=== PATIENT | male | born 1945 | race Caucasian/White ===

== ENCOUNTER 2018-09-11 22:40 | Observation (INO) | payer OTHER ==
--- NOTE | 2018-09-11 22:55 | ER ---
Nurse's Notes [facility] Name: Neftaly Varghese Age: 72 yrs Sex: Male : 1945 Arrival Date: 09/11/2018 Time: 22:45 Bed 4 Private MD: Diagnosis: Other chest pain;Bradycardia, unspecified;Cardiomegaly;Unspecified kidney failure Presentation: 09/11 22:48 Presenting complaint: Patient states: he was watching TV and had a sudden onset of aa1 substernal CP which lasted approx 15 mins. Reports pain did not radiate. Denies N/V, SOB or diaphoresis. Reports pain at this time has completely resolved. 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 Transition of care: patient was not received from another setting of care. Onset of symptoms was September 11, 2018. Risk Assessment: Do you want to hurt yourself or someone else? Patient reports no desire to harm self or others. Initial Sepsis Screen: Does the patient meet any 2 criteria? No. Patient's initial sepsis screen is negative. Does the patient have a suspected source of infection? No. Patient's initial sepsis screen is negative. Care prior to arrival: IV initiated. 18 GA, in the right antecubital area, Glucose check: 138 Oxygen administered. via nasal cannula. 22:48 Method Of Arrival: EMS: [facility] aa1 22:48 Acuity: DEVONTE 2 aa1 Triage Assessment: 22:57 General: Appears in no apparent distress. comfortable, Behavior is calm, cooperative, aa1 appropriate for age. Pain: Denies pain. Historical: - Allergies: 22:57 Codeine; aa1 - Home Meds: 22:57 cholecalciferol (vitamin D3) oral oral daily [Active]; Fish Oil 720-1,200 mg Oral cap aa1 twice a day for Arteriosclerotic Vascular Disease Prevention [Active]; aspirin 81 mg Oral TbEC 1 tab once daily for Prevention of Transient Ischemic Attacks [Active]; folic acid 1 mg Oral tab 1 tab once daily for Folate Deficiency [Active]; clopidogrel 75 mg Oral tab 1 tab once daily for Thrombosis Prevention after Percutaneous Coronary Intervention [Active]; lisinopril 5 mg Oral tab 1 tab once daily for Hypertension [Active]; amlodipine 10 mg tab 1 tab once daily for Hypertension [Active]; Zetia 10 mg Oral tab 1 tab once daily for Hyperlipidemia [Active]; Crestor 20 mg Oral tab 1 tab once daily for Mixed Hyperlipidemia [Active]; metoprolol succinate 50 mg oral Tb24 1 tab once daily [Active]; trazodone 50 mg Oral tab 1 tab nightly [Active]; Nitrostat 0.4 mg SL subl 1 tab every 5 minutes [Active]; melatonin 5 mg Oral cap nightly [Active]; 23:48 tamsulosin 0.4 mg Oral cp24 1 cap once daily for Urolithiasis [Active]; temazepam 30 mg mg2 Oral cap 1 cap once daily for insomnia [Active]; Vitamin D Oral 5000 unit daily [Active]; - PMHx: 22:57 Hyperlipidemia; Hypertension; TIA; Myocardial infarction; aa1 - PSHx: 22:57 Heart stents; ankle sx; aa1 - Immunization history:: Flu vaccine is not up to date. - Social history:: Smoking status: Patient uses tobacco products, smokes one pack cigarettes per day. - Family history:: not pertinent. - Ebola Screening: : No symptoms or risks identified at this time. Screenin:46 Abuse screen: Denies threats or abuse. Denies injuries from another. Nutritional mg2 screening: No deficits noted. Tuberculosis screening: No symptoms or risk factors identified. Fall Risk IV access (20 points). Gait- Weak (10 pts.). Assessment: 23:45 General: Appears in no apparent distress. comfortable, Behavior is calm, cooperative. mg2 Pain: Denies pain. Neuro: Level of Consciousness is awake, alert, obeys commands, Oriented to person, place, time, situation. Cardiovascular: Capillary refill < 3 seconds Patient's skin is warm and dry. Respiratory: Airway is patent Respiratory effort is even, unlabored, Respiratory pattern is regular, symmetrical. GI: No signs and/or symptoms were reported involving the gastrointestinal system. : No signs and/or symptoms were reported regarding the genitourinary system. EENT: No signs and/or symptoms were reported regarding the EENT system. Derm: No signs and/or symptoms reported regarding the dermatologic system. Derm: Musculoskeletal: Circulation, motion, and sensation intact. Capillary refill < 3 seconds. Vital Signs: 22:42 BP 146 / 91; Pulse 63; Resp 16; Temp 98.1; Pulse Ox 98% on R/A; Weight 86.18 kg; Height aa1 5 ft. 9 in. (175.26 cm); Pain 0/10; 22:54 Weight 86.18 kg; mg2 09/12 00:05 BP 152 / 80; Pulse 56; Resp 18; Temp 98.1(O); Pulse Ox 98% on R/A; Pain 0/10; mg2 09/11 22:42 Body Mass Index 28.06 (86.18 kg, 175.26 cm) aa1 ED Course: 09/11 22:42 Arm band placed on left wrist. Patient placed in an exam room, on a stretcher. aa1 22:42 Patient has correct armband on for positive identification. Placed in gown. Bed in low aa1 position. Call light in reach. Side rails up X2. residential monitor on. Pulse ox on. NIBP on. 22:45 Patient arrived in ED. maria e 22:46 Hi Forman MD is Attending Physician. maria e 22:50 Triage completed. aa1 22:50 EKG done, by ED staff, reviewed by Hi Forman MD. aa1 22:53 Dash Cazares RN is Primary Nurse. mg2 22:53 J Luis Casanova MD is Hospitalizing Provider. maria e 23:00 XRAY Chest (1 view) In Process Unspecified. EDMS 23:47 No provider procedures requiring assistance completed. Maintain EMS IV. Dressing mg2 intact. Good blood return noted. Site clean \T\ dry. Gauge \T\ site: 20 \T\ RAC. 09/12 00:04 Patient admitted, IV remains in place. mg2 Administered Medications: 09/11 23:13 Drug: Lovenox 1 mg/kg Route: Sub-Q; Site: right lower abdomen; mg2 23:49 Follow up: Response: No adverse reaction; Marked relief of symptoms mg2 23:14 Drug: NS 0.9% 1000 ml Route: IV; Rate: 125 ml/hr; Site: right antecubital; mg2 23:50 Follow up: Response: No adverse reaction; IV Status: Infusion continued upon admission; mg2 IV Intake: 125ml 23:14 Drug: Pepcid 20 mg Route: IVP; Site: right antecubital; mg2 23:49 Follow up: Response: No adverse reaction; Marked relief of symptoms mg2 Intake: 23:50 IV: 125ml; Total: 125ml. mg2 Outcome: 22:53 Decision to Hospitalize by Provider. maria e 09/12 00:04 Admitted to Tele accompanied by tech, via wheelchair, room 428, with chart, Report mg2 called to YEIMI Crow Condition: stable Instructed on the need for admit, Demonstrated understanding of instructions. 00:24 Patient left the ED. mg2 Signatures: Dispatcher [employer] EDMS Basia Hobbs RN RN aa1 Hi Forman MD MD cha Gardose, Michele, RN RN mg2
--- NOTE | 2018-09-11 22:55 | EDPHYS ---
Physician Documentation [facility] Name: Neftaly Varghese Age: 72 yrs Sex: Male : 1945 Arrival Date: 09/11/2018 Time: 22:45 Bed 4 Private MD: ED Physician Hi Forman HPI: 09/11 22:49 This 72 yrs old Male presents to ER via Unassigned with complaints of chest maria e pain. 22:49 The patient or guardian reports chest pain that is located primarily in the substernal maria e area. Onset: just prior to arrival. The pain does not radiate. Associated signs and symptoms: The patient has no apparent associated signs or symptoms. The chest pain is described as causing indigestion, a pressure. Duration: The patient or guardian reports a single episode, that is now resolved. Modifying factors: The symptoms are alleviated by nothing. the symptoms are aggravated by nothing. Severity of pain: At its worst the pain was moderate in the emergency department the pain has resolved and did so just prior to arrival. The patient has experienced similar episodes in the past, several times. Historical: - Allergies: 22:57 Codeine; aa1 - Home Meds: 22:57 cholecalciferol (vitamin D3) oral oral daily [Active]; Fish Oil 720-1,200 mg Oral cap aa1 twice a day for Arteriosclerotic Vascular Disease Prevention [Active]; aspirin 81 mg Oral TbEC 1 tab once daily for Prevention of Transient Ischemic Attacks [Active]; folic acid 1 mg Oral tab 1 tab once daily for Folate Deficiency [Active]; clopidogrel 75 mg Oral tab 1 tab once daily for Thrombosis Prevention after Percutaneous Coronary Intervention [Active]; lisinopril 5 mg Oral tab 1 tab once daily for Hypertension [Active]; amlodipine 10 mg tab 1 tab once daily for Hypertension [Active]; Zetia 10 mg Oral tab 1 tab once daily for Hyperlipidemia [Active]; Crestor 20 mg Oral tab 1 tab once daily for Mixed Hyperlipidemia [Active]; metoprolol succinate 50 mg oral Tb24 1 tab once daily [Active]; trazodone 50 mg Oral tab 1 tab nightly [Active]; Nitrostat 0.4 mg SL subl 1 tab every 5 minutes [Active]; melatonin 5 mg Oral cap nightly [Active]; 23:48 tamsulosin 0.4 mg Oral cp24 1 cap once daily for Urolithiasis [Active]; temazepam 30 mg mg2 Oral cap 1 cap once daily for insomnia [Active]; Vitamin D Oral 5000 unit daily [Active]; - PMHx: 22:57 Hyperlipidemia; Hypertension; TIA; Myocardial infarction; aa1 - PSHx: 22:57 Heart stents; ankle sx; aa1 - Immunization history:: Flu vaccine is not up to date. - Social history:: Smoking status: Patient uses tobacco products, smokes one pack cigarettes per day. - Family history:: not pertinent. - Ebola Screening: : No symptoms or risks identified at this time. ROS: 22:49 Constitutional: Negative for fever, chills, and weight loss, Eyes: Negative for injury, maria e pain, redness, and discharge, ENT: Negative for injury, pain, and discharge, Neck: Negative for injury, pain, and swelling, Respiratory: Negative for shortness of breath, cough, wheezing, and pleuritic chest pain, Abdomen/GI: Negative for abdominal pain, nausea, vomiting, diarrhea, and constipation, Back: Negative for injury and pain, : Negative for injury, bleeding, discharge, and swelling, MS/Extremity: Negative for injury and deformity, Skin: Negative for injury, rash, and discoloration, Neuro: Negative for headache, weakness, numbness, tingling, and seizure, Psych: Negative for depression, anxiety, suicide ideation, homicidal ideation, and hallucinations, Allergy/Immunology: Negative for hives, rash, and allergies, Endocrine: Negative for neck swelling, polydipsia, polyuria, polyphagia, and marked weight changes, Hematologic/Lymphatic: Negative for swollen nodes, abnormal bleeding, and unusual bruising. 22:49 Cardiovascular: Positive for chest pain. Exam: 22:49 Constitutional: This is a well developed, well nourished patient who is awake, alert, maria e and in no acute distress. Head/Face: Normocephalic, atraumatic. Eyes: Pupils equal round and reactive to light, extra-ocular motions intact. Lids and lashes normal. Conjunctiva and sclera are non-icteric and not injected. Cornea within normal limits. Periorbital areas with no swelling, redness, or edema. ENT: Nares patent. No nasal discharge, no septal abnormalities noted. Tympanic membranes are normal and external auditory canals are clear. Oropharynx with no redness, swelling, or masses, exudates, or evidence of obstruction, uvula midline. Mucous membranes moist. Neck: Trachea midline, no thyromegaly or masses palpated, and no cervical lymphadenopathy. Supple, full range of motion without nuchal rigidity, or vertebral point tenderness. No Meningismus. Chest/axilla: Normal chest wall appearance and motion. Nontender with no deformity. No lesions are appreciated. Respiratory: Lungs have equal breath sounds bilaterally, clear to auscultation and percussion. No rales, rhonchi or wheezes noted. No increased work of breathing, no retractions or nasal flaring. Abdomen/GI: Soft, non-tender, with normal bowel sounds. No distension or tympany. No guarding or rebound. No evidence of tenderness throughout. Back: No spinal tenderness. No costovertebral tenderness. Full range of motion. Male : Normal genitalia with no discharge or lesions. Skin: Warm, dry with normal turgor. Normal color with no rashes, no lesions, and no evidence of cellulitis. MS/ Extremity: Pulses equal, no cyanosis. Neurovascular intact. Full, normal range of motion. Neuro: Awake and alert, GCS 15, oriented to person, place, time, and situation. Cranial nerves II-XII grossly intact. Motor strength 5/5 in all extremities. Sensory grossly intact. Cerebellar exam normal. Normal gait. Psych: Awake, alert, with orientation to person, place and time. Behavior, mood, and affect are within normal limits. 22:49 Cardiovascular: Rate: normal, Rhythm: regular, Pulses: no pulse deficits are appreciated, Heart sounds: normal, Edema: is not appreciated, JVD: is not appreciated. Vital Signs: 22:42 BP 146 / 91; Pulse 63; Resp 16; Temp 98.1; Pulse Ox 98% on R/A; Weight 86.18 kg; Height aa1 5 ft. 9 in. (175.26 cm); Pain 0/10; 22:54 Weight 86.18 kg; mg2 09/12 00:05 BP 152 / 80; Pulse 56; Resp 18; Temp 98.1(O); Pulse Ox 98% on R/A; Pain 0/10; mg2 09/11 22:42 Body Mass Index 28.06 (86.18 kg, 175.26 cm) aa1 MDM: 09/11 22:46 Patient medically screened. [facility] 22:49 Data reviewed: vital signs, nurses notes, lab test result(s), EKG, radiologic studies, maria e plain films. 09/11 22:48 Order name: Basic Metabolic Panel; Complete Time: 00:10 [facility] 09/11 22:48 Order name: CBC with Diff; Complete Time: 00:10 [facility] 09/11 22:48 Order name: LFT's; Complete Time: 00:10 [facility] 09/11 22:48 Order name: Magnesium; Complete Time: 00:10 [facility] 09/11 22:48 Order name: NT PRO-BNP; Complete Time: 00:10 [facility] 09/11 22:48 Order name: PT-INR; Complete Time: 00:10 [facility] 09/11 22:48 Order name: Troponin (emerg Dept Use Only); Complete Time: 00:10 [facility] 09/11 22:48 Order name: Lipase; Complete Time: 00:10 [facility] 09/11 23:18 Order name: Basic Metabolic Panel [facility] 09/11 23:18 Order name: CBC with Automated Diff [facility] 09/11 23:18 Order name: Lipid Profile [facility] 09/11 23:18 Order name: Lipid Profile [facility] 09/11 23:18 Order name: Troponin I [facility] 09/11 23:18 Order name: Troponin I [facility] 09/11 22:48 Order name: XRAY Chest (1 view); Complete Time: 23:35 [facility] 09/11 22:48 Order name: EKG; Complete Time: 22:49 [facility] 09/11 22:48 Order name: Cardiac monitoring; Complete Time: 23:14 [facility] 09/11 22:48 Order name: EKG - Nurse/Tech; Complete Time: 23:14 [facility] 09/11 22:48 Order name: IV Saline Lock; Complete Time: 23:14 [facility] 09/11 23:18 Order name: Heart Healthy [facility] 09/11 23:18 Order name: Echo with Doppler [facility] 09/11 23:18 Order name: EKG Electrocardiogram [facility] 09/11 23:18 Order name: EKG Electrocardiogram [facility] 09/11 23:18 Order name: Troponin I [facility] 09/11 23:18 Order name: Troponin I [facility] 09/11 23:18 Order name: Troponin I [facility] 09/11 23:18 Order name: Troponin I [facility] 09/11 22:48 Order name: Labs collected and sent; Complete Time: 23:15 [facility] 09/11 22:48 Order name: O2 Per Protocol; Complete Time: 23:15 [facility] 09/11 22:48 Order name: O2 Sat Monitoring; Complete Time: 23:15 [facility] Administered Medications: 23:13 Drug: Lovenox 1 mg/kg Route: Sub-Q; Site: right lower abdomen; mg2 23:49 Follow up: Response: No adverse reaction; Marked relief of symptoms mg2 23:14 Drug: NS 0.9% 1000 ml Route: IV; Rate: 125 ml/hr; Site: right antecubital; mg2 23:50 Follow up: Response: No adverse reaction; IV Status: Infusion continued upon admission; mg2 IV Intake: 125ml 23:14 Drug: Pepcid 20 mg Route: IVP; Site: right antecubital; mg2 23:49 Follow up: Response: No adverse reaction; Marked relief of symptoms mg2 Disposition: 09/11/18 22:53 Hospitalization ordered by J Luis Casanova for Observation. Preliminary diagnosis are Other chest pain, Bradycardia, unspecified, Cardiomegaly, Unspecified kidney failure. - Bed requested for Telemetry/MedSurg (observation). - Status is Observation. mg2 - Condition is Stable. - Problem is new. - Symptoms have improved. UTI on Admission? No Signatures: Dispatcher [employer] EDMS Miroslava Valentin RN RN Basia Lorenzo RN RN aa1 Hi Forman MD MD cha Gardose, Michele, RN RN mg2 Corrections: (The following items were deleted from the chart) 23:32 22:53 Hospitalization Ordered by J Luis Casanova MD for Observation. Preliminary cooper diagnosis is Other chest pain; Bradycardia, unspecified. Bed requested for Telemetry/MedSurg (observation). Status is Observation. Condition is Stable. Problem is new. Symptoms have improved. UTI on Admission? No. maria e 23:35 23:32 09/11/2018 22:53 Hospitalization Ordered by J Luis Casanova MD for Observation. maria e Preliminary diagnosis is Other chest pain; Bradycardia, unspecified. Bed requested for Telemetry/MedSurg (observation). Status is Observation. Condition is Stable. Problem is new. Symptoms have improved. UTI on Admission? No. cooper 09/12 00:10 09/11 23:35 09/11/2018 22:53 Hospitalization Ordered by J Luis Casanova MD for maria e Observation. Preliminary diagnosis is Other chest pain; Bradycardia, unspecified; Cardiomegaly. Bed requested for Telemetry/MedSurg (observation). Status is Observation. Condition is Stable. Problem is new. Symptoms have improved. UTI on Admission? No. maria e 09/12 00:24 00:10 09/11/2018 22:53 Hospitalization Ordered by J Luis Casanova MD for Observation. mg2 Preliminary diagnosis is Other chest pain; Bradycardia, unspecified; Cardiomegaly; Unspecified kidney failure. Bed requested for Telemetry/MedSurg (observation). Status is Observation. Condition is Stable. Problem is new. Symptoms have improved. UTI on Admission? No. maria e
[2018-09-11] MEDS ORDERED: NA CHLORIDE 0.9% 1,000 ML ONE (23:09)
[2018-09-11] MEDS ORDERED: FAMOTIDINE 20 MG/2 ML VIAL IV ONE (23:09)
[2018-09-11] MEDS ORDERED: ENOXAPARIN 80 MG/0.8 ML SQ ONE (23:09)
--- NOTE | 2018-09-11 23:11 | RAD REPORT ---
EXAM DESCRIPTION: RAD - Chest Single View - 09/11/2018 11:00 pm CLINICAL HISTORY: CHEST PAIN Chest pain. COMPARISON: Abdomen 1 View (KUB) dated 07/28/2017; Abdomen 1 View (KUB) dated 11/03/2016; Abdomen 1 Vi ew (KUB) dated 08/06/2016; Abdomen 1 View (KUB) dated 06/30/2016; Ct Low Dose Chest Screening dated 03/23/2017; Chest Single View dated 10/03/2015 FINDINGS: Portable technique limits examination quality. The lungs are emphysematous but grossly clear. The heart is mildly enlarged in size. No displaced fra ctures. IMPRESSION: Mild cardiomegaly. Mild COPD.
[2018-09-11] MEDS ORDERED: MORPHINE 4 MG/ML SYR IV PRN (23:13)
[2018-09-11] MEDS ORDERED: ACETAMINOPHEN 500 MG TAB PO PRN (23:13)
[2018-09-11] MEDS ORDERED: ALPRAZOLAM 0.25 MG TABLET PO PRN (23:13)
[2018-09-11 23:37] LABS: Absolute Lymphocytes (CBC) 1.2 K/uL (0.7-4.9); Absolute Monocytes 0.6 K/uL (0.1-1.3); Absolute Neutrophil 4.7 K/uL (1.8-8.0); Basophils % 0.5 % (0-1.3); Eosinophils % 3.1 % (0-4.4); Hematocrit 41.6 % (39.6-49.0); MPV 7.8 fL (7.6-11.3); Monocytes % 8.3 % (3.3-12.3); RBC Red Blood Cell Count 4.54 M/uL (4.33-5.43)
[2018-09-11 23:38] LABS: Protime INR 0.96
[2018-09-11 23:58] LABS: ALT/SGPT 20 U/L (12-78); AST/SGOT 15 U/L (15-37); Albumin 3.4 g/dL (3.4-5.0); Alkaline Phosphatase 99 U/L (45-117); BUN Blood Urea Nitrogen 27 mg/dL (7-18); Bicarbonate 23 mmol/L (21-32); Bilirubin Direct < 0.1 mg/dL (0-0.2); Bilirubin Total 0.3 mg/dL (0.2-1.0); Glucose Level 105 mg/dL (74-106); Lipase 239 U/L (73-393); Magnesium 2.2 mg/dL (1.8-2.4); NT PRO-BNP 480 pg/mL (<125); Potassium 4.2 mmol/L (3.5-5.1); Protein, Total 6.7 g/dL (6.4-8.2); Sodium Level 141 mmol/L (136-145); Troponin (Emerg Dept Use Only) 0.03 ng/mL (0.0-0.045)
[2018-09-12 01:19] VITALS: BMI 27.4
[2018-09-12] MEDS ORDERED: NA CHLORIDE 0.9% 1,000 ML IV SCH (02:00)
[2018-09-12 04:58] LABS: Absolute Lymphocytes (CBC) 1.5 K/uL (0.7-4.9); Absolute Monocytes 0.5 K/uL (0.1-1.3); Absolute Neutrophil 4.3 K/uL (1.8-8.0); Basophils % 0.6 % (0-1.3); Eosinophils % 3.2 % (0-4.4); Hematocrit 40.7 % (39.6-49.0); Lymphocytes % 22.4 % (15.3-44.8); MPV 7.9 fL (7.6-11.3); Monocytes % 6.9 % (3.3-12.3); RBC Red Blood Cell Count 4.47 M/uL (4.33-5.43)
[2018-09-12 05:09] LABS: Potassium 4.5 mmol/L (3.5-5.1)
--- NOTE | 2018-09-12 07:05 | EKG ---
Test Date: 2018-09-11 Test Time: 22:48:38 Supervisor Tower: MG MEASUREMENT RESULTS: Intervals: Rate: 56 MT: QRSD: 104 QT: 442 QTc: 426 [place]: P: MT: QRS: 37 T: 98 INTERPRETIVE STATEMENTS: Sinus bradycardia Non specific ST and T wave abnormality Abnormal ECG Compared to ECG 12/04/2015 08:38:51 ST (T wave) deviation now present Electronically Signed On 09-12-18 07:05:09 CDT by Tyrel Mann
[2018-09-12] MEDS ORDERED: NITROGLYCERIN 0.4 MG/TAB SL PRN (08:00)
[2018-09-12] MEDS ORDERED: IRON PO SCH (09:00)
[2018-09-12] MEDS ORDERED: ENOXAPARIN 40 MG/0.4 ML SQ SCH (09:00)
[2018-09-12] MEDS ORDERED: [UNRECOGNIZED DRUG - OTHER] PO SCH (09:00)
[2018-09-12] MEDS ORDERED: FOLIC ACID 1 MG TABLET PO SCH (09:00)
[2018-09-12] MEDS ORDERED: ASPIRIN EC 81 MG TAB PO SCH ×2 (09:00)
[2018-09-12] MEDS ORDERED: LISINOPRIL 5 MG TAB PO SCH (09:00)
[2018-09-12] MEDS ORDERED: MV MN PO SCH (09:00)
[2018-09-12] MEDS ORDERED: METOPROLOL TAR 50 MG TAB PO SCH (09:00)
[2018-09-12] MEDS ORDERED: METOPROLOL XL 50 MG TAB PO SCH (09:00)
[2018-09-12] MEDS ORDERED: FISH OIL PO SCH (09:00)
[2018-09-12] MEDS ORDERED: EPA PO SCH (09:00)
[2018-09-12] MEDS ORDERED: HERBAL CMPLX PO SCH (09:00)
[2018-09-12] MEDS ORDERED: DHA PO SCH (09:00)
[2018-09-12] MEDS ORDERED: CLOPIDOGREL 75 MG TABLET PO SCH (09:00)
[2018-09-12] MEDS ORDERED: EZETIMIBE 10 MG TAB PO SCH (09:00)
[2018-09-12] MEDS ORDERED: VITAMIN D 5,000 UNIT CAP PO SCH (09:00)
[2018-09-12] MEDS ORDERED: REGADENOSON 0.4 MG/5 ML SYR IV ONE (09:38)
[2018-09-12 10:25] VITALS: O2SAT 97
--- NOTE | 2018-09-12 11:33 | ECHO ---
HEIGHT: 5 ft 9 in WEIGHT: 186 lb 0 oz DATE OF STUDY: 09/12/[address]: J Luis Casanova MD 2-DIMENSIONAL: YES M.MODE: YES DOPPLER: YES COLOR FLOW: YES TDS: NO PORTABLE: NO DEFINITY: NO BUBBLE STUDY: NO DIAGNOSIS: CHEST PAIN, RULE OUT ACS CARDIAC HISTORY: CATHERIZATION: NO SURGERY: NO PROSTHETIC VALVE: NO PACEMAKER: NO MEASUREMENTS (cm) DIASTOLIC (NORMALS) SYSTOLIC (NORMALS) IVSd 1.0 (0.6-1.2) LA Diam 3.5 (1.9-4.0) LVEF 64% LVIDd 5.3 (3.5-5.7) LVIDs 3.5 (2.0-3.5) %FS 35% LVPWd 1.2 (0.6-1.2) Ao Diam 2.7 (2.0-3.7) 2 DIMENSIONAL ASSESSMENT: RIGHT ATRIUM: NORMAL LEFT ATRIUM: NORMAL RIGHT VENTRICLE: NORMAL LEFT VENTRICLE: NORMAL TRICUSPID VALVE: NORMAL MITRAL VALVE: NORMAL PULMONIC VALVE: NORMAL AORTIC VALVE: NORMAL PERICARDIAL EFFUSION: NONE AORTIC ROOT: NORMAL LEFT VENTRICULAR WALL MOTION: NORMAL DOPPLER/COLOR FLOW: NORMAL COMMENTS: NORMAL 2D ECHOCARDIOGRAM WITH DOPPLER. TECHNOLOGIST: Dakota HOBSON
--- NOTE | 2018-09-12 11:42 | TREADPHA ---
DX: CHEST PAIN Date of Study: 09/12/2018 Ht: 5 9 Wt: 186 lb 0 oz Consulting Physician: JAMIE MEDICATIONS: TYLENOL, XANAX, NORVASC, ASPIRIN, PLAVIX, LOVENOX, LISINOPRIL, TOPROL XL, LOPRESSOR, NITROSTAT HISTORY: 72 YEAR OLD MALE HERE FOR CHEST PAIN. HISTORY OF HYPERLIPIDEMIA, TIA, HYPERTENSION AND MYOCARDIAL INFARCTION. PHYSICIAL EXAMINATION: RESTING B.P.: 155/73 RESTING H.R.: 45 RESTING EKG: SINUS BRADYCARDIA. NON SPECIFIC T ABNORMALITY, CANNOT RULE OUT SEPTAL INFARCTION. PROTOCOL: LEXISCAN EXERCISE TIME: 3:30 B.P. AT [place] STRESS: 139/60 IMPRESSION: LEXISCAN STRESS TEST PERFORMED. CARDIOLITE INJECTED PER PROTOCOL. NO PREMATURE VENTRICUALR COMPLEXES AND PREMATURE ATRIAL COMPLEXES NOTED. DENIES ANY CHEST PAIN. SEE NUCLEAR MEDICINE REPORT. NON DIAGNOSTIC EKG WITH STRESS.
--- NOTE | 2018-09-12 11:46 | RAD REPORT ---
EXAM DESCRIPTION: NM - Rest Stress Cardiac Imaging - 09/12/2018 11:38 am CLINICAL HISTORY: Chest pain COMPARISON: None. TECHNIQUE: The patient was administered approximately 10 mCi of Tc 99m Sestamibi prior to resting SP ECT imaging of the heart. The patient was then administered approximately 30 mCi of Tc 99m Sestamibi following exercise or pharmacologic stress. Multiplanar SPECT images were reviewed. FINDINGS: The end diastolic volume is 132 ml, the end systolic volume is 73 ml, and the ejection fra ction is 45 %. A large fixed defect involves the entirety of the inferior wall from base to apex. This extends to in clude portions of the septum and lateral wall. Stress-induced ischemia is not identifiable. IMPRESSION: No stress-induced ischemia. Old infarction changes with large fixed defect involving the entire inferior wall from base to apex. Portions of the septum and lateral wall also included. End-diastolic volume is enlarged at 1:00 32 milliliters. Ejection fraction is below normal at 45%.
[2018-09-12 12:24] VITALS: BP 161/70; TEMP 97.5
[2018-09-12] MEDS ORDERED: AMLODIPINE 10 MG TAB PO SCH (13:00)
--- NOTE | 2018-09-12 14:08 | P.DS ---
Admission Date: 09/11/18 Discharge Date: 09/12/18 Primary Care Provider: Dr. Davis; Cardiology-Dr. Garber Disposition: ROUTINE DISCHARGE Discharge Condition: GOOD Reason for Admission: Chest pain Consultations: Cardiology-Dr. Garber Procedures: ECHO: Ejection fraction 64% LEFT VENTRICULAR WALL MOTION: NORMAL DOPPLER/COLOR FLOW: NORMAL COMMENTS: NORMAL 2D ECHOCARDIOGRAM WITH DOPPLER. Cardiac stress test: COMPARISON: None. TECHNIQUE: The patient was administered approximately 10 mCi of Tc 99m Sestamibi prior to resting SPECT imaging of the heart. The patient was then administered approximately 30 mCi of Tc 99m Sestamibi following exercise or pharmacologic stress. Multiplanar SPECT images were reviewed. FINDINGS: The end diastolic volume is 132 ml, the end systolic volume is 73 ml , and the ejection fraction is 45 %. A large fixed defect involves the entirety of the inferior wall from base to apex. This extends to include portions of the septum and lateral wall. Stress- induced ischemia is not identifiable. IMPRESSION: No stress-induced ischemia. Old infarction changes with large fixed defect involving the entire inferior wall from base to apex. Portions of the septum and lateral wall also included. End-diastolic volume is enlarged at 1:00 32 milliliters. Ejection fraction is below normal at 45%. Medical Problem List: Chest pain with history of CAD Hypertension Bradycardia secondary to medication Peripheral vascular disease Hyperlipidemia BPH Depression Brief History of Present Illness: 72-year-old male presented to emergency room with chest pain. Patient with underlying history of CAD, hypertension, hyperlipidemia. Patient admitted for further evaluation. Hospital Course: Patient presented with chest pain. Patient with underlying history of CAD and peripheral vascular disease. Patient had slight elevation of cardiac enzymes. Echocardiogram shows normal ejection fraction. Cardiac stress test showed no stress-induced ischemia. Case discussed with his knife finisher-Dr. Garber. No further cardiac intervention recommended. Patient had mild bradycardia. Cardiology recommends to decrease Toprol XL 25 mg at discharge. Patient will also be provided nitroglycerin to be use as needed for chest pain. Recommend to follow up with cardiology later this week to follow up this hospitalization and continue his care. At discharge he is without any significant chest pain. Patient will continue with aspirin 81 mg daily and Plavix 75 mg daily. Patient with underlying hypertension. Medications have been adjusted. Metoprolol has been decreased due to bradycardia. At discharge he will continue with lisinopril 5 mg daily, Norvasc 10 mg 1 pill twice daily, and Toprol XL 25 mg daily. Patient will follow up with cardiology later this week. Further adjustment can be done by cardiology. Patient with BPH. At discharge, hhe will continue with Flomax 0.4 mg daily. Patient with depression. Patient will continue with trazodone 50 mg at bedtime. Patient with hyperlipidemia. At discharge he will continue with Zetia 10 mg daily, fish oil 1 pill twice daily, and Crestor 20mg daily. Vital Signs/Physical Exam: Temp Pulse Resp BP Pulse Ox 97.5 F 48 L 18 161/70 H 96 09/12/18 12:00 09/12/18 13:38 09/12/18 12:00 09/12/18 13:38 09/12/18 12:00 General: Alert, In no apparent distress, Oriented x3, Cooperative HEENT: Atraumatic Neck: Supple Respiratory: Clear to auscultation bilaterally, Normal air movement Cardiovascular: Normal pulses, Regular rate/rhythm Gastrointestinal: Normal bowel sounds, Soft and benign, Non-distended, No tenderness, No masses, No rebound, No guarding Musculoskeletal: No erythema, No tenderness, No warmth Integumentary: No tenderness/swelling, No erythema, No warmth, No cyanosis Neurological: Normal speech, Normal strength at 5/5 x4 extr, Normal tone, Normal affect Laboratory Data at Discharge: WBC 6.5 K/uL (4.3-10.9) 09/12/18 04:32 Hgb 13.8 g/dL (13.6-17.9) 09/12/18 04:32 Hct 40.7 % (39.6-49.0) 09/12/18 04:32 Plt Count 226 K/uL (152-406) 09/12/18 04:32 PT 11.4 SECONDS (9.5-12.5) 09/11/18 23:00 INR 0.96 09/11/18 23:00 Sodium 141 mmol/L (136-145) 09/12/18 04:32 Potassium 4.5 mmol/L (3.5-5.1) 09/12/18 04:32 BUN 25 mg/dL (7-18) H 09/12/18 04:32 Creatinine 2.23 mg/dL (0.55-1.3) H 09/12/18 04:32 Glucose 105 mg/dL (74-106) 09/12/18 04:32 Magnesium 2.2 mg/dL (1.8-2.4) 09/11/18 23:00 Total Bilirubin 0.3 mg/dL (0.2-1.0) 09/11/18 23:00 AST 15 U/L (15-37) 09/11/18 23:00 ALT 20 U/L (12-78) 09/11/18 23:00 Alkaline Phosphatase 99 U/L (45-117) 09/11/18 23:00 Troponin I 0.13 ng/mL (0.0-0.045) H 09/12/18 04:32 Triglycerides Cancelled 09/12/18 06:00 Cholesterol Cancelled 09/12/18 06:00 HDL Cholesterol Cancelled 09/12/18 06:00 Cholesterol/HDL Ratio Cancelled 09/12/18 06:00 Lipase 239 U/L (73-393) 09/11/18 23:00 Home Medications: Clopidogrel Bisulfate [Plavix*] 75 mg PO DAILY 06/25/13 Tamsulosin [Flomax*] 0.4 mg PO BEDTIME 06/25/13 Lisinopril [Prinivil*] 5 mg PO DAILY 12/04/15 Melatonin 5 mg PO BEDTIME 06/24/16 Amlodipine [Norvasc*] 10 mg PO BID tab 09/12/18 Aspirin [Ecotrin 81 MG] 81 mg PO DAILY 09/12/18 Cholecalciferol (Vitamin D3) [Vitamin D 5,000 IU Cap*] 1 cap PO DAILY 09/12/18 Ezetimibe [Zetia*] 10 mg PO DAILY 09/12/18 Fish Oil/Dha/Epa [Fish Oil 1,200 mg Fish Oil] 1 cap PO BID 09/12/18 Folic Acid 1 mg PO DAILY 09/12/18 Metoprolol Succinate [Toprol Xl] 25 mg PO DAILY #30 tab 09/12/18 Mv-Mn/Iron/FA/Herbal Cmplx#190 [Vitamin D3 Complete Caplet] 1 tab PO DAILY 09/12 Nitroglycerin [Nitrostat*] 0.4 mg SL SEECOM PRN #30 tab 09/12/18 Rosuvastatin Calcium [Crestor] 20 mg PO DAILY 04/29/19 Trazodone [Desyrel*] 50 mg PO BEDTIME 09/12/18 New Medications: Metoprolol Succinate [Toprol Xl] 25 mg PO DAILY #30 tab Nitroglycerin [Nitrostat*] 0.4 mg SL SEECOM PRN #30 tab PRN Reason: Shortness Of Breath Patient Discharge Instructions: 1. Recommend to follow up with his PCP in 1 week to follow up this hospitalization. 2. Patient presented with chest pain. Patient with underlying history of CAD and peripheral vascular disease. Patient had slight elevation of cardiac enzymes. Echocardiogram shows normal ejection fraction. Cardiac stress test showed no stress-induced ischemia. Case discussed with his knife finisher-Dr. Garber. No further cardiac intervention recommended. Patient had mild bradycardia. Cardiology recommends to decrease Toprol XL 25 mg at discharge. Patient will also be provided nitroglycerin to be use as needed for chest pain. Recommend to follow up with cardiology later this week to follow up this hospitalization and continue his care. Patient will continue with aspirin 81 mg daily and Plavix 75 mg daily. 3. Patient with underlying hypertension. Medications have been adjusted. Metoprolol has been decreased due to bradycardia. At discharge he will continue with lisinopril 5 mg daily, Norvasc 10 mg 1 pill twice daily, and Toprol XL 25 mg daily. Patient will follow up with cardiology later this week. Further adjustment can be done by cardiology. 4. Patient with BPH. At discharge, hhe will continue with Flomax 0.4 mg daily. 5. Patient with depression. Patient will continue with trazodone 50 mg at bedtime. 6. Patient with hyperlipidemia. At discharge he will continue with Zetia 10 mg daily, fish oil 1 pill twice daily, and Crestor 20mg daily. Diet: AHA Activity: Ad wandy Time spent managing pt's care (in minutes): 55
--- NOTE | 2018-09-12 16:27 | CON ---
History Of Present Illness: Mr. Varghese is 72, came to the hospital with chest pain. Chest pain res olved. His EKG is not indicative of acute AR, but troponins are elevated. He is being evaluated for possible worsening of underlying ischemic heart disease. He had a myocardial infarction somewhere a round 10 years ago. He is not certain about it. He was treated with a stent. In 2016, we attempted to do a cardiac cath, and we were unable to accomplish it because of his aorta being occluded. A br achial artery cath was done from the left arm. It showed that his LAD stent from 2008 or earlier was widely patent. There is mild disease in the circumflex at right. Normal ejection fraction. He has been getting medical therapy since then. Medications: His home medications have been amlodipine, Flomax, Plavix, lisinopril, nitroglycerin, m elatonin, trazodone, Crestor, metoprolol, Zetia, folic acid, aspirin, fish oil. Allergies: HE IS ALLERGIC TO CODEINE AND FENTANYL. Physical Examination: General: He is 5 feet 9 inches, 186 pounds. HEENT: Unremarkable. Lungs: Clear. Carotids, no bruit. Heart: Exam within normal limits. Distal pulses diminished. Imaging: His electrocardiogram shows sinus bradycardia and nonspecific ST and T-wave abnormality. Impression: The patient smokes cigarettes. I am concerned that the patient may have underlying isch emic heart disease. We will see the results of the stress test and decide if we should attempt [facility] cardiac catheterization. If we do so, his creatinine is quite elevated and the discussion will hernández ve to include the approach, we will not be able to do a femoral approach and also that his kidney fun ction is so bad, we should get a nephrology consult to see if that can be improved before we subject him to a cardiac cath and a large dye load that is very likely to worsen h is renal function. VISHNU/DAWIT Voice ID: [id number] Report ID: [id number]
[2018-09-12] MEDS ORDERED: ROSUVASTATIN 10 MG TAB PO SCH (21:00)
[2018-09-12] MEDS ORDERED: MELATONIN 5 MG TABLET PO SCH (21:00)
[2018-09-12] MEDS ORDERED: TRAZODONE 50 MG TABLET PO SCH (21:00)
[2018-09-12] MEDS ORDERED: TAMSULOSIN 0.4 MG SR CAP PO SCH (21:00)
== END 2018-09-12 15:50 | disposition home or self-care (01) ==
LOC: ER 22:40 → ERHOLD 23:13 → 4TH 09-12 00:04
PROVIDERS: ADMIT Hospitalist; ATTEND Family Medicine
DX: R07.9 Chest pain, unspecified (principal); R00.1 Bradycardia, unspecified; T44.7X5A Adverse effect of beta-adrenoreceptor antagonists, initial encounter; Y92.009 Unspecified place in unspecified non-institutional (private) residence as the place of occurrence of the external cause; N40.0 Benign prostatic hyperplasia without lower urinary tract symptoms; I10 Essential (primary) hypertension; I25.10 Atherosclerotic heart disease of native coronary artery without angina pectoris; F32.9 Major depressive disorder, single episode, unspecified; E78.5 Hyperlipidemia, unspecified; I73.9 Peripheral vascular disease, unspecified; F17.210 Nicotine dependence, cigarettes, uncomplicated
CPT/HCPCS: 96361; 93005; 93017; 93306; 85025 ×2; 80048 ×2; 36415 ×2; 83735; 85610; 80061; 80076; 84484 ×3; 83690; 83880; 71045; 78452; 96372; 96374; 99285; J1650 ×2; J2785; J7030; A9500; G0378 ×2

== ENCOUNTER 2019-05-10 09:50 | Emergency (ER) | payer OTHER ==
[2019-05-10] MEDS ORDERED: MORPHINE 4 MG/ML SYR ONE (10:13)
[2019-05-10] MEDS ORDERED: DIAZEPAM 10 MG/2 ML INJ SYRINGE ONE (10:13)
[2019-05-10] MEDS ORDERED: ONDANSETRON 4 MG/2 ML VIAL ONE (10:14)
[2019-05-10] MEDS ORDERED: NA CHLORIDE 0.9% 1,000 ML ONE (10:14)
[2019-05-10] MEDS ORDERED: METOPROLOL TARTRATE 5 MG/5 ML INJ IV ONE (10:15)
--- NOTE | 2019-05-10 10:43 | RAD REPORT ---
EXAM DESCRIPTION: RAD - Chest Single View - 05/10/2019 10:38 am CLINICAL HISTORY: CHEST PAIN Chest pain. COMPARISON: Chest Single View dated 09/11/2018; Abdomen 1 View (KUB) dated 07/28/2017; Abdomen 1 View (KUB) dated 11/03/2016; Abdomen 1 View (KUB) dated 08/06/2016 FINDINGS: Portable technique limits examination quality. Mild pulmonary edema is seen. The heart is moderately enlarged in size. No displaced fractures. IMPRESSION: Mild CHF versus volume overload pattern.
[2019-05-10 10:45] LABS: Absolute Lymphocytes (CBC) 1.1 K/uL (0.7-4.9); Basophils % 0.4 % (0-1.3); Hematocrit 41.4 % (39.6-49.0); Lymphocytes % 15.3 % (15.3-44.8); MPV 8.5 fL (7.6-11.3); RBC Red Blood Cell Count 4.57 M/uL (4.33-5.43)
[2019-05-10 10:49] LABS: Protime INR 1.12
--- NOTE | 2019-05-10 10:57 | ER ---
Nurse's Notes [facility] Name: Neftaly Varghese Age: 73 yrs Sex: Male : 1945 Arrival Date: 05/10/2019 Time: 09:51 Bed 4 Private MD: Alexander Davis Diagnosis: Tachyarrythmia;Atrial fibrillation and flutter;Sinus Bradycardia;wide complex ventricular tachycardia;Non-ST elevation (NSTEMI) myocardial infarction Presentation: 05/10 10:00 Acuity: DEVONTE 1 iw 10:00 Presenting complaint: Patient states: chest pain that felt like heart burn since iw Wednesday, yesterday felt SOb, worse today, +cough, no fever, feels faint, dizziness when standing. Transition of care: patient was not received from another setting of care. Onset of symptoms was May 09, 2019. 10:00 Method Of Arrival: Wheelchair iw 11:12 Risk Assessment: Do you want to hurt yourself or someone else? Patient reports no iw desire to harm self or others. Initial Sepsis Screen: Does the patient meet any 2 criteria? RR > 20 per min. HR > 90 bpm. Does the patient have a suspected source of infection? No. Patient's initial sepsis screen is negative. Care prior to arrival: None. Historical: - Allergies: 10:22 Codeine; iw - PMHx: 10:22 Hyperlipidemia; Myocardial infarction; Hypertension; TIA; iw - PSHx: 10:22 Heart stents; ankle sx; carotid stents; Kidney stents; iw - Immunization history:: Adult Immunizations unknown. - Ebola Screening: : Patient negative for fever greater than or equal to 101.5 degrees Fahrenheit, and additional compatible Ebola Virus Disease symptoms Patient denies exposure to infectious person Patient denies travel to an Ebola-affected area in the 21 days before illness onset No symptoms or risks identified at this time. - Social history:: Smoking status: unknown. Screenin:00 Abuse screen: Denies threats or abuse. Denies injuries from another. Nutritional jl7 screening: No deficits noted. Tuberculosis screening: No symptoms or risk factors identified. Fall Risk IV access (20 points). Total Lr Fall Scale indicates No Risk (0-24 pts). Assessment: 10:10 General: Appears distressed, uncomfortable, Behavior is cooperative, anxious. Pain: jl7 Complains of pain in chest Pain currently is 8 out of 10 on a pain scale. Pain began 2-3 days ago. Is continuous. Neuro: Level of Consciousness is awake, alert, obeys commands, Oriented to person, place, time, situation. Cardiovascular: Rhythm is ventricular tachycardia. Respiratory: Airway is patent Respiratory effort is even, labored, Respiratory pattern is symmetrical, tachypnea Breath sounds are clear bilaterally. Derm: Skin is pink, warm \T\ dry. 11:00 Reassessment: Patient appears in no apparent distress at this time. Patient and/or jl7 family updated on plan of care and expected duration. Pain level reassessed. Patient is alert, oriented x 3, equal unlabored respirations, skin warm/dry/pink. Patient states feeling better. Patient states symptoms have improved. 12:00 Reassessment: Patient appears in no apparent distress at this time. No changes from jl7 previously documented assessment. Patient and/or family updated on plan of care and expected duration. Pain level reassessed. Patient is alert, oriented x 3, equal unlabored respirations, skin warm/dry/pink. Patient denies pain at this time. 13:00 Reassessment: Patient appears in no apparent distress at this time. Patient and/or jl7 family updated on plan of care and expected duration. Pain level reassessed. Patient is alert, oriented x 3, equal unlabored respirations, skin warm/dry/pink. 14:00 Reassessment: Patient appears in no apparent distress at this time. Patient and/or jl7 family updated on plan of care and expected duration. Pain level reassessed. Patient is alert, oriented x 3, equal unlabored respirations, skin warm/dry/pink. 15:00 Reassessment: Patient appears in no apparent distress at this time. Patient and/or jl7 family updated on plan of care and expected duration. Pain level reassessed. Patient is alert, oriented x 3, equal unlabored respirations, skin warm/dry/pink. 17:00 Reassessment: Patient appears in no apparent distress at this time. No changes from jl7 previously documented assessment. Patient and/or family updated on plan of care and expected duration. Pain level reassessed. Patient is alert, oriented x 3, equal unlabored respirations, skin warm/dry/pink. 19:00 Reassessment: EMS at bedside to transport pt. jl7 Vital Signs: 10:05 BP 92 / 64; Pulse 179; Resp 22 S; Temp 97.7; Pulse Ox 96% ; iw 10:15 BP 117 / 70; Pulse 61; Resp 19; Pulse Ox 90% on R/A; jl7 10:40 BP 123 / 70; Pulse 48; Resp 19 S; Pulse Ox 97% on 4 lpm NC; jl7 11:30 BP 110 / 75; Pulse 46; Resp 17; Pulse Ox 93% on 3 lpm NC; jl7 12:34 BP 118 / 75; Pulse 44; Resp 16 S; Pulse Ox 98% on 3 lpm NC; Weight 81.65 kg (R); jl7 13:00 BP 120 / 68; Pulse 50; Resp 18 S; Pulse Ox 95% on 3 lpm NC; Pain 0/10; jl7 13:30 BP 120 / 67; Pulse 49; Resp 17 S; Pulse Ox 93% on 2 lpm NC; jl7 14:00 BP 119 / 79; Pulse 51; Resp 16 S; Pulse Ox 92% on 3 lpm NC; jl7 15:00 BP 119 / 81; Pulse 50; Resp 16 S; Pulse Ox 97% on 2 lpm NC; Pain 0/10; jl7 16:00 BP 121 / 75; Pulse 51; Resp 17 S; Pulse Ox 96% on 2 lpm NC; jl7 17:00 BP 120 / 74; Pulse 49; Resp 17 S; Pulse Ox 97% on 2 lpm NC; jl7 18:00 BP 117 / 75; Pulse 50; Resp 17 S; Pulse Ox 96% on 2 lpm NC; jl7 19:00 BP 116 / 80; Pulse 47; Resp 19 S; Pulse Ox 97% on 2 lpm NC; jl7 ED Course: 09:51 Patient arrived in ED. mr 09:51 Alexander Davis MD is Private Physician. mr 10:00 Patient has correct armband on for positive identification. Placed in gown. Bed in low jl7 position. Call light in reach. Side rails up X 1. sausage linker on. Pulse ox on. NIBP on. Warm blanket given. 10:00 Initial lab(s) drawn, by me, sent to lab. Inserted saline lock: 20 gauge in left jl7 antecubital area, using aseptic technique. Blood collected. Inserted saline lock: 20 gauge in right antecubital area, using aseptic technique. 10:09 Navin Cui NP is PHCP. pm1 10:10 Umair Rosenbaum MD is Attending Physician. pm1 10:15 Arm band placed on right wrist. jl7 10:16 Triage completed. iw 10:24 Antonio Soni, YEIMI is Primary Nurse. jl7 10:38 XRAY Chest (1 view) In Process Unspecified. EDMS 10:54 Los Jasmine MD is Hospitalizing Provider. kdr 11:37 Cristiano Barksdale is Hospitalizing Provider. kdr 14:00 transfer transportation to receiving facility. jl7 15:24 Assisted with urinal. jl7 19:15 No provider procedures requiring assistance completed. Patient transferred, IV remains jl7 in place. intact, No redness/swelling at site. Administered Medications: 10:12 Drug: morphine 4 mg Route: IVP; Site: left antecubital; jl7 10:57 Follow up: Response: No adverse reaction jl7 10:12 Drug: Zofran 4 mg Route: IVP; Site: left antecubital; jl7 10:57 Follow up: Response: No adverse reaction jl7 10:12 Drug: NS 0.9% 1000 ml Route: IV; Rate: 1 bolus; Site: left antecubital; jl7 10:58 Follow up: Response: No adverse reaction; IV Status: Completed infusion; IV Intake: jl7 1000ml 10:13 Drug: Lopressor 2.5 mg Route: IVP; Site: left antecubital; jl7 10:15 Follow up: Response: No adverse reaction; Marked relief of symptoms; Cardiac rhythm jl7 changed 10:14 Drug: Valium 2.5 mg Route: IVP; Site: left antecubital; jl7 10:57 Follow up: Response: No adverse reaction jl7 12:43 Drug: Lovenox 1 mg/kg Route: Sub-Q; Site: right lower abdomen; jl7 12:55 Follow up: Response: No adverse reaction jl7 12:55 Not Given (Hemodynamic Parameters): Metoprolol 2.5 mg IVP once jl7 12:55 Not Given (Hemodynamic Parameters): Metoprolol 25 mg PO once jl7 Intake: 10:58 IV: 1000ml; Total: 1000ml. jl7 Outcome: 10:56 Decision to Hospitalize by Provider. kdr 15:10 ER care complete, transfer ordered by . kdr 19:15 [place] by [place] [facility] [facility] [place]. jl7 X-rays sent w/ patient. 19:15 Condition: stable 19:15 Condition: stable 19:15 Discharge instructions given to patient, family, Instructed on the need for transfer, Demonstrated understanding of instructions. 19:20 Patient left the ED. jl7 Signatures: Dispatcher [employer] EDMS Umair Rosenbaum MD MD [facility] Serrano, Cathi mr Елена Cunningham, RN RN iw Navin Cui, [employer] OFFICER pm1 Antonio Soni RN RN jl7 Corrections: (The following items were deleted from the chart) 11:13 10:00 Presenting complaint: Patient states: chest pain that felt like heart burn since iw Wednesday, yesterday felt SOb, worse today, +cough, no fever, feels ritu, dizziness when standing iw
--- NOTE | 2019-05-10 10:58 | EDPHYS ---
Physician Documentation [facility] Name: Neftaly Varghese Age: 73 yrs Sex: Male : 1945 Arrival Date: 05/10/2019 Time: 09:51 Bed 4 Private MD: Alexander Davis ED Physician Umair Rosenbaum HPI: 05/10 10:46 This 73 yrs old Male presents to ER via Wheelchair with complaints of kdr Breathing Difficulty, Cough. 10:47 Since Wednesday, the patient has felt like he had heartburn/dyspepsia which has been kdr intermittent but persistent. Yesterday, he began to feel SOB and worse today. Generally feels poorly.. Onset: The symptoms/episode began/occurred last Wednesday. Severity of symptoms: At their worst the symptoms were moderate just prior to arrival, in the emergency department the symptoms are unchanged. The patient has not experienced similar symptoms in the past. The patient has not recently seen a physician. Historical: - Allergies: 10:22 Codeine; iw - PMHx: 10:22 Hyperlipidemia; Myocardial infarction; Hypertension; TIA; iw - PSHx: 10:22 Heart stents; ankle sx; carotid stents; Kidney stents; iw - Immunization history:: Adult Immunizations unknown. - Ebola Screening: : Patient negative for fever greater than or equal to 101.5 degrees Fahrenheit, and additional compatible Ebola Virus Disease symptoms Patient denies exposure to infectious person Patient denies travel to an Ebola-affected area in the 21 days before illness onset No symptoms or risks identified at this time. - Social history:: Smoking status: unknown. ROS: 10:47 Constitutional: Negative for fever, chills, and weight loss, Eyes: Negative for injury, kdr pain, redness, and discharge, ENT: Negative for injury, pain, and discharge, Neck: Negative for injury, pain, and swelling, Back: Negative for injury and pain, : Negative for injury, bleeding, discharge, and swelling, MS/Extremity: Negative for injury and deformity, Skin: Negative for injury, rash, and discoloration, Neuro: Negative for headache, weakness, numbness, tingling, and seizure activity. Psych: Negative for depression, anxiety, suicide ideation, homicidal ideation, and hallucinations, Allergy/Immunology: Negative for hives, rash, and allergies, Endocrine: Negative for neck swelling, polydipsia, polyuria, polyphagia, and marked weight changes, Hematologic/Lymphatic: Negative for swollen nodes, abnormal bleeding, and unusual bruising. 10:47 Cardiovascular: Positive for chest pain, Negative for edema, orthopnea, palpitations, paroxysmal nocturnal dyspnea. 10:47 Respiratory: Positive for shortness of breath, at rest. 10:47 Abdomen/GI: Positive for nausea, Dyspepsia. Exam: 10:47 Constitutional: This is a well developed, well nourished patient who is awake, alert, kdr and in no acute distress. Head/Face: Normocephalic, atraumatic. Eyes: Pupils equal round and reactive to light, extra-ocular motions intact. Lids and lashes normal. Conjunctiva and sclera are non-icteric and not injected. Cornea within normal limits. Periorbital areas with no swelling, redness, or edema. Neck: Trachea midline, no thyromegaly or masses palpated, and no cervical lymphadenopathy. Supple, full range of motion without nuchal rigidity, or vertebral point tenderness. No Meningismus. Chest/axilla: Normal chest wall appearance and motion. Nontender with no deformity. No lesions are appreciated. Respiratory: Lungs have equal breath sounds bilaterally, clear to auscultation and percussion. No rales, rhonchi or wheezes noted. No increased work of breathing, no retractions or nasal flaring. Back: No spinal tenderness. No costovertebral tenderness. Full range of motion. Skin: Warm, dry with normal turgor. Normal color with no rashes, no lesions, and no evidence of cellulitis. MS/ Extremity: Pulses equal, no cyanosis. Neurovascular intact. Full, normal range of motion. Neuro: Awake and alert, GCS 15, oriented to person, place, time, and situation. Cranial nerves II-XII grossly intact. Motor strength 5/5 in all extremities. Sensory grossly intact. Cerebellar exam normal. Normal gait. Psych: Awake, alert, with orientation to person, place and time. Behavior, mood, and affect are within normal limits. 10:47 Cardiovascular: Rate: tachycardic, Rhythm: irregularly irregular, The patient is alternating between A-fib SVR and RVR, Pulses: no pulse deficits are appreciated, Heart sounds: normal, Edema: is not appreciated. 10:47 Respiratory: the patient does not display signs of respiratory distress, Respirations: normal, Breath sounds: are clear throughout. Vital Signs: 10:05 BP 92 / 64; Pulse 179; Resp 22 S; Temp 97.7; Pulse Ox 96% ; iw 10:15 BP 117 / 70; Pulse 61; Resp 19; Pulse Ox 90% on R/A; jl7 10:40 BP 123 / 70; Pulse 48; Resp 19 S; Pulse Ox 97% on 4 lpm NC; jl7 11:30 BP 110 / 75; Pulse 46; Resp 17; Pulse Ox 93% on 3 lpm NC; jl7 12:34 BP 118 / 75; Pulse 44; Resp 16 S; Pulse Ox 98% on 3 lpm NC; Weight 81.65 kg (R); jl7 13:00 BP 120 / 68; Pulse 50; Resp 18 S; Pulse Ox 95% on 3 lpm NC; Pain 0/10; jl7 13:30 BP 120 / 67; Pulse 49; Resp 17 S; Pulse Ox 93% on 2 lpm NC; jl7 14:00 BP 119 / 79; Pulse 51; Resp 16 S; Pulse Ox 92% on 3 lpm NC; jl7 15:00 BP 119 / 81; Pulse 50; Resp 16 S; Pulse Ox 97% on 2 lpm NC; Pain 0/10; jl7 16:00 BP 121 / 75; Pulse 51; Resp 17 S; Pulse Ox 96% on 2 lpm NC; jl7 17:00 BP 120 / 74; Pulse 49; Resp 17 S; Pulse Ox 97% on 2 lpm NC; jl7 18:00 BP 117 / 75; Pulse 50; Resp 17 S; Pulse Ox 96% on 2 lpm NC; jl7 19:00 BP 116 / 80; Pulse 47; Resp 19 S; Pulse Ox 97% on 2 lpm NC; jl7 MDM: 10:27 Data reviewed: vital signs, nurses notes. ED course: THE PATIENT WAS SEEN BY ME UPON kdr ARRIVAL AND PLACED IN ED BED 4. 10:56 Patient medically screened. kdr 05/10 10:22 Order name: Basic Metabolic Panel; Complete Time: 11:56 iw 05/10 10:22 Order name: CBC with Diff; Complete Time: 11:56 iw 05/10 10:22 Order name: LFT's; Complete Time: 11:56 iw 05/10 10:22 Order name: Magnesium; Complete Time: 11:56 05/10 10:22 Order name: NT PRO-BNP; Complete Time: 11:56 05/10 10:22 Order name: PT-INR; Complete Time: 11:56 05/10 10:22 Order name: Troponin (emerg Dept Use Only); Complete Time: 11:56 05/10 10:22 Order name: XRAY Chest (1 view); Complete Time: 10:46 05/10 10:22 Order name: EKG; Complete Time: 10:24 05/10 10:22 Order name: Cardiac monitoring; Complete Time: 10:24 05/10 10:22 Order name: EKG - Nurse/Tech; Complete Time: 10:24 05/10 10:22 Order name: IV Saline Lock; Complete Time: 10:24 05/10 10:22 Order name: Labs collected and sent; Complete Time: 10:24 05/10 10:22 Order name: O2 Per Protocol; Complete Time: 10:24 05/10 10:22 Order name: O2 Sat Monitoring; Complete Time: 10:24 Administered Medications: 10:12 Drug: morphine 4 mg Route: IVP; Site: left antecubital; jl7 10:57 Follow up: Response: No adverse reaction jl7 10:12 Drug: Zofran 4 mg Route: IVP; Site: left antecubital; jl7 10:57 Follow up: Response: No adverse reaction jl7 10:12 Drug: NS 0.9% 1000 ml Route: IV; Rate: 1 bolus; Site: left antecubital; jl7 10:58 Follow up: Response: No adverse reaction; IV Status: Completed infusion; IV Intake: jl7 1000ml 10:13 Drug: Lopressor 2.5 mg Route: IVP; Site: left antecubital; jl7 10:15 Follow up: Response: No adverse reaction; Marked relief of symptoms; Cardiac rhythm jl7 changed 10:14 Drug: Valium 2.5 mg Route: IVP; Site: left antecubital; jl7 10:57 Follow up: Response: No adverse reaction jl7 12:43 Drug: Lovenox 1 mg/kg Route: Sub-Q; Site: right lower abdomen; jl7 12:55 Follow up: Response: No adverse reaction jl7 12:55 Not Given (Hemodynamic Parameters): Metoprolol 2.5 mg IVP once jl7 12:55 Not Given (Hemodynamic Parameters): Metoprolol 25 mg PO once jl7 Disposition: 05/10/19 15:10 Transfer ordered to [facility]. Diagnosis are Tachyarrythmia, Atrial fibrillation and flutter, Sinus Bradycardia, wide complex ventricular tachycardia, Non-ST elevation (NSTEMI) myocardial infarction. - Reason for transfer: Higher level of care. - Accepting physician is Dietrich. - Condition is Serious. - Problem is new. - Symptoms have improved. Signatures: Dispatcher [employer] EDMS Umair Rosenbaum MD MD kdr Елена Cunningham RN RN iw Antonio Soni RN RN jl7 Corrections: (The following items were deleted from the chart) 11:37 10:56 Hospitalization Ordered by Los Jasmine MD for Inpatient Admission. Preliminary kdr diagnosis is Atrial fibrillation and flutter - With SVR/RVR. Bed requested for Telemetry/MedSurg (observation). Status is Inpatient Admission. Condition is Stable. Problem is new. Symptoms have improved. UTI on Admission? No. kdr 15:07 11:37 05/10/2019 10:56 Hospitalization Ordered by Cristiano Barksdale for Inpatient kdr Admission. Preliminary diagnosis is Atrial fibrillation and flutter - With SVR/RVR. Bed requested for Telemetry/MedSurg (observation). Status is Inpatient Admission. Condition is Stable. Problem is new. Symptoms have improved. UTI on Admission? No. kdr 19:20 15:10 05/10/2019 15:10 Transfer ordered to [facility]. Diagnosis is jl7 Tachyarrythmia; Atrial fibrillation and flutter; Sinus Bradycardia; wide complex ventricular tachycardia; Non-ST elevation (NSTEMI) myocardial infarction. Reason for transfer: Higher level of care. Accepting physician is Dietrich. Condition is Serious. Problem is new. Symptoms have improved. kdr
[2019-05-10 11:21] LABS: Albumin 3.7 g/dL (3.4-5.0); Bilirubin Direct 0.2 mg/dL (0-0.2); Bilirubin Total 0.8 mg/dL (0.2-1.0); Magnesium 2.3 mg/dL (1.8-2.4); Potassium 4.5 mmol/L (3.5-5.1); Protein, Total 7.7 g/dL (6.4-8.2)
[2019-05-10 11:23] LABS: Troponin (Emerg Dept Use Only) 0.75 ng/mL (0.0-0.045)
[2019-05-10] MEDS ORDERED: ENOXAPARIN 80 MG/0.8 ML SQ ONE (12:41)
[2019-05-10 20:08] VITALS: TEMP 97.7
[2019-05-10 20:18] VITALS: BP 119/79; O2SAT 92
--- NOTE | 2019-05-11 08:10 | EKG ---
Test Date: 2019-05-10 Test Time: 10:05:03 Argon Tester: IONA MEASUREMENT RESULTS: Intervals: Rate: 139 MN: QRSD: 108 QT: 358 QTc: 544 [place]: P: MN: QRS: 81 T: -88 INTERPRETIVE STATEMENTS: VT ST & T wave abnormality, consider inferior ischemia Abnormal ECG Compared to ECG 09/11/2018 22:48:38 ST (T wave) deviation now present Possible ischemia now present Sinus bradycardia no longer present Electronically Signed On 05-11-19 08:10:03 ADVERTISING COORDINATOR by John Garber
--- NOTE | 2019-05-11 11:59 | EKG ---
Test Date: 2019-05-10 Test Time: 10:19:01 Grout Machine Operator: IONA MEASUREMENT RESULTS: Intervals: Rate: 56 ME: QRSD: 116 QT: 480 QTc: 463 [place]: P: ME: QRS: 73 T: -47 INTERPRETIVE STATEMENTS: sinus elbert Incomplete left bundle branch block Nonspecific ST and T wave abnormality Prolonged QT Abnormal ECG Compared to ECG 05/10/2019 10:05:03 Prolonged QT interval now present Possible ischemia no longer present ST (T wave) deviation still present Electronically Signed On 05-11-19 11:57:53 DELICATESSEN DEPARTMENT MANAGER by John Garber
--- NOTE | 2019-05-11 15:07 | CON ---
Date of Consultation: 05/10/2019 Patient was seen in the emergency room. Patient was admitted and seen on 05/10/2019. History Of Present Illness: Mr. Varghese is a 73-year-old white male. He is very well known to me fr om previous office visits and admission. He has a very complicated past cardiac history, medical his tory in general. He came in with mid-epigastric chest pain, abnormal troponin and ventricular tachyc ardia that has resolved spontaneously after IV beta blockers. Patient continues to have some mild mi d-epigastric discomfort. Symptoms have been going on and off for about 2, 3 days. He denied any syn cope. Has had some nausea and diaphoresis, but no vomiting. Complained of shortness of breath with exertion. Past Medical History: Coronary artery disease status post stent, renal artery stenosis status post s tent, carotid stenosis status post stent, TIA, hypertension, dyslipidemia, and tobacco use. Allergies: HE IS ALLERGIC TO CODEINE AND FENTANYL. Review of Systems: Negative. Social History: Positive for tobacco. Family History: Positive for heart disease. Home Medications: Norvasc, Crestor, aspirin, Plavix, Zetia, Toprol, lisinopril, and Flomax. Physical Examination: General: He appeared to be in mild distress from chest pain. Vital Signs: He was diaphoretic, anxious, but vital signs were stable. Afebrile. He was in sinus r hythm when I saw him. HEENT: Negative. Neck: Supple without any lymphadenopathy, JVD, or thyromegaly. He had a right carotid bruit. Chest: Clear. Cardiac: Revealed a regular rhythm and rate. No murmurs, gallops, or rubs. Abdomen: Benign. Extremities: Revealed no clubbing, cyanosis, or edema. Diagnostic Data: Creatinine is 2.38. Troponin is 0.75. BNP was 12,484. He had a normal echo and Lexiscan in August of 2018. Chest x-ray showed mild failure. EKG showed ventricular tachycardia. Impression And Plan: Patient with history of coronary artery disease status post stent. Diffuse vas cular disease in the carotid, renal, aorta, iliacs and coronaries. He has positive troponin. He has ventricular tachycardia. He is still have chest pain. I think Mr. Varghese is rather too complex fo r him to stay here and have any intervention, especially on . I prefer much that he goes to [place] for further therapy and evaluation, catheterizations. He needs to be treated with Mucomyst because of his renal dysfunction, but he needs to have the catheterization done soon. The last time, he had a catheterization, we had a difficult access from the right groin. He should have probably a left groin access or radial approach. He has diffuse atherosclerosis in the aorta with a small aneu rysm. He has a right renal stent. He has a left renal artery stenosis that is very difficult to angélica nt. His blood pressure has been controlled and has been left alone. He has a history of carotid angélica nt, transient ischemic attack, hypertension, and dyslipidemia. Continues to smoke. The case was discussed with his family and Dr. Rosenbaum. We will transfer the patient to [place] as s oon as possible. GIO/DAWIT Voice ID: [id number] Report ID: [id number]
== END 2019-05-10 19:20 | disposition short-term general hospital (02) ==
LOC: ER 09:50
DX: I21.4 Non-ST elevation (NSTEMI) myocardial infarction (principal); I48.91 Unspecified atrial fibrillation; I48.92 Unspecified atrial flutter; R00.1 Bradycardia, unspecified; I47.2 Ventricular tachycardia; Z88.6 Allergy status to analgesic agent; Z95.5 Presence of coronary angioplasty implant and graft
CPT/HCPCS: 96361; 93005 ×2; 85025; 80048; 36415; 83735; 85610; 80076; 84484; 83880; 71045; 96375; 96372; 96374; 99291; 99292; J3360; J1650; J7030; J2405

== ENCOUNTER 2019-05-20 19:22 | Inpatient (IN) | payer OTHER ==
--- OUTSIDE RECORDS SUMMARY | 2019-05-20 19:25 | XMS REPORT ---
:1945 Author Organization [facility] Address [address] [place] [address] Dr. Dominguez [address] [place] [id number] Care Team Providers Name Role Phone ANNMARIE PETER Unavailable Unavailable Problems This patient has no known problems. Allergies, Adverse Reactions, Alerts This patient has no known allergies or adverse reactions. Medications This patient has no known medications. Results Test Description Test Time Test Comments Text Results Atomic Results Result Comments CBC (HEMOGRAM ONLY) 2019-05-14 04:11:00 Test Item Value Reference Range Comments WHITE BLOOD CELL COUNT (BEAKER) (test eaop=802) 5.4 K/ L 3.5-10.5 RED BLOOD CELL COUNT (BEAKER) (test wsis=759) 4.72 M/ L 4.63-6.08 HEMOGLOBIN (BEAKER) (test yowq=669) 13.9 GM/DL 13.7-17.5 HEMATOCRIT (BEAKER) (test zbmv=379) 41.7 % 40.1-51.0 MEAN CORPUSCULAR VOLUME (BEAKER) (test tfoc=251) 88.3 fL 79.0-92.2 MEAN CORPUSCULAR HEMOGLOBIN (BEAKER) (test bnsw=547) 29.4 pg 25.7-32.2 MEAN CORPUSCULAR HEMOGLOBIN CONC (BEAKER) (test mrbq=386) 33.3 GM/DL 32.3- 36.5 RED CELL DISTRIBUTION WIDTH (BEAKER) (test jkjm=138) 13.7 % 11.6-14.4 PLATELET COUNT (BEAKER) (test yrzf=768) 252 K/CU MM 150-450 MEAN PLATELET VOLUME (BEAKER) (test uthb=547) 9.9 fL 9.4-12.4 NUCLEATED RED BLOOD CELLS (BEAKER) (test tehi=135) 0 /100 WBC 0-0 [id number] 06:10:00 Test Item Value Reference Range Comments MAGNESIUM (BEAKER) (test mzxy=688) 2.0 mg/dL 1.6-2.6 BASIC METABOLIC [id number] 06:10:00 Test Item Value Reference Range Comments SODIUM (BEAKER) (test 134 meq/L 136-145 ompi=916) POTASSIUM (BEAKER) (test 4.4 meq/L 3.5-5.1 znmm=387) CHLORIDE (BEAKER) (test 107 meq/L 98-107 fioz=043) CO2 (BEAKER) (test 19 meq/L 22-29 iqeu=788) BLOOD UREA NITROGEN 27 mg/dL 7-21 (BEAKER) (test ikgc=942) CREATININE (BEAKER) (test 1.94 mg/dL 0.57-1.25 uzrm=345) GLUCOSE RANDOM (BEAKER) 94 mg/dL 70-105 (test twiq=347) CALCIUM (BEAKER) (test 9.2 mg/dL 8.4-10.2 esri=218) EGFR (BEAKER) (test 34 mL/min/1.73 sq m ESTIMATED GFR IS NOT xjqq=9382) ACCURATE CREATININE CLEARANCE IN PREDICTING GLOMERULAR FILTRATION RATE. ESTIMATED GFR IS NOT APPLICABLE FOR DIALYSIS PATIENTS. CBC (HEMOGRAM ONLY)2019-05-13 05:22:00 Test Item Value Reference Range Comments WHITE BLOOD CELL COUNT (BEAKER) (test kods=348) 5.2 K/ L 3.5-10.5 RED BLOOD CELL COUNT (BEAKER) (test ickd=282) 4.72 M/ L 4.63-6.08 HEMOGLOBIN (BEAKER) (test twmz=390) 13.7 GM/DL 13.7-17.5 HEMATOCRIT (BEAKER) (test iuec=527) 41.7 % 40.1-51.0 MEAN CORPUSCULAR VOLUME (BEAKER) (test mdek=383) 88.3 fL 79.0-92.2 MEAN CORPUSCULAR HEMOGLOBIN (BEAKER) (test 29.0 pg 25.7-32.2 uhxu=799) MEAN CORPUSCULAR HEMOGLOBIN CONC (BEAKER) (test 32.9 GM/DL 32.3-36.5 wsrg=603) RED CELL DISTRIBUTION WIDTH (BEAKER) (test 13.7 % 11.6-14.4 bpbh=984) PLATELET COUNT (BEAKER) (test zrea=848) 239 K/CU MM 150-450 MEAN PLATELET VOLUME (BEAKER) (test fxbt=179) 9.7 fL 9.4-12.4 NUCLEATED RED BLOOD CELLS (BEAKER) (test 0 /100 WBC 0-0 hnka=894) [id number] 12:42:00 Test Item Value Reference Range Comments PARTIAL THROMBOPLASTIN TIME (BEAKER) (test 82.0 seconds 22.5-36.0 hdbv=431) [id number] 05:57:00 Test Item Value Reference Range Comments MAGNESIUM (BEAKER) (test oman=738) 2.2 mg/dL 1.6-2.6 BASIC METABOLIC [id number] 05:57:00 Test Item Value Reference Range Comments SODIUM (BEAKER) (test 136 meq/L 136-145 fsct=708) POTASSIUM (BEAKER) (test 4.4 meq/L 3.5-5.1 lapi=579) CHLORIDE (BEAKER) (test 106 meq/L 98-107 pise=809) CO2 (BEAKER) (test 20 meq/L 22-29 vclb=490) BLOOD UREA NITROGEN 30 mg/dL 7-21 (BEAKER) (test lumr=723) CREATININE (BEAKER) (test 2.13 mg/dL 0.57-1.25 iphb=686) GLUCOSE RANDOM (BEAKER) 100 mg/dL 70-105 (test oigq=043) CALCIUM (BEAKER) (test 8.9 mg/dL 8.4-10.2 yupk=782) EGFR (BEAKER) (test 31 mL/min/1.73 sq m ESTIMATED GFR IS NOT fcwr=8351) ACCURATE CREATININE CLEARANCE IN PREDICTING GLOMERULAR FILTRATION RATE. ESTIMATED GFR IS NOT APPLICABLE FOR DIALYSIS PATIENTS. [id number] 05:48:00 Test Item Value Reference Range Comments PARTIAL THROMBOPLASTIN TIME (BEAKER) (test 97.6 seconds 22.5-36.0 dkjt=365) CBC (HEMOGRAM ONLY)2019-05-12 05:37:00 Test Item Value Reference Range Comments WHITE BLOOD CELL COUNT (BEAKER) (test vooo=736) 5.6 K/ L 3.5-10.5 RED BLOOD CELL COUNT (BEAKER) (test eyon=217) 4.46 M/ L 4.63-6.08 HEMOGLOBIN (BEAKER) (test zord=203) 13.0 GM/DL 13.7-17.5 HEMATOCRIT (BEAKER) (test zqud=249) 40.0 % 40.1-51.0 MEAN CORPUSCULAR VOLUME (BEAKER) (test tdnc=586) 89.7 fL 79.0-92.2 MEAN CORPUSCULAR HEMOGLOBIN (BEAKER) (test 29.1 pg 25.7-32.2 ovzo=022) MEAN CORPUSCULAR HEMOGLOBIN CONC (BEAKER) (test 32.5 GM/DL 32.3-36.5 dtek=599) RED CELL DISTRIBUTION WIDTH (BEAKER) (test 13.9 % 11.6-14.4 yxkz=051) PLATELET COUNT (BEAKER) (test erpi=700) 246 K/CU MM 150-450 MEAN PLATELET VOLUME (BEAKER) (test yxid=477) 9.9 fL 9.4-12.4 NUCLEATED RED BLOOD CELLS (BEAKER) (test 0 /100 WBC 0-0 ornl=848) [id number] 21:34:00 Test Item Value Reference Range Comments PARTIAL THROMBOPLASTIN TIME (BEAKER) (test 54.7 seconds 22.5-36.0 kpbb=829) [id number] 12:22:00 Test Item Value Reference Range Comments PARTIAL THROMBOPLASTIN TIME (BEAKER) (test 62.7 seconds 22.5-36.0 rvrp=652) TROPONIN [id number] 09:48:00 Test Item Value Reference Range Comments TROPONIN I (BEAKER) (test ehth=732) 0.79 ng/mL 0.00-0.03 Troponin I (TnI) levels must be interpreted in the context of the presenting symptoms and the clinical findings. Elevated TnI levels indicate myocardial damage, but are not specific for ischemic heart disease. Elevated TnI levels are seen in patients with other cardiac conditions (including myocarditis and congestive heart failure), and slight TnI elevations occur in patients with other conditions, including sepsis, renal failure, acidosis, acute neurological disease, and persistent tachyarrhythmia.TROPONIN [id number] 05:58:00 Test Item Value Reference Range Comments TROPONIN I (BEAKER) (test ytho=173) 0.88 ng/mL 0.00-0.03 Troponin I (TnI) levels must be interpreted in the context of the presenting symptoms and the clinical findings. Elevated TnI levels indicate myocardial damage, but are not specific for ischemic heart disease. Elevated TnI levels are seen in patients with other cardiac conditions (including myocarditis and congestive heart failure), and slight TnI elevations occur in patients with other conditions, including sepsis, renal failure, acidosis, acute neurological disease, and persistent tachyarrhythmia.BASIC METABOLIC [id number] 05:57:00 Test Item Value Reference Range Comments SODIUM (BEAKER) (test 138 meq/L 136-145 vfml=975) POTASSIUM (BEAKER) (test 4.6 meq/L 3.5-5.1 Specimen slightly hjgc=707) hemolyzed CHLORIDE (BEAKER) (test 106 meq/L 98-107 ffgp=275) CO2 (BEAKER) (test 21 meq/L 22-29 vxit=733) BLOOD UREA NITROGEN 34 mg/dL 7-21 (BEAKER) (test hwvb=621) CREATININE (BEAKER) (test 2.55 mg/dL 0.57-1.25 Specimen slightly nyvu=660) hemolyzed GLUCOSE RANDOM (BEAKER) 99 mg/dL 70-105 (test wygy=037) CALCIUM (BEAKER) (test 8.7 mg/dL 8.4-10.2 rurb=067) EGFR (BEAKER) (test 25 mL/min/1.73 sq m ESTIMATED GFR IS NOT uzks=9610) ACCURATE CREATININE CLEARANCE IN PREDICTING GLOMERULAR FILTRATION RATE. ESTIMATED GFR IS NOT APPLICABLE FOR DIALYSIS PATIENTS. [id number] 05:51:00 Test Item Value Reference Range Comments MAGNESIUM (BEAKER) (test 2.7 mg/dL 1.6-2.6 Specimen slightly hemolyzed wfet=738) [id number] 05:43:00 Test Item Value Reference Range Comments PARTIAL THROMBOPLASTIN TIME (BEAKER) (test 95.4 seconds 22.5-36.0 ujwk=286) CBC (HEMOGRAM ONLY)2019-05-11 05:28:00 Test Item Value Reference Range Comments WHITE BLOOD CELL COUNT (BEAKER) (test zrfd=280) 5.1 K/ L 3.5-10.5 RED BLOOD CELL COUNT (BEAKER) (test kbkw=685) 4.14 M/ L 4.63-6.08 HEMOGLOBIN (BEAKER) (test fpqg=821) 12.2 GM/DL 13.7-17.5 HEMATOCRIT (BEAKER) (test jstz=841) 37.7 % 40.1-51.0 MEAN CORPUSCULAR VOLUME (BEAKER) (test rfpc=979) 91.1 fL 79.0-92.2 MEAN CORPUSCULAR HEMOGLOBIN (BEAKER) (test 29.5 pg 25.7-32.2 igkh=266) MEAN CORPUSCULAR HEMOGLOBIN CONC (BEAKER) (test 32.4 GM/DL 32.3-36.5 ysum=447) RED CELL DISTRIBUTION WIDTH (BEAKER) (test 14.2 % 11.6-14.4 owfw=039) PLATELET COUNT (BEAKER) (test gymd=223) 227 K/CU MM 150-450 MEAN PLATELET VOLUME (BEAKER) (test kdty=342) 10.0 fL 9.4-12.4 NUCLEATED RED BLOOD CELLS (BEAKER) (test 0 /100 WBC 0-0 phdi=209) TROPONIN [id number] 21:33:00 Test Item Value Reference Range Comments TROPONIN I (BEAKER) (test hcop=125) 0.81 ng/mL 0.00-0.03 Troponin I (TnI) levels must be interpreted in the context of the presenting symptoms and the clinical findings. Elevated TnI levels indicate myocardial damage, but are not specific for ischemic heart disease. Elevated TnI levels are seen in patients with other cardiac conditions (including myocarditis and congestive heart failure), and slight TnI elevations occur in patients with other conditions, including sepsis, renal failure, acidosis, acute neurological disease, and persistent tachyarrhythmia.B-TYPE NATRIURETIC FACTOR (BNP) 21:27:00 Test Item Value Reference Range Comments B-TYPE NATRIURETIC PEPTIDE (BEAKER) (test 1922 pg/mL 0-100 vmas=665) [id number] 21:21:00 Test Item Value Reference Range Comments MAGNESIUM (BEAKER) (test wggr=368) 2.0 mg/dL 1.6-2.6 CREATINE KINASE (CK)2019-05-10 21:21:00 Test Item Value Reference Range Comments CREATINE KINASE TOTAL (BEAKER) (test hdbe=266) 58 U/L 29-200 BASIC METABOLIC [id number] 21:21:00 Test Item Value Reference Range Comments SODIUM (BEAKER) (test 136 meq/L 136-145 laxb=456) POTASSIUM (BEAKER) (test 4.5 meq/L 3.5-5.1 laln=331) CHLORIDE (BEAKER) (test 109 meq/L 98-107 wgiw=443) CO2 (BEAKER) (test 18 meq/L 22-29 rtnn=383) BLOOD UREA NITROGEN 30 mg/dL 7-21 (BEAKER) (test tgcg=825) CREATININE (BEAKER) (test 2.28 mg/dL 0.57-1.25 hbai=714) GLUCOSE RANDOM (BEAKER) 115 mg/dL 70-105 (test hycr=441) CALCIUM (BEAKER) (test 8.9 mg/dL 8.4-10.2 mkoq=839) EGFR (BEAKER) (test 28 mL/min/1.73 sq m ESTIMATED GFR IS NOT xwwb=8082) ACCURATE CREATININE CLEARANCE IN PREDICTING GLOMERULAR FILTRATION RATE. ESTIMATED GFR IS NOT APPLICABLE FOR DIALYSIS PATIENTS. [id number] 21:03:00 Test Item Value Reference Range Comments PROTIME (BEAKER) (test udqe=311) 14.6 seconds 11.9-14.2 INR (BEAKER) (test erzk=407) 1.2 <=5.9 PARTIAL THROMBOPLASTIN TIME (BEAKER) (test 40.5 seconds 22.5-36.0 ckej=005) Effective 10/12/2018: PT Reference Range ChangeNew: 11.9-14.2 Previous: 11.7- 14.7RECOMMENDED COUMADIN/WARFARIN INR THERAPY RANGESSTANDARD DOSE: 2.0-3.0 Includes: PROPHYLAXIS for venous thrombosis, systemic embolization; TREATMENT for venous thrombosis and/or pulmonary embolus.HIGH RISK: Target INR is2.5-3.5 for patients wiht mechanical heart valves.CBC W/PLT COUNT & AUTO [id number] 20:54:00 Test Item Value Reference Range Comments WHITE BLOOD CELL COUNT (BEAKER) (test ywwu=447) 5.2 K/ L 3.5-10.5 RED BLOOD CELL COUNT (BEAKER) (test dhdt=041) 4.21 M/ L 4.63-6.08 HEMOGLOBIN (BEAKER) (test tnsy=522) 12.4 GM/DL 13.7-17.5 HEMATOCRIT (BEAKER) (test drph=830) 38.9 % 40.1-51.0 MEAN CORPUSCULAR VOLUME (BEAKER) (test jehe=105) 92.4 fL 79.0-92.2 MEAN CORPUSCULAR HEMOGLOBIN (BEAKER) (test 29.5 pg 25.7-32.2 qkxc=454) MEAN CORPUSCULAR HEMOGLOBIN CONC (BEAKER) (test 31.9 GM/DL 32.3-36.5 quiw=236) RED CELL DISTRIBUTION WIDTH (BEAKER) (test 14.3 % 11.6-14.4 bnrx=071) PLATELET COUNT (BEAKER) (test ykoi=592) 238 K/CU MM 150-450 MEAN PLATELET VOLUME (BEAKER) (test bwfc=183) 10.0 fL 9.4-12.4 NUCLEATED RED BLOOD CELLS (BEAKER) (test 0 /100 WBC 0-0 iwre=847) NEUTROPHILS RELATIVE PERCENT (BEAKER) (test 61 % xkkc=864) LYMPHOCYTES RELATIVE PERCENT (BEAKER) (test 27 % gfda=205) MONOCYTES RELATIVE PERCENT (BEAKER) (test 8 % afqx=823) EOSINOPHILS RELATIVE PERCENT (BEAKER) (test 3 % mqmz=537) BASOPHILS RELATIVE PERCENT (BEAKER) (test 1 % uxjy=846) NEUTROPHILS ABSOLUTE COUNT (BEAKER) (test 3.17 K/ L 1.78-5.38 flew=331) LYMPHOCYTES ABSOLUTE COUNT (BEAKER) (test 1.38 K/ L 1.32-3.57 ypay=883) MONOCYTES ABSOLUTE COUNT (BEAKER) (test 0.40 K/ L 0.30-0.82 qxox=486) EOSINOPHILS ABSOLUTE COUNT (BEAKER) (test 0.16 K/ L 0.04-0.54 yzps=322) BASOPHILS ABSOLUTE COUNT (BEAKER) (test 0.03 K/ L 0.01-0.08 hwdo=507) IMMATURE GRANULOCYTES-RELATIVE PERCENT (BEAKER) 0 % 0-1 (test fscp=2300)
[2019-05-20 19:52] LABS: Absolute Lymphocytes (CBC) 1.7 K/uL (0.7-4.9); Basophils % 0.6 % (0-1.3); Hematocrit 43.2 % (39.6-49.0); Lymphocytes % 19.8 % (15.3-44.8); MPV 8.3 fL (7.6-11.3); RBC Red Blood Cell Count 4.81 M/uL (4.33-5.43)
[2019-05-20 19:57] LABS: Protime INR 1.47
[2019-05-20] MEDS ORDERED: ASPIRIN 81 MG CHEWABLE TABLET ONE (20:07)
[2019-05-20 20:15] LABS: Albumin 3.9 g/dL (3.4-5.0); Bilirubin Direct 0.2 mg/dL (0-0.2); Bilirubin Total 0.4 mg/dL (0.2-1.0); Magnesium 2.1 mg/dL (1.8-2.4); Potassium 4.6 mmol/L (3.5-5.1); Protein, Total 8.3 g/dL (6.4-8.2); Troponin (Emerg Dept Use Only) 0.03 ng/mL (0.0-0.045)
--- NOTE | 2019-05-20 20:42 | RAD REPORT ---
EXAM DESCRIPTION: RAD - Chest Single View - 05/20/2019 8:27 pm CLINICAL HISTORY: Chest pain COMPARISON: May 10, 2019 ; August 2018 TECHNIQUE: AP portable chest image was obtained 2021 . FINDINGS: Extensive interstitial lung disease is evident. This prominent interstitial pattern is not substantially different from most recent comparison. Cardiomegaly is present. Vascular engorgement i s seen. No measurable pleural effusion and no pneumothorax. No acute bony abnormality seen. No acute aortic findings suspected. IMPRESSION: CHF/volume overload pattern similar to the May 10 study.
--- NOTE | 2019-05-20 21:33 | EDPHYS ---
Physician Documentation [facility] Name: Neftaly Varghese Age: 73 yrs Sex: Male : 1945 Arrival Date: 05/20/2019 Time: 19:35 Bed 5 Private MD: ED Physician Jcarlos Sorenson HPI: 05/20 19:40 This 73 yrs old Male presents to ER via Unassigned with complaints of chest cp pain. 19:40 The patient or guardian reports chest pain that is located primarily in the substernal cp area. Onset: 1 hour(s) ago, resolved prior to arrival. The pain does not radiate. The chest pain is described as sharp. 19:40 Duration: The patient or guardian reports a single episode, that is now resolved. cp 19:40 Associated signs and symptoms: Pertinent negatives: abdominal pain, diaphoresis, lower cp extremity pain, lower extremity swelling, shortness of breath, syncope. The patient has experienced similar episodes in the past, a few times, Patient reports being diagnosed with a-fib last month and transferred to [facility]. Historical: - Allergies: 20:54 Codeine; dm5 - Home Meds: 23:24 clopidogrel 75 mg Oral tab 1 tab once daily for Thrombosis Prevention after dm5 Percutaneous Coronary Intervention [Active]; lisinopril 5 mg Oral tab 1 tab once daily for Hypertension [Active]; Fish Oil 720-1,200 mg Oral cap twice a day for Arteriosclerotic Vascular Disease Prevention [Active]; metoprolol succinate 25 mg oral Tb24 1 tab twice a day [Active]; Nitrostat 0.4 mg SL subl 1 tab as needed [Active]; trazodone 50 mg Oral tab 1 tab nightly [Active]; folic acid 400 mcg oral tab 1 tab once daily [Active]; Eliquis 5 mg oral tab 1 tab 2 times per day [Active]; ezetimibe oral oral 1 tab once daily [Active]; esomeprazole magnesium 40 mg oral cpDR 1 cap once daily [Active]; D3 2000 i.u. daily [Active]; Vitamin B-12 Oral [Active]; rosuvastatin 20 mg oral tab 1 tab once daily [Active]; famotidine 40 mg Oral tab 1 tab once daily [Active]; - PMHx: 20:54 Hyperlipidemia; Hypertension; Myocardial infarction; TIA; Atrial Fib; dm5 - Immunization history:: Adult Immunizations up to date. - Social history:: Smoking status: Patient uses tobacco products, smokes one pack cigarettes per day. - Ebola Screening: : Patient negative for fever greater than or equal to 101.5 degrees Fahrenheit, and additional compatible Ebola Virus Disease symptoms Patient denies exposure to infectious person Patient denies travel to an Ebola-affected area in the 21 days before illness onset No symptoms or risks identified at this time. ROS: 19:45 Constitutional: Negative for body aches, chills, fever, poor PO intake. cp 19:45 Eyes: Negative for injury, pain, redness, and discharge. cp 19:45 ENT: Negative for drainage from ear(s), ear pain, sore throat, difficulty swallowing, difficulty handling secretions. 19:45 Cardiovascular: Positive for chest pain, Negative for edema. 19:45 Respiratory: Negative for cough, shortness of breath, wheezing. 19:45 Abdomen/GI: Negative for abdominal pain, nausea, vomiting, and diarrhea, black/tarry stool, rectal bleeding. 19:45 Back: Negative for pain at rest, pain with movement, radiated pain. 19:45 Neuro: Negative for altered mental status, headache, syncope, weakness. 19:45 All other systems are negative. Exam: 19:50 Constitutional: The patient appears in no acute distress, alert, awake, comfortable, cp non-diaphoretic, non-toxic, well developed, well nourished. 19:50 Head/Face: Normocephalic, atraumatic. cp 19:50 Eyes: Periorbital structures: appear normal, Conjunctiva: normal, no exudate, no injection, Sclera: no appreciated abnormality, Lids and lashes: appear normal, bilaterally. 19:50 ENT: External ear(s): are unremarkable, Nose: is normal, Mouth: Lips: moist, Oral mucosa: pink and intact, moist, Posterior pharynx: is normal, airway is patent, no erythema, no exudate. 19:50 Neck: ROM/movement: is normal, is supple, without pain, no range of motions limitations, no nuchal rigidity. 19:50 Chest/axilla: Inspection: normal, Palpation: is normal, no crepitus, no tenderness. 19:50 Cardiovascular: Rate: normal, Rhythm: regular, Pulses: Pulses are 2+ in right radial artery and left radial artery. Edema: is not appreciated, JVD: is not appreciated. 19:50 Respiratory: the patient does not display signs of respiratory distress, Respirations: normal, no use of accessory muscles, no retractions, no splinting, no tachypnea, labored breathing, is not present, Breath sounds: are clear throughout, no decreased breath sounds, no stridor, no wheezing. 19:50 Abdomen/GI: Inspection: abdomen appears normal, Bowel sounds: active, all quadrants, Palpation: abdomen is soft and non-tender, in all quadrants. 19:50 Back: pain, is absent, ROM is normal. 19:50 Skin: no rash present. 19:50 Neuro: Orientation: to person, place \T\ time. Mentation: is normal, Cerebellar function: is grossly normal, Motor: moves all fours, strength is normal, Sensation: is normal. 19:55 ECG was reviewed by the Attending Physician. cp Vital Signs: 19:35 BP 136 / 82; Pulse 163; Resp 26; Temp 97.7(TE); Pulse Ox 93% on R/A; Weight 79.38 kg; dm5 Height 5 ft. 9 in. (175.26 cm); Pain 5/10; 19:45 Pulse 75; Resp 19 S; Pulse Ox 99% on R/A; dm5 20:46 BP 156 / 71; Pulse 81; Resp 21; Pulse Ox 98% on R/A; Pain 0/10; dm5 21:25 BP 144 / 86; Pulse 76; Resp 22; Pulse Ox 97% on R/A; Pain 0/10; dm5 22:30 BP 146 / 80; Pulse 85; Resp 16; Pulse Ox 96% on R/A; Pain 0/10; aa1 23:30 BP 149 / 79; Pulse 87; Resp 16; Pulse Ox 97% on R/A; Pain 0/10; aa1 05/21 00:40 BP 134 / 73; Pulse 52; Resp 18; Pulse Ox 98% on R/A; Pain 0/10; aa1 01:40 BP 124 / 68; Pulse 47; Resp 16; Temp 98.0; Pulse Ox 99% on R/A; Pain 0/10; aa1 02:32 BP 129 / 82; Pulse 46; Resp 16; Pulse Ox 98% on R/A; Pain 0/10; aa1 03:26 BP 101 / 66; Pulse 47; Resp 16; Temp 97.9; Pulse Ox 98% on R/A; Pain 0/10; aa1 05/20 19:35 Body Mass Index 25.84 (79.38 kg, 175.26 cm) dm5 MDM: 05/20 19:43 Patient medically screened. cp 20:00 Differential diagnosis: abnormal EKG, acute myocardial infarction, gastroesophageal cp reflux disease (GERD), pulmonary embolus, stable angina, thoracic aortic disection, unstable angina. 21:29 Data reviewed: vital signs, nurses notes, lab test result(s), EKG, radiologic studies, cp plain films, I have discussed the patient's presentation/case with the attending Emergency Department Physician; and as a result, I will admit patient. Test interpretation: by ED physician or midlevel provider: ECG, plain radiologic studies. Response to treatment: patient denies any current chest pain. 21:30 The patient was given aspirin in the Emergency Department. cp 21:30 Counseling: I had a detailed discussion with the patient and/or guardian regarding: the cp historical points, exam findings, and any diagnostic results supporting the discharge/admit diagnosis, lab results, radiology results, the need for further work-up and treatment in the hospital. 05/20 19:37 Order name: Basic Metabolic Panel; Complete Time: 20:50 [facility] 05/20 20:50 Interpretation: Normal except: GLUC 107; BUN 23; CRE 2.29; GFR 28. cp 05/20 19:37 Order name: CBC with Diff; Complete Time: 20:50 5 05/20 19:37 Order name: LFT's; Complete Time: 20:50 5 05/20 19:37 Order name: Magnesium; Complete Time: 20:50 5 05/20 19:37 Order name: NT PRO-BNP; Complete Time: 20:50 5 05/20 19:37 Order name: PT-INR; Complete Time: 20:50 5 05/20 19:37 Order name: Troponin (emerg Dept Use Only); Complete Time: 20:50 5 05/20 19:40 Order name: Lipase; Complete Time: 20:50 cp 05/20 22:08 Order name: Basic Metabolic Panel EDND 05/20 22:08 Order name: Basic Metabolic Panel EDMS 05/20 22:08 Order name: CBC with Automated Diff EDMS 05/20 22:08 Order name: CBC with Automated Diff EDMS 05/20 22:08 Order name: Lipid Profile EDMS 05/20 22:08 Order name: Lipid Profile EDMS 05/20 19:37 Order name: XRAY Chest (1 view); Complete Time: 20:50 dm5 05/20 19:37 Order name: EKG; Complete Time: 19:38 dm5 05/20 19:37 Order name: Cardiac monitoring; Complete Time: 20:10 dm5 05/20 19:37 Order name: EKG - Nurse/Tech; Complete Time: 20:10 dm5 05/20 19:37 Order name: IV Saline Lock; Complete Time: 20:10 dm5 05/20 22:08 Order name: Heart Healthy EDMS 05/20 22:08 Order name: Echo with Doppler EDMS 05/20 22:08 Order name: EKG Electrocardiogram EDMS 05/20 22:08 Order name: EKG Electrocardiogram EDMS 05/20 22:08 Order name: Troponin I EDMS 05/20 22:08 Order name: Troponin I EDMS 05/20 22:08 Order name: Troponin I EDMS 05/20 19:37 Order name: Labs collected and sent; Complete Time: 20:10 dm5 05/20 19:37 Order name: O2 Per Protocol; Complete Time: 20:10 dm5 05/20 19:37 Order name: O2 Sat Monitoring; Complete Time: 20:10 dm5 EC:55 Rate is 92 beats/min. Rhythm is irregular. QRS interval is prolonged at 106 msec. QT cp interval is prolonged at 398 msec. T waves are Inverted in leads III, aVF. Interpreted by me. Reviewed by me. Administered Medications: 20:07 Drug: Aspirin Chewable Tablet 324 mg Route: PO; dm5 20:45 Follow up: Response: No adverse reaction dm5 05/21 00:05 Drug: amiodarone 150 mg Volume: 100 ml; Route: IVPB; Infused Over: 10 mins; Site: right aa1 antecubital; 00:15 Follow up: IV Status: Completed infusion aa1 00:05 Drug: Magnesium Sulfate 2 grams Route: IVPB; Infused Over: 30 mins; Site: right aa1 antecubital; 00:35 Follow up: IV Status: Completed infusion aa1 00:10 Drug: amiodarone 900 mg, D5W 500 ml Route: IVPB; Rate: 1 mg/min; Site: left antecubital;aa1 01:05 Follow up: IV Status: Infusion continued upon admission aa1 Disposition: 00:16 Critical Care:. cp Disposition: 05/20/19 21:30 Hospitalization ordered by J Luis Casanova for Observation. Preliminary diagnosis are Chest pain, unspecified, Ventricular tachycardia. - Bed requested for Intensive Care Unit. - Status is Observation. aa1 - Condition is Stable. - Problem is new. - Symptoms are resolved. UTI on Admission? No Critical care time excluding procedures: 00:16 Critical care time: Bedside Care: 10 minutes, Consultation: 15 minutes, Family cp Intervention: 5 minutes. Total time: 30 minutes Signatures: Dispatcher [employer] EDMS Ness Lugo RN RN dm5 Basia Hobbs RN RN aa1 Hi Miranda PA PA cp Aguilar, Jose RN RN ja1 Emerald Araujo cm6 Corrections: (The following items were deleted from the chart) 00:17 05/20 21:30 Hospitalization Ordered by J Luis Casanova MD for Observation. Preliminary cp diagnosis is Chest pain, unspecified. Bed requested for Telemetry/MedSurg (observation). Status is Observation. Condition is Stable. Problem is new. Symptoms are resolved. UTI on Admission? No. cp 05/21 02:16 00:17 05/20/2019 21:30 Hospitalization Ordered by J Luis Casanova MD for Observation. ja1 Preliminary diagnosis is Chest pain, unspecified; Ventricular tachycardia. Bed requested for Intensive Care Unit. Status is Observation. Condition is Stable. Problem is new. Symptoms are resolved. UTI on Admission? No. cp 03:16 02:16 05/20/2019 21:30 Hospitalization Ordered by J Luis Casanova MD for Observation. cm6 Preliminary diagnosis is Chest pain, unspecified; Ventricular tachycardia. Bed requested for Intensive Care Unit. Status is Observation. Condition is Stable. Problem is new. Symptoms are resolved. UTI on Admission? No. ja1 03:28 03:16 05/20/2019 21:30 Hospitalization Ordered by J Luis Casanova MD for Observation. aa1 Preliminary diagnosis is Chest pain, unspecified; Ventricular tachycardia. Bed requested for Intensive Care Unit. Status is Observation. Condition is Stable. Problem is new. Symptoms are resolved. UTI on Admission? No. cm6 05/22 99:05/21 19:45 Constitutional: Negative for body aches, chills, fever, poor PO intake, cp cp 05/22 99:05/21 19:45 Eyes: Negative for injury, pain, redness, and discharge, cp cp 05/22 99:05/21 19:45 ENT: Negative for drainage from ear(s), ear pain, sore throat, difficulty cp swallowing, difficulty handling secretions, cp 05/22 99:05/21 19:45 Cardiovascular: Positive for chest pain, Negative for edema, cp cp 05/22 99:05/21 19:45 Respiratory: Negative for cough, shortness of breath, wheezing, cp cp 05/22 99:05/21 19:45 Abdomen/GI: Negative for abdominal pain, nausea, vomiting, and diarrhea, cp black/tarry stool, rectal bleeding, cp 05/22 99:05/21 19:45 Back: Negative for radiated pain, cp cp 05/22 99:05/21 19:45 Neuro: Negative for altered mental status, dizziness, syncope, weakness, cp cp 05/22 99:05/21 19:45 All other systems are negative, cp cp
[2019-05-20] MEDS ORDERED: MORPHINE 4 MG/ML SYR IV PRN (21:56)
[2019-05-20] MEDS ORDERED: ACETAMINOPHEN 500 MG TAB PO PRN (21:56)
[2019-05-20] MEDS ORDERED: ALPRAZOLAM 0.25 MG TABLET PO PRN (21:56)
[2019-05-21] MEDS ORDERED: Magnesium Sulfate 2gm IVPB 2 G/50 ML BAG IV ONE (00:05)
[2019-05-21] MEDS ORDERED: AMIODARONE HCL 150 MG/3 ML INJ IV ONE (00:05)
[2019-05-21] MEDS ORDERED: AMIODARONE IN DEXTROSE,ISO-OSM 360 MG/200 ML BAG IV ONE ×2 (00:11→05:26)
[2019-05-21] MEDS ORDERED: AMIODARONE HCL 450 MG in D5W 241 ML IV SCH (03:24)
--- NOTE | 2019-05-21 03:31 | ER ---
Nurse's Notes 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 states that pt is scheduled to have an ablation next week. Transition of care: patient was not received from another setting of care. Onset of symptoms was May 20, 2019. Risk Assessment: Do you want to hurt yourself or someone else? Patient reports no desire to harm self or others. Initial Sepsis Screen: Does the patient meet any 2 criteria? RR > 20 per min. HR > 90 bpm. Yes Does the patient have a suspected source of infection? No. Patient's initial sepsis screen is negative. Care prior to arrival: None. 19:35 Method Of Arrival: Ambulatory 5 Triage Assessment: 19:30 General: Appears uncomfortable, well groomed, Behavior is cooperative, anxious. Pain: dm5 Complains of pain in chest Pain currently is 5 out of 10 on a pain scale. Neuro: No deficits noted. Cardiovascular: Reports chest pain, Denies lightheadedness, nausea, vomiting. Respiratory: Airway is patent Respiratory effort is even, unlabored, Respiratory pattern is regular. GI: No deficits noted. : No deficits noted. Derm: Skin is pink, warm \T\ dry. Historical: - Allergies: 20:54 Codeine; dm5 - Home Meds: 23:24 clopidogrel 75 mg Oral tab 1 tab once daily for Thrombosis Prevention after dm5 Percutaneous Coronary Intervention [Active]; lisinopril 5 mg Oral tab 1 tab once daily for Hypertension [Active]; Fish Oil 720-1,200 mg Oral cap twice a day for Arteriosclerotic Vascular Disease Prevention [Active]; metoprolol succinate 25 mg oral Tb24 1 tab twice a day [Active]; Nitrostat 0.4 mg SL subl 1 tab as needed [Active]; trazodone 50 mg Oral tab 1 tab nightly [Active]; folic acid 400 mcg oral tab 1 tab once daily [Active]; Eliquis 5 mg oral tab 1 tab 2 times per day [Active]; ezetimibe oral oral 1 tab once daily [Active]; esomeprazole magnesium 40 mg oral cpDR 1 cap once daily [Active]; D3 2000 i.u. daily [Active]; Vitamin B-12 Oral [Active]; rosuvastatin 20 mg oral tab 1 tab once daily [Active]; famotidine 40 mg Oral tab 1 tab once daily [Active]; - PMHx: 20:54 Hyperlipidemia; Hypertension; Myocardial infarction; TIA; Atrial Fib; dm5 - Immunization history:: Adult Immunizations up to date. - Social history:: Smoking status: Patient uses tobacco products, smokes one pack cigarettes per day. - Ebola Screening: : Patient negative for fever greater than or equal to 101.5 degrees Fahrenheit, and additional compatible Ebola Virus Disease symptoms Patient denies exposure to infectious person Patient denies travel to an Ebola-affected area in the 21 days before illness onset No symptoms or risks identified at this time. Screenin:00 Abuse screen: Denies threats or abuse. Denies injuries from another. Nutritional aa1 screening: No deficits noted. Tuberculosis screening: No symptoms or risk factors identified. Fall Risk IV access (20 points). Assessment: 20:56 Reassessment: Patient appears in no apparent distress at this time. Patient and/or dm5 family updated on plan of care and expected duration. Pain level reassessed. Patient is alert, oriented x 3, equal unlabored respirations, skin warm/dry/pink. Patient states feeling better. Pain: Denies pain. 21:32 Reassessment: Patient appears in no apparent distress at this time. Patient and/or dm5 family updated on plan of care and expected duration. Pain level reassessed. Patient is alert, oriented x 3, equal unlabored respirations, skin warm/dry/pink. Patient states feeling better. 22:30 Reassessment: Patient appears in no apparent distress at this time. Patient and/or aa1 family updated on plan of care and expected duration. Pain level reassessed. Patient is alert, oriented x 3, equal unlabored respirations, skin warm/dry/pink. Awaiting bed assignment. 05/21 00:00 Reassessment: Patient appears in no apparent distress at this time. Patient is alert, aa1 oriented x 3, equal unlabored respirations, skin warm/dry/pink. Pt beginning to have runs of vtach on monitor. Denies any pain, SOB, or other symptoms ERP notified and at bedside Patient denies pain at this time. 01:00 Reassessment: Patient appears in no apparent distress at this time. Patient and/or aa1 family updated on plan of care and expected duration. Pain level reassessed. Patient is alert, oriented x 3, equal unlabored respirations, skin warm/dry/pink. Awaiting bed assignment Patient denies pain at this time. 02:00 Reassessment: Patient appears in no apparent distress at this time. Patient and/or aa1 family updated on plan of care and expected duration. Pain level reassessed. Patient is alert, oriented x 3, equal unlabored respirations, skin warm/dry/pink. Awaiting bed assignment. 02:32 Reassessment: Patient appears in no apparent distress at this time. Patient and/or aa1 family updated on plan of care and expected duration. Pain level reassessed. Patient is alert, oriented x 3, equal unlabored respirations, skin warm/dry/pink. Attempted to call report to ICU; pt has not been assigned yet so nurse will call back shortly. 03:26 Reassessment: Patient appears in no apparent distress at this time. Patient is alert, aa1 oriented x 3, equal unlabored respirations, skin warm/dry/pink. Report given to YEIMI Garcia Patient denies pain at this time. Vital Signs: 05/20 19:35 BP 136 / 82; Pulse 163; Resp 26; Temp 97.7(TE); Pulse Ox 93% on R/A; Weight 79.38 kg; dm5 Height 5 ft. 9 in. (175.26 cm); Pain 5/10; 19:45 Pulse 75; Resp 19 S; Pulse Ox 99% on R/A; dm5 20:46 BP 156 / 71; Pulse 81; Resp 21; Pulse Ox 98% on R/A; Pain 0/10; dm5 21:25 BP 144 / 86; Pulse 76; Resp 22; Pulse Ox 97% on R/A; Pain 0/10; dm5 22:30 BP 146 / 80; Pulse 85; Resp 16; Pulse Ox 96% on R/A; Pain 0/10; aa1 23:30 BP 149 / 79; Pulse 87; Resp 16; Pulse Ox 97% on R/A; Pain 0/10; aa1 05/21 00:40 BP 134 / 73; Pulse 52; Resp 18; Pulse Ox 98% on R/A; Pain 0/10; aa1 01:40 BP 124 / 68; Pulse 47; Resp 16; Temp 98.0; Pulse Ox 99% on R/A; Pain 0/10; aa1 02:32 BP 129 / 82; Pulse 46; Resp 16; Pulse Ox 98% on R/A; Pain 0/10; aa1 03:26 BP 101 / 66; Pulse 47; Resp 16; Temp 97.9; Pulse Ox 98% on R/A; Pain 0/10; aa1 05/20 19:35 Body Mass Index 25.84 (79.38 kg, 175.26 cm) dm5 ED Course: 05/20 19:30 Arm band placed on right wrist. Patient placed in an exam room. EKG completed in dm5 triage. Results shown to MD. 19:35 Patient arrived in ED. dm5 19:35 Patient has correct armband on for positive identification. Placed in gown. Bed in low aa1 position. Call light in reach. cardiac monitor on. Pulse ox on. NIBP on. Warm blanket given. 19:35 Inserted saline lock: 20 gauge in right antecubital area, using aseptic technique. dm5 Blood collected. 19:39 Hi Miranda PA is PHCP. cp 19:39 Jcarlos Sorenson MD is Attending Physician. cp 19:59 Triage completed. dm5 20:00 Patient maintains SpO2 saturation greater than 95% on room air. aa1 20:27 XRAY Chest (1 view) In Process Unspecified. EDMS 20:45 Ness Lugo, RN is Primary Nurse. dm5 21:30 J Luis Casanova MD is Hospitalizing Provider. cp 23:59 Inserted saline lock: 18 gauge in left antecubital area, using aseptic technique. aa1 ,using aseptic technique. by Dilcia Long RN. 05/21 00:31 Basia Hobbs, YEIMI is Primary Nurse. aa1 02:36 No provider procedures requiring assistance completed. Patient admitted, IV remains in aa1 place. Administered Medications: 05/20 20:07 Drug: Aspirin Chewable Tablet 324 mg Route: PO; dm5 20:45 Follow up: Response: No adverse reaction dm5 05/21 00:05 Drug: amiodarone 150 mg Volume: 100 ml; Route: IVPB; Infused Over: 10 mins; Site: right aa1 antecubital; 00:15 Follow up: IV Status: Completed infusion aa1 00:05 Drug: Magnesium Sulfate 2 grams Route: IVPB; Infused Over: 30 mins; Site: right aa1 antecubital; 00:35 Follow up: IV Status: Completed infusion aa1 00:10 Drug: amiodarone 900 mg, D5W 500 ml Route: IVPB; Rate: 1 mg/min; Site: left antecubital;aa1 01:05 Follow up: IV Status: Infusion continued upon admission aa1 Outcome: 05/20 21:30 Decision to Hospitalize by Provider. cp 05/21 03:27 Admitted to ICU accompanied by nurse, via stretcher, room 1, on monitor, with chart, aa1 Report called to YEIMI Garcia Condition: stable Discharge instructions given to patient, Instructed on the need for admit, Demonstrated understanding of instructions. 03:28 Patient left the ED. aa1 Signatures: Dispatcher [employer] EDMS Ness Lugo RN RN dm5 Basia Hobbs RN RN aa1 Hi Miranda PA PA cp Corrections: (The following items were deleted from the chart) 05/20 20:49 19:35 BP 136 / 82; Pulse 163bpm; Resp 26bpm; Pulse Ox 93% RA; Temp 97.7F Temporal; Pain dm5 5/10; dm5 20:49 20:46 BP 156 / 71; Pulse 81bpm; Resp 21bpm; Pulse Ox 98% RA; dm5 dm5 20:56 20:54 General: Appears uncomfortable, well groomed, Behavior is cooperative, anxious, dm5 dm5 20:56 20:54 Pain: Complains of pain in chest Pain currently is 5 out of 10 on a pain scale. dm5 dm5 20:56 20:54 Cardiovascular: Reports chest pain, Denies lightheadedness, nausea, vomiting, dm5 dm5 20:56 20:54 Respiratory: Airway is patent Respiratory effort is even, unlabored, Respiratory dm5 pattern is regular, dm5 20:56 20:54 GI: No deficits noted. dm5 dm5 20:56 20:54 : No deficits noted. dm5 dm5 20:56 20:54 Derm: Skin is pink, warm \T\ dry. dm5 dm5 20:56 20:54 Neuro: No deficits noted. dm5 dm5
[2019-05-21 05:31] LABS: Absolute Lymphocytes (CBC) 1.5 K/uL (0.7-4.9); Basophils % 0.7 % (0-1.3); Hematocrit 39.2 % (39.6-49.0); Lymphocytes % 26.4 % (15.3-44.8); MPV 8.3 fL (7.6-11.3); RBC Red Blood Cell Count 4.44 M/uL (4.33-5.43)
[2019-05-21 05:57] LABS: Troponin I 0.73 ng/mL (0.0-0.045)
[2019-05-21] MEDS ORDERED: METOPROLOL TAR 50 MG TAB PO SCH (06:00)
[2019-05-21 06:03] LABS: Potassium 4.4 mmol/L (3.5-5.1)
[2019-05-21] MEDS ORDERED: ENOXAPARIN 80 MG/0.8 ML SQ ONE (07:00)
[2019-05-21] MEDS: ASPIRIN 325 MG TAB PO SCH (09:00)
[2019-05-21] MEDS ORDERED: ASPIRIN EC 81 MG TAB PO SCH (09:00)
[2019-05-21] MEDS ORDERED: ENOXAPARIN 80 MG/0.8 ML SQ SCH ×2 (09:00→21:00)
[2019-05-21] MEDS ORDERED: ENOXAPARIN 40 MG/0.4 ML SQ SCH (09:00)
[2019-05-21] MEDS ORDERED: NITROGLYCERIN 0.4 MG/TAB SL PRN (12:01)
--- NOTE | 2019-05-21 12:46 | EKG ---
Test Date: 2019-05-21 Test Time: 05:34:21 Manager Epic: RT Canela MEASUREMENT RESULTS: Intervals: Rate: 42 WA: 200 QRSD: 110 QT: 508 QTc: 424 [place]: P: 60 WA: 200 QRS: 78 T: 127 INTERPRETIVE STATEMENTS: Marked sinus bradycardia ST & T wave abnormality, consider anterolateral ischemia Abnormal ECG Compared to ECG 05/10/2019 10:19:01 Possible ischemia now present Left bundle-branch block no longer present Prolonged QT interval no longer present ST (T wave) deviation still present Electronically Signed On 05-21-19 12:46:01 CENTRAL COMMUNICATIONS SPECIALIST by John Garber
--- NOTE | 2019-05-21 12:48 | EKG ---
Test Date: 2019-05-21 Test Time: 00:08:39 Recreational Aide: SWG MEASUREMENT RESULTS: Intervals: Rate: 58 [place]: QRSD: 106 QT: 384 QTc: 376 [place]: P: DE: QRS: 72 T: 201 INTERPRETIVE STATEMENTS: afib rate controlled Incomplete left bundle branch block ST & T wave abnormality, consider anterolateral ischemia Abnormal ECG Compared to ECG 05/10/2019 10:19:01 Ventricular premature complex(es) now present Possible ischemia now present Prolonged QT interval no longer present ST (T wave) deviation still present Electronically Signed On 05-21-19 12:47:26 PERSONAL LINES ADVISOR by John Garber
--- NOTE | 2019-05-21 17:52 | PN ---
Subjective: Currently patient lying in bed. He looks comfortable. He has no chest pain. No abdomi nal pain. His at the bedside. Review of Systems: Otherwise negative. Physical Examination: Vital Signs: Blood pressure is 140/70, respiratory rate 15, pulse 45 to 47, temperature 97.2. He sa turating 98% on room air. General: He is alert and oriented x3, does not look in any distress. HEENT: Atraumatic, normocephalic. PERRLA. Oral mucosa is moist. Neck: Supple. No JVD. No carotid bruits. Chest: Clear to auscultation. Good air entry. Heart: Regular rate and rhythm. S1, S2 normal. No gallop or murmur. Abdomen: Soft, nontender. No masses. No hepatosplenomegaly. Positive bowel sounds. Extremities: No clubbing, cyanosis, or edema. No calf tenderness. Neurologic: Grossly intact. Cranial nerve exam 2 through 12 intact. Normal sensation. Normal refl exes. Normal muscle strength. Laboratory Data: Today, showed CBC within normal except for hemoglobin 13.1, INR of 7.1. Chemistry within normal except for BUN of 21, creatinine of 2.1, creatine kinase of 31. Troponin first set was negative. Second set was 0.73. BNP of 8878. Assessment And Plan: This is a 73-year-old gentleman with extensive history of coronary artery disea se, transient ischemic attack, atrial fibrillation, hypertension, hyperlipidemia, presented with ches t pain. 1.Chest pain, rule out myocardial infarction. Troponin has been trending down to 0.73. Continue pa chuck on aspirin, Plavix, full dose of Lovenox. We will hold metoprolol given his bradycardia this m orning. Cardiology consult is pending. Next set of troponin will be around 2 p.m. 2.Ventricular tachycardia ? ischemia-induced. Patient is currently on amiodarone drip. He is elbert cardic. I will hold his metoprolol. Waiting for Dr. Garber to evaluate the patient and see if he c an consider him to be switched to oral amiodarone and resume his metoprolol and then we can transfer patient to the floor. I will check the patient's TSH and thyroid profile. His potassium is normal a s well as magnesium yesterday. 3.Chronic renal insufficiency. We will observe for now. a.He is followed by Nephrology, Dr. Morales. b.Creatinine baseline around 2. 4.Elevated BNP secondary to his elevated creatinine as well as history of congestive heart failure. Patient had echocardiogram last August and that showed normal with normal EF, so we will not repeat t hat unless Dr. Garber would like another echocardiogram. 5.Hyperlipidemia. Resume patient's Zetia and statin. 6.Insomnia, on trazodone. 7.No need for deep vein thrombosis prophylaxis. Patient already on full dose of Lovenox. MT/MODL Voice ID: [id number] Report ID: [id number]
[2019-05-21] MEDS: ROSUVASTATIN 10 MG TAB PO SCH (20:41)
[2019-05-21] MEDS: TRAZODONE 50 MG TABLET PO SCH (20:41)
[2019-05-21] MEDS: FAMOTIDINE 20 MG/2 ML VIAL IV SCH (20:42)
[2019-05-21] MEDS ORDERED: HOME MED 1 EA UNK (Rosuvastatin Calcium [Rosuvastatin Calcium] 20 MG) PO SCH (21:00)
[2019-05-21] MEDS ORDERED: HOME MED 1 EA UNK (Famotidine [Famotidine] 40 MG) PO SCH (21:00)
[2019-05-21] MEDS ORDERED: APIXABAN 5 MG TABLET PO SCH (21:00)
[2019-05-21 22:05] LABS: T4,Total 5.8 ug/dL (4.5-12.1); Thyroid Stimulating Hormone 1.56 uIU/mL (0.360-3.740)
--- NOTE | 2019-05-21 22:32 | CON ---
Date of Consultation: 05/21/2019 Reason For Consultation: Chest pain, ventricular tachycardia, and non-ST elevation myocardial infarc tion. History Of Present Illness: Mr. Varghese is a 73-year-old white male, he is known to me from previous office visits and admission. He has a very complex past medical history. It is of interest that he was in the hospital here a few days ago around [place] and had an episode of chest pain, positive troponin, ventricular tachycardia on the EKG. He was sent to [place] and as far as I know, only an e chocardiogram was done and planned to do an ablation for an atrial fibrillation. He was placed on El iquis and metoprolol. He is actually scheduled for ablation this Wednesday. Atrial fibrillation was ne dennis documented while he was here. He did not have a stress test or catheterization when he went to [facility]. He comes back to the emergency room on 05/20/2019 with chest pain [facility] had an episode of ventricular tachycardia while he was having the chest pain. He was placed on IV amiodarone and Lovenox along with aspirin and Plavix and lisinopril and his metoprolol was held. He continued Crestor. Eliquis was held. He continued Zetia. He was placed in the ICU fo r further monitoring. Has not had any further episodes of ventricular tachycardia. The initial EKG when he came in did show some atrial fibrillation with a rate control of 80. He is now in sinus rhyt hm. His chest pain is mid epigastric, radiating to the upper chest with some diaphoresis and shortne ss of breath, nausea, no vomiting. His troponin was positive at 0.73. His BNP was 8878. His creati nine was 2.10. 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 He also has hypertensi on, dyslipidemia. Social History: Positive for tobacco. Family History: Negative. Review of Systems: Negative. Allergies: CODEINE AND FENTANYL. Medications: At home include lisinopril, Eliquis, metoprolol, Plavix, Crestor, and Zetia. Physical Examination: General: When I saw Mr. Varghese today, he was in normal rhythm. He was in no acute distress. Vital Signs: Stable. He was afebrile. HEENT: Negative. Neck: Supple with right carotid bruit. No JVD or thyromegaly. Chest: Clear. Cardiac: Exam revealed a regular rhythm and rate. No murmurs, gallops, or rubs. Abdomen: Benign. Extremities: Revealed no clubbing, cyanosis, or edema. Neurological: He was nonfocal. Skin: Dry and intact. Pulses very weak in both femoral arteries. Diagnostic Data: As stated earlier. Impression And Plan: I think Mr. Varghese is having ventricular tachycardia secondary to ischemic cor onary artery disease and possibly congestive heart failure and cardiomyopathy. We will obtain a 2D e chocardiogram. He needs to have a heart catheterization. The arm approach, either wrist or left gre at toe. He understand the risks and the benefits of the procedure and he agrees to proceed. He has a creatinine of 2.10 and I will give him Mucomyst before and after the procedure. This has already b een ordered. I am not so sure he needs an ablation for his atrial fibrillation. He has only been on metoprolol and Eliquis for about 2 weeks. I will contact his shrimper in [place], Dr. Osuna, his phone #[phone] to see what their plans really were and why an ablation was derrick eduled before any other attempt from a medical therapy standpoint. According to Mr. Varghese and his family, nobody mentioned anything with ventricular tachycardia in [place]. They were mostly worried about the atrial fibrillation. Nevertheless, we will see what the echo shows and the cath shows prio r to making any further decisions. His other problems right now including his dyslipidemia and hypertension is carotid artery disease and his renal artery stenosis and his PAD seem to be stable at this point. GIO/DAWIT Voice ID: [id number] Report ID: [id number]
--- NOTE | 2019-05-22 01:32 | P.HP ---
Certification for Inpatient Patient admitted to: Inpatient With expected LOS: >2 Midnights Patient will require the following post-hospital care: None Practitioner: I am a practitioner with admitting privileges, knowledge of patient current condition, hospital course, and medical plan of care. Services: Services provided to patient in accordance with Admission requirements found in Title 42 Section 412.3 of the Code of Federal Regulations Patient History Date of Service: 05/20/19 Reason for admission: Chest pain rule out acute coronary syndrome/ventricular arrhythmia History of Present Illness: Patient is a 73-year-old gentleman came into the hospital with chest discomfort. Patient has an extensive cardiac history and was recently at [facility] for workup for his cardiac disease. He was found to be in atrial fibrillation and he was scheduled for an ablation. Patient was discharged for outpatient follow-up. He returned with persistent chest pain. He apparently had atrial fibrillation on arrival, but he is on a beta-arely and anticoagulation at home. When the chest pain started he came into the emergency room. After being in the emergency room for 2-3 hr he had an arrhythmia which went away on its own. A short while later he had a persistent ventricular tachyarrhythmia. He was started on amiodarone. He converted to sinus bradycardia. He will be admitted to the hospital for further workup. Allergies codeine Adverse Reaction (Mild, Verified 06/30/16 10:09) Nausea/Vomiting fentanyl Adverse Reaction (Verified 06/30/16 10:09) Nausea/Vomiting Home Medications: Apixaban [Eliquis] 5 mg PO BID 05/21/19 Cholecalciferol (Vitamin D3) [Vitamin D3] 2,000 unit PO DAILY 05/21/19 Clopidogrel Bisulfate [Plavix*] 75 mg PO DAILY 05/21/19 Cyanocobalamin (Vitamin B-12) [Vitamin B12] 2,500 mcg PO DAILY 05/21/19 Docosahexanoic AC/Epa [Fish Oil 1,000 MG*] 2,000 mg PO DAILY 05/21/19 Esomeprazole Magnesium 40 mg PO DAILY 05/21/19 Ezetimibe 10 mg PO DAILY 05/21/19 Famotidine 40 mg PO BEDTIME 05/21/19 Folic Acid 0.4 mg PO DAILY 05/21/19 Metoprolol Succinate 25 mg PO BID 05/21/19 Nitroglycerin [Nitrostat*] 0.4 mg SL PRN PRN 05/21/19 Rosuvastatin Calcium 20 mg PO BEDTIME 05/21/19 Trazodone [Desyrel*] 50 mg PO BEDTIME 05/21/19 lisinopriL [Lisinopril] 5 mg PO DAILY 05/21/19 - Past Medical/Surgical History Has patient received pneumonia vaccine in the past: Yes Diabetic: No -: HTN -: BPH -: CAD, NM, Stent to the heart, Cardiology-Dr. 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, [employer] - Family History Mother Medical History: Hypertension, Kidney disease Father Medical History: Heart disease, Hypertension, Kidney disease Notes: hx: HD Sister Medical History: Diabetes - Social History Smoking Status: Current every day smoker Alcohol use: Yes CD- Drugs: No Caffeine use: Yes Place of Residence: Home Review of Systems 10-point ROS is otherwise unremarkable Physical Examination - Vital Signs Temperature: 97.2 F Blood Pressure: 152/82 Pulse: 55 Respirations: 21 Pulse Ox (%): 100 - Physical Exam General: Alert, In no apparent distress, Oriented x3 HEENT: Atraumatic, PERRLA, Mucous membr. moist/pink, EOMI, Sclerae nonicteric Neck: Supple, 2+ carotid pulse no bruit, No LAD, Without JVD or thyroid abnormality Respiratory: Clear to auscultation bilaterally, Normal air movement Cardiovascular: No murmurs, Other (Sinus bradycardia) Gastrointestinal: Normal bowel sounds, Soft and benign, Non-distended, No tenderness Musculoskeletal: No clubbing, No swelling, No tenderness Integumentary: No rashes Neurological: Normal gait, Normal speech, Normal strength at 5/5 x4 extr, Normal tone, Sensation intact, Cranial nerves 3-12 intact, Normal affect Lymphatics: No axilla or inguinal lymphadenopathy - Studies Laboratory Data (last 24 hrs) 05/21/19 14:00: Troponin I 0.57 H* 05/21/19 05:07: Troponin I 0.73 H*, Triglycerides 80, Cholesterol 99, HDL Cholesterol 49, Cholesterol/HDL Ratio 2.02 05/21/19 05:07: Sodium 139, Potassium 4.4, BUN 21 H, Creatinine 2.10 H, Glucose 106 05/21/19 05:07: WBC 5.8 D, Hgb 13.1 L, Hct 39.2 L, Plt Count 264 Assessment & Plan - Problems (Diagnosis) (1) Ventricular tachyarrhythmia Current Visit: Yes Status: Acute (2) Atrial fibrillation Current Visit: Yes Status: Acute (3) NSTEMI (non-ST elevated myocardial infarction) Current Visit: Yes Status: Acute (4) Benign prostatic hypertrophy without outflow obstruction Current Visit: No Status: Acute (5) Carotid artery occlusion Current Visit: No Status: Acute (6) Coronary arteriosclerosis Current Visit: No Status: Acute (7) Hypertensive disorder, systemic arterial Current Visit: No Status: Acute (8) Renal artery stenosis Current Visit: No Status: Acute (9) Tobacco dependence syndrome Current Visit: No Status: Acute - Plan 1. Serial troponins and EKG 2. Cardiology consultation 3. Echocardiogram and cardiac catheterization per Cardiology 4. Anti-platelet therapy, anti coagulation, beta-arely, statin, and O2 as needed 5. IV morphine for pain 6. Nitro p.r.n. 7. Antiarrhythmic with amiodarone 8. GI and DVT prophylaxis Discharge Plan: Home Plan to discharge in: Greater than 2 days - Advance Directives Does patient have a Living Will: No Does patient have a Durable POA for Healthcare: No - Code Status/Comfort Care Code Status Assessed: Yes Code Status: Full Code Critical Care: Yes Time Spent Managing PTS Care (In Minutes): 45
[2019-05-22] MEDS ORDERED: NACHLORIDE 0.45% 1,000 ML IV ONE (02:55)
[2019-05-22] MEDS: NACHLORIDE 0.45% 1,000 ML with NA BICARB 8.4% 50 MEQ IV SCH ×2 (02:58)
[2019-05-22 05:14] VITALS: BMI 26.2
[2019-05-22] MEDS: lisinopriL 5 MG TAB PO SCH (05:38)
[2019-05-22] MEDS: ASPIRIN 325 MG TAB PO SCH (05:38)
[2019-05-22] MEDS ORDERED: ACETYLCYST 20% 800 MG/4 ML VIAL PO ONE (06:00)
[2019-05-22] MEDS ORDERED: ACETYLCYST 6,000 MG/30 ML VIAL PO ONE ×2 (06:00→12:00)
[2019-05-22] MEDS ORDERED: HEPARIN 5000 UNIT/ML 1 ML VIAL ONE (07:05)
[2019-05-22] MEDS ORDERED: NICARDIPINE HCL 25 MG/10 ML IV ONE (07:05)
[2019-05-22] MEDS ORDERED: NITROGLYCERIN 100 MCG/ML SYR (for cath lab use only) IV ONE (07:05)
[2019-05-22] MEDS ORDERED: HEPA 1000U/500MLS 2,000 UNIT/1,000 ML BAG IV ONE (07:05)
[2019-05-22] MEDS ORDERED: NITROGLYCERIN/D5W 25 MG/250 ML BTL IV ONE (07:05)
[2019-05-22] MEDS ORDERED: ATROPINE SULF 1 MG/10 ML SYR IV ONE (07:05)
[2019-05-22] MEDS ORDERED: LIDOCAINE 1% MPF 30 ML VIAL ONE (07:05)
[2019-05-22] MEDS ORDERED: NA CHLORIDE 0.9% 0 ML ONE (07:05)
[2019-05-22] MEDS ORDERED: FENTANYL CITR 100 MCG/2 ML ONE (07:06)
[2019-05-22] MEDS ORDERED: MIDAZOLAM HCL 2 MG/2 ML INJ ONE ×2 (07:06→08:22)
[2019-05-22] MEDS: PANTOPRAZOLE 40MG TABLET PO SCH (07:13)
[2019-05-22] MEDS ORDERED: HOME MED 1 EA UNK (Cyanocobalamin (Vitamin B-12) [Vitamin B12] 2,500 MCG) PO SCH (09:00)
[2019-05-22] MEDS ORDERED: HOME MED 1 EA UNK (Esomeprazole Magnesium [Esomeprazole Magnesium] 40 MG) PO SCH (09:00)
[2019-05-22] MEDS: VITAMIN D 1000 UNIT TAB PO SCH (09:00)
[2019-05-22] MEDS ORDERED: CLOPIDOGREL 75 MG TABLET PO SCH (09:00)
[2019-05-22] MEDS: FOLIC ACID 1 MG TABLET PO SCH (09:00)
[2019-05-22] MEDS: CYANOCOBALAMIN 1,000 MCG TAB PO SCH (09:00)
[2019-05-22] MEDS: EZETIMIBE 10 MG TAB PO SCH (09:00)
[2019-05-22] MEDS ORDERED: ENOXAPARIN 80 MG/0.8 ML SQ SCH (09:00)
[2019-05-22] MEDS: DOCOSAHEXANOIC AC/EPA 1000 MG PO SCH (09:00)
[2019-05-22] MEDS ORDERED: HOME MED 1 EA UNK (Cholecalciferol (Vitamin D3) [Vitamin D3] 2,000 UNIT) PO SCH (09:00)
--- NOTE | 2019-05-22 12:52 | ECHO ---
HEIGHT: 5 ft 9 in WEIGHT: 178 lb 0 oz DATE OF STUDY: 05/22/[address]: J Luis Casanova MD 2-DIMENSIONAL: YES M.MODE: YES DOPPLER: YES COLOR FLOW: YES TDS: NO PORTABLE: NO DEFINITY: NO BUBBLE STUDY: NO DIAGNOSIS: CHEST PAIN CARDIAC HISTORY: CATHERIZATION: YES SURGERY: NO PROSTHETIC VALVE: NO PACEMAKER: NO MEASUREMENTS (cm) DIASTOLIC (NORMALS) SYSTOLIC (NORMALS) IVSd 0.9 (0.6-1.2) LA Diam 3.7 (1.9-4.0) LVEF 38% LVIDd 6.7 (3.5-5.7) LVIDs 5.4 (2.0-3.5) %FS 19% LVPWd 1.0 (0.6-1.2) Ao Diam 3.2 (2.0-3.7) 2 DIMENSIONAL ASSESSMENT: RIGHT ATRIUM: NORMAL LEFT ATRIUM: DILATED RIGHT VENTRICLE: NORMAL LEFT VENTRICLE: DILATED TRICUSPID VALVE: NORMAL MITRAL VALVE: NORMAL PULMONIC VALVE: NORMAL AORTIC VALVE: NORMAL PERICARDIAL EFFUSION: NONE AORTIC ROOT: NORMAL LEFT VENTRICULAR WALL MOTION: AKINESIS OF POSTEROBASAL WALL, HYPOKINESIS ELSEWHERE. DOPPLER/COLOR FLOW: MILD MITRAL REGURGITATION. COMMENTS: DEPRESSED LEFT VENTRICULAR EJECTION FRACTION WITH WALL MOTION ABNORMALITY. MILD MITRAL REGURGITATION. TECHNOLOGIST: Leonel GOODWIN
--- NOTE | 2019-05-22 19:24 | OP ---
Surgeon: Tyrel Mann MD Procedure: Left heart catheterization with coronary angiography. No LV gram was done to minimize contrast load. He has severe renal insufficiency. Procedure Findings: The patient's right coronary has an ostial subtotal stenosis. He gives a string sign and the distal RCA fills as much by collaterals as it does from antegrade flow. It looks like a very challenging lesion to try an angioplasty, because it looks like getting good guide support might be extremely challenging to overly risky to the patient. His LAD has a stent in its proximal part. The diagonal branch is off from the stented portion and has a 70% ostial stenosis. The LAD, circumflex, and very large ramus are free of any significant disease. Left ventricular end-diastolic pressure was 15. Aortic pressure was 150/55. No LV gram was done. Procedure In Detail: The patient was brought to the cardiac label stamper in a fasting state, sedated with Versed and fentanyl, prepared and draped in usual sterile fashion. He had given us informed consent. Right radial approach was used. We anesthetized the skin over the right radial artery with 2 mL of 1% lidocaine. We entered the artery using a 21-gauge needle, cannulated the artery with a 0.021 inch diameter guidewire. Then, using the modified Seldinger technique, placed a 6-Romanian Iizuu radial sheath in place. The introducer and guidewire were removed and sheath was flushed. A radial cocktail was given consisting of nicardipine, heparin, and nitroglycerin. We used a TIG catheter, which was guided into the ascending aorta using a short radius J-tip Glidewire and fluoroscopy. The TIG catheter was suitable for angiogram in left and right coronary and measuring pressures in the left ventricle. At the end of the procedure when the decision was made not to attempt a stent and descending the bypass surgery, the TIG catheter was removed over a guidewire. The sheath was removed and the arteriotomy closed using a TR band. Complications From The Procedure: None. Estimated Blood Loss: 5 mL. Contrast: 106 mL of contrast were used. Acute Care Registered Nurse: Jade Smith. VISHNU/DAWIT Voice ID: [id number] Report ID: [id number] SHAWN
[2019-05-22 20:07] VITALS: O2SAT 99
[2019-05-22] MEDS: TRAZODONE 50 MG TABLET PO SCH (21:26)
[2019-05-22] MEDS: ROSUVASTATIN 10 MG TAB PO SCH (21:26)
[2019-05-22] MEDS: FAMOTIDINE 20 MG/2 ML VIAL IV SCH (21:27)
[2019-05-23] MEDS: CYANOCOBALAMIN 1,000 MCG TAB PO SCH (09:47)
[2019-05-23] MEDS: EZETIMIBE 10 MG TAB PO SCH (09:47)
[2019-05-23] MEDS: lisinopriL 5 MG TAB PO SCH (09:47)
[2019-05-23] MEDS: ASPIRIN 325 MG TAB PO SCH (09:47)
[2019-05-23] MEDS: DOCOSAHEXANOIC AC/EPA 1000 MG PO SCH (09:47)
[2019-05-23] MEDS: VITAMIN D 1000 UNIT TAB PO SCH (09:47)
[2019-05-23] MEDS: PANTOPRAZOLE 40MG TABLET PO SCH (09:47)
[2019-05-23] MEDS: FOLIC ACID 1 MG TABLET PO SCH (09:48)
[2019-05-23] MEDS: NACHLORIDE 0.45% 1,000 ML with NA BICARB 8.4% 50 MEQ IV SCH ×2 (09:50)
[2019-05-23 12:53] VITALS: BP 142/67
[2019-05-23 12:58] VITALS: TEMP 98.2
--- NOTE | 2019-05-23 14:16 | PN ---
Date of Progress Note: 05/23/2019 Mr. Varghese is 73, had come in with [id number] myocardial infarction, ventricular tachycardia, intermittent atrial fibrillation. Catheterization yesterday showed severe diagonal disease as well a s severe right coronary artery disease, ostial with multiple lesions in the RCA and different stents. He is very right dominant. The plan was to send him for surgery for RCA bypass and diagonal bypass and hopefully his atrial fibrillation and ventricular tachycardia will improve. Overnight, he has n o complaint. His wrist entry site from the catheterization is intact. He is in sinus rhythm with PA Cs. Awaiting transfer to [place]. He had been on [place] that has been held. I definitely do not r ecommend any electrophysiology intervention on him until after the catheterization done. GIO/DAWIT Voice ID: [id number] Report ID: [id number]
--- NOTE | 2019-05-23 16:44 | EKG ---
Test Date: 2018-05-20 Test Time: 19:57:35 Web Machine Tender: CELE MEASUREMENT RESULTS: Intervals: Rate: 74 NM: QRSD: 104 QT: 398 QTc: 441 [place]: P: NM: QRS: 74 T: -70 INTERPRETIVE STATEMENTS: Accelerated Junctional rhythm with frequent premature ventricular complexes ST & T wave abnormality, consider inferolateral ischemia Abnormal ECG Cardioserver Error - Incorrect date on EKG This EKG was performed on 05-20-2019 Compared to ECG 05/20/2018 19:52:37 Left bundle-branch block no longer present Prolonged QT interval no longer present ST (T wave) deviation still present Possible ischemia still present Electronically Signed On 05-23-19 16:41:19 CAR USHER by John Garber
--- NOTE | 2019-05-23 16:44 | EKG ---
Test Date: 2018-05-20 Test Time: 19:40:38 Log Data Technician: CELE MEASUREMENT RESULTS: Intervals: Rate: 73 MO: 188 QRSD: 100 QT: 404 QTc: 445 [place]: P: 50 MO: 188 QRS: 76 T: -81 INTERPRETIVE STATEMENTS: Sinus rhythm with frequent premature ventricular complexes Cannot rule out Inferior infarct, age undetermined ST & T wave abnormality, consider lateral ischemia Abnormal ECG Cardioserver Error - Incorrect date on EKG This EKG was performed on 05-20-2019 Compared to ECG 05/20/2018 19:34:42 Accelerated junctional rhythm no longer present Myocardial infarct finding still present ST (T wave) deviation still present Possible ischemia still present Electronically Signed On 05-23-19 16:41:44 SUPERVISOR PLATE FORMING by John Garber
--- NOTE | 2019-05-23 16:44 | EKG ---
Test Date: 2018-05-20 Test Time: 19:52:37 Fig Washer: CELE MEASUREMENT RESULTS: Intervals: Rate: 92 TN: QRSD: 106 QT: 398 QTc: 492 [place]: P: TN: QRS: 71 T: -76 INTERPRETIVE STATEMENTS: Accelerated Junctional rhythm with frequent premature ventricular complexes Incomplete left bundle branch block ST & T wave abnormality, consider inferolateral ischemia Prolonged QT Abnormal ECG Electronically Signed On 05-23-19 16:41:42 TALENT ASSISTANT by John Garber
--- NOTE | 2019-05-23 16:44 | EKG ---
Test Date: 2018-05-20 Test Time: 19:34:42 Cake Puller: CELE MEASUREMENT RESULTS: Intervals: Rate: 85 NV: QRSD: 106 QT: 410 QTc: 487 [place]: P: NV: QRS: 78 T: -78 INTERPRETIVE STATEMENTS: Accelerated Junctional rhythm with frequent premature ventricular complexes Cannot rule out Inferior infarct, age undetermined ST & T wave abnormality, consider lateral ischemia Abnormal ECG Cardioserver Error - Incorrect date on EKG This EKG was performed on 05-20-2019 Compared to ECG 12/04/2015 08:38:51 Accelerated junctional rhythm now present Ventricular premature complex(es) now present Myocardial infarct finding now present ST (T wave) deviation now present Possible ischemia now present Sinus bradycardia no longer present Electronically Signed On 05-23-19 16:41:44 TELEPHONE PLANT POWER OPERATOR by John Garber
--- NOTE | 2019-05-24 04:28 | DS ---
Date of Discharge: 05/23/2019 Consultants: Dr. Mann and Dr. Garber with Cardiology. Procedures: On 05/22/2019, cardiac catheterization with multivessel disease, recommending CT surgery. Code Status: Full Admitting Diagnoses: 1. Ventricular tachyarrhythmia. 2. Atrial fibrillation. 3. Qeb-QU-opktktvps myocardial infarction. 4. Benign prostatic hyperplasia without outflow obstruction. 5. Carotid artery atherosclerosis. 6. Essential hypertension. 7. Nicotine dependence with cigarette smoking. 8. Peripheral arterial disease. 9. Mixed hyperlipidemia. 10. Renal artery stenosis, status post stent. 11. Carotid artery disease, status post stent. Discharge Diagnoses: 1. Gqf-[id number]-wyxgsdzqj myocardial infarction, status post heart catheterization, going for coronary artery bypass graft at [facility]. 2. Ventricular tachyarrhythmia, likely ischemia induced, on amiodarone. 3. Chronic renal insufficiency. 4. Elevated BNP, history of congestive heart failure, diastolic dysfunction. 5. Mixed hyperlipidemia. 6. Peripheral arterial disease. 7. Insomnia. 8. Carotid artery disease, status post stent. 9. Renal artery stenosis, status post stent. 10. Nicotine dependence with cigarette smoking, counseled. 11. Atrial fibrillation, on Eliquis. Hospital Course: Patient is a 73-year-old male, came into the hospital for chest pain. Patient has extensive cardiac history, usually goes to [facility]. Patient was found to be in atrial fibrillation and was scheduled for an ablation; however, came in with chest pain. Patient was admitted to the hospital. He had persistent ventricular tachyarrhythmia. He was started on amiodarone. Patient converted to sinus elbert. His cardiac enzymes were elevated. He was considered to have NSTEMI. He was taken for heart catheterization by Dr. Mann. He was found to have multivessel disease and will likely require coronary artery bypass graft, for which he needs to be transferred to [facility]. His kidney function also elevated currently around his baseline of 2. Follows with Dr. Morales, who is his system dispatcher. He did receive Mucomyst before and after the heart catheterization. At this point, the benefits outweigh the risks for heart catheterization. Patient understood the risks and benefits. Patient was then transferred to [facility]. His pain got significantly better. His condition is stable. Diet: Heart healthy. Activity: As tolerated. Physical Examination: General: Awake, alert, oriented x3. Elderly male. CV: S1, S2. Respiratory: Moving air well bilaterally. No wheezing. Gastrointestinal: Abdomen is soft, nontender, nondistended. Positive bowel sounds. Extremities: No clubbing, cyanosis, edema. Neurologic: Nonfocal. Total time spent discharging the patient was 35 minutes. /DAWIT Voice ID: [id number] Report ID: [id number] MTDD
== END 2019-05-23 12:00 | disposition short-term general hospital (02) | DRG 281 ==
LOC: ER 19:22 → ERHOLD 22:07 → 3RD-ICU 05-21 02:16 → OBSVTOIN 05-21 14:26
PROVIDERS: ADMIT Hospitalist; ATTEND Hospitalist
PROC: 4A023N7 Measurement of Cardiac Sampling and Pressure, Left Heart, Percutaneous Approach (ICD-10-PCS; principal; 2019-05-22)
PROC: B205YZZ Plain Radiography of Left Heart using Other Contrast (ICD-10-PCS; 2019-05-22)
PROC: B201YZZ Plain Radiography of Multiple Coronary Arteries using Other Contrast (ICD-10-PCS; 2019-05-22)
DX: I21.4 Non-ST elevation (NSTEMI) myocardial infarction (principal); I47.2 Ventricular tachycardia; I13.0 Hypertensive heart and chronic kidney disease with heart failure and stage 1 through stage 4 chronic kidney disease, or unspecified chronic kidney disease; I50.32 Chronic diastolic (congestive) heart failure; I25.10 Atherosclerotic heart disease of native coronary artery without angina pectoris; I10 Essential (primary) hypertension; N40.0 Benign prostatic hyperplasia without lower urinary tract symptoms; I65.29 Occlusion and stenosis of unspecified carotid artery; I70.1 Atherosclerosis of renal artery; I48.91 Unspecified atrial fibrillation; N18.9 Chronic kidney disease, unspecified; E78.2 Mixed hyperlipidemia; I73.9 Peripheral vascular disease, unspecified; Z95.5 Presence of coronary angioplasty implant and graft; Z86.73 Personal history of transient ischemic attack (TIA), and cerebral infarction without residual deficits; F17.210 Nicotine dependence, cigarettes, uncomplicated
CPT/HCPCS: 36415; 71045; 80048; 80061; 80076; 83690; 83735; 83880; 84436; 84439; 84443; 84484; 85025; 85610; 93005; 93306; 93458; 96365; 96368; 99285; C1893; G0378; J0282; J0583; J1644; J1650; J2250; J3010; J3475; J7060

== ENCOUNTER 2019-06-29 05:24 | Inpatient (IN) | payer OTHER ==
--- OUTSIDE RECORDS SUMMARY | 2019-06-29 05:38 | XMS REPORT ---
:1945 [facility] Address [address] [place] [address] [address]. [address] [place] [address] Care Team Providers Name Role Phone LILLIANA OREILLY Unavailable Unavailable ANNMARIE PETER Unavailable Unavailable Problems This patient has no known problems. Allergies, Adverse Reactions, Alerts This patient has no known allergies or adverse reactions. Medications This patient has no known medications. Results Test Description Test Time Test Comments Text Results Atomic Results Result Comments RAD, CHEST, 1 2019-06-24 10:50:00 Reason for exam:->s/p FINAL REPORT PATIENT ID: VIEW, NON DEPT ACBShould this be [id number] TECHNIQUE: performed at the Frontal view of the chest. bedside?->Yes INDICATION: s/p ACB COMPARISON:Prior day. IMPRESSION:Lines and hardware: Stable.Heart and mediastinum: Stable.Lungs and pleura: No focal airspace consolidation. Right basilar atelectasis with small pleural effusion. Pulmonary vascular congestion with interstitial edema. No pneumothorax.Soft tissues and bones: No acute abnormality. Signed: Bolivar Miranda MDReport Verified Date/Time: 06/24/2019 10:50:49 Reading Location: [address] Consult Reading Room C METABOLIC PANEL 2019-06-24 06:59:00 Test Item Value Reference Range Comments SODIUM (BEAKER) (test 135 meq/L 136-145 pnri=167) POTASSIUM (BEAKER) (test 4.5 meq/L 3.5-5.1 ugiw=064) CHLORIDE (BEAKER) (test 108 meq/L 98-107 ilhf=877) CO2 (BEAKER) (test tmaq=984) 20 meq/L 22-29 BLOOD UREA NITROGEN (BEAKER) 45 mg/dL 7-21 (test wdlx=285) CREATININE (BEAKER) (test 3.16 mg/dL 0.57-1.25 fcsw=596) GLUCOSE RANDOM (BEAKER) 89 mg/dL 70-105 (test jkbh=205) CALCIUM (BEAKER) (test 8.2 mg/dL 8.4-10.2 vgox=692) EGFR (BEAKER) (test 20 mL/min/1.73 sq m ESTIMATED GFR IS NOT ylkc=6703) ACCURATE CREATININE CLEARANCE IN PREDICTING GLOMERULAR FILTRATION RATE. ESTIMATED GFR IS NOT APPLICABLE FOR DIALYSIS PATIENTS. Fishing Rod Mechanic ID - MARISABEL [facility] W/PLT COUNT & AUTO [id number] 05:48:00 Test Item Value Reference Range Comments WHITE BLOOD CELL COUNT (BEAKER) (test zinv=663) 4.6 K/ L 3.5-10.5 RED BLOOD CELL COUNT (BEAKER) (test ktkz=234) 2.67 M/ L 4.63-6.08 HEMOGLOBIN (BEAKER) (test ralj=113) 8.0 GM/DL 13.7-17.5 HEMATOCRIT (BEAKER) (test xkgf=193) 25.7 % 40.1-51.0 MEAN CORPUSCULAR VOLUME (BEAKER) (test vhdn=714) 96.3 fL 79.0-92.2 MEAN CORPUSCULAR HEMOGLOBIN (BEAKER) (test 30.0 pg 25.7-32.2 kzmc=412) MEAN CORPUSCULAR HEMOGLOBIN CONC (BEAKER) (test 31.1 GM/DL 32.3-36.5 kohs=683) RED CELL DISTRIBUTION WIDTH (BEAKER) (test 18.4 % 11.6-14.4 yrmx=768) PLATELET COUNT (BEAKER) (test ccyl=424) 353 K/CU MM 150-450 MEAN PLATELET VOLUME (BEAKER) (test itjg=174) 9.3 fL 9.4-12.4 NUCLEATED RED BLOOD CELLS (BEAKER) (test 0 /100 WBC 0-0 wvuj=578) NEUTROPHILS RELATIVE PERCENT (BEAKER) (test 62 % mpjb=963) LYMPHOCYTES RELATIVE PERCENT (BEAKER) (test 19 % yfii=920) MONOCYTES RELATIVE PERCENT (BEAKER) (test 10 % eqxp=328) EOSINOPHILS RELATIVE PERCENT (BEAKER) (test 8 % hsgk=936) BASOPHILS RELATIVE PERCENT (BEAKER) (test 1 % exvb=986) NEUTROPHILS ABSOLUTE COUNT (BEAKER) (test 2.83 K/ L 1.78-5.38 cqdw=036) LYMPHOCYTES ABSOLUTE COUNT (BEAKER) (test 0.88 K/ L 1.32-3.57 zdss=678) MONOCYTES ABSOLUTE COUNT (BEAKER) (test 0.47 K/ L 0.30-0.82 gude=021) EOSINOPHILS ABSOLUTE COUNT (BEAKER) (test 0.35 K/ L 0.04-0.54 pntn=270) BASOPHILS ABSOLUTE COUNT (BEAKER) (test 0.04 K/ L 0.01-0.08 tmso=124) IMMATURE GRANULOCYTES-RELATIVE PERCENT (BEAKER) 0 % 0-1 (test irpu=4338) [id number] 15:09:00 Test Item Value Reference Range Comments ACTIVATED CLOTTING TIME 340 sec Reference Range: 74-137 (BEAKER) (test xvyj=746) seconds, Baseline/TESTED AT [place] [id number] 14:51:00 Test Item Value Reference Range Comments ACTIVATED CLOTTING TIME 296 sec Reference Range: 74-137 (BEAKER) (test vzvd=937) seconds, Baseline/TESTED AT [address] [address] [id number] 14:51:00 Test Item Value Reference Range Comments ACTIVATED CLOTTING TIME 208 sec Reference Range: 74-137 (BEAKER) (test acre=172) seconds, Baseline/TESTED AT [address] [address] RAD, CHEST, 1 VIEW, NON [id number] 08:02:00Reason for exam:->s/p ACBShould this be performed at the bedside?->YesFINAL REPORT RAD, CHEST, 1 VIEW, NON DEPT INDICATION: s/p ACB COMPARISON: Prior day' s exam FINDINGS: Portable frontal view of the chest. IMPRESSION: Support Lines: Sternotomy wires and pacer device are unchanged Lungs and pleura: Interstitial edema is unchanged. Trace bilateral effusions. No pneumothorax.Heart and mediastinum: Stable contours. Stable surgical changes.Additional findings: None. Signed: Marcella Burdickeport Verified Date/Time: 06/23/2019 08:02:27 ReadingLocation: [facility] Reading Room Electronically signed by: MARCELLA BURDICK MD on 2019 08:02 AMBASIC METABOLIC [id number] 07:14:00 Test Item Value Reference Range Comments SODIUM (BEAKER) (test 136 meq/L 136-145 rwgq=348) POTASSIUM (BEAKER) (test 4.5 meq/L 3.5-5.1 Specimen slightly vvco=225) hemolyzed CHLORIDE (BEAKER) (test 109 meq/L 98-107 ozte=908) CO2 (BEAKER) (test 19 meq/L 22-29 rhal=698) BLOOD UREA NITROGEN 50 mg/dL 7-21 (BEAKER) (test zinb=962) CREATININE (BEAKER) (test 3.37 mg/dL 0.57-1.25 Specimen slightly kpcs=884) hemolyzed GLUCOSE RANDOM (BEAKER) 83 mg/dL 70-105 (test rnot=137) CALCIUM (BEAKER) (test 8.1 mg/dL 8.4-10.2 ychz=807) EGFR (BEAKER) (test 18 mL/min/1.73 sq m ESTIMATED GFR IS NOT fbee=9073) ACCURATE CREATININE CLEARANCE IN PREDICTING GLOMERULAR FILTRATION RATE. ESTIMATED GFR IS NOT APPLICABLE FOR DIALYSIS PATIENTS. Fishing Rod Mechanic ID - MARISABEL [id number] 07:06:00 Test Item Value Reference Range Comments MAGNESIUM (BEAKER) (test 1.8 mg/dL 1.6-2.6 Specimen slightly hemolyzed fznk=944) Fishing Rod Mechanic ID - MARISABEL [id number] 07:06:00 Test Item Value Reference Range Comments PHOSPHORUS (BEAKER) (test 4.2 mg/dL 2.3-4.7 Specimen slightly hemolyzed isia=643) Fishing Rod Mechanic ID - MARISABEL [facility] W/PLT COUNT & AUTO [id number] 05:29:00 Test Item Value Reference Range Comments WHITE BLOOD CELL COUNT (BEAKER) (test myru=786) 4.2 K/ L 3.5-10.5 RED BLOOD CELL COUNT (BEAKER) (test yiis=066) 2.64 M/ L 4.63-6.08 HEMOGLOBIN (BEAKER) (test waqc=416) 8.1 GM/DL 13.7-17.5 HEMATOCRIT (BEAKER) (test pvnk=601) 25.3 % 40.1-51.0 MEAN CORPUSCULAR VOLUME (BEAKER) (test dbyu=138) 95.8 fL 79.0-92.2 MEAN CORPUSCULAR HEMOGLOBIN (BEAKER) (test 30.7 pg 25.7-32.2 uuwe=270) MEAN CORPUSCULAR HEMOGLOBIN CONC (BEAKER) (test 32.0 GM/DL 32.3-36.5 wusr=264) RED CELL DISTRIBUTION WIDTH (BEAKER) (test 18.2 % 11.6-14.4 bbqw=394) PLATELET COUNT (BEAKER) (test abix=031) 388 K/CU MM 150-450 MEAN PLATELET VOLUME (BEAKER) (test sswh=862) 9.5 fL 9.4-12.4 NUCLEATED RED BLOOD CELLS (BEAKER) (test 0 /100 WBC 0-0 mavr=187) NEUTROPHILS RELATIVE PERCENT (BEAKER) (test 56 % zlkz=517) LYMPHOCYTES RELATIVE PERCENT (BEAKER) (test 24 % ksdi=957) MONOCYTES RELATIVE PERCENT (BEAKER) (test 11 % xmng=606) EOSINOPHILS RELATIVE PERCENT (BEAKER) (test 8 % glkk=999) BASOPHILS RELATIVE PERCENT (BEAKER) (test 1 % ixdz=534) NEUTROPHILS ABSOLUTE COUNT (BEAKER) (test 2.34 K/ L 1.78-5.38 prld=616) LYMPHOCYTES ABSOLUTE COUNT (BEAKER) (test 1.00 K/ L 1.32-3.57 zxje=937) MONOCYTES ABSOLUTE COUNT (BEAKER) (test 0.45 K/ L 0.30-0.82 uwvs=812) EOSINOPHILS ABSOLUTE COUNT (BEAKER) (test 0.35 K/ L 0.04-0.54 ghet=993) BASOPHILS ABSOLUTE COUNT (BEAKER) (test 0.03 K/ L 0.01-0.08 soew=567) IMMATURE GRANULOCYTES-RELATIVE PERCENT (BEAKER) 1 % 0-1 (test gnml=1233) RAD, CHEST, 1 VIEW, NON [id number] 07:58:00Reason for exam:->s/p ACBShould this be performed at the bedside?->YesFINAL REPORT RAD, CHEST, 1 VIEW, NON DEPT INDICATION: s/p ACB COMPARISON: Prior day' s exam FINDINGS: Portable frontal view of the chest. IMPRESSION: Support Lines: Sternotomy wires. Pacer device. Lungs and pleura: Unchanged interstitial edema and bilateral effusions. No pneumothorax.Heart and mediastinum: Stable contours. Stable surgical changes.Additional findings: None. Signed: Marcella Burdick Verified Date/Time: 06/22/2019 07:58:10 Reading Location: [facility] Radiology Reading Room BASIC METABOLIC [id number] 07:27:00 Test Item Value Reference Range Comments SODIUM (BEAKER) (test 135 meq/L 136-145 pgvy=653) POTASSIUM (BEAKER) (test 4.6 meq/L 3.5-5.1 xkdt=051) CHLORIDE (BEAKER) (test 108 meq/L 98-107 gfcp=423) CO2 (BEAKER) (test 20 meq/L 22-29 uerp=658) BLOOD UREA NITROGEN 52 mg/dL 7-21 (BEAKER) (test jodh=961) CREATININE (BEAKER) (test 3.37 mg/dL 0.57-1.25 hpzz=712) GLUCOSE RANDOM (BEAKER) 91 mg/dL 70-105 (test fkcm=604) CALCIUM (BEAKER) (test 8.3 mg/dL 8.4-10.2 ffyu=505) EGFR (BEAKER) (test 18 mL/min/1.73 sq m ESTIMATED GFR IS NOT emyl=2029) ACCURATE CREATININE CLEARANCE IN PREDICTING GLOMERULAR FILTRATION RATE. ESTIMATED GFR IS NOT APPLICABLE FOR DIALYSIS PATIENTS. Fishing Rod Mechanic ID - [id number] 07:08:00 Test Item Value Reference Range Comments PHOSPHORUS (BEAKER) (test mavm=396) 4.0 mg/dL 2.3-4.7 Fishing Rod Mechanic ID - [id number] 07:08:00 Test Item Value Reference Range Comments MAGNESIUM (BEAKER) (test ynqp=365) 2.0 mg/dL 1.6-2.6 Fishing Rod Mechanic ID - LMRAD, CHEST, 1 VIEW, NON [id number] 07:22:00Reason for exam:- >s/p ACBShould this be performed at the bedside?->YesFINAL REPORT RAD, CHEST, 1 VIEW, NON DEPT INDICATION: s/p ACB COMPARISON: Prior day's exam FINDINGS: Portable frontal view of the chest. IMPRESSION: Support Lines: A right PICC again noted to terminate in the subclavian region. Lungs and pleura: Unchanged interstitial and pleural opacities. No pneumothorax.Heart and mediastinum: Stable contours. Stable surgical changes. Stable pacer apparatus.Additional findings: None. Signed: JR Mike, Jaqueline RUIZeport Verified Date/Time: 06/21/2019 07:22:09 Reading Location: [address] Neuro Reading Room BASIC METABOLIC [id number] 06:23:00 Test Item Value Reference Range Comments SODIUM (BEAKER) (test 132 meq/L 136-145 frnh=935) POTASSIUM (BEAKER) (test 4.6 meq/L 3.5-5.1 iwod=132) CHLORIDE (BEAKER) (test 105 meq/L 98-107 iapf=504) CO2 (BEAKER) (test 19 meq/L 22-29 wrbh=094) BLOOD UREA NITROGEN 56 mg/dL 7-21 (BEAKER) (test xcnf=579) CREATININE (BEAKER) (test 3.25 mg/dL 0.57-1.25 lqci=453) GLUCOSE RANDOM (BEAKER) 99 mg/dL 70-105 (test tory=520) CALCIUM (BEAKER) (test 8.3 mg/dL 8.4-10.2 tdrb=035) EGFR (BEAKER) (test 19 mL/min/1.73 sq m ESTIMATED GFR IS NOT ghdd=9729) ACCURATE CREATININE CLEARANCE IN PREDICTING GLOMERULAR FILTRATION RATE. ESTIMATED GFR IS NOT APPLICABLE FOR DIALYSIS PATIENTS. Fishing Rod Mechanic ID - [id number] 06:18:00 Test Item Value Reference Range Comments PHOSPHORUS (BEAKER) (test bzqh=402) 4.0 mg/dL 2.3-4.7 Fishing Rod Mechanic ID - [id number] 06:18:00 Test Item Value Reference Range Comments MAGNESIUM (BEAKER) (test etyj=852) 2.0 mg/dL 1.6-2.6 Fishing Rod Mechanic ID - ASCBC W/PLT COUNT & AUTO [id number] 05:59:00 Test Item Value Reference Range Comments WHITE BLOOD CELL COUNT (BEAKER) (test xdun=337) 4.7 K/ L 3.5-10.5 RED BLOOD CELL COUNT (BEAKER) (test staa=257) 2.70 M/ L 4.63-6.08 HEMOGLOBIN (BEAKER) (test hkby=791) 8.1 GM/DL 13.7-17.5 HEMATOCRIT (BEAKER) (test hjzs=765) 25.2 % 40.1-51.0 MEAN CORPUSCULAR VOLUME (BEAKER) (test vqtb=313) 93.3 fL 79.0-92.2 MEAN CORPUSCULAR HEMOGLOBIN (BEAKER) (test 30.0 pg 25.7-32.2 rvdd=108) MEAN CORPUSCULAR HEMOGLOBIN CONC (BEAKER) (test 32.1 GM/DL 32.3-36.5 vlaw=964) RED CELL DISTRIBUTION WIDTH (BEAKER) (test 17.7 % 11.6-14.4 zijz=223) PLATELET COUNT (BEAKER) (test tdzq=949) 380 K/CU MM 150-450 MEAN PLATELET VOLUME (BEAKER) (test ghey=909) 9.7 fL 9.4-12.4 NUCLEATED RED BLOOD CELLS (BEAKER) (test 0 /100 WBC 0-0 thsh=116) NEUTROPHILS RELATIVE PERCENT (BEAKER) (test 68 % rtgi=295) LYMPHOCYTES RELATIVE PERCENT (BEAKER) (test 16 % dsnz=823) MONOCYTES RELATIVE PERCENT (BEAKER) (test 10 % cbgy=964) EOSINOPHILS RELATIVE PERCENT (BEAKER) (test 6 % yvkm=728) BASOPHILS RELATIVE PERCENT (BEAKER) (test 1 % wblq=327) NEUTROPHILS ABSOLUTE COUNT (BEAKER) (test 3.14 K/ L 1.78-5.38 mimb=479) LYMPHOCYTES ABSOLUTE COUNT (BEAKER) (test 0.75 K/ L 1.32-3.57 wctz=895) MONOCYTES ABSOLUTE COUNT (BEAKER) (test 0.45 K/ L 0.30-0.82 fmgz=680) EOSINOPHILS ABSOLUTE COUNT (BEAKER) (test 0.26 K/ L 0.04-0.54 zqrq=696) BASOPHILS ABSOLUTE COUNT (BEAKER) (test 0.03 K/ L 0.01-0.08 vedy=410) IMMATURE GRANULOCYTES-RELATIVE PERCENT (BEAKER) 0 % 0-1 (test uuqe=1349) RAD, CHEST, 1 VIEW, NON [id number] 07:56:00Reason for exam:->s/p ACBShould this be performed at the bedside?->YesFINAL REPORT RAD, CHEST, 1 VIEW, NON DEPT INDICATION: s/p ACB COMPARISON: Prior day' s exam FINDINGS: Portable frontal view of the chest. IMPRESSION: Support Lines: PICC tip overlies the brachiocephalic. Sternotomy wires and pacer device. Lungs and pleura: Interstitial edema and small bilateral effusions are not significantly changed No pneumothorax.Heart and mediastinum: Stable contours. Stable surgical changes.Additional findings: None. Signed: Marcella Burdick MDReport Verified Date/Time: 06/20/2019 07:56:57 Reading Location: [facility] Radiology Reading Room CBC W/PLT COUNT & AUTO [id number] 06:26:00 Test Item Value Reference Range Comments WHITE BLOOD CELL COUNT (BEAKER) (test lovg=676) 4.3 K/ L 3.5-10.5 RED BLOOD CELL COUNT (BEAKER) (test bldz=976) 2.48 M/ L 4.63-6.08 HEMOGLOBIN (BEAKER) (test gall=987) 7.4 GM/DL 13.7-17.5 HEMATOCRIT (BEAKER) (test shzf=049) 23.6 % 40.1-51.0 MEAN CORPUSCULAR VOLUME (BEAKER) (test lfzc=275) 95.2 fL 79.0-92.2 MEAN CORPUSCULAR HEMOGLOBIN (BEAKER) (test 29.8 pg 25.7-32.2 nwnl=961) MEAN CORPUSCULAR HEMOGLOBIN CONC (BEAKER) (test 31.4 GM/DL 32.3-36.5 evqd=697) RED CELL DISTRIBUTION WIDTH (BEAKER) (test 17.7 % 11.6-14.4 fuvn=871) PLATELET COUNT (BEAKER) (test ynnz=862) 327 K/CU MM 150-450 MEAN PLATELET VOLUME (BEAKER) (test btzw=094) 9.6 fL 9.4-12.4 NUCLEATED RED BLOOD CELLS (BEAKER) (test 0 /100 WBC 0-0 dyjz=130) NEUTROPHILS RELATIVE PERCENT (BEAKER) (test 62 % jouj=361) LYMPHOCYTES RELATIVE PERCENT (BEAKER) (test 19 % cclt=420) MONOCYTES RELATIVE PERCENT (BEAKER) (test 12 % pjss=485) EOSINOPHILS RELATIVE PERCENT (BEAKER) (test 6 % pzwf=577) BASOPHILS RELATIVE PERCENT (BEAKER) (test 1 % hunp=320) NEUTROPHILS ABSOLUTE COUNT (BEAKER) (test 2.65 K/ L 1.78-5.38 lnee=836) LYMPHOCYTES ABSOLUTE COUNT (BEAKER) (test 0.79 K/ L 1.32-3.57 etmf=489) MONOCYTES ABSOLUTE COUNT (BEAKER) (test 0.51 K/ L 0.30-0.82 tzlk=056) EOSINOPHILS ABSOLUTE COUNT (BEAKER) (test 0.27 K/ L 0.04-0.54 zsfx=780) BASOPHILS ABSOLUTE COUNT (BEAKER) (test 0.03 K/ L 0.01-0.08 ixoa=696) IMMATURE GRANULOCYTES-RELATIVE PERCENT (BEAKER) 1 % 0-1 (test jqep=0207) BASIC METABOLIC [id number] 05:59:00 Test Item Value Reference Range Comments SODIUM (BEAKER) (test 133 meq/L 136-145 kcli=971) POTASSIUM (BEAKER) (test 4.6 meq/L 3.5-5.1 ecin=453) CHLORIDE (BEAKER) (test 105 meq/L 98-107 ykoq=957) CO2 (BEAKER) (test 21 meq/L 22-29 vyzw=541) BLOOD UREA NITROGEN 55 mg/dL 7-21 (BEAKER) (test fjyg=834) CREATININE (BEAKER) (test 3.34 mg/dL 0.57-1.25 xiez=597) GLUCOSE RANDOM (BEAKER) 91 mg/dL 70-105 (test yatv=540) CALCIUM (BEAKER) (test 8.1 mg/dL 8.4-10.2 yqta=340) EGFR (BEAKER) (test 18 mL/min/1.73 sq m ESTIMATED GFR IS NOT urgg=6618) ACCURATE CREATININE CLEARANCE IN PREDICTING GLOMERULAR FILTRATION RATE. ESTIMATED GFR IS NOT APPLICABLE FOR DIALYSIS PATIENTS. Fishing Rod Mechanic ID - MARISABEL [id number] 05:56:00 Test Item Value Reference Range Comments PHOSPHORUS (BEAKER) (test obyt=447) 4.0 mg/dL 2.3-4.7 Fishing Rod Mechanic ID - MARISABEL [id number] 05:56:00 Test Item Value Reference Range Comments MAGNESIUM (BEAKER) (test xhtt=429) 2.0 mg/dL 1.6-2.6 Fishing Rod Mechanic ID - MARISABEL MRAD, CHEST, 1 VIEW, NON [id number] 08:24:00Reason for exam:->s/p ACBShould this be performed at the bedside?->YesFINAL REPORT RAD, CHEST, 1 VIEW, NON DEPT INDICATION: s/p ACB COMPARISON: Prior day's exam FINDINGS: Portable frontal view of the chest. IMPRESSION: Support Lines: PICC tip overlies the right subclavian, unchanged from prior exam. Pacer device is unchanged.Lungs and pleura: Bilateral airspace disease and interstitial edema, not significantly changed No pneumothorax.Heart andmediastinum: Stable contours. Stable surgical changes.Additional findings: None. Signed: Marcella Burdickeport Verified Date/Time: 06/19/2019 08:24:44 Reading Location: [facility] Radiology Reading Room BASIC METABOLIC [id number] 07:44:00 Test Item Value Reference Range Comments SODIUM (BEAKER) (test 131 meq/L 136-145 qyif=161) POTASSIUM (BEAKER) (test 4.5 meq/L 3.5-5.1 qrlw=611) CHLORIDE (BEAKER) (test 103 meq/L 98-107 jyea=302) CO2 (BEAKER) (test 21 meq/L 22-29 hmqy=091) BLOOD UREA NITROGEN 56 mg/dL 7-21 (BEAKER) (test cugc=112) CREATININE (BEAKER) (test 3.37 mg/dL 0.57-1.25 slmr=106) GLUCOSE RANDOM (BEAKER) 91 mg/dL 70-105 (test pxvo=908) CALCIUM (BEAKER) (test 8.1 mg/dL 8.4-10.2 ieie=062) EGFR (BEAKER) (test 18 mL/min/1.73 sq m ESTIMATED GFR IS NOT hhos=9547) ACCURATE CREATININE CLEARANCE IN PREDICTING GLOMERULAR FILTRATION RATE. ESTIMATED GFR IS NOT APPLICABLE FOR DIALYSIS PATIENTS. Fishing Rod Mechanic ID - MELLY [id number] 07:43:00 Test Item Value Reference Range Comments PHOSPHORUS (BEAKER) (test yoym=224) 4.3 mg/dL 2.3-4.7 Fishing Rod Mechanic ID - MELLY [id number] 07:43:00 Test Item Value Reference Range Comments MAGNESIUM (BEAKER) (test bmhp=598) 2.1 mg/dL 1.6-2.6 Fishing Rod Mechanic ID - MELLY FCBC W/PLT COUNT & AUTO [id number] 06:41: 00 Test Item Value Reference Range Comments WHITE BLOOD CELL COUNT (BEAKER) (test xxsg=175) 4.3 K/ L 3.5-10.5 RED BLOOD CELL COUNT (BEAKER) (test ubvp=976) 2.58 M/ L 4.63-6.08 HEMOGLOBIN (BEAKER) (test ymgx=009) 7.6 GM/DL 13.7-17.5 HEMATOCRIT (BEAKER) (test tttn=806) 24.0 % 40.1-51.0 MEAN CORPUSCULAR VOLUME (BEAKER) (test rugd=413) 93.0 fL 79.0-92.2 MEAN CORPUSCULAR HEMOGLOBIN (BEAKER) (test 29.5 pg 25.7-32.2 fqnb=668) MEAN CORPUSCULAR HEMOGLOBIN CONC (BEAKER) (test 31.7 GM/DL 32.3-36.5 wfwj=123) RED CELL DISTRIBUTION WIDTH (BEAKER) (test 17.7 % 11.6-14.4 zgjm=391) PLATELET COUNT (BEAKER) (test kqnf=701) 328 K/CU MM 150-450 MEAN PLATELET VOLUME (BEAKER) (test ywzd=755) 9.8 fL 9.4-12.4 NUCLEATED RED BLOOD CELLS (BEAKER) (test 0 /100 WBC 0-0 yvtn=815) NEUTROPHILS RELATIVE PERCENT (BEAKER) (test 60 % gxfj=864) LYMPHOCYTES RELATIVE PERCENT (BEAKER) (test 19 % houq=076) MONOCYTES RELATIVE PERCENT (BEAKER) (test 12 % efqm=264) EOSINOPHILS RELATIVE PERCENT (BEAKER) (test 7 % zmbv=452) BASOPHILS RELATIVE PERCENT (BEAKER) (test 1 % ijgd=511) NEUTROPHILS ABSOLUTE COUNT (BEAKER) (test 2.57 K/ L 1.78-5.38 drdr=897) LYMPHOCYTES ABSOLUTE COUNT (BEAKER) (test 0.83 K/ L 1.32-3.57 qboe=907) MONOCYTES ABSOLUTE COUNT (BEAKER) (test 0.53 K/ L 0.30-0.82 bxqo=830) EOSINOPHILS ABSOLUTE COUNT (BEAKER) (test 0.29 K/ L 0.04-0.54 bazr=123) BASOPHILS ABSOLUTE COUNT (BEAKER) (test 0.03 K/ L 0.01-0.08 vlpz=645) IMMATURE GRANULOCYTES-RELATIVE PERCENT (BEAKER) 1 % 0-1 (test igga=6593) OXYGEN SATURATION, [id number] 06:39:00 Test Item Value Reference Range Comments O2 SATURATION (MEASURED) (BEAKER) (test vdgb=8197) 68.6 % CALCIUM, [id number] 06:39:00 Test Item Value Reference Range Comments CALCIUM IONIZED (BEAKER) (test hyos=646) 1.13 mmol/L 1.12-1.27 PH, BLOOD (BEAKER) (test wsns=1785) 7.40 RAD, CHEST, 1 VIEW, NON [id number] 09:49:00Reason for exam:->s/p ACBShould this be performed at the bedside?->YesFINAL REPORT TECHNIQUE: Single view of the chest. COMPARISON: 06/17/2019 FINDINGS: Bilateral patchy interstitial and airspace opacities are stable. There are bilateral trace pleural effusions. No gross pneumothorax.No gross new lung parenchymal changes. Support lines and tubes are stable. IMPRESSION: 1. No significant interval change. Signed: Sarath Randhawa Verified Date/Time: 06/18/2019 09:49:04 Reading Location: [address] Reading Room BASIC METABOLIC [id number] 04:36:00 Test Item Value Reference Range Comments SODIUM (BEAKER) (test 129 meq/L 136-145 xczz=853) POTASSIUM (BEAKER) (test 4.5 meq/L 3.5-5.1 jyow=857) CHLORIDE (BEAKER) (test 101 meq/L 98-107 ddje=266) CO2 (BEAKER) (test 19 meq/L 22-29 wgxx=325) BLOOD UREA NITROGEN 51 mg/dL 7-21 (BEAKER) (test jtsk=259) CREATININE (BEAKER) (test 3.15 mg/dL 0.57-1.25 qzop=033) GLUCOSE RANDOM (BEAKER) 97 mg/dL 70-105 (test srkl=204) CALCIUM (BEAKER) (test 8.2 mg/dL 8.4-10.2 uuwf=461) EGFR (BEAKER) (test 20 mL/min/1.73 sq m ESTIMATED GFR IS NOT katc=2292) ACCURATE CREATININE CLEARANCE IN PREDICTING GLOMERULAR FILTRATION RATE. ESTIMATED GFR IS NOT APPLICABLE FOR DIALYSIS PATIENTS. Fishing Rod Mechanic ID Sharmila GRIJALVA [id number] 04:27:00 Test Item Value Reference Range Comments PHOSPHORUS (BEAKER) (test tulo=491) 4.6 mg/dL 2.3-4.7 Fishing Rod Mechanic ID - RUDI [id number] 04:27:00 Test Item Value Reference Range Comments MAGNESIUM (BEAKER) (test kjig=025) 2.2 mg/dL 1.6-2.6 Fishing Rod Mechanic ID - RUDI LOXYGEN SATURATION, [id number] 04:05:00 Test Item Value Reference Range Comments O2 SATURATION (MEASURED) (BEAKER) (test zaus=9984) 68.1 % CBC W/PLT COUNT & AUTO [id number] 04:01:00 Test Item Value Reference Range Comments WHITE BLOOD CELL COUNT (BEAKER) (test rump=203) 3.7 K/ L 3.5-10.5 RED BLOOD CELL COUNT (BEAKER) (test vjvb=382) 2.72 M/ L 4.63-6.08 HEMOGLOBIN (BEAKER) (test rpwh=295) 8.0 GM/DL 13.7-17.5 HEMATOCRIT (BEAKER) (test mjux=505) 24.9 % 40.1-51.0 MEAN CORPUSCULAR VOLUME (BEAKER) (test eyqs=765) 91.5 fL 79.0-92.2 MEAN CORPUSCULAR HEMOGLOBIN (BEAKER) (test 29.4 pg 25.7-32.2 zwyg=955) MEAN CORPUSCULAR HEMOGLOBIN CONC (BEAKER) (test 32.1 GM/DL 32.3-36.5 peoa=982) RED CELL DISTRIBUTION WIDTH (BEAKER) (test 17.3 % 11.6-14.4 poct=929) PLATELET COUNT (BEAKER) (test mphq=212) 327 K/CU MM 150-450 MEAN PLATELET VOLUME (BEAKER) (test ggtg=666) 9.4 fL 9.4-12.4 NUCLEATED RED BLOOD CELLS (BEAKER) (test 0 /100 WBC 0-0 mvix=263) NEUTROPHILS RELATIVE PERCENT (BEAKER) (test 58 % nmip=919) LYMPHOCYTES RELATIVE PERCENT (BEAKER) (test 20 % kege=678) MONOCYTES RELATIVE PERCENT (BEAKER) (test 14 % oyui=869) EOSINOPHILS RELATIVE PERCENT (BEAKER) (test 8 % fxbb=898) BASOPHILS RELATIVE PERCENT (BEAKER) (test 1 % fxmq=760) NEUTROPHILS ABSOLUTE COUNT (BEAKER) (test 2.18 K/ L 1.78-5.38 mzio=462) LYMPHOCYTES ABSOLUTE COUNT (BEAKER) (test 0.73 K/ L 1.32-3.57 xles=049) MONOCYTES ABSOLUTE COUNT (BEAKER) (test 0.52 K/ L 0.30-0.82 ppxb=952) EOSINOPHILS ABSOLUTE COUNT (BEAKER) (test 0.28 K/ L 0.04-0.54 lbfm=224) BASOPHILS ABSOLUTE COUNT (BEAKER) (test 0.02 K/ L 0.01-0.08 kyvr=613) IMMATURE GRANULOCYTES-RELATIVE PERCENT (BEAKER) 0 % 0-1 (test rfsg=0908) [id number] 00:13:00 Test Item Value Reference Range Comments POTASSIUM (BEAKER) (test hvei=586) 4.7 meq/L 3.5-5.1 Fishing Rod Mechanic ID - [id number] 00:13:00 Test Item Value Reference Range Comments MAGNESIUM (BEAKER) (test qfok=373) 2.2 mg/dL 1.6-2.6 Fishing Rod Mechanic ID - DBPOCT-GLUCOSE [id number] 21:59:00 Test Item Value Reference Range Comments POC-GLUCOSE METER (BEAKER) 104 mg/dL 70-110 : TESTED AT [facility] [address] [facility] (test ohzb=2264) [facility], [id number]: Fishing Rod Mechanic/Colorer DD=[id number] for MOHINI THURMAN POCT-GLUCOSE [id number] 18:19:00 Test Item Value Reference Range Comments POC-GLUCOSE METER (BEAKER) 125 mg/dL 70-110 : TESTED AT [facility] [address] [facility] (test rrsg=4539) [facility], [address]: Fishing Rod Mechanic/Colorer MW=[id number] for LINDA HOLLIDAY BASIC METABOLIC [id number] 14:09:00 Test Item Value Reference Range Comments SODIUM (BEAKER) (test 127 meq/L 136-145 ymtp=653) POTASSIUM (BEAKER) (test 4.6 meq/L 3.5-5.1 Specimen slightly wqrx=738) hemolyzed CHLORIDE (BEAKER) (test 99 meq/L 98-107 ylph=784) CO2 (BEAKER) (test 18 meq/L 22-29 ikrs=161) BLOOD UREA NITROGEN 56 mg/dL 7-21 (BEAKER) (test fcse=373) CREATININE (BEAKER) (test 3.18 mg/dL 0.57-1.25 Specimen slightly qlit=946) hemolyzed GLUCOSE RANDOM (BEAKER) 136 mg/dL 70-105 (test gmxd=246) CALCIUM (BEAKER) (test 8.0 mg/dL 8.4-10.2 tgws=037) EGFR (BEAKER) (test 19 mL/min/1.73 sq m ESTIMATED GFR IS NOT nmqt=8640) ACCURATE CREATININE CLEARANCE IN PREDICTING GLOMERULAR FILTRATION RATE. ESTIMATED GFR IS NOT APPLICABLE FOR DIALYSIS PATIENTS. Fishing Rod Mechanic ID - RUDI [id number] 14:07:00 Test Item Value Reference Range Comments MAGNESIUM (BEAKER) (test 2.3 mg/dL 1.6-2.6 Specimen slightly hemolyzed wtlv=879) Fishing Rod Mechanic ID - RUDI LOXYGEN SATURATION, [id number] 13:47:00 Test Item Value Reference Range Comments O2 SATURATION (MEASURED) (BEAKER) (test qoqi=9070) 55.7 % POCT-GLUCOSE [id number] 12:04:00 Test Item Value Reference Range Comments POC-GLUCOSE METER (BEAKER) 99 mg/dL 70-110 : TESTED AT [facility] [address] (test eqts=0169) [facility], [address]: Fishing Rod Mechanic/Colorer QI=[id number] for [facility] RAD, CHEST, 1 VIEW, NON [id number] 07:28:00Reason for exam:->s/p ACBShould this be performed at the bedside?->YesFINAL REPORT RAD, CHEST, 1 VIEW, NON DEPT INDICATION: s/p ACB COMPARISON: Prior day' s exam FINDINGS: Portable frontal view of the chest. IMPRESSION: Support Lines: PICC tip overlies the brachiocephalic. Pacer device is unchanged. Lungs and pleura: Bilateral airspace disease is not significantly changed compatible with multifocal edema No pneumothorax.Heart and mediastinum: Stable contours. Stable surgical changes.Additional findings: None. Signed: Marcella Burdick Verified Date/Time: 06/17/2019 07:28:33 Reading Location: [address] Neuro Reading Room OXYGEN SATURATION, [id number] 06:45:00 Test Item Value Reference Range Comments O2 SATURATION (MEASURED) (BEAKER) (test vuiq=9106) 62.2 % [id number] 04:54:00 Test Item Value Reference Range Comments CORTISOL, TOTAL (BEAKER) (test icve=1789) 14.7 ug/dL 3.7-19.4 Fishing Rod Mechanic ID - PIAYA LBASIC METABOLIC [id number] 04:52:00 Test Item Value Reference Range Comments SODIUM (BEAKER) (test 131 meq/L 136-145 htwx=174) POTASSIUM (BEAKER) (test 4.3 meq/L 3.5-5.1 lral=523) CHLORIDE (BEAKER) (test 105 meq/L 98-107 tppx=833) CO2 (BEAKER) (test 18 meq/L 22-29 jxrl=134) BLOOD UREA NITROGEN 53 mg/dL 7-21 (BEAKER) (test xumk=359) CREATININE (BEAKER) (test 2.80 mg/dL 0.57-1.25 zgao=582) GLUCOSE RANDOM (BEAKER) 114 mg/dL 70-105 (test lkxf=714) CALCIUM (BEAKER) (test 7.7 mg/dL 8.4-10.2 mdid=668) EGFR (BEAKER) (test 22 mL/min/1.73 sq m ESTIMATED GFR IS NOT jhzz=0656) ACCURATE CREATININE CLEARANCE IN PREDICTING GLOMERULAR FILTRATION RATE. ESTIMATED GFR IS NOT APPLICABLE FOR DIALYSIS PATIENTS. Fishing Rod Mechanic ID - RUDI [id number] 04:49:00 Test Item Value Reference Range Comments PHOSPHORUS (BEAKER) (test maot=097) 4.5 mg/dL 2.3-4.7 Fishing Rod Mechanic ID - RUDI [id number] 04:49:00 Test Item Value Reference Range Comments MAGNESIUM (BEAKER) (test bwxg=215) 2.0 mg/dL 1.6-2.6 Fishing Rod Mechanic ID - RUDI LLACTATE DEHYDROGENASE (LDH)2019-06-17 04:49:00 Test Item Value Reference Range Comments LACTATE DEHYDROGENASE (BEAKER) (test ojqr=639) 572 U/L 125-220 Fishing Rod Mechanic ID - RUDI LOXYGEN SATURATION, [id number] 04:37:00 Test Item Value Reference Range Comments O2 SATURATION (MEASURED) (BEAKER) (test cred=5046) 45.2 % CBC W/PLT COUNT & AUTO [id number] 04:26:00 Test Item Value Reference Range Comments WHITE BLOOD CELL COUNT (BEAKER) (test xdwh=963) 3.8 K/ L 3.5-10.5 RED BLOOD CELL COUNT (BEAKER) (test vaea=441) 2.80 M/ L 4.63-6.08 HEMOGLOBIN (BEAKER) (test nozw=926) 8.1 GM/DL 13.7-17.5 HEMATOCRIT (BEAKER) (test ofgk=816) 25.8 % 40.1-51.0 MEAN CORPUSCULAR VOLUME (BEAKER) (test wwvl=636) 92.1 fL 79.0-92.2 MEAN CORPUSCULAR HEMOGLOBIN (BEAKER) (test 28.9 pg 25.7-32.2 fame=400) MEAN CORPUSCULAR HEMOGLOBIN CONC (BEAKER) (test 31.4 GM/DL 32.3-36.5 cdlk=585) RED CELL DISTRIBUTION WIDTH (BEAKER) (test 17.1 % 11.6-14.4 ozjb=236) PLATELET COUNT (BEAKER) (test unlt=330) 310 K/CU MM 150-450 MEAN PLATELET VOLUME (BEAKER) (test tizu=076) 9.3 fL 9.4-12.4 NUCLEATED RED BLOOD CELLS (BEAKER) (test 0 /100 WBC 0-0 avhs=216) NEUTROPHILS RELATIVE PERCENT (BEAKER) (test 61 % sill=412) LYMPHOCYTES RELATIVE PERCENT (BEAKER) (test 15 % mzir=901) MONOCYTES RELATIVE PERCENT (BEAKER) (test 14 % htix=073) EOSINOPHILS RELATIVE PERCENT (BEAKER) (test 9 % ptnd=767) BASOPHILS RELATIVE PERCENT (BEAKER) (test 1 % kkgq=745) NEUTROPHILS ABSOLUTE COUNT (BEAKER) (test 2.28 K/ L 1.78-5.38 mwlv=821) LYMPHOCYTES ABSOLUTE COUNT (BEAKER) (test 0.55 K/ L 1.32-3.57 xdcc=446) MONOCYTES ABSOLUTE COUNT (BEAKER) (test 0.52 K/ L 0.30-0.82 cirz=459) EOSINOPHILS ABSOLUTE COUNT (BEAKER) (test 0.35 K/ L 0.04-0.54 ipin=966) BASOPHILS ABSOLUTE COUNT (BEAKER) (test 0.03 K/ L 0.01-0.08 mwhr=325) IMMATURE GRANULOCYTES-RELATIVE PERCENT (BEAKER) 1 % 0-1 (test ktsv=7264) POCT-GLUCOSE [id number] 22:24:00 Test Item Value Reference Range Comments POC-GLUCOSE METER (BEAKER) 109 mg/dL 70-110 : TESTED AT [facility] [address] [facility] (test rhqj=7183) [facility], [address]: Fishing Rod Mechanic/Colorer [id number] for MOHINI THURMAN [id number] 21:06:00 Test Item Value Reference Range Comments MAGNESIUM (BEAKER) (test lhgw=310) 2.1 mg/dL 1.6-2.6 Fishing Rod Mechanic [facility] [id number] 18:01:00 Test Item Value Reference Range Comments SODIUM (BEAKER) (test 129 meq/L 136-145 ondl=346) POTASSIUM (BEAKER) (test 5.0 meq/L 3.5-5.1 yjjb=698) CHLORIDE (BEAKER) (test 101 meq/L 98-107 cder=570) CO2 (BEAKER) (test 17 meq/L 22-29 pogu=864) BLOOD UREA NITROGEN 60 mg/dL 7-21 (BEAKER) (test kajp=066) CREATININE (BEAKER) (test 3.19 mg/dL 0.57-1.25 qdat=232) GLUCOSE RANDOM (BEAKER) 116 mg/dL 70-105 (test qwti=339) CALCIUM (BEAKER) (test 8.2 mg/dL 8.4-10.2 vhvu=087) EGFR (BEAKER) (test 19 mL/min/1.73 sq m ESTIMATED GFR IS NOT hnca=0080) ACCURATE CREATININE CLEARANCE IN PREDICTING GLOMERULAR FILTRATION RATE. ESTIMATED GFR IS NOT APPLICABLE FOR DIALYSIS PATIENTS. Fishing Rod Mechanic ID - DBPOCT-GLUCOSE [id number] 17:48:00 Test Item Value Reference Range Comments POC-GLUCOSE METER (BEAKER) 121 mg/dL 70-110 : Notified RN/MD: TESTED AT (test aivu=8770) [address], [address]: Fishing Rod Mechanic/Colorer [id number] for THERESA, JUANIS [id number] 14:24:00 Test Item Value Reference Range Comments POTASSIUM (BEAKER) (test niig=340) 4.8 meq/L 3.5-5.1 Fishing Rod Mechanic ID - RUDI [id number] 14:24:00 Test Item Value Reference Range Comments MAGNESIUM (BEAKER) (test kpjp=568) 2.3 mg/dL 1.6-2.6 Fishing Rod Mechanic ID - PIAYA LPOCT-GLUCOSE [id number] 13:22:00 Test Item Value Reference Range Comments POC-GLUCOSE METER (BEAKER) 103 mg/dL 70-110 : Notified RN/MD: TESTED AT (test kzbn=4325) [address], [address]: Fishing Rod Mechanic/Colorer [id number] for PHINISEE, JUANIS OXYGEN SATURATION, [id number] 13:16:00 Test Item Value Reference Range Comments O2 SATURATION (MEASURED) (BEAKER) (test yoxc=2484) 64.5 % POCT-GLUCOSE [id number] 08:19:00 Test Item Value Reference Range Comments POC-GLUCOSE METER (BEAKER) 107 mg/dL 70-110 : Notified RN/MD: TESTED AT (test hkdx=0638) [facility] [address] [facility], [address]: Fishing Rod Mechanic/Colorer RG=[id number] for JUANIS CARDENAS RAD, CHEST, 1 VIEW, NON [id number] 07:03:00Reason for exam:->s/p ACBShould this be performed at the bedside?->YesFINAL REPORT RAD, CHEST, 1 VIEW, NON DEPT INDICATION: s/p ACB COMPARISON: Prior day' s exam FINDINGS: Portable frontal view of the chest. IMPRESSION: Support Lines: Right IJ Baldwin-Allison catheter has been removed. PICC again noted to terminate in the subclavian region. Lungs and pleura: No significant change in the interstitial markings or small effusions. No pneumothorax.Heart and mediastinum: Stable contours. Stable surgical changes.Additional findings: None. Signed: JR Mckeon Robert MDReport Verified Date/Time: 06/16/2019 07:03:33 Reading Location: [facility] Radiology Reading Room OXYGEN SATURATION, [id number] 06:36:00 Test Item Value Reference Range Comments O2 SATURATION (MEASURED) (BEAKER) (test xgqr=9289) 59.7 % BASIC METABOLIC [id number] 05:38:00 Test Item Value Reference Range Comments SODIUM (BEAKER) (test 129 meq/L 136-145 nrzj=983) POTASSIUM (BEAKER) (test 4.9 meq/L 3.5-5.1 qchg=178) CHLORIDE (BEAKER) (test 102 meq/L 98-107 ghgw=061) CO2 (BEAKER) (test 20 meq/L 22-29 wycv=880) BLOOD UREA NITROGEN 61 mg/dL 7-21 (BEAKER) (test rdzd=476) CREATININE (BEAKER) (test 3.07 mg/dL 0.57-1.25 zzkf=640) GLUCOSE RANDOM (BEAKER) 105 mg/dL 70-105 (test ottu=448) CALCIUM (BEAKER) (test 8.3 mg/dL 8.4-10.2 khvq=509) EGFR (BEAKER) (test 20 mL/min/1.73 sq m ESTIMATED GFR IS NOT xkem=6602) ACCURATE CREATININE CLEARANCE IN PREDICTING GLOMERULAR FILTRATION RATE. ESTIMATED GFR IS NOT APPLICABLE FOR DIALYSIS PATIENTS. Fishing Rod Mechanic ID - FREDERICK [id number] 05:34:00 Test Item Value Reference Range Comments PHOSPHORUS (BEAKER) (test zxqa=932) 5.1 mg/dL 2.3-4.7 Fishing Rod Mechanic ID - FREDERICK [id number] 05:34:00 Test Item Value Reference Range Comments MAGNESIUM (BEAKER) (test cemt=211) 2.3 mg/dL 1.6-2.6 Fishing Rod Mechanic ID - FREDERICK WHEPATIC FUNCTION [id number] 05:34:00 Test Item Value Reference Range Comments TOTAL PROTEIN (BEAKER) (test itcp=046) 5.9 gm/dL 6.0-8.3 ALBUMIN (BEAKER) (test rfpu=1304) 2.7 g/dL 3.5-5.0 BILIRUBIN TOTAL (BEAKER) (test moyn=294) 0.7 mg/dL 0.2-1.2 BILIRUBIN DIRECT (BEAKER) (test snra=514) 0.5 mg/dL 0.1-0.5 ALKALINE PHOSPHATASE (BEAKER) (test ttan=492) 225 U/L 40-150 AST (SGOT) (BEAKER) (test wwlg=778) 46 U/L 5-34 ALT (SGPT) (BEAKER) (test kmto=115) 32 U/L 6-55 Fishing Rod Mechanic ID - FREDERICK WLACTATE DEHYDROGENASE (LDH)2019-06-16 05:34:00 Test Item Value Reference Range Comments LACTATE DEHYDROGENASE (BEAKER) (test svle=107) 678 U/L 125-220 Fishing Rod Mechanic ID - FREDERICK WCBC W/PLT COUNT & AUTO [id number] 04:56:00 Test Item Value Reference Range Comments WHITE BLOOD CELL COUNT (BEAKER) (test pkjg=625) 4.7 K/ L 3.5-10.5 RED BLOOD CELL COUNT (BEAKER) (test rdvr=335) 2.78 M/ L 4.63-6.08 HEMOGLOBIN (BEAKER) (test ysdh=345) 8.2 GM/DL 13.7-17.5 HEMATOCRIT (BEAKER) (test tzad=732) 24.8 % 40.1-51.0 MEAN CORPUSCULAR VOLUME (BEAKER) (test jmvx=721) 89.2 fL 79.0-92.2 MEAN CORPUSCULAR HEMOGLOBIN (BEAKER) (test 29.5 pg 25.7-32.2 suqg=445) MEAN CORPUSCULAR HEMOGLOBIN CONC (BEAKER) (test 33.1 GM/DL 32.3-36.5 tvrc=931) RED CELL DISTRIBUTION WIDTH (BEAKER) (test 16.9 % 11.6-14.4 tynt=039) PLATELET COUNT (BEAKER) (test tong=339) 289 K/CU MM 150-450 MEAN PLATELET VOLUME (BEAKER) (test vmiv=450) 9.7 fL 9.4-12.4 NUCLEATED RED BLOOD CELLS (BEAKER) (test 0 /100 WBC 0-0 xzix=617) NEUTROPHILS RELATIVE PERCENT (BEAKER) (test 60 % khry=253) LYMPHOCYTES RELATIVE PERCENT (BEAKER) (test 14 % qkqo=473) MONOCYTES RELATIVE PERCENT (BEAKER) (test 14 % lqif=726) EOSINOPHILS RELATIVE PERCENT (BEAKER) (test 11 % redi=849) BASOPHILS RELATIVE PERCENT (BEAKER) (test 1 % cdcf=445) NEUTROPHILS ABSOLUTE COUNT (BEAKER) (test 2.81 K/ L 1.78-5.38 qfzr=011) LYMPHOCYTES ABSOLUTE COUNT (BEAKER) (test 0.64 K/ L 1.32-3.57 fgce=262) MONOCYTES ABSOLUTE COUNT (BEAKER) (test 0.64 K/ L 0.30-0.82 kfij=989) EOSINOPHILS ABSOLUTE COUNT (BEAKER) (test 0.53 K/ L 0.04-0.54 ktnq=660) BASOPHILS ABSOLUTE COUNT (BEAKER) (test 0.03 K/ L 0.01-0.08 ovay=343) IMMATURE GRANULOCYTES-RELATIVE PERCENT (BEAKER) 1 % 0-1 (test rgcc=0025) POCT-GLUCOSE [id number] 22:51:00 Test Item Value Reference Range Comments POC-GLUCOSE METER (BEAKER) 104 mg/dL 70-110 : TESTED AT [facility] [address] [facility] (test ldiz=9685) [facility], [address]: Fishing Rod Mechanic/Colorer MJ=[id number] for PRINCESS ERICH YUN [id number] 22:17:00 Test Item Value Reference Range Comments MAGNESIUM (BEAKER) (test kbps=251) 2.3 mg/dL 1.6-2.6 Fishing Rod Mechanic ID - DBBASIC METABOLIC [id number] 18:29:00 Test Item Value Reference Range Comments SODIUM (BEAKER) (test 129 meq/L 136-145 iarr=364) POTASSIUM (BEAKER) (test 4.7 meq/L 3.5-5.1 kmww=498) CHLORIDE (BEAKER) (test 101 meq/L 98-107 klzc=237) CO2 (BEAKER) (test 20 meq/L 22-29 qyzh=032) BLOOD UREA NITROGEN 58 mg/dL 7-21 (BEAKER) (test iztq=212) CREATININE (BEAKER) (test 3.21 mg/dL 0.57-1.25 vqid=964) GLUCOSE RANDOM (BEAKER) 139 mg/dL 70-105 (test fquu=547) CALCIUM (BEAKER) (test 8.2 mg/dL 8.4-10.2 krez=552) EGFR (BEAKER) (test 19 mL/min/1.73 sq m ESTIMATED GFR IS NOT cmoh=1185) ACCURATE CREATININE CLEARANCE IN PREDICTING GLOMERULAR FILTRATION RATE. ESTIMATED GFR IS NOT APPLICABLE FOR DIALYSIS PATIENTS. Fishing Rod Mechanic ID - BSPOCT-GLUCOSE [id number] 18:05:00 Test Item Value Reference Range Comments POC-GLUCOSE METER (BEAKER) 137 mg/dL 70-110 : TESTED AT [facility] [address] [facility] (test tjuo=3823) [facility], [address]: Fishing Rod Mechanic/Colorer [id number] for LINDA NUÑEZ OXYGEN SATURATION, [id number] 16:00:00 Test Item Value Reference Range Comments O2 SATURATION (MEASURED) (BEAKER) (test jugc=6593) 67.3 % BASIC METABOLIC [id number] 14:25:00 Test Item Value Reference Range Comments SODIUM (BEAKER) (test 129 meq/L 136-145 ecig=535) POTASSIUM (BEAKER) (test 5.1 meq/L 3.5-5.1 dtng=604) CHLORIDE (BEAKER) (test 100 meq/L 98-107 ohfo=976) CO2 (BEAKER) (test 18 meq/L 22-29 qsuo=847) BLOOD UREA NITROGEN 61 mg/dL 7-21 (BEAKER) (test pbxo=608) CREATININE (BEAKER) (test 3.11 mg/dL 0.57-1.25 xgdz=095) GLUCOSE RANDOM (BEAKER) 104 mg/dL 70-105 (test pgds=226) CALCIUM (BEAKER) (test 8.3 mg/dL 8.4-10.2 nfbu=475) EGFR (BEAKER) (test 20 mL/min/1.73 sq m ESTIMATED GFR IS NOT vjrv=3699) ACCURATE CREATININE CLEARANCE IN PREDICTING GLOMERULAR FILTRATION RATE. ESTIMATED GFR IS NOT APPLICABLE FOR DIALYSIS PATIENTS. Fishing Rod Mechanic ID - MARISABEL [id number] 14:22:00 Test Item Value Reference Range Comments MAGNESIUM (BEAKER) (test efmr=743) 2.4 mg/dL 1.6-2.6 Fishing Rod Mechanic ID - MARISABEL MPOCT-GLUCOSE [id number] 11:45:00 Test Item Value Reference Range Comments POC-GLUCOSE METER (BEAKER) 113 mg/dL 70-110 : Notified RN/MD: TESTED AT (test uxyv=2307) [address], [address]: Fishing Rod Mechanic/Colorer [id number] for Hilliard, Angelika POCT-GLUCOSE [id number] 08:23:00 Test Item Value Reference Range Comments POC-GLUCOSE METER (BEAKER) 139 mg/dL 70-110 : Notified RN/MD: TESTED AT (test enik=7988) [place] [id number] [facility], [address]: Fishing Rod Mechanic/Colorer JK=[id number] for Hilliard, Angelika RAD, CHEST, 1 VIEW, NON [id number] 07:47:00Reason for exam:->s/p ACBShould this be performed at the bedside?->YesFINAL REPORT RAD, CHEST, 1 VIEW, NON DEPT INDICATION: s/p ACB COMPARISON: Prior day' s exam FINDINGS: Portable frontal view of the chest. IMPRESSION: Support Lines: Right PICC again noted to terminate in the subclavian region. Remaining support hardware is stable. Lungs and pleura: Interstitial coarsening again noted without significant interval change. No pneumothorax.Heart and mediastinum : Stable contours. Stable surgical changes.Additional findings: None. Signed: JR Mckeon Robert MDReport Verified Date/Time: 06/15/2019 07:47:34 Reading Location: [facility] Radiology Reading Room CBC W/PLT COUNT & AUTO [id number] 07:12:00 Test Item Value Reference Range Comments WHITE BLOOD CELL COUNT (BEAKER) (test halp=101) 4.9 K/ L 3.5-10.5 RED BLOOD CELL COUNT (BEAKER) (test quvv=820) 2.88 M/ L 4.63-6.08 HEMOGLOBIN (BEAKER) (test nodg=991) 8.4 GM/DL 13.7-17.5 HEMATOCRIT (BEAKER) (test oure=924) 25.9 % 40.1-51.0 MEAN CORPUSCULAR VOLUME (BEAKER) (test czln=181) 89.9 fL 79.0-92.2 MEAN CORPUSCULAR HEMOGLOBIN (BEAKER) (test 29.2 pg 25.7-32.2 ctty=941) MEAN CORPUSCULAR HEMOGLOBIN CONC (BEAKER) (test 32.4 GM/DL 32.3-36.5 jwmi=546) RED CELL DISTRIBUTION WIDTH (BEAKER) (test 17.0 % 11.6-14.4 tmck=879) PLATELET COUNT (BEAKER) (test uvvl=082) 269 K/CU MM 150-450 MEAN PLATELET VOLUME (BEAKER) (test tmaj=321) 9.6 fL 9.4-12.4 NUCLEATED RED BLOOD CELLS (BEAKER) (test 0 /100 WBC 0-0 wshb=394) NEUTROPHILS RELATIVE PERCENT (BEAKER) (test 63 % lceu=278) LYMPHOCYTES RELATIVE PERCENT (BEAKER) (test 14 % ykoi=337) MONOCYTES RELATIVE PERCENT (BEAKER) (test 12 % mvzn=075) EOSINOPHILS RELATIVE PERCENT (BEAKER) (test 10 % eydj=164) BASOPHILS RELATIVE PERCENT (BEAKER) (test 0 % zfzg=033) NEUTROPHILS ABSOLUTE COUNT (BEAKER) (test 3.10 K/ L 1.78-5.38 plgh=909) LYMPHOCYTES ABSOLUTE COUNT (BEAKER) (test 0.69 K/ L 1.32-3.57 edje=790) MONOCYTES ABSOLUTE COUNT (BEAKER) (test 0.60 K/ L 0.30-0.82 onvq=430) EOSINOPHILS ABSOLUTE COUNT (BEAKER) (test 0.49 K/ L 0.04-0.54 axxg=766) BASOPHILS ABSOLUTE COUNT (BEAKER) (test 0.02 K/ L 0.01-0.08 lank=090) IMMATURE GRANULOCYTES-RELATIVE PERCENT (BEAKER) 1 % 0-1 (test xyli=6513) OXYGEN SATURATION, [id number] 05:03:00 Test Item Value Reference Range Comments O2 SATURATION (MEASURED) (BEAKER) (test twrj=7790) 55.6 % LACTATE DEHYDROGENASE (LDH)2019-06-15 05:00:00 Test Item Value Reference Range Comments LACTATE DEHYDROGENASE (BEAKER) 821 U/L 125-220 Specimen slightly hemolyzed (test xikw=232) Fishing Rod Mechanic ID - MARISABEL MBASIC METABOLIC [id number] 05:00:00 Test Item Value Reference Range Comments SODIUM (BEAKER) (test 130 meq/L 136-145 zeps=578) POTASSIUM (BEAKER) (test 5.2 meq/L 3.5-5.1 Specimen slightly jgqm=696) hemolyzed CHLORIDE (BEAKER) (test 101 meq/L 98-107 zxfl=916) CO2 (BEAKER) (test 22 meq/L 22-29 aqjr=173) BLOOD UREA NITROGEN 62 mg/dL 7-21 (BEAKER) (test mndp=843) CREATININE (BEAKER) (test 3.22 mg/dL 0.57-1.25 Specimen slightly rhkf=137) hemolyzed GLUCOSE RANDOM (BEAKER) 109 mg/dL 70-105 (test acsj=102) CALCIUM (BEAKER) (test 8.2 mg/dL 8.4-10.2 hbiz=185) EGFR (BEAKER) (test 19 mL/min/1.73 sq m ESTIMATED GFR IS NOT ulfv=2917) ACCURATE CREATININE CLEARANCE IN PREDICTING GLOMERULAR FILTRATION RATE. ESTIMATED GFR IS NOT APPLICABLE FOR DIALYSIS PATIENTS. Fishing Rod Mechanic ID - MARISABEL [id number] 04:41:00 Test Item Value Reference Range Comments MAGNESIUM (BEAKER) (test 1.9 mg/dL 1.6-2.6 Specimen slightly hemolyzed jqrb=997) Fishing Rod Mechanic ID - MARISABEL [id number] 04:41:00 Test Item Value Reference Range Comments PHOSPHORUS (BEAKER) (test 4.9 mg/dL 2.3-4.7 Specimen slightly hemolyzed cmij=105) Fishing Rod Mechanic ID - MARISABEL MPOCT-GLUCOSE [id number] 22:14:00 Test Item Value Reference Range Comments POC-GLUCOSE METER (BEAKER) 130 mg/dL 70-110 : TESTED AT [facility] [address] [facility] (test pzvq=2901) [facility], [address]: Fishing Rod Mechanic/Colorer [id number] for MOHINI THURMAN BASIC METABOLIC [id number] 19:11:00 Test Item Value Reference Range Comments SODIUM (BEAKER) (test 130 meq/L 136-145 jjsm=649) POTASSIUM (BEAKER) (test 5.1 meq/L 3.5-5.1 hucf=490) CHLORIDE (BEAKER) (test 101 meq/L 98-107 dhgk=632) CO2 (BEAKER) (test 21 meq/L 22-29 okso=963) BLOOD UREA NITROGEN 62 mg/dL 7-21 (BEAKER) (test uhbl=037) CREATININE (BEAKER) (test 3.15 mg/dL 0.57-1.25 fqrf=448) GLUCOSE RANDOM (BEAKER) 127 mg/dL 70-105 (test fsho=086) CALCIUM (BEAKER) (test 8.2 mg/dL 8.4-10.2 lgvr=007) EGFR (BEAKER) (test 20 mL/min/1.73 sq m ESTIMATED GFR IS NOT ojhn=0936) ACCURATE CREATININE CLEARANCE IN PREDICTING GLOMERULAR FILTRATION RATE. ESTIMATED GFR IS NOT APPLICABLE FOR DIALYSIS PATIENTS. Fishing Rod Mechanic ID - [id number] 19:10:00 Test Item Value Reference Range Comments MAGNESIUM (BEAKER) (test jrmy=184) 2.0 mg/dL 1.6-2.6 Fishing Rod Mechanic ID - BSPOTASSIUM-STAT [id number] 18:39:00 Test Item Value Reference Range Comments POTASSIUM (BEAKER) (test lqgc=162) 4.9 meq/L 3.6-5.5 POCT-GLUCOSE [id number] 16:49:00 Test Item Value Reference Range Comments POC-GLUCOSE METER (BEAKER) 122 mg/dL 70-110 : Notified RN/MD: TESTED AT (test vdmq=2607) [address], [address]: Fishing Rod Mechanic/Colorer [id number] for Hilliard, Angelika OXYGEN SATURATION, [id number] 16:42:00 Test Item Value Reference Range Comments O2 SATURATION (MEASURED) (BEAKER) (test sgvt=1016) 52.6 % POCT-GLUCOSE [id number] 13:23:00 Test Item Value Reference Range Comments POC-GLUCOSE METER (BEAKER) 125 mg/dL 70-110 : Notified RN/MD: TESTED AT (test soth=4418) [address], [address]: Fishing Rod Mechanic/Colorer [id number] for Hilliard, Angelika [id number] 10:57:00 Test Item Value Reference Range Comments MAGNESIUM (BEAKER) (test 2.0 mg/dL 1.6-2.6 Specimen slightly hemolyzed araj=152) Fishing Rod Mechanic ID - MELLY [id number] 10:57:00 Test Item Value Reference Range Comments POTASSIUM (BEAKER) (test 5.6 meq/L 3.5-5.1 Specimen slightly hemolyzed zbwq=418) Fishing Rod Mechanic ID - MELLY FOXYGEN SATURATION, [id number] 10:36:00 Test Item Value Reference Range Comments O2 SATURATION (MEASURED) (BEAKER) (test bspk=4971) 43.0 % POCT-GLUCOSE [id number] 08:35:00 Test Item Value Reference Range Comments POC-GLUCOSE METER (BEAKER) 107 mg/dL 70-110 : Notified RN/MD: TESTED AT (test snxz=2782) [address], [address]: Fishing Rod Mechanic/Colorer [id number] for Hilliard, Angelika RAD, CHEST, 1 VIEW, NON [id number] 07:03:00Reason for exam:->s/p ACBShould this be performed at the bedside?->YesFINAL REPORT RAD, CHEST, 1 VIEW, NON DEPT INDICATION: s/p ACB COMPARISON: Prior day' s exam FINDINGS: Portable frontal view of the chest. IMPRESSION: Support Lines: Stable. Lungs and pleura: Increasing interstitial coarsening suggesting worsening edema. No pneumothorax.Heart and mediastinum: Stable contours. Stable surgical changes.Additional findings: None. Signed: JR Mike, Jaqueline RUIZephao Verified Date/Time: 06/14/2019 07:03:26 Reading Location: [facility] Radiology Reading Room BASIC METABOLIC [id number] 04:10:00 Test Item Value Reference Range Comments SODIUM (BEAKER) (test 131 meq/L 136-145 jios=100) POTASSIUM (BEAKER) (test 5.3 meq/L 3.5-5.1 Specimen slightly uhug=947) hemolyzed CHLORIDE (BEAKER) (test 102 meq/L 98-107 ifnh=783) CO2 (BEAKER) (test 21 meq/L 22-29 wrnm=263) BLOOD UREA NITROGEN 61 mg/dL 7-21 (BEAKER) (test xnnq=140) CREATININE (BEAKER) (test 3.01 mg/dL 0.57-1.25 Specimen slightly jxaz=553) hemolyzed GLUCOSE RANDOM (BEAKER) 109 mg/dL 70-105 (test zpne=841) CALCIUM (BEAKER) (test 8.3 mg/dL 8.4-10.2 gqpk=674) EGFR (BEAKER) (test 21 mL/min/1.73 sq m ESTIMATED GFR IS NOT fjql=1239) ACCURATE CREATININE CLEARANCE IN PREDICTING GLOMERULAR FILTRATION RATE. ESTIMATED GFR IS NOT APPLICABLE FOR DIALYSIS PATIENTS. Fishing Rod Mechanic ID - MARISABEL MLACTATE DEHYDROGENASE (LDH)2019-06-14 04:10:00 Test Item Value Reference Range Comments LACTATE DEHYDROGENASE (BEAKER) 1289 U/L 125-220 Specimen slightly hemolyzed (test ruxy=358) Fishing Rod Mechanic ID - MARISABEL [id number] 03:51:00 Test Item Value Reference Range Comments MAGNESIUM (BEAKER) (test 2.0 mg/dL 1.6-2.6 Specimen slightly hemolyzed kpke=114) Fishing Rod Mechanic ID - MARISABEL [id number] 03:51:00 Test Item Value Reference Range Comments PHOSPHORUS (BEAKER) (test 4.6 mg/dL 2.3-4.7 Specimen slightly hemolyzed lltu=930) Fishing Rod Mechanic ID - MARISABEL [id number] 03:39:00 Test Item Value Reference Range Comments PARTIAL THROMBOPLASTIN TIME (BEAKER) (test 78.9 seconds 22.5-36.0 sruu=814) OXYGEN SATURATION, [id number] 03:23:00 Test Item Value Reference Range Comments O2 SATURATION (MEASURED) (BEAKER) (test mjgy=3740) 63.3 % PH, [id number] 03:23:00 Test Item Value Reference Range Comments PH VENOUS (BEAKER) (test nihd=864) 7.46 7.32-7.42 CBC W/PLT COUNT & AUTO [id number] 03:21:00 Test Item Value Reference Range Comments WHITE BLOOD CELL COUNT (BEAKER) (test sgqk=696) 5.5 K/ L 3.5-10.5 RED BLOOD CELL COUNT (BEAKER) (test xdlh=107) 2.83 M/ L 4.63-6.08 HEMOGLOBIN (BEAKER) (test gipa=003) 8.4 GM/DL 13.7-17.5 HEMATOCRIT (BEAKER) (test pphg=901) 25.4 % 40.1-51.0 MEAN CORPUSCULAR VOLUME (BEAKER) (test twvc=568) 89.8 fL 79.0-92.2 MEAN CORPUSCULAR HEMOGLOBIN (BEAKER) (test 29.7 pg 25.7-32.2 lxhc=653) MEAN CORPUSCULAR HEMOGLOBIN CONC (BEAKER) (test 33.1 GM/DL 32.3-36.5 iaru=841) RED CELL DISTRIBUTION WIDTH (BEAKER) (test 16.8 % 11.6-14.4 hpnv=987) PLATELET COUNT (BEAKER) (test phii=414) 248 K/CU MM 150-450 MEAN PLATELET VOLUME (BEAKER) (test bnwi=521) 10.1 fL 9.4-12.4 NUCLEATED RED BLOOD CELLS (BEAKER) (test 0 /100 WBC 0-0 ynbh=114) NEUTROPHILS RELATIVE PERCENT (BEAKER) (test 68 % kdwu=646) LYMPHOCYTES RELATIVE PERCENT (BEAKER) (test 13 % yrxn=704) MONOCYTES RELATIVE PERCENT (BEAKER) (test 12 % glrz=547) EOSINOPHILS RELATIVE PERCENT (BEAKER) (test 7 % rtrc=052) BASOPHILS RELATIVE PERCENT (BEAKER) (test 0 % myzm=745) NEUTROPHILS ABSOLUTE COUNT (BEAKER) (test 3.72 K/ L 1.78-5.38 iemi=311) LYMPHOCYTES ABSOLUTE COUNT (BEAKER) (test 0.70 K/ L 1.32-3.57 kttp=484) MONOCYTES ABSOLUTE COUNT (BEAKER) (test 0.65 K/ L 0.30-0.82 lsex=270) EOSINOPHILS ABSOLUTE COUNT (BEAKER) (test 0.39 K/ L 0.04-0.54 bjmt=736) BASOPHILS ABSOLUTE COUNT (BEAKER) (test 0.02 K/ L 0.01-0.08 xcbe=607) IMMATURE GRANULOCYTES-RELATIVE PERCENT (BEAKER) 1 % 0-1 (test jfds=0141) POCT-GLUCOSE [id number] 22:46:00 Test Item Value Reference Range Comments POC-GLUCOSE METER (BEAKER) 121 mg/dL 70-110 : TESTED AT [facility] [address] [facility] (test qtdv=6510) [facility], [address]: Fishing Rod Mechanic/Colorer JR=[id number] for MOHINI THURMAN [id number] 22:06:00 Test Item Value Reference Range Comments POTASSIUM (BEAKER) (test iokp=206) 5.1 meq/L 3.5-5.1 Fishing Rod Mechanic ID - [id number] 22:06:00 Test Item Value Reference Range Comments MAGNESIUM (BEAKER) (test xxaz=894) 2.0 mg/dL 1.6-2.6 Fishing Rod Mechanic ID - TANESHANBLOOD [id number] 20:00:00 Test Item Value Reference Range Comments CULTURE (BEAKER) (test xhwu=8221) No growth in 5 days BLOOD [id number] 20:00:00 Test Item Value Reference Range Comments CULTURE (BEAKER) (test sqgj=5712) No growth in 5 days OXYGEN SATURATION, [id number] 17:31:00 Test Item Value Reference Range Comments O2 SATURATION (MEASURED) (BEAKER) (test qjyx=1299) 60.1 % RAD, CHEST, 1 VIEW, NON [id number] 17:23:00Reason for exam:->MAC with PAC placementShould this be performed at the bedside?->YesFINAL REPORT Comparison: 06/13/2019 at 5:02 AM TECHNIQUE: Single view of the chest FINDINGS: Tip of right internal jugular pulmonary arterial catheter projects in the main pulmonary outflow tract. No pneumothorax. No other significant change from recent previous chest x-ray. Signed: Sarath Randhawa MDReport Verified Date/Time: 06/13/2019 17:23:22 Reading Location: [facility] Radiology Reading Room Electronically signed by: SARATH RANDHAWA M.D. on 05:23 PMPOCT-GLUCOSE [id number] 16:31:00 Test Item Value Reference Range Comments POC-GLUCOSE METER (BEAKER) 122 mg/dL 70-110 : Notified RN/MD: TESTED AT (test avjx=0342) [address], [address]: Fishing Rod Mechanic/Colorer UZ=[id number] for JUANIS CARDENAS [id number] 13:06:00 Test Item Value Reference Range Comments POTASSIUM (BEAKER) (test updv=616) 5.0 meq/L 3.5-5.1 Fishing Rod Mechanic ID - TODD [id number] 13:06:00 Test Item Value Reference Range Comments MAGNESIUM (BEAKER) (test hjwr=716) 2.1 mg/dL 1.6-2.6 Fishing Rod Mechanic ID - TODD MPOCT-GLUCOSE [id number] 12:40:00 Test Item Value Reference Range Comments POC-GLUCOSE METER (BEAKER) 100 mg/dL 70-110 : Notified RN/MD: TESTED AT (test wvxz=4292) [address], [address]: Fishing Rod Mechanic/Colorer [id number] for MARI CARDENASTY POCT-GLUCOSE [id number] 08:03:00 Test Item Value Reference Range Comments POC-GLUCOSE METER (BEAKER) 144 mg/dL 70-110 : TESTED AT [address] (test xvun=7601) [facility], [address]: Fishing Rod Mechanic/Colorer BD=[id number] for JUANIS CARDENAS RAD, CHEST, 1 VIEW, NON [id number] 07:32:00Reason for exam:->s/p ACBShould this be performed at the bedside?->YesFINAL REPORT RAD, CHEST, 1 VIEW, NON DEPT INDICATION: s/p ACB COMPARISON: Prior day' s exam FINDINGS: Portable frontal view of the chest. IMPRESSION: Support Lines: Stable. Lungs and pleura: Unchanged interstitial congestion and trace effusions. No pneumothorax.Heart and mediastinum: Stable contours. Stable surgical changes.Additional findings: None. Signed: JR Mckeon Robert MDReport Verified Date/Time: 06/13/2019 07:32:29 Reading Location: [facility] Radiology Reading Room [id number] 05:21:00 Test Item Value Reference Range Comments PARTIAL THROMBOPLASTIN TIME (BEAKER) (test 67.7 seconds 22.5-36.0 vwrc=184) BASIC METABOLIC [id number] 05:16:00 Test Item Value Reference Range Comments SODIUM (BEAKER) (test 130 meq/L 136-145 vjbi=451) POTASSIUM (BEAKER) (test 5.1 meq/L 3.5-5.1 ygaw=322) CHLORIDE (BEAKER) (test 102 meq/L 98-107 cfpp=975) CO2 (BEAKER) (test 20 meq/L 22-29 yzli=558) BLOOD UREA NITROGEN 63 mg/dL 7-21 (BEAKER) (test xvfp=750) CREATININE (BEAKER) (test 2.78 mg/dL 0.57-1.25 mnmj=754) GLUCOSE RANDOM (BEAKER) 102 mg/dL 70-105 (test uwtc=916) CALCIUM (BEAKER) (test 8.3 mg/dL 8.4-10.2 gztr=674) EGFR (BEAKER) (test 23 mL/min/1.73 sq m ESTIMATED GFR IS NOT iaur=2738) ACCURATE CREATININE CLEARANCE IN PREDICTING GLOMERULAR FILTRATION RATE. ESTIMATED GFR IS NOT APPLICABLE FOR DIALYSIS PATIENTS. Fishing Rod Mechanic ID - MARISABEL [id number] 05:15:00 Test Item Value Reference Range Comments PHOSPHORUS (BEAKER) (test vlmo=188) 3.9 mg/dL 2.3-4.7 Fishing Rod Mechanic ID - MARISABEL [id number] 05:15:00 Test Item Value Reference Range Comments MAGNESIUM (BEAKER) (test chqx=191) 2.1 mg/dL 1.6-2.6 Fishing Rod Mechanic ID - MARISABEL MLACTATE DEHYDROGENASE (LDH)2019-06-13 05:15:00 Test Item Value Reference Range Comments LACTATE DEHYDROGENASE (BEAKER) (test rzhq=071) 892 U/L 125-220 Fishing Rod Mechanic ID - MARISABEL MPH, [id number] 05:06:00 Test Item Value Reference Range Comments PH VENOUS (BEAKER) (test lnhn=379) 7.51 7.32-7.42 OXYGEN SATURATION, [id number] 05:05:00 Test Item Value Reference Range Comments O2 SATURATION (MEASURED) (BEAKER) (test uaay=3360) 72.7 % CBC (HEMOGRAM ONLY)2019-06-13 04:57:00 Test Item Value Reference Range Comments WHITE BLOOD CELL COUNT (BEAKER) (test cxvx=844) 6.0 K/ L 3.5-10.5 RED BLOOD CELL COUNT (BEAKER) (test xcsd=961) 2.63 M/ L 4.63-6.08 HEMOGLOBIN (BEAKER) (test cecs=511) 7.6 GM/DL 13.7-17.5 HEMATOCRIT (BEAKER) (test ojve=557) 23.6 % 40.1-51.0 MEAN CORPUSCULAR VOLUME (BEAKER) (test qztn=538) 89.7 fL 79.0-92.2 MEAN CORPUSCULAR HEMOGLOBIN (BEAKER) (test 28.9 pg 25.7-32.2 nitm=724) MEAN CORPUSCULAR HEMOGLOBIN CONC (BEAKER) (test 32.2 GM/DL 32.3-36.5 bneu=784) RED CELL DISTRIBUTION WIDTH (BEAKER) (test 17.2 % 11.6-14.4 ymrn=203) PLATELET COUNT (BEAKER) (test yrmd=410) 231 K/CU MM 150-450 MEAN PLATELET VOLUME (BEAKER) (test dejd=568) 10.0 fL 9.4-12.4 NUCLEATED RED BLOOD CELLS (BEAKER) (test 0 /100 WBC 0-0 gnis=288) POCT-GLUCOSE [id number] 22:12:00 Test Item Value Reference Range Comments POC-GLUCOSE METER (BEAKER) 122 mg/dL 70-110 : TESTED AT [address] (test nvir=2126) [facility], [address]: Fishing Rod Mechanic/Colorer [id number] for MOHINI THURMAN [id number] 21:20:00 Test Item Value Reference Range Comments POTASSIUM (BEAKER) (test zqen=656) 5.1 meq/L 3.5-5.1 Fishing Rod Mechanic ID - MEERA [id number] 21:20:00 Test Item Value Reference Range Comments MAGNESIUM (BEAKER) (test ckzc=479) 1.9 mg/dL 1.6-2.6 Fishing Rod Mechanic ID - MEERA EOXYGEN SATURATION, [id number] 20:50:00 Test Item Value Reference Range Comments O2 SATURATION (MEASURED) (BEAKER) (test liou=6697) 63.6 % POCT-GLUCOSE [id number] 16:20:00 Test Item Value Reference Range Comments POC-GLUCOSE METER (BEAKER) 118 mg/dL 70-110 : Notified RN/MD: TESTED AT (test wmes=1897) [address], [address]: Fishing Rod Mechanic/Colorer [id number] for Angelika Hilliard [id number] 13:31:00 Test Item Value Reference Range Comments POTASSIUM (BEAKER) (test imtp=076) 5.2 meq/L 3.5-5.1 Fishing Rod Mechanic ID - MELLY [id number] 13:31:00 Test Item Value Reference Range Comments MAGNESIUM (BEAKER) (test zvkk=127) 2.0 mg/dL 1.6-2.6 Fishing Rod Mechanic ID - MELLY FPH, [id number] 12:59:00 Test Item Value Reference Range Comments PH VENOUS (BEAKER) (test mgwr=788) 7.42 7.32-7.42 OXYGEN SATURATION, [id number] 12:58:00 Test Item Value Reference Range Comments O2 SATURATION (MEASURED) (BEAKER) (test oehr=2172) 66.3 % POCT-GLUCOSE [id number] 12:46:00 Test Item Value Reference Range Comments POC-GLUCOSE METER (BEAKER) 145 mg/dL 70-110 : Notified RN/MD: TESTED AT (test yoaf=2263) [facility] [address] [facility], [address]: Fishing Rod Mechanic/Colorer [id number] for HilliardChandanaAngelika POCT-GLUCOSE [id number] 08:16:00 Test Item Value Reference Range Comments POC-GLUCOSE METER (BEAKER) 101 mg/dL 70-110 : Notified RN/MD: TESTED AT (test aomn=3752) [place] [id number] [facility], [address]: Fishing Rod Mechanic/Colorer KT=[id number] for Hilliard, Angelika RAD, CHEST, 1 VIEW, NON [id number] 07:44:00Reason for exam:->s/p ACBShould this be performed at the bedside?->YesFINAL REPORT RAD, CHEST, 1 VIEW, NON DEPT INDICATION: s/p ACB COMPARISON: Prior day' s exam FINDINGS: Portable frontal view of the chest. IMPRESSION: Limited by exclusion of theleft costophrenic sulcus.Support Lines: Right IJ sheath has been removed. Remaining support hardwareis stable. Lungs and pleura: Mild interstitial congestion. Trace effusions. No pneumothorax.Heart and mediastinum : Stable contours. Stable surgical changes.Additional findings: None. Signed: JR Mckeon Robert MDReport Verified Date/Time: 06/12/2019 07:44:25 Reading Location: [facility] Radiology Reading Room OXYGEN SATURATION, [id number] 05:16:00 Test Item Value Reference Range Comments O2 SATURATION (MEASURED) (BEAKER) (test dlls=3144) 70.8 % [id number] 04:55:00 Test Item Value Reference Range Comments PARTIAL THROMBOPLASTIN TIME (BEAKER) (test 86.6 seconds 22.5-36.0 omfw=475) BASIC METABOLIC [id number] 04:54:00 Test Item Value Reference Range Comments SODIUM (BEAKER) (test 129 meq/L 136-145 lhet=752) POTASSIUM (BEAKER) (test 5.2 meq/L 3.5-5.1 rzrf=052) CHLORIDE (BEAKER) (test 100 meq/L 98-107 pgqz=425) CO2 (BEAKER) (test 22 meq/L 22-29 mjgh=352) BLOOD UREA NITROGEN 68 mg/dL 7-21 (BEAKER) (test vmwz=226) CREATININE (BEAKER) (test 2.79 mg/dL 0.57-1.25 axtx=607) GLUCOSE RANDOM (BEAKER) 109 mg/dL 70-105 (test rrez=736) CALCIUM (BEAKER) (test 8.1 mg/dL 8.4-10.2 fasq=766) EGFR (BEAKER) (test 23 mL/min/1.73 sq m ESTIMATED GFR IS NOT ibpy=3249) ACCURATE CREATININE CLEARANCE IN PREDICTING GLOMERULAR FILTRATION RATE. ESTIMATED GFR IS NOT APPLICABLE FOR DIALYSIS PATIENTS. Fishing Rod Mechanic ID - FREDERICK [id number] 04:47:00 Test Item Value Reference Range Comments PHOSPHORUS (BEAKER) (test auni=795) 4.2 mg/dL 2.3-4.7 Fishing Rod Mechanic ID - FREDERICK [id number] 04:47:00 Test Item Value Reference Range Comments MAGNESIUM (BEAKER) (test zwgd=990) 2.1 mg/dL 1.6-2.6 Fishing Rod Mechanic ID - FREDERICK WLACTATE DEHYDROGENASE (LDH)2019-06-12 04:47:00 Test Item Value Reference Range Comments LACTATE DEHYDROGENASE (BEAKER) (test onpl=364) 943 U/L 125-220 Fishing Rod Mechanic ID - FREDERICK WCBC (HEMOGRAM ONLY)2019-06-12 04:28:00 Test Item Value Reference Range Comments WHITE BLOOD CELL COUNT (BEAKER) (test oqji=033) 5.7 K/ L 3.5-10.5 RED BLOOD CELL COUNT (BEAKER) (test xcrx=642) 2.60 M/ L 4.63-6.08 HEMOGLOBIN (BEAKER) (test rlbp=352) 7.6 GM/DL 13.7-17.5 HEMATOCRIT (BEAKER) (test fbuo=713) 23.0 % 40.1-51.0 MEAN CORPUSCULAR VOLUME (BEAKER) (test pzlc=368) 88.5 fL 79.0-92.2 MEAN CORPUSCULAR HEMOGLOBIN (BEAKER) (test 29.2 pg 25.7-32.2 xigc=364) MEAN CORPUSCULAR HEMOGLOBIN CONC (BEAKER) (test 33.0 GM/DL 32.3-36.5 upxj=226) RED CELL DISTRIBUTION WIDTH (BEAKER) (test 17.0 % 11.6-14.4 cafz=058) PLATELET COUNT (BEAKER) (test vuzg=016) 215 K/CU MM 150-450 MEAN PLATELET VOLUME (BEAKER) (test fywu=143) 10.2 fL 9.4-12.4 NUCLEATED RED BLOOD CELLS (BEAKER) (test 0 /100 WBC 0-0 ddak=468) [id number] 22:34:00 Test Item Value Reference Range Comments POTASSIUM (BEAKER) (test puhq=935) 5.0 meq/L 3.5-5.1 Fishing Rod Mechanic ID - MARIBEL [id number] 22:34:00 Test Item Value Reference Range Comments MAGNESIUM (BEAKER) (test tojo=303) 2.1 mg/dL 1.6-2.6 Fishing Rod Mechanic ID - MARIBEL WPOCT-GLUCOSE [id number] 18:38:00 Test Item Value Reference Range Comments POC-GLUCOSE METER (BEAKER) 150 mg/dL 70-110 : TESTED AT [facility] [address] [facility] (test ijcs=5153) [facility], [address]: Fishing Rod Mechanic/Colorer PE=[id number] for LINDA HOLLIDAY OXYGEN SATURATION, [id number] 17:20:00 Test Item Value Reference Range Comments O2 SATURATION (MEASURED) (BEAKER) (test engl=8968) 60.7 % BASIC METABOLIC [id number] 16:49:00 Test Item Value Reference Range Comments SODIUM (BEAKER) (test 127 meq/L 136-145 oblz=576) POTASSIUM (BEAKER) (test 4.9 meq/L 3.5-5.1 pkaf=923) CHLORIDE (BEAKER) (test 100 meq/L 98-107 walk=753) CO2 (BEAKER) (test 21 meq/L 22-29 xsyc=718) BLOOD UREA NITROGEN 68 mg/dL 7-21 (BEAKER) (test vuml=990) CREATININE (BEAKER) (test 2.70 mg/dL 0.57-1.25 fomj=712) GLUCOSE RANDOM (BEAKER) 134 mg/dL 70-105 (test fdxj=146) CALCIUM (BEAKER) (test 7.7 mg/dL 8.4-10.2 xqxw=523) EGFR (BEAKER) (test 23 mL/min/1.73 sq m ESTIMATED GFR IS NOT qhqq=7323) ACCURATE CREATININE CLEARANCE IN PREDICTING GLOMERULAR FILTRATION RATE. ESTIMATED GFR IS NOT APPLICABLE FOR DIALYSIS PATIENTS. Fishing Rod Mechanic ID - MARIBEL WLACTATE DEHYDROGENASE (LDH)2019-06-11 12:22:00 Test Item Value Reference Range Comments LACTATE DEHYDROGENASE (BEAKER) 1099 U/L 125-220 Specimen slightly hemolyzed (test mrle=762) Fishing Rod Mechanic ID - TOOGBASIC METABOLIC [id number] 12:22:00 Test Item Value Reference Range Comments SODIUM (BEAKER) (test 126 meq/L 136-145 mlql=996) POTASSIUM (BEAKER) (test 5.4 meq/L 3.5-5.1 Specimen slightly hnkq=924) hemolyzed CHLORIDE (BEAKER) (test 99 meq/L 98-107 tklj=559) CO2 (BEAKER) (test 18 meq/L 22-29 klyt=883) BLOOD UREA NITROGEN 70 mg/dL 7-21 (BEAKER) (test trvv=461) CREATININE (BEAKER) (test 2.82 mg/dL 0.57-1.25 Specimen slightly vjhk=981) hemolyzed GLUCOSE RANDOM (BEAKER) 107 mg/dL 70-105 (test mzjy=720) CALCIUM (BEAKER) (test 8.2 mg/dL 8.4-10.2 xjpc=047) EGFR (BEAKER) (test 22 mL/min/1.73 sq m ESTIMATED GFR IS NOT zjcv=4220) ACCURATE CREATININE CLEARANCE IN PREDICTING GLOMERULAR FILTRATION RATE. ESTIMATED GFR IS NOT APPLICABLE FOR DIALYSIS PATIENTS. Fishing Rod Mechanic ID - TOOGPOCT-GLUCOSE [id number] 12:01:00 Test Item Value Reference Range Comments POC-GLUCOSE METER (BEAKER) 97 mg/dL 70-110 : TESTED AT [facility] [address] (test hpmo=1969) [facility], [address]: Fishing Rod Mechanic/Colorer UK=[id number] for LINDA HOLLIDAY CBC (HEMOGRAM ONLY)2019-06-11 11:40:00 Test Item Value Reference Range Comments WHITE BLOOD CELL COUNT (BEAKER) (test vdjy=150) 7.6 K/ L 3.5-10.5 RED BLOOD CELL COUNT (BEAKER) (test xxxq=008) 2.70 M/ L 4.63-6.08 HEMOGLOBIN (BEAKER) (test bhkq=797) 7.9 GM/DL 13.7-17.5 HEMATOCRIT (BEAKER) (test jfyq=754) 23.7 % 40.1-51.0 MEAN CORPUSCULAR VOLUME (BEAKER) (test nsxt=113) 87.8 fL 79.0-92.2 MEAN CORPUSCULAR HEMOGLOBIN (BEAKER) (test 29.3 pg 25.7-32.2 rupu=101) MEAN CORPUSCULAR HEMOGLOBIN CONC (BEAKER) (test 33.3 GM/DL 32.3-36.5 bqap=881) RED CELL DISTRIBUTION WIDTH (BEAKER) (test 16.9 % 11.6-14.4 irol=325) PLATELET COUNT (BEAKER) (test lfjw=472) 210 K/CU MM 150-450 MEAN PLATELET VOLUME (BEAKER) (test dkqf=070) 10.0 fL 9.4-12.4 NUCLEATED RED BLOOD CELLS (BEAKER) (test 0 /100 WBC 0-0 fatl=932) POCT-GLUCOSE [id number] 07:41:00 Test Item Value Reference Range Comments POC-GLUCOSE METER (BEAKER) 118 mg/dL 70-110 : TESTED AT [address] (test uepq=1303) [facility], [address]: Fishing Rod Mechanic/Colorer GB=[id number] for LINDA HOLLIDAY RAD, CHEST, 1 VIEW, NON [id number] 06:30:00Reason for exam:->s/p ACBShould this be performed at the bedside?->YesFINAL REPORT RAD, CHEST, 1 VIEW, NON DEPT INDICATION: s/p ACB COMPARISON: Prior day' s exam FINDINGS: Portable frontal view of the chest. IMPRESSION: Support Lines: Stable. Lungs and pleura: Interval decreased layering right pleural effusion with residual bibasilar patchy airspace opacities and scattered interstitial opacities. No pneumothorax.Heart and mediastinum: Stable contours. Stable surgical changes.Additional findings: None. Signed: Lilliana Tejeda MDReport Verified Date/Time: 06/11/2019 06:30:25 OXYGEN SATURATION, [id number] 06:19:00 Test Item Value Reference Range Comments O2 SATURATION (MEASURED) (BEAKER) (test fyar=7397) 63.9 % [id number] 05:08:00 Test Item Value Reference Range Comments PHOSPHORUS (BEAKER) (test qvyl=545) 4.4 mg/dL 2.3-4.7 Fishing Rod Mechanic ID - FREDERICK WLACTATE DEHYDROGENASE (LDH)2019-06-11 05:08:00 Test Item Value Reference Range Comments LACTATE DEHYDROGENASE (BEAKER) (test cylo=911) 908 U/L 125-220 Fishing Rod Mechanic ID - FREDERICK [id number] 05:07:00 Test Item Value Reference Range Comments PARTIAL THROMBOPLASTIN TIME (BEAKER) (test 80.3 seconds 22.5-36.0 jjuf=965) POCT-GLUCOSE [id number] 00:38:00 Test Item Value Reference Range Comments POC-GLUCOSE METER (BEAKER) 127 mg/dL 70-110 : TESTED AT [facility] [address] [place] [address] (test weld=3136) [facility], [address]: Fishing Rod Mechanic/Colorer [id number] for OMSAR MEADOWS BASIC METABOLIC [id number] 19:03:00 Test Item Value Reference Range Comments SODIUM (BEAKER) (test 128 meq/L 136-145 rrdh=686) POTASSIUM (BEAKER) (test 4.9 meq/L 3.5-5.1 lhjf=337) CHLORIDE (BEAKER) (test 98 meq/L 98-107 crbs=320) CO2 (BEAKER) (test 21 meq/L 22-29 dgsc=528) BLOOD UREA NITROGEN 73 mg/dL 7-21 (BEAKER) (test sijm=984) CREATININE (BEAKER) (test 2.92 mg/dL 0.57-1.25 nngf=715) GLUCOSE RANDOM (BEAKER) 119 mg/dL 70-105 (test cogg=086) CALCIUM (BEAKER) (test 8.5 mg/dL 8.4-10.2 frvo=656) EGFR (BEAKER) (test 21 mL/min/1.73 sq m ESTIMATED GFR IS NOT ajwf=9429) ACCURATE CREATININE CLEARANCE IN PREDICTING GLOMERULAR FILTRATION RATE. ESTIMATED GFR IS NOT APPLICABLE FOR DIALYSIS PATIENTS. Fishing Rod Mechanic ID - MARISABEL [id number] 18:42:00 Test Item Value Reference Range Comments MAGNESIUM (BEAKER) (test mrwv=491) 2.4 mg/dL 1.6-2.6 Fishing Rod Mechanic ID - MARISABEL MLACTATE DEHYDROGENASE (LDH)2019-06-10 18:42:00 Test Item Value Reference Range Comments LACTATE DEHYDROGENASE (BEAKER) (test znxt=135) 1075 U/L 125-220 Fishing Rod Mechanic ID - MARISABEL MOXYGEN SATURATION, [id number] 18:05:00 Test Item Value Reference Range Comments O2 SATURATION (MEASURED) (BEAKER) (test wznr=1062) 57.4 % CBC (HEMOGRAM ONLY)2019-06-10 16:33:00 Test Item Value Reference Range Comments WHITE BLOOD CELL COUNT (BEAKER) (test hjau=890) 9.9 K/ L 3.5-10.5 RED BLOOD CELL COUNT (BEAKER) (test bvxv=778) 2.71 M/ L 4.63-6.08 HEMOGLOBIN (BEAKER) (test jnlp=649) 7.9 GM/DL 13.7-17.5 HEMATOCRIT (BEAKER) (test ithl=271) 23.7 % 40.1-51.0 MEAN CORPUSCULAR VOLUME (BEAKER) (test ylti=207) 87.5 fL 79.0-92.2 MEAN CORPUSCULAR HEMOGLOBIN (BEAKER) (test 29.2 pg 25.7-32.2 qhrf=770) MEAN CORPUSCULAR HEMOGLOBIN CONC (BEAKER) (test 33.3 GM/DL 32.3-36.5 amvh=631) RED CELL DISTRIBUTION WIDTH (BEAKER) (test 16.8 % 11.6-14.4 vyba=233) PLATELET COUNT (BEAKER) (test nwdy=924) 197 K/CU MM 150-450 MEAN PLATELET VOLUME (BEAKER) (test ryqf=137) 9.9 fL 9.4-12.4 NUCLEATED RED BLOOD CELLS (BEAKER) (test 0 /100 WBC 0-0 karj=067) POCT-GLUCOSE [id number] 10:47:00 Test Item Value Reference Range Comments POC-GLUCOSE METER (BEAKER) 113 mg/dL 70-110 : TESTED AT [facility] [address] (test scox=3012) [facility], [address]: Fishing Rod Mechanic/Colorer KN=[id number] for GENARO VÁZQUEZ, CHEST, 1 VIEW, NON [id number] 08:41:00Reason for exam:->s/p ACBShould this be performed at the bedside?->YesFINAL REPORT Portable chest. CLINICAL HISTORY: s/p ACB. COMPARISON STUDY: Chest x- ray from yesterday. FINDINGS: The cardiac silhouette is enlarged. Sternotomy wires are seen. An atrial appendage occlusion device is again seen. The pulmonary parenchyma demonstrates pulmonary venous congestion and increased interstitial markings with atelectasis or consolidation in the right lungbase and a small right pleural effusion. The support lines and tubes are unchanged. No pneumothorax is seen. Degenerative changes are noted. IMPRESSION: Mild worsening of opacity in the right lung base. No other significant change. Signed : Ellen Roper MDReport Verified Date/Time: 06/10/2019 08:41:34 Reading Location: [address] Ortho Consult Reading Room RAD, ABDOMEN/KUB, 1 VIEW [id number] 07:43:00Reason for exam:->abdominal pain.FINAL REPORT Abdomen. HISTORY: Abdominal pain. COMPARISON STUDY: June 09, 2019. FINDINGS: Two supine views of the abdomen demonstrates gas-filled nondistended loops of large and small bowel. No gas is seen in the rectum. Degenerative changes are seen. This film is insensitivefor the detection of free air. IMPRESSION: Gas-filled nondistended loops of bowel, similar to previous. Signed : Ellen Roper MDReport Verified Date/Time: 06/10/2019 07:43:03 Reading Location: [address] Ortho Consult Reading Room BASIC METABOLIC [id number] 06: 11:00 Test Item Value Reference Range Comments SODIUM (BEAKER) (test 126 meq/L 136-145 yynd=775) POTASSIUM (BEAKER) (test 4.8 meq/L 3.5-5.1 tdsr=340) CHLORIDE (BEAKER) (test 96 meq/L 98-107 dyfz=965) CO2 (BEAKER) (test 20 meq/L 22-29 xcmn=175) BLOOD UREA NITROGEN 75 mg/dL 7-21 (BEAKER) (test gblk=453) CREATININE (BEAKER) (test 3.07 mg/dL 0.57-1.25 fywy=715) GLUCOSE RANDOM (BEAKER) 110 mg/dL 70-105 (test edek=472) CALCIUM (BEAKER) (test 8.2 mg/dL 8.4-10.2 easv=662) EGFR (BEAKER) (test 20 mL/min/1.73 sq m ESTIMATED GFR IS NOT zrfr=8646) ACCURATE CREATININE CLEARANCE IN PREDICTING GLOMERULAR FILTRATION RATE. ESTIMATED GFR IS NOT APPLICABLE FOR DIALYSIS PATIENTS. Fishing Rod Mechanic ID - MARISABEL [id number] 06:06:00 Test Item Value Reference Range Comments MAGNESIUM (BEAKER) (test ouvl=100) 2.3 mg/dL 1.6-2.6 Fishing Rod Mechanic ID - MARISABEL [id number] 05:51:00 Test Item Value Reference Range Comments PARTIAL THROMBOPLASTIN TIME (BEAKER) (test 84.1 seconds 22.5-36.0 nqsn=946) CBC (HEMOGRAM ONLY)2019-06-10 05:45:00 Test Item Value Reference Range Comments WHITE BLOOD CELL COUNT (BEAKER) (test vzpm=121) 13.0 K/ L 3.5-10.5 RED BLOOD CELL COUNT (BEAKER) (test ibei=964) 2.73 M/ L 4.63-6.08 HEMOGLOBIN (BEAKER) (test qicx=237) 8.0 GM/DL 13.7-17.5 HEMATOCRIT (BEAKER) (test yeoe=267) 24.1 % 40.1-51.0 MEAN CORPUSCULAR VOLUME (BEAKER) (test swes=734) 88.3 fL 79.0-92.2 MEAN CORPUSCULAR HEMOGLOBIN (BEAKER) (test 29.3 pg 25.7-32.2 qlwt=233) MEAN CORPUSCULAR HEMOGLOBIN CONC (BEAKER) (test 33.2 GM/DL 32.3-36.5 ucev=105) RED CELL DISTRIBUTION WIDTH (BEAKER) (test 16.6 % 11.6-14.4 netj=246) PLATELET COUNT (BEAKER) (test mfib=841) 203 K/CU MM 150-450 MEAN PLATELET VOLUME (BEAKER) (test xrlk=922) 9.9 fL 9.4-12.4 NUCLEATED RED BLOOD CELLS (BEAKER) (test 0 /100 WBC 0-0 tvgg=364) OXYGEN SATURATION, [id number] 05:08:00 Test Item Value Reference Range Comments O2 SATURATION (MEASURED) (BEAKER) (test nlbz=9168) 74.4 % [id number] 02:41:00 Test Item Value Reference Range Comments MAGNESIUM (BEAKER) (test 2.3 mg/dL 1.6-2.6 Specimen slightly hemolyzed nsur=973) Fishing Rod Mechanic AMY ESTES [id number] 02:41:00 Test Item Value Reference Range Comments POTASSIUM (BEAKER) (test 4.9 meq/L 3.5-5.1 Specimen slightly hemolyzed lniu=893) Fishing Rod Mechanic AMY ESTES EBASIC METABOLIC [id number] 22:27:00 Test Item Value Reference Range Comments SODIUM (BEAKER) (test 127 meq/L 136-145 mvmc=864) POTASSIUM (BEAKER) (test 4.6 meq/L 3.5-5.1 qekt=841) CHLORIDE (BEAKER) (test 96 meq/L 98-107 fahc=810) CO2 (BEAKER) (test 22 meq/L 22-29 ybih=099) BLOOD UREA NITROGEN 73 mg/dL 7-21 (BEAKER) (test dqnl=143) CREATININE (BEAKER) (test 3.12 mg/dL 0.57-1.25 bycw=668) GLUCOSE RANDOM (BEAKER) 122 mg/dL 70-105 (test obgw=708) CALCIUM (BEAKER) (test 7.8 mg/dL 8.4-10.2 rkei=971) EGFR (BEAKER) (test 20 mL/min/1.73 sq m ESTIMATED GFR IS NOT ppvh=0326) ACCURATE CREATININE CLEARANCE IN PREDICTING GLOMERULAR FILTRATION RATE. ESTIMATED GFR IS NOT APPLICABLE FOR DIALYSIS PATIENTS. Fishing Rod Mechanic ID - [id number] 22:24:00 Test Item Value Reference Range Comments MAGNESIUM (BEAKER) (test ceso=212) 2.4 mg/dL 1.6-2.6 Fishing Rod Mechanic ID - BSPOCT-GLUCOSE [id number] 22:16:00 Test Item Value Reference Range Comments POC-GLUCOSE METER (BEAKER) 109 mg/dL 70-110 : TESTED AT [facility] [address] (test sjeg=3248) [facility], [id number]: Fishing Rod Mechanic/Colorer [id number] for MOHINI THURMAN CBC (HEMOGRAM ONLY)2019-06-09 21:57:00 Test Item Value Reference Range Comments WHITE BLOOD CELL COUNT (BEAKER) (test abpm=027) 14.6 K/ L 3.5-10.5 RED BLOOD CELL COUNT (BEAKER) (test aphj=996) 2.71 M/ L 4.63-6.08 HEMOGLOBIN (BEAKER) (test vldn=034) 7.8 GM/DL 13.7-17.5 HEMATOCRIT (BEAKER) (test wdkn=439) 23.9 % 40.1-51.0 MEAN CORPUSCULAR VOLUME (BEAKER) (test bhte=321) 88.2 fL 79.0-92.2 MEAN CORPUSCULAR HEMOGLOBIN (BEAKER) (test 28.8 pg 25.7-32.2 tisg=685) MEAN CORPUSCULAR HEMOGLOBIN CONC (BEAKER) (test 32.6 GM/DL 32.3-36.5 qdzk=715) RED CELL DISTRIBUTION WIDTH (BEAKER) (test 16.6 % 11.6-14.4 rior=451) PLATELET COUNT (BEAKER) (test unbs=531) 205 K/CU MM 150-450 MEAN PLATELET VOLUME (BEAKER) (test kwdb=813) 10.2 fL 9.4-12.4 NUCLEATED RED BLOOD CELLS (BEAKER) (test 0 /100 WBC 0-0 mmrr=182) BASIC METABOLIC [id number] 15:57:00 Test Item Value Reference Range Comments SODIUM (BEAKER) (test 129 meq/L 136-145 yryq=394) POTASSIUM (BEAKER) (test 4.8 meq/L 3.5-5.1 ffso=143) CHLORIDE (BEAKER) (test 98 meq/L 98-107 roiu=090) CO2 (BEAKER) (test 24 meq/L 22-29 pcfa=284) BLOOD UREA NITROGEN 82 mg/dL 7-21 (BEAKER) (test noys=117) CREATININE (BEAKER) (test 3.21 mg/dL 0.57-1.25 zjle=149) GLUCOSE RANDOM (BEAKER) 145 mg/dL 70-105 (test fiai=300) CALCIUM (BEAKER) (test 8.7 mg/dL 8.4-10.2 dyvv=591) EGFR (BEAKER) (test 19 mL/min/1.73 sq m ESTIMATED GFR IS NOT zecg=3037) ACCURATE CREATININE CLEARANCE IN PREDICTING GLOMERULAR FILTRATION RATE. ESTIMATED GFR IS NOT APPLICABLE FOR DIALYSIS PATIENTS. Fishing Rod Mechanic ID - MEERA [id number] 15:52:00 Test Item Value Reference Range Comments MAGNESIUM (BEAKER) (test vwwd=965) 2.6 mg/dL 1.6-2.6 Fishing Rod Mechanic ID - MEERA ELACTATE DEHYDROGENASE (LDH)2019-06-09 15:52:00 Test Item Value Reference Range Comments LACTATE DEHYDROGENASE (BEAKER) (test hhxk=271) 1283 U/L 125-220 Fishing Rod Mechanic ID - MEERA ECBC (HEMOGRAM ONLY)2019-06-09 15:36:00 Test Item Value Reference Range Comments WHITE BLOOD CELL COUNT (BEAKER) (test hkqc=313) 15.5 K/ L 3.5-10.5 RED BLOOD CELL COUNT (BEAKER) (test gtzf=681) 2.83 M/ L 4.63-6.08 HEMOGLOBIN (BEAKER) (test irga=860) 8.3 GM/DL 13.7-17.5 HEMATOCRIT (BEAKER) (test afsn=151) 24.7 % 40.1-51.0 MEAN CORPUSCULAR VOLUME (BEAKER) (test olzz=804) 87.3 fL 79.0-92.2 MEAN CORPUSCULAR HEMOGLOBIN (BEAKER) (test 29.3 pg 25.7-32.2 wngc=467) MEAN CORPUSCULAR HEMOGLOBIN CONC (BEAKER) (test 33.6 GM/DL 32.3-36.5 vgen=448) RED CELL DISTRIBUTION WIDTH (BEAKER) (test 16.6 % 11.6-14.4 dlhq=515) PLATELET COUNT (BEAKER) (test qqtc=716) 211 K/CU MM 150-450 MEAN PLATELET VOLUME (BEAKER) (test ybqv=718) 10.6 fL 9.4-12.4 NUCLEATED RED BLOOD CELLS (BEAKER) (test 0 /100 WBC 0-0 zlub=421) POCT-GLUCOSE [id number] 12:43:00 Test Item Value Reference Range Comments POC-GLUCOSE METER (BEAKER) 123 mg/dL 70-110 : Notified RN/MD: TESTED AT (test ilcw=1398) [facility] [address] [facility], [address]: Fishing Rod Mechanic/Colorer [id number] for JUANIS CARDENAS RAD, ABDOMEN/KUB, 1 VIEW [id number] 09:37:00Reason for exam:->stool impactionFINAL REPORT RAD, ABDOMEN/KUB, 1 VIEW AP CLINICAL INDICATION: stool impaction COMPARISON: None TECHNIQUE: Single, frontal radiograph of the abdomen. FINDINGS: The bowel gas pattern is nonspecific, but nonobstructive. The regional skeleton is intact. IMPRESSION : Nonspecific, nonobstructive bowel gas pattern. Colon is air and stool filled. Stool is present within the rectum. Signed: Marcella Burdick Verified Date/Time: 06/09/2019 09:37:05 Reading Location: [facility] Radiology Reading Room RAD, CHEST, 1 VIEW, NON [id number] 08:29:00Reason for exam:->s/p ACBShould this be performed at the bedside?->YesFINAL REPORT RAD, CHEST, 1 VIEW, NON DEPT INDICATION: s/p ACB COMPARISON: Prior day's exam FINDINGS: Portable frontal view of the chest. IMPRESSION: Support Lines: Stable. Lungs and pleura: Unchanged airspace and pleural opacities. No pneumothorax.Heart and mediastinum: Stable contours. Stable surgical changes.Additional findings: None. Signed: Marcella Burdick Verified Date/Time: 06/09/2019 08:29:29 Reading Location: [facility] Reading Room POCT-GLUCOSE [id number] 08:23:00 Test Item Value Reference Range Comments POC-GLUCOSE METER (BEAKER) 133 mg/dL 70-110 : Notified RN/MD: TESTED AT (test pmmn=6865) [facility] [address] [facility], [address]: Fishing Rod Mechanic/Colorer [id number] for JUANIS CARDENAS OXYGEN SATURATION, [id number] 06:33:00 Test Item Value Reference Range Comments O2 SATURATION (MEASURED) (BEAKER) (test wobf=8526) 58.0 % CBC W/PLT COUNT & AUTO [id number] 04:45:00 Test Item Value Reference Range Comments WHITE BLOOD CELL COUNT (BEAKER) (test ydcv=257) 19.7 K/ L 3.5-10.5 RED BLOOD CELL COUNT (BEAKER) (test dnom=369) 2.82 M/ L 4.63-6.08 HEMOGLOBIN (BEAKER) (test dqyl=038) 8.3 GM/DL 13.7-17.5 HEMATOCRIT (BEAKER) (test gnxn=451) 24.4 % 40.1-51.0 MEAN CORPUSCULAR VOLUME (BEAKER) (test kkjd=577) 86.5 fL 79.0-92.2 MEAN CORPUSCULAR HEMOGLOBIN (BEAKER) (test 29.4 pg 25.7-32.2 xuwr=954) MEAN CORPUSCULAR HEMOGLOBIN CONC (BEAKER) (test 34.0 GM/DL 32.3-36.5 btpd=106) RED CELL DISTRIBUTION WIDTH (BEAKER) (test 16.2 % 11.6-14.4 uzch=113) PLATELET COUNT (BEAKER) (test wpyo=400) 197 K/CU MM 150-450 MEAN PLATELET VOLUME (BEAKER) (test vvbq=821) 10.2 fL 9.4-12.4 NUCLEATED RED BLOOD CELLS (BEAKER) (test 0 /100 WBC 0-0 liuy=722) NEUTROPHILS RELATIVE PERCENT (BEAKER) (test 88 % cbsr=700) LYMPHOCYTES RELATIVE PERCENT (BEAKER) (test 4 % rudv=230) MONOCYTES RELATIVE PERCENT (BEAKER) (test 6 % rzur=226) EOSINOPHILS RELATIVE PERCENT (BEAKER) (test 1 % bgyn=205) BASOPHILS RELATIVE PERCENT (BEAKER) (test 0 % luyl=343) NEUTROPHILS ABSOLUTE COUNT (BEAKER) (test 17.31 K/ L 1.78-5.38 qhof=365) LYMPHOCYTES ABSOLUTE COUNT (BEAKER) (test 0.75 K/ L 1.32-3.57 ohio=761) MONOCYTES ABSOLUTE COUNT (BEAKER) (test 1.21 K/ L 0.30-0.82 gewf=989) EOSINOPHILS ABSOLUTE COUNT (BEAKER) (test 0.20 K/ L 0.04-0.54 abbt=058) BASOPHILS ABSOLUTE COUNT (BEAKER) (test 0.04 K/ L 0.01-0.08 swuu=259) IMMATURE GRANULOCYTES-RELATIVE PERCENT (BEAKER) 1 % 0-1 (test bgfd=6211) [id number] 04:23:00 Test Item Value Reference Range Comments PROTIME (BEAKER) (test ojdw=184) 20.5 seconds 11.9-14.2 INR (BEAKER) (test gmpz=742) 1.8 <=5.9 PARTIAL THROMBOPLASTIN TIME (BEAKER) (test 89.0 seconds 22.5-36.0 wqxu=461) Effective 10/12/2018: PT Reference Range ChangeNew: 11.9-14.2 Previous: 11.7- 14.7RECOMMENDED COUMADIN/WARFARIN INR THERAPY RANGESSTANDARD DOSE: 2.0-3.0 Includes: PROPHYLAXIS for venous thrombosis, systemic embolization; TREATMENT for venous thrombosis and/or pulmonary embolus.HIGH RISK: Target INR is2.5-3.5 for patients wiht mechanical heart valves.BASIC METABOLIC [id number] 04:11: 00 Test Item Value Reference Range Comments SODIUM (BEAKER) (test 126 meq/L 136-145 pcal=977) POTASSIUM (BEAKER) (test 4.7 meq/L 3.5-5.1 mfmw=465) CHLORIDE (BEAKER) (test 95 meq/L 98-107 zsrv=883) CO2 (BEAKER) (test 23 meq/L 22-29 eyiu=522) BLOOD UREA NITROGEN 70 mg/dL 7-21 (BEAKER) (test ceon=601) CREATININE (BEAKER) (test 3.00 mg/dL 0.57-1.25 dewi=746) GLUCOSE RANDOM (BEAKER) 121 mg/dL 70-105 (test itkg=785) CALCIUM (BEAKER) (test 8.1 mg/dL 8.4-10.2 icev=125) EGFR (BEAKER) (test 21 mL/min/1.73 sq m ESTIMATED GFR IS NOT xaqa=3813) ACCURATE CREATININE CLEARANCE IN PREDICTING GLOMERULAR FILTRATION RATE. ESTIMATED GFR IS NOT APPLICABLE FOR DIALYSIS PATIENTS. Fishing Rod Mechanic ID - MARISABEL [id number] 04:09:00 Test Item Value Reference Range Comments PHOSPHORUS (BEAKER) (test odyw=064) 3.7 mg/dL 2.3-4.7 Fishing Rod Mechanic ID - MARISABEL [id number] 04:09:00 Test Item Value Reference Range Comments MAGNESIUM (BEAKER) (test wwya=125) 2.1 mg/dL 1.6-2.6 Fishing Rod Mechanic ID - MARISABEL MLACTATE DEHYDROGENASE (LDH)2019-06-09 04:09:00 Test Item Value Reference Range Comments LACTATE DEHYDROGENASE (BEAKER) (test ntuh=192) 1092 U/L 125-220 Fishing Rod Mechanic ID - MARISABEL [id number] 01:08:00 Test Item Value Reference Range Comments POTASSIUM (BEAKER) (test gseu=031) 4.7 meq/L 3.5-5.1 Fishing Rod Mechanic ID - MARY [id number] 00:36:00 Test Item Value Reference Range Comments MAGNESIUM (BEAKER) (test nyzp=780) 2.1 mg/dL 1.6-2.6 Fishing Rod Mechanic ID - MARY BBASIC METABOLIC [id number] 19:01:00 Test Item Value Reference Range Comments SODIUM (BEAKER) (test 124 meq/L 136-145 lgcy=131) POTASSIUM (BEAKER) (test 4.5 meq/L 3.5-5.1 lovr=450) CHLORIDE (BEAKER) (test 94 meq/L 98-107 gimg=451) CO2 (BEAKER) (test 24 meq/L 22-29 wwwt=078) BLOOD UREA NITROGEN 69 mg/dL 7-21 (BEAKER) (test avdd=244) CREATININE (BEAKER) (test 2.93 mg/dL 0.57-1.25 rjfr=240) GLUCOSE RANDOM (BEAKER) 126 mg/dL 70-105 (test xrdi=592) CALCIUM (BEAKER) (test 7.9 mg/dL 8.4-10.2 lmrm=936) EGFR (BEAKER) (test 21 mL/min/1.73 sq m ESTIMATED GFR IS NOT dtjf=9849) ACCURATE CREATININE CLEARANCE IN PREDICTING GLOMERULAR FILTRATION RATE. ESTIMATED GFR IS NOT APPLICABLE FOR DIALYSIS PATIENTS. Fishing Rod Mechanic ID - [id number] 18:49:00 Test Item Value Reference Range Comments MAGNESIUM (BEAKER) (test clhn=901) 2.1 mg/dL 1.6-2.6 Fishing Rod Mechanic ID - AAHAMIDLACTATE DEHYDROGENASE (LDH)2019-06-08 18:49:00 Test Item Value Reference Range Comments LACTATE DEHYDROGENASE (BEAKER) (test wjmh=358) 1097 U/L 125-220 Fishing Rod Mechanic ID - AAHAMIDCBC (HEMOGRAM ONLY)2019-06-08 18:23:00 Test Item Value Reference Range Comments WHITE BLOOD CELL COUNT (BEAKER) (test wsta=652) 20.2 K/ L 3.5-10.5 RED BLOOD CELL COUNT (BEAKER) (test auhc=938) 2.76 M/ L 4.63-6.08 HEMOGLOBIN (BEAKER) (test kady=141) 8.2 GM/DL 13.7-17.5 HEMATOCRIT (BEAKER) (test xqeo=318) 23.9 % 40.1-51.0 MEAN CORPUSCULAR VOLUME (BEAKER) (test ckbs=534) 86.6 fL 79.0-92.2 MEAN CORPUSCULAR HEMOGLOBIN (BEAKER) (test 29.7 pg 25.7-32.2 xstn=050) MEAN CORPUSCULAR HEMOGLOBIN CONC (BEAKER) (test 34.3 GM/DL 32.3-36.5 nzlt=986) RED CELL DISTRIBUTION WIDTH (BEAKER) (test 16.5 % 11.6-14.4 nbal=822) PLATELET COUNT (BEAKER) (test pwmu=161) 192 K/CU MM 150-450 MEAN PLATELET VOLUME (BEAKER) (test uqfr=235) 10.2 fL 9.4-12.4 NUCLEATED RED BLOOD CELLS (BEAKER) (test 0 /100 WBC 0-0 vcjf=686) CT, CHEST, WITHOUT [id number] 16:45:00FINAL REPORT CT scan of the chest, abdomen and pelvis. MEDICAL HISTORY: Acuteabdominal pain. Rule out bowel obstruction. COMPARISON STUDY: Chest x-ray dated June 08, 2019 andabdominal x-ray dated June 07, 2019. TECHNIQUE: Contiguous helical slices were acquired through the chest, abdomen and pelvis without the administration of contrast. This exam was performed according to our department dose optimization program which includes automated exposure control, adjustment of the mA and/or kV according to the patient's size and/or use of iterative reconstruction technique. FINDINGS: The mediastinum demonstrates cardiomegaly. There is a 1.2 cm pericardial effusion. A pacer device, and patella device, right-sided central line and right jugular line are seen. No suspicious visceral masses or adenopathy are noted. Diffuse anasarca is seen. There is subcutaneous stranding in the right upper chest region related to Impella insertion. Bilateral small pleural effusions are identified. The tracheobronchial tree demonstrates extensive mucus plugging in the right lower lobe bronchus. No other endobronchial lesions are seen. The pulmonary parenchyma demonstrates bibasilar atelectasis or consolidation. A 4 mm calcified granuloma is seen in the lingula on image 30. Increased interstitial and groundglass opacities are identified with some interlobular septal thickening. Some scarring is seen in the left lung apex. The abdomen and pelvis are limited by lack of contrast. The liver,spleen, pancreas and adrenal glands are unremarkable. Atrophic changes are seen in the left kidney. Atherosclerosis is identified. The gallbladder and biliary tree are within normal limits. No dilated loops of bowel are seen to suggest obstruction. There is no free fluid or free air. Presacral edema is seen. Moderate colonic stool is identified. A Melara catheter is present the bladder. An infrarenal abdominal aortic aneurysm is seen measuring 4.1 x 4.0 cm in maximal transverse diameter. Atherosclerosis is seen. No suspicious adenopathy is noted. Bone windows demonstrate poststernotomy changes and degenerative changes. IMPRESSION:1. Bilateral small pleural effusions with adjacent atelectasis or consolidation as well as cardiomegaly and pulmonary groundglass and interstitial markings. These are most likely related to CHF. In the right clinical setting, a superimposed infection would be difficult to exclude. Clinical correlation and short term imaging follow-up could be made to exclude other etiologies.2. Mild to moderate pericardial effusion.3. Multiple support lines and tubes in place.4. Diffuse anasarca.5. Atrophic left kidney.6. An abdominal aortic aneurysm measures 4.1 cm in diameter. A follow-up examination is recommended every 12 months, and a vascular surgery consultation is recommended.7. Other findings as described above. No evidence of bowel obstruction. Signed: Ellen Roper MDReport Verified Date/Time: 06/08/2019 16:45:20 Reading Location: [facility] Diagnostic Imaging Reading Room- [place] [address] CT, ABDOMEN, WITHOUT [id number] 16:45:00With PO contrastFINAL REPORT CT scan of the chest , abdomen and pelvis. MEDICAL HISTORY: Acuteabdominal pain. Rule out bowel obstruction. COMPARISON STUDY: Chest x-ray dated June 08, 2019 andabdominal x -ray dated June 07, 2019. TECHNIQUE: Contiguous helical slices were acquired through the chest, abdomen and pelvis without the administration of contrast. This exam was performed according to our department dose optimization program which includes automated exposure control, adjustment of the mA and/or kV according to the patient's size and/or use of iterative reconstruction technique. FINDINGS: The mediastinum demonstrates cardiomegaly. There is a 1.2 cm pericardial effusion. A pacer device, and patella device, right-sided central line and right jugular line are seen. No suspicious visceral masses or adenopathy are noted. Diffuse anasarca is seen. There is subcutaneous stranding in the right upper chest region related to Impella insertion. Bilateral small pleural effusions are identified. The tracheobronchial tree demonstrates extensive mucus plugging in the right lower lobe bronchus. No other endobronchial lesions are seen. The pulmonary parenchyma demonstrates bibasilar atelectasis or consolidation. A 4 mm calcified granuloma is seen in the lingula on image 30. Increased interstitial and groundglass opacities are identified with some interlobular septal thickening. Some scarring is seen in the left lung apex. The abdomen and pelvis are limited by lack of contrast. The liver, spleen, pancreas and adrenal glands are unremarkable. Atrophic changes are seen in the left kidney. Atherosclerosis is identified. The gallbladder and biliary tree are within normal limits. No dilated loops of bowel are seen to suggest obstruction. There is no free fluid or free air. Presacral edema is seen. Moderate colonic stool is identified. A Melara catheter is present the bladder. An infrarenal abdominal aortic aneurysm is seen measuring 4.1 x 4.0 cm in maximal transverse diameter. Atherosclerosis is seen. No suspicious adenopathy is noted. Bone windows demonstrate poststernotomy changes and degenerative changes. IMPRESSION:1. Bilateral small pleural effusions with adjacent atelectasis or consolidation as well as cardiomegaly and pulmonary groundglass and interstitial markings. These are most likely related to CHF. In the right clinical setting, a superimposed infection would be difficult to exclude. Clinical correlation and short term imaging follow-up could be made to exclude other etiologies.2. Mild to moderate pericardial effusion.3. Multiple support lines and tubes in place.4. Diffuse anasarca.5. Atrophic left kidney.6. An abdominal aortic aneurysm measures 4.1 cm in diameter. A follow-up examination is recommended every 12 months, and a vascular surgery consultation is recommended.7. Other findings as described above. No evidence of bowel obstruction. Signed: Ellen Ropereport Verified Date/Time: 06/08/2019 16 :45:20 Reading Location: [facility] Diagnostic Imaging Reading Room- [place] [address] CT, PELVIS, WO [id number] 16:45:00FINAL REPORT CT scan of the chest, abdomen and pelvis. MEDICAL HISTORY: Acuteabdominal pain. Rule out bowel obstruction. COMPARISON STUDY: Chest x-ray dated June 08, 2019 andabdominal x-ray dated June 07, 2019. TECHNIQUE: Contiguous helical slices were acquired through the chest, abdomen and pelvis without the administration of contrast. This exam was performed according to our department dose optimization program which includes automated exposure control, adjustment of the mA and/or kV according to the patient's size and/or use of iterative reconstruction technique. FINDINGS: The mediastinum demonstrates cardiomegaly. There is a 1.2 cm pericardial effusion. A pacer device, and patella device, right-sided central line and right jugular line are seen. No suspicious visceral masses or adenopathy are noted. Diffuse anasarca is seen. There is subcutaneous stranding in the right upper chest region related to Impella insertion. Bilateral small pleural effusions are identified. The tracheobronchial tree demonstrates extensive mucus plugging in the right lower lobe bronchus. No other endobronchial lesions are seen. The pulmonary parenchyma demonstrates bibasilar atelectasis or consolidation. A 4 mm calcified granuloma is seen in the lingula on image 30. Increased interstitial and groundglass opacities are identified with some interlobular septal thickening. Some scarring is seen in the left lung apex. The abdomen and pelvis are limited by lack of contrast. The liver,spleen, pancreas and adrenal glands are unremarkable. Atrophic changes are seen in the left kidney. Atherosclerosis is identified. The gallbladder and biliary tree are within normal limits. No dilated loops of bowel are seen to suggest obstruction. There is no free fluid or free air. Presacral edema is seen. Moderate colonic stool is identified. A Melara catheter is present the bladder. An infrarenal abdominal aortic aneurysm is seen measuring 4.1 x 4.0 cm in maximal transverse diameter. Atherosclerosis is seen. No suspicious adenopathy is noted. Bone windows demonstrate poststernotomy changes and degenerative changes. IMPRESSION:1. Bilateral small pleural effusions with adjacent atelectasis or consolidation as well as cardiomegaly and pulmonary groundglass and interstitial markings. These are most likely related to CHF. In the right clinical setting, a superimposed infection would be difficult to exclude. Clinical correlation and short term imaging follow-up could be made to exclude other etiologies.2. Mild to moderate pericardial effusion.3. Multiple support lines and tubes in place.4. Diffuse anasarca.5. Atrophic left kidney.6. An abdominal aortic aneurysm measures 4.1 cm in diameter. A follow-up examination is recommended every 12 months, and a vascular surgery consultation is recommended.7. Other findings as described above. No evidence of bowel obstruction. Signed: Ellen Roper MDReport Verified Date/Time: 06/08/2019 16:45:20 Reading Location: [facility] Diagnostic Imaging Reading Room- [place] [address] BASI METABOLIC [id number] 12:00:00 Test Item Value Reference Range Comments SODIUM (BEAKER) (test 124 meq/L 136-145 wvgu=741) POTASSIUM (BEAKER) (test 4.7 meq/L 3.5-5.1 eirj=325) CHLORIDE (BEAKER) (test 94 meq/L 98-107 hlvl=069) CO2 (BEAKER) (test 22 meq/L 22-29 jbvh=534) BLOOD UREA NITROGEN 71 mg/dL 7-21 (BEAKER) (test qvro=078) CREATININE (BEAKER) (test 2.79 mg/dL 0.57-1.25 ifrf=108) GLUCOSE RANDOM (BEAKER) 123 mg/dL 70-105 (test gixt=058) CALCIUM (BEAKER) (test 7.9 mg/dL 8.4-10.2 tnpe=173) EGFR (BEAKER) (test 23 mL/min/1.73 sq m ESTIMATED GFR IS NOT elts=6613) ACCURATE CREATININE CLEARANCE IN PREDICTING GLOMERULAR FILTRATION RATE. ESTIMATED GFR IS NOT APPLICABLE FOR DIALYSIS PATIENTS. Fishing Rod Mechanic ID - [id number] 11:53:00 Test Item Value Reference Range Comments MAGNESIUM (BEAKER) (test lsvp=517) 2.2 mg/dL 1.6-2.6 Fishing Rod Mechanic ID - BSBLOOD GAS, [id number] 11:49:00 Test Item Value Reference Range Comments PH ARTERIAL (BEAKER) (test ozsh=292) 7.52 7.35-7.45 PCO2 ARTERIAL (BEAKER) (test thyv=199) 30 mmHg 35-45 PO2 ARTERIAL (BEAKER) (test ahht=037) 100 mmHg 80-90 O2 SATURATION ARTERIAL (BEAKER) (test pnrc=347) 98.1 % 96.0-97.0 HCO3 ARTERIAL (BEAKER) (test iyvb=941) 24 mmol/L 21-29 BASE EXCESS ARTERIAL (BEAKER) (test tnmt=271) 1.8 mmol/L -2.0-3.0 PATIENT TEMPERATURE (BEAKER) (test pold=1855) 37.5 C FIO2 (BEAKER) (test aops=7506) 36.0 % OXYGEN SATURATION, [id number] 11:47:00 Test Item Value Reference Range Comments O2 SATURATION (MEASURED) (BEAKER) (test wedk=3223) 62.0 % CBC (HEMOGRAM ONLY)2019-06-08 11:34:00 Test Item Value Reference Range Comments WHITE BLOOD CELL COUNT (BEAKER) (test aqyi=470) 21.6 K/ L 3.5-10.5 RED BLOOD CELL COUNT (BEAKER) (test lohd=718) 2.88 M/ L 4.63-6.08 HEMOGLOBIN (BEAKER) (test rcfp=115) 8.6 GM/DL 13.7-17.5 HEMATOCRIT (BEAKER) (test gsuk=451) 24.8 % 40.1-51.0 MEAN CORPUSCULAR VOLUME (BEAKER) (test lqma=713) 86.1 fL 79.0-92.2 MEAN CORPUSCULAR HEMOGLOBIN (BEAKER) (test 29.9 pg 25.7-32.2 lbkj=995) MEAN CORPUSCULAR HEMOGLOBIN CONC (BEAKER) (test 34.7 GM/DL 32.3-36.5 cmpf=244) RED CELL DISTRIBUTION WIDTH (BEAKER) (test 16.4 % 11.6-14.4 hzcn=606) PLATELET COUNT (BEAKER) (test blai=237) 210 K/CU MM 150-450 MEAN PLATELET VOLUME (BEAKER) (test cvks=629) 10.1 fL 9.4-12.4 NUCLEATED RED BLOOD CELLS (BEAKER) (test 0 /100 WBC 0-0 ekbf=587) RAD, CHEST, 1 VIEW, NON [id number] 08:14:00Reason for exam:->s/p ACBShould this be performed at the bedside?->YesFINAL REPORT TECHNIQUE: Frontal and lateral chest radiographs dated 06/08/2019. CLINICAL HISTORY: S/P ACB COMPARISON STUDY: Chest radiograph dated 06/07/2019 IMPRESSION:Right-sided Baldwin-Allison catheter has been replaced by a vascular line that terminates in the region of the superior vena cava. Remaining life support tubes and lines are stable. Stable airspace disease in the lung bases. No pleural effusion or pneumothorax. Cardiomediastinal silhouette is stable in size. No pulmonary edema. Midline sternotomy wires are intact and well aligned. Signed: Janes Dsouzaeport Verified Date/Time: 06/08/2019 08:14:47 Reading Location: [facility] Reading Room [id number] 06:12:00 Test Item Value Reference Range Comments PHOSPHORUS (BEAKER) (test ogku=026) 2.3 mg/dL 2.3-4.7 Fishing Rod Mechanic ID - FREDERICK [id number] 06:12:00 Test Item Value Reference Range Comments MAGNESIUM (BEAKER) (test vfdy=405) 2.2 mg/dL 1.6-2.6 Fishing Rod Mechanic ID - FREDERICK WLACTATE DEHYDROGENASE (LDH)2019-06-08 06:12:00 Test Item Value Reference Range Comments LACTATE DEHYDROGENASE (BEAKER) (test retq=449) 1147 U/L 125-220 Fishing Rod Mechanic ID - FREDERICK WBASIC METABOLIC [id number] 05:02:00 Test Item Value Reference Range Comments SODIUM (BEAKER) (test 125 meq/L 136-145 khuc=315) POTASSIUM (BEAKER) (test 4.5 meq/L 3.5-5.1 qszh=442) CHLORIDE (BEAKER) (test 94 meq/L 98-107 vnnd=768) CO2 (BEAKER) (test 20 meq/L 22-29 uwvv=447) BLOOD UREA NITROGEN 72 mg/dL 7-21 (BEAKER) (test lrck=260) CREATININE (BEAKER) (test 2.72 mg/dL 0.57-1.25 gpuh=239) GLUCOSE RANDOM (BEAKER) 157 mg/dL 70-105 (test fpze=531) CALCIUM (BEAKER) (test 8.0 mg/dL 8.4-10.2 ckhj=968) EGFR (BEAKER) (test 23 mL/min/1.73 sq m ESTIMATED GFR IS NOT ztva=5338) ACCURATE CREATININE CLEARANCE IN PREDICTING GLOMERULAR FILTRATION RATE. ESTIMATED GFR IS NOT APPLICABLE FOR DIALYSIS PATIENTS. 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5 % 40.1-51.0 MEAN CORPUSCULAR VOLUME (BEAKER) (test ubae=075) 86.7 fL 79.0-92.2 MEAN CORPUSCULAR HEMOGLOBIN (BEAKER) (test 29.3 pg 25.7-32.2 swkb=500) MEAN CORPUSCULAR HEMOGLOBIN CONC (BEAKER) (test 33.7 GM/DL 32.3-36.5 exgc=707) RED CELL DISTRIBUTION WIDTH (BEAKER) (test 16.1 % 11.6-14.4 kwqg=678) PLATELET COUNT (BEAKER) (test ezjj=136) 214 K/CU MM 150-450 MEAN PLATELET VOLUME (BEAKER) (test ckyc=935) 10.1 fL 9.4-12.4 NUCLEATED RED BLOOD CELLS (BEAKER) (test 0 /100 WBC 0-0 eytm=465) [id number] 02:13:00 Test Item Value Reference Range Comments POTASSIUM (BEAKER) (test tbqe=218) 4.3 meq/L 3.5-5.1 Fishing Rod Mechanic ID - FREDERICK [id number] 00:11:00 Test Item Value Reference Range Comments MAGNESIUM (BEAKER) (test wgtf=117) 2.0 mg/dL 1.6-2.6 Fishing Rod Mechanic ID - BSOXYGEN SATURATION, [id number] 20:12:00 Test Item Value Reference Range Comments O2 SATURATION (MEASURED) (BEAKER) (test wnye=6471) 69.5 % BASIC METABOLIC [id number] 17:41:00 Test Item Value Reference Range Comments SODIUM (BEAKER) (test 127 meq/L 136-145 kgoe=750) POTASSIUM (BEAKER) (test 4.3 meq/L 3.5-5.1 hmoe=025) CHLORIDE (BEAKER) (test 95 meq/L 98-107 fmuj=825) CO2 (BEAKER) (test 23 meq/L 22-29 ugfj=539) BLOOD UREA NITROGEN 68 mg/dL 7-21 (BEAKER) (test nxmo=715) CREATININE (BEAKER) (test 2.68 mg/dL 0.57-1.25 rpal=920) GLUCOSE RANDOM (BEAKER) 113 mg/dL 70-105 (test meex=090) CALCIUM (BEAKER) (test 8.2 mg/dL 8.4-10.2 dnsc=593) EGFR (BEAKER) (test 24 mL/min/1.73 sq m ESTIMATED GFR IS NOT yvtz=9299) ACCURATE CREATININE CLEARANCE IN PREDICTING GLOMERULAR FILTRATION RATE. ESTIMATED GFR IS NOT APPLICABLE FOR DIALYSIS PATIENTS. Fishing Rod Mechanic ID - [id number] 17:36:00 Test Item Value Reference Range Comments MAGNESIUM (BEAKER) (test jvwm=990) 2.0 mg/dL 1.6-2.6 Fishing Rod Mechanic ID - BSLACTATE DEHYDROGENASE (LDH)2019-06-07 17:36:00 Test Item Value Reference Range Comments LACTATE DEHYDROGENASE (BEAKER) (test wphh=655) 1259 U/L 125-220 Fishing Rod Mechanic ID - BSCBC (HEMOGRAM ONLY)2019-06-07 17:01:00 Test Item Value Reference Range Comments WHITE BLOOD CELL COUNT (BEAKER) (test bhim=982) 12.0 K/ L 3.5-10.5 RED BLOOD CELL COUNT (BEAKER) (test uelq=042) 3.17 M/ L 4.63-6.08 HEMOGLOBIN (BEAKER) (test jybt=145) 9.1 GM/DL 13.7-17.5 HEMATOCRIT (BEAKER) (test qblt=951) 27.5 % 40.1-51.0 MEAN CORPUSCULAR VOLUME (BEAKER) (test mrdb=184) 86.8 fL 79.0-92.2 MEAN CORPUSCULAR HEMOGLOBIN (BEAKER) (test 28.7 pg 25.7-32.2 cdmn=173) MEAN CORPUSCULAR HEMOGLOBIN CONC (BEAKER) (test 33.1 GM/DL 32.3-36.5 htyz=277) RED CELL DISTRIBUTION WIDTH (BEAKER) (test 15.9 % 11.6-14.4 swtb=469) PLATELET COUNT (BEAKER) (test gncl=041) 219 K/CU MM 150-450 MEAN PLATELET VOLUME (BEAKER) (test tgig=522) 9.8 fL 9.4-12.4 NUCLEATED RED BLOOD CELLS (BEAKER) (test 0 /100 WBC 0-0 ijlo=609) RAD, ABDOMEN/KUB, 1 VIEW [id number] 16:52:00Reason for exam:->Evaluate for SBOFINAL REPORT EXAM: AP abdominal radiographs, 2 images HISTORY PROVIDED: Evaluate for small bowel obstruction COMPARISON: None available IMPRESSION:There are some mildly prominentloops of air-filled small bowel, none of which appear dilated; perhaps secondary to ileus. There is a moderate amount of stool seen within the colon. While no definite free air is seen, this examination is insensitive for the detection of free air. No acute osseous abnormality. Degenerative changes ofthe spine are noted. The visualized mid and lower lung fregoso demonstrate interstitial and airspace opacities. Signed: Linda Benton MDReport Verified Date/Time: 06/07/2019 16:52:41 Reading Location: [facility] Reading Room BLOOD GAS, [id number] 16:48:00 Test Item Value Reference Range Comments PH ARTERIAL (BEAKER) (test iyrq=037) 7.51 7.35-7.45 PCO2 ARTERIAL (BEAKER) (test dypk=398) 29 mmHg 35-45 PO2 ARTERIAL (BEAKER) (test ibfa=237) 85 mmHg 80-90 O2 SATURATION ARTERIAL (BEAKER) (test njoa=187) 97.4 % 96.0-97.0 HCO3 ARTERIAL (BEAKER) (test rywm=216) 23 mmol/L 21-29 BASE EXCESS ARTERIAL (BEAKER) (test kekg=285) 0.3 mmol/L -2.0-3.0 PATIENT TEMPERATURE (BEAKER) (test ldlw=7982) 36.5 C FIO2 (BEAKER) (test ovuw=0224) 21.0 % OXYGEN SATURATION, [id number] 16:47:00 Test Item Value Reference Range Comments O2 SATURATION (MEASURED) (BEAKER) (test kpxc=1228) 34.9 % OXYGEN SATURATION, [id number] 13:12:00 Test Item Value Reference Range Comments O2 SATURATION (MEASURED) (BEAKER) (test jmiy=5518) 45.0 % [id number] 06:24:00 Test Item Value Reference Range Comments THYROID STIMULATING HORMONE (BEAKER) (test 2.27 uIU/mL 0.35-4.94 gvwl=867) Fishing Rod Mechanic ID - MARISABEL MLACTATE DEHYDROGENASE (LDH)2019-06-07 06:04:00 Test Item Value Reference Range Comments LACTATE DEHYDROGENASE (BEAKER) 1360 U/L 125-220 Specimen slightly hemolyzed (test emmb=557) Fishing Rod Mechanic ID - MARISABEL MBASIC METABOLIC [id number] 06:04:00 Test Item Value Reference Range Comments SODIUM (BEAKER) (test 129 meq/L 136-145 hhdo=253) POTASSIUM (BEAKER) (test 4.5 meq/L 3.5-5.1 Specimen slightly pcsb=611) hemolyzed CHLORIDE (BEAKER) (test 96 meq/L 98-107 zmfi=600) CO2 (BEAKER) (test 24 meq/L 22-29 jdkd=386) BLOOD UREA NITROGEN 74 mg/dL 7-21 (BEAKER) (test liyr=587) CREATININE (BEAKER) (test 2.68 mg/dL 0.57-1.25 Specimen slightly ceyz=795) hemolyzed GLUCOSE RANDOM (BEAKER) 114 mg/dL 70-105 (test ojdn=021) CALCIUM (BEAKER) (test 8.1 mg/dL 8.4-10.2 jutp=230) EGFR (BEAKER) (test 24 mL/min/1.73 sq m ESTIMATED GFR IS NOT qqrf=1151) ACCURATE CREATININE CLEARANCE IN PREDICTING GLOMERULAR FILTRATION RATE. ESTIMATED GFR IS NOT APPLICABLE FOR DIALYSIS PATIENTS. Fishing Rod Mechanic ID - MARISABEL [id number] 06:02:00 Test Item Value Reference Range Comments MAGNESIUM (BEAKER) (test 2.3 mg/dL 1.6-2.6 Specimen slightly hemolyzed sxum=486) Fishing Rod Mechanic ID - MARISABEL [id number] 06:02:00 Test Item Value Reference Range Comments PHOSPHORUS (BEAKER) (test 3.1 mg/dL 2.3-4.7 Specimen slightly hemolyzed xzxp=974) Fishing Rod Mechanic ID - MARISABEL MCBC W/PLT COUNT & AUTO [id number] 05:49:00 Test Item Value Reference Range Comments WHITE BLOOD CELL COUNT (BEAKER) (test inwe=264) 9.0 K/ L 3.5-10.5 RED BLOOD CELL COUNT (BEAKER) (test lprk=293) 2.91 M/ L 4.63-6.08 HEMOGLOBIN (BEAKER) (test ikxo=456) 8.4 GM/DL 13.7-17.5 HEMATOCRIT (BEAKER) (test niei=421) 25.0 % 40.1-51.0 MEAN CORPUSCULAR VOLUME (BEAKER) (test bglt=943) 85.9 fL 79.0-92.2 MEAN CORPUSCULAR HEMOGLOBIN (BEAKER) (test 28.9 pg 25.7-32.2 frdb=986) MEAN CORPUSCULAR HEMOGLOBIN CONC (BEAKER) (test 33.6 GM/DL 32.3-36.5 rtqi=598) RED CELL DISTRIBUTION WIDTH (BEAKER) (test 15.8 % 11.6-14.4 imwh=111) PLATELET COUNT (BEAKER) (test welf=789) 188 K/CU MM 150-450 MEAN PLATELET VOLUME (BEAKER) (test aext=956) 10.4 fL 9.4-12.4 NUCLEATED RED BLOOD CELLS (BEAKER) (test 0 /100 WBC 0-0 cirg=456) NEUTROPHILS RELATIVE PERCENT (BEAKER) (test 78 % kwkm=380) LYMPHOCYTES RELATIVE PERCENT (BEAKER) (test 7 % vddb=991) MONOCYTES RELATIVE PERCENT (BEAKER) (test 10 % wqoi=458) EOSINOPHILS RELATIVE PERCENT (BEAKER) (test 3 % ikto=686) BASOPHILS RELATIVE PERCENT (BEAKER) (test 0 % qenh=928) NEUTROPHILS ABSOLUTE COUNT (BEAKER) (test 7.00 K/ L 1.78-5.38 fbwb=386) LYMPHOCYTES ABSOLUTE COUNT (BEAKER) (test 0.63 K/ L 1.32-3.57 lmkk=592) MONOCYTES ABSOLUTE COUNT (BEAKER) (test 0.93 K/ L 0.30-0.82 avky=724) EOSINOPHILS ABSOLUTE COUNT (BEAKER) (test 0.30 K/ L 0.04-0.54 ycdi=874) BASOPHILS ABSOLUTE COUNT (BEAKER) (test 0.02 K/ L 0.01-0.08 puzp=133) IMMATURE GRANULOCYTES-RELATIVE PERCENT (BEAKER) 1 % 0-1 (test xmls=8036) [id number] 05:46:00 Test Item Value Reference Range Comments PROTIME (BEAKER) (test glhg=128) 18.6 seconds 11.9-14.2 INR (BEAKER) (test qcqs=047) 1.6 <=5.9 PARTIAL THROMBOPLASTIN TIME (BEAKER) (test 86.0 seconds 22.5-36.0 hota=906) Effective 10/12/2018: PT Reference Range ChangeNew: 11.9-14.2 Previous: 11.7- 14.7RECOMMENDED COUMADIN/WARFARIN INR THERAPY RANGESSTANDARD DOSE: 2.0-3.0 Includes: PROPHYLAXIS for venous thrombosis, systemic embolization; TREATMENT for venous thrombosis and/or pulmonary embolus.HIGH RISK: Target INR is2.5-3.5 for patients wiht mechanical heart valves.PH, [id number] 05:42:00 Test Item Value Reference Range Comments PH VENOUS (BEAKER) (test mmse=977) 7.48 7.32-7.42 BLOOD GAS, [id number] 05:39:00 Test Item Value Reference Range Comments PH ARTERIAL (BEAKER) (test ixlr=920) 7.53 7.35-7.45 PCO2 ARTERIAL (BEAKER) (test gucn=622) 31 mmHg 35-45 PO2 ARTERIAL (BEAKER) (test szzc=103) 113 mmHg 80-90 O2 SATURATION ARTERIAL (BEAKER) (test kmeg=933) 98.6 % 96.0-97.0 HCO3 ARTERIAL (BEAKER) (test rfnn=009) 25 mmol/L 21-29 BASE EXCESS ARTERIAL (BEAKER) (test bies=745) 2.9 mmol/L -2.0-3.0 PATIENT TEMPERATURE (BEAKER) (test gacj=7219) 37.0 C FIO2 (BEAKER) (test pxzn=9316) 36.0 % OXYGEN SATURATION, [id number] 05:09:00 Test Item Value Reference Range Comments O2 SATURATION (MEASURED) (BEAKER) (test qlqe=3180) 61.0 % RAD, CHEST, 1 VIEW, NON [id number] 04:54:00Reason for exam:->s/p ACBShould this be performed at the bedside?->YesFINAL REPORT RAD, CHEST, 1 VIEW, NON DEPT INDICATION: s/p ACB COMPARISON: Prior day' s exam FINDINGS: Portable frontal view of the chest. IMPRESSION: Support Lines: Stable. Lungs and pleura: Improved aeration of the bilateral lung bases with persistent discoid atelectasis in the bilateral perihilar and infrahilar region. Small bilateral pleural effusions. No pneumothorax.Heart and mediastinum : Stable contours. Stable surgical changes.Additional findings: None. Signed: Divya Bareport Verified Date/Time: 06/07/2019 04:54:22 LACTATE DEHYDROGENASE (LDH)2019-06-06 22:13:00 Test Item Value Reference Range Comments LACTATE DEHYDROGENASE (BEAKER) (test rxmt=343) 1170 U/L 125-220 Fishing Rod Mechanic ID - BSBASI METABOLIC [id number] 22:05:00 Test Item Value Reference Range Comments SODIUM (BEAKER) (test 128 meq/L 136-145 dnyq=157) POTASSIUM (BEAKER) (test 3.8 meq/L 3.5-5.1 zwmx=369) CHLORIDE (BEAKER) (test 94 meq/L 98-107 gxvy=729) CO2 (BEAKER) (test 23 meq/L 22-29 atgt=547) BLOOD UREA NITROGEN 78 mg/dL 7-21 (BEAKER) (test eccg=463) CREATININE (BEAKER) (test 2.90 mg/dL 0.57-1.25 kwej=876) GLUCOSE RANDOM (BEAKER) 135 mg/dL 70-105 (test zjii=938) CALCIUM (BEAKER) (test 8.0 mg/dL 8.4-10.2 onmg=028) EGFR (BEAKER) (test 22 mL/min/1.73 sq m ESTIMATED GFR IS NOT tdgg=6122) ACCURATE CREATININE CLEARANCE IN PREDICTING GLOMERULAR FILTRATION RATE. ESTIMATED GFR IS NOT APPLICABLE FOR DIALYSIS PATIENTS. Fishing Rod Mechanic ID - [id number] 21:58:00 Test Item Value Reference Range Comments MAGNESIUM (BEAKER) (test kngr=928) 2.4 mg/dL 1.6-2.6 Fishing Rod Mechanic ID - [id number] 21:26:00 Test Item Value Reference Range Comments PARTIAL THROMBOPLASTIN TIME (BEAKER) (test 87.9 seconds 22.5-36.0 vpak=644) CBC (HEMOGRAM ONLY)2019-06-06 21:15:00 Test Item Value Reference Range Comments WHITE BLOOD CELL COUNT (BEAKER) (test fslr=484) 9.1 K/ L 3.5-10.5 RED BLOOD CELL COUNT (BEAKER) (test dwrd=296) 2.92 M/ L 4.63-6.08 HEMOGLOBIN (BEAKER) (test eehy=878) 8.4 GM/DL 13.7-17.5 HEMATOCRIT (BEAKER) (test ytbr=276) 25.6 % 40.1-51.0 MEAN CORPUSCULAR VOLUME (BEAKER) (test adns=367) 87.7 fL 79.0-92.2 MEAN CORPUSCULAR HEMOGLOBIN (BEAKER) (test 28.8 pg 25.7-32.2 sekq=264) MEAN CORPUSCULAR HEMOGLOBIN CONC (BEAKER) (test 32.8 GM/DL 32.3-36.5 hcin=448) RED CELL DISTRIBUTION WIDTH (BEAKER) (test 15.5 % 11.6-14.4 twwm=472) PLATELET COUNT (BEAKER) (test vizk=374) 195 K/CU MM 150-450 MEAN PLATELET VOLUME (BEAKER) (test uztw=511) 10.2 fL 9.4-12.4 NUCLEATED RED BLOOD CELLS (BEAKER) (test 0 /100 WBC 0-0 xaja=679) [id number] 16:45:00 Test Item Value Reference Range Comments MAGNESIUM (BEAKER) (test uizj=912) 1.9 mg/dL 1.6-2.6 Fishing Rod Mechanic ID - [id number] 16:29:00 Test Item Value Reference Range Comments PARTIAL THROMBOPLASTIN TIME (BEAKER) (test 75.1 seconds 22.5-36.0 ityn=423) HEPARIN [id number] 14:48:00 Test Item Value Reference Range Comments HEPARIN ANTIBODY (BEAKER) (test ukde=083) Negative Negative HEPARIN ANTIBODY OD (BEAKER) (test rhfk=0279) 0.171 <0.400 4T TOTAL SCORE (BEAKER) (test zwts=0564) 5 Probability of HIT based on scoring system: 6-8=High probability; 4-5= intermediate probability; 0-3=low probabilityOXYGEN SATURATION, [id number] 12:29:00 Test Item Value Reference Range Comments O2 SATURATION (MEASURED) (JINA) (test guux=5125) 55.1 % RAD, CHEST, 1 VIEW, NON [id number] 08:23:00Reason for exam:->s/p ACBShould this be performed at the bedside?->YesFINAL REPORT TECHNIQUE: Frontal chest radiograph dated 06/06/2019. CLINICAL HISTORY : S/P ACB COMPARISON STUDY: Chest radiograph dated 06/05/2019 IMPRESSION:Life support tubes, lines and devices are stable. No change in interstitial and airspace disease bilaterally. Stable right pleural effusion. No pneumothorax. Cardiomediastinal silhouette is stable in size. Midline sternotomy wires are intact and well aligned. Signed: Janes Dsouza Verified Date/Time : 06/06/2019 08:23:36 Reading Location: [facility] Reading Room LACTATE DEHYDROGENASE (LDH)2019-06-06 07:34:00 Test Item Value Reference Range Comments LACTATE DEHYDROGENASE (BEAKER) (test ocjw=894) 1201 U/L 125-220 Fishing Rod Mechanic ID - [id number] 05:07:00 Test Item Value Reference Range Comments PHOSPHORUS (BEAKER) (test crfw=871) 3.8 mg/dL 2.3-4.7 Fishing Rod Mechanic ID - [id number] 05:07:00 Test Item Value Reference Range Comments MAGNESIUM (BEAKER) (test kcrz=669) 1.9 mg/dL 1.6-2.6 Fishing Rod Mechanic ID - LABASIC METABOLIC [id number] 05:07:00 Test Item Value Reference Range Comments SODIUM (BEAKER) (test 129 meq/L 136-145 eifk=055) POTASSIUM (BEAKER) (test 3.6 meq/L 3.5-5.1 wccy=687) CHLORIDE (BEAKER) (test 93 meq/L 98-107 lvdd=826) CO2 (BEAKER) (test 27 meq/L 22-29 tvsy=571) BLOOD UREA NITROGEN 72 mg/dL 7-21 (BEAKER) (test yslb=836) CREATININE (BEAKER) (test 2.93 mg/dL 0.57-1.25 yuuz=321) GLUCOSE RANDOM (BEAKER) 118 mg/dL 70-105 (test fehq=189) CALCIUM (BEAKER) (test 8.3 mg/dL 8.4-10.2 srqx=583) EGFR (BEAKER) (test 21 mL/min/1.73 sq m ESTIMATED GFR IS NOT rwsl=8708) ACCURATE CREATININE CLEARANCE IN PREDICTING GLOMERULAR FILTRATION RATE. ESTIMATED GFR IS NOT APPLICABLE FOR DIALYSIS PATIENTS. Fishing Rod Mechanic ID - LAOXYGEN SATURATION, [id number] 04:48:00 Test Item Value Reference Range Comments O2 SATURATION (MEASURED) (BEAKER) (test qqku=4455) 65.2 % CALCIUM, [id number] 04:45:00 Test Item Value Reference Range Comments CALCIUM IONIZED (BEAKER) (test gctj=986) 1.07 mmol/L 1.12-1.27 PH, BLOOD (BEAKER) (test fmew=6744) 7.47 CBC (HEMOGRAM ONLY)2019-06-06 04:45:00 Test Item Value Reference Range Comments WHITE BLOOD CELL COUNT (BEAKER) (test ejnm=090) 9.6 K/ L 3.5-10.5 RED BLOOD CELL COUNT (BEAKER) (test slvl=781) 2.98 M/ L 4.63-6.08 HEMOGLOBIN (BEAKER) (test gxpg=717) 8.6 GM/DL 13.7-17.5 HEMATOCRIT (BEAKER) (test ykxh=451) 25.5 % 40.1-51.0 MEAN CORPUSCULAR VOLUME (BEAKER) (test vnmm=569) 85.6 fL 79.0-92.2 MEAN CORPUSCULAR HEMOGLOBIN (BEAKER) (test 28.9 pg 25.7-32.2 zwog=302) MEAN CORPUSCULAR HEMOGLOBIN CONC (BEAKER) (test 33.7 GM/DL 32.3-36.5 fvoh=205) RED CELL DISTRIBUTION WIDTH (BEAKER) (test 15.4 % 11.6-14.4 lfiy=483) PLATELET COUNT (BEAKER) (test wzty=923) 191 K/CU MM 150-450 MEAN PLATELET VOLUME (BEAKER) (test vevc=106) 10.2 fL 9.4-12.4 NUCLEATED RED BLOOD CELLS (BEAKER) (test 0 /100 WBC 0-0 lefu=328) BLOOD GAS, [id number] 04:44:00 Test Item Value Reference Range Comments PH ARTERIAL (BEAKER) (test yqsw=830) 7.48 7.35-7.45 PCO2 ARTERIAL (BEAKER) (test oney=381) 38 mmHg 35-45 PO2 ARTERIAL (BEAKER) (test tijx=811) 79 mmHg 80-90 O2 SATURATION ARTERIAL (BEAKER) (test ikdf=196) 96.5 % 96.0-97.0 HCO3 ARTERIAL (BEAKER) (test ubuv=024) 28 mmol/L 21-29 BASE EXCESS ARTERIAL (BEAKER) (test kvgj=168) 3.8 mmol/L -2.0-3.0 PATIENT TEMPERATURE (BEAKER) (test sqje=1581) 36.7 C FIO2 (BEAKER) (test hpii=0231) 36.0 % [id number] 02:44:00 Test Item Value Reference Range Comments PARTIAL THROMBOPLASTIN TIME (BEAKER) (test 81.9 seconds 22.5-36.0 zrdl=691) BASIC METABOLIC [id number] 23:02:00 Test Item Value Reference Range Comments SODIUM (BEAKER) (test 127 meq/L 136-145 ihct=147) POTASSIUM (BEAKER) (test 3.6 meq/L 3.5-5.1 labq=912) CHLORIDE (BEAKER) (test 93 meq/L 98-107 zixz=491) CO2 (BEAKER) (test 24 meq/L 22-29 vyev=503) BLOOD UREA NITROGEN 82 mg/dL 7-21 (BEAKER) (test mmel=390) CREATININE (BEAKER) (test 3.01 mg/dL 0.57-1.25 bzbu=080) GLUCOSE RANDOM (BEAKER) 129 mg/dL 70-105 (test rwdz=239) CALCIUM (BEAKER) (test 8.3 mg/dL 8.4-10.2 hixr=423) EGFR (BEAKER) (test 21 mL/min/1.73 sq m ESTIMATED GFR IS NOT aqzc=3789) ACCURATE CREATININE CLEARANCE IN PREDICTING GLOMERULAR FILTRATION RATE. ESTIMATED GFR IS NOT APPLICABLE FOR DIALYSIS PATIENTS. Fishing Rod Mechanic ID - [id number] 22:50:00 Test Item Value Reference Range Comments MAGNESIUM (BEAKER) (test koag=907) 2.0 mg/dL 1.6-2.6 Fishing Rod Mechanic ID - BSOXYGEN SATURATION, [id number] 22:39:00 Test Item Value Reference Range Comments O2 SATURATION (MEASURED) (BEAKER) (test ffsy=9925) 57.2 % CBC (HEMOGRAM ONLY)2019-06-05 22:31:00 Test Item Value Reference Range Comments WHITE BLOOD CELL COUNT (BEAKER) (test ngri=086) 9.8 K/ L 3.5-10.5 RED BLOOD CELL COUNT (BEAKER) (test qzmu=016) 3.04 M/ L 4.63-6.08 HEMOGLOBIN (BEAKER) (test tcsb=420) 8.9 GM/DL 13.7-17.5 HEMATOCRIT (BEAKER) (test txdg=151) 26.0 % 40.1-51.0 MEAN CORPUSCULAR VOLUME (BEAKER) (test vosc=044) 85.5 fL 79.0-92.2 MEAN CORPUSCULAR HEMOGLOBIN (BEAKER) (test 29.3 pg 25.7-32.2 tkme=975) MEAN CORPUSCULAR HEMOGLOBIN CONC (BEAKER) (test 34.2 GM/DL 32.3-36.5 fvlm=584) RED CELL DISTRIBUTION WIDTH (BEAKER) (test 15.2 % 11.6-14.4 fcij=314) PLATELET COUNT (BEAKER) (test njct=569) 183 K/CU MM 150-450 MEAN PLATELET VOLUME (BEAKER) (test jlug=388) 10.2 fL 9.4-12.4 NUCLEATED RED BLOOD CELLS (BEAKER) (test 0 /100 WBC 0-0 wojd=786) OXYGEN SATURATION, [id number] 15:52:00 Test Item Value Reference Range Comments O2 SATURATION (MEASURED) (BEAKER) (test dphf=4180) 49.7 % [id number] 15:43:00 Test Item Value Reference Range Comments MAGNESIUM (BEAKER) (test pqip=903) 2.0 mg/dL 1.6-2.6 Fishing Rod Mechanic ID - [id number] 15:42:00 Test Item Value Reference Range Comments PARTIAL THROMBOPLASTIN TIME (BEAKER) (test 84.7 seconds 22.5-36.0 bnqh=983) Draw baseline aPTT prior to infusionCBC (HEMOGRAM ONLY)2019-06-05 15:24:00 Test Item Value Reference Range Comments WHITE BLOOD CELL COUNT (BEAKER) (test tdmk=752) 10.9 K/ L 3.5-10.5 RED BLOOD CELL COUNT (BEAKER) (test qhwf=184) 2.96 M/ L 4.63-6.08 HEMOGLOBIN (BEAKER) (test poyu=919) 8.7 GM/DL 13.7-17.5 HEMATOCRIT (BEAKER) (test wfcd=161) 25.4 % 40.1-51.0 MEAN CORPUSCULAR VOLUME (BEAKER) (test kzgj=952) 85.8 fL 79.0-92.2 MEAN CORPUSCULAR HEMOGLOBIN (BEAKER) (test 29.4 pg 25.7-32.2 vgwe=607) MEAN CORPUSCULAR HEMOGLOBIN CONC (BEAKER) (test 34.3 GM/DL 32.3-36.5 zhab=046) RED CELL DISTRIBUTION WIDTH (BEAKER) (test 15.1 % 11.6-14.4 qrjv=038) PLATELET COUNT (BEAKER) (test xbym=626) 201 K/CU MM 150-450 MEAN PLATELET VOLUME (BEAKER) (test eprf=336) 10.2 fL 9.4-12.4 NUCLEATED RED BLOOD CELLS (BEAKER) (test 0 /100 WBC 0-0 zxry=144) CREATININE, RANDOM [id number] 13:58:00 Test Item Value Reference Range Comments CREATININE URINE (BEAKER) (test bmvx=441) 22.9 mg/dL Reference Range: No NormalsOperator ID - NTPOSMOLALITY, [id number] 13:46:00 Test Item Value Reference Range Comments OSMOLALITY URINE (BEAKER) (test peob=388) 298 mOsm/kg 40-1,400 OXYGEN SATURATION, [id number] 12:16:00 Test Item Value Reference Range Comments O2 SATURATION (MEASURED) (BEAKER) (test ldgv=2653) 46.8 % LACTATE DEHYDROGENASE (LDH)2019-06-05 11:49:00 Test Item Value Reference Range Comments LACTATE DEHYDROGENASE (BEAKER) (test tghu=610) 1289 U/L 125-220 Fishing Rod Mechanic ID - NTPPLASMA FREE [id number] 10:20:00 Test Item Value Reference Range Comments HEMOGLOBIN PLASMA (BEAKER) (test ttfr=1133) 120.0 mg/dl 0.0-30.0 CHLORIDE, RANDOM [id number] 09:51:00 Test Item Value Reference Range Comments CHLORIDE URINE (BEAKER) (test exfa=219) 94 meq/L Reference Range: No NormalsOperator ID - NTPPOTASSIUM, RANDOM [id number] 09 :51:00 Test Item Value Reference Range Comments POTASSIUM URINE (BEAKER) (test uwte=700) 19.7 meq/L Reference Range: No NormalsOperator ID - NTPSODIUM, RANDOM [id number] 09:51 :00 Test Item Value Reference Range Comments SODIUM URINE (BEAKER) (test slpo=749) 83 meq/L Reference Range: No NormalsOperator ID - NTPUREA NITROGEN, RANDOM [id number] 09:51:00 Test Item Value Reference Range Comments UREA NITROGEN URINE (BEAKER) (test brxi=791) 209 mg/dL Reference Range: No NormalsOperator ID - NTPURIC ACID, RANDOM [id number] 09 :51:00 Test Item Value Reference Range Comments URIC ACID, URINE (BEAKER) (test hozd=8761) 12.5 mg/dL Reference Range: No NormalsOperator ID - NTPOperator ID - NTPHEPARIN ASSAY - LOW MOLECULAR [id number] 09:34:00 Test Item Value Reference Range Comments LOVENOX-ANTI 10A (BEAKER) (test klyq=8519) 0.15 u/ml 0.60-2.00 Anti-Factor 10-A Level (Heparin Assay for Low Molecular Weight Heparin) Monitoring Guidelines: Blood samples should be obtained 4 hours post subcutaneous injection (time of Peak level) Therapeutic Peak Levels: 0.6-1.0 units/mL twice daily enoxaparin 1.0-2.0 units/mL once daily enoxaparinRef: CHEST 2012;141:[id number] (TEG)2019-06-05 09:30:00 Test Item Value Reference Range Comments TEG ACTIVATED CLOTTING TIME (BEAKER) (test 13.1 minutes 4.0-7.0 aogd=7181) TEG FIBRINOGEN ACTIVITY (BEAKER) (test 46.9 degrees 61.0-73.0 sltr=0846) TEG PLT. AGGREGATION (BEAKER) (test hznd=8814) 78.6 MM 55.0-65.0 TEG FIBRINOLYSIS (BEAKER) (test diuq=9567) 0.0 % 0.0-5.0 TGH ACTIVATED CLOTTING TIME (BEAKER) (test 5.8 minutes 4.0-7.0 kiuo=9920) TGH FIBRINOGEN ACTIVITY (BEAKER) (test 77.0 degrees 61.0-73.0 zilw=2565) TGH PLT. AGGREGATION (BEAKER) (test zogy=2512) 76.0 MM 55.0-65.0 TGH FIBRINOLYSIS (BEAKER) (test egev=5142) 1.4 % 0.0-5.0 BLOOD GAS, [id number] 09:02:00 Test Item Value Reference Range Comments PH ARTERIAL (BEAKER) (test tudk=558) 7.51 7.35-7.45 PCO2 ARTERIAL (BEAKER) (test llkb=920) 34 mmHg 35-45 PO2 ARTERIAL (BEAKER) (test utkz=017) 119 mmHg 80-90 O2 SATURATION ARTERIAL (BEAKER) (test eupr=718) 98.7 % 96.0-97.0 HCO3 ARTERIAL (BEAKER) (test jkqq=015) 26 mmol/L 21-29 BASE EXCESS ARTERIAL (BEAKER) (test zjlc=458) 2.8 mmol/L -2.0-3.0 PATIENT TEMPERATURE (BEAKER) (test svpr=3761) 36.6 C FIO2 (BEAKER) (test cibj=9161) 44.0 % BASIC METABOLIC [id number] 08:42:00 Test Item Value Reference Range Comments SODIUM (BEAKER) (test 128 meq/L 136-145 raqa=707) POTASSIUM (BEAKER) (test 3.5 meq/L 3.5-5.1 omoo=264) CHLORIDE (BEAKER) (test 92 meq/L 98-107 lllh=278) CO2 (BEAKER) (test 26 meq/L 22-29 ybfy=137) BLOOD UREA NITROGEN 72 mg/dL 7-21 (BEAKER) (test tynl=839) CREATININE (BEAKER) (test 2.97 mg/dL 0.57-1.25 nyqg=125) GLUCOSE RANDOM (BEAKER) 126 mg/dL 70-105 (test qeqb=572) CALCIUM (BEAKER) (test 9.0 mg/dL 8.4-10.2 pfii=077) EGFR (BEAKER) (test 21 mL/min/1.73 sq m ESTIMATED GFR IS NOT mazu=4696) ACCURATE CREATININE CLEARANCE IN PREDICTING GLOMERULAR FILTRATION RATE. ESTIMATED GFR IS NOT APPLICABLE FOR DIALYSIS PATIENTS. Fishing Rod Mechanic ID - [id number] 08:33:00 Test Item Value Reference Range Comments MAGNESIUM (BEAKER) (test mrwh=992) 2.1 mg/dL 1.6-2.6 Fishing Rod Mechanic ID - [id number] 08:26:00 Test Item Value Reference Range Comments PROTIME (BEAKER) (test jyuy=555) 15.1 seconds 11.9-14.2 INR (BEAKER) (test dqhn=227) 1.2 <=5.9 PARTIAL THROMBOPLASTIN TIME (BEAKER) (test 71.2 seconds 22.5-36.0 orve=512) Effective 10/12/2018: PT Reference Range ChangeNew: 11.9-14.2 Previous: 11.7- 14.7RECOMMENDED COUMADIN/WARFARIN INR THERAPY RANGESSTANDARD DOSE: 2.0-3.0 Includes: PROPHYLAXIS for venous thrombosis, systemic embolization; TREATMENT for venous thrombosis and/or pulmonary embolus.HIGH RISK: Target INR is2.5-3.5 for patients wiht mechanical heart valves.CBC W/PLT COUNT & AUTO [id number] 08:21:00 Test Item Value Reference Range Comments WHITE BLOOD CELL COUNT (BEAKER) (test lvql=513) 10.0 K/ L 3.5-10.5 RED BLOOD CELL COUNT (BEAKER) (test vdko=423) 2.80 M/ L 4.63-6.08 HEMOGLOBIN (BEAKER) (test uxgu=513) 8.2 GM/DL 13.7-17.5 HEMATOCRIT (BEAKER) (test crab=844) 23.9 % 40.1-51.0 MEAN CORPUSCULAR VOLUME (BEAKER) (test wahy=949) 85.4 fL 79.0-92.2 MEAN CORPUSCULAR HEMOGLOBIN (BEAKER) (test 29.3 pg 25.7-32.2 bqsh=761) MEAN CORPUSCULAR HEMOGLOBIN CONC (BEAKER) (test 34.3 GM/DL 32.3-36.5 rypw=562) RED CELL DISTRIBUTION WIDTH (BEAKER) (test 15.6 % 11.6-14.4 mcxr=999) PLATELET COUNT (BEAKER) (test exkn=727) 201 K/CU MM 150-450 MEAN PLATELET VOLUME (BEAKER) (test gvdk=437) 10.1 fL 9.4-12.4 NUCLEATED RED BLOOD CELLS (BEAKER) (test 0 /100 WBC 0-0 ajod=446) NEUTROPHILS RELATIVE PERCENT (BEAKER) (test 81 % zpzf=094) LYMPHOCYTES RELATIVE PERCENT (BEAKER) (test 5 % qxab=183) MONOCYTES RELATIVE PERCENT (BEAKER) (test 10 % sunm=158) EOSINOPHILS RELATIVE PERCENT (BEAKER) (test 3 % iuyp=942) BASOPHILS RELATIVE PERCENT (BEAKER) (test 0 % bxyj=945) NEUTROPHILS ABSOLUTE COUNT (BEAKER) (test 8.08 K/ L 1.78-5.38 zrlb=057) LYMPHOCYTES ABSOLUTE COUNT (BEAKER) (test 0.54 K/ L 1.32-3.57 wheh=058) MONOCYTES ABSOLUTE COUNT (BEAKER) (test 0.97 K/ L 0.30-0.82 kggw=288) EOSINOPHILS ABSOLUTE COUNT (BEAKER) (test 0.28 K/ L 0.04-0.54 acxv=082) BASOPHILS ABSOLUTE COUNT (BEAKER) (test 0.02 K/ L 0.01-0.08 iaty=679) IMMATURE GRANULOCYTES-RELATIVE PERCENT (BEAKER) 1 % 0-1 (test ruva=3682) BASIC METABOLIC [id number] 07:24:00 Test Item Value Reference Range Comments SODIUM (BEAKER) (test 129 meq/L 136-145 pxdj=671) POTASSIUM (BEAKER) (test 3.7 meq/L 3.5-5.1 syai=853) CHLORIDE (BEAKER) (test 94 meq/L 98-107 tshg=694) CO2 (BEAKER) (test 25 meq/L 22-29 jrow=990) BLOOD UREA NITROGEN 74 mg/dL 7-21 (BEAKER) (test lkqo=477) CREATININE (BEAKER) (test 2.96 mg/dL 0.57-1.25 vkcp=594) GLUCOSE RANDOM (BEAKER) 121 mg/dL 70-105 (test hknf=985) CALCIUM (BEAKER) (test 8.6 mg/dL 8.4-10.2 rpkq=043) EGFR (BEAKER) (test 21 mL/min/1.73 sq m ESTIMATED GFR IS NOT rvyp=8870) ACCURATE CREATININE CLEARANCE IN PREDICTING GLOMERULAR FILTRATION RATE. ESTIMATED GFR IS NOT APPLICABLE FOR DIALYSIS PATIENTS. Fishing Rod Mechanic ID - NTPVANCOMYCIN LEVEL, [id number] 03:59:00 Test Item Value Reference Range Comments VANCOMYCIN RANDOM (BEAKER) (test ynhc=693) 17.8 ug/mL Reference Range: No NormalsOperator ID - RUDI [id number] 03:52:00 Test Item Value Reference Range Comments PHOSPHORUS (BEAKER) (test dmaz=181) 4.4 mg/dL 2.3-4.7 Fishing Rod Mechanic ID - RUDI LLACTATE DEHYDROGENASE (LDH)2019-06-05 03:52:00 Test Item Value Reference Range Comments LACTATE DEHYDROGENASE (BEAKER) (test yxfw=683) 968 U/L 125-220 Fishing Rod Mechanic ID - PIAYA LLACTIC ACID, [id number] 03:48:00 Test Item Value Reference Range Comments LACTATE BLOOD ARTERIAL (2) 0.8 mmol/L 0.5-2.2 Specimen slightly hemolyzed (BEAKER) (test clwa=9494) Fishing Rod Mechanic ID - RUDI [id number] 03:44:00 Test Item Value Reference Range Comments PARTIAL THROMBOPLASTIN TIME (BEAKER) (test 78.3 seconds 22.5-36.0 qnxt=844) OXYGEN SATURATION, [id number] 03:42:00 Test Item Value Reference Range Comments O2 SATURATION (MEASURED) (BEAKER) (test qjto=0359) 57.9 % RAD, CHEST, 1 VIEW, NON [id number] 03:35:00Reason for exam:->s/p ACBShould this be performed at the bedside?->YesFINAL REPORT RAD, CHEST, 1 VIEW, NON DEPT INDICATION: s/p ACB COMPARISON: Prior day' s exam FINDINGS: Portable frontal view of the chest. IMPRESSION: Support Lines: Right IJ Baldwin-Allison loops within the mid SVC level with tip terminating over the main pulmonary trunk. Consider repositioning accordingly. Right PICC terminates near the cavoatrial junction. Left chest ICD device. Intra-arterial balloon pump device is stable in appearance.Lungs and pleura: Interstitial and basilaropacities suggesting pulmonary edema and layering small pleural effusions and atelectasis stable in appearance. Pneumonitis should be excluded clinically. No pneumothorax.Heart and mediastinum: Stable enlarged cardiac silhouette. Additional findings: Bilateral neck stent catheters. Signed: Luis Fernando Grey MDReport Verified Date/Time: 06/05/2019 03:35:51 CBC (HEMOGRAM ONLY) 2019-06-05 03:30:00 Test Item Value Reference Range Comments WHITE BLOOD CELL COUNT (BEAKER) (test akfu=513) 9.5 K/ L 3.5-10.5 RED BLOOD CELL COUNT (BEAKER) (test pcxf=870) 2.63 M/ L 4.63-6.08 HEMOGLOBIN (BEAKER) (test juaa=929) 7.7 GM/DL 13.7-17.5 HEMATOCRIT (BEAKER) (test mixs=963) 22.5 % 40.1-51.0 MEAN CORPUSCULAR VOLUME (BEAKER) (test vqbz=922) 85.6 fL 79.0-92.2 MEAN CORPUSCULAR HEMOGLOBIN (BEAKER) (test 29.3 pg 25.7-32.2 plma=431) MEAN CORPUSCULAR HEMOGLOBIN CONC (BEAKER) (test 34.2 GM/DL 32.3-36.5 lozl=285) RED CELL DISTRIBUTION WIDTH (BEAKER) (test 15.6 % 11.6-14.4 ujdg=451) PLATELET COUNT (BEAKER) (test bbqw=534) 197 K/CU MM 150-450 MEAN PLATELET VOLUME (BEAKER) (test zzzf=300) 10.3 fL 9.4-12.4 NUCLEATED RED BLOOD CELLS (BEAKER) (test 0 /100 WBC 0-0 bzde=720) BASIC METABOLIC [id number] 01:17:00 Test Item Value Reference Range Comments SODIUM (BEAKER) (test 127 meq/L 136-145 aasn=585) POTASSIUM (BEAKER) (test 3.8 meq/L 3.5-5.1 Specimen slightly rwbz=366) hemolyzed CHLORIDE (BEAKER) (test 93 meq/L 98-107 ktdc=791) CO2 (BEAKER) (test 23 meq/L 22-29 ztza=508) BLOOD UREA NITROGEN 75 mg/dL 7-21 (BEAKER) (test wwud=752) CREATININE (BEAKER) (test 2.92 mg/dL 0.57-1.25 Specimen slightly zgij=426) hemolyzed GLUCOSE RANDOM (BEAKER) 121 mg/dL 70-105 (test ctsd=177) CALCIUM (BEAKER) (test 8.4 mg/dL 8.4-10.2 ulef=755) EGFR (BEAKER) (test 21 mL/min/1.73 sq m ESTIMATED GFR IS NOT ojvs=4145) ACCURATE CREATININE CLEARANCE IN PREDICTING GLOMERULAR FILTRATION RATE. ESTIMATED GFR IS NOT APPLICABLE FOR DIALYSIS PATIENTS. Fishing Rod Mechanic ID - PIAYA [id number] 01:01:00 Test Item Value Reference Range Comments MAGNESIUM (BEAKER) (test 2.1 mg/dL 1.6-2.6 Specimen slightly hemolyzed uzbe=125) Fishing Rod Mechanic ID - PIAYA LBASIC METABOLIC [id number] 16:20:00 Test Item Value Reference Range Comments SODIUM (BEAKER) (test 130 meq/L 136-145 oeej=606) POTASSIUM (BEAKER) (test 3.4 meq/L 3.5-5.1 mirh=312) CHLORIDE (BEAKER) (test 95 meq/L 98-107 ibhf=807) CO2 (BEAKER) (test 25 meq/L 22-29 ougy=606) BLOOD UREA NITROGEN 73 mg/dL 7-21 (BEAKER) (test fbmx=718) CREATININE (BEAKER) (test 3.02 mg/dL 0.57-1.25 hngm=821) GLUCOSE RANDOM (BEAKER) 137 mg/dL 70-105 (test ozea=047) CALCIUM (BEAKER) (test 8.3 mg/dL 8.4-10.2 iubu=288) EGFR (BEAKER) (test 21 mL/min/1.73 sq m ESTIMATED GFR IS NOT zihg=5569) ACCURATE CREATININE CLEARANCE IN PREDICTING GLOMERULAR FILTRATION RATE. ESTIMATED GFR IS NOT APPLICABLE FOR DIALYSIS PATIENTS. Fishing Rod Mechanic ID - [facility] [id number] 16:14:00 Test Item Value Reference Range Comments MAGNESIUM (BEAKER) (test erzu=198) 2.1 mg/dL 1.6-2.6 Fishing Rod Mechanic ID - [facility] [id number] 16:05:00 Test Item Value Reference Range Comments PARTIAL THROMBOPLASTIN TIME (BEAKER) (test 75.2 seconds 22.5-36.0 ivkf=117) OXYGEN SATURATION, [id number] 14:17:00 Test Item Value Reference Range Comments O2 SATURATION (MEASURED) (BEAKER) (test qxnv=8530) 59.0 % LACTATE DEHYDROGENASE (LDH)2019-06-04 13:18:00 Test Item Value Reference Range Comments LACTATE DEHYDROGENASE (BEAKER) (test xarf=966) 767 U/L 125-220 Fishing Rod Mechanic ID - [facility] [id number] 11:17:00 Test Item Value Reference Range Comments PARTIAL THROMBOPLASTIN TIME (BEAKER) (test 75.1 seconds 22.5-36.0 gafy=269) VANCOMYCIN LEVEL, [id number] 10:21:00 Test Item Value Reference Range Comments VANCOMYCIN RANDOM (BEAKER) (test rlhd=353) 24.3 ug/mL Reference Range: No NormalsOperator ID - [facility] CBASIC METABOLIC [id number] 06 :10:00 Test Item Value Reference Range Comments SODIUM (BEAKER) (test 131 meq/L 136-145 bbcf=260) POTASSIUM (BEAKER) (test 3.7 meq/L 3.5-5.1 rlza=421) CHLORIDE (BEAKER) (test 96 meq/L 98-107 jiyu=690) CO2 (BEAKER) (test 22 meq/L 22-29 kust=588) BLOOD UREA NITROGEN 76 mg/dL 7-21 (BEAKER) (test atry=338) CREATININE (BEAKER) (test 3.28 mg/dL 0.57-1.25 dwwe=218) GLUCOSE RANDOM (BEAKER) 133 mg/dL 70-105 (test akbb=437) CALCIUM (BEAKER) (test 8.7 mg/dL 8.4-10.2 gedq=650) EGFR (BEAKER) (test 19 mL/min/1.73 sq m ESTIMATED GFR IS NOT gkgz=4647) ACCURATE CREATININE CLEARANCE IN PREDICTING GLOMERULAR FILTRATION RATE. ESTIMATED GFR IS NOT APPLICABLE FOR DIALYSIS PATIENTS. Fishing Rod Mechanic ID - RUDI [id number] 06:07:00 Test Item Value Reference Range Comments PHOSPHORUS (BEAKER) (test vckl=941) 5.7 mg/dL 2.3-4.7 Fishing Rod Mechanic ID - RUDI [id number] 06:07:00 Test Item Value Reference Range Comments MAGNESIUM (BEAKER) (test nxps=225) 2.2 mg/dL 1.6-2.6 Fishing Rod Mechanic ID - RUDI LLACTATE DEHYDROGENASE (LDH)2019-06-04 06:07:00 Test Item Value Reference Range Comments LACTATE DEHYDROGENASE (BEAKER) (test fmgr=971) 732 U/L 125-220 Fishing Rod Mechanic ID - RUDI LOXYGEN SATURATION, [id number] 05:12:00 Test Item Value Reference Range Comments O2 SATURATION (MEASURED) (BEAKER) (test bjlm=4633) 61.9 % LACTIC ACID, [id number] 05:09:00 Test Item Value Reference Range Comments LACTATE BLOOD ARTERIAL (2) (BEAKER) (test 1.0 mmol/L 0.5-2.2 ddtk=8444) Fishing Rod Mechanic ID - RUDI LBLOOD GAS, [id number] 05:06:00 Test Item Value Reference Range Comments PH ARTERIAL (BEAKER) (test fcpv=683) 7.50 7.35-7.45 PCO2 ARTERIAL (BEAKER) (test kphf=818) 32 mmHg 35-45 PO2 ARTERIAL (BEAKER) (test fxcc=003) 81 mmHg 80-90 O2 SATURATION ARTERIAL (BEAKER) (test czls=266) 97.0 % 96.0-97.0 HCO3 ARTERIAL (BEAKER) (test dzyz=480) 24 mmol/L 21-29 BASE EXCESS ARTERIAL (BEAKER) (test czwj=163) 0.9 mmol/L -2.0-3.0 PATIENT TEMPERATURE (BEAKER) (test zdoi=1238) 36.8 C FIO2 (BEAKER) (test hznn=6598) 60.0 % [id number] 05:05:00 Test Item Value Reference Range Comments PARTIAL THROMBOPLASTIN TIME (BEAKER) (test 63.1 seconds 22.5-36.0 qahg=619) CBC (HEMOGRAM ONLY)2019-06-04 05:02:00 Test Item Value Reference Range Comments WHITE BLOOD CELL COUNT (BEAKER) (test nbwk=085) 9.3 K/ L 3.5-10.5 RED BLOOD CELL COUNT (BEAKER) (test twbz=322) 2.87 M/ L 4.63-6.08 HEMOGLOBIN (BEAKER) (test ycsf=957) 8.5 GM/DL 13.7-17.5 HEMATOCRIT (BEAKER) (test ieam=409) 24.5 % 40.1-51.0 MEAN CORPUSCULAR VOLUME (BEAKER) (test ckco=826) 85.4 fL 79.0-92.2 MEAN CORPUSCULAR HEMOGLOBIN (BEAKER) (test 29.6 pg 25.7-32.2 hoiu=209) MEAN CORPUSCULAR HEMOGLOBIN CONC (BEAKER) (test 34.7 GM/DL 32.3-36.5 ggza=931) RED CELL DISTRIBUTION WIDTH (BEAKER) (test 15.4 % 11.6-14.4 ifxi=327) PLATELET COUNT (BEAKER) (test vcko=857) 217 K/CU MM 150-450 MEAN PLATELET VOLUME (BEAKER) (test xchu=549) 10.2 fL 9.4-12.4 NUCLEATED RED BLOOD CELLS (BEAKER) (test 0 /100 WBC 0-0 rinw=323) RAD, CHEST, 1 VIEW, NON [id number] 04:21:00Reason for exam:->s/p ACBShould this be performed at the bedside?->YesFINAL REPORT RAD, CHEST, 1 VIEW, NON DEPT INDICATION: s/p ACB COMPARISON: Prior day' s exam FINDINGS: Portable frontal view of the chest. IMPRESSION: Support Lines: Extubation.Removal of enteric tube. Right PICC, intraventricular assist device, and right IJ Baldwin-Allison catheterstable. Lungs and pleura: Increased pulmonary edema. Bilateral pleural effusions and basilar atelectasis are stable in appearance. No pneumothorax.Heart and mediastinum: Stable cardiomegaly. Additionalfindings: None. Signed: Luis Fernando Grey MDReport Verified Date/Time: 06/04/2019 04:21:15 Electronically signed by: LUIS FERNANDO GREY MD on 04:21 AMBASIC METABOLIC [id number] 00:28:00 Test Item Value Reference Range Comments SODIUM (BEAKER) (test 130 meq/L 136-145 elbg=345) POTASSIUM (BEAKER) (test 3.8 meq/L 3.5-5.1 jvdx=924) CHLORIDE (BEAKER) (test 95 meq/L 98-107 qtbl=673) CO2 (BEAKER) (test 23 meq/L 22-29 yvln=476) BLOOD UREA NITROGEN 78 mg/dL 7-21 (BEAKER) (test yyjv=036) CREATININE (BEAKER) (test 3.42 mg/dL 0.57-1.25 sany=619) GLUCOSE RANDOM (BEAKER) 144 mg/dL 70-105 (test picq=352) CALCIUM (BEAKER) (test 8.3 mg/dL 8.4-10.2 dzqt=675) EGFR (BEAKER) (test 18 mL/min/1.73 sq m ESTIMATED GFR IS NOT dfzw=1266) ACCURATE CREATININE CLEARANCE IN PREDICTING GLOMERULAR FILTRATION RATE. ESTIMATED GFR IS NOT APPLICABLE FOR DIALYSIS PATIENTS. Fishing Rod Mechanic ID - [id number] 00:22:00 Test Item Value Reference Range Comments PARTIAL THROMBOPLASTIN TIME (BEAKER) (test 108.8 seconds 22.5-36.0 awbb=745) [id number] 00:08:00 Test Item Value Reference Range Comments MAGNESIUM (BEAKER) (test mbwp=833) 2.2 mg/dL 1.6-2.6 Fishing Rod Mechanic ID - BSOXYGEN SATURATION, [id number] 18:47:00 Test Item Value Reference Range Comments O2 SATURATION (MEASURED) (BEAKER) (test hvcp=7554) 60.0 % BLOOD GAS, [id number] 18:28:00 Test Item Value Reference Range Comments PH ARTERIAL (BEAKER) (test ehwb=197) 7.49 7.35-7.45 PCO2 ARTERIAL (BEAKER) (test ybjy=086) 31 mmHg 35-45 PO2 ARTERIAL (BEAKER) (test kzes=491) 95 mmHg 80-90 O2 SATURATION ARTERIAL (BEAKER) (test zdtk=912) 97.7 % 96.0-97.0 HCO3 ARTERIAL (BEAKER) (test wfbz=428) 23 mmol/L 21-29 BASE EXCESS ARTERIAL (BEAKER) (test xdou=634) 0.2 mmol/L -2.0-3.0 PATIENT TEMPERATURE (BEAKER) (test lvcu=4060) 37.4 C FIO2 (BEAKER) (test xqxu=6326) 80.0 % BASIC METABOLIC [id number] 17:29:00 Test Item Value Reference Range Comments SODIUM (BEAKER) (test 130 meq/L 136-145 wfdi=821) POTASSIUM (BEAKER) (test 3.9 meq/L 3.5-5.1 rzxe=453) CHLORIDE (BEAKER) (test 97 meq/L 98-107 ysyo=689) CO2 (BEAKER) (test 23 meq/L 22-29 xqup=161) BLOOD UREA NITROGEN 73 mg/dL 7-21 (BEAKER) (test lzln=329) CREATININE (BEAKER) (test 3.56 mg/dL 0.57-1.25 xxyx=865) GLUCOSE RANDOM (BEAKER) 143 mg/dL 70-105 (test uvut=982) CALCIUM (BEAKER) (test 8.5 mg/dL 8.4-10.2 rdek=359) EGFR (BEAKER) (test 17 mL/min/1.73 sq m ESTIMATED GFR IS NOT pgwh=7461) ACCURATE CREATININE CLEARANCE IN PREDICTING GLOMERULAR FILTRATION RATE. ESTIMATED GFR IS NOT APPLICABLE FOR DIALYSIS PATIENTS. Fishing Rod Mechanic ID - [id number] 17:27:00 Test Item Value Reference Range Comments MAGNESIUM (BEAKER) (test zhij=605) 2.3 mg/dL 1.6-2.6 Fishing Rod Mechanic ID - [id number] 17:12:00 Test Item Value Reference Range Comments PARTIAL THROMBOPLASTIN TIME (BEAKER) (test 93.2 seconds 22.5-36.0 wozs=558) BLOOD GAS, [id number] 12:33:00 Test Item Value Reference Range Comments PH ARTERIAL (BEAKER) (test oeyu=938) 7.49 7.35-7.45 PCO2 ARTERIAL (BEAKER) (test bbps=828) 32 mmHg 35-45 PO2 ARTERIAL (BEAKER) (test gtpf=726) 89 mmHg 80-90 O2 SATURATION ARTERIAL (BEAKER) (test navb=737) 97.2 % 96.0-97.0 HCO3 ARTERIAL (BEAKER) (test zduc=032) 24 mmol/L 21-29 BASE EXCESS ARTERIAL (BEAKER) (test jnez=241) 0.8 mmol/L -2.0-3.0 PATIENT TEMPERATURE (BEAKER) (test fnyn=7808) 37.8 C FIO2 (BEAKER) (test ugpn=3952) 80.0 % OXYGEN SATURATION, [id number] 11:47:00 Test Item Value Reference Range Comments O2 SATURATION (MEASURED) (BEAKER) (test yzsp=3952) 47.0 % BLOOD GAS, [id number] 11:34:00 Test Item Value Reference Range Comments PH ARTERIAL (BEAKER) (test xjrv=684) 7.51 7.35-7.45 PCO2 ARTERIAL (BEAKER) (test rfcn=906) 32 mmHg 35-45 PO2 ARTERIAL (BEAKER) (test opno=872) 64 mmHg 80-90 O2 SATURATION ARTERIAL (BEAKER) (test pynp=795) 93.7 % 96.0-97.0 HCO3 ARTERIAL (BEAKER) (test qhwk=806) 24 mmol/L 21-29 BASE EXCESS ARTERIAL (BEAKER) (test rzyx=305) 1.8 mmol/L -2.0-3.0 PATIENT TEMPERATURE (BEAKER) (test dgas=0444) 37.9 C FIO2 (BEAKER) (test fdkl=9302) 44.0 % [id number] 09:56:00 Test Item Value Reference Range Comments PARTIAL THROMBOPLASTIN TIME (BEAKER) (test 39.8 seconds 22.5-36.0 lbdj=849) 6 hours after starting heparin infusion and as indicated per sliding scaleBASIC METABOLIC [id number] 08:39:00 Test Item Value Reference Range Comments SODIUM (BEAKER) (test 129 meq/L 136-145 wxrd=568) POTASSIUM (BEAKER) (test 4.4 meq/L 3.5-5.1 pouz=900) CHLORIDE (BEAKER) (test 94 meq/L 98-107 ddkn=605) CO2 (BEAKER) (test 23 meq/L 22-29 zuhj=712) BLOOD UREA NITROGEN 75 mg/dL 7-21 (BEAKER) (test upkq=730) CREATININE (BEAKER) (test 3.65 mg/dL 0.57-1.25 aags=578) GLUCOSE RANDOM (BEAKER) 134 mg/dL 70-105 (test ggly=709) CALCIUM (BEAKER) (test 8.4 mg/dL 8.4-10.2 vmgc=732) EGFR (BEAKER) (test 17 mL/min/1.73 sq m ESTIMATED GFR IS NOT pbgq=6047) ACCURATE CREATININE CLEARANCE IN PREDICTING GLOMERULAR FILTRATION RATE. ESTIMATED GFR IS NOT APPLICABLE FOR DIALYSIS PATIENTS. Fishing Rod Mechanic ID - [facility] [id number] 08:37:00 Test Item Value Reference Range Comments MAGNESIUM (BEAKER) (test srek=127) 2.3 mg/dL 1.6-2.6 Fishing Rod Mechanic ID - [facility] ELVIN, CHEST, 1 VIEW, NON [id number] 07:39:00Reason for exam:->s/p ACBShould this be performed at the bedside?->YesFINAL REPORT INDICATION: s/p ACB TECHNIQUE: Chest radiograph, single view, portable technique. FINDINGS / IMPRESSION: Patient is status post median sternotomy and cardiac surgery. Endotracheal tube is high in position, terminating 7 cm above the scarlet. Other support lines and tubes, including intraventricular cyst device, are unchanged and appear satisfactory. Stable enlargement of the heart shadow since June 02. Bilateral small pleural effusions unchanged. No pneumothorax. Signed: Rama Carlin MDReport Verified Date/Time: 06/03/2019 07:39:25 Reading Location: [facility] [id number] [facility] Consult Reading Room BASIC METABOLIC [id number] 06:11:00 Test Item Value Reference Range Comments SODIUM (BEAKER) (test 128 meq/L 136-145 pwwv=861) POTASSIUM (BEAKER) (test 4.4 meq/L 3.5-5.1 bejz=229) CHLORIDE (BEAKER) (test 96 meq/L 98-107 prni=914) CO2 (BEAKER) (test 21 meq/L 22-29 crfw=328) BLOOD UREA NITROGEN 70 mg/dL 7-21 (BEAKER) (test dugt=760) CREATININE (BEAKER) (test 3.48 mg/dL 0.57-1.25 ofsp=465) GLUCOSE RANDOM (BEAKER) 140 mg/dL 70-105 (test phbp=575) CALCIUM (BEAKER) (test 8.8 mg/dL 8.4-10.2 swfz=064) EGFR (BEAKER) (test 17 mL/min/1.73 sq m ESTIMATED GFR IS NOT bdyi=2582) ACCURATE CREATININE CLEARANCE IN PREDICTING GLOMERULAR FILTRATION RATE. ESTIMATED GFR IS NOT APPLICABLE FOR DIALYSIS PATIENTS. Fishing Rod Mechanic ID - MARISABEL [id number] 05:02:00 Test Item Value Reference Range Comments PHOSPHORUS (BEAKER) (test zzxo=232) 6.0 mg/dL 2.3-4.7 Fishing Rod Mechanic ID - MARISABEL [id number] 05:02:00 Test Item Value Reference Range Comments MAGNESIUM (BEAKER) (test dlfb=822) 2.5 mg/dL 1.6-2.6 Fishing Rod Mechanic ID - MARISABEL MLACTATE DEHYDROGENASE (LDH)2019-06-03 05:02:00 Test Item Value Reference Range Comments LACTATE DEHYDROGENASE (BEAKER) (test junt=425) 496 U/L 125-220 Fishing Rod Mechanic ID - MARISABEL MBLOOD GAS, [id number] 04:18:00 Test Item Value Reference Range Comments PH ARTERIAL (BEAKER) (test prnc=733) 7.48 7.35-7.45 PCO2 ARTERIAL (BEAKER) (test crlv=380) 32 mmHg 35-45 PO2 ARTERIAL (BEAKER) (test aduw=181) 83 mmHg 80-90 O2 SATURATION ARTERIAL (BEAKER) (test jtku=877) 96.6 % 96.0-97.0 HCO3 ARTERIAL (BEAKER) (test eqvf=473) 23 mmol/L 21-29 BASE EXCESS ARTERIAL (BEAKER) (test bapy=369) 0.5 mmol/L -2.0-3.0 PATIENT TEMPERATURE (BEAKER) (test gubc=6185) 37.9 C FIO2 (BEAKER) (test vpmc=8093) 40.0 % OXYGEN SATURATION, [id number] 04:17:00 Test Item Value Reference Range Comments O2 SATURATION (MEASURED) (BEAKER) (test iaup=9838) 50.3 % CALCIUM, [id number] 04:16:00 Test Item Value Reference Range Comments CALCIUM IONIZED (BEAKER) (test sgvz=237) 1.13 mmol/L 1.12-1.27 PH, BLOOD (BEAKER) (test untv=5286) 7.50 LACTIC ACID, [id number] 04:16:00 Test Item Value Reference Range Comments LACTATE BLOOD ARTERIAL (2) (BEAKER) (test 1.0 mmol/L 0.5-2.2 qxwq=5936) Fishing Rod Mechanic ID - MARISABEL [id number] 04:14:00 Test Item Value Reference Range Comments PARTIAL THROMBOPLASTIN TIME (BEAKER) (test 37.8 seconds 22.5-36.0 zzfa=648) CBC (HEMOGRAM ONLY)2019-06-03 04:06:00 Test Item Value Reference Range Comments WHITE BLOOD CELL COUNT (BEAKER) (test xayb=966) 9.2 K/ L 3.5-10.5 RED BLOOD CELL COUNT (BEAKER) (test jkao=790) 3.14 M/ L 4.63-6.08 HEMOGLOBIN (BEAKER) (test vhrz=461) 9.2 GM/DL 13.7-17.5 HEMATOCRIT (BEAKER) (test evco=196) 26.9 % 40.1-51.0 MEAN CORPUSCULAR VOLUME (BEAKER) (test sypg=911) 85.7 fL 79.0-92.2 MEAN CORPUSCULAR HEMOGLOBIN (BEAKER) (test 29.3 pg 25.7-32.2 clgi=392) MEAN CORPUSCULAR HEMOGLOBIN CONC (BEAKER) (test 34.2 GM/DL 32.3-36.5 fsat=530) RED CELL DISTRIBUTION WIDTH (BEAKER) (test 15.3 % 11.6-14.4 vnbd=691) PLATELET COUNT (BEAKER) (test prct=194) 239 K/CU MM 150-450 MEAN PLATELET VOLUME (BEAKER) (test pgao=073) 10.2 fL 9.4-12.4 NUCLEATED RED BLOOD CELLS (BEAKER) (test 0 /100 WBC 0-0 hrki=254) LACTIC ACID, [id number] 02:53:00 Test Item Value Reference Range Comments LACTATE BLOOD ARTERIAL (2) (BEAKER) (test 1.0 mmol/L 0.5-2.2 baes=3869) Fishing Rod Mechanic ID - GALAPBASIC METABOLIC [id number] 00:37:00 Test Item Value Reference Range Comments SODIUM (BEAKER) (test 128 meq/L 136-145 rene=854) POTASSIUM (BEAKER) (test 4.5 meq/L 3.5-5.1 hbgk=197) CHLORIDE (BEAKER) (test 96 meq/L 98-107 sjvr=519) CO2 (BEAKER) (test 21 meq/L 22-29 fkug=200) BLOOD UREA NITROGEN 70 mg/dL 7-21 (BEAKER) (test iqzc=658) CREATININE (BEAKER) (test 3.64 mg/dL 0.57-1.25 qvom=070) GLUCOSE RANDOM (BEAKER) 138 mg/dL 70-105 (test nafq=889) CALCIUM (BEAKER) (test 9.1 mg/dL 8.4-10.2 kpoq=442) EGFR (BEAKER) (test 17 mL/min/1.73 sq m ESTIMATED GFR IS NOT vonj=0777) ACCURATE CREATININE CLEARANCE IN PREDICTING GLOMERULAR FILTRATION RATE. ESTIMATED GFR IS NOT APPLICABLE FOR DIALYSIS PATIENTS. Fishing Rod Mechanic ID - [id number] 00:30:00 Test Item Value Reference Range Comments MAGNESIUM (BEAKER) (test esig=979) 1.9 mg/dL 1.6-2.6 Fishing Rod Mechanic ID - GALAPBLOOD GAS, [id number] 00:25:00 Test Item Value Reference Range Comments PH ARTERIAL (BEAKER) (test mqey=302) 7.47 7.35-7.45 PCO2 ARTERIAL (BEAKER) (test vdkc=799) 33 mmHg 35-45 PO2 ARTERIAL (BEAKER) (test tzfr=030) 89 mmHg 80-90 O2 SATURATION ARTERIAL (BEAKER) (test cbpm=493) 97.0 % 96.0-97.0 HCO3 ARTERIAL (BEAKER) (test droo=577) 23 mmol/L 21-29 BASE EXCESS ARTERIAL (BEAKER) (test rnyo=909) 0.3 mmol/L -2.0-3.0 PATIENT TEMPERATURE (BEAKER) (test ratw=3051) 37.9 C FIO2 (BEAKER) (test adql=1255) 60.0 % OXYGEN SATURATION, [id number] 00:24:00 Test Item Value Reference Range Comments O2 SATURATION (MEASURED) (BEAKER) (test nfgz=2920) 48.0 % CBC W/PLT COUNT & AUTO [id number] 23:07:00 Test Item Value Reference Range Comments WHITE BLOOD CELL COUNT (BEAKER) (test dggr=689) 9.1 K/ L 3.5-10.5 RED BLOOD CELL COUNT (BEAKER) (test frcn=771) 3.06 M/ L 4.63-6.08 HEMOGLOBIN (BEAKER) (test enoc=631) 8.9 GM/DL 13.7-17.5 HEMATOCRIT (BEAKER) (test kzqn=442) 26.3 % 40.1-51.0 MEAN CORPUSCULAR VOLUME (BEAKER) (test rmua=433) 85.9 fL 79.0-92.2 MEAN CORPUSCULAR HEMOGLOBIN (BEAKER) (test 29.1 pg 25.7-32.2 affc=611) MEAN CORPUSCULAR HEMOGLOBIN CONC (BEAKER) (test 33.8 GM/DL 32.3-36.5 mcst=275) RED CELL DISTRIBUTION WIDTH (BEAKER) (test 15.2 % 11.6-14.4 okca=993) PLATELET COUNT (BEAKER) (test sanz=184) 236 K/CU MM 150-450 MEAN PLATELET VOLUME (BEAKER) (test ueqj=268) 10.1 fL 9.4-12.4 NUCLEATED RED BLOOD CELLS (BEAKER) (test 0 /100 WBC 0-0 umhq=449) NEUTROPHILS RELATIVE PERCENT (BEAKER) (test 81 % pcpm=427) LYMPHOCYTES RELATIVE PERCENT (BEAKER) (test 5 % maan=232) MONOCYTES RELATIVE PERCENT (BEAKER) (test 11 % qqbs=762) EOSINOPHILS RELATIVE PERCENT (BEAKER) (test 2 % vnjm=290) BASOPHILS RELATIVE PERCENT (BEAKER) (test 0 % kxdb=306) NEUTROPHILS ABSOLUTE COUNT (BEAKER) (test 7.40 K/ L 1.78-5.38 kswj=052) LYMPHOCYTES ABSOLUTE COUNT (BEAKER) (test 0.43 K/ L 1.32-3.57 vqih=407) MONOCYTES ABSOLUTE COUNT (BEAKER) (test 1.04 K/ L 0.30-0.82 takr=726) EOSINOPHILS ABSOLUTE COUNT (BEAKER) (test 0.20 K/ L 0.04-0.54 iasc=009) BASOPHILS ABSOLUTE COUNT (BEAKER) (test 0.02 K/ L 0.01-0.08 pbqi=671) IMMATURE GRANULOCYTES-RELATIVE PERCENT (BEAKER) 0 % 0-1 (test kndn=9915) BLOOD GAS, [id number] 21:37:00 Test Item Value Reference Range Comments PH ARTERIAL (BEAKER) (test yqwe=343) 7.47 7.35-7.45 PCO2 ARTERIAL (BEAKER) (test ncay=136) 32 mmHg 35-45 PO2 ARTERIAL (BEAKER) (test cbcj=095) 96 mmHg 80-90 O2 SATURATION ARTERIAL (BEAKER) (test vlmq=370) 97.5 % 96.0-97.0 HCO3 ARTERIAL (BEAKER) (test ckrs=224) 23 mmol/L 21-29 BASE EXCESS ARTERIAL (BEAKER) (test kida=447) -0.3 mmol/L -2.0-3.0 PATIENT TEMPERATURE (BEAKER) (test dqgc=5434) 37.8 C FIO2 (BEAKER) (test nenq=0301) 60.0 % GLUCOSE-STAT [id number] 21:37:00 Test Item Value Reference Range Comments GLUCOSE RANDOM (BEAKER) (test jsja=938) 141 mg/dL 70-110 SODIUM NA-STAT [id number] 21:37:00 Test Item Value Reference Range Comments SODIUM (BEAKER) (test nuuy=184) 126 meq/L 135-148 HGB/HCT (H&H) - STAT [id number] 21:37:00 Test Item Value Reference Range Comments HEMOGLOBIN (BEAKER) (test lfaw=931) 9.6 g/dL 13.0-16.8 HEMATOCRIT (BEAKER) (test kgcn=287) 28.0 % 40.0-50.0 POTASSIUM-STAT [id number] 21:33:00 Test Item Value Reference Range Comments POTASSIUM (BEAKER) (test qthx=665) 4.2 meq/L 3.6-5.5 OXYGEN SATURATION, [id number] 21:32:00 Test Item Value Reference Range Comments O2 SATURATION (MEASURED) (BEAKER) (test fltb=5514) 47.8 % THROMBOELASTOGRAPH (TEG)2019-06-02 18:42:00 Test Item Value Reference Range Comments TEG ACTIVATED CLOTTING TIME (BEAKER) (test 4.1 minutes 4.0-7.0 yjco=9580) TEG FIBRINOGEN ACTIVITY (BEAKER) (test 78.4 degrees 61.0-73.0 nepw=4673) TEG PLT. AGGREGATION (BEAKER) (test eejm=0787) 78.2 MM 55.0-65.0 TEG FIBRINOLYSIS (BEAKER) (test tdiz=9082) 0.0 % 0.0-5.0 TGH ACTIVATED CLOTTING TIME (BEAKER) (test 3.8 minutes 4.0-7.0 fvpn=8110) TGH FIBRINOGEN ACTIVITY (BEAKER) (test 78.0 degrees 61.0-73.0 zniy=5258) TGH PLT. AGGREGATION (BEAKER) (test ftex=1578) 76.2 MM 55.0-65.0 TGH FIBRINOLYSIS (BEAKER) (test xjqx=2138) 0.2 % 0.0-5.0 [id number] 17:46:00 Test Item Value Reference Range Comments PARTIAL THROMBOPLASTIN TIME (BEAKER) (test 41.9 seconds 22.5-36.0 xtgv=341) BASIC METABOLIC [id number] 17:46:00 Test Item Value Reference Range Comments SODIUM (BEAKER) (test 130 meq/L 136-145 kbzx=778) POTASSIUM (BEAKER) (test 4.4 meq/L 3.5-5.1 hiqg=197) CHLORIDE (BEAKER) (test 95 meq/L 98-107 tsfu=029) CO2 (BEAKER) (test 25 meq/L 22-29 vdjx=389) BLOOD UREA NITROGEN 68 mg/dL 7-21 (BEAKER) (test rtex=134) CREATININE (BEAKER) (test 3.70 mg/dL 0.57-1.25 jpii=131) GLUCOSE RANDOM (BEAKER) 158 mg/dL 70-105 (test boob=921) CALCIUM (BEAKER) (test 9.6 mg/dL 8.4-10.2 rqbd=741) EGFR (BEAKER) (test 16 mL/min/1.73 sq m ESTIMATED GFR IS NOT trel=7369) ACCURATE CREATININE CLEARANCE IN PREDICTING GLOMERULAR FILTRATION RATE. ESTIMATED GFR IS NOT APPLICABLE FOR DIALYSIS PATIENTS. Fishing Rod Mechanic ID - MEERA [id number] 17:25:00 Test Item Value Reference Range Comments MAGNESIUM (BEAKER) (test dzsz=023) 1.8 mg/dL 1.6-2.6 Fishing Rod Mechanic ID - MEERA [id number] 16:37:00 Test Item Value Reference Range Comments ACTIVATED CLOTTING TIME 213 sec Reference Range: 74-137 (BEAKER) (test bnkr=659) seconds, Baseline/TESTED AT [address] [address] [id number] 16:37:00 Test Item Value Reference Range Comments ACTIVATED CLOTTING TIME 158 sec Reference Range: 74-137 (BEAKER) (test nynb=165) seconds, Baseline/TESTED AT [address] [address] THROMBOELASTOGRAPH (TEG)2019-06-02 14:24:00 Test Item Value Reference Range Comments TEG ACTIVATED CLOTTING TIME (BEAKER) 61.4 minutes 4.0-7.0 NO CLOT DETECTED (test xatm=2122) TEG FIBRINOGEN ACTIVITY (BEAKER) (test NO CLOT DETECTED jows=6248) TEG PLT. AGGREGATION (BEAKER) (test NO CLOT DETECTED nuat=9598) TEG FIBRINOLYSIS (BEAKER) (test NO CLOT DETECTED zfvd=1588) TGH ACTIVATED CLOTTING TIME (BEAKER) 8.4 minutes 4.0-7.0 (test ppgy=7182) TGH FIBRINOGEN ACTIVITY (BEAKER) (test 75.2 degrees 61.0-73.0 tdqj=2664) TGH PLT. AGGREGATION (BEAKER) (test 72.4 MM 55.0-65.0 grme=1896) TGH FIBRINOLYSIS (BEAKER) (test 0.8 % 0.0-5.0 okhr=2131) TROPONIN [id number] 12:53:00 Test Item Value Reference Range Comments TROPONIN I (BEAKER) (test ndrm=705) 1.18 ng/mL 0.00-0.03 Troponin I (TnI) levels must [...] failure, acidosis, acute neurological disease, and persistent tachyarrhythmia.Fishing Rod Mechanic ID - MELLY MUNROE, CHEST, 1 VIEW, NON [id number] 12:45:00Reason for exam:->s/p intubationShould this be performed at the bedside?->YesFINAL REPORT CLINICAL HISTORY: s/p intubation TECHNIQUE: 1 view of the chest. COMPARISON: IMPRESSION: There is a new ETT terminating approximately 9 cm above the scarlet. There is a new nasogastric tube below the diaphragm. There is a new Baldwin -Allison catheter with the tip in the pulmonary outflow tract There is a new Impella device in the left lower heart. The right PICC line is unchanged. Bilateral airspace opacities and right greater than left pleural effusions are again seen. The cardiomediastinal silhouette is magnified by technique with sternotomy wires and a pacemaker. Signed: Blanquita Posada MDReport Verified Date/ Time: 06/02/2019 12:45:16 Reading Location: [facility] Radiology Reading Room BASI METABOLIC [id number] 12:41:00 Test Item Value Reference Range Comments SODIUM (BEAKER) (test 127 meq/L 136-145 yccu=452) POTASSIUM (BEAKER) (test 4.1 meq/L 3.5-5.1 desn=126) CHLORIDE (BEAKER) (test 94 meq/L 98-107 qayz=629) CO2 (BEAKER) (test 25 meq/L 22-29 lybi=830) BLOOD UREA NITROGEN 69 mg/dL 7-21 (BEAKER) (test zfef=680) CREATININE (BEAKER) (test 3.75 mg/dL 0.57-1.25 eity=534) GLUCOSE RANDOM (BEAKER) 153 mg/dL 70-105 (test ajmm=697) CALCIUM (BEAKER) (test 9.4 mg/dL 8.4-10.2 pbjt=884) EGFR (BEAKER) (test 16 mL/min/1.73 sq m ESTIMATED GFR IS NOT pqme=2055) ACCURATE CREATININE CLEARANCE IN PREDICTING GLOMERULAR FILTRATION RATE. ESTIMATED GFR IS NOT APPLICABLE FOR DIALYSIS PATIENTS. Fishing Rod Mechanic ID Sharmila PICKARD FPT/[id number] 12:41:00 Test Item Value Reference Range Comments PROTIME (BEAKER) (test ttzg=076) 18.7 seconds 11.9-14.2 INR (BEAKER) (test vqhu=325) 1.6 <=5.9 PARTIAL THROMBOPLASTIN TIME (BEAKER) (test > seconds 22.5-36.0 yoxz=536) Effective 10/12/2018: PT Reference Range ChangeNew: 11.9-14.2 Previous: 11.7- 14.7RECOMMENDED COUMADIN/WARFARIN INR THERAPY RANGESSTANDARD DOSE: 2.0-3.0 Includes: PROPHYLAXIS for venous thrombosis, systemic embolization; TREATMENT for venous thrombosis and/or pulmonary embolus.HIGH RISK: Target INR is2.5-3.5 for patients wiht mechanical heart valves.[id number] 12:38:00 Test Item Value Reference Range Comments PHOSPHORUS (BEAKER) (test kbsk=201) 6.1 mg/dL 2.3-4.7 Fishing Rod Mechanic ID MELLY [id number] 12:38:00 Test Item Value Reference Range Comments MAGNESIUM (BEAKER) (test dkxk=196) 2.0 mg/dL 1.6-2.6 Fishing Rod Mechanic ID MELLY FHEPATIC FUNCTION [id number] 12:38:00 Test Item Value Reference Range Comments TOTAL PROTEIN (BEAKER) (test rzzg=343) 5.7 gm/dL 6.0-8.3 ALBUMIN (BEAKER) (test llty=3082) 2.8 g/dL 3.5-5.0 BILIRUBIN TOTAL (BEAKER) (test tzvb=996) 1.3 mg/dL 0.2-1.2 BILIRUBIN DIRECT (BEAKER) (test hqmq=574) 0.9 mg/dL 0.1-0.5 ALKALINE PHOSPHATASE (BEAKER) (test hzvq=022) 117 U/L 40-150 AST (SGOT) (BEAKER) (test ccps=963) 31 U/L 5-34 ALT (SGPT) (BEAKER) (test mugr=814) 58 U/L 6-55 Fishing Rod Mechanic ID - MELLY PATELBC (HEMOGRAM ONLY)2019-06-02 12:22:00 Test Item Value Reference Range Comments WHITE BLOOD CELL COUNT (BEAKER) (test vggn=146) 9.1 K/ L 3.5-10.5 RED BLOOD CELL COUNT (BEAKER) (test ngtt=311) 3.03 M/ L 4.63-6.08 HEMOGLOBIN (BEAKER) (test rbji=114) 9.0 GM/DL 13.7-17.5 HEMATOCRIT (BEAKER) (test ahrl=517) 26.6 % 40.1-51.0 MEAN CORPUSCULAR VOLUME (BEAKER) (test vbig=541) 87.8 fL 79.0-92.2 MEAN CORPUSCULAR HEMOGLOBIN (BEAKER) (test 29.7 pg 25.7-32.2 jfra=025) MEAN CORPUSCULAR HEMOGLOBIN CONC (BEAKER) (test 33.8 GM/DL 32.3-36.5 qstf=287) RED CELL DISTRIBUTION WIDTH (BEAKER) (test 15.5 % 11.6-14.4 wlhb=904) PLATELET COUNT (BEAKER) (test staw=332) 233 K/CU MM 150-450 MEAN PLATELET VOLUME (BEAKER) (test mhoc=805) 10.6 fL 9.4-12.4 NUCLEATED RED BLOOD CELLS (BEAKER) (test 0 /100 WBC 0-0 eefe=871) LACTIC ACID, [id number] 12:21:00 Test Item Value Reference Range Comments LACTATE BLOOD ARTERIAL (2) (BEAKER) (test 1.0 mmol/L 0.5-2.2 ghqr=6816) Fishing Rod Mechanic ID - [id number] 12:19:00 Test Item Value Reference Range Comments FIBRINOGEN LEVEL (BEAKER) (test vptg=945) 485 mg/dl 225-434 OXYGEN SATURATION, [id number] 12:11:00 Test Item Value Reference Range Comments O2 SATURATION (MEASURED) (BEAKER) (test coue=1916) 65.3 % CALCIUM, [id number] 12:09:00 Test Item Value Reference Range Comments CALCIUM IONIZED (BEAKER) (test ibvy=799) 1.26 mmol/L 1.12-1.27 PH, BLOOD (BEAKER) (test sqpk=5860) 7.42 BLOOD GAS, [id number] 12:07:00 Test Item Value Reference Range Comments PH ARTERIAL (BEAKER) (test ohfd=671) 7.42 7.35-7.45 PCO2 ARTERIAL (BEAKER) (test bslu=689) 38 mmHg 35-45 PO2 ARTERIAL (BEAKER) (test cgyl=932) 132 mmHg 80-90 O2 SATURATION ARTERIAL (BEAKER) (test rmsv=996) 98.7 % 96.0-97.0 HCO3 ARTERIAL (BEAKER) (test zcvo=263) 24 mmol/L 21-29 BASE EXCESS ARTERIAL (BEAKER) (test hgfw=477) -0.5 mmol/L -2.0-3.0 PATIENT TEMPERATURE (BEAKER) (test btms=9435) 37.2 C FIO2 (BEAKER) (test gghc=7528) 100.0 % SODIUM NA-STAT [id number] 12:07:00 Test Item Value Reference Range Comments SODIUM (BEAKER) (test pcsv=305) 125 meq/L 135-148 GLUCOSE-STAT [id number] 12:07:00 Test Item Value Reference Range Comments GLUCOSE RANDOM (BEAKER) (test gden=431) 151 mg/dL 70-110 HGB/HCT (H&H) - STAT [id number] 12:07:00 Test Item Value Reference Range Comments HEMOGLOBIN (BEAKER) (test elrm=849) 9.9 g/dL 13.0-16.8 HEMATOCRIT (BEAKER) (test pnau=278) 29.0 % 40.0-50.0 POTASSIUM-STAT [id number] 12:04:00 Test Item Value Reference Range Comments POTASSIUM (BEAKER) (test agew=210) 4.0 meq/L 3.6-5.5 OXYGEN SATURATION, [id number] 10:01:00 Test Item Value Reference Range Comments O2 SATURATION (MEASURED) (BEAKER) (test xxjb=9839) 61.4 % HGB/HCT (H&H) - STAT [id number] 09:57:00 Test Item Value Reference Range Comments HEMOGLOBIN (BEAKER) (test gfjq=434) 8.6 g/dL 13.0-16.8 HEMATOCRIT (BEAKER) (test hsfm=079) 25.0 % 40.0-50.0 CALCIUM, [id number] 09:56:00 Test Item Value Reference Range Comments CALCIUM IONIZED (BEAKER) (test bixt=318) 1.08 mmol/L 1.12-1.27 PH, BLOOD (BEAKER) (test rdve=5781) 7.37 BLOOD GAS, [id number] 09:56:00 Test Item Value Reference Range Comments PH ARTERIAL (BEAKER) (test vffg=667) 7.39 7.35-7.45 PCO2 ARTERIAL (BEAKER) (test wrwv=384) 42 mmHg 35-45 PO2 ARTERIAL (BEAKER) (test vchq=552) 83 mmHg 80-90 O2 SATURATION ARTERIAL (BEAKER) (test ikbv=096) 96.6 % 96.0-97.0 HCO3 ARTERIAL (BEAKER) (test xrdm=668) 25 mmol/L 21-29 BASE EXCESS ARTERIAL (BEAKER) (test eowz=405) -0.3 mmol/L -2.0-3.0 PATIENT TEMPERATURE (BEAKER) (test jiah=6720) 35.7 C FIO2 (BEAKER) (test hkob=9208) 100.0 % POTASSIUM-STAT [id number] 09:56:00 Test Item Value Reference Range Comments POTASSIUM (BEAKER) (test jzuk=380) 3.9 meq/L 3.6-5.5 SODIUM NA-STAT [id number] 09:56:00 Test Item Value Reference Range Comments SODIUM (BEAKER) (test cxxk=392) 125 meq/L 135-148 GLUCOSE-STAT [id number] 09:56:00 Test Item Value Reference Range Comments GLUCOSE RANDOM (BEAKER) (test lqsm=045) 142 mg/dL 70-110 RAD, CHEST, 1 VIEW, NON [id number] 08:43:00Reason for exam:->s/p ACBShould this be performed at the bedside?->YesFINAL REPORT TECHNIQUE: Single view of the chest. COMPARISON: 06/01/2019 FINDINGS: Bilateral patchy interstitial and airspace opacities are stable. There are bilateral small right greater than left pleural effusions. No gross pneumothorax.No gross new lung parenchymal changes. Support lines and tubes are stable. IMPRESSION: 1. No significant interval change. Signed: Sarath Randhawa Verified Date/Time: 06/02/2019 08:43:27 Reading Location: [facility] Radiology Reading Room Electronically signed by: SARATH RANDHAWA M.D. on 2019 08:43 [id number] 05:54:00 Test Item Value Reference Range Comments PROTIME (BEAKER) (test wmxq=782) 16.4 seconds 11.9-14.2 INR (BEAKER) (test wtdf=333) 1.4 <=5.9 PARTIAL THROMBOPLASTIN TIME (BEAKER) (test 37.6 seconds 22.5-36.0 jbsy=277) Effective 10/12/2018: PT Reference Range ChangeNew: 11.9-14.2 Previous: 11.7- 14.7RECOMMENDED COUMADIN/WARFARIN INR THERAPY RANGESSTANDARD DOSE: 2.0-3.0 Includes: PROPHYLAXIS for venous thrombosis, systemic embolization; TREATMENT for venous thrombosis and/or pulmonary embolus.HIGH RISK: Target INR is2.5-3.5 for patients wiht mechanical heart valves.PROTHROMBIN TIME/[id number] 05:53: 00 Test Item Value Reference Range Comments PROTIME (BEAKER) (test krgc=144) 16.4 seconds 11.9-14.2 INR (BEAKER) (test cxcm=709) 1.4 <=5.9 Effective 10/12/2018: PT Reference Range ChangeNew: 11.9-14.2 Previous: 11.7- 14.7RECOMMENDED COUMADIN/WARFARIN INR THERAPY RANGESSTANDARD DOSE: 2.0-3.0 Includes: PROPHYLAXIS for venous thrombosis, systemic embolization; TREATMENT for venous thrombosis and/or pulmonary embolus.HIGH RISK: Target INR is2.5-3.5 for patients wiht mechanical heart valves.BASIC METABOLIC [id number] 05:37: 00 Test Item Value Reference Range Comments SODIUM (BEAKER) (test 127 meq/L 136-145 ptwr=255) POTASSIUM (BEAKER) (test 3.9 meq/L 3.5-5.1 adsb=044) CHLORIDE (BEAKER) (test 93 meq/L 98-107 fzuy=353) CO2 (BEAKER) (test 24 meq/L 22-29 mltv=022) BLOOD UREA NITROGEN 64 mg/dL 7-21 (BEAKER) (test jlfl=308) CREATININE (BEAKER) (test 3.65 mg/dL 0.57-1.25 wxds=039) GLUCOSE RANDOM (BEAKER) 126 mg/dL 70-105 (test uane=169) CALCIUM (BEAKER) (test 7.9 mg/dL 8.4-10.2 cxud=993) EGFR (BEAKER) (test 17 mL/min/1.73 sq m ESTIMATED GFR IS NOT ttyh=8545) ACCURATE CREATININE CLEARANCE IN PREDICTING GLOMERULAR FILTRATION RATE. ESTIMATED GFR IS NOT APPLICABLE FOR DIALYSIS PATIENTS. Fishing Rod Mechanic ID - [id number] 05:26:00 Test Item Value Reference Range Comments PHOSPHORUS (BEAKER) (test yvek=731) 4.6 mg/dL 2.3-4.7 Fishing Rod Mechanic ID - [id number] 05:26:00 Test Item Value Reference Range Comments MAGNESIUM (BEAKER) (test snum=596) 1.9 mg/dL 1.6-2.6 Fishing Rod Mechanic ID - DBOXYGEN SATURATION, [id number] 05:25:00 Test Item Value Reference Range Comments O2 SATURATION (MEASURED) (BEAKER) (test inve=3056) 54.6 % LACTIC ACID, [id number] 05:19:00 Test Item Value Reference Range Comments LACTATE BLOOD ARTERIAL (2) (BEAKER) (test 0.8 mmol/L 0.5-2.2 qzra=9876) Fishing Rod Mechanic ID - FREDERICK WBLOOD GAS, [id number] 05:11:00 Test Item Value Reference Range Comments PH ARTERIAL (BEAKER) (test obnu=522) 7.51 7.35-7.45 PCO2 ARTERIAL (BEAKER) (test vohj=809) 32 mmHg 35-45 PO2 ARTERIAL (BEAKER) (test pgmh=327) 98 mmHg 80-90 O2 SATURATION ARTERIAL (BEAKER) (test qgia=112) 98.0 % 96.0-97.0 HCO3 ARTERIAL (BEAKER) (test adqo=167) 25 mmol/L 21-29 BASE EXCESS ARTERIAL (BEAKER) (test egff=929) 1.7 mmol/L -2.0-3.0 PATIENT TEMPERATURE (BEAKER) (test nclh=7965) 37.0 C FIO2 (BEAKER) (test vibe=9983) 100.0 % CBC (HEMOGRAM ONLY)2019-06-02 05:07:00 Test Item Value Reference Range Comments WHITE BLOOD CELL COUNT (BEAKER) (test kxkb=664) 7.0 K/ L 3.5-10.5 RED BLOOD CELL COUNT (BEAKER) (test pipx=743) 2.71 M/ L 4.63-6.08 HEMOGLOBIN (BEAKER) (test bkgh=164) 7.8 GM/DL 13.7-17.5 HEMATOCRIT (BEAKER) (test idco=604) 23.5 % 40.1-51.0 MEAN CORPUSCULAR VOLUME (BEAKER) (test vcif=227) 86.7 fL 79.0-92.2 MEAN CORPUSCULAR HEMOGLOBIN (BEAKER) (test 28.8 pg 25.7-32.2 jgvx=955) MEAN CORPUSCULAR HEMOGLOBIN CONC (BEAKER) (test 33.2 GM/DL 32.3-36.5 lkrw=131) RED CELL DISTRIBUTION WIDTH (BEAKER) (test 15.6 % 11.6-14.4 tkty=630) PLATELET COUNT (BEAKER) (test dkfb=371) 235 K/CU MM 150-450 MEAN PLATELET VOLUME (BEAKER) (test agvy=466) 10.5 fL 9.4-12.4 NUCLEATED RED BLOOD CELLS (BEAKER) (test 0 /100 WBC 0-0 jkhy=444) HEMOGLOBIN AND [id number] 01:01:00 Test Item Value Reference Range Comments HEMOGLOBIN (BEAKER) (test zkbx=726) 7.6 GM/DL 13.7-17.5 HEMATOCRIT (BEAKER) (test dpwe=812) 22.7 % 40.1-51.0 Fishing Rod Mechanic ID - 6000BASIC METABOLIC [id number] 00:55:00 Test Item Value Reference Range Comments SODIUM (BEAKER) (test 125 meq/L 136-145 ddmx=861) POTASSIUM (BEAKER) (test 4.1 meq/L 3.5-5.1 rpym=704) CHLORIDE (BEAKER) (test 93 meq/L 98-107 wzbd=233) CO2 (BEAKER) (test 23 meq/L 22-29 banc=647) BLOOD UREA NITROGEN 63 mg/dL 7-21 (BEAKER) (test ialk=492) CREATININE (BEAKER) (test 3.56 mg/dL 0.57-1.25 auvg=257) GLUCOSE RANDOM (BEAKER) 137 mg/dL 70-105 (test cqlz=576) CALCIUM (BEAKER) (test 7.7 mg/dL 8.4-10.2 mfis=127) EGFR (BEAKER) (test 17 mL/min/1.73 sq m ESTIMATED GFR IS NOT qpxh=4996) ACCURATE CREATININE CLEARANCE IN PREDICTING GLOMERULAR FILTRATION RATE. ESTIMATED GFR IS NOT APPLICABLE FOR DIALYSIS PATIENTS. Fishing Rod Mechanic ID - DBOXYGEN SATURATION, [id number] 00:54:00 Test Item Value Reference Range Comments O2 SATURATION (MEASURED) (BEAKER) (test sfsm=3918) 45.4 % BLOOD GAS, [id number] 00:54:00 Test Item Value Reference Range Comments PH ARTERIAL (BEAKER) (test hkvr=991) 7.49 7.35-7.45 PCO2 ARTERIAL (BEAKER) (test qdfa=451) 30 mmHg 35-45 PO2 ARTERIAL (BEAKER) (test whsa=576) 77 mmHg 80-90 O2 SATURATION ARTERIAL (BEAKER) (test buko=094) 96.5 % 96.0-97.0 HCO3 ARTERIAL (BEAKER) (test mobu=979) 23 mmol/L 21-29 BASE EXCESS ARTERIAL (BEAKER) (test fmmg=627) -0.2 mmol/L -2.0-3.0 PATIENT TEMPERATURE (BEAKER) (test krxo=8602) 37.0 C FIO2 (BEAKER) (test sjnh=1038) 100.0 % [id number] 00:52:00 Test Item Value Reference Range Comments MAGNESIUM (BEAKER) (test jkgq=375) 1.9 mg/dL 1.6-2.6 Fishing Rod Mechanic ID - DBBASIC METABOLIC [id number] 17:53:00 Test Item Value Reference Range Comments SODIUM (BEAKER) (test 125 meq/L 136-145 tgti=131) POTASSIUM (BEAKER) (test 4.5 meq/L 3.5-5.1 czon=897) CHLORIDE (BEAKER) (test 94 meq/L 98-107 pxcq=829) CO2 (BEAKER) (test 23 meq/L 22-29 ixbb=803) BLOOD UREA NITROGEN 63 mg/dL 7-21 (BEAKER) (test dizx=433) CREATININE (BEAKER) (test 3.53 mg/dL 0.57-1.25 qoed=570) GLUCOSE RANDOM (BEAKER) 119 mg/dL 70-105 (test hbcw=120) CALCIUM (BEAKER) (test 8.0 mg/dL 8.4-10.2 niop=252) EGFR (BEAKER) (test 17 mL/min/1.73 sq m ESTIMATED GFR IS NOT npgh=1911) ACCURATE CREATININE CLEARANCE IN PREDICTING GLOMERULAR FILTRATION RATE. ESTIMATED GFR IS NOT APPLICABLE FOR DIALYSIS PATIENTS. Fishing Rod Mechanic ID - BSOXYGEN SATURATION, [id number] 17:31:00 Test Item Value Reference Range Comments O2 SATURATION (MEASURED) (BEAKER) (test wtql=9786) 45.2 % [id number] 14:57:00 Test Item Value Reference Range Comments POTASSIUM (BEAKER) (test 4.6 meq/L 3.5-5.1 Specimen slightly hemolyzed ygdm=080) Fishing Rod Mechanic ID - BSPRN - repeat potassium levels every 1 hour until glucose level is less than 450 mg/[id number] 14:53:00 Test Item Value Reference Range Comments MAGNESIUM (BEAKER) (test 2.0 mg/dL 1.6-2.6 Specimen slightly hemolyzed wgqk=641) Fishing Rod Mechanic ID - BSPRN - repeat potassium levels every 1 hour until glucose level is less than 450 mg/dLLACTIC ACID, [id number] 06:47:00 Test Item Value Reference Range Comments LACTATE BLOOD ARTERIAL (2) (BEAKER) (test 0.8 mmol/L 0.5-2.2 rzev=5683) Fishing Rod Mechanic ID - FREDERICK WBASIC METABOLIC [id number] 06:02:00 Test Item Value Reference Range Comments SODIUM (BEAKER) (test 123 meq/L 136-145 vefw=297) POTASSIUM (BEAKER) (test 4.1 meq/L 3.5-5.1 thdx=689) CHLORIDE (BEAKER) (test 93 meq/L 98-107 qrpy=244) CO2 (BEAKER) (test 21 meq/L 22-29 telt=241) BLOOD UREA NITROGEN 61 mg/dL 7-21 (BEAKER) (test ltpd=050) CREATININE (BEAKER) (test 3.46 mg/dL 0.57-1.25 fdue=475) GLUCOSE RANDOM (BEAKER) 145 mg/dL 70-105 (test wswl=447) CALCIUM (BEAKER) (test 7.4 mg/dL 8.4-10.2 tsch=003) EGFR (BEAKER) (test 18 mL/min/1.73 sq m ESTIMATED GFR IS NOT trlf=2589) ACCURATE CREATININE CLEARANCE IN PREDICTING GLOMERULAR FILTRATION RATE. ESTIMATED GFR IS NOT APPLICABLE FOR DIALYSIS PATIENTS. Fishing Rod Mechanic ID - RASHEEDATOO [id number] 05:56:00 Test Item Value Reference Range Comments PHOSPHORUS (BEAKER) (test lqsq=749) 3.4 mg/dL 2.3-4.7 Fishing Rod Mechanic ID - RASHEEDATOO [id number] 05:56:00 Test Item Value Reference Range Comments MAGNESIUM (BEAKER) (test ruhu=017) 2.1 mg/dL 1.6-2.6 Fishing Rod Mechanic ID - RASHEEDATOO LRAD, CHEST, 1 VIEW, NON [id number] 05:25:00Reason for exam:->s/p ACBShould this be performed at the bedside?->YesFINAL REPORT RAD, CHEST, 1 VIEW, NON DEPT INDICATION: s/p ACB COMPARISON: Nine hours prior. FINDINGS: Portable frontal view of the chest. IMPRESSION: Support Lines: No significant change. Lungs and pleura: Airspace and pleural opacities compatible with moderate right pleural effusion and interstitial edema, are not significantly changed. Trace left pleural effusion suspected. No pneumothorax.Heart and mediastinum: Cardiomegaly is stable. Additional findings: None. Signed: Luis Fernando Grey MDReport Verified Date/Time: 06/01/2019 05:25:01 CBC (HEMOGRAM ONLY)2019-06-01 05:04:00 Test Item Value Reference Range Comments WHITE BLOOD CELL COUNT (BEAKER) (test ykkg=411) 8.4 K/ L 3.5-10.5 RED BLOOD CELL COUNT (BEAKER) (test ypru=720) 2.66 M/ L 4.63-6.08 HEMOGLOBIN (BEAKER) (test cbuv=810) 7.9 GM/DL 13.7-17.5 HEMATOCRIT (BEAKER) (test wdcc=609) 23.1 % 40.1-51.0 MEAN CORPUSCULAR VOLUME (BEAKER) (test lrcf=311) 86.8 fL 79.0-92.2 MEAN CORPUSCULAR HEMOGLOBIN (BEAKER) (test 29.7 pg 25.7-32.2 avwf=550) MEAN CORPUSCULAR HEMOGLOBIN CONC (BEAKER) (test 34.2 GM/DL 32.3-36.5 jcgy=517) RED CELL DISTRIBUTION WIDTH (BEAKER) (test 15.6 % 11.6-14.4 bygw=463) PLATELET COUNT (BEAKER) (test bhvl=937) 178 K/CU MM 150-450 MEAN PLATELET VOLUME (BEAKER) (test oaks=637) 11.0 fL 9.4-12.4 NUCLEATED RED BLOOD CELLS (BEAKER) (test 0 /100 WBC 0-0 xcry=153) OXYGEN SATURATION, [id number] 04:54:00 Test Item Value Reference Range Comments O2 SATURATION (MEASURED) (BEAKER) (test laeg=4213) 60.2 % BLOOD GAS, [id number] 04:29:00 Test Item Value Reference Range Comments PH ARTERIAL (BEAKER) (test jewe=607) 7.51 7.35-7.45 PCO2 ARTERIAL (BEAKER) (test oigt=966) 29 mmHg 35-45 PO2 ARTERIAL (BEAKER) (test xpon=742) 109 mmHg 80-90 O2 SATURATION ARTERIAL (BEAKER) (test lhvc=823) 98.4 % 96.0-97.0 HCO3 ARTERIAL (BEAKER) (test vksi=335) 23 mmol/L 21-29 BASE EXCESS ARTERIAL (BEAKER) (test mrak=539) 0.3 mmol/L -2.0-3.0 PATIENT TEMPERATURE (BEAKER) (test lsng=1214) 37.0 C FIO2 (BEAKER) (test tavp=7141) 100.0 % BASIC METABOLIC [id number] 20:37:00 Test Item Value Reference Range Comments SODIUM (BEAKER) (test 124 meq/L 136-145 nqwe=952) POTASSIUM (BEAKER) (test 4.5 meq/L 3.5-5.1 Specimen slightly taoj=563) hemolyzed CHLORIDE (BEAKER) (test 93 meq/L 98-107 sajk=640) CO2 (BEAKER) (test 22 meq/L 22-29 llea=048) BLOOD UREA NITROGEN 61 mg/dL 7-21 (BEAKER) (test wfoj=833) CREATININE (BEAKER) (test 3.43 mg/dL 0.57-1.25 Specimen slightly imwd=357) hemolyzed GLUCOSE RANDOM (BEAKER) 118 mg/dL 70-105 (test qcys=890) CALCIUM (BEAKER) (test 7.4 mg/dL 8.4-10.2 mmrq=706) EGFR (BEAKER) (test 18 mL/min/1.73 sq m ESTIMATED GFR IS NOT yhxn=1895) ACCURATE CREATININE CLEARANCE IN PREDICTING GLOMERULAR FILTRATION RATE. ESTIMATED GFR IS NOT APPLICABLE FOR DIALYSIS PATIENTS. Fishing Rod Mechanic ID - MARY BLACTIC ACID, [id number] 20:33:00 Test Item Value Reference Range Comments LACTATE BLOOD ARTERIAL (2) (BEAKER) (test 0.8 mmol/L 0.5-2.2 yznk=3726) Fishing Rod Mechanic ID - MARY BOXYGEN SATURATION, [id number] 19:55:00 Test Item Value Reference Range Comments O2 SATURATION (MEASURED) (BEAKER) (test mrxd=6173) 53.4 % BLOOD GAS, [id number] 19:54:00 Test Item Value Reference Range Comments PH ARTERIAL (BEAKER) (test pcjn=243) 7.54 7.35-7.45 PCO2 ARTERIAL (BEAKER) (test yxbi=035) 28 mmHg 35-45 PO2 ARTERIAL (BEAKER) (test vkah=896) 84 mmHg 80-90 O2 SATURATION ARTERIAL (BEAKER) (test yeus=571) 97.4 % 96.0-97.0 HCO3 ARTERIAL (BEAKER) (test iaes=950) 24 mmol/L 21-29 BASE EXCESS ARTERIAL (BEAKER) (test aemo=465) 1.5 mmol/L -2.0-3.0 PATIENT TEMPERATURE (BEAKER) (test tpbq=1444) 37.0 C FIO2 (BEAKER) (test vbgi=4823) 100.0 % RAD, CHEST, 1 VIEW, NON [id number] 19:10:00Reason for exam:->piccShould this be performed at the bedside?->YesFINAL REPORT Chest, one view. HISTORY: picc COMPARISON: Radiograph from 05/31/2019 IMPRESSION : Interval insertion of a right PICC with the tip over the lower SVC. A left chest pacer has leads over the right atrium and ventricle. Unchanged small right pleural effusion and trace left pleural effusion. The interstitial pulmonary edema is unchanged. There is generally unchanged scattered atelectasis with some new atelectasis in the left midlung. The cardiac silhouette is unchanged and enlarged. No pneumothorax. No acute bony abnormality. Signed: Colette Veloz MDRdarellort Verified Date/Time: 05/31/2019 19:10: 18 Reading Location: [address] Consult Reading Room RAD, CHEST, 1 VIEW, NON [id number] 08:55:00Reason for exam:->s/p ACBShould this be performed at the bedside?->YesFINAL REPORT CLINICAL HISTORY: s/p ACB TECHNIQUE: 1 view of the chest. COMPARISON: 05/30/2019 IMPRESSION: There is a new left chest wall dual-lead pacemaker without pneumothorax. The right jugular sheath is unchanged. Bilateral airspace opacities and right greater than left pleural effusions are grossly unchanged. Cardiomegaly is again seen poststernotomy. Signed: Blanquita Posada MDReport Verified Date/Time: 05/31/2019 08:55:28 [facility] [id number] 06:13:00 Test Item Value Reference Range Comments PHOSPHORUS (BEAKER) (test rwde=459) 3.2 mg/dL 2.3-4.7 Fishing Rod Mechanic ID - [id number] 06:13:00 Test Item Value Reference Range Comments MAGNESIUM (BEAKER) (test wobr=413) 2.1 mg/dL 1.6-2.6 Fishing Rod Mechanic ID - LABASIC METABOLIC [id number] 06:13:00 Test Item Value Reference Range Comments SODIUM (BEAKER) (test 127 meq/L 136-145 boqs=041) POTASSIUM (BEAKER) (test 4.2 meq/L 3.5-5.1 crry=493) CHLORIDE (BEAKER) (test 95 meq/L 98-107 tmrx=233) CO2 (BEAKER) (test 25 meq/L 22-29 ehmm=704) BLOOD UREA NITROGEN 55 mg/dL 7-21 (BEAKER) (test vvgs=744) CREATININE (BEAKER) (test 3.37 mg/dL 0.57-1.25 npfr=426) GLUCOSE RANDOM (BEAKER) 135 mg/dL 70-105 (test trih=596) CALCIUM (BEAKER) (test 7.6 mg/dL 8.4-10.2 edxh=303) EGFR (BEAKER) (test 18 mL/min/1.73 sq m ESTIMATED GFR IS NOT arqm=0260) ACCURATE CREATININE CLEARANCE IN PREDICTING GLOMERULAR FILTRATION RATE. ESTIMATED GFR IS NOT APPLICABLE FOR DIALYSIS PATIENTS. Fishing Rod Mechanic ID - LACBC (HEMOGRAM ONLY)2019-05-31 05:23:00 Test Item Value Reference Range Comments WHITE BLOOD CELL COUNT (BEAKER) (test nbze=340) 8.0 K/ L 3.5-10.5 RED BLOOD CELL COUNT (BEAKER) (test gtpr=902) 2.95 M/ L 4.63-6.08 HEMOGLOBIN (BEAKER) (test qlol=767) 8.5 GM/DL 13.7-17.5 HEMATOCRIT (BEAKER) (test ibyu=628) 26.4 % 40.1-51.0 MEAN CORPUSCULAR VOLUME (BEAKER) (test dhfx=776) 89.5 fL 79.0-92.2 MEAN CORPUSCULAR HEMOGLOBIN (BEAKER) (test 28.8 pg 25.7-32.2 zllt=427) MEAN CORPUSCULAR HEMOGLOBIN CONC (BEAKER) (test 32.2 GM/DL 32.3-36.5 zlzo=015) RED CELL DISTRIBUTION WIDTH (BEAKER) (test 15.8 % 11.6-14.4 gopk=137) PLATELET COUNT (BEAKER) (test vivu=489) 165 K/CU MM 150-450 MEAN PLATELET VOLUME (BEAKER) (test rzqy=316) 10.7 fL 9.4-12.4 NUCLEATED RED BLOOD CELLS (BEAKER) (test 0 /100 WBC 0-0 luiu=718) RAD, CHEST, 1 VIEW, NON [id number] 08:02:00Reason for exam:->s/p ACBShould this be performed at the bedside?->YesFINAL REPORT CLINICAL HISTORY: s/p ACB TECHNIQUE: 1 view of the chest. COMPARISON: IMPRESSION: The Baldwin-Allison catheter has been removed. The right jugular sheath remains. There are diffusely increased bilateral airspace opacities and pleural effusions. Cardiomegaly is again seen unchanged post sternotomy. Signed : Blanquita Posada MDReport Verified Date/Time: 05/30/2019 08:02:43 Reading Location: [facility] Radiology Reading Room B-TYPE NATRIURETIC FACTOR (BNP)05-30 06:24:00 Test Item Value Reference Range Comments B-TYPE NATRIURETIC PEPTIDE (BEAKER) (test 2342 pg/mL 0-100 bxid=272) Fishing Rod Mechanic ID - LABASIC METABOLIC [id number] 05:48:00 Test Item Value Reference Range Comments SODIUM (BEAKER) (test 130 meq/L 136-145 mfmo=023) POTASSIUM (BEAKER) (test 3.8 meq/L 3.5-5.1 zswj=756) CHLORIDE (BEAKER) (test 97 meq/L 98-107 rkrp=943) CO2 (BEAKER) (test 25 meq/L 22-29 aukb=129) BLOOD UREA NITROGEN 51 mg/dL 7-21 (BEAKER) (test xhjs=814) CREATININE (BEAKER) (test 2.95 mg/dL 0.57-1.25 qlzo=919) GLUCOSE RANDOM (BEAKER) 91 mg/dL 70-105 (test icdm=869) CALCIUM (BEAKER) (test 7.6 mg/dL 8.4-10.2 fbbl=369) EGFR (BEAKER) (test 21 mL/min/1.73 sq m ESTIMATED GFR IS NOT qibh=2953) ACCURATE CREATININE CLEARANCE IN PREDICTING GLOMERULAR FILTRATION RATE. ESTIMATED GFR IS NOT APPLICABLE FOR DIALYSIS PATIENTS. Fishing Rod Mechanic ID - MARISABEL MURIC [id number] 05:43:00 Test Item Value Reference Range Comments URIC ACID (BEAKER) (test ykxq=602) 10.7 mg/dL 2.6-7.2 Fishing Rod Mechanic ID - MARISABEL [id number] 05:43:00 Test Item Value Reference Range Comments MAGNESIUM (BEAKER) (test kdup=614) 2.1 mg/dL 1.6-2.6 Fishing Rod Mechanic ID - MARISABEL [id number] 05:43:00 Test Item Value Reference Range Comments PHOSPHORUS (BEAKER) (test eavb=683) 2.8 mg/dL 2.3-4.7 Fishing Rod Mechanic ID - MARISABEL MCBC W/PLT COUNT & AUTO [id number] 05:30:00 Test Item Value Reference Range Comments WHITE BLOOD CELL COUNT (BEAKER) (test jmch=614) 6.8 K/ L 3.5-10.5 RED BLOOD CELL COUNT (BEAKER) (test znoe=343) 3.16 M/ L 4.63-6.08 HEMOGLOBIN (BEAKER) (test kwpf=561) 9.1 GM/DL 13.7-17.5 HEMATOCRIT (BEAKER) (test twlg=353) 27.8 % 40.1-51.0 MEAN CORPUSCULAR VOLUME (BEAKER) (test vnnj=599) 88.0 fL 79.0-92.2 MEAN CORPUSCULAR HEMOGLOBIN (BEAKER) (test 28.8 pg 25.7-32.2 xyct=509) MEAN CORPUSCULAR HEMOGLOBIN CONC (BEAKER) (test 32.7 GM/DL 32.3-36.5 nxdt=200) RED CELL DISTRIBUTION WIDTH (BEAKER) (test 15.5 % 11.6-14.4 untz=888) PLATELET COUNT (BEAKER) (test mjle=188) 146 K/CU MM 150-450 MEAN PLATELET VOLUME (BEAKER) (test vrfb=917) 10.5 fL 9.4-12.4 NUCLEATED RED BLOOD CELLS (BEAKER) (test 0 /100 WBC 0-0 yyhi=671) NEUTROPHILS RELATIVE PERCENT (BEAKER) (test 73 % posl=053) LYMPHOCYTES RELATIVE PERCENT (BEAKER) (test 11 % iikx=514) MONOCYTES RELATIVE PERCENT (BEAKER) (test 13 % zqti=606) EOSINOPHILS RELATIVE PERCENT (BEAKER) (test 2 % snhk=866) BASOPHILS RELATIVE PERCENT (BEAKER) (test 0 % gwzy=417) NEUTROPHILS ABSOLUTE COUNT (BEAKER) (test 4.95 K/ L 1.78-5.38 groa=056) LYMPHOCYTES ABSOLUTE COUNT (BEAKER) (test 0.76 K/ L 1.32-3.57 bnkx=996) MONOCYTES ABSOLUTE COUNT (BEAKER) (test 0.86 K/ L 0.30-0.82 lcwm=940) EOSINOPHILS ABSOLUTE COUNT (BEAKER) (test 0.13 K/ L 0.04-0.54 iixj=367) BASOPHILS ABSOLUTE COUNT (BEAKER) (test 0.02 K/ L 0.01-0.08 nsax=693) IMMATURE GRANULOCYTES-RELATIVE PERCENT (BEAKER) 0 % 0-1 (test xrdo=2662) CBC (HEMOGRAM ONLY)2019-05-30 05:30:00 Test Item Value Reference Range Comments WHITE BLOOD CELL COUNT (BEAKER) (test ddjg=277) 6.8 K/ L 3.5-10.5 RED BLOOD CELL COUNT (BEAKER) (test wuom=415) 3.16 M/ L 4.63-6.08 HEMOGLOBIN (BEAKER) (test tuez=089) 9.1 GM/DL 13.7-17.5 HEMATOCRIT (BEAKER) (test fttw=583) 27.8 % 40.1-51.0 MEAN CORPUSCULAR VOLUME (BEAKER) (test mucf=426) 88.0 fL 79.0-92.2 MEAN CORPUSCULAR HEMOGLOBIN (BEAKER) (test 28.8 pg 25.7-32.2 pcac=691) MEAN CORPUSCULAR HEMOGLOBIN CONC (BEAKER) (test 32.7 GM/DL 32.3-36.5 rtee=205) RED CELL DISTRIBUTION WIDTH (BEAKER) (test 15.5 % 11.6-14.4 hhfp=123) PLATELET COUNT (BEAKER) (test gkrg=777) 146 K/CU MM 150-450 MEAN PLATELET VOLUME (BEAKER) (test autx=495) 10.5 fL 9.4-12.4 NUCLEATED RED BLOOD CELLS (BEAKER) (test 0 /100 WBC 0-0 ovfd=364) CBC W/PLT COUNT & AUTO [id number] 21:42:00 Test Item Value Reference Range Comments WHITE BLOOD CELL COUNT (BEAKER) (test jhxk=498) 6.3 K/ L 3.5-10.5 RED BLOOD CELL COUNT (BEAKER) (test gvjw=231) 2.84 M/ L 4.63-6.08 HEMOGLOBIN (BEAKER) (test svzk=278) 8.1 GM/DL 13.7-17.5 HEMATOCRIT (BEAKER) (test frkv=887) 24.8 % 40.1-51.0 MEAN CORPUSCULAR VOLUME (BEAKER) (test vmca=015) 87.3 fL 79.0-92.2 MEAN CORPUSCULAR HEMOGLOBIN (BEAKER) (test 28.5 pg 25.7-32.2 cbjk=714) MEAN CORPUSCULAR HEMOGLOBIN CONC (BEAKER) (test 32.7 GM/DL 32.3-36.5 cklq=416) RED CELL DISTRIBUTION WIDTH (BEAKER) (test 15.5 % 11.6-14.4 ayhc=248) PLATELET COUNT (BEAKER) (test pirh=828) 129 K/CU MM 150-450 MEAN PLATELET VOLUME (BEAKER) (test seyi=868) 10.4 fL 9.4-12.4 NUCLEATED RED BLOOD CELLS (BEAKER) (test 0 /100 WBC 0-0 ioqr=250) NEUTROPHILS RELATIVE PERCENT (BEAKER) (test 76 % nvoo=296) LYMPHOCYTES RELATIVE PERCENT (BEAKER) (test 9 % ybvx=526) MONOCYTES RELATIVE PERCENT (BEAKER) (test 13 % wwkh=754) EOSINOPHILS RELATIVE PERCENT (BEAKER) (test 2 % oyut=197) BASOPHILS RELATIVE PERCENT (BEAKER) (test 0 % fsni=277) NEUTROPHILS ABSOLUTE COUNT (BEAKER) (test 4.80 K/ L 1.78-5.38 ghhx=898) LYMPHOCYTES ABSOLUTE COUNT (BEAKER) (test 0.55 K/ L 1.32-3.57 wtra=688) MONOCYTES ABSOLUTE COUNT (BEAKER) (test 0.79 K/ L 0.30-0.82 tejj=867) EOSINOPHILS ABSOLUTE COUNT (BEAKER) (test 0.10 K/ L 0.04-0.54 rauj=381) BASOPHILS ABSOLUTE COUNT (BEAKER) (test 0.01 K/ L 0.01-0.08 xdim=801) IMMATURE GRANULOCYTES-RELATIVE PERCENT (BEAKER) 1 % 0-1 (test mybi=2807) [id number] 13:50:00 Test Item Value Reference Range Comments POTASSIUM (BEAKER) (test jnft=188) 3.7 meq/L 3.5-5.1 Fishing Rod Mechanic ID - MARISABEL MCBC W/PLT COUNT & AUTO [id number] 12:30:00 Test Item Value Reference Range Comments WHITE BLOOD CELL COUNT (BEAKER) (test ront=819) 7.8 K/ L 3.5-10.5 RED BLOOD CELL COUNT (BEAKER) (test fvpj=094) 3.32 M/ L 4.63-6.08 HEMOGLOBIN (BEAKER) (test vizy=307) 9.6 GM/DL 13.7-17.5 HEMATOCRIT (BEAKER) (test zhey=404) 28.6 % 40.1-51.0 MEAN CORPUSCULAR VOLUME (BEAKER) (test wsai=125) 86.1 fL 79.0-92.2 MEAN CORPUSCULAR HEMOGLOBIN (BEAKER) (test 28.9 pg 25.7-32.2 unsy=558) MEAN CORPUSCULAR HEMOGLOBIN CONC (BEAKER) (test 33.6 GM/DL 32.3-36.5 ouwn=370) RED CELL DISTRIBUTION WIDTH (BEAKER) (test 15.7 % 11.6-14.4 ewdm=607) PLATELET COUNT (BEAKER) (test zqjq=234) 148 K/CU MM 150-450 MEAN PLATELET VOLUME (BEAKER) (test qkzx=753) 10.6 fL 9.4-12.4 NUCLEATED RED BLOOD CELLS (BEAKER) (test 0 /100 WBC 0-0 vwkf=707) NEUTROPHILS RELATIVE PERCENT (BEAKER) (test 83 % nvlj=566) LYMPHOCYTES RELATIVE PERCENT (BEAKER) (test 7 % hijv=399) MONOCYTES RELATIVE PERCENT (BEAKER) (test 9 % csuy=460) EOSINOPHILS RELATIVE PERCENT (BEAKER) (test 0 % qwfq=113) BASOPHILS RELATIVE PERCENT (BEAKER) (test 0 % wdop=952) NEUTROPHILS ABSOLUTE COUNT (BEAKER) (test 6.44 K/ L 1.78-5.38 uicp=256) LYMPHOCYTES ABSOLUTE COUNT (BEAKER) (test 0.57 K/ L 1.32-3.57 cieg=895) MONOCYTES ABSOLUTE COUNT (BEAKER) (test 0.70 K/ L 0.30-0.82 ctgy=022) EOSINOPHILS ABSOLUTE COUNT (BEAKER) (test 0.03 K/ L 0.04-0.54 kxta=916) BASOPHILS ABSOLUTE COUNT (BEAKER) (test 0.00 K/ L 0.01-0.08 trms=717) IMMATURE GRANULOCYTES-RELATIVE PERCENT (BEAKER) 1 % 0-1 (test xxuk=7022) POCT-GLUCOSE [id number] 12:12:00 Test Item Value Reference Range Comments POC-GLUCOSE METER (BEAKER) 128 mg/dL 70-110 : TESTED AT [facility] [address] [place] [address] (test fhph=6645) [facility], [id number]: Fishing Rod Mechanic/Colorer AR=[id number] for MERLYSharmilaAVIS RIVKA BASIC METABOLIC [id number] 07:40:00 Test Item Value Reference Range Comments SODIUM (BEAKER) (test 132 meq/L 136-145 jnbw=119) POTASSIUM (BEAKER) (test 3.8 meq/L 3.5-5.1 mwfo=942) CHLORIDE (BEAKER) (test 96 meq/L 98-107 xreq=974) CO2 (BEAKER) (test 24 meq/L 22-29 idjd=617) BLOOD UREA NITROGEN 55 mg/dL 7-21 (BEAKER) (test skfr=392) CREATININE (BEAKER) (test 3.38 mg/dL 0.57-1.25 lfpa=958) GLUCOSE RANDOM (BEAKER) 106 mg/dL 70-105 (test xsbs=855) CALCIUM (BEAKER) (test 7.9 mg/dL 8.4-10.2 rjye=260) EGFR (BEAKER) (test 18 mL/min/1.73 sq m ESTIMATED GFR IS NOT eytw=0073) ACCURATE CREATININE CLEARANCE IN PREDICTING GLOMERULAR FILTRATION RATE. ESTIMATED GFR IS NOT APPLICABLE FOR DIALYSIS PATIENTS. Fishing Rod Mechanic ID - [id number] 07:22:00 Test Item Value Reference Range Comments PHOSPHORUS (BEAKER) (test tpcu=036) 4.4 mg/dL 2.3-4.7 Fishing Rod Mechanic ID - [id number] 07:22:00 Test Item Value Reference Range Comments MAGNESIUM (BEAKER) (test ynwt=519) 2.2 mg/dL 1.6-2.6 Fishing Rod Mechanic ID - SUE, CHEST, 1 VIEW, NON [id number] 05:01:00Reason for exam :->s/p ACBShould this be performed at the bedside?->YesFINAL REPORT Chest one view. Clinical history: s/p ACB Comparison: Chest radiograph 05/28/2019, 5:59 PM. Technique: A single frontal view of the chest was obtained. Findings:There is a right IJ Baldwin-Allison catheter with tip in the right pulmonary artery. There is a left atrial appendage occlusion device. The patient status post median sternotomy.There is stable enlargement of the cardiac silhouette. The aorta is atherosclerotic. There is diffuse interstitial prominence, nonspecific but may represent pulmonary interstitial edema. There is discoid atelectasis/linear scarring in the left lung base. There is airspace consolidation the left lower lobe which may represent atelectasis and/or pneumonia. There are small bilateral pleural effusions. There is no pneumothorax. Signed: Theodore Mccormick Verified Date/Time: 05:01:58 Electronically signed by: THEODORE MCCORMICK MD on 05:01 AMOXYGEN SATURATION, [id number] 04:35:00 Test Item Value Reference Range Comments O2 SATURATION (MEASURED) (BEAKER) (test oxyj=6333) 55.0 % SODIUM NA-STAT [id number] 04:23:00 Test Item Value Reference Range Comments SODIUM (BEAKER) (test inkb=861) 128 meq/L 135-148 HGB/HCT (H&H) - STAT [id number] 04:23:00 Test Item Value Reference Range Comments HEMOGLOBIN (BEAKER) (test ejcx=187) 10.4 g/dL 13.0-16.8 HEMATOCRIT (BEAKER) (test isam=575) 31.0 % 40.0-50.0 CALCIUM, [id number] 04:23:00 Test Item Value Reference Range Comments CALCIUM IONIZED (BEAKER) (test fpjo=859) 1.05 mmol/L 1.12-1.27 PH, BLOOD (BEAKER) (test nsxo=1182) 7.50 BLOOD GAS, [id number] 04:22:00 Test Item Value Reference Range Comments PH ARTERIAL (BEAKER) (test blbg=798) 7.50 7.35-7.45 PCO2 ARTERIAL (BEAKER) (test dgcv=614) 34 mmHg 35-45 PO2 ARTERIAL (BEAKER) (test qhgk=443) 78 mmHg 80-90 O2 SATURATION ARTERIAL (BEAKER) (test kjqv=969) 96.3 % 96.0-97.0 HCO3 ARTERIAL (BEAKER) (test xjcf=693) 26 mmol/L 21-29 BASE EXCESS ARTERIAL (BEAKER) (test fsbp=660) 2.6 mmol/L -2.0-3.0 PATIENT TEMPERATURE (BEAKER) (test jvut=8310) 37.4 C FIO2 (BEAKER) (test iulo=6214) 100.0 % GLUCOSE-STAT [id number] 03:56:00 Test Item Value Reference Range Comments GLUCOSE RANDOM (BEAKER) (test goac=903) 109 mg/dL 70-110 POTASSIUM-STAT [id number] 03:56:00 Test Item Value Reference Range Comments POTASSIUM (BEAKER) (test pzvg=504) 3.8 meq/L 3.6-5.5 CBC (HEMOGRAM ONLY)2019-05-29 03:46:00 Test Item Value Reference Range Comments WHITE BLOOD CELL COUNT (BEAKER) (test vkfv=661) 8.7 K/ L 3.5-10.5 RED BLOOD CELL COUNT (BEAKER) (test acns=476) 3.32 M/ L 4.63-6.08 HEMOGLOBIN (BEAKER) (test zxpy=608) 9.8 GM/DL 13.7-17.5 HEMATOCRIT (BEAKER) (test njrf=659) 28.1 % 40.1-51.0 MEAN CORPUSCULAR VOLUME (BEAKER) (test fjxe=069) 84.6 fL 79.0-92.2 MEAN CORPUSCULAR HEMOGLOBIN (BEAKER) (test 29.5 pg 25.7-32.2 lbvt=098) MEAN CORPUSCULAR HEMOGLOBIN CONC (BEAKER) (test 34.9 GM/DL 32.3-36.5 wmcf=210) RED CELL DISTRIBUTION WIDTH (BEAKER) (test 15.7 % 11.6-14.4 voan=484) PLATELET COUNT (BEAKER) (test qqpp=897) 141 K/CU MM 150-450 MEAN PLATELET VOLUME (BEAKER) (test qmqa=342) 10.5 fL 9.4-12.4 NUCLEATED RED BLOOD CELLS (BEAKER) (test 0 /100 WBC 0-0 vysv=625) BASIC METABOLIC [id number] 22:22:00 Test Item Value Reference Range Comments SODIUM (BEAKER) (test 126 meq/L 136-145 wumf=143) POTASSIUM (BEAKER) (test 3.3 meq/L 3.5-5.1 kdky=099) CHLORIDE (BEAKER) (test 94 meq/L 98-107 wwdj=522) CO2 (BEAKER) (test 22 meq/L 22-29 pqyf=192) BLOOD UREA NITROGEN 55 mg/dL 7-21 (BEAKER) (test pmce=182) CREATININE (BEAKER) (test 3.52 mg/dL 0.57-1.25 rgaw=705) GLUCOSE RANDOM (BEAKER) 129 mg/dL 70-105 (test vebe=130) CALCIUM (BEAKER) (test 7.8 mg/dL 8.4-10.2 yrfe=769) EGFR (BEAKER) (test 17 mL/min/1.73 sq m ESTIMATED GFR IS NOT ctwp=2267) ACCURATE CREATININE CLEARANCE IN PREDICTING GLOMERULAR FILTRATION RATE. ESTIMATED GFR IS NOT APPLICABLE FOR DIALYSIS PATIENTS. Fishing Rod Mechanic ID - KENNRAD, CHEST, 1 VIEW, NON [id number] 18:28:00Reason for exam :->pulm edemaFINAL REPORT RAD, CHEST, 1 VIEW, NON DEPT INDICATION: pulm edema COMPARISON: Prior day's exam FINDINGS: Portable frontal view of the chest. IMPRESSION: Support Lines: Baldwin-Allison tip overlies the pulmonary outflow tract. Sternotomy wires. Lungs and pleura: Unchanged airspace and pleural opacities. No pneumothorax.Heart and mediastinum: Stable contours. Stable surgical changes.Additional findings: None. Signed: Marcella Burdick MDReport Verified Date/Time: 05/28/2019 18:28:02 Reading Location: [address] Neuro Reading Room LACTIC ACID, [id number] 17:17:00 Test Item Value Reference Range Comments LACTATE BLOOD ARTERIAL (2) 1.1 mmol/L 0.5-2.2 Specimen slightly hemolyzed (BEAKER) (test hklk=7856) Fishing Rod Mechanic ID - MELLY FPOCT-GLUCOSE [id number] 16:43:00 Test Item Value Reference Range Comments POC-GLUCOSE METER (BEAKER) 118 mg/dL 70-110 : TESTED AT [address] (test tcna=6241) [facility], [id number]: Fishing Rod Mechanic/Colorer PU=[id number] for MAGDI HURTADO CBC W/PLT COUNT & AUTO [id number] 16:37:00 Test Item Value Reference Range Comments WHITE BLOOD CELL COUNT (BEAKER) (test xcau=202) 10.6 K/ L 3.5-10.5 RED BLOOD CELL COUNT (BEAKER) (test ovlb=194) 3.14 M/ L 4.63-6.08 HEMOGLOBIN (BEAKER) (test kqdt=973) 9.3 GM/DL 13.7-17.5 HEMATOCRIT (BEAKER) (test aewj=924) 27.0 % 40.1-51.0 MEAN CORPUSCULAR VOLUME (BEAKER) (test hkxa=284) 86.0 fL 79.0-92.2 MEAN CORPUSCULAR HEMOGLOBIN (BEAKER) (test 29.6 pg 25.7-32.2 doyn=233) MEAN CORPUSCULAR HEMOGLOBIN CONC (BEAKER) (test 34.4 GM/DL 32.3-36.5 ywfd=022) RED CELL DISTRIBUTION WIDTH (BEAKER) (test 15.7 % 11.6-14.4 fyyx=735) PLATELET COUNT (BEAKER) (test cxau=663) 165 K/CU MM 150-450 MEAN PLATELET VOLUME (BEAKER) (test evgt=128) 10.8 fL 9.4-12.4 NUCLEATED RED BLOOD CELLS (BEAKER) (test 0 /100 WBC 0-0 xevd=844) NEUTROPHILS RELATIVE PERCENT (BEAKER) (test 81 % oasw=625) LYMPHOCYTES RELATIVE PERCENT (BEAKER) (test 9 % ojmy=585) MONOCYTES RELATIVE PERCENT (BEAKER) (test 10 % cvih=028) EOSINOPHILS RELATIVE PERCENT (BEAKER) (test 0 % uppq=198) BASOPHILS RELATIVE PERCENT (BEAKER) (test 0 % hymq=544) NEUTROPHILS ABSOLUTE COUNT (BEAKER) (test 8.54 K/ L 1.78-5.38 ucff=038) LYMPHOCYTES ABSOLUTE COUNT (BEAKER) (test 0.90 K/ L 1.32-3.57 xmip=722) MONOCYTES ABSOLUTE COUNT (BEAKER) (test 1.04 K/ L 0.30-0.82 zeux=967) EOSINOPHILS ABSOLUTE COUNT (BEAKER) (test 0.01 K/ L 0.04-0.54 dexe=879) BASOPHILS ABSOLUTE COUNT (BEAKER) (test 0.01 K/ L 0.01-0.08 gvmt=030) IMMATURE GRANULOCYTES-RELATIVE PERCENT (BEAKER) 1 % 0-1 (test oymm=9893) BLOOD GAS, [id number] 16:36:00 Test Item Value Reference Range Comments PH ARTERIAL (BEAKER) (test aipk=952) 7.47 7.35-7.45 PCO2 ARTERIAL (BEAKER) (test fgyc=837) 32 mmHg 35-45 PO2 ARTERIAL (BEAKER) (test jlia=778) 60 mmHg 80-90 O2 SATURATION ARTERIAL (BEAKER) (test skda=125) 92.1 % 96.0-97.0 HCO3 ARTERIAL (BEAKER) (test bctt=947) 22 mmol/L 21-29 BASE EXCESS ARTERIAL (BEAKER) (test lhau=708) -0.7 mmol/L -2.0-3.0 PATIENT TEMPERATURE (BEAKER) (test aiuo=5481) 37.6 C FIO2 (BEAKER) (test fkkn=2318) 100.0 % OXYGEN SATURATION, [id number] 16:33:00 Test Item Value Reference Range Comments O2 SATURATION (MEASURED) (BEAKER) (test tfnu=6466) 46.3 % LACTIC ACID, [id number] 13:39:00 Test Item Value Reference Range Comments LACTATE BLOOD ARTERIAL (2) (BEAKER) (test 0.9 mmol/L 0.5-2.2 kwiw=3085) Fishing Rod Mechanic ID - MELLY FPOCT-GLUCOSE [id number] 13:09:00 Test Item Value Reference Range Comments POC-GLUCOSE METER (BEAKER) 112 mg/dL 70-110 : TESTED AT [facility] [address] [facility] (test pyft=2969) [facility], [id number]: Fishing Rod Mechanic/Colorer [id number] for MAGDI HURTADO CALCIUM, [id number] 12:35:00 Test Item Value Reference Range Comments CALCIUM IONIZED (BEAKER) (test wyhk=344) 1.05 mmol/L 1.12-1.27 PH, BLOOD (BEAKER) (test hhpe=1508) 7.48 OXYGEN SATURATION, [id number] 12:34:00 Test Item Value Reference Range Comments O2 SATURATION (MEASURED) (BEAKER) (test slxl=0117) 59.9 % BLOOD GAS, [id number] 12:34:00 Test Item Value Reference Range Comments PH ARTERIAL (BEAKER) (test unqn=501) 7.47 7.35-7.45 PCO2 ARTERIAL (BEAKER) (test leik=691) 30 mmHg 35-45 PO2 ARTERIAL (BEAKER) (test mjge=247) 72 mmHg 80-90 O2 SATURATION ARTERIAL (BEAKER) (test psqz=055) 95.5 % 96.0-97.0 HCO3 ARTERIAL (BEAKER) (test hmli=675) 21 mmol/L 21-29 BASE EXCESS ARTERIAL (BEAKER) (test xlpi=907) -1.6 mmol/L -2.0-3.0 PATIENT TEMPERATURE (BEAKER) (test yhhp=7468) 37.3 C FIO2 (BEAKER) (test zsct=6461) 100.0 % CBC W/PLT COUNT & AUTO [id number] 09:27:00 Test Item Value Reference Range Comments WHITE BLOOD CELL COUNT (BEAKER) (test uuhr=999) 9.7 K/ L 3.5-10.5 RED BLOOD CELL COUNT (BEAKER) (test bkbl=007) 2.69 M/ L 4.63-6.08 HEMOGLOBIN (BEAKER) (test izzh=194) 8.1 GM/DL 13.7-17.5 HEMATOCRIT (BEAKER) (test bvtl=884) 23.8 % 40.1-51.0 MEAN CORPUSCULAR VOLUME (BEAKER) (test jyfk=922) 88.5 fL 79.0-92.2 MEAN CORPUSCULAR HEMOGLOBIN (BEAKER) (test 30.1 pg 25.7-32.2 wjur=604) MEAN CORPUSCULAR HEMOGLOBIN CONC (BEAKER) (test 34.0 GM/DL 32.3-36.5 isbp=968) RED CELL DISTRIBUTION WIDTH (BEAKER) (test 15.2 % 11.6-14.4 ihva=104) PLATELET COUNT (BEAKER) (test bzlg=560) 129 K/CU MM 150-450 MEAN PLATELET VOLUME (BEAKER) (test goyh=414) 10.9 fL 9.4-12.4 NUCLEATED RED BLOOD CELLS (BEAKER) (test 0 /100 WBC 0-0 toqa=560) NEUTROPHILS RELATIVE PERCENT (BEAKER) (test 81 % iutx=200) LYMPHOCYTES RELATIVE PERCENT (BEAKER) (test 9 % zhef=218) MONOCYTES RELATIVE PERCENT (BEAKER) (test 8 % nelr=108) EOSINOPHILS RELATIVE PERCENT (BEAKER) (test 0 % wfhi=721) BASOPHILS RELATIVE PERCENT (BEAKER) (test 0 % vciu=522) NEUTROPHILS ABSOLUTE COUNT (BEAKER) (test 7.88 K/ L 1.78-5.38 bpta=476) LYMPHOCYTES ABSOLUTE COUNT (BEAKER) (test 0.88 K/ L 1.32-3.57 zoxs=194) MONOCYTES ABSOLUTE COUNT (BEAKER) (test 0.81 K/ L 0.30-0.82 iqrv=904) EOSINOPHILS ABSOLUTE COUNT (BEAKER) (test 0.03 K/ L 0.04-0.54 jmty=188) BASOPHILS ABSOLUTE COUNT (BEAKER) (test 0.01 K/ L 0.01-0.08 aops=362) IMMATURE GRANULOCYTES-RELATIVE PERCENT (BEAKER) 1 % 0-1 (test klmw=9604) POCT-GLUCOSE [id number] 08:09:00 Test Item Value Reference Range Comments POC-GLUCOSE METER (BEAKER) 109 mg/dL 70-110 : TESTED AT [facility] [address] [facility] (test ecfv=6537) [facility], [address]: Fishing Rod Mechanic/Colorer [id number] for GENESIS, MAGDI RAD, CHEST, 1 VIEW, NON [id number] 07:02:00Reason for exam:->s/p ACBShould this be performed at the bedside?->YesFINAL REPORT Chest, one view. HISTORY: s/p ACB COMPARISON: Radiograph from yesterday IMPRESSION: The chest tubes have been removed. PA catheter is unchanged in position. Prior left atrial appendage clipping. The small right pleural effusion and left basilar atelectasis are unchanged. Unchanged interstitial pulmonary edema. The cardiac silhouette is unchanged. No acute bony abnormality. Signed: Colette Veloz MDReport Verified Date/Time: 05/28/2019 07 :02:44 Reading Location: [address] Body Reading Room CBC (HEMOGRAM ONLY) 05:39:00 Test Item Value Reference Range Comments WHITE BLOOD CELL COUNT (BEAKER) (test dndr=270) 9.8 K/ L 3.5-10.5 RED BLOOD CELL COUNT (BEAKER) (test mxhi=582) 2.71 M/ L 4.63-6.08 HEMOGLOBIN (BEAKER) (test rcpc=740) 8.1 GM/DL 13.7-17.5 HEMATOCRIT (BEAKER) (test mrrq=644) 23.6 % 40.1-51.0 MEAN CORPUSCULAR VOLUME (BEAKER) (test xdpn=235) 87.1 fL 79.0-92.2 MEAN CORPUSCULAR HEMOGLOBIN (BEAKER) (test 29.9 pg 25.7-32.2 hfvx=138) MEAN CORPUSCULAR HEMOGLOBIN CONC (BEAKER) (test 34.3 GM/DL 32.3-36.5 oycb=653) RED CELL DISTRIBUTION WIDTH (BEAKER) (test 15.1 % 11.6-14.4 shpv=583) PLATELET COUNT (BEAKER) (test zuuj=901) 143 K/CU MM 150-450 MEAN PLATELET VOLUME (BEAKER) (test cjfp=188) 11.0 fL 9.4-12.4 NUCLEATED RED BLOOD CELLS (BEAKER) (test 0 /100 WBC 0-0 ltyo=606) CALCIUM, [id number] 04:59:00 Test Item Value Reference Range Comments CALCIUM IONIZED (BEAKER) (test bjwb=555) 1.03 mmol/L 1.12-1.27 PH, BLOOD (BEAKER) (test lanv=3620) 7.50 TROPONIN [id number] 04:15:00 Test Item Value Reference Range Comments TROPONIN I (BEAKER) (test iapj=075) 2.22 ng/mL 0.00-0.03 Troponin I (TnI) levels must [...] failure, acidosis, acute neurological disease, and persistent tachyarrhythmia.Fishing Rod Mechanic ID - MARISABEL MBASIC METABOLIC [id number] 04:13:00 Test Item Value Reference Range Comments SODIUM (BEAKER) (test 130 meq/L 136-145 rbpm=441) POTASSIUM (BEAKER) (test 4.0 meq/L 3.5-5.1 dqqo=822) CHLORIDE (BEAKER) (test 98 meq/L 98-107 xcjz=692) CO2 (BEAKER) (test 21 meq/L 22-29 myhy=496) BLOOD UREA NITROGEN 52 mg/dL 7-21 (BEAKER) (test xcpz=303) CREATININE (BEAKER) (test 3.23 mg/dL 0.57-1.25 yjxd=894) GLUCOSE RANDOM (BEAKER) 112 mg/dL 70-105 (test ocqu=208) CALCIUM (BEAKER) (test 7.7 mg/dL 8.4-10.2 fkxj=371) EGFR (BEAKER) (test 19 mL/min/1.73 sq m ESTIMATED GFR IS NOT nnes=6463) ACCURATE CREATININE CLEARANCE IN PREDICTING GLOMERULAR FILTRATION RATE. ESTIMATED GFR IS NOT APPLICABLE FOR DIALYSIS PATIENTS. Fishing Rod Mechanic ID - MARISABEL [id number] 04:03:00 Test Item Value Reference Range Comments PHOSPHORUS (BEAKER) (test kmvl=310) 4.8 mg/dL 2.3-4.7 Fishing Rod Mechanic ID - MARISABEL [id number] 04:03:00 Test Item Value Reference Range Comments MAGNESIUM (BEAKER) (test rsdf=402) 2.2 mg/dL 1.6-2.6 Fishing Rod Mechanic ID - MARISABEL GASTONNIN [id number] 19:48:00 Test Item Value Reference Range Comments TROPONIN I (BEAKER) (test kkwo=532) 2.64 ng/mL 0.00-0.03 Troponin I (TnI) levels must [...] failure, acidosis, acute neurological disease, and persistent tachyarrhythmia.Fishing Rod Mechanic ID - TANESHANBASIC METABOLIC [id number] 19:41:00 Test Item Value Reference Range Comments SODIUM (BEAKER) (test 130 meq/L 136-145 hswz=406) POTASSIUM (BEAKER) (test 4.3 meq/L 3.5-5.1 gvwj=135) CHLORIDE (BEAKER) (test 100 meq/L 98-107 ajky=092) CO2 (BEAKER) (test 21 meq/L 22-29 rthu=081) BLOOD UREA NITROGEN 49 mg/dL 7-21 (BEAKER) (test vnye=683) CREATININE (BEAKER) (test 3.12 mg/dL 0.57-1.25 hsbt=156) GLUCOSE RANDOM (BEAKER) 115 mg/dL 70-105 (test duoa=972) CALCIUM (BEAKER) (test 8.0 mg/dL 8.4-10.2 aibw=882) EGFR (BEAKER) (test 20 mL/min/1.73 sq m ESTIMATED GFR IS NOT xwxn=4174) ACCURATE CREATININE CLEARANCE IN PREDICTING GLOMERULAR FILTRATION RATE. ESTIMATED GFR IS NOT APPLICABLE FOR DIALYSIS PATIENTS. Fishing Rod Mechanic ID - KENNLACTIC ACID, [id number] 19:34:00 Test Item Value Reference Range Comments LACTATE BLOOD ARTERIAL (2) (BEAKER) (test 1.0 mmol/L 0.5-2.2 iwoj=7304) Fishing Rod Mechanic ID - TANESHANCBC W/PLT COUNT & AUTO [id number] 19:23:00 Test Item Value Reference Range Comments WHITE BLOOD CELL COUNT (BEAKER) (test mdxq=094) 10.8 K/ L 3.5-10.5 RED BLOOD CELL COUNT (BEAKER) (test gsgv=104) 2.67 M/ L 4.63-6.08 HEMOGLOBIN (BEAKER) (test nfxd=178) 8.0 GM/DL 13.7-17.5 HEMATOCRIT (BEAKER) (test vdgz=556) 23.9 % 40.1-51.0 MEAN CORPUSCULAR VOLUME (BEAKER) (test ymzn=170) 89.5 fL 79.0-92.2 MEAN CORPUSCULAR HEMOGLOBIN (BEAKER) (test 30.0 pg 25.7-32.2 ltbm=574) MEAN CORPUSCULAR HEMOGLOBIN CONC (BEAKER) (test 33.5 GM/DL 32.3-36.5 uavf=138) RED CELL DISTRIBUTION WIDTH (BEAKER) (test 15.4 % 11.6-14.4 zfal=872) PLATELET COUNT (BEAKER) (test zebe=443) 133 K/CU MM 150-450 MEAN PLATELET VOLUME (BEAKER) (test idnu=590) 10.8 fL 9.4-12.4 NUCLEATED RED BLOOD CELLS (BEAKER) (test 0 /100 WBC 0-0 utbv=010) NEUTROPHILS RELATIVE PERCENT (BEAKER) (test 81 % wcww=787) LYMPHOCYTES RELATIVE PERCENT (BEAKER) (test 9 % unio=296) MONOCYTES RELATIVE PERCENT (BEAKER) (test 9 % ujmt=737) EOSINOPHILS RELATIVE PERCENT (BEAKER) (test 0 % ayan=155) BASOPHILS RELATIVE PERCENT (BEAKER) (test 0 % cdgp=026) NEUTROPHILS ABSOLUTE COUNT (BEAKER) (test 8.73 K/ L 1.78-5.38 xqcb=483) LYMPHOCYTES ABSOLUTE COUNT (BEAKER) (test 0.96 K/ L 1.32-3.57 wzok=224) MONOCYTES ABSOLUTE COUNT (BEAKER) (test 1.00 K/ L 0.30-0.82 nhww=472) EOSINOPHILS ABSOLUTE COUNT (BEAKER) (test 0.00 K/ L 0.04-0.54 mwql=511) BASOPHILS ABSOLUTE COUNT (BEAKER) (test 0.01 K/ L 0.01-0.08 ssbr=177) IMMATURE GRANULOCYTES-RELATIVE PERCENT (BEAKER) 1 % 0-1 (test glev=6899) BLOOD GAS, [id number] 19:20:00 Test Item Value Reference Range Comments PH ARTERIAL (BEAKER) (test hpyy=702) 7.45 7.35-7.45 PCO2 ARTERIAL (BEAKER) (test cizh=011) 31 mmHg 35-45 PO2 ARTERIAL (BEAKER) (test kpgv=664) 90 mmHg 80-90 O2 SATURATION ARTERIAL (BEAKER) (test cvwf=839) 97.4 % 96.0-97.0 HCO3 ARTERIAL (BEAKER) (test ppaa=903) 21 mmol/L 21-29 BASE EXCESS ARTERIAL (BEAKER) (test kkgi=899) -2.5 mmol/L -2.0-3.0 PATIENT TEMPERATURE (BEAKER) (test sdwj=7693) 36.7 C FIO2 (BEAKER) (test qwmx=3392) 36.0 % OXYGEN SATURATION, [id number] 19:16:00 Test Item Value Reference Range Comments O2 SATURATION (MEASURED) (BEAKER) (test vikg=2388) 35.8 % OXYGEN SATURATION, [id number] 16:48:00 Test Item Value Reference Range Comments O2 SATURATION (MEASURED) (BEAKER) (test swbn=5501) 35.0 % OXYGEN SATURATION, [id number] 13:44:00 Test Item Value Reference Range Comments O2 SATURATION (MEASURED) (BEAKER) (test xclp=8446) 28.7 % HEMOGLOBIN AND [id number] 13:36:00 Test Item Value Reference Range Comments HEMOGLOBIN (BEAKER) (test conk=124) 8.3 GM/DL 13.7-17.5 HEMATOCRIT (BEAKER) (test zqeo=438) 24.9 % 40.1-51.0 Fishing Rod Mechanic ID - 6000OXYGEN SATURATION, [id number] 10:37:00 Test Item Value Reference Range Comments O2 SATURATION (MEASURED) (BEAKER) (test uawa=7063) 39.1 % OXYGEN SATURATION, [id number] 09:45:00 Test Item Value Reference Range Comments O2 SATURATION (MEASURED) (BEAKER) (test tlea=0769) 28.0 % RAD, CHEST, 1 VIEW, NON [id number] 08:03:00Reason for exam:->s/p ACBShould this be performed at the bedside?->YesFINAL REPORT RAD, CHEST, 1 VIEW, NON DEPT INDICATION: s/p ACB COMPARISON: Prior day' s exam FINDINGS: Portable frontal view of the chest. IMPRESSION: Support Lines: Baldwin-Allison tip overlies the pulmonary outflow tract. Mediastinal drains. Lungs and pleura: Small right effusion and interstitial edema are unchanged. Trace left effusion. No pneumothorax.Heart and mediastinum: Stable contours. Stable surgical changes.Additional findings: None. Signed: Marcella Burdick Verified Date/Time: 05/27/2019 08:03:19 Reading Location: [facility] C013V Neuro Reading Room POCT-GLUCOSE [id number] 06:38:00 Test Item Value Reference Range Comments POC-GLUCOSE METER (BEAKER) 134 mg/dL 70-110 : TESTED AT [facility] [address] [place] [address] (test mzyh=5450) [facility], [address]: Fishing Rod Mechanic/Colorer RH=[id number] for SOURAV CARPIO CALCIUM, [id number] 04:05:00 Test Item Value Reference Range Comments CALCIUM IONIZED (BEAKER) (test ecjz=981) 1.11 mmol/L 1.12-1.27 PH, BLOOD (BEAKER) (test uwel=3322) 7.41 OXYGEN SATURATION, [id number] 04:04:00 Test Item Value Reference Range Comments O2 SATURATION (MEASURED) (BEAKER) (test icbe=2744) 40.6 % BLOOD GAS, [id number] 04:04:00 Test Item Value Reference Range Comments PH ARTERIAL (BEAKER) (test lztv=387) 7.41 7.35-7.45 PCO2 ARTERIAL (BEAKER) (test dzur=194) 34 mmHg 35-45 PO2 ARTERIAL (BEAKER) (test khlq=028) 82 mmHg 80-90 O2 SATURATION ARTERIAL (BEAKER) (test ffqm=264) 96.5 % 96.0-97.0 HCO3 ARTERIAL (BEAKER) (test ovvt=535) 21 mmol/L 21-29 BASE EXCESS ARTERIAL (BEAKER) (test icuo=921) -3.1 mmol/L -2.0-3.0 PATIENT TEMPERATURE (BEAKER) (test bkxj=4788) 36.7 C FIO2 (BEAKER) (test zszt=0826) 36.0 % BASIC METABOLIC [id number] 04:02:00 Test Item Value Reference Range Comments SODIUM (BEAKER) (test 134 meq/L 136-145 feup=144) POTASSIUM (BEAKER) (test 4.5 meq/L 3.5-5.1 jjhq=402) CHLORIDE (BEAKER) (test 103 meq/L 98-107 iiqq=766) CO2 (BEAKER) (test 21 meq/L 22-29 wpsf=902) BLOOD UREA NITROGEN 36 mg/dL 7-21 (BEAKER) (test vcsp=378) CREATININE (BEAKER) (test 2.89 mg/dL 0.57-1.25 bbza=730) GLUCOSE RANDOM (BEAKER) 132 mg/dL 70-105 (test mrgf=203) CALCIUM (BEAKER) (test 8.0 mg/dL 8.4-10.2 xses=218) EGFR (BEAKER) (test 22 mL/min/1.73 sq m ESTIMATED GFR IS NOT klfj=5508) ACCURATE CREATININE CLEARANCE IN PREDICTING GLOMERULAR FILTRATION RATE. ESTIMATED GFR IS NOT APPLICABLE FOR DIALYSIS PATIENTS. Fishing Rod Mechanic ID - MARISABEL [id number] 03:52:00 Test Item Value Reference Range Comments PHOSPHORUS (BEAKER) (test vllb=825) 4.6 mg/dL 2.3-4.7 Fishing Rod Mechanic ID - MARISABEL [id number] 03:52:00 Test Item Value Reference Range Comments MAGNESIUM (BEAKER) (test yyli=391) 2.4 mg/dL 1.6-2.6 Fishing Rod Mechanic ID - MARISABEL [id number] 03:49:00 Test Item Value Reference Range Comments PROTIME (BEAKER) (test jwkh=057) 16.6 seconds 11.9-14.2 INR (BEAKER) (test cnsx=181) 1.4 <=5.9 PARTIAL THROMBOPLASTIN TIME (BEAKER) (test 52.6 seconds 22.5-36.0 gmnv=043) Effective 10/12/2018: PT Reference Range ChangeNew: 11.9-14.2 Previous: 11.7- 14.7RECOMMENDED COUMADIN/WARFARIN INR THERAPY RANGESSTANDARD DOSE: 2.0-3.0 Includes: PROPHYLAXIS for venous thrombosis, systemic embolization; TREATMENT for venous thrombosis and/or pulmonary embolus.HIGH RISK: Target INR is2.5-3.5 for patients wiht mechanical heart valves.CBC W/PLT COUNT & AUTO [id number] 03:47:00 Test Item Value Reference Range Comments WHITE BLOOD CELL COUNT (BEAKER) (test jqop=986) 8.7 K/ L 3.5-10.5 RED BLOOD CELL COUNT (BEAKER) (test eltv=963) 2.66 M/ L 4.63-6.08 HEMOGLOBIN (BEAKER) (test xygp=103) 8.0 GM/DL 13.7-17.5 HEMATOCRIT (BEAKER) (test ozzp=622) 23.6 % 40.1-51.0 MEAN CORPUSCULAR VOLUME (BEAKER) (test fcao=673) 88.7 fL 79.0-92.2 MEAN CORPUSCULAR HEMOGLOBIN (BEAKER) (test 30.1 pg 25.7-32.2 syfi=008) MEAN CORPUSCULAR HEMOGLOBIN CONC (BEAKER) (test 33.9 GM/DL 32.3-36.5 gomb=534) RED CELL DISTRIBUTION WIDTH (BEAKER) (test 15.5 % 11.6-14.4 ognq=051) PLATELET COUNT (BEAKER) (test ihxz=491) 114 K/CU MM 150-450 MEAN PLATELET VOLUME (BEAKER) (test ehfl=026) 10.6 fL 9.4-12.4 NUCLEATED RED BLOOD CELLS (BEAKER) (test 0 /100 WBC 0-0 sdhf=202) NEUTROPHILS RELATIVE PERCENT (BEAKER) (test 79 % pwsq=165) LYMPHOCYTES RELATIVE PERCENT (BEAKER) (test 9 % ntzg=097) MONOCYTES RELATIVE PERCENT (BEAKER) (test 11 % cyod=088) EOSINOPHILS RELATIVE PERCENT (BEAKER) (test 0 % crne=381) BASOPHILS RELATIVE PERCENT (BEAKER) (test 0 % sxqr=841) NEUTROPHILS ABSOLUTE COUNT (BEAKER) (test 6.91 K/ L 1.78-5.38 pqar=806) LYMPHOCYTES ABSOLUTE COUNT (BEAKER) (test 0.81 K/ L 1.32-3.57 xned=839) MONOCYTES ABSOLUTE COUNT (BEAKER) (test 0.93 K/ L 0.30-0.82 rhwt=725) EOSINOPHILS ABSOLUTE COUNT (BEAKER) (test 0.00 K/ L 0.04-0.54 qvgu=902) BASOPHILS ABSOLUTE COUNT (BEAKER) (test 0.01 K/ L 0.01-0.08 exqt=898) IMMATURE GRANULOCYTES-RELATIVE PERCENT (BEAKER) 1 % 0-1 (test pfef=9468) POCT-GLUCOSE [id number] 01:56:00 Test Item Value Reference Range Comments POC-GLUCOSE METER (BEAKER) 125 mg/dL 70-110 : TESTED AT [facility] [address] [facility] (test xlmp=7439) [facility], [address]: Fishing Rod Mechanic/Colorer UP=[id number] for SOURAV CARPIO BASIC METABOLIC [id number] 21:41:00 Test Item Value Reference Range Comments SODIUM (BEAKER) (test 135 meq/L 136-145 btww=542) POTASSIUM (BEAKER) (test 4.7 meq/L 3.5-5.1 rxfp=336) CHLORIDE (BEAKER) (test 105 meq/L 98-107 sqjs=469) CO2 (BEAKER) (test 21 meq/L 22-29 swzk=234) BLOOD UREA NITROGEN 33 mg/dL 7-21 (BEAKER) (test fknk=738) CREATININE (BEAKER) (test 2.88 mg/dL 0.57-1.25 xbgs=994) GLUCOSE RANDOM (BEAKER) 120 mg/dL 70-105 (test ihvs=033) CALCIUM (BEAKER) (test 7.9 mg/dL 8.4-10.2 vhro=272) EGFR (BEAKER) (test 22 mL/min/1.73 sq m ESTIMATED GFR IS NOT vlfq=1908) ACCURATE CREATININE CLEARANCE IN PREDICTING GLOMERULAR FILTRATION RATE. ESTIMATED GFR IS NOT APPLICABLE FOR DIALYSIS PATIENTS. Fishing Rod Mechanic ID - [id number] 21:38:00 Test Item Value Reference Range Comments MAGNESIUM (BEAKER) (test dsag=350) 2.3 mg/dL 1.6-2.6 Fishing Rod Mechanic ID - DBLACTIC ACID, [id number] 21:36:00 Test Item Value Reference Range Comments LACTATE BLOOD ARTERIAL (2) 1.5 mmol/L 0.5-2.2 Specimen moderately hemolyzed (BEAKER) (test jehc=4392) Fishing Rod Mechanic ID - DBHEMOGLOBIN AND [id number] 21:25:00 Test Item Value Reference Range Comments HEMOGLOBIN (BEAKER) (test wyun=347) 8.2 GM/DL 13.7-17.5 HEMATOCRIT (BEAKER) (test uxgh=753) 24.6 % 40.1-51.0 Fishing Rod Mechanic ID - 6000CALCIUM, [id number] 20:58:00 Test Item Value Reference Range Comments CALCIUM IONIZED (BEAKER) (test zjtj=600) 1.08 mmol/L 1.12-1.27 PH, BLOOD (BEAKER) (test tylf=6072) 7.42 POCT-GLUCOSE [id number] 16:35:00 Test Item Value Reference Range Comments POC-GLUCOSE METER (BEAKER) 93 mg/dL 70-110 : Notified RN/MD: TESTED AT (test expm=4080) [facility] [address] [facility], [address]: Fishing Rod Mechanic/Colorer TY=[id number] for MONE TERRAZAS CBC W/PLT COUNT & AUTO [id number] 14:27:00 Test Item Value Reference Range Comments WHITE BLOOD CELL COUNT (BEAKER) (test ftzz=649) 9.0 K/ L 3.5-10.5 RED BLOOD CELL COUNT (BEAKER) (test pdjf=612) 2.93 M/ L 4.63-6.08 HEMOGLOBIN (BEAKER) (test eemy=620) 8.7 GM/DL 13.7-17.5 HEMATOCRIT (BEAKER) (test sves=488) 25.8 % 40.1-51.0 MEAN CORPUSCULAR VOLUME (BEAKER) (test danw=996) 88.1 fL 79.0-92.2 MEAN CORPUSCULAR HEMOGLOBIN (BEAKER) (test 29.7 pg 25.7-32.2 kxnb=862) MEAN CORPUSCULAR HEMOGLOBIN CONC (BEAKER) (test 33.7 GM/DL 32.3-36.5 djsm=826) RED CELL DISTRIBUTION WIDTH (BEAKER) (test 14.8 % 11.6-14.4 jbcf=199) PLATELET COUNT (BEAKER) (test omiv=338) 153 K/CU MM 150-450 MEAN PLATELET VOLUME (BEAKER) (test iudy=792) 10.7 fL 9.4-12.4 NUCLEATED RED BLOOD CELLS (BEAKER) (test 0 /100 WBC 0-0 unfd=845) NEUTROPHILS RELATIVE PERCENT (BEAKER) (test 81 % dkbk=471) LYMPHOCYTES RELATIVE PERCENT (BEAKER) (test 8 % xdeh=908) MONOCYTES RELATIVE PERCENT (BEAKER) (test 11 % mtrv=112) EOSINOPHILS RELATIVE PERCENT (BEAKER) (test 0 % kyyo=803) BASOPHILS RELATIVE PERCENT (BEAKER) (test 0 % zfhb=810) NEUTROPHILS ABSOLUTE COUNT (BEAKER) (test 7.24 K/ L 1.78-5.38 lgue=775) LYMPHOCYTES ABSOLUTE COUNT (BEAKER) (test 0.75 K/ L 1.32-3.57 dqmc=990) MONOCYTES ABSOLUTE COUNT (BEAKER) (test 0.94 K/ L 0.30-0.82 lhts=007) EOSINOPHILS ABSOLUTE COUNT (BEAKER) (test 0.00 K/ L 0.04-0.54 ikdp=248) BASOPHILS ABSOLUTE COUNT (BEAKER) (test 0.01 K/ L 0.01-0.08 vbja=809) IMMATURE GRANULOCYTES-RELATIVE PERCENT (BEAKER) 0 % 0-1 (test yzzi=6448) POCT-GLUCOSE [id number] 14:18:00 Test Item Value Reference Range Comments POC-GLUCOSE METER (BEAKER) 96 mg/dL 70-110 : Notified RN/MD: TESTED AT (test wavv=2972) [address], [address]: Fishing Rod Mechanic/Colorer HS=[id number] for MONE TERRAZAS POCT-GLUCOSE [id number] 12:04:00 Test Item Value Reference Range Comments POC-GLUCOSE METER (BEAKER) 132 mg/dL 70-110 : Notified RN/MD: TESTED AT (test blco=5377) [address], [address]: Fishing Rod Mechanic/Colorer AY=[id number] for SENTHIL TERRAZASI PLATELET AGGREGATION: FUNCTION [id number] 10:31:00 Test Item Value Reference Range Comments [id number] (BEAKER) Lourdes Nielson MD (test jjfr=4234) (electronic signature) PLATELET COUNT AGG (BEAKER) 189 K/CU MM 150-450 (test wtfg=1361) PLATELET RICH PLASMA(BEAKER) 242 k/cu mm 200-300 (test qzzc=7230) PLATELET FUNCTION SCREEN Normal aggregation results INTERPRETATION (BEAKER) (test with ADP. No evidence of jrcr=0001) platelet dysfunction or P2Y12 inhibitor effect. Platelet Function Screen results may be falsely low with platelet counts<75, 000/cu mm.Fishing Rod Mechanic ID- 6000POCT-GLUCOSE [id number] 10:01:00 Test Item Value Reference Range Comments POC-GLUCOSE METER (BEAKER) 161 mg/dL 70-110 : TESTED AT [address] (test casa=8028) [facility], [address]: Fishing Rod Mechanic/Colorer CQ=[id number] for MONE TERRAZAS RAD, CHEST, 1 VIEW, NON [id number] 08:11:00Reason for exam:->s/p ACBShould this be performed at the bedside?->YesFINAL REPORT RAD, CHEST, 1 VIEW, NON DEPT INDICATION: s/p ACB COMPARISON: Prior day' s exam FINDINGS: Portable frontal view of the chest. IMPRESSION: Support Lines: Baldwin-Allison tip overlies the pulmonary outflow tract. Cardiac valvular prosthesis. Sternotomy wires. Lungs and pleura: Diffuse interstitial opacities and trace right effusion, favored to represent interstitial edema. Superimposed infection may be excluded clinically. No pneumothorax.Heart and mediastinum: Stable contours. Stable surgical changes.Additional findings: None. Signed: Marcella Burdick VerifiedDate/Time: 05/26/2019 08:11:34 Reading Location: [facility] Radiology Reading Room POCT-GLUCOSE [id number] 07:34: 00 Test Item Value Reference Range Comments POC-GLUCOSE METER (BEAKER) 179 mg/dL 70-110 : Notified RN/MD: TESTED AT (test otqj=9845) [address], [address]: Fishing Rod Mechanic/Colorer XF=[id number] for MONE TERRAZAS CALCIUM, [id number] 07:09:00 Test Item Value Reference Range Comments CALCIUM IONIZED (BEAKER) (test nkde=750) 1.04 mmol/L 1.12-1.27 PH, BLOOD (BEAKER) (test goih=8799) 7.42 THROMBOELASTOGRAPH (TEG)2019-05-26 06:52:00 Test Item Value Reference Range Comments TEG ACTIVATED CLOTTING TIME (BEAKER) (test 5.1 minutes 4.0-7.0 oltl=3749) TEG FIBRINOGEN ACTIVITY (BEAKER) (test 75.1 degrees 61.0-73.0 kvve=4429) TEG PLT. AGGREGATION (BEAKER) (test beel=1753) 65.8 MM 55.0-65.0 TEG FIBRINOLYSIS (BEAKER) (test zfvj=7270) 2.3 % 0.0-5.0 TGH ACTIVATED CLOTTING TIME (BEAKER) (test 4.8 minutes 4.0-7.0 nxno=6443) TGH FIBRINOGEN ACTIVITY (BEAKER) (test 76.4 degrees 61.0-73.0 njbi=1762) TGH PLT. AGGREGATION (BEAKER) (test kkjp=9835) 71.7 MM 55.0-65.0 TGH FIBRINOLYSIS (BEAKER) (test ymzc=2894) 0.0 % 0.0-5.0 [id number] 06:19:00 Test Item Value Reference Range Comments FIBRINOGEN LEVEL (BEAKER) (test lryn=464) 305 mg/dl 225-434 [id number] 06:19:00 Test Item Value Reference Range Comments PARTIAL THROMBOPLASTIN TIME (BEAKER) (test 44.3 seconds 22.5-36.0 ffrv=670) PROTHROMBIN [id number] 06:18:00 Test Item Value Reference Range Comments PROTIME (BEAKER) (test ayol=806) 17.8 seconds 11.9-14.2 INR (BEAKER) (test slvu=086) 1.5 <=5.9 Effective 10/12/2018: PT Reference Range ChangeNew: 11.9-14.2 Previous: 11.7- 14.7RECOMMENDED COUMADIN/WARFARIN INR THERAPY RANGESSTANDARD DOSE: 2.0-3.0 Includes: PROPHYLAXIS for venous thrombosis, systemic embolization; TREATMENT for venous thrombosis and/or pulmonary embolus.HIGH RISK: Target INR is2.5-3.5 for patients wiht mechanical heart valves.BASIC METABOLIC [id number] 06:16: 00 Test Item Value Reference Range Comments SODIUM (BEAKER) (test 140 meq/L 136-145 psxj=100) POTASSIUM (BEAKER) (test 4.8 meq/L 3.5-5.1 bqhm=282) CHLORIDE (BEAKER) (test 110 meq/L 98-107 wmlz=547) CO2 (BEAKER) (test 20 meq/L 22-29 jkoe=401) BLOOD UREA NITROGEN 27 mg/dL 7-21 (BEAKER) (test myad=440) CREATININE (BEAKER) (test 2.38 mg/dL 0.57-1.25 vlkm=655) GLUCOSE RANDOM (BEAKER) 215 mg/dL 70-105 (test keee=739) CALCIUM (BEAKER) (test 7.5 mg/dL 8.4-10.2 vvkx=812) EGFR (BEAKER) (test 27 mL/min/1.73 sq m ESTIMATED GFR IS NOT ruqk=4001) ACCURATE CREATININE CLEARANCE IN PREDICTING GLOMERULAR FILTRATION RATE. ESTIMATED GFR IS NOT APPLICABLE FOR DIALYSIS PATIENTS. Fishing Rod Mechanic ID - MARISABEL [id number] 06:14:00 Test Item Value Reference Range Comments PHOSPHORUS (BEAKER) (test iugi=161) 4.0 mg/dL 2.3-4.7 Fishing Rod Mechanic ID - MARISABEL [id number] 06:14:00 Test Item Value Reference Range Comments MAGNESIUM (BEAKER) (test oosf=524) 2.4 mg/dL 1.6-2.6 Fishing Rod Mechanic ID - MARISABEL MHEPATIC FUNCTION [id number] 06:14:00 Test Item Value Reference Range Comments TOTAL PROTEIN (BEAKER) (test bupz=492) 5.3 gm/dL 6.0-8.3 ALBUMIN (BEAKER) (test frzz=4389) 3.4 g/dL 3.5-5.0 BILIRUBIN TOTAL (BEAKER) (test tjsw=228) 0.7 mg/dL 0.2-1.2 BILIRUBIN DIRECT (BEAKER) (test wmgk=967) 0.4 mg/dL 0.1-0.5 ALKALINE PHOSPHATASE (BEAKER) (test gabc=302) 68 U/L 40-150 AST (SGOT) (BEAKER) (test meby=169) 20 U/L 5-34 ALT (SGPT) (BEAKER) (test skgl=244) 12 U/L 6-55 Fishing Rod Mechanic ID - MARISABEL MPLATELET [id number] 06:00:00 Test Item Value Reference Range Comments PLATELET COUNT (BEAKER) (test roha=023) 180 K/CU MM 150-450 Fishing Rod Mechanic ID - [id number] AND [id number] 06:00:00 Test Item Value Reference Range Comments HEMOGLOBIN (BEAKER) (test afyy=188) 8.5 GM/DL 13.7-17.5 HEMATOCRIT (BEAKER) (test xtmp=729) 25.2 % 40.1-51.0 Fishing Rod Mechanic ID - [id number]-GLUCOSE [id number] 05:43:00 Test Item Value Reference Range Comments POC-GLUCOSE METER (BEAKER) 199 mg/dL 70-110 : TESTED AT [address] (test iztk=5234) [facility], [id number]: Fishing Rod Mechanic/Colorer WZ=[id number] for SOURAV CARPIO OXYGEN SATURATION, [id number] 04:19:00 Test Item Value Reference Range Comments O2 SATURATION (MEASURED) (BEAKER) (test oupc=2383) 50.7 % [id number] 04:10:00 Test Item Value Reference Range Comments PROTIME (BEAKER) (test xaoe=617) 18.2 seconds 11.9-14.2 INR (BEAKER) (test pmgk=070) 1.6 <=5.9 PARTIAL THROMBOPLASTIN TIME (BEAKER) (test 44.8 seconds 22.5-36.0 nxnr=905) Effective 10/12/2018: PT Reference Range ChangeNew: 11.9-14.2 Previous: 11.7- 14.7RECOMMENDED COUMADIN/WARFARIN INR THERAPY RANGESSTANDARD DOSE: 2.0-3.0 Includes: PROPHYLAXIS for venous thrombosis, systemic embolization; TREATMENT for venous thrombosis and/or pulmonary embolus.HIGH RISK: Target INR is2.5-3.5 for patients wiht mechanical heart valves.CBC W/PLT COUNT & AUTO [id number] 04:05:00 Test Item Value Reference Range Comments WHITE BLOOD CELL COUNT (BEAKER) (test ijst=935) 8.4 K/ L 3.5-10.5 RED BLOOD CELL COUNT (BEAKER) (test thdw=418) 2.84 M/ L 4.63-6.08 HEMOGLOBIN (BEAKER) (test yvfr=805) 8.5 GM/DL 13.7-17.5 HEMATOCRIT (BEAKER) (test qddb=793) 25.6 % 40.1-51.0 MEAN CORPUSCULAR VOLUME (BEAKER) (test fnfs=189) 90.1 fL 79.0-92.2 MEAN CORPUSCULAR HEMOGLOBIN (BEAKER) (test 29.9 pg 25.7-32.2 xxhe=825) MEAN CORPUSCULAR HEMOGLOBIN CONC (BEAKER) (test 33.2 GM/DL 32.3-36.5 xdvb=027) RED CELL DISTRIBUTION WIDTH (BEAKER) (test 13.9 % 11.6-14.4 tukx=442) PLATELET COUNT (BEAKER) (test rbzv=489) 188 K/CU MM 150-450 MEAN PLATELET VOLUME (BEAKER) (test klkw=331) 10.3 fL 9.4-12.4 NUCLEATED RED BLOOD CELLS (BEAKER) (test 0 /100 WBC 0-0 haee=549) NEUTROPHILS RELATIVE PERCENT (BEAKER) (test 80 % qoof=149) LYMPHOCYTES RELATIVE PERCENT (BEAKER) (test 9 % bjga=427) MONOCYTES RELATIVE PERCENT (BEAKER) (test 11 % cths=688) EOSINOPHILS RELATIVE PERCENT (BEAKER) (test 0 % xcyo=444) BASOPHILS RELATIVE PERCENT (BEAKER) (test 0 % dcpc=583) NEUTROPHILS ABSOLUTE COUNT (BEAKER) (test 6.76 K/ L 1.78-5.38 kyzz=347) LYMPHOCYTES ABSOLUTE COUNT (BEAKER) (test 0.74 K/ L 1.32-3.57 hgrm=336) MONOCYTES ABSOLUTE COUNT (BEAKER) (test 0.89 K/ L 0.30-0.82 mbim=125) EOSINOPHILS ABSOLUTE COUNT (BEAKER) (test 0.01 K/ L 0.04-0.54 aiur=447) BASOPHILS ABSOLUTE COUNT (BEAKER) (test 0.02 K/ L 0.01-0.08 jvvh=770) IMMATURE GRANULOCYTES-RELATIVE PERCENT (BEAKER) 0 % 0-1 (test nozo=6914) [id number] 04:00:00 Test Item Value Reference Range Comments FIBRINOGEN LEVEL (BEAKER) (test iynn=220) 271 mg/dl 225-434 BLOOD GAS, [id number] 03:52:00 Test Item Value Reference Range Comments PH ARTERIAL (BEAKER) (test rsab=725) 7.42 7.35-7.45 PCO2 ARTERIAL (BEAKER) (test bcgk=309) 32 mmHg 35-45 PO2 ARTERIAL (BEAKER) (test ogeb=152) 81 mmHg 80-90 O2 SATURATION ARTERIAL (BEAKER) (test mpzo=266) 96.3 % 96.0-97.0 HCO3 ARTERIAL (BEAKER) (test qtid=860) 20 mmol/L 21-29 BASE EXCESS ARTERIAL (BEAKER) (test jwrc=669) -3.6 mmol/L -2.0-3.0 PATIENT TEMPERATURE (BEAKER) (test fnla=5153) 36.8 C FIO2 (BEAKER) (test nwmk=0097) 36.0 % POCT-GLUCOSE [id number] 02:18:00 Test Item Value Reference Range Comments POC-GLUCOSE METER (BEAKER) 215 mg/dL 70-110 : TESTED AT [address] (test shrh=2676) [facility], [id number]: Fishing Rod Mechanic/Colorer LT=[id number] for SOURAV CARPIO LACTIC ACID, [id number] 02:12:00 Test Item Value Reference Range Comments LACTATE BLOOD ARTERIAL (2) (BEAKER) (test 4.2 mmol/L 0.5-2.2 ldus=3607) Fishing Rod Mechanic ID - MARISABEL MHEMOGLOBIN AND [id number] 00:17:00 Test Item Value Reference Range Comments HEMOGLOBIN (BEAKER) (test ofvy=947) 7.2 GM/DL 13.7-17.5 HEMATOCRIT (BEAKER) (test qwsc=119) 22.0 % 40.1-51.0 Fishing Rod Mechanic ID - 6000BLOOD GAS, [id number] 00:17:00 Test Item Value Reference Range Comments PH ARTERIAL (BEAKER) (test xsbx=860) 7.45 7.35-7.45 PCO2 ARTERIAL (BEAKER) (test mgyj=368) 32 mmHg 35-45 PO2 ARTERIAL (BEAKER) (test osrn=031) 85 mmHg 80-90 O2 SATURATION ARTERIAL (BEAKER) (test uhgi=550) 96.9 % 96.0-97.0 HCO3 ARTERIAL (BEAKER) (test aepw=737) 22 mmol/L 21-29 BASE EXCESS ARTERIAL (BEAKER) (test eycs=340) -1.8 mmol/L -2.0-3.0 PATIENT TEMPERATURE (BEAKER) (test svjf=5783) 36.8 C FIO2 (BEAKER) (test adbk=8884) 40.0 % [id number] 22:32:00 Test Item Value Reference Range Comments PARTIAL THROMBOPLASTIN TIME (BEAKER) (test 92.6 seconds 22.5-36.0 jwqn=468) [id number] 22:31:00 Test Item Value Reference Range Comments FIBRINOGEN LEVEL (BEAKER) (test tdyy=060) 251 mg/dl 225-434 PROTHROMBIN TIME/[id number] 22:30:00 Test Item Value Reference Range Comments PROTIME (BEAKER) (test dxvd=578) 17.6 seconds 11.9-14.2 INR (BEAKER) (test uhrh=912) 1.5 <=5.9 Effective 10/12/2018: PT Reference Range ChangeNew: 11.9-14.2 Previous: 11.7- 14.7RECOMMENDED COUMADIN/WARFARIN INR THERAPY RANGESSTANDARD DOSE: 2.0-3.0 Includes: PROPHYLAXIS for venous thrombosis, systemic embolization; TREATMENT for venous thrombosis and/or pulmonary embolus.HIGH RISK: Target INR is2.5-3.5 for patients wiht mechanical heart valves.CBC (HEMOGRAM ONLY)2019-05-25 22:23:00 Test Item Value Reference Range Comments WHITE BLOOD CELL COUNT (BEAKER) (test udrg=497) 9.1 K/ L 3.5-10.5 RED BLOOD CELL COUNT (BEAKER) (test okaw=785) 2.68 M/ L 4.63-6.08 HEMOGLOBIN (BEAKER) (test hzkl=990) 8.2 GM/DL 13.7-17.5 HEMATOCRIT (BEAKER) (test vulk=459) 23.9 % 40.1-51.0 MEAN CORPUSCULAR VOLUME (BEAKER) (test oqqq=305) 89.2 fL 79.0-92.2 MEAN CORPUSCULAR HEMOGLOBIN (BEAKER) (test 30.6 pg 25.7-32.2 lddu=816) MEAN CORPUSCULAR HEMOGLOBIN CONC (BEAKER) (test 34.3 GM/DL 32.3-36.5 dhoi=566) RED CELL DISTRIBUTION WIDTH (BEAKER) (test 14.2 % 11.6-14.4 otse=987) PLATELET COUNT (BEAKER) (test grue=691) 212 K/CU MM 150-450 MEAN PLATELET VOLUME (BEAKER) (test dpqp=134) 10.0 fL 9.4-12.4 NUCLEATED RED BLOOD CELLS (BEAKER) (test 0 /100 WBC 0-0 kktz=328) LACTIC ACID, [id number] 21:52:00 Test Item Value Reference Range Comments LACTATE BLOOD ARTERIAL (2) (BEAKER) (test 4.2 mmol/L 0.5-2.2 hvrf=8220) Fishing Rod Mechanic ID - MEERA EGLUCOSE-STAT [id number] 21:41:00 Test Item Value Reference Range Comments GLUCOSE RANDOM (BEAKER) (test nxer=854) 197 mg/dL 70-110 HGB/HCT (H&H) - STAT [id number] 21:41:00 Test Item Value Reference Range Comments HEMOGLOBIN (BEAKER) (test ldpr=032) 8.7 g/dL 13.0-16.8 HEMATOCRIT (BEAKER) (test gicj=700) 26.0 % 40.0-50.0 SODIUM NA-STAT [id number] 21:40:00 Test Item Value Reference Range Comments SODIUM (BEAKER) (test cdiq=538) 137 meq/L 135-148 POTASSIUM-STAT [id number] 21:40:00 Test Item Value Reference Range Comments POTASSIUM (BEAKER) (test klgh=560) 4.5 meq/L 3.6-5.5 BLOOD GAS, [id number] 21:40:00 Test Item Value Reference Range Comments PH ARTERIAL (BEAKER) (test boqh=846) 7.43 7.35-7.45 PCO2 ARTERIAL (BEAKER) (test vbze=002) 34 mmHg 35-45 PO2 ARTERIAL (BEAKER) (test inlp=129) 82 mmHg 80-90 O2 SATURATION ARTERIAL (BEAKER) (test dqnf=866) 96.6 % 96.0-97.0 HCO3 ARTERIAL (BEAKER) (test mkqm=096) 22 mmol/L 21-29 BASE EXCESS ARTERIAL (BEAKER) (test zhqn=480) -1.6 mmol/L -2.0-3.0 PATIENT TEMPERATURE (BEAKER) (test ejbw=8614) 36.7 C FIO2 (BEAKER) (test hgih=9463) 40.0 % LACTIC ACID, [id number] 19:53:00 Test Item Value Reference Range Comments LACTATE BLOOD ARTERIAL (2) (BEAKER) (test 5.8 mmol/L 0.5-2.2 ckts=3228) Fishing Rod Mechanic ID - MEERA GAN GAS, [id number] 19:29:00 Test Item Value Reference Range Comments PH ARTERIAL (BEAKER) (test gcmy=793) 7.36 7.35-7.45 PCO2 ARTERIAL (BEAKER) (test iiuh=193) 31 mmHg 35-45 PO2 ARTERIAL (BEAKER) (test gzqd=781) 68 mmHg 80-90 O2 SATURATION ARTERIAL (BEAKER) (test ndow=292) 93.7 % 96.0-97.0 HCO3 ARTERIAL (BEAKER) (test fmps=915) 17 mmol/L 21-29 BASE EXCESS ARTERIAL (BEAKER) (test cogy=611) -7.9 mmol/L -2.0-3.0 PATIENT TEMPERATURE (BEAKER) (test kkev=5461) 36.2 C FIO2 (BEAKER) (test wmhi=5484) 40.0 % CALCIUM, [id number] 19:28:00 Test Item Value Reference Range Comments CALCIUM IONIZED (BEAKER) (test apti=429) 1.10 mmol/L 1.12-1.27 PH, BLOOD (BEAKER) (test lgld=2404) 7.36 RAD, CHEST, 1 VIEW, NON [id number] 19:01:00FINAL REPORT Chest, portable AP view History: Status post ACD Comparison: 2019 IMPRESSION: The tip of endotracheal tube is at the level of the clavicles. The heart is stably enlarged. Patient status post median sternotomy. Right IJ Baldwin-Allison catheter tip projects over the pulmonary artery. Mediastinal drains are in place. A enteric tube is present with distal tip well below the diaphragm. Bibasilar atelectasis is present. No sizable pleural effusion or pneumothorax. Signed: Robert Montiel MDReport Verified Date/Time: 05/25/2019 19:01:50 Reading Location: [address] Reading Room LACTIC ACID, [id number] 18:38:00 Test Item Value Reference Range Comments LACTATE BLOOD ARTERIAL (2) (BEAKER) (test 2.9 mmol/L 0.5-2.2 kebu=7310) Fishing Rod Mechanic ID - MEERA GAN GAS, [id number] 18:05:00 Test Item Value Reference Range Comments PH ARTERIAL (BEAKER) (test ylgt=034) 7.35 7.35-7.45 PCO2 ARTERIAL (BEAKER) (test cgmv=475) 39 mmHg 35-45 PO2 ARTERIAL (BEAKER) (test kufy=429) 79 mmHg 80-90 O2 SATURATION ARTERIAL (BEAKER) (test ohve=222) 95.6 % 96.0-97.0 HCO3 ARTERIAL (BEAKER) (test zgui=197) 21 mmol/L 21-29 BASE EXCESS ARTERIAL (BEAKER) (test axou=091) -4.3 mmol/L -2.0-3.0 PATIENT TEMPERATURE (BEAKER) (test lnkk=3242) 36.2 C FIO2 (BEAKER) (test fssl=5165) 40.0 % CBC W/PLT COUNT & AUTO [id number] 16:55:00 Test Item Value Reference Range Comments WHITE BLOOD CELL COUNT (BEAKER) (test ouem=707) 12.5 K/ L 3.5-10.5 RED BLOOD CELL COUNT (BEAKER) (test ifqk=627) 3.51 M/ L 4.63-6.08 HEMOGLOBIN (BEAKER) (test kcvg=598) 10.5 GM/DL 13.7-17.5 HEMATOCRIT (BEAKER) (test xclz=415) 31.6 % 40.1-51.0 MEAN CORPUSCULAR VOLUME (BEAKER) (test vypy=975) 90.0 fL 79.0-92.2 MEAN CORPUSCULAR HEMOGLOBIN (BEAKER) (test 29.9 pg 25.7-32.2 eaqu=430) MEAN CORPUSCULAR HEMOGLOBIN CONC (BEAKER) (test 33.2 GM/DL 32.3-36.5 ndki=489) RED CELL DISTRIBUTION WIDTH (BEAKER) (test 14.1 % 11.6-14.4 vfhd=453) PLATELET COUNT (BEAKER) (test upvt=387) 207 K/CU MM 150-450 MEAN PLATELET VOLUME (BEAKER) (test fuwb=314) 9.9 fL 9.4-12.4 NUCLEATED RED BLOOD CELLS (BEAKER) (test 0 /100 WBC 0-0 ilik=061) NEUTROPHILS RELATIVE PERCENT (BEAKER) (test 84 % rhor=467) LYMPHOCYTES RELATIVE PERCENT (BEAKER) (test 6 % dqkl=287) MONOCYTES RELATIVE PERCENT (BEAKER) (test 10 % hrnm=948) EOSINOPHILS RELATIVE PERCENT (BEAKER) (test 0 % fydk=834) BASOPHILS RELATIVE PERCENT (BEAKER) (test 0 % bulv=270) NEUTROPHILS ABSOLUTE COUNT (BEAKER) (test 10.45 K/ L 1.78-5.38 lxpx=334) LYMPHOCYTES ABSOLUTE COUNT (BEAKER) (test 0.73 K/ L 1.32-3.57 ycjf=431) MONOCYTES ABSOLUTE COUNT (BEAKER) (test 1.19 K/ L 0.30-0.82 qewq=089) EOSINOPHILS ABSOLUTE COUNT (BEAKER) (test 0.04 K/ L 0.04-0.54 gwpw=216) BASOPHILS ABSOLUTE COUNT (BEAKER) (test 0.02 K/ L 0.01-0.08 azbp=845) IMMATURE GRANULOCYTES-RELATIVE PERCENT (BEAKER) 0 % 0-1 (test fjck=7613) BLOOD GAS, [id number] 16:41:00 Test Item Value Reference Range Comments PH ARTERIAL (BEAKER) (test yjps=362) 7.38 7.35-7.45 PCO2 ARTERIAL (BEAKER) (test oysq=982) 31 mmHg 35-45 PO2 ARTERIAL (BEAKER) (test lgmu=732) 107 mmHg 80-90 O2 SATURATION ARTERIAL (BEAKER) (test siyo=262) 98.1 % 96.0-97.0 HCO3 ARTERIAL (BEAKER) (test hevg=371) 18 mmol/L 21-29 BASE EXCESS ARTERIAL (BEAKER) (test bwtt=155) -6.8 mmol/L -2.0-3.0 PATIENT TEMPERATURE (BEAKER) (test wjnl=7869) 36.0 C FIO2 (BEAKER) (test xcbk=7732) 40.0 % THROMBOELASTOGRAPH (TEG)2019-05-25 15:52:00 Test Item Value Reference Range Comments TEG ACTIVATED CLOTTING TIME (BEAKER) (test 5.4 minutes 4.0-7.0 nfec=1589) TEG FIBRINOGEN ACTIVITY (BEAKER) (test 66.6 degrees 61.0-73.0 xlsg=5876) TEG PLT. AGGREGATION (BEAKER) (test dwlc=6018) 56.2 MM 55.0-65.0 TEG FIBRINOLYSIS (BEAKER) (test pcco=9677) 0.0 % 0.0-5.0 TGH ACTIVATED CLOTTING TIME (BEAKER) (test 5.8 minutes 4.0-7.0 omyy=2248) TGH FIBRINOGEN ACTIVITY (BEAKER) (test 70.3 degrees 61.0-73.0 jeyo=3272) TGH PLT. AGGREGATION (BEAKER) (test balv=9234) 65.8 MM 55.0-65.0 TGH FIBRINOLYSIS (BEAKER) (test xlbn=4717) 0.0 % 0.0-5.0 [id number] 13:39:00 Test Item Value Reference Range Comments PHOSPHORUS (BEAKER) (test xywn=143) 3.3 mg/dL 2.3-4.7 Fishing Rod Mechanic ID - [id number] 13:39:00 Test Item Value Reference Range Comments MAGNESIUM (BEAKER) (test ekbv=818) 1.7 mg/dL 1.6-2.6 Fishing Rod Mechanic ID - NTPBASIC METABOLIC [id number] 13:39:00 Test Item Value Reference Range Comments SODIUM (BEAKER) (test 136 meq/L 136-145 kbgh=336) POTASSIUM (BEAKER) (test 4.6 meq/L 3.5-5.1 ngpo=750) CHLORIDE (BEAKER) (test 108 meq/L 98-107 ibch=955) CO2 (BEAKER) (test 20 meq/L 22-29 eydt=547) BLOOD UREA NITROGEN 25 mg/dL 7-21 (BEAKER) (test inaz=948) CREATININE (BEAKER) (test 2.14 mg/dL 0.57-1.25 hvyq=739) GLUCOSE RANDOM (BEAKER) 168 mg/dL 70-105 (test sfun=915) CALCIUM (BEAKER) (test 8.3 mg/dL 8.4-10.2 yoyl=693) EGFR (BEAKER) (test 31 mL/min/1.73 sq m ESTIMATED GFR IS NOT gybf=6480) ACCURATE CREATININE CLEARANCE IN PREDICTING GLOMERULAR FILTRATION RATE. ESTIMATED GFR IS NOT APPLICABLE FOR DIALYSIS PATIENTS. Fishing Rod Mechanic ID - NTPLACTIC ACID, [id number] 13:30:00 Test Item Value Reference Range Comments LACTATE BLOOD ARTERIAL (2) (BEAKER) (test 1.2 mmol/L 0.5-2.2 rgzt=7789) Fishing Rod Mechanic ID - [id number] 13:24:00 Test Item Value Reference Range Comments PARTIAL THROMBOPLASTIN TIME (BEAKER) (test 61.6 seconds 22.5-36.0 hklp=456) CBC W/PLT COUNT & AUTO [id number] 13:23:00 Test Item Value Reference Range Comments WHITE BLOOD CELL COUNT (BEAKER) (test ohqo=316) 10.2 K/ L 3.5-10.5 RED BLOOD CELL COUNT (BEAKER) (test jkux=782) 3.89 M/ L 4.63-6.08 HEMOGLOBIN (BEAKER) (test ulxe=245) 11.4 GM/DL 13.7-17.5 HEMATOCRIT (BEAKER) (test ycwk=210) 34.7 % 40.1-51.0 MEAN CORPUSCULAR VOLUME (BEAKER) (test nyvj=144) 89.2 fL 79.0-92.2 MEAN CORPUSCULAR HEMOGLOBIN (BEAKER) (test 29.3 pg 25.7-32.2 fenu=032) MEAN CORPUSCULAR HEMOGLOBIN CONC (BEAKER) (test 32.9 GM/DL 32.3-36.5 vdma=510) RED CELL DISTRIBUTION WIDTH (BEAKER) (test 14.2 % 11.6-14.4 jwvm=034) PLATELET COUNT (BEAKER) (test ybyk=185) 176 K/CU MM 150-450 MEAN PLATELET VOLUME (BEAKER) (test lgwk=868) 9.7 fL 9.4-12.4 NUCLEATED RED BLOOD CELLS (BEAKER) (test 0 /100 WBC 0-0 djfs=377) NEUTROPHILS RELATIVE PERCENT (BEAKER) (test 83 % ajov=439) LYMPHOCYTES RELATIVE PERCENT (BEAKER) (test 9 % uhoi=370) MONOCYTES RELATIVE PERCENT (BEAKER) (test 7 % snsg=923) EOSINOPHILS RELATIVE PERCENT (BEAKER) (test 1 % xfhu=505) BASOPHILS RELATIVE PERCENT (BEAKER) (test 0 % dadb=778) NEUTROPHILS ABSOLUTE COUNT (BEAKER) (test 8.45 K/ L 1.78-5.38 jqob=999) LYMPHOCYTES ABSOLUTE COUNT (BEAKER) (test 0.94 K/ L 1.32-3.57 aaqu=947) MONOCYTES ABSOLUTE COUNT (BEAKER) (test 0.67 K/ L 0.30-0.82 iklq=777) EOSINOPHILS ABSOLUTE COUNT (BEAKER) (test 0.11 K/ L 0.04-0.54 wvrf=050) BASOPHILS ABSOLUTE COUNT (BEAKER) (test 0.01 K/ L 0.01-0.08 knqj=522) IMMATURE GRANULOCYTES-RELATIVE PERCENT (BEAKER) 1 % 0-1 (test dzzb=7473) PROTHROMBIN TIME/[id number] 13:23:00 Test Item Value Reference Range Comments PROTIME (BEAKER) (test urys=003) 18.8 seconds 11.9-14.2 INR (BEAKER) (test fhqd=360) 1.6 <=5.9 Effective 10/12/2018: PT Reference Range ChangeNew: 11.9-14.2 Previous: 11.7- 14.7RECOMMENDED COUMADIN/WARFARIN INR THERAPY RANGESSTANDARD DOSE: 2.0-3.0 Includes: PROPHYLAXIS for venous thrombosis, systemic embolization; TREATMENT for venous thrombosis and/or pulmonary embolus.HIGH RISK: Target INR is2.5-3.5 for patients wiht mechanical heart valves.[id number] 13:23:00 Test Item Value Reference Range Comments FIBRINOGEN LEVEL (BEAKER) (test sbkq=187) 286 mg/dl 225-434 BLOOD GAS, [id number] 13:12:00 Test Item Value Reference Range Comments PH ARTERIAL (BEAKER) (test ycxk=023) 7.36 7.35-7.45 PCO2 ARTERIAL (BEAKER) (test yggb=061) 36 mmHg 35-45 PO2 ARTERIAL (BEAKER) (test lbcc=651) 155 mmHg 80-90 O2 SATURATION ARTERIAL (BEAKER) (test yaak=546) 99.0 % 96.0-97.0 HCO3 ARTERIAL (BEAKER) (test isru=660) 20 mmol/L 21-29 BASE EXCESS ARTERIAL (BEAKER) (test okhk=974) -5.0 mmol/L -2.0-3.0 PATIENT TEMPERATURE (BEAKER) (test ixcj=2606) 35.9 C FIO2 (BEAKER) (test kbuo=9645) 60.0 % CALCIUM, [id number] 13:12:00 Test Item Value Reference Range Comments CALCIUM IONIZED (BEAKER) (test jiap=489) 1.11 mmol/L 1.12-1.27 PH, BLOOD (BEAKER) (test bpde=6507) 7.34 OXYGEN SATURATION, [id number] 13:09:00 Test Item Value Reference Range Comments O2 SATURATION (MEASURED) (BEAKER) (test ygna=3640) 75.1 % [id number] 12:17:00 Test Item Value Reference Range Comments ACTIVATED CLOTTING TIME 103 sec Reference Range: 74-137 (BEAKER) (test dcrw=057) seconds, Baseline/TESTED AT [place] [address] [id number] 12:17:00 Test Item Value Reference Range Comments ACTIVATED CLOTTING TIME 461 sec Reference Range: 74-137 (BEAKER) (test hbjr=763) seconds, Baseline/TESTED AT [place] [address] [id number] 12:17:00 Test Item Value Reference Range Comments ACTIVATED CLOTTING TIME 411 sec Reference Range: 74-137 (BEAKER) (test zjmh=805) seconds, Baseline/TESTED AT [place] [address] [id number] 12:17:00 Test Item Value Reference Range Comments ACTIVATED CLOTTING TIME 439 sec Reference Range: 74-137 (BEAKER) (test rgew=438) seconds, Baseline/TESTED AT [place] [address] [id number] 12:17:00 Test Item Value Reference Range Comments ACTIVATED CLOTTING TIME 373 sec Reference Range: 74-137 (BEAKER) (test poix=015) seconds, Baseline/TESTED AT [place] [address] [id number] 12:17:00 Test Item Value Reference Range Comments ACTIVATED CLOTTING TIME 114 sec Reference Range: 74-137 (BEAKER) (test gocv=816) seconds, Baseline/TESTED AT [facility] [address] [place] [address] CALCIUM, [id number] 12:02:00 Test Item Value Reference Range Comments CALCIUM IONIZED (BEAKER) (test owpm=824) 1.10 mmol/L 1.12-1.27 PH, BLOOD (BEAKER) (test wnxc=1721) 7.36 BLOOD GAS, [id number] 11:48:00 Test Item Value Reference Range Comments PH ARTERIAL (BEAKER) (test vgoe=779) 7.37 7.35-7.45 PCO2 ARTERIAL (BEAKER) (test zcla=556) 37 mmHg 35-45 PO2 ARTERIAL (BEAKER) (test fpnw=963) 97 mmHg 80-90 O2 SATURATION ARTERIAL (BEAKER) (test wytt=464) 97.5 % 96.0-97.0 HCO3 ARTERIAL (BEAKER) (test mspc=124) 21 mmol/L 21-29 BASE EXCESS ARTERIAL (BEAKER) (test conr=186) -4.0 mmol/L -2.0-3.0 PATIENT TEMPERATURE (BEAKER) (test znmn=3380) 35.9 C FIO2 (BEAKER) (test hbki=5237) 57.0 % GLUCOSE-STAT [id number] 11:48:00 Test Item Value Reference Range Comments GLUCOSE RANDOM (BEAKER) (test cuqh=474) 165 mg/dL 70-110 HGB/HCT (H&H) - STAT [id number] 11:48:00 Test Item Value Reference Range Comments HEMOGLOBIN (BEAKER) (test vlet=187) 10.7 g/dL 13.0-16.8 HEMATOCRIT (BEAKER) (test yhqg=625) 31.0 % 40.0-50.0 SODIUM NA-STAT [id number] 11:47:00 Test Item Value Reference Range Comments SODIUM (BEAKER) (test uhyy=342) 135 meq/L 135-148 POTASSIUM-STAT [id number] 11:47:00 Test Item Value Reference Range Comments POTASSIUM (BEAKER) (test bsfu=331) 4.3 meq/L 3.6-5.5 BLOOD GAS, [id number] 10:43:00 Test Item Value Reference Range Comments PH ARTERIAL (BEAKER) (test yldg=445) 7.34 7.35-7.45 PCO2 ARTERIAL (BEAKER) (test ftxp=185) 48 mmHg 35-45 PO2 ARTERIAL (BEAKER) (test ngwq=678) 308 mmHg 80-90 O2 SATURATION ARTERIAL (BEAKER) (test kqam=608) 99.7 % 96.0-97.0 HCO3 ARTERIAL (BEAKER) (test qfkt=961) 26 mmol/L 21-29 BASE EXCESS ARTERIAL (BEAKER) (test hybc=566) -0.9 mmol/L -2.0-3.0 PATIENT TEMPERATURE (BEAKER) (test ongo=4161) 34.2 C FIO2 (BEAKER) (test ihfk=2200) 70.0 % SODIUM NA-STAT [id number] 10:43:00 Test Item Value Reference Range Comments SODIUM (BEAKER) (test dflf=947) 134 meq/L 135-148 GLUCOSE-STAT [id number] 10:43:00 Test Item Value Reference Range Comments GLUCOSE RANDOM (BEAKER) (test ezei=208) 162 mg/dL 70-110 HGB/HCT (H&H) - STAT [id number] 10:43:00 Test Item Value Reference Range Comments HEMOGLOBIN (BEAKER) (test zjks=599) 10.1 g/dL 13.0-16.8 HEMATOCRIT (BEAKER) (test cwrf=936) 30.0 % 40.0-50.0 POTASSIUM-STAT [id number] 10:42:00 Test Item Value Reference Range Comments POTASSIUM (BEAKER) (test vmbd=478) 5.0 meq/L 3.6-5.5 BLOOD GAS, [id number] 10:22:00 Test Item Value Reference Range Comments PH ARTERIAL (BEAKER) (test grnn=535) 7.36 7.35-7.45 PCO2 ARTERIAL (BEAKER) (test avws=444) 34 mmHg 35-45 PO2 ARTERIAL (BEAKER) (test qtrq=102) 405 mmHg 80-90 O2 SATURATION ARTERIAL (BEAKER) (test hoee=777) 99.8 % 96.0-97.0 HCO3 ARTERIAL (BEAKER) (test xben=638) 20 mmol/L 21-29 BASE EXCESS ARTERIAL (BEAKER) (test hsbn=814) -6.2 mmol/L -2.0-3.0 PATIENT TEMPERATURE (BEAKER) (test wnms=0486) 32.6 C FIO2 (BEAKER) (test jpqg=9059) 80.0 % SODIUM NA-STAT [id number] 10:22:00 Test Item Value Reference Range Comments SODIUM (BEAKER) (test nnkt=302) 126 meq/L 135-148 POTASSIUM-STAT [id number] 10:22:00 Test Item Value Reference Range Comments POTASSIUM (BEAKER) (test vinq=580) 5.7 meq/L 3.6-5.5 GLUCOSE-STAT [id number] 10:22:00 Test Item Value Reference Range Comments GLUCOSE RANDOM (BEAKER) (test kiyl=351) 191 mg/dL 70-110 HGB/HCT (H&H) - STAT [id number] 10:22:00 Test Item Value Reference Range Comments HEMOGLOBIN (BEAKER) (test wpyn=134) 10.1 g/dL 13.0-16.8 HEMATOCRIT (BEAKER) (test zamx=479) 30.0 % 40.0-50.0 GLUCOSE-STAT [id number] 09:50:00 Test Item Value Reference Range Comments GLUCOSE RANDOM (BEAKER) (test ytdr=911) 139 mg/dL 70-110 SODIUM NA-STAT [id number] 09:50:00 Test Item Value Reference Range Comments SODIUM (BEAKER) (test xqty=283) 131 meq/L 135-148 HGB/HCT (H&H) - STAT [id number] 09:50:00 Test Item Value Reference Range Comments HEMOGLOBIN (BEAKER) (test vfzh=058) 13.3 g/dL 13.0-16.8 HEMATOCRIT (BEAKER) (test vtse=405) 39.0 % 40.0-50.0 CALCIUM, [id number] 09:49:00 Test Item Value Reference Range Comments CALCIUM IONIZED (BEAKER) (test msyz=025) 1.18 mmol/L 1.12-1.27 PH, BLOOD (BEAKER) (test sptg=2016) 7.32 BLOOD GAS, [id number] 09:49:00 Test Item Value Reference Range Comments PH ARTERIAL (BEAKER) (test ckcq=168) 7.34 7.35-7.45 PCO2 ARTERIAL (BEAKER) (test bcjd=290) 39 mmHg 35-45 PO2 ARTERIAL (BEAKER) (test ajpa=715) 221 mmHg 80-90 O2 SATURATION ARTERIAL (BEAKER) (test ssqr=992) 99.4 % 96.0-97.0 HCO3 ARTERIAL (BEAKER) (test dvma=843) 21 mmol/L 21-29 BASE EXCESS ARTERIAL (BEAKER) (test uvvn=281) -4.9 mmol/L -2.0-3.0 PATIENT TEMPERATURE (BEAKER) (test ccgp=1857) 35.5 C FIO2 (BEAKER) (test ejth=3986) 51.0 % POTASSIUM-STAT [id number] 09:48:00 Test Item Value Reference Range Comments POTASSIUM (BEAKER) (test dwkf=514) 4.9 meq/L 3.6-5.5 PLATELET AGGREGATION: FUNCTION [id number] 09:44:00 Test Item Value Reference Range Comments [id number] (BEAKER) Ashlie Shoemaker MD (test ixuf=4177) (electronic signature) PLATELET COUNT AGG (BEAKER) 252 K/CU MM 150-450 (test mtim=7747) PLATELET RICH PLASMA(BEAKER) 255 k/cu mm 200-300 (test rgge=9434) PLATELET FUNCTION SCREEN Decreased aggregation with INTERPRETATION (BEAKER) (test ADP which indicates platelet nveb=2858) dysfunction that may be due to medication effect, uremia, or other platelet function disorders. Clinical correlation is required. Platelet Function Screen results may be falsely low with platelet counts<75, 000/cu mm.BLOOD GAS, [id number] 08:35:00 Test Item Value Reference Range Comments PH ARTERIAL (BEAKER) (test izyj=698) 7.35 7.35-7.45 PCO2 ARTERIAL (BEAKER) (test zjrr=438) 42 mmHg 35-45 PO2 ARTERIAL (BEAKER) (test kpqz=136) 249 mmHg 80-90 O2 SATURATION ARTERIAL (BEAKER) (test fuqn=592) 99.5 % 96.0-97.0 HCO3 ARTERIAL (BEAKER) (test igju=315) 23 mmol/L 21-29 BASE EXCESS ARTERIAL (BEAKER) (test vyqz=525) -3.1 mmol/L -2.0-3.0 PATIENT TEMPERATURE (BEAKER) (test wjsk=2318) 36.2 C FIO2 (BEAKER) (test vrkw=7052) 100.0 % SODIUM NA-STAT [id number] 08:35:00 Test Item Value Reference Range Comments SODIUM (BEAKER) (test copz=895) 131 meq/L 135-148 GLUCOSE-STAT [id number] 08:35:00 Test Item Value Reference Range Comments GLUCOSE RANDOM (BEAKER) (test tgcx=049) 112 mg/dL 70-110 CALCIUM, [id number] 08:34:00 Test Item Value Reference Range Comments CALCIUM IONIZED (BEAKER) (test ahhi=474) 1.19 mmol/L 1.12-1.27 PH, BLOOD (BEAKER) (test bmrj=6412) 7.33 POTASSIUM-STAT [id number] 08:33:00 Test Item Value Reference Range Comments POTASSIUM (BEAKER) (test tbhy=593) 4.2 meq/L 3.6-5.5 HGB/HCT (H&H) - STAT [id number] 08:33:00 Test Item Value Reference Range Comments HEMOGLOBIN (BEAKER) (test enen=481) 13.5 g/dL 13.0-16.8 HEMATOCRIT (BEAKER) (test giey=358) 40.0 % 40.0-50.0 CALCIUM, [id number] 05:20:00 Test Item Value Reference Range Comments CALCIUM IONIZED (BEAKER) (test bfvh=374) 1.20 mmol/L 1.12-1.27 PH, BLOOD (BEAKER) (test asnl=6760) 7.44 BASIC METABOLIC [id number] 05:16:00 Test Item Value Reference Range Comments SODIUM (BEAKER) (test 132 meq/L 136-145 ftcj=516) POTASSIUM (BEAKER) (test 4.3 meq/L 3.5-5.1 zfzn=596) CHLORIDE (BEAKER) (test 105 meq/L 98-107 gqcr=556) CO2 (BEAKER) (test 20 meq/L 22-29 rkbz=834) BLOOD UREA NITROGEN 29 mg/dL 7-21 (BEAKER) (test dwig=782) CREATININE (BEAKER) (test 2.41 mg/dL 0.57-1.25 bnjv=413) GLUCOSE RANDOM (BEAKER) 103 mg/dL 70-105 (test qglp=935) CALCIUM (BEAKER) (test 9.1 mg/dL 8.4-10.2 qdhh=545) EGFR (BEAKER) (test 27 mL/min/1.73 sq m ESTIMATED GFR IS NOT jisd=0224) ACCURATE CREATININE CLEARANCE IN PREDICTING GLOMERULAR FILTRATION RATE. ESTIMATED GFR IS NOT APPLICABLE FOR DIALYSIS PATIENTS. URIC [id number] 05:15:00 Test Item Value Reference Range Comments URIC ACID (BEAKER) (test hiuw=890) 8.3 mg/dL 2.6-7.2 [id number] 05:15:00 Test Item Value Reference Range Comments MAGNESIUM (BEAKER) (test tejr=850) 1.9 mg/dL 1.6-2.6 [id number] 05:15:00 Test Item Value Reference Range Comments PHOSPHORUS (BEAKER) (test jhke=174) 3.7 mg/dL 2.3-4.7 PTH, [id number] 05:06:00 Test Item Value Reference Range Comments PARATHYROID HORMONE INTACT (BEAKER) (test 64.0 pg/mL 8.5-72.5 hhej=215) CBC W/PLT COUNT & AUTO [id number] 04:46:00 Test Item Value Reference Range Comments WHITE BLOOD CELL COUNT (BEAKER) (test jcli=736) 5.4 K/ L 3.5-10.5 RED BLOOD CELL COUNT (BEAKER) (test inoz=956) 4.43 M/ L 4.63-6.08 HEMOGLOBIN (BEAKER) (test iqtm=713) 13.0 GM/DL 13.7-17.5 HEMATOCRIT (BEAKER) (test fipe=822) 39.3 % 40.1-51.0 MEAN CORPUSCULAR VOLUME (BEAKER) (test jqau=601) 88.7 fL 79.0-92.2 MEAN CORPUSCULAR HEMOGLOBIN (BEAKER) (test 29.3 pg 25.7-32.2 yvyb=674) MEAN CORPUSCULAR HEMOGLOBIN CONC (BEAKER) (test 33.1 GM/DL 32.3-36.5 nlto=580) RED CELL DISTRIBUTION WIDTH (BEAKER) (test 13.9 % 11.6-14.4 lsib=142) PLATELET COUNT (BEAKER) (test ggav=659) 247 K/CU MM 150-450 MEAN PLATELET VOLUME (BEAKER) (test ywgb=066) 9.5 fL 9.4-12.4 NUCLEATED RED BLOOD CELLS (BEAKER) (test 0 /100 WBC 0-0 lftf=891) NEUTROPHILS RELATIVE PERCENT (BEAKER) (test 59 % vgmm=896) LYMPHOCYTES RELATIVE PERCENT (BEAKER) (test 24 % ycse=107) MONOCYTES RELATIVE PERCENT (BEAKER) (test 11 % avoq=319) EOSINOPHILS RELATIVE PERCENT (BEAKER) (test 5 % ierd=162) BASOPHILS RELATIVE PERCENT (BEAKER) (test 1 % dtbx=304) NEUTROPHILS ABSOLUTE COUNT (BEAKER) (test 3.21 K/ L 1.78-5.38 oxgm=294) LYMPHOCYTES ABSOLUTE COUNT (BEAKER) (test 1.30 K/ L 1.32-3.57 ogvk=657) MONOCYTES ABSOLUTE COUNT (BEAKER) (test 0.59 K/ L 0.30-0.82 djch=311) EOSINOPHILS ABSOLUTE COUNT (BEAKER) (test 0.27 K/ L 0.04-0.54 nifh=802) BASOPHILS ABSOLUTE COUNT (BEAKER) (test 0.03 K/ L 0.01-0.08 bbfo=206) IMMATURE GRANULOCYTES-RELATIVE PERCENT (BEAKER) 0 % 0-1 (test aiom=0632) [id number] 21:48:00 Test Item Value Reference Range Comments PARTIAL THROMBOPLASTIN TIME (BEAKER) (test 63.1 seconds 22.5-36.0 cqka=071) PROTHROMBIN [id number] 21:47:00 Test Item Value Reference Range Comments PROTIME (BEAKER) (test vxew=582) 15.2 seconds 11.9-14.2 INR (BEAKER) (test jcwy=966) 1.2 <=5.9 Effective 10/12/2018: PT Reference Range ChangeNew: 11.9-14.2 Previous: 11.7- 14.7RECOMMENDED COUMADIN/WARFARIN INR THERAPY RANGESSTANDARD DOSE: 2.0-3.0 Includes: PROPHYLAXIS for venous thrombosis, systemic embolization; TREATMENT for venous thrombosis and/or pulmonary embolus.HIGH RISK: Target INR is2.5-3.5 for patients wiht mechanical heart valves.CREATININE, RANDOM [id number] 19: 14:00 Test Item Value Reference Range Comments CREATININE URINE (BEAKER) (test maec=593) 119.9 mg/dL Reference Range: No NormalsPROTEIN, RANDOM [id number] 19:14:00 Test Item Value Reference Range Comments PROTEIN, URINE (BEAKER) (test porc=8008) 37 mg/dL 0-14 PLATELET AGGREGATION: FUNCTION [id number] 19:04:00 Test Item Value Reference Range Comments [id number] (BEAKER) Ashlie Shoemaker MD (test xasr=5612) (electronic signature) PLATELET COUNT AGG (BEAKER) 251 K/CU MM 150-450 (test mryv=5197) PLATELET RICH PLASMA(BEAKER) 243 k/cu mm 200-300 (test sapa=3650) PLATELET FUNCTION SCREEN Decreased aggregation with INTERPRETATION (BEAKER) (test ADP which indicates platelet gxoo=6753) dysfunction that may be due to medication effect, uremia, or other platelet function disorders. Clinical correlation is required. Platelet Function Screen results may be falsely low with platelet counts<75, 000/cu mm.PLATELET AGGREGATION: FUNCTION [id number] 19:03:00 Test Item Value Reference Range Comments [id number] (BEAKER) Ashlie Shoemaker MD (test wlfm=7082) (electronic signature) PLATELET COUNT AGG (BEAKER) 283 K/CU MM 150-450 (test deqr=6699) PLATELET RICH PLASMA(BEAKER) 294 k/cu mm 200-300 (test isaz=1404) PLATELET FUNCTION SCREEN Decreased aggregation with INTERPRETATION (BEAKER) (test ADP which indicates platelet ouho=3792) dysfunction that may be due to medication effect, uremia, or other platelet function disorders. Clinical correlation is required. Platelet Function Screen results may be falsely low with platelet counts<75, 000/cu mm.U/S, RENAL WITH [id number] 17:06:00Reason for exam:->ckd with doppler-attn size and echogenicity Should this be performed at the bedside? ->NoFINAL REPORT Renal ultrasound and Duplex Doppler ultrasound of kidneys dated 05/24/2019 Comment: Real-time transabdominal renal ultrasound was performed.Right kidney measures 10.7x 5.4 x 4.7 cm. Left kidney measures 6.7 x 3.3 x 3.6 cm. Right renal cortex measures 0.8 cm. Left renal cortex measures 0.6 cm. Echogenicity of both renal parenchyma is increased. No hydronephrosis, solid or cystic mass seen. The urinary bladder measures 94 cc. Color Doppler and spectral ultrasound demonstrates patent main renal artery and vein bilaterally. The resistive indices of the right upper, middle, and inferior intralobar arteries are 0.7, 0.8, and 0.8 respectively. It is technically difficult to optimally Doppler of the left kidney. Impression: 1. Echogenic kidneys suggestive of medical renal disease with small atrophic left kidney.2. Unable to obtain Doppler of the left kidney andincreased resistive indicis of the right kidney. Signed: Lilliana Martinez Verified Date/Time: 05/24/2019 17:06:43 Reading Location: [address] Radiology Reading Room 05: 06 [id number] 15:00:00 Test Item Value Reference Range Comments PARTIAL THROMBOPLASTIN TIME (BEAKER) (test 66.3 seconds 22.5-36.0 giqy=749) RAD, CHEST, 1 VIEW, NON [id number] 10:47:00Reason for exam:->sobShould this be performed at the bedside?->YesFINAL REPORT INDICATION: sob COMPARISON: September 01, 2003 TECHNIQUE: Single frontal view of the chest. FINDINGS: Lungs and pleura: Clear lungs. No effusion.Heart and mediastinum: Normal heart size. Unremarkable mediastinal contours.Osseous structures: No acute abnormality.Other: None. IMPRESSION: No acute intrathoracic abnormality. Signed: Marcella Burdick Verified Date/Time: 05/24/2019 10:47:42 Reading Location: [facility] Radiology Reading Room BASIC METABOLIC [id number] 07:45:00 Test Item Value Reference Range Comments SODIUM (BEAKER) (test 134 meq/L 136-145 duxd=362) POTASSIUM (BEAKER) (test 4.9 meq/L 3.5-5.1 iawz=549) CHLORIDE (BEAKER) (test 105 meq/L 98-107 yhyj=776) CO2 (BEAKER) (test 22 meq/L 22-29 segn=375) BLOOD UREA NITROGEN 28 mg/dL 7-21 (BEAKER) (test jwih=618) CREATININE (BEAKER) (test 2.34 mg/dL 0.57-1.25 liwa=347) GLUCOSE RANDOM (BEAKER) 100 mg/dL 70-105 (test yrpz=070) CALCIUM (BEAKER) (test 9.3 mg/dL 8.4-10.2 lqma=390) EGFR (BEAKER) (test 28 mL/min/1.73 sq m ESTIMATED GFR IS NOT alqg=5838) ACCURATE CREATININE CLEARANCE IN PREDICTING GLOMERULAR FILTRATION RATE. ESTIMATED GFR IS NOT APPLICABLE FOR DIALYSIS PATIENTS. HEPATIC FUNCTION [id number] 07:06:00 Test Item Value Reference Range Comments TOTAL PROTEIN (BEAKER) (test pwic=445) 7.2 gm/dL 6.0-8.3 ALBUMIN (BEAKER) (test sqpz=2916) 3.8 g/dL 3.5-5.0 BILIRUBIN TOTAL (BEAKER) (test jaae=836) 0.7 mg/dL 0.2-1.2 BILIRUBIN DIRECT (BEAKER) (test kbxu=732) 0.4 mg/dL 0.1-0.5 ALKALINE PHOSPHATASE (BEAKER) (test jrnz=453) 16 U/L 40-150 AST (SGOT) (BEAKER) (test haxj=185) 18 U/L 5-34 ALT (SGPT) (BEAKER) (test nmcf=679) 16 U/L 6-55 [id number] 07:01:00 Test Item Value Reference Range Comments PHOSPHORUS (BEAKER) (test eaqw=189) 3.9 mg/dL 2.3-4.7 [id number] 07:01:00 Test Item Value Reference Range Comments MAGNESIUM (BEAKER) (test wsoo=051) 1.8 mg/dL 1.6-2.6 LACTIC ACID, [id number] 06:33:00 Test Item Value Reference Range Comments LACTATE BLOOD ARTERIAL (2) (BEAKER) (test 1.2 mmol/L 0.5-2.2 ahed=9169) [id number] 06:29:00 Test Item Value Reference Range Comments PARTIAL THROMBOPLASTIN TIME (BEAKER) (test 52.7 seconds 22.5-36.0 gflj=148) CBC W/PLT COUNT & AUTO [id number] 06:24:00 Test Item Value Reference Range Comments WHITE BLOOD CELL COUNT (BEAKER) (test sywq=870) 6.0 K/ L 3.5-10.5 RED BLOOD CELL COUNT (BEAKER) (test qyei=795) 4.96 M/ L 4.63-6.08 HEMOGLOBIN (BEAKER) (test dbkp=887) 14.8 GM/DL 13.7-17.5 HEMATOCRIT (BEAKER) (test dnnq=753) 44.7 % 40.1-51.0 MEAN CORPUSCULAR VOLUME (BEAKER) (test wudt=647) 90.1 fL 79.0-92.2 MEAN CORPUSCULAR HEMOGLOBIN (BEAKER) (test 29.8 pg 25.7-32.2 wgop=383) MEAN CORPUSCULAR HEMOGLOBIN CONC (BEAKER) (test 33.1 GM/DL 32.3-36.5 stjt=788) RED CELL DISTRIBUTION WIDTH (BEAKER) (test 13.9 % 11.6-14.4 dqzb=011) PLATELET COUNT (BEAKER) (test mfyt=651) 248 K/CU MM 150-450 MEAN PLATELET VOLUME (BEAKER) (test ycbe=298) 10.0 fL 9.4-12.4 NUCLEATED RED BLOOD CELLS (BEAKER) (test 0 /100 WBC 0-0 wwnr=007) NEUTROPHILS RELATIVE PERCENT (BEAKER) (test 59 % blhx=327) LYMPHOCYTES RELATIVE PERCENT (BEAKER) (test 25 % edhp=911) MONOCYTES RELATIVE PERCENT (BEAKER) (test 11 % zgdn=202) EOSINOPHILS RELATIVE PERCENT (BEAKER) (test 4 % ovhu=854) BASOPHILS RELATIVE PERCENT (BEAKER) (test 1 % ccps=301) NEUTROPHILS ABSOLUTE COUNT (BEAKER) (test 3.55 K/ L 1.78-5.38 aazt=854) LYMPHOCYTES ABSOLUTE COUNT (BEAKER) (test 1.52 K/ L 1.32-3.57 ewns=724) MONOCYTES ABSOLUTE COUNT (BEAKER) (test 0.63 K/ L 0.30-0.82 wvfd=429) EOSINOPHILS ABSOLUTE COUNT (BEAKER) (test 0.23 K/ L 0.04-0.54 qipg=581) BASOPHILS ABSOLUTE COUNT (BEAKER) (test 0.04 K/ L 0.01-0.08 dema=083) IMMATURE GRANULOCYTES-RELATIVE PERCENT (BEAKER) 0 % 0-1 (test gtnc=6791) CALCIUM, [id number] 06:17:00 Test Item Value Reference Range Comments CALCIUM IONIZED (BEAKER) (test kxjl=914) 1.23 mmol/L 1.12-1.27 PH, BLOOD (BEAKER) (test uemv=4826) 7.40 [id number] 00:32:00 Test Item Value Reference Range Comments PARTIAL THROMBOPLASTIN TIME (BEAKER) (test 42.1 seconds 22.5-36.0 mpit=758) HEMOGLOBIN [id number] 17:23:00 Test Item Value Reference Range Comments HEMOGLOBIN A1C (BEAKER) (test hghl=906) 5.7 % 4.3-6.1 THROMBOELASTOGRAPH (TEG)2019-05-23 16:08:00 Test Item Value Reference Range Comments TEG ACTIVATED CLOTTING TIME (BEAKER) (test 3.9 minutes 4.0-7.0 ltvl=6975) TEG FIBRINOGEN ACTIVITY (BEAKER) (test 71.9 degrees 61.0-73.0 pwmp=5229) TEG PLT. AGGREGATION (BEAKER) (test mbzv=8355) 69.9 MM 55.0-65.0 TEG FIBRINOLYSIS (BEAKER) (test geru=9488) 0.0 % 0.0-5.0 TGH ACTIVATED CLOTTING TIME (BEAKER) (test 4.3 minutes 4.0-7.0 nmdc=3349) TGH FIBRINOGEN ACTIVITY (BEAKER) (test 72.2 degrees 61.0-73.0 juiq=2547) TGH PLT. AGGREGATION (BEAKER) (test vlfb=0587) 73.4 MM 55.0-65.0 TGH FIBRINOLYSIS (BEAKER) (test mhjb=3091) 1.7 % 0.0-5.0 TSH/FREE T4 IF [id number] 15:55:00 Test Item Value Reference Range Comments THYROID STIMULATING HORMONE (BEAKER) (test 1.69 uIU/mL 0.35-4.94 qaao=513) B-TYPE NATRIURETIC FACTOR (BNP)2019-05-23 15:41:00 Test Item Value Reference Range Comments B-TYPE NATRIURETIC PEPTIDE (BEAKER) (test 1951 pg/mL 0-100 finn=307) [id number] 15:34:00 Test Item Value Reference Range Comments PHOSPHORUS (BEAKER) (test aore=907) 3.4 mg/dL 2.3-4.7 [id number] 15:34:00 Test Item Value Reference Range Comments MAGNESIUM (BEAKER) (test ujup=601) 1.9 mg/dL 1.6-2.6 BASIC METABOLIC [id number] 15:34:00 Test Item Value Reference Range Comments SODIUM (BEAKER) (test 133 meq/L 136-145 yoyv=212) POTASSIUM (BEAKER) (test 4.5 meq/L 3.5-5.1 fnkz=466) CHLORIDE (BEAKER) (test 104 meq/L 98-107 bvbd=344) CO2 (BEAKER) (test 18 meq/L 22-29 xdqr=926) BLOOD UREA NITROGEN 21 mg/dL 7-21 (BEAKER) (test mczz=310) CREATININE (BEAKER) (test 2.09 mg/dL 0.57-1.25 yvco=831) GLUCOSE RANDOM (BEAKER) 88 mg/dL 70-105 (test tprn=655) CALCIUM (BEAKER) (test 9.5 mg/dL 8.4-10.2 bgjz=836) EGFR (BEAKER) (test 31 mL/min/1.73 sq m ESTIMATED GFR IS NOT lpxl=8369) ACCURATE CREATININE CLEARANCE IN PREDICTING GLOMERULAR FILTRATION RATE. ESTIMATED GFR IS NOT APPLICABLE FOR DIALYSIS PATIENTS. HEPATIC FUNCTION [id number] 15:34:00 Test Item Value Reference Range Comments TOTAL PROTEIN (BEAKER) (test hukr=218) 7.2 gm/dL 6.0-8.3 ALBUMIN (BEAKER) (test oluh=0206) 3.8 g/dL 3.5-5.0 BILIRUBIN TOTAL (BEAKER) (test covv=272) 0.9 mg/dL 0.2-1.2 BILIRUBIN DIRECT (BEAKER) (test ncwz=712) 0.5 mg/dL 0.1-0.5 ALKALINE PHOSPHATASE (BEAKER) (test ryvm=752) 133 U/L 40-150 AST (SGOT) (BEAKER) (test mnxa=818) 18 U/L 5-34 ALT (SGPT) (BEAKER) (test zkvg=850) 16 U/L 6-55 [id number] 15:20:00 Test Item Value Reference Range Comments PARTIAL THROMBOPLASTIN TIME (BEAKER) (test 33.3 seconds 22.5-36.0 ilgp=665) PROTHROMBIN [id number] 15:19:00 Test Item Value Reference Range Comments PROTIME (BEAKER) (test gylb=396) 14.8 seconds 11.9-14.2 INR (BEAKER) (test hzrl=397) 1.2 <=5.9 Effective 10/12/2018: PT Reference Range ChangeNew: 11.9-14.2 Previous: 11.7- 14.7RECOMMENDED COUMADIN/WARFARIN INR THERAPY RANGESSTANDARD DOSE: 2.0-3.0 Includes: PROPHYLAXIS for venous thrombosis, systemic embolization; TREATMENT for venous thrombosis and/or pulmonary embolus.HIGH RISK: Target INR is2.5-3.5 for patients wiht mechanical heart valves.LACTIC ACID, [id number] 15:19: 00 Test Item Value Reference Range Comments LACTATE BLOOD ARTERIAL (2) 0.9 mmol/L 0.5-2.2 Specimen slightly hemolyzed (BEAKER) (test synu=0057) [id number] 15:19:00 Test Item Value Reference Range Comments FIBRINOGEN LEVEL (BEAKER) (test pxkg=757) 463 mg/dl 225-434 PLATELET [id number] 15:06:00 Test Item Value Reference Range Comments PLATELET COUNT (BEAKER) (test glwt=941) 281 K/CU MM 150-450 CBC W/PLT COUNT & AUTO [id number] 15:06:00 Test Item Value Reference Range Comments WHITE BLOOD CELL COUNT (BEAKER) (test fokx=003) 5.4 K/ L 3.5-10.5 RED BLOOD CELL COUNT (BEAKER) (test mzbh=769) 4.82 M/ L 4.63-6.08 HEMOGLOBIN (BEAKER) (test bddt=574) 14.3 GM/DL 13.7-17.5 HEMATOCRIT (BEAKER) (test ssod=464) 42.6 % 40.1-51.0 MEAN CORPUSCULAR VOLUME (BEAKER) (test xrwr=464) 88.4 fL 79.0-92.2 MEAN CORPUSCULAR HEMOGLOBIN (BEAKER) (test 29.7 pg 25.7-32.2 hhie=863) MEAN CORPUSCULAR HEMOGLOBIN CONC (BEAKER) (test 33.6 GM/DL 32.3-36.5 zpdd=450) RED CELL DISTRIBUTION WIDTH (BEAKER) (test 14.0 % 11.6-14.4 tmlf=864) PLATELET COUNT (BEAKER) (test lktj=833) 281 K/CU MM 150-450 MEAN PLATELET VOLUME (BEAKER) (test zsso=923) 9.8 fL 9.4-12.4 NUCLEATED RED BLOOD CELLS (BEAKER) (test 0 /100 WBC 0-0 nlul=044) NEUTROPHILS RELATIVE PERCENT (BEAKER) (test 67 % qrfq=757) LYMPHOCYTES RELATIVE PERCENT (BEAKER) (test 20 % lakz=860) MONOCYTES RELATIVE PERCENT (BEAKER) (test 10 % ogfm=284) EOSINOPHILS RELATIVE PERCENT (BEAKER) (test 2 % nqps=694) BASOPHILS RELATIVE PERCENT (BEAKER) (test 0 % xrei=800) NEUTROPHILS ABSOLUTE COUNT (BEAKER) (test 3.63 K/ L 1.78-5.38 btad=412) LYMPHOCYTES ABSOLUTE COUNT (BEAKER) (test 1.07 K/ L 1.32-3.57 juuy=173) MONOCYTES ABSOLUTE COUNT (BEAKER) (test 0.56 K/ L 0.30-0.82 xdxn=141) EOSINOPHILS ABSOLUTE COUNT (BEAKER) (test 0.13 K/ L 0.04-0.54 qauq=752) BASOPHILS ABSOLUTE COUNT (BEAKER) (test 0.02 K/ L 0.01-0.08 dalv=226) IMMATURE GRANULOCYTES-RELATIVE PERCENT (BEAKER) 0 % 0-1 (test vvel=1059) CALCIUM, [id number] 14:58:00 Test Item Value Reference Range Comments CALCIUM IONIZED (BEAKER) (test edee=526) 1.23 mmol/L 1.12-1.27 PH, BLOOD (BEAKER) (test axby=7051) 7.42 CBC (HEMOGRAM ONLY)2019-05-14 04:11:00 Test Item Value Reference Range Comments WHITE BLOOD CELL COUNT (BEAKER) (test duuk=621) 5.4 K/ L 3.5-10.5 RED BLOOD CELL COUNT (BEAKER) (test lcqk=819) 4.72 M/ L 4.63-6.08 HEMOGLOBIN (BEAKER) (test jmue=413) 13.9 GM/DL 13.7-17.5 HEMATOCRIT (BEAKER) (test davt=388) 41.7 % 40.1-51.0 MEAN CORPUSCULAR VOLUME (BEAKER) (test feib=908) 88.3 fL 79.0-92.2 MEAN CORPUSCULAR HEMOGLOBIN (BEAKER) (test 29.4 pg 25.7-32.2 hxrn=671) MEAN CORPUSCULAR HEMOGLOBIN CONC (BEAKER) (test 33.3 GM/DL 32.3-36.5 dwhl=828) RED CELL DISTRIBUTION WIDTH (BEAKER) (test 13.7 % 11.6-14.4 gipl=487) PLATELET COUNT (BEAKER) (test wyyh=621) 252 K/CU MM 150-450 MEAN PLATELET VOLUME (BEAKER) (test fffp=832) 9.9 fL 9.4-12.4 NUCLEATED RED BLOOD CELLS (BEAKER) (test 0 /100 WBC 0-0 chlo=412) [id number] 06:10:00 Test Item Value Reference Range Comments MAGNESIUM (BEAKER) (test depq=884) 2.0 mg/dL 1.6-2.6 BASIC METABOLIC [id number] 06:10:00 Test Item Value Reference Range Comments SODIUM (BEAKER) (test 134 meq/L 136-145 owpr=723) POTASSIUM (BEAKER) (test 4.4 meq/L 3.5-5.1 yzrz=824) CHLORIDE (BEAKER) (test 107 meq/L 98-107 kzeh=958) CO2 (BEAKER) (test 19 meq/L 22-29 sovv=601) BLOOD UREA NITROGEN 27 mg/dL 7-21 (BEAKER) (test ttsg=525) CREATININE (BEAKER) (test 1.94 mg/dL 0.57-1.25 hmke=794) GLUCOSE RANDOM (BEAKER) 94 mg/dL 70-105 (test yyje=713) CALCIUM (BEAKER) (test 9.2 mg/dL 8.4-10.2 ocef=458) EGFR (BEAKER) (test 34 mL/min/1.73 sq m ESTIMATED GFR IS NOT qzhi=6425) ACCURATE CREATININE CLEARANCE IN PREDICTING GLOMERULAR FILTRATION RATE. ESTIMATED GFR IS NOT APPLICABLE FOR DIALYSIS PATIENTS. CBC (HEMOGRAM ONLY)2019-05-13 05:22:00 Test Item Value Reference Range Comments WHITE BLOOD CELL COUNT (BEAKER) (test plcw=594) 5.2 K/ L 3.5-10.5 RED BLOOD CELL COUNT (BEAKER) (test sqky=834) 4.72 M/ L 4.63-6.08 HEMOGLOBIN (BEAKER) (test rmxp=543) 13.7 GM/DL 13.7-17.5 HEMATOCRIT (BEAKER) (test tbqs=289) 41.7 % 40.1-51.0 MEAN CORPUSCULAR VOLUME (BEAKER) (test hptg=090) 88.3 fL 79.0-92.2 MEAN CORPUSCULAR HEMOGLOBIN (BEAKER) (test 29.0 pg 25.7-32.2 aueb=284) MEAN CORPUSCULAR HEMOGLOBIN CONC (BEAKER) (test 32.9 GM/DL 32.3-36.5 kyip=449) RED CELL DISTRIBUTION WIDTH (BEAKER) (test 13.7 % 11.6-14.4 fdwg=442) PLATELET COUNT (BEAKER) (test tnlf=012) 239 K/CU MM 150-450 MEAN PLATELET VOLUME (BEAKER) (test azen=406) 9.7 fL 9.4-12.4 NUCLEATED RED BLOOD CELLS (BEAKER) (test 0 /100 WBC 0-0 llsh=863) [id number] 12:42:00 Test Item Value Reference Range Comments PARTIAL THROMBOPLASTIN TIME (BEAKER) (test 82.0 seconds 22.5-36.0 uydf=131) [id number] 05:57:00 Test Item Value Reference Range Comments MAGNESIUM (BEAKER) (test lckm=582) 2.2 mg/dL 1.6-2.6 BASIC METABOLIC [id number] 05:57:00 Test Item Value Reference Range Comments SODIUM (BEAKER) (test 136 meq/L 136-145 peiv=620) POTASSIUM (BEAKER) (test 4.4 meq/L 3.5-5.1 nmdb=052) CHLORIDE (BEAKER) (test 106 meq/L 98-107 avmg=595) CO2 (BEAKER) (test 20 meq/L 22-29 qxbc=750) BLOOD UREA NITROGEN 30 mg/dL 7-21 (BEAKER) (test hsfe=706) CREATININE (BEAKER) (test 2.13 mg/dL 0.57-1.25 kpbg=891) GLUCOSE RANDOM (BEAKER) 100 mg/dL 70-105 (test vqgg=293) CALCIUM (BEAKER) (test 8.9 mg/dL 8.4-10.2 xkbk=183) EGFR (BEAKER) (test 31 mL/min/1.73 sq m ESTIMATED GFR IS NOT juuy=6044) ACCURATE CREATININE CLEARANCE IN PREDICTING GLOMERULAR FILTRATION RATE. ESTIMATED GFR IS NOT APPLICABLE FOR DIALYSIS PATIENTS. [id number] 05:48:00 Test Item Value Reference Range Comments PARTIAL THROMBOPLASTIN TIME (BEAKER) (test 97.6 seconds 22.5-36.0 whxc=893) CBC (HEMOGRAM ONLY)2019-05-12 05:37:00 Test Item Value Reference Range Comments WHITE BLOOD CELL COUNT (BEAKER) (test aurl=171) 5.6 K/ L 3.5-10.5 RED BLOOD CELL COUNT (BEAKER) (test slpk=303) 4.46 M/ L 4.63-6.08 HEMOGLOBIN (BEAKER) (test exnv=573) 13.0 GM/DL 13.7-17.5 HEMATOCRIT (BEAKER) (test hdzm=113) 40.0 % 40.1-51.0 MEAN CORPUSCULAR VOLUME (BEAKER) (test rymt=928) 89.7 fL 79.0-92.2 MEAN CORPUSCULAR HEMOGLOBIN (BEAKER) (test 29.1 pg 25.7-32.2 biyd=695) MEAN CORPUSCULAR HEMOGLOBIN CONC (BEAKER) (test 32.5 GM/DL 32.3-36.5 mxlv=114) RED CELL DISTRIBUTION WIDTH (BEAKER) (test 13.9 % 11.6-14.4 nvga=908) PLATELET COUNT (BEAKER) (test tzvf=152) 246 K/CU MM 150-450 MEAN PLATELET VOLUME (BEAKER) (test wyow=951) 9.9 fL 9.4-12.4 NUCLEATED RED BLOOD CELLS (BEAKER) (test 0 /100 WBC 0-0 mpso=194) [id number] 21:34:00 Test Item Value Reference Range Comments PARTIAL THROMBOPLASTIN TIME (BEAKER) (test 54.7 seconds 22.5-36.0 hiob=118) [id number] 12:22:00 Test Item Value Reference Range Comments PARTIAL THROMBOPLASTIN TIME (BEAKER) (test 62.7 seconds 22.5-36.0 zayj=095) TROPONIN [id number] 09:48:00 Test Item Value Reference Range Comments TROPONIN I (BEAKER) (test trgd=070) 0.79 ng/mL 0.00-0.03 Troponin I (TnI) levels [...] acidosis, acute neurological disease, and persistent tachyarrhythmia.TROPONIN [id number] 05:58:00 Test Item Value Reference Range Comments TROPONIN I (BEAKER) (test dwxm=012) 0.88 ng/mL 0.00-0.03 Troponin I (TnI) levels [...] acute neurological disease, and persistent tachyarrhythmia.BASIC METABOLIC [id number] 05:57:00 Test Item Value Reference Range Comments SODIUM (BEAKER) (test 138 meq/L 136-145 ktvu=577) POTASSIUM (BEAKER) (test 4.6 meq/L 3.5-5.1 Specimen slightly pktl=924) hemolyzed CHLORIDE (BEAKER) (test 106 meq/L 98-107 pgqu=051) CO2 (BEAKER) (test 21 meq/L 22-29 alni=142) BLOOD UREA NITROGEN 34 mg/dL 7-21 (BEAKER) (test fwag=920) CREATININE (BEAKER) (test 2.55 mg/dL 0.57-1.25 Specimen slightly jbsi=953) hemolyzed GLUCOSE RANDOM (BEAKER) 99 mg/dL 70-105 (test dtgq=818) CALCIUM (BEAKER) (test 8.7 mg/dL 8.4-10.2 vgel=358) EGFR (BEAKER) (test 25 mL/min/1.73 sq m ESTIMATED GFR IS NOT frij=5601) ACCURATE CREATININE CLEARANCE IN PREDICTING GLOMERULAR FILTRATION RATE. ESTIMATED GFR IS NOT APPLICABLE FOR DIALYSIS PATIENTS. [id number] 05:51:00 Test Item Value Reference Range Comments MAGNESIUM (BEAKER) (test 2.7 mg/dL 1.6-2.6 Specimen slightly hemolyzed jndb=879) [id number] 05:43:00 Test Item Value Reference Range Comments PARTIAL THROMBOPLASTIN TIME (BEAKER) (test 95.4 seconds 22.5-36.0 jkby=300) CBC (HEMOGRAM ONLY)2019-05-11 05:28:00 Test Item Value Reference Range Comments WHITE BLOOD CELL COUNT (BEAKER) (test oyic=562) 5.1 K/ L 3.5-10.5 RED BLOOD CELL COUNT (BEAKER) (test ktov=395) 4.14 M/ L 4.63-6.08 HEMOGLOBIN (BEAKER) (test mupg=989) 12.2 GM/DL 13.7-17.5 HEMATOCRIT (BEAKER) (test pqxr=700) 37.7 % 40.1-51.0 MEAN CORPUSCULAR VOLUME (BEAKER) (test vzjf=590) 91.1 fL 79.0-92.2 MEAN CORPUSCULAR HEMOGLOBIN (BEAKER) (test 29.5 pg 25.7-32.2 qifm=119) MEAN CORPUSCULAR HEMOGLOBIN CONC (BEAKER) (test 32.4 GM/DL 32.3-36.5 ngvl=850) RED CELL DISTRIBUTION WIDTH (BEAKER) (test 14.2 % 11.6-14.4 yajp=411) PLATELET COUNT (BEAKER) (test ncde=525) 227 K/CU MM 150-450 MEAN PLATELET VOLUME (BEAKER) (test hxmr=107) 10.0 fL 9.4-12.4 NUCLEATED RED BLOOD CELLS (BEAKER) (test 0 /100 WBC 0-0 pvpg=895) TROPONIN [id number] 21:33:00 Test Item Value Reference Range Comments TROPONIN I (BEAKER) (test yokx=984) 0.81 ng/mL 0.00-0.03 Troponin I (TnI) levels [...] NATRIURETIC PEPTIDE (BEAKER) (test 1922 pg/mL 0-100 yupd=604) [id number] 21:21:00 Test Item Value Reference Range Comments MAGNESIUM (BEAKER) (test xbqq=303) 2.0 mg/dL 1.6-2.6 CREATINE KINASE (CK)2019-05-10 21:21:00 Test Item Value Reference Range Comments CREATINE KINASE TOTAL (BEAKER) (test ldyq=347) 58 U/L 29-200 BASIC METABOLIC [id number] 21:21:00 Test Item Value Reference Range Comments SODIUM (BEAKER) (test 136 meq/L 136-145 fsrn=222) POTASSIUM (BEAKER) (test 4.5 meq/L 3.5-5.1 ibzm=421) CHLORIDE (BEAKER) (test 109 meq/L 98-107 urvr=783) CO2 (BEAKER) (test 18 meq/L 22-29 zfrw=887) BLOOD UREA NITROGEN 30 mg/dL 7-21 (BEAKER) (test cith=109) CREATININE (BEAKER) (test 2.28 mg/dL 0.57-1.25 phja=321) GLUCOSE RANDOM (BEAKER) 115 mg/dL 70-105 (test bjnq=830) CALCIUM (BEAKER) (test 8.9 mg/dL 8.4-10.2 wxyb=999) EGFR (BEAKER) (test 28 mL/min/1.73 sq m ESTIMATED GFR IS NOT ytbh=1585) ACCURATE CREATININE CLEARANCE IN PREDICTING GLOMERULAR FILTRATION RATE. ESTIMATED GFR IS NOT APPLICABLE FOR DIALYSIS PATIENTS. [id number] 21:03:00 Test Item Value Reference Range Comments PROTIME (BEAKER) (test jyjm=212) 14.6 seconds 11.9-14.2 INR (BEAKER) (test cpqz=856) 1.2 <=5.9 PARTIAL THROMBOPLASTIN TIME (BEAKER) (test 40.5 seconds 22.5-36.0 mpsv=927) Effective 10/12/2018: PT Reference Range ChangeNew: 11.9-14.2 Previous: 11.7- 14.7RECOMMENDED COUMADIN/WARFARIN INR THERAPY RANGESSTANDARD DOSE: 2.0-3.0 Includes: PROPHYLAXIS for venous thrombosis, systemic embolization; TREATMENT for venous thrombosis and/or pulmonary embolus.HIGH RISK: Target INR is2.5-3.5 for patients wiht mechanical heart valves.CBC W/PLT COUNT & AUTO [id number] 20:54:00 Test Item Value Reference Range Comments WHITE BLOOD CELL COUNT (BEAKER) (test fbfd=031) 5.2 K/ L 3.5-10.5 RED BLOOD CELL COUNT (BEAKER) (test opuv=682) 4.21 M/ L 4.63-6.08 HEMOGLOBIN (BEAKER) (test ibcv=714) 12.4 GM/DL 13.7-17.5 HEMATOCRIT (BEAKER) (test dkqj=513) 38.9 % 40.1-51.0 MEAN CORPUSCULAR VOLUME (BEAKER) (test ddkz=076) 92.4 fL 79.0-92.2 MEAN CORPUSCULAR HEMOGLOBIN (BEAKER) (test 29.5 pg 25.7-32.2 ljwn=724) MEAN CORPUSCULAR HEMOGLOBIN CONC (BEAKER) (test 31.9 GM/DL 32.3-36.5 qzwy=405) RED CELL DISTRIBUTION WIDTH (BEAKER) (test 14.3 % 11.6-14.4 vncq=489) PLATELET COUNT (BEAKER) (test shoi=554) 238 K/CU MM 150-450 MEAN PLATELET VOLUME (BEAKER) (test mxng=105) 10.0 fL 9.4-12.4 NUCLEATED RED BLOOD CELLS (BEAKER) (test 0 /100 WBC 0-0 vldi=442) NEUTROPHILS RELATIVE PERCENT (BEAKER) (test 61 % fheu=976) LYMPHOCYTES RELATIVE PERCENT (BEAKER) (test 27 % vlxs=202) MONOCYTES RELATIVE PERCENT (BEAKER) (test 8 % cczr=777) EOSINOPHILS RELATIVE PERCENT (BEAKER) (test 3 % yvzz=971) BASOPHILS RELATIVE PERCENT (BEAKER) (test 1 % jfnl=609) NEUTROPHILS ABSOLUTE COUNT (BEAKER) (test 3.17 K/ L 1.78-5.38 okii=612) LYMPHOCYTES ABSOLUTE COUNT (BEAKER) (test 1.38 K/ L 1.32-3.57 eryz=940) MONOCYTES ABSOLUTE COUNT (BEAKER) (test 0.40 K/ L 0.30-0.82 qasz=558) EOSINOPHILS ABSOLUTE COUNT (BEAKER) (test 0.16 K/ L 0.04-0.54 gcas=952) BASOPHILS ABSOLUTE COUNT (BEAKER) (test 0.03 K/ L 0.01-0.08 zhge=067) IMMATURE GRANULOCYTES-RELATIVE PERCENT (BEAKER) 0 % 0-1 (test vhik=4114)
[2019-06-29] MEDS ORDERED: FUROSEMIDE 40 MG/4 ML VIAL ONE (05:57)
[2019-06-29 06:14] LABS: Absolute Lymphocytes (CBC) 0.8 K/uL (0.7-4.9); Hematocrit 29.4 % (39.6-49.0); Lymphocytes % 19.2 % (15.3-44.8); MPV 7.7 fL (7.6-11.3); RBC Red Blood Cell Count 3.18 M/uL (4.33-5.43)
[2019-06-29 06:17] LABS: Protime INR 1.71
--- NOTE | 2019-06-29 06:38 | RAD REPORT ---
EXAM DESCRIPTION: RAD - Chest Single View - 06/29/2019 6:19 am CLINICAL HISTORY: DYSPNEA Chest pain. COMPARISON: Chest Single View dated 05/20/2019; Chest Single View dated 05/10/2019; Chest Single View dated 09/11/2018; Abdomen 1 View (KUB) dated 07/28/2017 FINDINGS: Portable technique limits examination quality. Mild bilateral pulmonary opacities are present likely representing pulmonary edema. The heart is enla rged sternotomy wires present. No displaced fractures.Dual lead pacer device is present. IMPRESSION: Mild CHF versus volume overload pattern.
[2019-06-29 06:41] LABS: Albumin 2.7 g/dL (3.4-5.0); Bilirubin Direct 0.3 mg/dL (0-0.2); Bilirubin Total 0.5 mg/dL (0.2-1.0); CKMB Creatine Kinase MB 4.1 ng/mL (0.3-3.6); Potassium 4.4 mmol/L (3.5-5.1); Protein, Total 7.1 g/dL (6.4-8.2); Troponin (Emerg Dept Use Only) 0.24 ng/mL (0.0-0.045)
--- NOTE | 2019-06-29 06:42 | ER ---
Nurse's Notes [facility] Name: Neftaly Varghese Age: 73 yrs Sex: Male : 1945 Arrival Date: 06/29/2019 Time: 05:27 Bed 7 Private MD: Diagnosis: Unspecified combined systolic (congestive) and diastolic (congestive) heart failure;Pulmonary edema;Dyspnea, unspecified Presentation: 06/29 05:34 Presenting complaint: EMS states: COMPLAINING OF SOB. STARTED 8 AM YESTERDAY AND rv PROGRESSIVELY THROUGHOUT THE DAY. AFTER DOSE BREATHING TREATMENT, HE STARTED FEELING BETTER. JUST RECENTLY RELEASED FROM HOSPITAL AFTER CABG. NOTICED SWELLING ON BOTH THE LOWER EXTREMITITES. Transition of care: patient was not received from another setting of care. Onset of symptoms was June 28, 2019 at 08:00. Risk Assessment: Do you want to hurt yourself or someone else? Patient reports no desire to harm self or others. Initial Sepsis Screen: Does the patient meet any 2 criteria? No. Patient's initial sepsis screen is negative. Does the patient have a suspected source of infection? No. Patient's initial sepsis screen is negative. Care prior to arrival: None. 05:34 Method Of Arrival: EMS: [facility] rv 05:34 Acuity: DEVONTE 3 rv Triage Assessment: 05:58 General: Appears uncomfortable. Respiratory: Reports shortness of breath at rest Onset: rv The symptoms/episode began/occurred yesterday, the patient has mild shortness of breath. Historical: - Allergies: 05:42 Codeine; rv - Home Meds: 06:05 clopidogrel 75 mg Oral tab 1 tab once daily for Thrombosis Prevention after rv Percutaneous Coronary Intervention [Active]; Eliquis 5 mg Oral tab 1 tab 2 times per day [Active]; esomeprazole magnesium 40 mg Oral cpDR 1 cap once daily [Active]; D3 2000 i.u. daily [Active]; ezetimibe 10mg Oral [Active]; famotidine 40 mg Oral tab 1 tab once daily [Active]; Fish Oil 720-1,200 mg Oral cap twice a day for Arteriosclerotic Vascular Disease Prevention [Active]; folic acid 400 mcg Oral tab 1 tab once daily for Folate Deficiency [Active]; tamsulosin 0.4 mg oral cp24 2 caps once daily [Active]; metoprolol succinate 25 mg Oral Tb24 .5 tab twice a day [Active]; Nitrostat 0.4 mg SL subl 1 tab as needed [Active]; trazodone 50 mg Oral tab 1 tab nightly [Active]; amiodarone 200 mg Oral tab 1 tab once daily [Active]; atorvastatin 80 mg oral tab 1 tab once daily [Active]; bumetanide 1 mg Oral tab 1 tab 2 times per day [Active]; gabapentin 100 mg oral cap 1 caps 3 times per day [Active]; metoclopramide HCl 10 mg Oral tab 1 tab before meals [Active]; - PMHx: 05:42 Atrial Fib; Hyperlipidemia; Hypertension; Myocardial infarction; TIA; rv - PSHx: 05:42 CABG; PACEMAKER; CARDIAC STENTS; KIDNEY STENTS; PROSTATE SX; rv - Immunization history:: Adult Immunizations up to date. - Coronavirus screen:: The patient has NOT traveled to [place] in the past 14 days. Proceed with normal triage process as indicated. The patient has NOT had contact with known/suspected case of Coronavirus? Proceed with normal triage procedures. - Social history:: Smoking status: Patient/guardian denies using tobacco, Stopped _ months ago 1. - Family history:: not pertinent. - Ebola Screening: : No symptoms or risks identified at this time. - Hospitalizations: : Patient was recently seen at. Screenin:58 Abuse screen: Denies threats or abuse. Denies injuries from another. Nutritional rv screening: No deficits noted. Tuberculosis screening: No symptoms or risk factors identified. Fall Risk None identified. Assessment: 05:56 General: Appears uncomfortable, Behavior is agitated. Pain: Denies pain. Neuro: Level rv of Consciousness is awake, alert, obeys commands, Oriented to person, place, time, situation. Cardiovascular: Patient's skin is warm and dry. Rhythm is sinus rhythm. Respiratory: Airway is patent Respiratory effort is labored, shallow, Breath sounds with crackles bilaterally. Derm: Skin is intact. 06:10 Reassessment: PATIENT IS AGITATED AND STILL COMPLAINING OF SOB. REFERRED TO DR DE LA TORRE. rv PATIENT IS FOR BIPAP. PATIENT AND FAMILY UPDATED ON PLAN OF CARE AND THEY AGREED. 06:23 Reassessment: CHEST XRAY DONE AT BEDSIDE. RT ON DUTY APPLIED THE BIPAP AFTER. rv 07:00 General: Appears uncomfortable, Behavior is agitated. Pain: Denies pain. Neuro: Level rb1 of Consciousness is awake, alert, obeys commands, Oriented to person, place, time, situation. Cardiovascular: Patient's skin is warm and dry. Rhythm is sinus rhythm. Respiratory: Airway is patent Respiratory effort is labored, Respiratory pattern is regular, Currently on Bi-pap. GI: No signs and/or symptoms were reported involving the gastrointestinal system. : No signs and/or symptoms were reported regarding the genitourinary system. Derm: Skin is intact. 07:05 Reassessment: No changes from previously documented assessment. Dr. Casanova is at the pt. rb1 bedside. Dr. Casanova removed the Bi-Pap and put him on 3 L NC. 08:00 Reassessment: Patient and/or family updated on plan of care and expected duration. Pain rb1 level reassessed. Patient is alert, oriented x 3, equal unlabored respirations, skin warm/dry/pink. General: Behavior is agitated. 08:42 Reassessment: Gave report to YEIMI Lopez. Information from the SBAR was given. All rb1 questions asked and answered. 08:50 Reassessment: Patient appears in no apparent distress at this time. Pt. is sitting up rb1 eating breakfast. Patient denies pain at this time. Vital Signs: 05:33 BP 150 / 89; Pulse 80; Resp 11; Pulse Ox 100% on 2 lpm NC; rv 05:59 Temp 97.6; Weight 84.82 kg; Height 5 ft. 8 in. (172.72 cm); Pain 0/10; rv 06:15 BP 112 / 95; Pulse 80; Resp 17; Pulse Ox 100% on 2 lpm NC; rv 06:30 BP 151 / 98; Pulse 80; Resp 16; Pulse Ox 100% on BiPAP; rv 07:30 BP 151 / 89; Pulse 80; Resp 19; Pulse Ox 99% on 3 lpm NC; Pain 0/10; rb1 08:19 BP 153 / 86; Pulse 80; Resp 20; Pulse Ox 99% on 3 lpm NC; Pain 0/10; rb1 09:17 BP 146 / 91; Pulse 80; Resp 20; Pulse Ox 99% on 3 lpm NC; Pain 0/10; rb1 05:59 Body Mass Index 28.43 (84.82 kg, 172.72 cm) rv ED Course: 05:27 Patient arrived in ED. aa1 05:27 Pernell De La Torre MD is Attending Physician. rn 05:33 Miguel Woods, YEIMI is Primary Nurse. rv 05:36 Triage completed. rv 05:36 Arm band placed on Patient placed in the treatment room, on a stretcher, Patient rv notified of wait time. 05:45 Inserted saline lock: 20 gauge in right antecubital area, using aseptic technique. rv Blood collected. 05:45 Initial lab(s) drawn, by me, sent to lab. First set of blood cultures drawn. rv 05:58 Patient has correct armband on for positive identification. alarm security or surveillance monitor on. Pulse rv ox on. NIBP on. 06:07 Second set of blood cultures drawn by me. rv 06:40 J Luis Casanova MD is Hospitalizing Provider. rn 08:52 No provider procedures requiring assistance completed. Patient admitted, IV remains in rb1 place. Administered Medications: 05:56 Drug: Lasix 40 mg Route: IVP; Site: right antecubital; rv 06:41 Follow up: Response: No adverse reaction rv Output: 06:23 Urine: 300ml (Voided); Total: 300ml. rv 07:55 Urine: 280ml (Voided); Total: 580ml. rb1 Outcome: 06:41 Decision to Hospitalize by Provider. rn 09:18 Admitted to Med/surg accompanied by tech, family with patient, via stretcher, room 224, rb1 with oxygen, with chart, Report called to YEIMI Lopez 09:18 Condition: stable 09:18 Instructed on the need for admit. 09:20 Patient left the ED. rb1 Signatures: Basia Hobbs RN RN aa1 Pernell De La Torre MD MD rn Barber, Rebecca, RN RN rb1 Miguel Woods, YEIMI RN rv Corrections: (The following items were deleted from the chart) 07:54 07:30 BP 151 / 89; Pulse 80bpm; Resp 19bpm; Pulse Ox 99% RA; Pain 0/10; rb1 rb1
--- NOTE | 2019-06-29 06:43 | EDPHYS ---
Physician Documentation [facility] Name: Neftaly Varghese Age: 73 yrs Sex: Male : 1945 Arrival Date: 06/29/2019 Time: 05:27 Bed 7 Private MD: ED Physician Pernell De La Torre HPI: 06/29 05:39 This 73 yrs old Male presents to ER via EMS with complaints of Shortness Of rn Breath. 05:39 The patient has shortness of breath at rest. Onset: The symptoms/episode began/occurred rn at an unknown time. Duration: The symptoms are intermittent. The patient's shortness of breath is aggravated by exertion, light activity, supine position, talking, walking. Severity of symptoms: At their worst the symptoms were moderate in the emergency department the symptoms are unchanged. The patient has experienced similar episodes in the past. Reports sob since his CABG 5 weeks ago, progressively worse since leaving the hospital last week. No fever. + dry cough. Better with breathing treatment that EMS gave him. Worse with laying down and with exertion. Takes bumex, + swelling of legs that has gotten worse.. Historical: - Allergies: 05:42 Codeine; rv - Home Meds: 06:05 clopidogrel 75 mg Oral tab 1 tab once daily for Thrombosis Prevention after rv Percutaneous Coronary Intervention [Active]; Eliquis 5 mg Oral tab 1 tab 2 times per day [Active]; esomeprazole magnesium 40 mg Oral cpDR 1 cap once daily [Active]; D3 2000 i.u. daily [Active]; ezetimibe 10mg Oral [Active]; famotidine 40 mg Oral tab 1 tab once daily [Active]; Fish Oil 720-1,200 mg Oral cap twice a day for Arteriosclerotic Vascular Disease Prevention [Active]; folic acid 400 mcg Oral tab 1 tab once daily for Folate Deficiency [Active]; tamsulosin 0.4 mg oral cp24 2 caps once daily [Active]; metoprolol succinate 25 mg Oral Tb24 .5 tab twice a day [Active]; Nitrostat 0.4 mg SL subl 1 tab as needed [Active]; trazodone 50 mg Oral tab 1 tab nightly [Active]; amiodarone 200 mg Oral tab 1 tab once daily [Active]; atorvastatin 80 mg oral tab 1 tab once daily [Active]; bumetanide 1 mg Oral tab 1 tab 2 times per day [Active]; gabapentin 100 mg oral cap 1 caps 3 times per day [Active]; metoclopramide HCl 10 mg Oral tab 1 tab before meals [Active]; - PMHx: 05:42 Atrial Fib; Hyperlipidemia; Hypertension; Myocardial infarction; TIA; rv - PSHx: 05:42 CABG; PACEMAKER; CARDIAC STENTS; KIDNEY STENTS; PROSTATE SX; rv - Immunization history:: Adult Immunizations up to date. - Coronavirus screen:: The patient has NOT traveled to [place] in the past 14 days. Proceed with normal triage process as indicated. The patient has NOT had contact with known/suspected case of Coronavirus? Proceed with normal triage procedures. - Social history:: Smoking status: Patient/guardian denies using tobacco, Stopped _ months ago 1. - Family history:: not pertinent. - Ebola Screening: : No symptoms or risks identified at this time. - Hospitalizations: : Patient was recently seen at. ROS: 05:39 Constitutional: Negative for fever, chills, and weight loss, Eyes: Negative for injury, rn pain, redness, and discharge, Neck: Negative for injury, pain, and swelling, Cardiovascular: Negative for chest pain, palpitations, + edema Respiratory: Negative for pleuritic chest pain Abdomen/GI: Negative for abdominal pain, nausea, vomiting, diarrhea, and constipation, MS/Extremity: + swelling to bilateral legs Skin: Negative for injury, rash, and discoloration, Neuro: Negative for headache, weakness, numbness, tingling, and seizure. Exam: 05:39 Constitutional: This is a well developed patient who is awake, alert, with moderate rn tachypnea Head/Face: Normocephalic, atraumatic. ENT: dry MM, no stridor Neck: Trachea midline, no crepitus Cardiovascular: Regular rate and rhythm, no pulse deficits Respiratory: + diminished breath sounds at bases, + moderate tachypnea Abdomen/GI: soft, non-tender MS/ Extremity: Pulses equal, no cyanosis. Neurovascular intact. Full, normal range of motion. Equal circumference. Neuro: Awake and alert, GCS 15, oriented to person, place, time, and situation. Cranial nerves II-XII grossly intact. Motor strength 5/5 in all extremities. Sensory grossly intact. Cerebellar exam normal. Normal gait. Vital Signs: 05:33 BP 150 / 89; Pulse 80; Resp 11; Pulse Ox 100% on 2 lpm NC; rv 05:59 Temp 97.6; Weight 84.82 kg; Height 5 ft. 8 in. (172.72 cm); Pain 0/10; rv 06:15 BP 112 / 95; Pulse 80; Resp 17; Pulse Ox 100% on 2 lpm NC; rv 06:30 BP 151 / 98; Pulse 80; Resp 16; Pulse Ox 100% on BiPAP; rv 07:30 BP 151 / 89; Pulse 80; Resp 19; Pulse Ox 99% on 3 lpm NC; Pain 0/10; rb1 08:19 BP 153 / 86; Pulse 80; Resp 20; Pulse Ox 99% on 3 lpm NC; Pain 0/10; rb1 09:17 BP 146 / 91; Pulse 80; Resp 20; Pulse Ox 99% on 3 lpm NC; Pain 0/10; rb1 05:59 Body Mass Index 28.43 (84.82 kg, 172.72 cm) rv MDM: 05:27 Patient medically screened. rn 06:38 Differential diagnosis: Anemia CHF exacerbation, pneumonia, Pneumothorax pulmonary rn edema, Pulmonary Embolism. Data reviewed: vital signs, nurses notes, lab test result(s), EKG, radiologic studies, plain films, and as a result, I will admit patient. Test interpretation: by ED physician or midlevel provider: ECG, plain radiologic studies, CXR with pulmonary edema. Counseling: I had a detailed discussion with the patient and/or guardian regarding: the historical points, exam findings, and any diagnostic results supporting the discharge/admit diagnosis, lab results, radiology results, the need for further work-up and treatment in the hospital. Response to treatment: the patient's symptoms have markedly improved after treatment, Markedly improved on bipap, and as a result, I will admit patient. Admission orders: after a detailed discussion of the patient's condition and case, the admit orders are written by me. ED course: Pt improved on bipap, CXR shows pulmonary edema, story consistent with CHF/pulmonary edema, admitted to hospitalist service. Sees Dr. Garber locally. . 06/29 05:38 Order name: Blood Culture Adult (2) rn 06/29 05:38 Order name: BMP rn 06/29 05:38 Order name: CBC with Diff rn 06/29 05:38 Order name: Ckmb rn 06/29 05:38 Order name: Hepatic Function rn 06/29 05:38 Order name: NT PRO-BNP rn 06/29 05:38 Order name: PT-INR rn 06/29 05:38 Order name: Ptt, Activated rn 06/29 05:38 Order name: Troponin (emerg Dept Use Only) rn 06/29 06:24 Order name: CBC with Automated Diff; Complete Time: 06:29 EDMS 06/29 06:24 Order name: Protime (+INR); Complete Time: 06:29 EDMS 06/29 06:24 Order name: PTT, Activated Partial Thromb; Complete Time: 06:29 EDMS 06/29 06:43 Order name: Basic Metabolic Panel; Complete Time: 22:29 EDMS 06/29 06:43 Order name: Liver (Hepatic) Function; Complete Time: 22:29 EDMS 06/29 05:38 Order name: XRAY CXR (1 view) rn 06/29 05:38 Order name: EKG; Complete Time: 05:40 rn 06/29 05:38 Order name: Cardiac monitoring; Complete Time: 05:53 rn 06/29 05:38 Order name: EKG - Nurse/Tech; Complete Time: 05:53 rn 06/29 05:38 Order name: IV Saline Lock; Complete Time: 05:53 rn 06/29 05:38 Order name: Labs collected and sent; Complete Time: 05:53 rn 06/29 05:38 Order name: O2 Per Protocol; Complete Time: 05:53 rn 06/29 05:38 Order name: O2 Sat Monitoring; Complete Time: 05:53 rn 06/29 06:08 Order name: BIPAP rn 06/29 06:39 Order name: RAD; Complete Time: 06:41 EDMS 06/29 06:43 Order name: CKMB Creatine Kinase MB; Complete Time: 22:29 EDMS 06/29 06:43 Order name: Troponin (Emerg Dept Use Only); Complete Time: 22:29 EDMS 06/29 06:43 Order name: NT PRO-BNP; Complete Time: 22:29 EDMS Administered Medications: 05:56 Drug: Lasix 40 mg Route: IVP; Site: right antecubital; rv 06:41 Follow up: Response: No adverse reaction rv Disposition: 06/29/19 06:41 Hospitalization ordered by J Luis Casanova for Inpatient Admission. Preliminary diagnosis are Unspecified combined systolic (congestive) and diastolic (congestive) heart failure, Pulmonary edema, Dyspnea, unspecified. - Bed requested for Telemetry/MedSurg (Inpatient). - Status is Inpatient Admission. rb1 - Condition is Stable. - Problem is an ongoing problem. - Symptoms have improved. Signatures: Dispatcher [employer] EDMS Aisha Kelly RN RN dw Pernell De La Torre MD MD rn Barber, Rebecca, RN RN rb1 Miguel Woods RN RN rv Corrections: (The following items were deleted from the chart) 08:18 06:41 Hospitalization Ordered by J Luis Casanova MD for Inpatient Admission. Preliminary dw diagnosis is Unspecified combined systolic (congestive) and diastolic (congestive) heart failure; Pulmonary edema; Dyspnea, unspecified. Bed requested for Telemetry/MedSurg (Inpatient). Status is Inpatient Admission. Condition is Stable. Problem is an ongoing problem. Symptoms have improved. rn : 08:18 06/29/2019 06:41 Hospitalization Ordered by J Luis Casanova MD for Inpatient rb1 Admission. Preliminary diagnosis is Unspecified combined systolic (congestive) and diastolic (congestive) heart failure; Pulmonary edema; Dyspnea, unspecified. Bed requested for Telemetry/MedSurg (Inpatient). Status is Inpatient Admission. Condition is Stable. Problem is an ongoing problem. Symptoms have improved. dw
[2019-06-29] MEDS ORDERED: ONDANSETRON 4 MG/2 ML VIAL IV PRN (07:21)
[2019-06-29] MEDS ORDERED: ACETAMINOPHEN 500 MG TAB PO PRN (07:21)
[2019-06-29] MEDS: METOPROLOL TAR 50 MG TAB PO SCH ×2 (09:00→21:00)
[2019-06-29] MEDS ORDERED: ENOXAPARIN 30 MG/0.3 ML SQ SCH (09:00)
[2019-06-29] MEDS ORDERED: CLOPIDOGREL 75 MG TABLET PO SCH (09:00)
--- NOTE | 2019-06-29 09:22 | P.HP ---
Certification for Inpatient Patient admitted to: Inpatient With expected LOS: >2 Midnights Patient will require the following post-hospital care: None Practitioner: I am a practitioner with admitting privileges, knowledge of patient current condition, hospital course, and medical plan of care. Services: Services provided to patient in accordance with Admission requirements found in Title 42 Section 412.3 of the Code of Federal Regulations Patient History Date of Service: 06/29/19 Reason for admission: Acute CHF exacerbation & acute on CKD History of Present Illness: Patient is a 73-year-old gentleman who came to the hospital with shortness of breath. Patient was seen in the emergency room and found have acute CHF exacerbation. Patient was started on Lasix. However, patient also has a history of chronic kidney disease. Patient was severely short of breath in the emergency room and had to be placed on BiPAP. After the Lasix and the blood pressure control he is starting to feel better. We will slowly wean him off the BiPAP support. Will have to gently diurese him. Patient will be admitted to the hospital for further workup. Allergies codeine Adverse Reaction (Mild, Verified 06/30/16 10:09) Nausea/Vomiting Home Medications: Amiodarone HCl [Cordarone*] 200 mg PO DAILY 06/29/19 Apixaban [Eliquis] 5 mg PO BID 06/29/19 Atorvastatin Calcium [Lipitor] 80 mg PO BEDTIME 06/29/19 Bumetanide 1 mg PO BID 6AM 6PM 06/29/19 Cholecalciferol (Vitamin D3) [Vitamin D3] 2,000 unit PO DAILY 06/29/19 Clopidogrel Bisulfate [Plavix] 75 mg PO DAILY 06/29/19 Esomeprazole Magnesium 40 mg PO DAILY 06/29/19 Ezetimibe 10 mg PO BEDTIME 06/29/19 Famotidine 40 mg PO BEDTIME 06/29/19 Folic Acid 0.4 mg PO DAILY 06/29/19 Metoclopramide [Reglan*] 10 mg PO TIDWM 06/29/19 Metoprolol Tartrate 25 mg PO BID 06/29/19 Nitroglycerin [Nitrostat*] 0.4 mg SL SEECOM 06/29/19 Trumann-3/Dha/Epa/Fish Oil [Fish Oil 1,000 mg Softgel] 2 each PO DAILY 06/29/19 Tamsulosin [Flomax*] 0.8 mg PO DAILY 06/29/19 Trazodone [Desyrel*] 50 mg PO BEDTIME 06/29/19 Aspirin [Aspirin EC 81 MG] 81 mg PO DAILY 06/30/19 Calcitrol [Rocaltrol*] 0.5 mcg PO DAILY cap 07/02/19 Furosemide [Lasix] 40 mg PO BID #60 tablet 07/02/19 - Past Medical/Surgical History Diabetic: No -: HTN -: BPH -: CAD, OR, Stent to the heart, Cardiology-Dr. 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 moist/pink, EOMI, Sclerae nonicteric Neck: Supple, 2+ carotid pulse no bruit, No LAD, Without JVD or thyroid abnormality Respiratory: Crackles/rales, Expiratory wheezes Cardiovascular: Regular rate/rhythm, Normal S1 S2, No murmurs Gastrointestinal: Normal bowel sounds, Soft and benign, Non-distended, No tenderness Musculoskeletal: No clubbing, No tenderness, Swelling Integumentary: No rashes Neurological: Normal gait, Normal speech, Normal strength at 5/5 x4 extr, Normal tone, Sensation intact, Normal affect Lymphatics: No axilla or inguinal lymphadenopathy - Studies Laboratory Data (last 24 hrs) 06/29/19 05:45: PT 19.8 H, INR 1.71, APTT 33.8 06/29/19 05:45: WBC 4.4, Hgb 9.6 L, Hct 29.4 L, Plt Count 334 06/29/19 05:45: Sodium 138, Potassium 4.4, BUN 47 H, Creatinine 3.43 H, Glucose 107 H, Total Bilirubin 0.5, AST 34, ALT 39, Alkaline Phosphatase 263 H Assessment & Plan - Problems (Diagnosis) (1) Acute systolic CHF (congestive heart failure), NYHA class 3 Status: Acute (2) Acute worsening of stage 3 chronic kidney disease Status: Acute (3) Atrial fibrillation Status: Acute (4) Carotid artery occlusion Status: Acute (5) Chest pain, rule out acute myocardial infarction Status: Acute (6) Respiratory distress Status: Acute - Plan 1. Echocardiogram to be repeated after CABG 2. Wean off BIPAP 3. We will start patient on a Beta arely 4. Cardiology & Nephrology consultation 5. Aggressive diuresis 6. Strict I's and O's 7. Repeat CXR 8. Daily weights 9. Education regarding diet and treatment of congestive heart failure Discharge Plan: Home Plan to discharge in: Greater than 2 days - Advance Directives Does patient have a Living Will: No Does patient have a Durable POA for Healthcare: No - Code Status/Comfort Care Code Status Assessed: Yes Code Status: Full Code Critical Care: No Time Spent Managing PTS Care (In Minutes): 45
--- NOTE | 2019-06-29 09:22 | EKG ---
Test Date: 2019-06-29 Test Time: 05:38:23 Environmental Epidemiologist: JOYCE MEASUREMENT RESULTS: Intervals: Rate: 80 MO: 224 QRSD: 112 QT: 402 QTc: 463 [place]: P: MO: 224 QRS: 53 T: 138 INTERPRETIVE STATEMENTS: Atrial-paced rhythm with prolonged AV conduction Incomplete left bundle branch block Nonspecific T wave abnormality Abnormal ECG Compared to ECG 05/21/2019 05:34:21 Left bundle-branch block now present T-wave abnormality now present Sinus bradycardia no longer present ST (T wave) deviation no longer present Possible ischemia no longer present Electronically Signed On 06-29-19 09:22:21 [employer]CH [employer]UCK DR[employer] by Tyrel Mann
[2019-06-29 09:55] VITALS: BMI 28.4
--- NOTE | 2019-06-29 10:07 | ECHO ---
HEIGHT: 5 ft 8 in WEIGHT: 187 lb 0 oz DATE OF STUDY: 06/29/[address]: J Luis Casanova MD 2-DIMENSIONAL: YES M.MODE: YES DOPPLER: YES COLOR FLOW: YES TDS: NO PORTABLE: NO DEFINITY: NO BUBBLE STUDY: NO DIAGNOSIS: CONGESTIVE HEART FAILURE, RECENT CORONARY ARTERY BYPASS GRAFT IN MAY 2019 CARDIAC HISTORY: CATHERIZATION: SURGERY: YES PROSTHETIC VALVE: PACEMAKER: YES MEASUREMENTS (cm) DIASTOLIC (NORMALS) SYSTOLIC (NORMALS) IVSd 1.4 (0.6-1.2) LA Diam (1.9-4.0) LVEF 15% LVIDd 5.9 (3.5-5.7) LVIDs 5.5 (2.0-3.5) %FS 7% LVPWd 1.3 (0.6-1.2) Ao Diam 2.7 (2.0-3.7) 2 DIMENSIONAL ASSESSMENT: RIGHT ATRIUM: DILATED LEFT ATRIUM: DILATED RIGHT VENTRICLE: DILATED, PACEMAKER LEFT VENTRICLE: DILATED, LEFT VENTRICULAR HYPERTROPHY TRICUSPID VALVE: NORMAL MITRAL VALVE: NORMAL PULMONIC VALVE: NORMAL AORTIC VALVE: MILD SCLEROSIS PERICARDIAL EFFUSION: NONE AORTIC ROOT: NORMAL LEFT VENTRICULAR WALL MOTION: SEVERE GLOBAL HYPOKINESIS. DOPPLER/COLOR FLOW: MILD TO MODERATE MITRAL REGURGITATION. MILD TRICUSPID REGURGITATION. ESTIMATED RIGHT VENTRICULAR SYSTOLIC PRESSURE 48 mmHg. MILD TO MODERATE PULMONARY HYPERTENSION. NO AORTIC STENOSIS OR AORTIC REGURGITATION. COMMENTS: SEVERLY DEPRESSED LEFT VENTRICULAR EJECTION FRACTION. LEFT VENTRICULAR HYPERTROPHY. FOUR CHAMBER DILATATION. AORTIC SCLEROSIS WITH NO NO AORTIC STENOSIS OR AORTIC REGURGITATION. MILD TO MODERATE MITRAL REGURGITATION. MILD TRICUSPID REGURGITATION. MILD TO MODERATE PULMONARY HYPERTENSION. TECHNOLOGIST: Leonel GOODWIN
[2019-06-29] MEDS: ASPIRIN EC 81 MG TAB PO SCH (10:24)
[2019-06-29] MEDS: FUROSEMIDE 40 MG/4 ML VIAL IV SCH ×2 (10:24→21:33)
[2019-06-29 13:12] LABS: Urine Appearance CLEAR; Urine Bilirubin NEGATIVE (NEG); Urine Blood NEGATIVE (NEG); Urine Color YELLOW; Urine Glucose NEGATIVE (NEG); Urine Protein NEGATIVE (NEG); Urine Specific Gravity <=1.005 (1.005-1.030); Urine Urobilinogen 0.2 mg/dL (0.2-1.0)
[2019-06-29 13:18] LABS: Urine Bacteria NONE SEEN /HPF (NONE SEEN); Urine Culture Reflex Order NOT NEEDED; Urine RBC <5 /HPF (NONE SEEN)
--- NOTE | 2019-06-29 14:16 | CON ---
History Of Present Illness: Mr. Varghese is 73, came to the hospital with dyspnea and he has been fou nd to be in pulmonary edema. He has received Lasix and feels a lot better. He has also had edema, o rthopnea. He is known to have coronary heart disease. Recently went through bypass surgery. He had stents in his heart before that. He now has a pacemaker and he has gone through an atrial fibrillat ion ablation as well. His hospital course at [facility] was prolonged and for at least several days, he was requiring Impella pump to his help his LV dysfunction post bypass. He has severe renal insuf ficiency, underlying diabetes, and now has congestive heart failure. Medications: His home meds are Plavix, Eliquis, esomeprazole, ezetimibe, famotidine, folic acid, mayen sulosin, metoprolol, Nitrostat, trazodone, amiodarone, and atorvastatin 80, bumetanide 1 mg twice a d ay, gabapentin, and metoclopramide. Physical Examination: General: The patient looks comfortable, not in distress. Lungs: Clear. Presently, a few hours ago, he had a lot of crackles according to the ER physician. His chest x-ray showed pulmonary edema. EXTREMITIES: There is pedal edema that is mild, 2+ distal pulses are diminished. Impression: The patient has heart failure and renal failure. His creatinine is 3.43. His N-termina l BNP is elevated as well. We will do an echocardiogram and try and learn what kind of LV function h e has following all of these recent interventions and we will have to provide him Lasix even though h is creatinine is high. This will probably result in worsening renal function and we may have to have him be seen by Nephrology and perhaps need dialysis. His troponins are elevated. I am not surprise d given all the recent procedures, his elevated creatinine, congestive heart failure, and this does n ot seem to be an acute coronary syndrome. There is no indication nor do I recommend that we do a car diac cath again. His bypass surgery bypassing right and a branch of the LAD was roughly 1 month ago. Thank you very much for your kind referral of Mr. Varghese. I will follow him with you. VISHNU/DAWIT Voice ID: [id number] Report ID: [id number]
[2019-06-29] MEDS ORDERED: NITROGLYCERIN 0.4 MG/TAB SL PRN (17:00)
[2019-06-29] MEDS: METOCLOPRAMIDE 5 MG TAB PO SCH (17:14)
[2019-06-29] MEDS: METOPROLOL TAR 25 MG TAB PO SCH (21:32)
[2019-06-29] MEDS: APIXABAN 5 MG TABLET PO SCH (21:32)
[2019-06-29] MEDS: TRAZODONE 50 MG TABLET PO SCH (21:32)
[2019-06-29] MEDS: ATORVASTATIN 80 MG TAB PO SCH (21:32)
[2019-06-29] MEDS: GABAPENTIN 100 MG CAP PO SCH (21:32)
[2019-06-29] MEDS: EZETIMIBE 10 MG TAB PO SCH (21:33)
--- NOTE | 2019-06-29 22:39 | P.CNS ---
Date of Consult: 06/29/19 Reason for Consult: YUDITH/ CKD Requesting Physician: J Luis Casanova Chief Complaint: Acute CHF exacerbation & acute on CKD History of Present Illness: 73 yo WM CKD, HTN, PAD presented to the ER with moderate, progressive dyspnea in the setting of CHF with associated edema and YUDITH. Recent CABG. 05:39 This 73 yrs old Male presents to ER via EMS with complaints of Shortness Of rn Breath. 05:39 The patient has shortness of breath at rest. Onset: The symptoms/episode began/occurred rn at an unknown time. Duration: The symptoms are intermittent. The patient' s shortness of breath is aggravated by exertion, light activity, supine position, talking , walking. Severity of symptoms: At their worst the symptoms were moderate in the emergency department the symptoms are unchanged. The patient has experienced similar episodes in the past. Reports sob since his CABG 5 weeks ago, progressively worse since leaving the hospital last week. No fever. + dry cough. Better with breathing treatment that EMS gave him. Worse with laying down and with exertion. Takes bumex, + swelling of legs that has gotten worse.. Allergies codeine Adverse Reaction (Mild, Verified 06/30/16 10:09) Nausea/Vomiting Home medications list reviewed: Yes Home Medications: Amiodarone HCl [Cordarone Tab] 200 mg PO DAILY 06/29/19 Apixaban [Eliquis] 5 mg PO BID 06/29/19 Atorvastatin Calcium [Lipitor] 80 mg PO BEDTIME 06/29/19 Bumetanide 1 mg PO BID 6AM 6PM 06/29/19 Cholecalciferol (Vitamin D3) [Vitamin D3] 2,000 unit PO DAILY 06/29/19 Clopidogrel Bisulfate [Plavix] 75 mg PO DAILY 06/29/19 Esomeprazole Magnesium 40 mg PO DAILY 06/29/19 Ezetimibe 10 mg PO BEDTIME 06/29/19 Famotidine 40 mg PO BEDTIME 06/29/19 Folic Acid 0.4 mg PO DAILY 06/29/19 Gabapentin 100 mg PO TID 06/29/19 Metoclopramide [Reglan] 10 mg PO TIDWM 06/29/19 Metoprolol Tartrate 25 mg PO BID 06/29/19 Nitroglycerin [Nitrostat] 0.4 mg SL SEECOM 06/29/19 [place]-3/Dha/Epa/Fish Oil [Fish Oil 1,000 mg Softgel] 2 each PO DAILY 06/29/19 Tamsulosin [Flomax] 0.8 mg PO DAILY 06/29/19 Trazodone [Desyrel] 50 mg PO BEDTIME 06/29/19 - Past Medical/Surgical History Diabetic: No -: HTN -: BPH -: CAD, [place], Stent to the heart, Cardiology-Dr. 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 - Family History Mother Medical History: Hypertension, Kidney disease Father Medical History: Heart disease, Hypertension, Kidney disease Notes: hx: HD Sister Medical History: Diabetes - Social History Smoking Status: Current every day smoker Alcohol use: No CD- Drugs: No Caffeine use: No Place of Residence: Home Review of Systems 10-point ROS is otherwise unremarkable General: Weakness, Malaise Respiratory: Shortness of Breath, SOB with Excertion Cardiovascular: Edema Neurological: Weakness Physical Examination Temp Pulse Resp BP Pulse Ox 97.2 F 80 20 105/57 L 98 06/29/19 20:00 06/29/19 21:33 06/29/19 20:00 06/29/19 21:33 06/29/19 20:00 General: In no apparent distress, Oriented x3, Cooperative HEENT: Atraumatic Neck: Supple, JVD distended Respiratory: Diminished Cardiovascular: Regular rate/rhythm, Edema Gastrointestinal: Soft and benign, Non-distended Musculoskeletal: No clubbing, No contractures Integumentary: No rashes, No cyanosis Neurological: Normal speech Laboratory Data (last 24 hrs) 06/29/19 05:45: PT 19.8 H, INR 1.71, APTT 33.8 06/29/19 05:45: WBC 4.4, Hgb 9.6 L, Hct 29.4 L, Plt Count 334 06/29/19 05:45: Sodium 138, Potassium 4.4, BUN 47 H, Creatinine 3.43 H, Glucose 107 H, Total Bilirubin 0.5, AST 34, ALT 39, Alkaline Phosphatase 263 H Imagings Data: EXAM DESCRIPTION: RAD - Chest Single View - 06/29/2019 6:19 am CLINICAL HISTORY: DYSPNEA Chest pain. COMPARISON: Chest Single View dated 05/20/2019; Chest Single View dated 2018; Chest Single View dated 09/11/2018; Abdomen 1 View (KUB) dated 07/28/2017 FINDINGS: Portable technique limits examination quality. Mild bilateral pulmonary opacities are present likely representing pulmonary edema. The heart is enlarged sternotomy wires present. No displaced fractures.Dual lead pacer device is present. IMPRESSION: Mild CHF versus volume overload pattern. LEFT VENTRICULAR WALL MOTION: SEVERE GLOBAL HYPOKINESIS. DOPPLER/COLOR FLOW: MILD TO MODERATE MITRAL REGURGITATION. MILD TRICUSPID REGURGITATION. ESTIMATED RIGHT VENTRICULAR SYSTOLIC PRESSURE 48 mmHg. MILD TO MODERATE PULMONARY HYPERTENSION. NO AORTIC STENOSIS OR AORTIC REGURGITATION. COMMENTS: SEVERLY DEPRESSED LEFT VENTRICULAR EJECTION FRACTION. LEFT VENTRICULAR HYPERTROPHY. FOUR CHAMBER DILATATION. AORTIC SCLEROSIS WITH NO NO AORTIC STENOSIS OR AORTIC REGURGITATION. MILD TO MODERATE MITRAL REGURGITATION. MILD TRICUSPID REGURGITATION. MILD TO MODERATE PULMONARY HYPERTENSION. Conclusions/Impression: A/ YUDITH likely CRS. Hypocalcemia. CKD IV. YUE sp stent. Systolic CHF, A/C. Moderate malnutrition. Anemia in chronic illness. BPH with LUTS. P/ Continue current POC and Medications. Continue Lasix. Follow up with cardiology. Low sodium diet. No NSAIDs. AM labs. Daily weight. Thank you kindly for the consultation.
[2019-06-30 05:59] LABS: Absolute Lymphocytes (CBC) 1.1 K/uL (0.7-4.9); Basophils % 0.9 % (0-1.3); Hematocrit 25.6 % (39.6-49.0); Lymphocytes % 25.2 % (15.3-44.8); MPV 7.6 fL (7.6-11.3); RBC Red Blood Cell Count 2.74 M/uL (4.33-5.43)
[2019-06-30 06:26] LABS: Albumin 2.2 g/dL (3.4-5.0); Bilirubin Total 0.5 mg/dL (0.2-1.0); Magnesium 1.6 mg/dL (1.8-2.4); Phosphorus 3.9 mg/dL (2.5-4.9); Potassium 4.2 mmol/L (3.5-5.1); Protein, Total 5.7 g/dL (6.4-8.2)
[2019-06-30] MEDS: DOCOSAHEXANOIC AC/EPA 1000 MG PO SCH (08:27)
[2019-06-30] MEDS: PANTOPRAZOLE 40MG TABLET PO SCH (08:27)
[2019-06-30] MEDS: METOCLOPRAMIDE 5 MG TAB PO SCH ×3 (08:27→16:47)
[2019-06-30] MEDS: ASPIRIN EC 81 MG TAB PO SCH (08:27)
[2019-06-30] MEDS: TAMSULOSIN 0.4 MG SR CAP PO SCH (08:28)
[2019-06-30] MEDS: APIXABAN 5 MG TABLET PO SCH ×2 (08:28→20:15)
[2019-06-30] MEDS: CLOPIDOGREL 75 MG TABLET PO SCH (08:28)
[2019-06-30] MEDS: GABAPENTIN 100 MG CAP PO SCH ×2 (08:28→08:37)
[2019-06-30] MEDS: AMIODARONE HCL 200 MG TAB PO SCH (08:28)
[2019-06-30] MEDS: VITAMIN D 1000 UNIT TAB PO SCH (08:28)
[2019-06-30] MEDS: METOPROLOL TAR 25 MG TAB PO SCH ×2 (08:29→20:14)
[2019-06-30] MEDS: FUROSEMIDE 40 MG/4 ML VIAL IV SCH ×2 (08:29→20:15)
[2019-06-30] MEDS: FOLIC ACID 1 MG TABLET PO SCH (08:29)
[2019-06-30] MEDS ORDERED: MAGNESIUM SULFATE 1 gm IVPB 1 GM/100 ML BAG IV ONE (09:00)
[2019-06-30] MEDS ORDERED: HOME MED 1 EA UNK (Cholecalciferol (Vitamin D3) [Vitamin D3] 2,000 UNIT) PO SCH (09:00)
[2019-06-30] MEDS ORDERED: FISH OIL PO SCH (09:00)
[2019-06-30] MEDS ORDERED: EPA PO SCH (09:00)
[2019-06-30] MEDS ORDERED: OMEGA PO SCH (09:00)
[2019-06-30] MEDS ORDERED: HOME MED 1 EA UNK (Esomeprazole Magnesium [Esomeprazole Magnesium] 40 MG) PO SCH (09:00)
[2019-06-30] MEDS ORDERED: DHA PO SCH (09:00)
[2019-06-30] MEDS ORDERED: NA CHLORIDE 0.9% 250 ML ONE (09:39)
--- NOTE | 2019-06-30 12:47 | RAD REPORT ---
EXAM DESCRIPTION: [place] Single View06/30/2019 12:40 pm CLINICAL HISTORY: Shortness of breath COMPARISON: June 29 FINDINGS: Mild bilateral pulmonary opacities have partially resolved. The heart is moderately enlarged. Small pleural effusions. Post surgical changes involve the chest Pacemaker leads are in place. IMPRESSION: Partial resolution in mild CHF
[2019-06-30] MEDS ORDERED: EPOETIN ALFA 20,000 UNIT/1 ML VIAL SQ ONE (14:15)
--- NOTE | 2019-06-30 14:57 | P.PN ---
Subjective Date of Service: 06/30/19 Chief Complaint: Acute CHF exacerbation & acute on CKD Subjective: No new changes, Improving, Doing well Review of Systems General: Weakness Eyes: Unremarkable ENT: Unremarkable Respiratory: Unremarkable Cardiovascular: Orthopnea, Edema Gastrointestinal: Unremarkable Genitourinary: Unremarkable Musculoskeletal: Unremarkable Integumentary: Unremarkable Neurological: Unremarkable Physical Examination - Vital Signs Temperature: 98.3 F Blood Pressure: 111/56 Pulse: 76 Respirations: 18 Pulse Ox (%): 97 - Physical Exam General: Alert, In no apparent distress, Oriented x3, Cooperative HEENT: Atraumatic, Normocephalic, PERRLA, Mucous membr. moist/pink Neck: Supple, 2+ carotid pulse no bruit, JVD distended Respiratory: Clear to auscultation bilaterally, Normal air movement Cardiovascular: No edema, Normal pulses, Regular rate/rhythm, Normal S1 S2, Abnormal S3 Gastrointestinal: Hypoactive, Soft and benign, Non-distended, No ascites Musculoskeletal: No clubbing, No contractures, No erythema, No tenderness, No warmth, Swelling Integumentary: No rashes, No breakdown, No significant lesion, No erythema, No warmth Neurological: Normal gait, Normal speech, Normal strength at 5/5 x4 extr, Normal tone, Sensation intact, Cranial nerves 3-12 intact, Normal reflexes 2+, Normal affect - Studies Medications List Reviewed: Yes Assessment And Plan - Current Problems (Diagnosis) (1) Acute systolic CHF (congestive heart failure), NYHA class 3 Current Visit: Yes Status: Acute (2) Atrial fibrillation Current Visit: No Status: Acute (3) Acute worsening of stage 3 chronic kidney disease Current Visit: No Status: Acute (4) Carotid artery occlusion Current Visit: No Status: Acute (5) Benign prostatic hypertrophy without outflow obstruction Current Visit: No Status: Acute (6) NSTEMI (non-ST elevated myocardial infarction) Current Visit: No Status: Acute - Plan 06/30/19: Patient was admitted for CHF exacerbation. He was treated wheeze IV Lasix 40 mg b.i.d. He is doing much better. He properly can be discharged in 1 or 2 days. 1. Systolic CHF exacerbation. He was found to have pulmonary edema and lower extremity edema. Ejection fraction 15%. On diureses. Continue beta-arely. Surface Hydrologist has been following this patient. 2. Acute on chronic kidney disease stage III. Creatinine 3.43 on arrival. This is secondary to CHF exacerbation. Will closely monitor in this setting of diureses. Soda Clerk is on board. 3. Atrial fibrillation. Status post ablation. Continue amiodarone and Eliquis. Continue metoprolol 25 mg b.i.d. 4. Coronary artery disease. Status post recent bypass surgery. Continue Plavix and statin. 5. BPH. On Flomax. Discharge Plan: Home Plan to discharge in: 48 Hours - Code Status/Comfort Care Code Status Assessed: Yes Code Status: Full Code Time Spent Managing PTS Care (In Minutes): 32
[2019-06-30] MEDS: CALCITROL 0.25 MCG CAP PO SCH (14:58)
[2019-06-30] MEDS: ATORVASTATIN 80 MG TAB PO SCH (20:14)
[2019-06-30] MEDS: EZETIMIBE 10 MG TAB PO SCH (20:14)
[2019-06-30] MEDS: TRAZODONE 50 MG TABLET PO SCH (20:14)
--- NOTE | 2019-06-30 20:28 | P.PN ---
Date of Service: 06/30/19 Vital Signs Temp Pulse Resp BP Pulse Ox 97.7 F 80 18 121/65 98 06/30/19 16:00 06/30/19 20:15 06/30/19 16:00 06/30/19 20:15 06/30/19 16:00 Medications Acetaminophen (Tylenol -Extra Strength) 500 mg PO Q4HP PRN PRN Reason: pain/fever Stop: 07/29/19 07:22 Amiodarone HCl (Cordarone Tab) 200 mg PO DAILY YAJAIRA Stop: 07/30/19 09:01 Last Admin: 06/30/19 08:28 Dose: 200 mg Apixaban (Eliquis) 5 mg PO BID YAJAIRA Stop: 07/29/19 21:01 Last Admin: 06/30/19 20:15 Dose: 5 mg Aspirin (Aspirin Ec) 81 mg PO DAILY YAJAIRA Stop: 07/29/19 09:01 Last Admin: 06/30/19 08:27 Dose: 81 mg Atorvastatin Calcium (Lipitor) 80 mg PO BEDTIME YAJAIRA Stop: 07/29/19 21:01 Last Admin: 06/30/19 20:14 Dose: 80 mg Calcitriol (Rocaltrol) 0.5 mcg PO DAILY YAJAIRA Stop: 07/30/19 14:01 Last Admin: 06/30/19 14:58 Dose: 0.5 mcg Cholecalciferol (Vitamin D 1000 Iu Tab) 2,000 unit PO DAILY YAJAIRA Stop: 07/30/19 09:01 Last Admin: 06/30/19 08:28 Dose: 2,000 unit Clopidogrel Bisulfate (Plavix) 75 mg PO DAILY YAJAIRA Stop: 07/30/19 09:01 Last Admin: 06/30/19 08:28 Dose: 75 mg Ezetimibe (Zetia) 10 mg PO BEDTIME YAJAIRA Stop: 07/29/19 21:01 Last Admin: 06/30/19 20:14 Dose: 10 mg Fish Oil (Fish Oil 1,000 Mg Cap) 2,000 mg PO DAILY YAJAIRA Stop: 07/30/19 09:01 Last Admin: 06/30/19 08:27 Dose: 2,000 mg Folic Acid (Folic Acid) 0.5 mg PO DAILY YAJAIRA Stop: 07/30/19 09:01 Last Admin: 06/30/19 08:29 Dose: 0.5 mg Furosemide (Lasix) 40 mg IV Q12HR YAJAIRA Stop: 07/29/19 09:01 Last Admin: 06/30/19 20:15 Dose: 40 mg Metoclopramide HCl (Reglan) 10 mg PO TIDWM YAJAIRA Stop: 07/29/19 17:01 Last Admin: 06/30/19 16:47 Dose: 10 mg Metoprolol Tartrate (Lopressor) 25 mg PO BID YAJAIRA Stop: 07/29/19 21:01 Last Admin: 06/30/19 20:14 Dose: 25 mg Nitroglycerin (Nitrostat) 0.4 mg SL UD PRN PRN Reason: Pain scale 2-4 (Mild) Stop: 07/29/19 17:01 Ondansetron HCl (Zofran) 4 mg IV Q6HP PRN PRN Reason: NAUSEA / VOMITING Stop: 07/29/19 07:22 Pantoprazole Sodium (Protonix Tab) 40 mg PO ACB YAJAIRA Stop: 07/30/19 07:31 Last Admin: 06/30/19 08:27 Dose: 40 mg Sodium Chloride (Normal Saline Flush) 10 ml IV BID YAJAIRA Stop: 07/29/19 09:01 Last Admin: 06/30/19 20:15 Dose: 10 ml Tamsulosin HCl (Flomax) 0.8 mg PO DAILY YAJAIRA Stop: 07/30/19 09:01 Last Admin: 06/30/19 08:28 Dose: 0.8 mg Trazodone HCl (Desyrel) 50 mg PO BEDTIME YAJAIRA Stop: 07/29/19 21:01 Last Admin: 06/30/19 20:14 Dose: 50 mg Microbiology Results 06/29/19 06:07 Blood - Blood Aerobic Blood Culture - Preliminary No growth in 24 hours. 06/29/19 06:07 Blood - Blood Anaerobic Blood Culture - Preliminary No growth in 24 hours. 06/29/19 05:45 Blood - Blood Aerobic Blood Culture - Preliminary No growth in 24 hours. 06/29/19 05:45 Blood - Blood Anaerobic Blood Culture - Preliminary No growth in 24 hours. Assessment/ Plan: Nephrology Feeling better. CPS improved without CP or SOB. +PRECIADO No acute events overnight. Vitals, medications, blood work and imaging reviewed in the chart. General: In no apparent distress, Oriented x3, Cooperative HEENT: Atraumatic Neck: Supple, JVD distended Respiratory: Diminished Cardiovascular: Regular rate/rhythm, Edema Gastrointestinal: Soft and benign, Non-distended Musculoskeletal: No clubbing, No contractures Integumentary: No rashes, No cyanosis Neurological: Normal speech Laboratory Data (last 24 hrs) 06/29/19 05:45: PT 19.8 H, INR 1.71, APTT 33.8 06/29/19 05:45: WBC 4.4, Hgb 9.6 L, Hct 29.4 L, Plt Count 334 06/29/19 05:45: Sodium 138, Potassium 4.4, BUN 47 H, Creatinine 3.43 H, Glucose 107 H, Total Bilirubin 0.5, AST 34, ALT 39, Alkaline Phosphatase 263 H Imagings Data: EXAM DESCRIPTION: RAD - Chest Single View - 06/29/2019 6:19 am CLINICAL HISTORY: DYSPNEA Chest pain. COMPARISON: Chest Single View dated 05/20/2019; Chest Single View dated 2018; Chest Single View dated 09/11/2018; Abdomen 1 View (KUB) dated 07/28/2017 FINDINGS: Portable technique limits examination quality. Mild bilateral pulmonary opacities are present likely representing pulmonary edema. The heart is enlarged sternotomy wires present. No displaced fractures.Dual lead pacer device is present. IMPRESSION: Mild CHF versus volume overload pattern. LEFT VENTRICULAR WALL MOTION: SEVERE GLOBAL HYPOKINESIS. DOPPLER/COLOR FLOW: MILD TO MODERATE MITRAL REGURGITATION. MILD TRICUSPID REGURGITATION. ESTIMATED RIGHT VENTRICULAR SYSTOLIC PRESSURE 48 mmHg. MILD TO MODERATE PULMONARY HYPERTENSION. NO AORTIC STENOSIS OR AORTIC REGURGITATION. COMMENTS: SEVERLY DEPRESSED LEFT VENTRICULAR EJECTION FRACTION. LEFT VENTRICULAR HYPERTROPHY. FOUR CHAMBER DILATATION. AORTIC SCLEROSIS WITH NO NO AORTIC STENOSIS OR AORTIC REGURGITATION. MILD TO MODERATE MITRAL REGURGITATION. MILD TRICUSPID REGURGITATION. MILD TO MODERATE PULMONARY HYPERTENSION. Conclusions/Impression: A/ YUDITH likely CRS. Hypocalcemia. CKD IV. YUE sp stent. Systolic CHF, A/C. Moderate malnutrition. Anemia in chronic illness. BPH with LUTS. P/ Continue current POC and Medications. Continue Lasix. Low sodium diet. Give Procrit. Check anemia labs. Start Vitamin D. No NSAIDs. AM labs. Daily weight.
--- NOTE | 2019-06-30 21:02 | PN ---
Mr. Varghese has diuresed nicely. He feels better. His overall situation is quite dire. He has a pa cemaker but not a defibrillator and with his ejection fraction in the 15% to 20% range, I think that should probably be changed. 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 The patien t is maintaining sinus rhythm. Has heart failure and renal failure, probably cannot tolerate Entrest o or a lot of the drugs we usually give for heart failure, so we will rely on diuretics and we know o f course diuretics may actually make the creatinine worse, renal function worse. I am concerned that Mr. Varghese may be a dialysis patient in the near future. VISHNU/DAWIT Voice ID: [id number] Report ID: [id number]
[2019-06-30 21:38] LABS: Folic Acid, (Folate) 13.9 ng/mL (3.1-17.5)
[2019-07-01 06:26] LABS: Magnesium 1.9 mg/dL (1.8-2.4); Potassium 3.8 mmol/L (3.5-5.1); Uric Acid 11.7 mg/dL (3.5-7.2)
[2019-07-01 08:01] LABS: Urine Appearance CLEAR; Urine Bilirubin NEGATIVE (NEG); Urine Blood NEGATIVE (NEG); Urine Color YELLOW; Urine Glucose NEGATIVE (NEG); Urine Protein NEGATIVE (NEG); Urine Specific Gravity 1.015 (1.005-1.030); Urine Urobilinogen 0.2 mg/dL (0.2-1.0)
[2019-07-01] MEDS: AMIODARONE HCL 200 MG TAB PO SCH (08:19)
[2019-07-01] MEDS: CALCITROL 0.25 MCG CAP PO SCH (08:19)
[2019-07-01] MEDS: APIXABAN 5 MG TABLET PO SCH ×2 (08:20→20:27)
[2019-07-01] MEDS: CLOPIDOGREL 75 MG TABLET PO SCH (08:20)
[2019-07-01] MEDS: FOLIC ACID 1 MG TABLET PO SCH (08:20)
[2019-07-01] MEDS: METOPROLOL TAR 25 MG TAB PO SCH ×2 (08:21→20:26)
[2019-07-01] MEDS: DOCOSAHEXANOIC AC/EPA 1000 MG PO SCH (08:22)
[2019-07-01] MEDS: TAMSULOSIN 0.4 MG SR CAP PO SCH (08:22)
[2019-07-01] MEDS: ASPIRIN EC 81 MG TAB PO SCH (08:23)
[2019-07-01] MEDS: PANTOPRAZOLE 40MG TABLET PO SCH (08:23)
[2019-07-01] MEDS: VITAMIN D 1000 UNIT TAB PO SCH (08:23)
[2019-07-01] MEDS: METOCLOPRAMIDE 5 MG TAB PO SCH ×3 (08:23→16:59)
[2019-07-01] MEDS: FUROSEMIDE 40 MG/4 ML VIAL IV SCH ×2 (08:24→20:33)
[2019-07-01 08:30] LABS: Urine Bacteria <20 /HPF (NONE SEEN); Urine Culture Reflex Order NOT NEEDED; Urine RBC <5 /HPF (NONE SEEN); Urine Urothelial Cells <5 /HPF (NONE SEEN)
[2019-07-01] MEDS ORDERED: POTASSIUM CL SA 10 MEQ TAB PO ONE (09:00)
--- NOTE | 2019-07-01 15:35 | PN ---
Mr. Varghese is doing much better. I think, we have reached the point where he can be discharged home . His medical problems are chronic and unfortunately very unlikely to improve. I think, he should b e discharged on Lasix 40 mg by mouth b.i.d. He will also take metoprolol 25 b.i.d. I do not think w e can give him any KATY inhibitor, angiotensin-receptor arely, or Entresto because of his renal dysf unction, and he can see me in followup. He has been instructed on 2-g sodium restriction, daily weig hts, and calling us. He is a patient who might benefit from cardiac rehab, but overall, we have reac hed the point of maximal hospital benefit for Mr. Varghese and he can be discharged home. VISHNU/DAWIT Voice ID: [id number] Report ID: [id number]
--- NOTE | 2019-07-01 15:37 | EKG ---
Test Date: 2019-07-01 Test Time: 13:54:00 Medical Education Coordinator: DANNA MEASUREMENT RESULTS: Intervals: Rate: 80 CO: 240 QRSD: 110 QT: 434 QTc: 500 [place]: P: CO: 240 QRS: 74 T: 147 INTERPRETIVE STATEMENTS: Electronic atrial pacemaker occasional PVC s Cannot rule out Anterior infarct, age undetermined Prolonged QT Abnormal ECG Compared to ECG 06/29/2019 05:38:23 Myocardial infarct finding now present Prolonged QT interval now present Ventricular-paced complex(es) or rhythm no longer present Electronically Signed On 07-01-19 15:37:38 CONTRACTS REPRESENTATIVE by Tyrel Mann
[2019-07-01] MEDS ORDERED: NA CHLORIDE 0.9% IV ONE (16:00)
[2019-07-01] MEDS ORDERED: NA CHLORIDE 0.9% IV SCH (17:00)
--- NOTE | 2019-07-01 18:54 | PN ---
Subjective: Currently, patient lying in bed. He looks comfortable. He has no abdominal pain. No n ausea, no vomiting. Continue to have lower extremity edema. Objective: Vital Signs: Blood pressure is 149/94, respiratory rate 17, pulse 79, temperature 98.5. General: Patient is alert and oriented x3. Does not look in any distress. HEENT: Atraumatic, normo cephalic. PERRLA. Oral mucosa is moist. Neck: Supple. No JVD. No carotid bruits. Chest: Clear to auscultation. Good air entry. Heart: Regular rate and rhythm. S1, S2 normal. No gallop or murmur. Abdomen: Soft, nontender with no hepatosplenomegaly. Positive bowel sounds. Extremities: No clubbing, cyanosis, but he has +2 edema. Neuro: Grossly intact. Cranial exam 2 through 12 intact. Normal sensation. Normal reflexes and no rmal muscle strength. Laboratory Data: Today, showed CBC was normal except for hemoglobin 8.4. Chemistry within normal ex cept for BUN of 44, creatinine 2.92. Uric acid is 11.7, iron of 42. BNP from yesterday 54,286. Assessment And Plan: This is a gentleman admitted with progressive shortness of breath. Found to hernández ve congestive heart failure exacerbation. 1.Systolic congestive heart failure exacerbation with pulmonary edema, lower extremity edema, EF of 15%. Continue Lasix and beta arely. Cardiology following. 2.Hyperuricemia. New uric acid at 11. Given renal insufficiency, I cannot give him a full dose of allopurinol so start him on 200 mg and will give him 1 dose of Rasburicase today, if not available in the hospital to obtain that from [place]. 3.Acute on chronic renal insufficiency, improved. Creatinine down to 2. Continue diuresis and Neph rology following. 4.Atrial fibrillation. Patient on Eliquis and amiodarone as well as metoprolol 25 mg b.i.d. 5.Coronary artery disease status post bypass surgery, on Plavix and statin. 6.Benign prostatic hypertrophy, on Flomax. 7.Anemia. The patient iron is low. We will check ferritin. His folate and B12 were normal. 8.Hyperlipidemia. Patient on statin. 9.Anemia of renal insufficiency. Patient on Procrit per Nephrology. 10.Insomnia. Patient on trazodone at nighttime. MT/MODL Voice ID: [id number] Report ID: [id number]
[2019-07-01 18:55] VITALS: O2SAT 98
[2019-07-01] MEDS: ATORVASTATIN 80 MG TAB PO SCH (20:25)
[2019-07-01] MEDS: EZETIMIBE 10 MG TAB PO SCH (20:26)
[2019-07-01] MEDS: TRAZODONE 50 MG TABLET PO SCH (20:26)
[2019-07-02 05:16] LABS: Absolute Lymphocytes (CBC) 0.9 K/uL (0.7-4.9); Basophils % 1.1 % (0-1.3); Hematocrit 26.7 % (39.6-49.0); Lymphocytes % 23.7 % (15.3-44.8); MPV 7.8 fL (7.6-11.3); RBC Red Blood Cell Count 2.92 M/uL (4.33-5.43)
[2019-07-02 06:41] LABS: Albumin 2.3 g/dL (3.4-5.0); Bilirubin Total 0.5 mg/dL (0.2-1.0); Potassium 3.9 mmol/L (3.5-5.1); Uric Acid 1.9 mg/dL (3.5-7.2)
[2019-07-02] MEDS: DOCOSAHEXANOIC AC/EPA 1000 MG PO SCH (09:00)
[2019-07-02] MEDS ORDERED: allopurinoL 100 MG TAB PO SCH (09:00)
[2019-07-02] MEDS: CALCITROL 0.25 MCG CAP PO SCH (09:05)
[2019-07-02] MEDS: VITAMIN D 1000 UNIT TAB PO SCH (09:05)
[2019-07-02] MEDS: PANTOPRAZOLE 40MG TABLET PO SCH (09:06)
[2019-07-02] MEDS: METOCLOPRAMIDE 5 MG TAB PO SCH ×2 (09:06→12:41)
[2019-07-02] MEDS: TAMSULOSIN 0.4 MG SR CAP PO SCH (09:06)
[2019-07-02] MEDS: AMIODARONE HCL 200 MG TAB PO SCH (09:06)
[2019-07-02] MEDS: CLOPIDOGREL 75 MG TABLET PO SCH (09:07)
[2019-07-02] MEDS: APIXABAN 5 MG TABLET PO SCH (09:07)
[2019-07-02] MEDS: ASPIRIN EC 81 MG TAB PO SCH (09:07)
[2019-07-02] MEDS: METOPROLOL TAR 25 MG TAB PO SCH (09:07)
[2019-07-02] MEDS: FOLIC ACID 1 MG TABLET PO SCH (09:07)
[2019-07-02] MEDS: FUROSEMIDE 40 MG/4 ML VIAL IV SCH (09:08)
--- NOTE | 2019-07-02 09:31 | PN ---
Date of Progress Note: 07/01/2019 Subjective: Patient is seen at the bedside. Patient feels well. Denies any fevers, chills, chest p ain, shortness of breath, nausea, vomiting, or diarrhea. Objective: Vital Signs: Blood pressure is 131/79, pulse 80, afebrile. Input and output 1850 in, 16 50 out. Yesterday patient was -1.4 L. General: No acute distress. Heart: Regular rate and rhythm. No murmurs, rubs, or gallops. Lungs: Decreased breath sounds at the bases. Abdomen: Soft, nontender, nondistended. Positive bowel sounds x4. Extremities: With 2+ edema. Laboratory Data: BUN 44, creatinine 2.92. Hemoglobin and hematocrit yesterday 8.4 and 25.6. Electr olyte balance today shows potassium 3.8, BUN 44, creatinine 2.92, calcium 8. Impression: 1.Acute systolic congestive heart failure. 2.Cardiorenal syndrome. 3.Hyperuricemia. 4.Atrial fibrillation. 5.Coronary artery disease. 6.Anemia. Plan: The patient is appears to be stabilizing from a respiratory standpoint in terms of his acute s ystolic congestive heart failure. Would continue with current dose of diuretics and avoid all NSAIDs . Avoid all contrast. Continue patient on a renal low-sodium diet. Note does mention, patient rece iving Rasburicase for hyperuricemia; however, it may be difficult to obtain that medication and Ulori c would be a valid option given the lack of need for dose adjustment of renal failure. We will continu e to follow. /DAWIT Voice ID: [id number] Report ID: [id number]
--- NOTE | 2019-07-02 10:15 | RAD REPORT ---
EXAM DESCRIPTION: RAD - Chest Pa And Lat (2 Views) - 07/02/2019 10:09 am CLINICAL HISTORY: chf COMPARISON: Chest Single View dated 06/30/2019 TECHNIQUE: Frontal and lateral views of the chest were obtained. FINDINGS: The lungs are normal volume. Interstitial opacification is present throughout the lung fie lds. Bilateral pleural effusions are present small in size. Cardiomegaly is present. Vasculature and central lung markings are prominent. Pacemaker is in place. No pneumothorax. IMPRESSION: CHF/volume overload mild in degree with no improvement since comparison study. .
--- NOTE | 2019-07-02 11:25 | PN ---
Mr. Varghese is in good shape this morning. He does have occasional episodes of chest pain without EK G changes. BUN and creatinine are better than when he came in. N-terminal BNP is better, so I think we are crisostomo to send Mr. Varghese home. He would be a very poor candidate for undergoing any other at tempts at revascularization. Using nitroglycerin for chest pain as needed is recommended and continu ing with the high dose Lasix that he is on is recommended. We will see him in the office within a fe w weeks of discharge. VISHNU/DAWIT Voice ID: [id number] Report ID: [id number]
--- NOTE | 2019-07-03 00:43 | DS ---
Date of Discharge: 07/02/2019 Discharge Diagnoses: 1.Systolic congestive heart failure exacerbation with pulmonary edema. 2.Hyperuricemia, resolved. 3.Acute on chronic renal insufficiency. 4.Atrial fibrillation. 5.Coronary artery disease. 6.Benign prostatic hypertrophy. 7.Anemia. 8.Hyperlipidemia. 9.Insomnia. Consult: Nephrology and Cardiology. Procedure: Echocardiogram done on the 13 showed severe depressed left ventricular ejection fraction with left ventricular hypertrophy, 4 chamber dilation, aortic sclerosis with no aortic stenosis or ao rtic regurgitation. [id number] mitral regurgitation. Mild tricuspid regurgitation. Mild-to-m oderate pulmonary hypertension. EF of 15%. Multiple chest x-rays done, last done this morning, show ed CHF, volume overload with no improvement since compression study. History Of Present Illness: Please refer to admission note. Hospital Course: Initially, the patient presented with progressive shortness of breath. He is found to be in acute systolic congestive heart failure with pulmonary edema on x-ray. Patient was started on IV diuretics with Lasix. Echocardiogram done showed severely reduced ejection fraction of 15%. The patient was maintained on Lasix 40 twice a day. His BNP was very high, but that in part because of his renal insufficiency. Upon discharge BNP went down from 55,000 to 37,000. The patient noted t o have a positive troponin at 0.24, peaked at 0.25. Cardiology consult requested and this showed the patient would be considered for cardiac cath and they advised to optimize his treatment with medicat ion. The patient has a band cutter at [place] and he stated he will seek a second opinion upon disc harge and he was done. I advised him strongly to avoid exertion in the meantime, continue nitroglyce rin p.r.n. The patient also had acute on chronic renal insufficiency. Nephrology consult requested and we are managing his renal and his creatinine upon discharge went down to 23. Of note yesterday, his uric acid was very high at 11.7. I started him on Rasburicase given his renal insufficiency and the low dose of allopurinol and his uric acid went down to 1.9 today. He continued to have anemia an d iron profile was consistent with anemia of chronic renal insufficiency. Patient was on Procrit. N ephrology will be discharged today in stable condition. Discharge Condition: Stable. Discharged Diet: Cardiac. Discharge Followup: With Cardiology next week. Follow up with the PCP next week. Also check his la bs and make sure his creatinine not any worse. Follow up with Nephrology as mentioned next week. Discharge Activity: As tolerated. Avoid exertion of course. Discharge Physical Examination: Vital Signs: Blood pressure is 129/66, respiratory rate 18, pulse 8 0, temperature 97.1, saturating 98% on room air. General: Patient is alert, oriented x3, does not look in any distress. HEENT: Atraumatic, normocephalic. PERRLA. Oral mucosa is moist. Neck: Supple. No JVD. No bruits. Chest: Clear to auscultation with fine crackles in the bases. Heart: Regular rate and rhythm. S1, S2 normal. No gallop or murmur. Abdomen: Soft, nontender. No masses. No hepatosplenomegaly. Positive bowel sounds. Extremities: No clubbing or cyanosis. A +2 edema still. Neuro: Grossly intact. Discharge Medications: Amiodarone 200 mg daily, Eliquis 5 mg twice a day, aspirin 81 mg daily, Lipit or 80 mg daily, calcitriol 0.25 mcg capsule 2 tabs orally daily, vitamin D 200 unit daily, Plavix 75 mg daily, Protonix 40 mg daily, Zetia 10 mg at bedtime, folic acid 0.4 mg daily, Lasix 40 mg twice a day, Reglan 5 mg t.i.d., metoprolol 25 mg twice a day, nitroglycerin as needed for pain, fish oil, Flomax 0.8 mg daily as before, and trazodone 50 mg at nighttime. SHANELLE/DAWIT Voice ID: [id number] Report ID: [id number]
[2019-07-03 07:15] VITALS: BP 160/70; TEMP 98
== END 2019-07-02 13:41 | disposition home or self-care (01) | DRG 291 ==
LOC: ER 05:24 → ERHOLD 07:21 → 2ND 08:48
PROVIDERS: ADMIT Hospitalist; ATTEND Hospitalist
PROC: 5A09357 Assistance with Respiratory Ventilation, Less than 24 Consecutive Hours, Continuous Positive Airway Pressure (ICD-10-PCS; principal; 2019-06-29)
DX: I13.0 Hypertensive heart and chronic kidney disease with heart failure and stage 1 through stage 4 chronic kidney disease, or unspecified chronic kidney disease (principal); I50.21 Acute systolic (congestive) heart failure; N17.9 Acute kidney failure, unspecified; E46 Unspecified protein-calorie malnutrition; N18.3 Chronic kidney disease, stage 3 (moderate); R06.03 Acute respiratory distress; E79.0 Hyperuricemia without signs of inflammatory arthritis and tophaceous disease; I48.91 Unspecified atrial fibrillation; I25.10 Atherosclerotic heart disease of native coronary artery without angina pectoris; N40.0 Benign prostatic hyperplasia without lower urinary tract symptoms; D64.9 Anemia, unspecified; E78.5 Hyperlipidemia, unspecified; G47.00 Insomnia, unspecified; Z68.28 Body mass index [BMI] 28.0-28.9, adult; Z95.5 Presence of coronary angioplasty implant and graft; Z95.1 Presence of aortocoronary bypass graft; Z95.0 Presence of cardiac pacemaker
CPT/HCPCS: 36415; 71045; 71046; 80048; 80053; 80076; 81001; 82553; 82607; 82728; 82746; 83540; 83735; 83880; 84100; 84300; 84466; 84484; 84550; 85025; 85610; 85730; 87040; 93005; 93306; 94660; 96374; 99285; J1650; J1940; J3475; J7030; Q4081

== ENCOUNTER 2019-07-11 14:29 | Inpatient (IN) | payer OTHER ==
[2019-07-11] MEDS ORDERED: PROMETHAZINE INJ 25 MG/ML AMP ONE (14:36)
--- OUTSIDE RECORDS SUMMARY | 2019-07-11 14:58 | XMS REPORT ---
:1945 [facility] Address [address] [place] [address] [address]. [address] [place] [address] Care Team Providers Name Role Phone LILLIANA [...] ID: VIEW, NON DEPT ACBShould this be [phone] TECHNIQUE: performed at the Frontal view of the chest. bedside?->Yes INDICATION: s/p ACB COMPARISON:Prior day. IMPRESSION:Lines and hardware: Stable.Heart and mediastinum: Stable.Lungs and pleura: No focal airspace consolidation. Right basilar atelectasis with small pleural effusion. Pulmonary vascular congestion with interstitial edema. No pneumothorax.Soft tissues and bones: No acute abnormality. Signed: Bolivar Miranda MDReport Verified Date/Time: 06/24/2019 10:50:49 Reading Location: [address] Consult Reading Room C METABOLIC PANEL 2019-06-24 06:59:00 Test Item Value Reference Range Comments SODIUM (BEAKER) (test 135 meq/L 136-145 nrgx=904) POTASSIUM (BEAKER) (test 4.5 meq/L 3.5-5.1 bdwy=962) CHLORIDE (BEAKER) (test 108 meq/L 98-107 jaae=064) CO2 (BEAKER) (test wplj=624) 20 meq/L 22-29 BLOOD UREA NITROGEN (BEAKER) 45 mg/dL 7-21 (test wpqo=307) CREATININE (BEAKER) (test 3.16 mg/dL 0.57-1.25 fqqq=037) GLUCOSE RANDOM (BEAKER) 89 mg/dL 70-105 (test octr=222) CALCIUM (BEAKER) (test 8.2 mg/dL 8.4-10.2 rrpn=192) EGFR (BEAKER) (test 20 mL/min/1.73 sq m ESTIMATED GFR IS NOT zpln=7657) ACCURATE CREATININE CLEARANCE IN PREDICTING GLOMERULAR FILTRATION RATE. ESTIMATED GFR IS NOT APPLICABLE FOR DIALYSIS PATIENTS. Reverse Logistics Analyst ID - MARISABEL [facility] W/PLT COUNT & AUTO [id number] 05:48:00 Test Item Value Reference Range Comments WHITE BLOOD CELL COUNT (BEAKER) (test kuhb=594) 4.6 K/ L 3.5-10.5 RED BLOOD CELL COUNT (BEAKER) (test lxkk=793) 2.67 M/ L 4.63-6.08 HEMOGLOBIN (BEAKER) (test wdyx=205) 8.0 GM/DL 13.7-17.5 HEMATOCRIT (BEAKER) (test thlt=029) 25.7 % 40.1-51.0 MEAN CORPUSCULAR VOLUME (BEAKER) (test lmje=407) 96.3 fL 79.0-92.2 MEAN CORPUSCULAR HEMOGLOBIN (BEAKER) (test 30.0 pg 25.7-32.2 lmcs=071) MEAN CORPUSCULAR HEMOGLOBIN CONC (BEAKER) (test 31.1 GM/DL 32.3-36.5 hoxd=405) RED CELL DISTRIBUTION WIDTH (BEAKER) (test 18.4 % 11.6-14.4 fevg=906) PLATELET COUNT (BEAKER) (test fovp=368) 353 K/CU MM 150-450 MEAN PLATELET VOLUME (BEAKER) (test yyyp=637) 9.3 fL 9.4-12.4 NUCLEATED RED BLOOD CELLS (BEAKER) (test 0 /100 WBC 0-0 koqf=022) NEUTROPHILS RELATIVE PERCENT (BEAKER) (test 62 % hjqe=645) LYMPHOCYTES RELATIVE PERCENT (BEAKER) (test 19 % caxl=163) MONOCYTES RELATIVE PERCENT (BEAKER) (test 10 % dqzp=581) EOSINOPHILS RELATIVE PERCENT (BEAKER) (test 8 % ovbz=383) BASOPHILS RELATIVE PERCENT (BEAKER) (test 1 % klgq=774) NEUTROPHILS ABSOLUTE COUNT (BEAKER) (test 2.83 K/ L 1.78-5.38 yabm=611) LYMPHOCYTES ABSOLUTE COUNT (BEAKER) (test 0.88 K/ L 1.32-3.57 yxfj=450) MONOCYTES ABSOLUTE COUNT (BEAKER) (test 0.47 K/ L 0.30-0.82 myro=027) EOSINOPHILS ABSOLUTE COUNT (BEAKER) (test 0.35 K/ L 0.04-0.54 ojfm=419) BASOPHILS ABSOLUTE COUNT (BEAKER) (test 0.04 K/ L 0.01-0.08 uaet=877) IMMATURE GRANULOCYTES-RELATIVE PERCENT (BEAKER) 0 % 0-1 (test dqog=2001) [id number] 15:09:00 Test Item Value Reference Range Comments ACTIVATED CLOTTING TIME 340 sec Reference Range: 74-137 (BEAKER) (test rhdc=702) seconds, Baseline/TESTED AT [place] [id number] 14:51:00 Test Item Value Reference Range Comments ACTIVATED CLOTTING TIME 296 sec Reference Range: 74-137 (BEAKER) (test kbck=578) seconds, Baseline/TESTED AT [address] [address] [id number] 14:51:00 Test Item Value Reference Range Comments ACTIVATED CLOTTING TIME 208 sec Reference Range: 74-137 (BEAKER) (test yers=389) seconds, Baseline/TESTED AT [address] [address] RAD, CHEST, 1 VIEW, NON [id number] 08:02:00Reason for exam:->s/p ACBShould this be performed [...] BURDICK MD on 2019 08:02 AMBASIC METABOLIC [id number] 07:14:00 Test Item Value Reference Range Comments SODIUM (BEAKER) (test 136 meq/L 136-145 upnu=617) POTASSIUM (BEAKER) (test 4.5 meq/L 3.5-5.1 Specimen slightly hwnt=798) hemolyzed CHLORIDE (BEAKER) (test 109 meq/L 98-107 pamq=591) CO2 (BEAKER) (test 19 meq/L 22-29 jlnd=620) BLOOD UREA NITROGEN 50 mg/dL 7-21 (BEAKER) (test anld=947) CREATININE (BEAKER) (test 3.37 mg/dL 0.57-1.25 Specimen slightly fvey=280) hemolyzed GLUCOSE RANDOM (BEAKER) 83 mg/dL 70-105 (test gswx=792) CALCIUM (BEAKER) (test 8.1 mg/dL 8.4-10.2 muqo=688) EGFR (BEAKER) (test 18 mL/min/1.73 sq m ESTIMATED GFR IS NOT kzkg=8611) ACCURATE CREATININE CLEARANCE IN PREDICTING GLOMERULAR FILTRATION RATE. ESTIMATED GFR IS NOT APPLICABLE FOR DIALYSIS PATIENTS. Reverse Logistics Analyst ID - MARISABEL [id number] 07:06:00 Test Item Value Reference Range Comments MAGNESIUM (BEAKER) (test 1.8 mg/dL 1.6-2.6 Specimen slightly hemolyzed fiee=581) Reverse Logistics Analyst ID - MARISABEL [id number] 07:06:00 Test Item Value Reference Range Comments PHOSPHORUS (BEAKER) (test 4.2 mg/dL 2.3-4.7 Specimen slightly hemolyzed ncsk=288) Reverse Logistics Analyst ID - MARISABEL [facility] W/PLT COUNT & AUTO [id number] 05:29:00 Test Item Value Reference Range Comments WHITE BLOOD CELL COUNT (BEAKER) (test ejkz=475) 4.2 K/ L 3.5-10.5 RED BLOOD CELL COUNT (BEAKER) (test cjjp=864) 2.64 M/ L 4.63-6.08 HEMOGLOBIN (BEAKER) (test excx=473) 8.1 GM/DL 13.7-17.5 HEMATOCRIT (BEAKER) (test hjrq=703) 25.3 % 40.1-51.0 MEAN CORPUSCULAR VOLUME (BEAKER) (test nsqk=669) 95.8 fL 79.0-92.2 MEAN CORPUSCULAR HEMOGLOBIN (BEAKER) (test 30.7 pg 25.7-32.2 hojo=816) MEAN CORPUSCULAR HEMOGLOBIN CONC (BEAKER) (test 32.0 GM/DL 32.3-36.5 qpkb=988) RED CELL DISTRIBUTION WIDTH (BEAKER) (test 18.2 % 11.6-14.4 kxvs=372) PLATELET COUNT (BEAKER) (test liep=856) 388 K/CU MM 150-450 MEAN PLATELET VOLUME (BEAKER) (test alyg=598) 9.5 fL 9.4-12.4 NUCLEATED RED BLOOD CELLS (BEAKER) (test 0 /100 WBC 0-0 kiro=535) NEUTROPHILS RELATIVE PERCENT (BEAKER) (test 56 % bywf=170) LYMPHOCYTES RELATIVE PERCENT (BEAKER) (test 24 % vssa=116) MONOCYTES RELATIVE PERCENT (BEAKER) (test 11 % duic=494) EOSINOPHILS RELATIVE PERCENT (BEAKER) (test 8 % xiha=245) BASOPHILS RELATIVE PERCENT (BEAKER) (test 1 % rieh=093) NEUTROPHILS ABSOLUTE COUNT (BEAKER) (test 2.34 K/ L 1.78-5.38 dtzq=385) LYMPHOCYTES ABSOLUTE COUNT (BEAKER) (test 1.00 K/ L 1.32-3.57 czdo=230) MONOCYTES ABSOLUTE COUNT (BEAKER) (test 0.45 K/ L 0.30-0.82 gean=932) EOSINOPHILS ABSOLUTE COUNT (BEAKER) (test 0.35 K/ L 0.04-0.54 vecf=917) BASOPHILS ABSOLUTE COUNT (BEAKER) (test 0.03 K/ L 0.01-0.08 qocc=029) IMMATURE GRANULOCYTES-RELATIVE PERCENT (BEAKER) 1 % 0-1 (test mscn=5228) RAD, CHEST, 1 VIEW, NON [id number] 07:58:00Reason for exam:->s/p ACBShould this be performed [...] Burdick Verified Date/Time: 06/22/2019 07:58:10 Reading Location: [facility] Radiology Reading Room BASIC METABOLIC [id number] 07:27:00 Test Item Value Reference Range Comments SODIUM (BEAKER) (test 135 meq/L 136-145 hgok=114) POTASSIUM (BEAKER) (test 4.6 meq/L 3.5-5.1 kkiq=095) CHLORIDE (BEAKER) (test 108 meq/L 98-107 ouxa=305) CO2 (BEAKER) (test 20 meq/L 22-29 mstl=761) BLOOD UREA NITROGEN 52 mg/dL 7-21 (BEAKER) (test kiof=203) CREATININE (BEAKER) (test 3.37 mg/dL 0.57-1.25 pfsa=667) GLUCOSE RANDOM (BEAKER) 91 mg/dL 70-105 (test alvc=123) CALCIUM (BEAKER) (test 8.3 mg/dL 8.4-10.2 lwlw=941) EGFR (BEAKER) (test 18 mL/min/1.73 sq m ESTIMATED GFR IS NOT xffr=0815) ACCURATE CREATININE CLEARANCE IN PREDICTING GLOMERULAR FILTRATION RATE. ESTIMATED GFR IS NOT APPLICABLE FOR DIALYSIS PATIENTS. Reverse Logistics Analyst ID - [id number] 07:08:00 Test Item Value Reference Range Comments PHOSPHORUS (BEAKER) (test ywtd=418) 4.0 mg/dL 2.3-4.7 Reverse Logistics Analyst ID - [id number] 07:08:00 Test Item Value Reference Range Comments MAGNESIUM (BEAKER) (test xafv=771) 2.0 mg/dL 1.6-2.6 Reverse Logistics Analyst ID - LMRAD, CHEST, 1 VIEW, NON [id number] 07:22:00Reason for exam:- >s/p ACBShould this be [...] RUIZeport Verified Date/Time: 06/21/2019 07:22:09 Reading Location: [address] Neuro Reading Room BASIC METABOLIC [id number] 06:23:00 Test Item Value Reference Range Comments SODIUM (BEAKER) (test 132 meq/L 136-145 jphg=190) POTASSIUM (BEAKER) (test 4.6 meq/L 3.5-5.1 yogv=765) CHLORIDE (BEAKER) (test 105 meq/L 98-107 uxaq=308) CO2 (BEAKER) (test 19 meq/L 22-29 jmcu=174) BLOOD UREA NITROGEN 56 mg/dL 7-21 (BEAKER) (test yock=512) CREATININE (BEAKER) (test 3.25 mg/dL 0.57-1.25 rtad=393) GLUCOSE RANDOM (BEAKER) 99 mg/dL 70-105 (test hoqk=888) CALCIUM (BEAKER) (test 8.3 mg/dL 8.4-10.2 yuyq=218) EGFR (BEAKER) (test 19 mL/min/1.73 sq m ESTIMATED GFR IS NOT hmne=8763) ACCURATE CREATININE CLEARANCE IN PREDICTING GLOMERULAR FILTRATION RATE. ESTIMATED GFR IS NOT APPLICABLE FOR DIALYSIS PATIENTS. Reverse Logistics Analyst ID - [id number] 06:18:00 Test Item Value Reference Range Comments PHOSPHORUS (BEAKER) (test ulfb=307) 4.0 mg/dL 2.3-4.7 Reverse Logistics Analyst ID - [id number] 06:18:00 Test Item Value Reference Range Comments MAGNESIUM (BEAKER) (test dqen=739) 2.0 mg/dL 1.6-2.6 Reverse Logistics Analyst ID - ASCBC W/PLT COUNT & AUTO [id number] 05:59:00 Test Item Value Reference Range Comments WHITE BLOOD CELL COUNT (BEAKER) (test gvuf=034) 4.7 K/ L 3.5-10.5 RED BLOOD CELL COUNT (BEAKER) (test ukal=061) 2.70 M/ L 4.63-6.08 HEMOGLOBIN (BEAKER) (test pgaq=046) 8.1 GM/DL 13.7-17.5 HEMATOCRIT (BEAKER) (test ofso=233) 25.2 % 40.1-51.0 MEAN CORPUSCULAR VOLUME (BEAKER) (test ezwq=139) 93.3 fL 79.0-92.2 MEAN CORPUSCULAR HEMOGLOBIN (BEAKER) (test 30.0 pg 25.7-32.2 nkwf=891) MEAN CORPUSCULAR HEMOGLOBIN CONC (BEAKER) (test 32.1 GM/DL 32.3-36.5 gxun=249) RED CELL DISTRIBUTION WIDTH (BEAKER) (test 17.7 % 11.6-14.4 fjpc=048) PLATELET COUNT (BEAKER) (test dxqj=061) 380 K/CU MM 150-450 MEAN PLATELET VOLUME (BEAKER) (test dnsd=539) 9.7 fL 9.4-12.4 NUCLEATED RED BLOOD CELLS (BEAKER) (test 0 /100 WBC 0-0 kjqm=554) NEUTROPHILS RELATIVE PERCENT (BEAKER) (test 68 % vzwa=852) LYMPHOCYTES RELATIVE PERCENT (BEAKER) (test 16 % twgt=880) MONOCYTES RELATIVE PERCENT (BEAKER) (test 10 % wxno=032) EOSINOPHILS RELATIVE PERCENT (BEAKER) (test 6 % lbkg=595) BASOPHILS RELATIVE PERCENT (BEAKER) (test 1 % xmbp=916) NEUTROPHILS ABSOLUTE COUNT (BEAKER) (test 3.14 K/ L 1.78-5.38 poxg=727) LYMPHOCYTES ABSOLUTE COUNT (BEAKER) (test 0.75 K/ L 1.32-3.57 nxeq=935) MONOCYTES ABSOLUTE COUNT (BEAKER) (test 0.45 K/ L 0.30-0.82 pvtg=815) EOSINOPHILS ABSOLUTE COUNT (BEAKER) (test 0.26 K/ L 0.04-0.54 usfq=324) BASOPHILS ABSOLUTE COUNT (BEAKER) (test 0.03 K/ L 0.01-0.08 pfds=604) IMMATURE GRANULOCYTES-RELATIVE PERCENT (BEAKER) 0 % 0-1 (test erdw=1497) RAD, CHEST, 1 VIEW, NON [id number] 07:56:00Reason for exam:->s/p ACBShould this be performed [...] MDReport Verified Date/Time: 06/20/2019 07:56:57 Reading Location: [facility] Radiology Reading Room CBC W/PLT COUNT & AUTO [id number] 06:26:00 Test Item Value Reference Range Comments WHITE BLOOD CELL COUNT (BEAKER) (test ljrd=363) 4.3 K/ L 3.5-10.5 RED BLOOD CELL COUNT (BEAKER) (test oowe=065) 2.48 M/ L 4.63-6.08 HEMOGLOBIN (BEAKER) (test qadb=261) 7.4 GM/DL 13.7-17.5 HEMATOCRIT (BEAKER) (test nxmb=672) 23.6 % 40.1-51.0 MEAN CORPUSCULAR VOLUME (BEAKER) (test jhwf=779) 95.2 fL 79.0-92.2 MEAN CORPUSCULAR HEMOGLOBIN (BEAKER) (test 29.8 pg 25.7-32.2 rviu=242) MEAN CORPUSCULAR HEMOGLOBIN CONC (BEAKER) (test 31.4 GM/DL 32.3-36.5 xuhn=330) RED CELL DISTRIBUTION WIDTH (BEAKER) (test 17.7 % 11.6-14.4 sjdn=679) PLATELET COUNT (BEAKER) (test evii=509) 327 K/CU MM 150-450 MEAN PLATELET VOLUME (BEAKER) (test pgjc=933) 9.6 fL 9.4-12.4 NUCLEATED RED BLOOD CELLS (BEAKER) (test 0 /100 WBC 0-0 rjcz=959) NEUTROPHILS RELATIVE PERCENT (BEAKER) (test 62 % rqov=126) LYMPHOCYTES RELATIVE PERCENT (BEAKER) (test 19 % jbam=980) MONOCYTES RELATIVE PERCENT (BEAKER) (test 12 % ttfn=727) EOSINOPHILS RELATIVE PERCENT (BEAKER) (test 6 % xxjv=569) BASOPHILS RELATIVE PERCENT (BEAKER) (test 1 % wdge=461) NEUTROPHILS ABSOLUTE COUNT (BEAKER) (test 2.65 K/ L 1.78-5.38 kxip=385) LYMPHOCYTES ABSOLUTE COUNT (BEAKER) (test 0.79 K/ L 1.32-3.57 hkff=232) MONOCYTES ABSOLUTE COUNT (BEAKER) (test 0.51 K/ L 0.30-0.82 vlpg=434) EOSINOPHILS ABSOLUTE COUNT (BEAKER) (test 0.27 K/ L 0.04-0.54 knsh=269) BASOPHILS ABSOLUTE COUNT (BEAKER) (test 0.03 K/ L 0.01-0.08 almx=315) IMMATURE GRANULOCYTES-RELATIVE PERCENT (BEAKER) 1 % 0-1 (test vsyl=7274) BASIC METABOLIC [id number] 05:59:00 Test Item Value Reference Range Comments SODIUM (BEAKER) (test 133 meq/L 136-145 vayz=529) POTASSIUM (BEAKER) (test 4.6 meq/L 3.5-5.1 nqdv=161) CHLORIDE (BEAKER) (test 105 meq/L 98-107 srqk=744) CO2 (BEAKER) (test 21 meq/L 22-29 ekfw=378) BLOOD UREA NITROGEN 55 mg/dL 7-21 (BEAKER) (test dlyg=188) CREATININE (BEAKER) (test 3.34 mg/dL 0.57-1.25 yihf=579) GLUCOSE RANDOM (BEAKER) 91 mg/dL 70-105 (test hmrb=638) CALCIUM (BEAKER) (test 8.1 mg/dL 8.4-10.2 msve=944) EGFR (BEAKER) (test 18 mL/min/1.73 sq m ESTIMATED GFR IS NOT xhjy=9254) ACCURATE CREATININE CLEARANCE IN PREDICTING GLOMERULAR FILTRATION RATE. ESTIMATED GFR IS NOT APPLICABLE FOR DIALYSIS PATIENTS. Reverse Logistics Analyst ID - MARISABEL [id number] 05:56:00 Test Item Value Reference Range Comments PHOSPHORUS (BEAKER) (test iyqw=265) 4.0 mg/dL 2.3-4.7 Reverse Logistics Analyst ID - MARISABEL [id number] 05:56:00 Test Item Value Reference Range Comments MAGNESIUM (BEAKER) (test unhf=836) 2.0 mg/dL 1.6-2.6 Reverse Logistics Analyst ID - MARISABEL MRAD, CHEST, 1 VIEW, NON [id number] 08:24:00Reason for exam:->s/p ACBShould this be performed [...] Burd[place]keport Verified Date/Time: 06/19/2019 08:24:44 Reading Location: [facility] Radiology Reading Room BASIC METABOLIC [id number] 07:44:00 Test Item Value Reference Range Comments SODIUM (BEAKER) (test 131 meq/L 136-145 nudy=193) POTASSIUM (BEAKER) (test 4.5 meq/L 3.5-5.1 wwbn=474) CHLORIDE (BEAKER) (test 103 meq/L 98-107 nyic=205) CO2 (BEAKER) (test 21 meq/L 22-29 howi=033) BLOOD UREA NITROGEN 56 mg/dL 7-21 (BEAKER) (test ckqz=016) CREATININE (BEAKER) (test 3.37 mg/dL 0.57-1.25 qxpe=348) GLUCOSE RANDOM (BEAKER) 91 mg/dL 70-105 (test rham=436) CALCIUM (BEAKER) (test 8.1 mg/dL 8.4-10.2 egmr=198) EGFR (BEAKER) (test 18 mL/min/1.73 sq m ESTIMATED GFR IS NOT gkur=9418) ACCURATE CREATININE CLEARANCE IN PREDICTING GLOMERULAR FILTRATION RATE. ESTIMATED GFR IS NOT APPLICABLE FOR DIALYSIS PATIENTS. Reverse Logistics Analyst ID - MELLY [id number] 07:43:00 Test Item Value Reference Range Comments PHOSPHORUS (BEAKER) (test rsdd=313) 4.3 mg/dL 2.3-4.7 Reverse Logistics Analyst ID - MELLY [id number] 07:43:00 Test Item Value Reference Range Comments MAGNESIUM (BEAKER) (test puji=021) 2.1 mg/dL 1.6-2.6 Reverse Logistics Analyst ID - MELLY FCBC W/PLT COUNT & AUTO [id number] 06:41: 00 Test Item Value Reference Range Comments WHITE BLOOD CELL COUNT (BEAKER) (test nzdl=824) 4.3 K/ L 3.5-10.5 RED BLOOD CELL COUNT (BEAKER) (test bwoy=954) 2.58 M/ L 4.63-6.08 HEMOGLOBIN (BEAKER) (test htpq=387) 7.6 GM/DL 13.7-17.5 HEMATOCRIT (BEAKER) (test szik=047) 24.0 % 40.1-51.0 MEAN CORPUSCULAR VOLUME (BEAKER) (test xgcy=134) 93.0 fL 79.0-92.2 MEAN CORPUSCULAR HEMOGLOBIN (BEAKER) (test 29.5 pg 25.7-32.2 dmgt=899) MEAN CORPUSCULAR HEMOGLOBIN CONC (BEAKER) (test 31.7 GM/DL 32.3-36.5 bvph=637) RED CELL DISTRIBUTION WIDTH (BEAKER) (test 17.7 % 11.6-14.4 omfq=598) PLATELET COUNT (BEAKER) (test jzbi=513) 328 K/CU MM 150-450 MEAN PLATELET VOLUME (BEAKER) (test gmam=639) 9.8 fL 9.4-12.4 NUCLEATED RED BLOOD CELLS (BEAKER) (test 0 /100 WBC 0-0 tzex=158) NEUTROPHILS RELATIVE PERCENT (BEAKER) (test 60 % bpit=388) LYMPHOCYTES RELATIVE PERCENT (BEAKER) (test 19 % qdwz=860) MONOCYTES RELATIVE PERCENT (BEAKER) (test 12 % mbag=429) EOSINOPHILS RELATIVE PERCENT (BEAKER) (test 7 % lxyh=331) BASOPHILS RELATIVE PERCENT (BEAKER) (test 1 % psea=134) NEUTROPHILS ABSOLUTE COUNT (BEAKER) (test 2.57 K/ L 1.78-5.38 nrvd=236) LYMPHOCYTES ABSOLUTE COUNT (BEAKER) (test 0.83 K/ L 1.32-3.57 vwbo=929) MONOCYTES ABSOLUTE COUNT (BEAKER) (test 0.53 K/ L 0.30-0.82 jfkz=713) EOSINOPHILS ABSOLUTE COUNT (BEAKER) (test 0.29 K/ L 0.04-0.54 fvcg=561) BASOPHILS ABSOLUTE COUNT (BEAKER) (test 0.03 K/ L 0.01-0.08 vyvv=866) IMMATURE GRANULOCYTES-RELATIVE PERCENT (BEAKER) 1 % 0-1 (test bngo=7081) OXYGEN SATURATION, [id number] 06:39:00 Test Item Value Reference Range Comments O2 SATURATION (MEASURED) (BEAKER) (test gtcq=5490) 68.6 % CALCIUM, [id number] 06:39:00 Test Item Value Reference Range Comments CALCIUM IONIZED (BEAKER) (test stxe=587) 1.13 mmol/L 1.12-1.27 PH, BLOOD (BEAKER) (test nbox=5718) 7.40 RAD, CHEST, 1 VIEW, NON [id number] 09:49:00Reason for exam:->s/p ACBShould this be performed at the bedside?->YesFINAL REPORT TECHNIQUE: Single view of the chest. COMPARISON: 06/17/2019 FINDINGS: Bilateral patchy interstitial and airspace opacities are stable. There are bilateral trace pleural effusions. No gross pneumothorax.No gross new lung parenchymal changes. Support lines and tubes are stable. IMPRESSION: 1. No significant interval change. Signed: Sarath Randhawa Verified Date/Time: 06/18/2019 09:49:04 Reading Location: [address] Reading Room BASIC METABOLIC [id number] 04:36:00 Test Item Value Reference Range Comments SODIUM (BEAKER) (test 129 meq/L 136-145 twom=778) POTASSIUM (BEAKER) (test 4.5 meq/L 3.5-5.1 hfsu=721) CHLORIDE (BEAKER) (test 101 meq/L 98-107 maee=958) CO2 (BEAKER) (test 19 meq/L 22-29 zeee=635) BLOOD UREA NITROGEN 51 mg/dL 7-21 (BEAKER) (test kzmo=742) CREATININE (BEAKER) (test 3.15 mg/dL 0.57-1.25 zvvu=487) GLUCOSE RANDOM (BEAKER) 97 mg/dL 70-105 (test cqjt=298) CALCIUM (BEAKER) (test 8.2 mg/dL 8.4-10.2 ngcb=613) EGFR (BEAKER) (test 20 mL/min/1.73 sq m ESTIMATED GFR IS NOT ucpb=2782) ACCURATE CREATININE CLEARANCE IN PREDICTING GLOMERULAR FILTRATION RATE. ESTIMATED GFR IS NOT APPLICABLE FOR DIALYSIS PATIENTS. Reverse Logistics Analyst ID Sharmila GRIJALVA [id number] 04:27:00 Test Item Value Reference Range Comments PHOSPHORUS (BEAKER) (test jxdp=856) 4.6 mg/dL 2.3-4.7 Reverse Logistics Analyst ID - RUDI [id number] 04:27:00 Test Item Value Reference Range Comments MAGNESIUM (BEAKER) (test ypkd=652) 2.2 mg/dL 1.6-2.6 Reverse Logistics Analyst ID - RUDI LOXYGEN SATURATION, [id number] 04:05:00 Test Item Value Reference Range Comments O2 SATURATION (MEASURED) (BEAKER) (test nnxu=5082) 68.1 % CBC W/PLT COUNT & AUTO [id number] 04:01:00 Test Item Value Reference Range Comments WHITE BLOOD CELL COUNT (BEAKER) (test uweu=638) 3.7 K/ L 3.5-10.5 RED BLOOD CELL COUNT (BEAKER) (test nqdr=849) 2.72 M/ L 4.63-6.08 HEMOGLOBIN (BEAKER) (test sdwt=796) 8.0 GM/DL 13.7-17.5 HEMATOCRIT (BEAKER) (test uala=252) 24.9 % 40.1-51.0 MEAN CORPUSCULAR VOLUME (BEAKER) (test hdgz=646) 91.5 fL 79.0-92.2 MEAN CORPUSCULAR HEMOGLOBIN (BEAKER) (test 29.4 pg 25.7-32.2 gkyb=648) MEAN CORPUSCULAR HEMOGLOBIN CONC (BEAKER) (test 32.1 GM/DL 32.3-36.5 gwle=065) RED CELL DISTRIBUTION WIDTH (BEAKER) (test 17.3 % 11.6-14.4 pmok=140) PLATELET COUNT (BEAKER) (test ipij=987) 327 K/CU MM 150-450 MEAN PLATELET VOLUME (BEAKER) (test vufr=191) 9.4 fL 9.4-12.4 NUCLEATED RED BLOOD CELLS (BEAKER) (test 0 /100 WBC 0-0 ugcb=287) NEUTROPHILS RELATIVE PERCENT (BEAKER) (test 58 % ghrp=498) LYMPHOCYTES RELATIVE PERCENT (BEAKER) (test 20 % kgdv=211) MONOCYTES RELATIVE PERCENT (BEAKER) (test 14 % eakh=828) EOSINOPHILS RELATIVE PERCENT (BEAKER) (test 8 % usbh=377) BASOPHILS RELATIVE PERCENT (BEAKER) (test 1 % uaxo=469) NEUTROPHILS ABSOLUTE COUNT (BEAKER) (test 2.18 K/ L 1.78-5.38 xtgw=395) LYMPHOCYTES ABSOLUTE COUNT (BEAKER) (test 0.73 K/ L 1.32-3.57 esva=740) MONOCYTES ABSOLUTE COUNT (BEAKER) (test 0.52 K/ L 0.30-0.82 oujn=831) EOSINOPHILS ABSOLUTE COUNT (BEAKER) (test 0.28 K/ L 0.04-0.54 lwoj=727) BASOPHILS ABSOLUTE COUNT (BEAKER) (test 0.02 K/ L 0.01-0.08 ejwc=325) IMMATURE GRANULOCYTES-RELATIVE PERCENT (BEAKER) 0 % 0-1 (test bosi=5032) [id number] 00:13:00 Test Item Value Reference Range Comments POTASSIUM (BEAKER) (test mdvf=793) 4.7 meq/L 3.5-5.1 Reverse Logistics Analyst ID - [id number] 00:13:00 Test Item Value Reference Range Comments MAGNESIUM (BEAKER) (test pwbr=743) 2.2 mg/dL 1.6-2.6 Reverse Logistics Analyst ID - DBPOCT-GLUCOSE [id number] 21:59:00 Test Item Value Reference Range Comments POC-GLUCOSE METER (BEAKER) 104 mg/dL 70-110 : TESTED AT [facility] [address] [facility] (test rflp=6171) [facility], [id number]: Reverse Logistics Analyst/Computer Technology Teacher [id number] for MOHINI THURMAN POCT-GLUCOSE [id number] 18:19:00 Test Item Value Reference Range Comments POC-GLUCOSE METER (BEAKER) 125 mg/dL 70-110 : TESTED AT [facility] [address] [facility] (test kjip=9635) [facility], [id number]: Reverse Logistics Analyst/Computer Technology Teacher [id number] for LINDA HOLLIDAY BASIC METABOLIC [id number] 14:09:00 Test Item Value Reference Range Comments SODIUM (BEAKER) (test 127 meq/L 136-145 zgmb=200) POTASSIUM (BEAKER) (test 4.6 meq/L 3.5-5.1 Specimen slightly imkj=060) hemolyzed CHLORIDE (BEAKER) (test 99 meq/L 98-107 fnyd=004) CO2 (BEAKER) (test 18 meq/L 22-29 bdqz=949) BLOOD UREA NITROGEN 56 mg/dL 7-21 (BEAKER) (test mxty=268) CREATININE (BEAKER) (test 3.18 mg/dL 0.57-1.25 Specimen slightly flzb=941) hemolyzed GLUCOSE RANDOM (BEAKER) 136 mg/dL 70-105 (test gulj=494) CALCIUM (BEAKER) (test 8.0 mg/dL 8.4-10.2 xnal=182) EGFR (BEAKER) (test 19 mL/min/1.73 sq m ESTIMATED GFR IS NOT cohr=9600) ACCURATE CREATININE CLEARANCE IN PREDICTING GLOMERULAR FILTRATION RATE. ESTIMATED GFR IS NOT APPLICABLE FOR DIALYSIS PATIENTS. Reverse Logistics Analyst ID - RUDI [id number] 14:07:00 Test Item Value Reference Range Comments MAGNESIUM (BEAKER) (test 2.3 mg/dL 1.6-2.6 Specimen slightly hemolyzed tjeq=724) Reverse Logistics Analyst ID - RUDI LOXYGEN SATURATION, [id number] 13:47:00 Test Item Value Reference Range Comments O2 SATURATION (MEASURED) (BEAKER) (test tujx=7287) 55.7 % POCT-GLUCOSE [id number] 12:04:00 Test Item Value Reference Range Comments POC-GLUCOSE METER (BEAKER) 99 mg/dL 70-110 : TESTED AT [facility] [address] (test lbgu=1949) [facility], [id number]: Reverse Logistics Analyst/Computer Technology Teacher AT=[id number] for [facility], CHEST, 1 VIEW, NON [id number] 07:28:00Reason for exam:->s/p ACBShould this be performed [...] Burdick Verified Date/Time: 06/17/2019 07:28:33 Reading Location: [address] Neuro Reading Room OXYGEN SATURATION, [id number] 06:45:00 Test Item Value Reference Range Comments O2 SATURATION (MEASURED) (BEAKER) (test uzua=2269) 62.2 % [id number] 04:54:00 Test Item Value Reference Range Comments CORTISOL, TOTAL (BEAKER) (test pmph=5299) 14.7 ug/dL 3.7-19.4 Reverse Logistics Analyst ID - PIAYA LBASIC METABOLIC [id number] 04:52:00 Test Item Value Reference Range Comments SODIUM (BEAKER) (test 131 meq/L 136-145 jpbn=008) POTASSIUM (BEAKER) (test 4.3 meq/L 3.5-5.1 jwup=181) CHLORIDE (BEAKER) (test 105 meq/L 98-107 bfqe=152) CO2 (BEAKER) (test 18 meq/L 22-29 rstk=219) BLOOD UREA NITROGEN 53 mg/dL 7-21 (BEAKER) (test rztw=199) CREATININE (BEAKER) (test 2.80 mg/dL 0.57-1.25 gevs=186) GLUCOSE RANDOM (BEAKER) 114 mg/dL 70-105 (test ohgw=894) CALCIUM (BEAKER) (test 7.7 mg/dL 8.4-10.2 fovq=401) EGFR (BEAKER) (test 22 mL/min/1.73 sq m ESTIMATED GFR IS NOT qxun=6882) ACCURATE CREATININE CLEARANCE IN PREDICTING GLOMERULAR FILTRATION RATE. ESTIMATED GFR IS NOT APPLICABLE FOR DIALYSIS PATIENTS. Reverse Logistics Analyst ID - RUDI [id number] 04:49:00 Test Item Value Reference Range Comments PHOSPHORUS (BEAKER) (test vpcm=555) 4.5 mg/dL 2.3-4.7 Reverse Logistics Analyst ID - RUDI [id number] 04:49:00 Test Item Value Reference Range Comments MAGNESIUM (BEAKER) (test zknv=526) 2.0 mg/dL 1.6-2.6 Reverse Logistics Analyst ID - RUDI LLACTATE DEHYDROGENASE (LDH)2019-06-17 04:49:00 Test Item Value Reference Range Comments LACTATE DEHYDROGENASE (BEAKER) (test mxue=567) 572 U/L 125-220 Reverse Logistics Analyst ID - RUDI LOXYGEN SATURATION, [id number] 04:37:00 Test Item Value Reference Range Comments O2 SATURATION (MEASURED) (BEAKER) (test autw=0907) 45.2 % CBC W/PLT COUNT & AUTO [id number] 04:26:00 Test Item Value Reference Range Comments WHITE BLOOD CELL COUNT (BEAKER) (test pwkm=397) 3.8 K/ L 3.5-10.5 RED BLOOD CELL COUNT (BEAKER) (test rrxm=837) 2.80 M/ L 4.63-6.08 HEMOGLOBIN (BEAKER) (test kyat=335) 8.1 GM/DL 13.7-17.5 HEMATOCRIT (BEAKER) (test haub=336) 25.8 % 40.1-51.0 MEAN CORPUSCULAR VOLUME (BEAKER) (test uqqn=895) 92.1 fL 79.0-92.2 MEAN CORPUSCULAR HEMOGLOBIN (BEAKER) (test 28.9 pg 25.7-32.2 rpgv=533) MEAN CORPUSCULAR HEMOGLOBIN CONC (BEAKER) (test 31.4 GM/DL 32.3-36.5 sbcp=894) RED CELL DISTRIBUTION WIDTH (BEAKER) (test 17.1 % 11.6-14.4 vbuf=430) PLATELET COUNT (BEAKER) (test opeh=121) 310 K/CU MM 150-450 MEAN PLATELET VOLUME (BEAKER) (test yubx=261) 9.3 fL 9.4-12.4 NUCLEATED RED BLOOD CELLS (BEAKER) (test 0 /100 WBC 0-0 owpm=936) NEUTROPHILS RELATIVE PERCENT (BEAKER) (test 61 % llmi=345) LYMPHOCYTES RELATIVE PERCENT (BEAKER) (test 15 % pucf=790) MONOCYTES RELATIVE PERCENT (BEAKER) (test 14 % rxaz=133) EOSINOPHILS RELATIVE PERCENT (BEAKER) (test 9 % jtia=058) BASOPHILS RELATIVE PERCENT (BEAKER) (test 1 % ayip=870) NEUTROPHILS ABSOLUTE COUNT (BEAKER) (test 2.28 K/ L 1.78-5.38 thcu=326) LYMPHOCYTES ABSOLUTE COUNT (BEAKER) (test 0.55 K/ L 1.32-3.57 gtit=331) MONOCYTES ABSOLUTE COUNT (BEAKER) (test 0.52 K/ L 0.30-0.82 iwct=691) EOSINOPHILS ABSOLUTE COUNT (BEAKER) (test 0.35 K/ L 0.04-0.54 ffse=424) BASOPHILS ABSOLUTE COUNT (BEAKER) (test 0.03 K/ L 0.01-0.08 jkqk=493) IMMATURE GRANULOCYTES-RELATIVE PERCENT (BEAKER) 1 % 0-1 (test ytfn=2953) POCT-GLUCOSE [id number] 22:24:00 Test Item Value Reference Range Comments POC-GLUCOSE METER (BEAKER) 109 mg/dL 70-110 : TESTED AT [facility] [address] [facility] (test wquo=0665) [facility], [address]: Reverse Logistics Analyst/Computer Technology Teacher [id number] for MOHINI THURMAN [id number] 21:06:00 Test Item Value Reference Range Comments MAGNESIUM (BEAKER) (test hizi=994) 2.1 mg/dL 1.6-2.6 Reverse Logistics Analyst ID [facility] [id number] 18:01:00 Test Item Value Reference Range Comments SODIUM (BEAKER) (test 129 meq/L 136-145 hzfl=448) POTASSIUM (BEAKER) (test 5.0 meq/L 3.5-5.1 pbye=749) CHLORIDE (BEAKER) (test 101 meq/L 98-107 nfpv=768) CO2 (BEAKER) (test 17 meq/L 22-29 btgk=416) BLOOD UREA NITROGEN 60 mg/dL 7-21 (BEAKER) (test ssyt=509) CREATININE (BEAKER) (test 3.19 mg/dL 0.57-1.25 nfiy=498) GLUCOSE RANDOM (BEAKER) 116 mg/dL 70-105 (test djie=933) CALCIUM (BEAKER) (test 8.2 mg/dL 8.4-10.2 tvrg=542) EGFR (BEAKER) (test 19 mL/min/1.73 sq m ESTIMATED GFR IS NOT uqcd=8390) ACCURATE CREATININE CLEARANCE IN PREDICTING GLOMERULAR FILTRATION RATE. ESTIMATED GFR IS NOT APPLICABLE FOR DIALYSIS PATIENTS. Reverse Logistics Analyst ID - DBPOCT-GLUCOSE [id number] 17:48:00 Test Item Value Reference Range Comments POC-GLUCOSE METER (BEAKER) 121 mg/dL 70-110 : Notified RN/MD: TESTED AT (test vije=2961) [address], [address]: Reverse Logistics Analyst/Computer Technology Teacher [id number] for THERESA, JUANIS [id number] 14:24:00 Test Item Value Reference Range Comments POTASSIUM (BEAKER) (test mshi=751) 4.8 meq/L 3.5-5.1 Reverse Logistics Analyst ID - RUDI [id number] 14:24:00 Test Item Value Reference Range Comments MAGNESIUM (BEAKER) (test gbvt=971) 2.3 mg/dL 1.6-2.6 Reverse Logistics Analyst ID - PIAYA LPOCT-GLUCOSE [id number] 13:22:00 Test Item Value Reference Range Comments POC-GLUCOSE METER (BEAKER) 103 mg/dL 70-110 : Notified RN/MD: TESTED AT (test rima=5408) [address], [address]: Reverse Logistics Analyst/Computer Technology Teacher [phone]=[id number] for PHINISEE, JUANIS OXYGEN SATURATION, [id number] 13:16:00 Test Item Value Reference Range Comments O2 SATURATION (MEASURED) (BEAKER) (test bpts=8892) 64.5 % POCT-GLUCOSE [id number] 08:19:00 Test Item Value Reference Range Comments POC-GLUCOSE METER (BEAKER) 107 mg/dL 70-110 : Notified RN/MD: TESTED AT (test pfah=8476) [facility] [address] [facility], [address]: Reverse Logistics Analyst/Computer Technology Teacher [id number] for JUANIS CARDENAS RAD, CHEST, 1 VIEW, NON [id number] 07:03:00Reason for exam:->s/p ACBShould this be performed at the bedside?->YesFINAL REPORT RAD, CHEST, 1 VIEW, NON DEPT INDICATION: s/p ACB COMPARISON: Prior day' s exam FINDINGS: Portable frontal view of the chest. IMPRESSION: Support Lines: Right IJ Buena-Allison catheter has been removed. PICC again noted to terminate in the subclavian region. Lungs and pleura: No significant change in the interstitial markings or small effusions. No pneumothorax.Heart and mediastinum: Stable contours. Stable surgical changes.Additional findings: None. Signed: JR Mckeon Robert MDReport Verified Date/Time: 06/16/2019 07:03:33 Reading Location: [facility] Radiology Reading Room OXYGEN SATURATION, [id number] 06:36:00 Test Item Value Reference Range Comments O2 SATURATION (MEASURED) (BEAKER) (test bbnq=9494) 59.7 % BASIC METABOLIC [id number] 05:38:00 Test Item Value Reference Range Comments SODIUM (BEAKER) (test 129 meq/L 136-145 fmes=367) POTASSIUM (BEAKER) (test 4.9 meq/L 3.5-5.1 fpwd=952) CHLORIDE (BEAKER) (test 102 meq/L 98-107 yjqq=799) CO2 (BEAKER) (test 20 meq/L 22-29 ftrr=857) BLOOD UREA NITROGEN 61 mg/dL 7-21 (BEAKER) (test dhrr=994) CREATININE (BEAKER) (test 3.07 mg/dL 0.57-1.25 gnsx=308) GLUCOSE RANDOM (BEAKER) 105 mg/dL 70-105 (test copw=598) CALCIUM (BEAKER) (test 8.3 mg/dL 8.4-10.2 nbjc=780) EGFR (BEAKER) (test 20 mL/min/1.73 sq m ESTIMATED GFR IS NOT curc=9062) ACCURATE CREATININE CLEARANCE IN PREDICTING GLOMERULAR FILTRATION RATE. ESTIMATED GFR IS NOT APPLICABLE FOR DIALYSIS PATIENTS. Reverse Logistics Analyst ID - FREDERICK [id number] 05:34:00 Test Item Value Reference Range Comments PHOSPHORUS (BEAKER) (test rwgj=062) 5.1 mg/dL 2.3-4.7 Reverse Logistics Analyst ID - FREDERICK [id number] 05:34:00 Test Item Value Reference Range Comments MAGNESIUM (BEAKER) (test vhni=478) 2.3 mg/dL 1.6-2.6 Reverse Logistics Analyst ID - FREDERICK WHEPATIC FUNCTION [id number] 05:34:00 Test Item Value Reference Range Comments TOTAL PROTEIN (BEAKER) (test xwzu=625) 5.9 gm/dL 6.0-8.3 ALBUMIN (BEAKER) (test okka=9146) 2.7 g/dL 3.5-5.0 BILIRUBIN TOTAL (BEAKER) (test skbn=457) 0.7 mg/dL 0.2-1.2 BILIRUBIN DIRECT (BEAKER) (test mtri=214) 0.5 mg/dL 0.1-0.5 ALKALINE PHOSPHATASE (BEAKER) (test zeys=693) 225 U/L 40-150 AST (SGOT) (BEAKER) (test jhwf=525) 46 U/L 5-34 ALT (SGPT) (BEAKER) (test fzuo=532) 32 U/L 6-55 Reverse Logistics Analyst ID - FREDERICK WLACTATE DEHYDROGENASE (LDH)2019-06-16 05:34:00 Test Item Value Reference Range Comments LACTATE DEHYDROGENASE (BEAKER) (test jdjf=337) 678 U/L 125-220 Reverse Logistics Analyst ID - FREDERICK WCBC W/PLT COUNT & AUTO [id number] 04:56:00 Test Item Value Reference Range Comments WHITE BLOOD CELL COUNT (BEAKER) (test tjzq=285) 4.7 K/ L 3.5-10.5 RED BLOOD CELL COUNT (BEAKER) (test ovgf=217) 2.78 M/ L 4.63-6.08 HEMOGLOBIN (BEAKER) (test eaav=149) 8.2 GM/DL 13.7-17.5 HEMATOCRIT (BEAKER) (test ciqv=345) 24.8 % 40.1-51.0 MEAN CORPUSCULAR VOLUME (BEAKER) (test dtkw=775) 89.2 fL 79.0-92.2 MEAN CORPUSCULAR HEMOGLOBIN (BEAKER) (test 29.5 pg 25.7-32.2 tpja=708) MEAN CORPUSCULAR HEMOGLOBIN CONC (BEAKER) (test 33.1 GM/DL 32.3-36.5 zede=898) RED CELL DISTRIBUTION WIDTH (BEAKER) (test 16.9 % 11.6-14.4 qqqo=123) PLATELET COUNT (BEAKER) (test svjv=563) 289 K/CU MM 150-450 MEAN PLATELET VOLUME (BEAKER) (test jiuz=603) 9.7 fL 9.4-12.4 NUCLEATED RED BLOOD CELLS (BEAKER) (test 0 /100 WBC 0-0 euub=826) NEUTROPHILS RELATIVE PERCENT (BEAKER) (test 60 % ehlg=511) LYMPHOCYTES RELATIVE PERCENT (BEAKER) (test 14 % idfa=508) MONOCYTES RELATIVE PERCENT (BEAKER) (test 14 % pndf=555) EOSINOPHILS RELATIVE PERCENT (BEAKER) (test 11 % pmkx=348) BASOPHILS RELATIVE PERCENT (BEAKER) (test 1 % qopd=299) NEUTROPHILS ABSOLUTE COUNT (BEAKER) (test 2.81 K/ L 1.78-5.38 bubj=525) LYMPHOCYTES ABSOLUTE COUNT (BEAKER) (test 0.64 K/ L 1.32-3.57 dcjc=437) MONOCYTES ABSOLUTE COUNT (BEAKER) (test 0.64 K/ L 0.30-0.82 wsnj=634) EOSINOPHILS ABSOLUTE COUNT (BEAKER) (test 0.53 K/ L 0.04-0.54 etrw=605) BASOPHILS ABSOLUTE COUNT (BEAKER) (test 0.03 K/ L 0.01-0.08 snuc=776) IMMATURE GRANULOCYTES-RELATIVE PERCENT (BEAKER) 1 % 0-1 (test figz=8462) POCT-GLUCOSE [id number] 22:51:00 Test Item Value Reference Range Comments POC-GLUCOSE METER (BEAKER) 104 mg/dL 70-110 : TESTED AT [facility] [address] [facility] (test ilke=1483) [facility], [address]: Reverse Logistics Analyst/Computer Technology Teacher [id number] for PRINCESS ERICH YUN [id number] 22:17:00 Test Item Value Reference Range Comments MAGNESIUM (BEAKER) (test pbzj=143) 2.3 mg/dL 1.6-2.6 Reverse Logistics Analyst ID - DBBASIC METABOLIC [id number] 18:29:00 Test Item Value Reference Range Comments SODIUM (BEAKER) (test 129 meq/L 136-145 mmrq=356) POTASSIUM (BEAKER) (test 4.7 meq/L 3.5-5.1 ekss=755) CHLORIDE (BEAKER) (test 101 meq/L 98-107 ptzg=121) CO2 (BEAKER) (test 20 meq/L 22-29 rkfz=849) BLOOD UREA NITROGEN 58 mg/dL 7-21 (BEAKER) (test kxjf=297) CREATININE (BEAKER) (test 3.21 mg/dL 0.57-1.25 okti=575) GLUCOSE RANDOM (BEAKER) 139 mg/dL 70-105 (test olyz=745) CALCIUM (BEAKER) (test 8.2 mg/dL 8.4-10.2 oats=564) EGFR (BEAKER) (test 19 mL/min/1.73 sq m ESTIMATED GFR IS NOT kwdy=0034) ACCURATE CREATININE CLEARANCE IN PREDICTING GLOMERULAR FILTRATION RATE. ESTIMATED GFR IS NOT APPLICABLE FOR DIALYSIS PATIENTS. Reverse Logistics Analyst ID - BSPOCT-GLUCOSE [id number] 18:05:00 Test Item Value Reference Range Comments POC-GLUCOSE METER (BEAKER) 137 mg/dL 70-110 : TESTED AT [facility] [address] [facility] (test pfmu=1763) [facility], [address]: Reverse Logistics Analyst/Computer Technology Teacher [id number] for LINDA NUÑEZ OXYGEN SATURATION, [id number] 16:00:00 Test Item Value Reference Range Comments O2 SATURATION (MEASURED) (BEAKER) (test muds=5348) 67.3 % BASIC METABOLIC [id number] 14:25:00 Test Item Value Reference Range Comments SODIUM (BEAKER) (test 129 meq/L 136-145 loow=239) POTASSIUM (BEAKER) (test 5.1 meq/L 3.5-5.1 asrv=966) CHLORIDE (BEAKER) (test 100 meq/L 98-107 eequ=421) CO2 (BEAKER) (test 18 meq/L 22-29 ghny=261) BLOOD UREA NITROGEN 61 mg/dL 7-21 (BEAKER) (test vtor=062) CREATININE (BEAKER) (test 3.11 mg/dL 0.57-1.25 bdzm=313) GLUCOSE RANDOM (BEAKER) 104 mg/dL 70-105 (test rwqg=034) CALCIUM (BEAKER) (test 8.3 mg/dL 8.4-10.2 uvat=704) EGFR (BEAKER) (test 20 mL/min/1.73 sq m ESTIMATED GFR IS NOT vemb=8233) ACCURATE CREATININE CLEARANCE IN PREDICTING GLOMERULAR FILTRATION RATE. ESTIMATED GFR IS NOT APPLICABLE FOR DIALYSIS PATIENTS. Reverse Logistics Analyst ID - MARISABEL [id number] 14:22:00 Test Item Value Reference Range Comments MAGNESIUM (BEAKER) (test zjel=501) 2.4 mg/dL 1.6-2.6 Reverse Logistics Analyst ID - MARISABEL MPOCT-GLUCOSE [id number] 11:45:00 Test Item Value Reference Range Comments POC-GLUCOSE METER (BEAKER) 113 mg/dL 70-110 : Notified RN/MD: TESTED AT (test losa=6990) [address], [address]: Reverse Logistics Analyst/Computer Technology Teacher [id number] for Hilliard, Angelika POCT-GLUCOSE [id number] 08:23:00 Test Item Value Reference Range Comments POC-GLUCOSE METER (BEAKER) 139 mg/dL 70-110 : Notified RN/MD: TESTED AT (test hwrb=4016) [place] [id number] [facility], [address]: Reverse Logistics Analyst/Computer Technology Teacher [id number] for Hilliard, Angelika RAD, CHEST, 1 VIEW, NON [id number] 07:47:00Reason for exam:->s/p ACBShould this be performed [...] MDReport Verified Date/Time: 06/15/2019 07:47:34 Reading Location: [facility] Radiology Reading Room CBC W/PLT COUNT & AUTO [id number] 07:12:00 Test Item Value Reference Range Comments WHITE BLOOD CELL COUNT (BEAKER) (test zeqr=388) 4.9 K/ L 3.5-10.5 RED BLOOD CELL COUNT (BEAKER) (test iljl=142) 2.88 M/ L 4.63-6.08 HEMOGLOBIN (BEAKER) (test lmob=949) 8.4 GM/DL 13.7-17.5 HEMATOCRIT (BEAKER) (test qjob=849) 25.9 % 40.1-51.0 MEAN CORPUSCULAR VOLUME (BEAKER) (test vefc=197) 89.9 fL 79.0-92.2 MEAN CORPUSCULAR HEMOGLOBIN (BEAKER) (test 29.2 pg 25.7-32.2 muzb=799) MEAN CORPUSCULAR HEMOGLOBIN CONC (BEAKER) (test 32.4 GM/DL 32.3-36.5 rqwq=288) RED CELL DISTRIBUTION WIDTH (BEAKER) (test 17.0 % 11.6-14.4 bkps=199) PLATELET COUNT (BEAKER) (test tkqg=370) 269 K/CU MM 150-450 MEAN PLATELET VOLUME (BEAKER) (test txku=743) 9.6 fL 9.4-12.4 NUCLEATED RED BLOOD CELLS (BEAKER) (test 0 /100 WBC 0-0 bixi=787) NEUTROPHILS RELATIVE PERCENT (BEAKER) (test 63 % gxlv=937) LYMPHOCYTES RELATIVE PERCENT (BEAKER) (test 14 % kous=022) MONOCYTES RELATIVE PERCENT (BEAKER) (test 12 % kotj=434) EOSINOPHILS RELATIVE PERCENT (BEAKER) (test 10 % iodj=592) BASOPHILS RELATIVE PERCENT (BEAKER) (test 0 % asvi=519) NEUTROPHILS ABSOLUTE COUNT (BEAKER) (test 3.10 K/ L 1.78-5.38 webl=806) LYMPHOCYTES ABSOLUTE COUNT (BEAKER) (test 0.69 K/ L 1.32-3.57 kiij=630) MONOCYTES ABSOLUTE COUNT (BEAKER) (test 0.60 K/ L 0.30-0.82 satu=284) EOSINOPHILS ABSOLUTE COUNT (BEAKER) (test 0.49 K/ L 0.04-0.54 sdxk=286) BASOPHILS ABSOLUTE COUNT (BEAKER) (test 0.02 K/ L 0.01-0.08 abyk=701) IMMATURE GRANULOCYTES-RELATIVE PERCENT (BEAKER) 1 % 0-1 (test yrqp=9631) OXYGEN SATURATION, [id number] 05:03:00 Test Item Value Reference Range Comments O2 SATURATION (MEASURED) (BEAKER) (test saex=9329) 55.6 % LACTATE DEHYDROGENASE (LDH)2019-06-15 05:00:00 Test Item Value Reference Range Comments LACTATE DEHYDROGENASE (BEAKER) 821 U/L 125-220 Specimen slightly hemolyzed (test mnok=424) Reverse Logistics Analyst ID - MARISABEL MBASIC METABOLIC [id number] 05:00:00 Test Item Value Reference Range Comments SODIUM (BEAKER) (test 130 meq/L 136-145 esbf=323) POTASSIUM (BEAKER) (test 5.2 meq/L 3.5-5.1 Specimen slightly hyxb=471) hemolyzed CHLORIDE (BEAKER) (test 101 meq/L 98-107 ofir=263) CO2 (BEAKER) (test 22 meq/L 22-29 aeug=796) BLOOD UREA NITROGEN 62 mg/dL 7-21 (BEAKER) (test ftby=058) CREATININE (BEAKER) (test 3.22 mg/dL 0.57-1.25 Specimen slightly sazd=441) hemolyzed GLUCOSE RANDOM (BEAKER) 109 mg/dL 70-105 (test ecbo=338) CALCIUM (BEAKER) (test 8.2 mg/dL 8.4-10.2 nixx=288) EGFR (BEAKER) (test 19 mL/min/1.73 sq m ESTIMATED GFR IS NOT bcha=1092) ACCURATE CREATININE CLEARANCE IN PREDICTING GLOMERULAR FILTRATION RATE. ESTIMATED GFR IS NOT APPLICABLE FOR DIALYSIS PATIENTS. Reverse Logistics Analyst ID - MARISABEL [id number] 04:41:00 Test Item Value Reference Range Comments MAGNESIUM (BEAKER) (test 1.9 mg/dL 1.6-2.6 Specimen slightly hemolyzed vypr=135) Reverse Logistics Analyst ID - MARISABEL [id number] 04:41:00 Test Item Value Reference Range Comments PHOSPHORUS (BEAKER) (test 4.9 mg/dL 2.3-4.7 Specimen slightly hemolyzed wtwu=043) Reverse Logistics Analyst ID - MARISABEL MPOCT-GLUCOSE [id number] 22:14:00 Test Item Value Reference Range Comments POC-GLUCOSE METER (BEAKER) 130 mg/dL 70-110 : TESTED AT [facility] [address] [facility] (test slpx=6211) [facility], [address]: Reverse Logistics Analyst/Computer Technology Teacher [id number] for MOHINI THURMAN BASIC METABOLIC [id number] 19:11:00 Test Item Value Reference Range Comments SODIUM (BEAKER) (test 130 meq/L 136-145 njbj=396) POTASSIUM (BEAKER) (test 5.1 meq/L 3.5-5.1 atjb=828) CHLORIDE (BEAKER) (test 101 meq/L 98-107 zcvp=570) CO2 (BEAKER) (test 21 meq/L 22-29 hkat=105) BLOOD UREA NITROGEN 62 mg/dL 7-21 (BEAKER) (test lmah=840) CREATININE (BEAKER) (test 3.15 mg/dL 0.57-1.25 wnpz=034) GLUCOSE RANDOM (BEAKER) 127 mg/dL 70-105 (test cmoc=116) CALCIUM (BEAKER) (test 8.2 mg/dL 8.4-10.2 cmsc=661) EGFR (BEAKER) (test 20 mL/min/1.73 sq m ESTIMATED GFR IS NOT ygpk=9043) ACCURATE CREATININE CLEARANCE IN PREDICTING GLOMERULAR FILTRATION RATE. ESTIMATED GFR IS NOT APPLICABLE FOR DIALYSIS PATIENTS. Reverse Logistics Analyst ID - [id number] 19:10:00 Test Item Value Reference Range Comments MAGNESIUM (BEAKER) (test rhid=444) 2.0 mg/dL 1.6-2.6 Reverse Logistics Analyst ID - BSPOTASSIUM-STAT [id number] 18:39:00 Test Item Value Reference Range Comments POTASSIUM (BEAKER) (test lwcc=591) 4.9 meq/L 3.6-5.5 POCT-GLUCOSE [id number] 16:49:00 Test Item Value Reference Range Comments POC-GLUCOSE METER (BEAKER) 122 mg/dL 70-110 : Notified RN/MD: TESTED AT (test vsdh=5785) [address], [address]: Reverse Logistics Analyst/Computer Technology Teacher [id number] for Hilliard, Angelika OXYGEN SATURATION, [id number] 16:42:00 Test Item Value Reference Range Comments O2 SATURATION (MEASURED) (BEAKER) (test gzwr=1368) 52.6 % POCT-GLUCOSE [id number] 13:23:00 Test Item Value Reference Range Comments POC-GLUCOSE METER (BEAKER) 125 mg/dL 70-110 : Notified RN/MD: TESTED AT (test ohno=0017) [address], [address]: Reverse Logistics Analyst/Computer Technology Teacher [id number] for Hilliard, Angelika [id number] 10:57:00 Test Item Value Reference Range Comments MAGNESIUM (BEAKER) (test 2.0 mg/dL 1.6-2.6 Specimen slightly hemolyzed cggr=260) Reverse Logistics Analyst ID - MELLY [id number] 10:57:00 Test Item Value Reference Range Comments POTASSIUM (BEAKER) (test 5.6 meq/L 3.5-5.1 Specimen slightly hemolyzed bwiz=697) Reverse Logistics Analyst ID - MELLY FOXYGEN SATURATION, [id number] 10:36:00 Test Item Value Reference Range Comments O2 SATURATION (MEASURED) (BEAKER) (test pyhm=6849) 43.0 % POCT-GLUCOSE [id number] 08:35:00 Test Item Value Reference Range Comments POC-GLUCOSE METER (BEAKER) 107 mg/dL 70-110 : Notified RN/MD: TESTED AT (test yqgt=5436) [address], [address]: Reverse Logistics Analyst/Computer Technology Teacher [id number] for Hilliard, Angelika RAD, CHEST, 1 VIEW, NON [id number] 07:03:00Reason for exam:->s/p ACBShould this be performed [...] RUIZephao Verified Date/Time: 06/14/2019 07:03:26 Reading Location: [facility] Radiology Reading Room BASIC METABOLIC [id number] 04:10:00 Test Item Value Reference Range Comments SODIUM (BEAKER) (test 131 meq/L 136-145 xkvg=906) POTASSIUM (BEAKER) (test 5.3 meq/L 3.5-5.1 Specimen slightly dpqv=621) hemolyzed CHLORIDE (BEAKER) (test 102 meq/L 98-107 punh=777) CO2 (BEAKER) (test 21 meq/L 22-29 zkpp=144) BLOOD UREA NITROGEN 61 mg/dL 7-21 (BEAKER) (test frgj=682) CREATININE (BEAKER) (test 3.01 mg/dL 0.57-1.25 Specimen slightly sswx=373) hemolyzed GLUCOSE RANDOM (BEAKER) 109 mg/dL 70-105 (test xxsn=903) CALCIUM (BEAKER) (test 8.3 mg/dL 8.4-10.2 jbib=227) EGFR (BEAKER) (test 21 mL/min/1.73 sq m ESTIMATED GFR IS NOT wpjt=6282) ACCURATE CREATININE CLEARANCE IN PREDICTING GLOMERULAR FILTRATION RATE. ESTIMATED GFR IS NOT APPLICABLE FOR DIALYSIS PATIENTS. Reverse Logistics Analyst ID - MARISABEL MLACTATE DEHYDROGENASE (LDH)2019-06-14 04:10:00 Test Item Value Reference Range Comments LACTATE DEHYDROGENASE (BEAKER) 1289 U/L 125-220 Specimen slightly hemolyzed (test upzk=479) Reverse Logistics Analyst ID - MARISABEL [id number] 03:51:00 Test Item Value Reference Range Comments MAGNESIUM (BEAKER) (test 2.0 mg/dL 1.6-2.6 Specimen slightly hemolyzed xizv=131) Reverse Logistics Analyst ID - MARISABEL [id number] 03:51:00 Test Item Value Reference Range Comments PHOSPHORUS (BEAKER) (test 4.6 mg/dL 2.3-4.7 Specimen slightly hemolyzed vegp=075) Reverse Logistics Analyst ID - MARISABEL [id number] 03:39:00 Test Item Value Reference Range Comments PARTIAL THROMBOPLASTIN TIME (BEAKER) (test 78.9 seconds 22.5-36.0 kgee=833) OXYGEN SATURATION, [id number] 03:23:00 Test Item Value Reference Range Comments O2 SATURATION (MEASURED) (BEAKER) (test kluw=0428) 63.3 % PH, [id number] 03:23:00 Test Item Value Reference Range Comments PH VENOUS (BEAKER) (test himj=489) 7.46 7.32-7.42 CBC W/PLT COUNT & AUTO [id number] 03:21:00 Test Item Value Reference Range Comments WHITE BLOOD CELL COUNT (BEAKER) (test enaj=583) 5.5 K/ L 3.5-10.5 RED BLOOD CELL COUNT (BEAKER) (test eidu=608) 2.83 M/ L 4.63-6.08 HEMOGLOBIN (BEAKER) (test hryd=475) 8.4 GM/DL 13.7-17.5 HEMATOCRIT (BEAKER) (test ppvb=848) 25.4 % 40.1-51.0 MEAN CORPUSCULAR VOLUME (BEAKER) (test xhvv=288) 89.8 fL 79.0-92.2 MEAN CORPUSCULAR HEMOGLOBIN (BEAKER) (test 29.7 pg 25.7-32.2 gqvh=557) MEAN CORPUSCULAR HEMOGLOBIN CONC (BEAKER) (test 33.1 GM/DL 32.3-36.5 ydaf=678) RED CELL DISTRIBUTION WIDTH (BEAKER) (test 16.8 % 11.6-14.4 fefk=121) PLATELET COUNT (BEAKER) (test twdt=103) 248 K/CU MM 150-450 MEAN PLATELET VOLUME (BEAKER) (test iukh=947) 10.1 fL 9.4-12.4 NUCLEATED RED BLOOD CELLS (BEAKER) (test 0 /100 WBC 0-0 vwje=399) NEUTROPHILS RELATIVE PERCENT (BEAKER) (test 68 % jjhg=577) LYMPHOCYTES RELATIVE PERCENT (BEAKER) (test 13 % jhkd=526) MONOCYTES RELATIVE PERCENT (BEAKER) (test 12 % fywx=901) EOSINOPHILS RELATIVE PERCENT (BEAKER) (test 7 % imsb=799) BASOPHILS RELATIVE PERCENT (BEAKER) (test 0 % ghbv=019) NEUTROPHILS ABSOLUTE COUNT (BEAKER) (test 3.72 K/ L 1.78-5.38 rntj=101) LYMPHOCYTES ABSOLUTE COUNT (BEAKER) (test 0.70 K/ L 1.32-3.57 hhyy=175) MONOCYTES ABSOLUTE COUNT (BEAKER) (test 0.65 K/ L 0.30-0.82 hceg=743) EOSINOPHILS ABSOLUTE COUNT (BEAKER) (test 0.39 K/ L 0.04-0.54 krfb=770) BASOPHILS ABSOLUTE COUNT (BEAKER) (test 0.02 K/ L 0.01-0.08 ezcy=840) IMMATURE GRANULOCYTES-RELATIVE PERCENT (BEAKER) 1 % 0-1 (test pfwm=6433) POCT-GLUCOSE [id number] 22:46:00 Test Item Value Reference Range Comments POC-GLUCOSE METER (BEAKER) 121 mg/dL 70-110 : TESTED AT [facility] [address] [facility] (test hage=8342) [facility], [address]: Reverse Logistics Analyst/Computer Technology Teacher [id number] for MOHINI THURMAN [id number] 22:06:00 Test Item Value Reference Range Comments POTASSIUM (BEAKER) (test jtlg=469) 5.1 meq/L 3.5-5.1 Reverse Logistics Analyst ID - [id number] 22:06:00 Test Item Value Reference Range Comments MAGNESIUM (BEAKER) (test ucpw=077) 2.0 mg/dL 1.6-2.6 Reverse Logistics Analyst ID - TANESHANBLOOD [id number] 20:00:00 Test Item Value Reference Range Comments CULTURE (BEAKER) (test vkwt=8226) No growth in 5 days BLOOD [id number] 20:00:00 Test Item Value Reference Range Comments CULTURE (BEAKER) (test zrij=3122) No growth in 5 days OXYGEN SATURATION, [id number] 17:31:00 Test Item Value Reference Range Comments O2 SATURATION (MEASURED) (BEAKER) (test eyot=6181) 60.1 % RAD, CHEST, 1 VIEW, NON [id number] 17:23:00Reason for exam:->MAC with PAC placementShould this be performed at the bedside?->YesFINAL REPORT Comparison: 06/13/2019 at 5:02 AM TECHNIQUE: Single view of the chest FINDINGS: Tip of right internal jugular pulmonary arterial catheter projects in the main pulmonary outflow tract. No pneumothorax. No other significant change from recent previous chest x-ray. Signed: Sarath Randhawa MDReport Verified Date/Time: 06/13/2019 17:23:22 Reading Location: [facility] Radiology Reading Room Electronically signed by: SARATH RANDHAWA M.D. on 05:23 PMPOCT-GLUCOSE [id number] 16:31:00 Test Item Value Reference Range Comments POC-GLUCOSE METER (BEAKER) 122 mg/dL 70-110 : Notified RN/MD: TESTED AT (test vasc=0500) [address], [address]: Reverse Logistics Analyst/Computer Technology Teacher [id number] for JUANIS CARDENAS [id number] 13:06:00 Test Item Value Reference Range Comments POTASSIUM (BEAKER) (test uzip=936) 5.0 meq/L 3.5-5.1 Reverse Logistics Analyst ID - TODD [id number] 13:06:00 Test Item Value Reference Range Comments MAGNESIUM (BEAKER) (test eykc=413) 2.1 mg/dL 1.6-2.6 Reverse Logistics Analyst ID - TODD MPOCT-GLUCOSE [id number] 12:40:00 Test Item Value Reference Range Comments POC-GLUCOSE METER (BEAKER) 100 mg/dL 70-110 : Notified RN/MD: TESTED AT (test qjht=5098) [address], [address]: Reverse Logistics Analyst/Computer Technology Teacher [id number] for MARI CARDENASTY POCT-GLUCOSE [id number] 08:03:00 Test Item Value Reference Range Comments POC-GLUCOSE METER (BEAKER) 144 mg/dL 70-110 : TESTED AT [address] (test dpci=5016) [facility], [address]: Reverse Logistics Analyst/Computer Technology Teacher [id number] for JUANIS CARDENAS RAD, CHEST, 1 VIEW, NON [id number] 07:32:00Reason for exam:->s/p ACBShould this be performed [...] MDReport Verified Date/Time: 06/13/2019 07:32:29 Reading Location: [facility] Radiology Reading Room [id number] 05:21:00 Test Item Value Reference Range Comments PARTIAL THROMBOPLASTIN TIME (BEAKER) (test 67.7 seconds 22.5-36.0 qlzs=761) BASIC METABOLIC [id number] 05:16:00 Test Item Value Reference Range Comments SODIUM (BEAKER) (test 130 meq/L 136-145 mwlp=132) POTASSIUM (BEAKER) (test 5.1 meq/L 3.5-5.1 tpio=521) CHLORIDE (BEAKER) (test 102 meq/L 98-107 yzml=824) CO2 (BEAKER) (test 20 meq/L 22-29 aoud=661) BLOOD UREA NITROGEN 63 mg/dL 7-21 (BEAKER) (test kdrx=911) CREATININE (BEAKER) (test 2.78 mg/dL 0.57-1.25 efji=203) GLUCOSE RANDOM (BEAKER) 102 mg/dL 70-105 (test rihm=287) CALCIUM (BEAKER) (test 8.3 mg/dL 8.4-10.2 vpdt=070) EGFR (BEAKER) (test 23 mL/min/1.73 sq m ESTIMATED GFR IS NOT qfqt=6175) ACCURATE CREATININE CLEARANCE IN PREDICTING GLOMERULAR FILTRATION RATE. ESTIMATED GFR IS NOT APPLICABLE FOR DIALYSIS PATIENTS. Reverse Logistics Analyst ID - MARISABEL [id number] 05:15:00 Test Item Value Reference Range Comments PHOSPHORUS (BEAKER) (test vpih=949) 3.9 mg/dL 2.3-4.7 Reverse Logistics Analyst ID - MARISABEL [id number] 05:15:00 Test Item Value Reference Range Comments MAGNESIUM (BEAKER) (test pogv=353) 2.1 mg/dL 1.6-2.6 Reverse Logistics Analyst ID - MARISABEL MLACTATE DEHYDROGENASE (LDH)2019-06-13 05:15:00 Test Item Value Reference Range Comments LACTATE DEHYDROGENASE (BEAKER) (test cwco=959) 892 U/L 125-220 Reverse Logistics Analyst ID - MARISABEL MPH, [id number] 05:06:00 Test Item Value Reference Range Comments PH VENOUS (BEAKER) (test fccz=322) 7.51 7.32-7.42 OXYGEN SATURATION, [id number] 05:05:00 Test Item Value Reference Range Comments O2 SATURATION (MEASURED) (BEAKER) (test vtoy=6514) 72.7 % CBC (HEMOGRAM ONLY)2019-06-13 04:57:00 Test Item Value Reference Range Comments WHITE BLOOD CELL COUNT (BEAKER) (test ddmn=533) 6.0 K/ L 3.5-10.5 RED BLOOD CELL COUNT (BEAKER) (test qzfp=276) 2.63 M/ L 4.63-6.08 HEMOGLOBIN (BEAKER) (test qaik=142) 7.6 GM/DL 13.7-17.5 HEMATOCRIT (BEAKER) (test rbbo=649) 23.6 % 40.1-51.0 MEAN CORPUSCULAR VOLUME (BEAKER) (test oqiw=369) 89.7 fL 79.0-92.2 MEAN CORPUSCULAR HEMOGLOBIN (BEAKER) (test 28.9 pg 25.7-32.2 azfd=594) MEAN CORPUSCULAR HEMOGLOBIN CONC (BEAKER) (test 32.2 GM/DL 32.3-36.5 muqb=054) RED CELL DISTRIBUTION WIDTH (BEAKER) (test 17.2 % 11.6-14.4 lhcd=314) PLATELET COUNT (BEAKER) (test yqqw=260) 231 K/CU MM 150-450 MEAN PLATELET VOLUME (BEAKER) (test iczu=214) 10.0 fL 9.4-12.4 NUCLEATED RED BLOOD CELLS (BEAKER) (test 0 /100 WBC 0-0 xxjg=487) POCT-GLUCOSE [id number] 22:12:00 Test Item Value Reference Range Comments POC-GLUCOSE METER (BEAKER) 122 mg/dL 70-110 : TESTED AT [address] (test jfrd=4066) [facility], [address]: Reverse Logistics Analyst/Computer Technology Teacher [id number] for MOHINI THURMAN [id number] 21:20:00 Test Item Value Reference Range Comments POTASSIUM (BEAKER) (test kqyl=775) 5.1 meq/L 3.5-5.1 Reverse Logistics Analyst ID - MEERA [id number] 21:20:00 Test Item Value Reference Range Comments MAGNESIUM (BEAKER) (test tmyt=419) 1.9 mg/dL 1.6-2.6 Reverse Logistics Analyst ID - MEERA EOXYGEN SATURATION, [id number] 20:50:00 Test Item Value Reference Range Comments O2 SATURATION (MEASURED) (BEAKER) (test ezfb=4597) 63.6 % POCT-GLUCOSE [id number] 16:20:00 Test Item Value Reference Range Comments POC-GLUCOSE METER (BEAKER) 118 mg/dL 70-110 : Notified RN/MD: TESTED AT (test yitu=3412) [address], [address]: Reverse Logistics Analyst/Computer Technology Teacher [id number] for Angelika Hilliard [id number] 13:31:00 Test Item Value Reference Range Comments POTASSIUM (BEAKER) (test ntsl=239) 5.2 meq/L 3.5-5.1 Reverse Logistics Analyst ID - MELLY [id number] 13:31:00 Test Item Value Reference Range Comments MAGNESIUM (BEAKER) (test xnhm=305) 2.0 mg/dL 1.6-2.6 Reverse Logistics Analyst ID - MELLY FPH, [id number] 12:59:00 Test Item Value Reference Range Comments PH VENOUS (BEAKER) (test kndj=146) 7.42 7.32-7.42 OXYGEN SATURATION, [id number] 12:58:00 Test Item Value Reference Range Comments O2 SATURATION (MEASURED) (BEAKER) (test hmzf=4760) 66.3 % POCT-GLUCOSE [id number] 12:46:00 Test Item Value Reference Range Comments POC-GLUCOSE METER (BEAKER) 145 mg/dL 70-110 : Notified RN/MD: TESTED AT (test htfy=7816) [facility] [address] [facility], [address]: Reverse Logistics Analyst/Computer Technology Teacher [id number] for HilliardChandanaAngelika POCT-GLUCOSE [id number] 08:16:00 Test Item Value Reference Range Comments POC-GLUCOSE METER (BEAKER) 101 mg/dL 70-110 : Notified RN/MD: TESTED AT (test gawi=2168) [place] [id number] [facility], [address]: Reverse Logistics Analyst/Computer Technology Teacher [id number] for Hilliard, Angelika RAD, CHEST, 1 VIEW, NON [id number] 07:44:00Reason for exam:->s/p ACBShould this be performed [...] MDReport Verified Date/Time: 06/12/2019 07:44:25 Reading Location: [facility] Radiology Reading Room OXYGEN SATURATION, [id number] 05:16:00 Test Item Value Reference Range Comments O2 SATURATION (MEASURED) (BEAKER) (test bdon=6371) 70.8 % [id number] 04:55:00 Test Item Value Reference Range Comments PARTIAL THROMBOPLASTIN TIME (BEAKER) (test 86.6 seconds 22.5-36.0 krgk=218) BASIC METABOLIC [id number] 04:54:00 Test Item Value Reference Range Comments SODIUM (BEAKER) (test 129 meq/L 136-145 gdmy=152) POTASSIUM (BEAKER) (test 5.2 meq/L 3.5-5.1 cxda=610) CHLORIDE (BEAKER) (test 100 meq/L 98-107 yfgx=586) CO2 (BEAKER) (test 22 meq/L 22-29 pcpi=964) BLOOD UREA NITROGEN 68 mg/dL 7-21 (BEAKER) (test usqa=416) CREATININE (BEAKER) (test 2.79 mg/dL 0.57-1.25 gpmq=936) GLUCOSE RANDOM (BEAKER) 109 mg/dL 70-105 (test unph=177) CALCIUM (BEAKER) (test 8.1 mg/dL 8.4-10.2 ngvp=519) EGFR (BEAKER) (test 23 mL/min/1.73 sq m ESTIMATED GFR IS NOT fjvb=5257) ACCURATE CREATININE CLEARANCE IN PREDICTING GLOMERULAR FILTRATION RATE. ESTIMATED GFR IS NOT APPLICABLE FOR DIALYSIS PATIENTS. Reverse Logistics Analyst ID - FREDERICK [id number] 04:47:00 Test Item Value Reference Range Comments PHOSPHORUS (BEAKER) (test uwjw=534) 4.2 mg/dL 2.3-4.7 Reverse Logistics Analyst ID - FREDERICK [id number] 04:47:00 Test Item Value Reference Range Comments MAGNESIUM (BEAKER) (test pngx=123) 2.1 mg/dL 1.6-2.6 Reverse Logistics Analyst ID - FREDERICK WLACTATE DEHYDROGENASE (LDH)2019-06-12 04:47:00 Test Item Value Reference Range Comments LACTATE DEHYDROGENASE (BEAKER) (test dfhl=303) 943 U/L 125-220 Reverse Logistics Analyst ID - FREDERICK WCBC (HEMOGRAM ONLY)2019-06-12 04:28:00 Test Item Value Reference Range Comments WHITE BLOOD CELL COUNT (BEAKER) (test clxi=688) 5.7 K/ L 3.5-10.5 RED BLOOD CELL COUNT (BEAKER) (test czfs=114) 2.60 M/ L 4.63-6.08 HEMOGLOBIN (BEAKER) (test ugsp=427) 7.6 GM/DL 13.7-17.5 HEMATOCRIT (BEAKER) (test ifna=598) 23.0 % 40.1-51.0 MEAN CORPUSCULAR VOLUME (BEAKER) (test qzqs=358) 88.5 fL 79.0-92.2 MEAN CORPUSCULAR HEMOGLOBIN (BEAKER) (test 29.2 pg 25.7-32.2 qhyu=238) MEAN CORPUSCULAR HEMOGLOBIN CONC (BEAKER) (test 33.0 GM/DL 32.3-36.5 bjvh=752) RED CELL DISTRIBUTION WIDTH (BEAKER) (test 17.0 % 11.6-14.4 rlba=899) PLATELET COUNT (BEAKER) (test jwna=759) 215 K/CU MM 150-450 MEAN PLATELET VOLUME (BEAKER) (test ezen=944) 10.2 fL 9.4-12.4 NUCLEATED RED BLOOD CELLS (BEAKER) (test 0 /100 WBC 0-0 elcb=275) [id number] 22:34:00 Test Item Value Reference Range Comments POTASSIUM (BEAKER) (test aehk=206) 5.0 meq/L 3.5-5.1 Reverse Logistics Analyst ID - MARIBEL [id number] 22:34:00 Test Item Value Reference Range Comments MAGNESIUM (BEAKER) (test qiar=894) 2.1 mg/dL 1.6-2.6 Reverse Logistics Analyst ID - MARIBEL WPOCT-GLUCOSE [id number] 18:38:00 Test Item Value Reference Range Comments POC-GLUCOSE METER (BEAKER) 150 mg/dL 70-110 : TESTED AT [facility] [address] [facility] (test grje=8974) [facility], [address]: Reverse Logistics Analyst/Computer Technology Teacher [id number] for LINDA HOLLIDAY OXYGEN SATURATION, [id number] 17:20:00 Test Item Value Reference Range Comments O2 SATURATION (MEASURED) (BEAKER) (test rdhx=4647) 60.7 % BASIC METABOLIC [id number] 16:49:00 Test Item Value Reference Range Comments SODIUM (BEAKER) (test 127 meq/L 136-145 vzgj=046) POTASSIUM (BEAKER) (test 4.9 meq/L 3.5-5.1 aspt=076) CHLORIDE (BEAKER) (test 100 meq/L 98-107 xtsq=774) CO2 (BEAKER) (test 21 meq/L 22-29 oaea=577) BLOOD UREA NITROGEN 68 mg/dL 7-21 (BEAKER) (test jwin=554) CREATININE (BEAKER) (test 2.70 mg/dL 0.57-1.25 oaoi=654) GLUCOSE RANDOM (BEAKER) 134 mg/dL 70-105 (test ghsl=634) CALCIUM (BEAKER) (test 7.7 mg/dL 8.4-10.2 tpbn=613) EGFR (BEAKER) (test 23 mL/min/1.73 sq m ESTIMATED GFR IS NOT wjhw=2694) ACCURATE CREATININE CLEARANCE IN PREDICTING GLOMERULAR FILTRATION RATE. ESTIMATED GFR IS NOT APPLICABLE FOR DIALYSIS PATIENTS. Reverse Logistics Analyst ID - MARIBEL WLACTATE DEHYDROGENASE (LDH)2019-06-11 12:22:00 Test Item Value Reference Range Comments LACTATE DEHYDROGENASE (BEAKER) 1099 U/L 125-220 Specimen slightly hemolyzed (test lxzy=393) Reverse Logistics Analyst ID - TOOGBASIC METABOLIC [id number] 12:22:00 Test Item Value Reference Range Comments SODIUM (BEAKER) (test 126 meq/L 136-145 wzvb=086) POTASSIUM (BEAKER) (test 5.4 meq/L 3.5-5.1 Specimen slightly tnap=961) hemolyzed CHLORIDE (BEAKER) (test 99 meq/L 98-107 uzsq=104) CO2 (BEAKER) (test 18 meq/L 22-29 iosc=739) BLOOD UREA NITROGEN 70 mg/dL 7-21 (BEAKER) (test nksa=395) CREATININE (BEAKER) (test 2.82 mg/dL 0.57-1.25 Specimen slightly umaf=778) hemolyzed GLUCOSE RANDOM (BEAKER) 107 mg/dL 70-105 (test pavo=438) CALCIUM (BEAKER) (test 8.2 mg/dL 8.4-10.2 mqqe=561) EGFR (BEAKER) (test 22 mL/min/1.73 sq m ESTIMATED GFR IS NOT obwc=0879) ACCURATE CREATININE CLEARANCE IN PREDICTING GLOMERULAR FILTRATION RATE. ESTIMATED GFR IS NOT APPLICABLE FOR DIALYSIS PATIENTS. Reverse Logistics Analyst ID - TOOGPOCT-GLUCOSE [id number] 12:01:00 Test Item Value Reference Range Comments POC-GLUCOSE METER (BEAKER) 97 mg/dL 70-110 : TESTED AT [facility] [address] (test kwol=1221) [facility], [address]: Reverse Logistics Analyst/Computer Technology Teacher [id number] for LINDA HOLLIDAY CBC (HEMOGRAM ONLY)2019-06-11 11:40:00 Test Item Value Reference Range Comments WHITE BLOOD CELL COUNT (BEAKER) (test naeo=541) 7.6 K/ L 3.5-10.5 RED BLOOD CELL COUNT (BEAKER) (test rabk=267) 2.70 M/ L 4.63-6.08 HEMOGLOBIN (BEAKER) (test bibu=428) 7.9 GM/DL 13.7-17.5 HEMATOCRIT (BEAKER) (test hicr=032) 23.7 % 40.1-51.0 MEAN CORPUSCULAR VOLUME (BEAKER) (test nugs=401) 87.8 fL 79.0-92.2 MEAN CORPUSCULAR HEMOGLOBIN (BEAKER) (test 29.3 pg 25.7-32.2 pavd=769) MEAN CORPUSCULAR HEMOGLOBIN CONC (BEAKER) (test 33.3 GM/DL 32.3-36.5 fxja=773) RED CELL DISTRIBUTION WIDTH (BEAKER) (test 16.9 % 11.6-14.4 ydce=580) PLATELET COUNT (BEAKER) (test ryeo=226) 210 K/CU MM 150-450 MEAN PLATELET VOLUME (BEAKER) (test wewi=457) 10.0 fL 9.4-12.4 NUCLEATED RED BLOOD CELLS (BEAKER) (test 0 /100 WBC 0-0 lhgs=190) POCT-GLUCOSE [id number] 07:41:00 Test Item Value Reference Range Comments POC-GLUCOSE METER (BEAKER) 118 mg/dL 70-110 : TESTED AT [address] (test wzmp=8583) [facility], [address]: Reverse Logistics Analyst/Computer Technology Teacher [id number] for LINDA HOLLIDAY RAD, CHEST, 1 VIEW, NON [id number] 06:30:00Reason for exam:->s/p ACBShould this be performed [...] MDReport Verified Date/Time: 06/11/2019 06:30:25 OXYGEN SATURATION, [id number] 06:19:00 Test Item Value Reference Range Comments O2 SATURATION (MEASURED) (BEAKER) (test oxmj=3998) 63.9 % [id number] 05:08:00 Test Item Value Reference Range Comments PHOSPHORUS (BEAKER) (test gxmg=049) 4.4 mg/dL 2.3-4.7 Reverse Logistics Analyst ID - FREDERICK WLACTATE DEHYDROGENASE (LDH)2019-06-11 05:08:00 Test Item Value Reference Range Comments LACTATE DEHYDROGENASE (BEAKER) (test iose=331) 908 U/L 125-220 Reverse Logistics Analyst ID - FREDERICK [id number] 05:07:00 Test Item Value Reference Range Comments PARTIAL THROMBOPLASTIN TIME (BEAKER) (test 80.3 seconds 22.5-36.0 ozpj=704) POCT-GLUCOSE [id number] 00:38:00 Test Item Value Reference Range Comments POC-GLUCOSE METER (BEAKER) 127 mg/dL 70-110 : TESTED AT [facility] [address] [place] [address] (test amfh=7975) [facility], [address]: Reverse Logistics Analyst/Computer Technology Teacher [id number] for OSMAR MEADOWS BASIC METABOLIC [id number] 19:03:00 Test Item Value Reference Range Comments SODIUM (BEAKER) (test 128 meq/L 136-145 zocl=027) POTASSIUM (BEAKER) (test 4.9 meq/L 3.5-5.1 zzkn=534) CHLORIDE (BEAKER) (test 98 meq/L 98-107 codt=000) CO2 (BEAKER) (test 21 meq/L 22-29 lwgx=032) BLOOD UREA NITROGEN 73 mg/dL 7-21 (BEAKER) (test prgy=717) CREATININE (BEAKER) (test 2.92 mg/dL 0.57-1.25 ygaq=905) GLUCOSE RANDOM (BEAKER) 119 mg/dL 70-105 (test ljaq=354) CALCIUM (BEAKER) (test 8.5 mg/dL 8.4-10.2 hrbe=755) EGFR (BEAKER) (test 21 mL/min/1.73 sq m ESTIMATED GFR IS NOT efgs=8929) ACCURATE CREATININE CLEARANCE IN PREDICTING GLOMERULAR FILTRATION RATE. ESTIMATED GFR IS NOT APPLICABLE FOR DIALYSIS PATIENTS. Reverse Logistics Analyst ID - MARISABEL [id number] 18:42:00 Test Item Value Reference Range Comments MAGNESIUM (BEAKER) (test mopg=212) 2.4 mg/dL 1.6-2.6 Reverse Logistics Analyst ID - MARISABEL MLACTATE DEHYDROGENASE (LDH)2019-06-10 18:42:00 Test Item Value Reference Range Comments LACTATE DEHYDROGENASE (BEAKER) (test cmwa=558) 1075 U/L 125-220 Reverse Logistics Analyst ID - MARISABEL MOXYGEN SATURATION, [id number] 18:05:00 Test Item Value Reference Range Comments O2 SATURATION (MEASURED) (BEAKER) (test uawm=0042) 57.4 % CBC (HEMOGRAM ONLY)2019-06-10 16:33:00 Test Item Value Reference Range Comments WHITE BLOOD CELL COUNT (BEAKER) (test rvtm=173) 9.9 K/ L 3.5-10.5 RED BLOOD CELL COUNT (BEAKER) (test dmpz=608) 2.71 M/ L 4.63-6.08 HEMOGLOBIN (BEAKER) (test sagp=605) 7.9 GM/DL 13.7-17.5 HEMATOCRIT (BEAKER) (test ljze=073) 23.7 % 40.1-51.0 MEAN CORPUSCULAR VOLUME (BEAKER) (test avpn=055) 87.5 fL 79.0-92.2 MEAN CORPUSCULAR HEMOGLOBIN (BEAKER) (test 29.2 pg 25.7-32.2 jcna=343) MEAN CORPUSCULAR HEMOGLOBIN CONC (BEAKER) (test 33.3 GM/DL 32.3-36.5 bess=342) RED CELL DISTRIBUTION WIDTH (BEAKER) (test 16.8 % 11.6-14.4 hhby=328) PLATELET COUNT (BEAKER) (test ygsz=169) 197 K/CU MM 150-450 MEAN PLATELET VOLUME (BEAKER) (test lvul=150) 9.9 fL 9.4-12.4 NUCLEATED RED BLOOD CELLS (BEAKER) (test 0 /100 WBC 0-0 vchc=842) POCT-GLUCOSE [id number] 10:47:00 Test Item Value Reference Range Comments POC-GLUCOSE METER (BEAKER) 113 mg/dL 70-110 : TESTED AT [facility] [address] (test fqqg=7077) [facility], [address]: Reverse Logistics Analyst/Computer Technology Teacher [id number] for GENARO VÁZQUEZ, CHEST, 1 VIEW, NON [id number] 08:41:00Reason for exam:->s/p ACBShould this be performed [...] MDReport Verified Date/Time: 06/10/2019 08:41:34 Reading Location: [address] Ortho Consult Reading Room RAD, ABDOMEN/KUB, 1 VIEW [id number] 07:43:00Reason for exam:->abdominal pain.FINAL REPORT Abdomen. HISTORY: [...] MDReport Verified Date/Time: 06/10/2019 07:43:03 Reading Location: [address] Ortho Consult Reading Room BASIC METABOLIC [id number] 06: 11:00 Test Item Value Reference Range Comments SODIUM (BEAKER) (test 126 meq/L 136-145 zjnz=655) POTASSIUM (BEAKER) (test 4.8 meq/L 3.5-5.1 onuk=464) CHLORIDE (BEAKER) (test 96 meq/L 98-107 vtku=260) CO2 (BEAKER) (test 20 meq/L 22-29 qbxe=163) BLOOD UREA NITROGEN 75 mg/dL 7-21 (BEAKER) (test yfba=490) CREATININE (BEAKER) (test 3.07 mg/dL 0.57-1.25 vrrl=166) GLUCOSE RANDOM (BEAKER) 110 mg/dL 70-105 (test buxb=962) CALCIUM (BEAKER) (test 8.2 mg/dL 8.4-10.2 bqvg=159) EGFR (BEAKER) (test 20 mL/min/1.73 sq m ESTIMATED GFR IS NOT thgb=8039) ACCURATE CREATININE CLEARANCE IN PREDICTING GLOMERULAR FILTRATION RATE. ESTIMATED GFR IS NOT APPLICABLE FOR DIALYSIS PATIENTS. Reverse Logistics Analyst ID - MARISABEL [id number] 06:06:00 Test Item Value Reference Range Comments MAGNESIUM (BEAKER) (test veay=125) 2.3 mg/dL 1.6-2.6 Reverse Logistics Analyst ID - MARISABEL [id number] 05:51:00 Test Item Value Reference Range Comments PARTIAL THROMBOPLASTIN TIME (BEAKER) (test 84.1 seconds 22.5-36.0 aqsu=422) CBC (HEMOGRAM ONLY)2019-06-10 05:45:00 Test Item Value Reference Range Comments WHITE BLOOD CELL COUNT (BEAKER) (test peqb=505) 13.0 K/ L 3.5-10.5 RED BLOOD CELL COUNT (BEAKER) (test ftct=577) 2.73 M/ L 4.63-6.08 HEMOGLOBIN (BEAKER) (test pbyf=150) 8.0 GM/DL 13.7-17.5 HEMATOCRIT (BEAKER) (test vtmq=465) 24.1 % 40.1-51.0 MEAN CORPUSCULAR VOLUME (BEAKER) (test ouaf=411) 88.3 fL 79.0-92.2 MEAN CORPUSCULAR HEMOGLOBIN (BEAKER) (test 29.3 pg 25.7-32.2 cnzi=476) MEAN CORPUSCULAR HEMOGLOBIN CONC (BEAKER) (test 33.2 GM/DL 32.3-36.5 dnur=323) RED CELL DISTRIBUTION WIDTH (BEAKER) (test 16.6 % 11.6-14.4 lkuy=438) PLATELET COUNT (BEAKER) (test euwi=339) 203 K/CU MM 150-450 MEAN PLATELET VOLUME (BEAKER) (test rqgx=898) 9.9 fL 9.4-12.4 NUCLEATED RED BLOOD CELLS (BEAKER) (test 0 /100 WBC 0-0 yzun=832) OXYGEN SATURATION, [id number] 05:08:00 Test Item Value Reference Range Comments O2 SATURATION (MEASURED) (BEAKER) (test sjro=8033) 74.4 % [id number] 02:41:00 Test Item Value Reference Range Comments MAGNESIUM (BEAKER) (test 2.3 mg/dL 1.6-2.6 Specimen slightly hemolyzed bmja=664) Reverse Logistics Analyst AMY ESTES [id number] 02:41:00 Test Item Value Reference Range Comments POTASSIUM (BEAKER) (test 4.9 meq/L 3.5-5.1 Specimen slightly hemolyzed blte=670) Reverse Logistics Analyst AMY ESTES EBASIC METABOLIC [id number] 22:27:00 Test Item Value Reference Range Comments SODIUM (BEAKER) (test 127 meq/L 136-145 ucjf=978) POTASSIUM (BEAKER) (test 4.6 meq/L 3.5-5.1 diqu=736) CHLORIDE (BEAKER) (test 96 meq/L 98-107 neji=602) CO2 (BEAKER) (test 22 meq/L 22-29 ibnx=908) BLOOD UREA NITROGEN 73 mg/dL 7-21 (BEAKER) (test qvmr=055) CREATININE (BEAKER) (test 3.12 mg/dL 0.57-1.25 hbns=818) GLUCOSE RANDOM (BEAKER) 122 mg/dL 70-105 (test ujow=419) CALCIUM (BEAKER) (test 7.8 mg/dL 8.4-10.2 qebr=263) EGFR (BEAKER) (test 20 mL/min/1.73 sq m ESTIMATED GFR IS NOT utia=3711) ACCURATE CREATININE CLEARANCE IN PREDICTING GLOMERULAR FILTRATION RATE. ESTIMATED GFR IS NOT APPLICABLE FOR DIALYSIS PATIENTS. Reverse Logistics Analyst ID - [id number] 22:24:00 Test Item Value Reference Range Comments MAGNESIUM (BEAKER) (test ujdu=656) 2.4 mg/dL 1.6-2.6 Reverse Logistics Analyst ID - BSPOCT-GLUCOSE [id number] 22:16:00 Test Item Value Reference Range Comments POC-GLUCOSE METER (BEAKER) 109 mg/dL 70-110 : TESTED AT [facility] [address] [facility] (test wprr=2085) [facility], [address]: Reverse Logistics Analyst/Computer Technology Teacher [id number] for MOHINI THURMAN CBC (HEMOGRAM ONLY)2019-06-09 21:57:00 Test Item Value Reference Range Comments WHITE BLOOD CELL COUNT (BEAKER) (test hapr=200) 14.6 K/ L 3.5-10.5 RED BLOOD CELL COUNT (BEAKER) (test aqjc=310) 2.71 M/ L 4.63-6.08 HEMOGLOBIN (BEAKER) (test fbyv=782) 7.8 GM/DL 13.7-17.5 HEMATOCRIT (BEAKER) (test ttkc=109) 23.9 % 40.1-51.0 MEAN CORPUSCULAR VOLUME (BEAKER) (test zttj=592) 88.2 fL 79.0-92.2 MEAN CORPUSCULAR HEMOGLOBIN (BEAKER) (test 28.8 pg 25.7-32.2 joyw=275) MEAN CORPUSCULAR HEMOGLOBIN CONC (BEAKER) (test 32.6 GM/DL 32.3-36.5 pehf=333) RED CELL DISTRIBUTION WIDTH (BEAKER) (test 16.6 % 11.6-14.4 zryp=852) PLATELET COUNT (BEAKER) (test ddvy=439) 205 K/CU MM 150-450 MEAN PLATELET VOLUME (BEAKER) (test zwnt=322) 10.2 fL 9.4-12.4 NUCLEATED RED BLOOD CELLS (BEAKER) (test 0 /100 WBC 0-0 aihs=526) BASIC METABOLIC [id number] 15:57:00 Test Item Value Reference Range Comments SODIUM (BEAKER) (test 129 meq/L 136-145 mfbw=937) POTASSIUM (BEAKER) (test 4.8 meq/L 3.5-5.1 eqsu=340) CHLORIDE (BEAKER) (test 98 meq/L 98-107 daiz=316) CO2 (BEAKER) (test 24 meq/L 22-29 prmh=592) BLOOD UREA NITROGEN 82 mg/dL 7-21 (BEAKER) (test gqcx=817) CREATININE (BEAKER) (test 3.21 mg/dL 0.57-1.25 fpos=680) GLUCOSE RANDOM (BEAKER) 145 mg/dL 70-105 (test rnmu=235) CALCIUM (BEAKER) (test 8.7 mg/dL 8.4-10.2 vyrz=656) EGFR (BEAKER) (test 19 mL/min/1.73 sq m ESTIMATED GFR IS NOT ueqr=7743) ACCURATE CREATININE CLEARANCE IN PREDICTING GLOMERULAR FILTRATION RATE. ESTIMATED GFR IS NOT APPLICABLE FOR DIALYSIS PATIENTS. Reverse Logistics Analyst ID - MEERA [id number] 15:52:00 Test Item Value Reference Range Comments MAGNESIUM (BEAKER) (test puog=598) 2.6 mg/dL 1.6-2.6 Reverse Logistics Analyst ID - MEERA ELACTATE DEHYDROGENASE (LDH)2019-06-09 15:52:00 Test Item Value Reference Range Comments LACTATE DEHYDROGENASE (BEAKER) (test mdwx=110) 1283 U/L 125-220 Reverse Logistics Analyst ID - MEERA ECBC (HEMOGRAM ONLY)2019-06-09 15:36:00 Test Item Value Reference Range Comments WHITE BLOOD CELL COUNT (BEAKER) (test lqll=515) 15.5 K/ L 3.5-10.5 RED BLOOD CELL COUNT (BEAKER) (test vtvu=088) 2.83 M/ L 4.63-6.08 HEMOGLOBIN (BEAKER) (test asps=206) 8.3 GM/DL 13.7-17.5 HEMATOCRIT (BEAKER) (test mzni=642) 24.7 % 40.1-51.0 MEAN CORPUSCULAR VOLUME (BEAKER) (test pvcw=098) 87.3 fL 79.0-92.2 MEAN CORPUSCULAR HEMOGLOBIN (BEAKER) (test 29.3 pg 25.7-32.2 csru=554) MEAN CORPUSCULAR HEMOGLOBIN CONC (BEAKER) (test 33.6 GM/DL 32.3-36.5 phrt=109) RED CELL DISTRIBUTION WIDTH (BEAKER) (test 16.6 % 11.6-14.4 axfv=616) PLATELET COUNT (BEAKER) (test kdmw=625) 211 K/CU MM 150-450 MEAN PLATELET VOLUME (BEAKER) (test dzle=083) 10.6 fL 9.4-12.4 NUCLEATED RED BLOOD CELLS (BEAKER) (test 0 /100 WBC 0-0 mqqh=760) POCT-GLUCOSE [id number] 12:43:00 Test Item Value Reference Range Comments POC-GLUCOSE METER (BEAKER) 123 mg/dL 70-110 : Notified RN/MD: TESTED AT (test nkal=8498) [facility] [address] [facility], [address]: Reverse Logistics Analyst/Computer Technology Teacher [id number] for JUANIS CARDENAS RAD, ABDOMEN/KUB, 1 VIEW [id number] 09:37:00Reason for exam:->stool impactionFINAL REPORT RAD, ABDOMEN/KUB, [...] [place] Verified Date/Time: 06/09/2019 09:37:05 Reading Location: [facility] Radiology Reading Room RAD, CHEST, 1 VIEW, NON [id number] 08:29:00Reason for exam:->s/p ACBShould this be performed [...] Location: [facility] Reading Room POCT-GLUCOSE [id number] 08:23:00 Test Item Value Reference Range Comments POC-GLUCOSE METER (BEAKER) 133 mg/dL 70-110 : Notified RN/MD: TESTED AT (test zhsw=8095) [facility] [address] [facility], [address]: Reverse Logistics Analyst/Computer Technology Teacher [id number] for JUANIS CARDENAS OXYGEN SATURATION, [id number] 06:33:00 Test Item Value Reference Range Comments O2 SATURATION (MEASURED) (BEAKER) (test zaxx=6607) 58.0 % CBC W/PLT COUNT & AUTO [id number] 04:45:00 Test Item Value Reference Range Comments WHITE BLOOD CELL COUNT (BEAKER) (test cnij=262) 19.7 K/ L 3.5-10.5 RED BLOOD CELL COUNT (BEAKER) (test jyhp=913) 2.82 M/ L 4.63-6.08 HEMOGLOBIN (BEAKER) (test lltl=276) 8.3 GM/DL 13.7-17.5 HEMATOCRIT (BEAKER) (test uzty=889) 24.4 % 40.1-51.0 MEAN CORPUSCULAR VOLUME (BEAKER) (test qhgy=875) 86.5 fL 79.0-92.2 MEAN CORPUSCULAR HEMOGLOBIN (BEAKER) (test 29.4 pg 25.7-32.2 zckf=113) MEAN CORPUSCULAR HEMOGLOBIN CONC (BEAKER) (test 34.0 GM/DL 32.3-36.5 ulnk=599) RED CELL DISTRIBUTION WIDTH (BEAKER) (test 16.2 % 11.6-14.4 ppft=464) PLATELET COUNT (BEAKER) (test zdsf=497) 197 K/CU MM 150-450 MEAN PLATELET VOLUME (BEAKER) (test tivt=291) 10.2 fL 9.4-12.4 NUCLEATED RED BLOOD CELLS (BEAKER) (test 0 /100 WBC 0-0 qmmb=522) NEUTROPHILS RELATIVE PERCENT (BEAKER) (test 88 % xlzg=136) LYMPHOCYTES RELATIVE PERCENT (BEAKER) (test 4 % mnmr=905) MONOCYTES RELATIVE PERCENT (BEAKER) (test 6 % fjis=929) EOSINOPHILS RELATIVE PERCENT (BEAKER) (test 1 % ycyl=864) BASOPHILS RELATIVE PERCENT (BEAKER) (test 0 % yynh=217) NEUTROPHILS ABSOLUTE COUNT (BEAKER) (test 17.31 K/ L 1.78-5.38 dmik=127) LYMPHOCYTES ABSOLUTE COUNT (BEAKER) (test 0.75 K/ L 1.32-3.57 pqdb=288) MONOCYTES ABSOLUTE COUNT (BEAKER) (test 1.21 K/ L 0.30-0.82 tzlp=088) EOSINOPHILS ABSOLUTE COUNT (BEAKER) (test 0.20 K/ L 0.04-0.54 mpkn=817) BASOPHILS ABSOLUTE COUNT (BEAKER) (test 0.04 K/ L 0.01-0.08 gyrh=034) IMMATURE GRANULOCYTES-RELATIVE PERCENT (BEAKER) 1 % 0-1 (test frne=1415) [id number] 04:23:00 Test Item Value Reference Range Comments PROTIME (BEAKER) (test dmck=009) 20.5 seconds 11.9-14.2 INR (BEAKER) (test tuth=863) 1.8 <=5.9 PARTIAL THROMBOPLASTIN TIME (BEAKER) (test 89.0 seconds 22.5-36.0 ziyx=627) Effective 10/12/2018: PT Reference Range ChangeNew: 11.9-14.2 Previous: 11.7- 14.7RECOMMENDED COUMADIN/WARFARIN INR THERAPY RANGESSTANDARD DOSE: 2.0-3.0 Includes: PROPHYLAXIS for venous thrombosis, systemic embolization; TREATMENT for venous thrombosis and/or pulmonary embolus.HIGH RISK: Target INR is2.5-3.5 for patients wiht mechanical heart valves.BASIC METABOLIC [id number] 04:11: 00 Test Item Value Reference Range Comments SODIUM (BEAKER) (test 126 meq/L 136-145 zpvv=568) POTASSIUM (BEAKER) (test 4.7 meq/L 3.5-5.1 pyqa=885) CHLORIDE (BEAKER) (test 95 meq/L 98-107 ufck=331) CO2 (BEAKER) (test 23 meq/L 22-29 bekd=199) BLOOD UREA NITROGEN 70 mg/dL 7-21 (BEAKER) (test lxhb=200) CREATININE (BEAKER) (test 3.00 mg/dL 0.57-1.25 zkue=836) GLUCOSE RANDOM (BEAKER) 121 mg/dL 70-105 (test fghm=041) CALCIUM (BEAKER) (test 8.1 mg/dL 8.4-10.2 swdg=692) EGFR (BEAKER) (test 21 mL/min/1.73 sq m ESTIMATED GFR IS NOT iyby=5309) ACCURATE CREATININE CLEARANCE IN PREDICTING GLOMERULAR FILTRATION RATE. ESTIMATED GFR IS NOT APPLICABLE FOR DIALYSIS PATIENTS. Reverse Logistics Analyst ID - MARISABEL [id number] 04:09:00 Test Item Value Reference Range Comments PHOSPHORUS (BEAKER) (test xxyo=098) 3.7 mg/dL 2.3-4.7 Reverse Logistics Analyst ID - MARISABEL [id number] 04:09:00 Test Item Value Reference Range Comments MAGNESIUM (BEAKER) (test yfua=089) 2.1 mg/dL 1.6-2.6 Reverse Logistics Analyst ID - MARISABEL MLACTATE DEHYDROGENASE (LDH)2019-06-09 04:09:00 Test Item Value Reference Range Comments LACTATE DEHYDROGENASE (BEAKER) (test xmcy=642) 1092 U/L 125-220 Reverse Logistics Analyst ID - MARISABEL [id number] 01:08:00 Test Item Value Reference Range Comments POTASSIUM (BEAKER) (test dkxe=047) 4.7 meq/L 3.5-5.1 Reverse Logistics Analyst ID - MARY [id number] 00:36:00 Test Item Value Reference Range Comments MAGNESIUM (BEAKER) (test qcrv=865) 2.1 mg/dL 1.6-2.6 Reverse Logistics Analyst ID - MARY BBASIC METABOLIC [id number] 19:01:00 Test Item Value Reference Range Comments SODIUM (BEAKER) (test 124 meq/L 136-145 tyxg=511) POTASSIUM (BEAKER) (test 4.5 meq/L 3.5-5.1 wxoc=549) CHLORIDE (BEAKER) (test 94 meq/L 98-107 pasr=174) CO2 (BEAKER) (test 24 meq/L 22-29 xctt=161) BLOOD UREA NITROGEN 69 mg/dL 7-21 (BEAKER) (test rbpc=439) CREATININE (BEAKER) (test 2.93 mg/dL 0.57-1.25 tahl=624) GLUCOSE RANDOM (BEAKER) 126 mg/dL 70-105 (test mcbr=001) CALCIUM (BEAKER) (test 7.9 mg/dL 8.4-10.2 xytr=699) EGFR (BEAKER) (test 21 mL/min/1.73 sq m ESTIMATED GFR IS NOT ymze=2853) ACCURATE CREATININE CLEARANCE IN PREDICTING GLOMERULAR FILTRATION RATE. ESTIMATED GFR IS NOT APPLICABLE FOR DIALYSIS PATIENTS. Reverse Logistics Analyst ID - [id number] 18:49:00 Test Item Value Reference Range Comments MAGNESIUM (BEAKER) (test hpjs=473) 2.1 mg/dL 1.6-2.6 Reverse Logistics Analyst ID - AAHAMIDLACTATE DEHYDROGENASE (LDH)2019-06-08 18:49:00 Test Item Value Reference Range Comments LACTATE DEHYDROGENASE (BEAKER) (test ftza=321) 1097 U/L 125-220 Reverse Logistics Analyst ID - AAHAMIDCBC (HEMOGRAM ONLY)2019-06-08 18:23:00 Test Item Value Reference Range Comments WHITE BLOOD CELL COUNT (BEAKER) (test cnmz=431) 20.2 K/ L 3.5-10.5 RED BLOOD CELL COUNT (BEAKER) (test fdrd=310) 2.76 M/ L 4.63-6.08 HEMOGLOBIN (BEAKER) (test gksc=172) 8.2 GM/DL 13.7-17.5 HEMATOCRIT (BEAKER) (test quit=659) 23.9 % 40.1-51.0 MEAN CORPUSCULAR VOLUME (BEAKER) (test toni=642) 86.6 fL 79.0-92.2 MEAN CORPUSCULAR HEMOGLOBIN (BEAKER) (test 29.7 pg 25.7-32.2 pgih=090) MEAN CORPUSCULAR HEMOGLOBIN CONC (BEAKER) (test 34.3 GM/DL 32.3-36.5 rdav=037) RED CELL DISTRIBUTION WIDTH (BEAKER) (test 16.5 % 11.6-14.4 mdhn=809) PLATELET COUNT (BEAKER) (test ybjy=776) 192 K/CU MM 150-450 MEAN PLATELET VOLUME (BEAKER) (test dqlh=517) 10.2 fL 9.4-12.4 NUCLEATED RED BLOOD CELLS (BEAKER) (test 0 /100 WBC 0-0 vuzg=903) CT, CHEST, WITHOUT [id number] 16:45:00FINAL REPORT CT scan of the chest, [...] MDReport Verified Date/Time: 06/08/2019 16:45:20 Reading Location: [facility] Diagnostic Imaging Reading Room- [place] [address] CT, ABDOMEN, WITHOUT [id number] 16:45:00With PO contrastFINAL REPORT CT scan of [...] Verified Date/Time: 06/08/2019 16 :45:20 Reading Location: [facility] Diagnostic Imaging Reading Room- [place] [address] [address], PELVIS, WO [id number] 16:45:00FINAL REPORT CT scan of the chest, [...] MDReport Verified Date/Time: 06/08/2019 16:45:20 Reading Location: [facility] Diagnostic Imaging Reading Room- [place] [address] BASI METABOLIC [id number] 12:00:00 Test Item Value Reference Range Comments SODIUM (BEAKER) (test 124 meq/L 136-145 mgvy=358) POTASSIUM (BEAKER) (test 4.7 meq/L 3.5-5.1 ibmv=324) CHLORIDE (BEAKER) (test 94 meq/L 98-107 hvql=162) CO2 (BEAKER) (test 22 meq/L 22-29 rrhg=094) BLOOD UREA NITROGEN 71 mg/dL 7-21 (BEAKER) (test miey=239) CREATININE (BEAKER) (test 2.79 mg/dL 0.57-1.25 lobx=246) GLUCOSE RANDOM (BEAKER) 123 mg/dL 70-105 (test yvvg=199) CALCIUM (BEAKER) (test 7.9 mg/dL 8.4-10.2 iwdk=467) EGFR (BEAKER) (test 23 mL/min/1.73 sq m ESTIMATED GFR IS NOT fnia=8109) ACCURATE CREATININE CLEARANCE IN PREDICTING GLOMERULAR FILTRATION RATE. ESTIMATED GFR IS NOT APPLICABLE FOR DIALYSIS PATIENTS. Reverse Logistics Analyst ID - [id number] 11:53:00 Test Item Value Reference Range Comments MAGNESIUM (BEAKER) (test mqak=115) 2.2 mg/dL 1.6-2.6 Reverse Logistics Analyst ID - BSBLOOD GAS, [id number] 11:49:00 Test Item Value Reference Range Comments PH ARTERIAL (BEAKER) (test gdtb=012) 7.52 7.35-7.45 PCO2 ARTERIAL (BEAKER) (test qygx=564) 30 mmHg 35-45 PO2 ARTERIAL (BEAKER) (test negl=380) 100 mmHg 80-90 O2 SATURATION ARTERIAL (BEAKER) (test acrx=061) 98.1 % 96.0-97.0 HCO3 ARTERIAL (BEAKER) (test ncpc=922) 24 mmol/L 21-29 BASE EXCESS ARTERIAL (BEAKER) (test tamb=082) 1.8 mmol/L -2.0-3.0 PATIENT TEMPERATURE (BEAKER) (test fyxy=2521) 37.5 C FIO2 (BEAKER) (test mmms=0432) 36.0 % OXYGEN SATURATION, [id number] 11:47:00 Test Item Value Reference Range Comments O2 SATURATION (MEASURED) (BEAKER) (test tcef=4443) 62.0 % CBC (HEMOGRAM ONLY)2019-06-08 11:34:00 Test Item Value Reference Range Comments WHITE BLOOD CELL COUNT (BEAKER) (test abgx=639) 21.6 K/ L 3.5-10.5 RED BLOOD CELL COUNT (BEAKER) (test ckbd=005) 2.88 M/ L 4.63-6.08 HEMOGLOBIN (BEAKER) (test ensb=604) 8.6 GM/DL 13.7-17.5 HEMATOCRIT (BEAKER) (test wlpy=941) 24.8 % 40.1-51.0 MEAN CORPUSCULAR VOLUME (BEAKER) (test utpu=051) 86.1 fL 79.0-92.2 MEAN CORPUSCULAR HEMOGLOBIN (BEAKER) (test 29.9 pg 25.7-32.2 cexk=021) MEAN CORPUSCULAR HEMOGLOBIN CONC (BEAKER) (test 34.7 GM/DL 32.3-36.5 buac=759) RED CELL DISTRIBUTION WIDTH (BEAKER) (test 16.4 % 11.6-14.4 bypm=275) PLATELET COUNT (BEAKER) (test rdtx=948) 210 K/CU MM 150-450 MEAN PLATELET VOLUME (BEAKER) (test ytlt=427) 10.1 fL 9.4-12.4 NUCLEATED RED BLOOD CELLS (BEAKER) (test 0 /100 WBC 0-0 uyym=350) RAD, CHEST, 1 VIEW, NON [id number] 08:14:00Reason for exam:->s/p ACBShould this be performed at the bedside?->YesFINAL REPORT TECHNIQUE: Frontal and lateral chest radiographs dated 06/08/2019. CLINICAL HISTORY: S/P ACB COMPARISON STUDY: Chest radiograph dated 06/07/2019 IMPRESSION:Right-sided Buena-Allison catheter has been replaced by a vascular [...] Dsouzaeport Verified Date/Time: 06/08/2019 08:14:47 Reading Location: [facility] Reading Room [id number] 06:12:00 Test Item Value Reference Range Comments PHOSPHORUS (BEAKER) (test njhn=707) 2.3 mg/dL 2.3-4.7 Reverse Logistics Analyst ID - FREDERICK [id number] 06:12:00 Test Item Value Reference Range Comments MAGNESIUM (BEAKER) (test dsfl=381) 2.2 mg/dL 1.6-2.6 Reverse Logistics Analyst ID - FREDERICK WLACTATE DEHYDROGENASE (LDH)2019-06-08 06:12:00 Test Item Value Reference Range Comments LACTATE DEHYDROGENASE (BEAKER) (test phxo=354) 1147 U/L 125-220 Reverse Logistics Analyst ID - FREDERICK WBASIC METABOLIC [id number] 05:02:00 Test Item Value Reference Range Comments SODIUM (BEAKER) (test 125 meq/L 136-145 pekc=004) POTASSIUM (BEAKER) (test 4.5 meq/L 3.5-5.1 sagc=761) CHLORIDE (BEAKER) (test 94 meq/L 98-107 kacq=161) CO2 (BEAKER) (test 20 meq/L 22-29 aesx=193) BLOOD UREA NITROGEN 72 mg/dL 7-21 (BEAKER) (test dufl=212) CREATININE (BEAKER) (test 2.72 mg/dL 0.57-1.25 emed=400) GLUCOSE RANDOM (BEAKER) 157 mg/dL 70-105 (test togy=356) CALCIUM (BEAKER) (test 8.0 mg/dL 8.4-10.2 zpub=206) EGFR (BEAKER) (test 23 mL/min/1.73 sq m ESTIMATED GFR IS NOT kejc=2266) ACCURATE CREATININE CLEARANCE IN PREDICTING GLOMERULAR FILTRATION RATE. ESTIMATED GFR IS NOT APPLICABLE FOR DIALYSIS PATIENTS. Reverse Logistics Analyst ID - [id number] 04:27:00 Test Item Value Reference Range Comments PARTIAL THROMBOPLASTIN TIME (BEAKER) (test 86.1 seconds 22.5-36.0 kfbt=995) OXYGEN SATURATION, [id number] 04:25:00 Test Item Value Reference Range Comments O2 SATURATION (MEASURED) (BEAKER) (test zwch=3504) 44.7 % CBC (HEMOGRAM ONLY)2019-06-08 04:16:00 Test Item Value Reference Range Comments WHITE BLOOD CELL COUNT (BEAKER) (test byvo=547) 17.3 K/ L 3.5-10.5 RED BLOOD CELL COUNT (BEAKER) (test ewhi=039) 2.94 M/ L 4.63-6.08 HEMOGLOBIN (BEAKER) (test qqds=326) 8.6 GM/DL 13.7-17.5 HEMATOCRIT (BEAKER) (test smnr=775) 25.5 % 40.1-51.0 MEAN CORPUSCULAR VOLUME (BEAKER) (test obuo=327) 86.7 fL 79.0-92.2 MEAN CORPUSCULAR HEMOGLOBIN (BEAKER) (test 29.3 pg 25.7-32.2 eiuh=142) MEAN CORPUSCULAR HEMOGLOBIN CONC (BEAKER) (test 33.7 GM/DL 32.3-36.5 tzov=022) RED CELL DISTRIBUTION WIDTH (BEAKER) (test 16.1 % 11.6-14.4 ibpj=796) PLATELET COUNT (BEAKER) (test rlfr=250) 214 K/CU MM 150-450 MEAN PLATELET VOLUME (BEAKER) (test viar=605) 10.1 fL 9.4-12.4 NUCLEATED RED BLOOD CELLS (BEAKER) (test 0 /100 WBC 0-0 cgku=972) [id number] 02:13:00 Test Item Value Reference Range Comments POTASSIUM (BEAKER) (test otzu=214) 4.3 meq/L 3.5-5.1 Reverse Logistics Analyst ID - FREDERICK [id number] 00:11:00 Test Item Value Reference Range Comments MAGNESIUM (BEAKER) (test dttl=297) 2.0 mg/dL 1.6-2.6 Reverse Logistics Analyst ID - BSOXYGEN SATURATION, [id number] 20:12:00 Test Item Value Reference Range Comments O2 SATURATION (MEASURED) (BEAKER) (test rnss=0982) 69.5 % BASIC METABOLIC [id number] 17:41:00 Test Item Value Reference Range Comments SODIUM (BEAKER) (test 127 meq/L 136-145 dtym=557) POTASSIUM (BEAKER) (test 4.3 meq/L 3.5-5.1 tvnb=590) CHLORIDE (BEAKER) (test 95 meq/L 98-107 vhcz=177) CO2 (BEAKER) (test 23 meq/L 22-29 dxaj=303) BLOOD UREA NITROGEN 68 mg/dL 7-21 (BEAKER) (test lmem=578) CREATININE (BEAKER) (test 2.68 mg/dL 0.57-1.25 msqe=513) GLUCOSE RANDOM (BEAKER) 113 mg/dL 70-105 (test lvor=718) CALCIUM (BEAKER) (test 8.2 mg/dL 8.4-10.2 dazb=578) EGFR (BEAKER) (test 24 mL/min/1.73 sq m ESTIMATED GFR IS NOT vgwe=9336) ACCURATE CREATININE CLEARANCE IN PREDICTING GLOMERULAR FILTRATION RATE. ESTIMATED GFR IS NOT APPLICABLE FOR DIALYSIS PATIENTS. Reverse Logistics Analyst ID - [id number] 17:36:00 Test Item Value Reference Range Comments MAGNESIUM (BEAKER) (test rxne=989) 2.0 mg/dL 1.6-2.6 Reverse Logistics Analyst ID - BSLACTATE DEHYDROGENASE (LDH)2019-06-07 17:36:00 Test Item Value Reference Range Comments LACTATE DEHYDROGENASE (BEAKER) (test lppk=550) 1259 U/L 125-220 Reverse Logistics Analyst ID - BSCBC (HEMOGRAM ONLY)2019-06-07 17:01:00 Test Item Value Reference Range Comments WHITE BLOOD CELL COUNT (BEAKER) (test fvyg=655) 12.0 K/ L 3.5-10.5 RED BLOOD CELL COUNT (BEAKER) (test ywnd=492) 3.17 M/ L 4.63-6.08 HEMOGLOBIN (BEAKER) (test ynie=484) 9.1 GM/DL 13.7-17.5 HEMATOCRIT (BEAKER) (test vkwj=505) 27.5 % 40.1-51.0 MEAN CORPUSCULAR VOLUME (BEAKER) (test rfyp=586) 86.8 fL 79.0-92.2 MEAN CORPUSCULAR HEMOGLOBIN (BEAKER) (test 28.7 pg 25.7-32.2 mxmn=918) MEAN CORPUSCULAR HEMOGLOBIN CONC (BEAKER) (test 33.1 GM/DL 32.3-36.5 ebcg=542) RED CELL DISTRIBUTION WIDTH (BEAKER) (test 15.9 % 11.6-14.4 zwro=146) PLATELET COUNT (BEAKER) (test woru=735) 219 K/CU MM 150-450 MEAN PLATELET VOLUME (BEAKER) (test wcks=945) 9.8 fL 9.4-12.4 NUCLEATED RED BLOOD CELLS (BEAKER) (test 0 /100 WBC 0-0 eado=308) RAD, ABDOMEN/KUB, 1 VIEW [id number] 16:52:00Reason for exam:->Evaluate for SBOFINAL REPORT EXAM: [...] MDReport Verified Date/Time: 06/07/2019 16:52:41 Reading Location: [facility] Reading Room BLOOD GAS, [id number] 16:48:00 Test Item Value Reference Range Comments PH ARTERIAL (BEAKER) (test fdhj=670) 7.51 7.35-7.45 PCO2 ARTERIAL (BEAKER) (test sitb=829) 29 mmHg 35-45 PO2 ARTERIAL (BEAKER) (test aqas=708) 85 mmHg 80-90 O2 SATURATION ARTERIAL (BEAKER) (test fmlx=365) 97.4 % 96.0-97.0 HCO3 ARTERIAL (BEAKER) (test sqgd=067) 23 mmol/L 21-29 BASE EXCESS ARTERIAL (BEAKER) (test gxbr=832) 0.3 mmol/L -2.0-3.0 PATIENT TEMPERATURE (BEAKER) (test ncrm=1787) 36.5 C FIO2 (BEAKER) (test mece=3481) 21.0 % OXYGEN SATURATION, [id number] 16:47:00 Test Item Value Reference Range Comments O2 SATURATION (MEASURED) (BEAKER) (test rijy=8669) 34.9 % OXYGEN SATURATION, [id number] 13:12:00 Test Item Value Reference Range Comments O2 SATURATION (MEASURED) (BEAKER) (test fqpw=9111) 45.0 % [id number] 06:24:00 Test Item Value Reference Range Comments THYROID STIMULATING HORMONE (BEAKER) (test 2.27 uIU/mL 0.35-4.94 mfdk=240) Reverse Logistics Analyst ID - MARISABEL MLACTATE DEHYDROGENASE (LDH)2019-06-07 06:04:00 Test Item Value Reference Range Comments LACTATE DEHYDROGENASE (BEAKER) 1360 U/L 125-220 Specimen slightly hemolyzed (test pnyz=219) Reverse Logistics Analyst ID - MARISABEL MBASIC METABOLIC [id number] 06:04:00 Test Item Value Reference Range Comments SODIUM (BEAKER) (test 129 meq/L 136-145 ofwv=313) POTASSIUM (BEAKER) (test 4.5 meq/L 3.5-5.1 Specimen slightly acpe=727) hemolyzed CHLORIDE (BEAKER) (test 96 meq/L 98-107 zajy=458) CO2 (BEAKER) (test 24 meq/L 22-29 hfij=947) BLOOD UREA NITROGEN 74 mg/dL 7-21 (BEAKER) (test sjiy=657) CREATININE (BEAKER) (test 2.68 mg/dL 0.57-1.25 Specimen slightly fqjt=408) hemolyzed GLUCOSE RANDOM (BEAKER) 114 mg/dL 70-105 (test tlcc=856) CALCIUM (BEAKER) (test 8.1 mg/dL 8.4-10.2 phrc=692) EGFR (BEAKER) (test 24 mL/min/1.73 sq m ESTIMATED GFR IS NOT tmaa=2399) ACCURATE CREATININE CLEARANCE IN PREDICTING GLOMERULAR FILTRATION RATE. ESTIMATED GFR IS NOT APPLICABLE FOR DIALYSIS PATIENTS. Reverse Logistics Analyst ID - MARISABEL [id number] 06:02:00 Test Item Value Reference Range Comments MAGNESIUM (BEAKER) (test 2.3 mg/dL 1.6-2.6 Specimen slightly hemolyzed czod=203) Reverse Logistics Analyst ID - MARISABEL [id number] 06:02:00 Test Item Value Reference Range Comments PHOSPHORUS (BEAKER) (test 3.1 mg/dL 2.3-4.7 Specimen slightly hemolyzed blkc=919) Reverse Logistics Analyst ID - MARISABEL MCBC W/PLT COUNT & AUTO [id number] 05:49:00 Test Item Value Reference Range Comments WHITE BLOOD CELL COUNT (BEAKER) (test szni=173) 9.0 K/ L 3.5-10.5 RED BLOOD CELL COUNT (BEAKER) (test keeb=206) 2.91 M/ L 4.63-6.08 HEMOGLOBIN (BEAKER) (test mnmb=729) 8.4 GM/DL 13.7-17.5 HEMATOCRIT (BEAKER) (test kyaj=433) 25.0 % 40.1-51.0 MEAN CORPUSCULAR VOLUME (BEAKER) (test qcfp=212) 85.9 fL 79.0-92.2 MEAN CORPUSCULAR HEMOGLOBIN (BEAKER) (test 28.9 pg 25.7-32.2 owqt=481) MEAN CORPUSCULAR HEMOGLOBIN CONC (BEAKER) (test 33.6 GM/DL 32.3-36.5 iest=578) RED CELL DISTRIBUTION WIDTH (BEAKER) (test 15.8 % 11.6-14.4 xiwt=481) PLATELET COUNT (BEAKER) (test whkr=852) 188 K/CU MM 150-450 MEAN PLATELET VOLUME (BEAKER) (test ceyw=360) 10.4 fL 9.4-12.4 NUCLEATED RED BLOOD CELLS (BEAKER) (test 0 /100 WBC 0-0 yjjh=476) NEUTROPHILS RELATIVE PERCENT (BEAKER) (test 78 % qwmk=305) LYMPHOCYTES RELATIVE PERCENT (BEAKER) (test 7 % duys=224) MONOCYTES RELATIVE PERCENT (BEAKER) (test 10 % qsoc=183) EOSINOPHILS RELATIVE PERCENT (BEAKER) (test 3 % hcct=581) BASOPHILS RELATIVE PERCENT (BEAKER) (test 0 % ierh=281) NEUTROPHILS ABSOLUTE COUNT (BEAKER) (test 7.00 K/ L 1.78-5.38 fkwe=969) LYMPHOCYTES ABSOLUTE COUNT (BEAKER) (test 0.63 K/ L 1.32-3.57 cnzx=333) MONOCYTES ABSOLUTE COUNT (BEAKER) (test 0.93 K/ L 0.30-0.82 fqqb=906) EOSINOPHILS ABSOLUTE COUNT (BEAKER) (test 0.30 K/ L 0.04-0.54 eeiu=789) BASOPHILS ABSOLUTE COUNT (BEAKER) (test 0.02 K/ L 0.01-0.08 imap=496) IMMATURE GRANULOCYTES-RELATIVE PERCENT (BEAKER) 1 % 0-1 (test tmbk=0363) [id number] 05:46:00 Test Item Value Reference Range Comments PROTIME (BEAKER) (test lukn=951) 18.6 seconds 11.9-14.2 INR (BEAKER) (test ekiy=752) 1.6 <=5.9 PARTIAL THROMBOPLASTIN TIME (BEAKER) (test 86.0 seconds 22.5-36.0 dxjg=512) Effective 10/12/2018: PT Reference Range ChangeNew: 11.9-14.2 Previous: 11.7- 14.7RECOMMENDED COUMADIN/WARFARIN INR THERAPY RANGESSTANDARD DOSE: 2.0-3.0 Includes: PROPHYLAXIS for venous thrombosis, systemic embolization; TREATMENT for venous thrombosis and/or pulmonary embolus.HIGH RISK: Target INR is2.5-3.5 for patients wiht mechanical heart valves.PH, [id number] 05:42:00 Test Item Value Reference Range Comments PH VENOUS (BEAKER) (test fzdm=503) 7.48 7.32-7.42 BLOOD GAS, [id number] 05:39:00 Test Item Value Reference Range Comments PH ARTERIAL (BEAKER) (test luuj=550) 7.53 7.35-7.45 PCO2 ARTERIAL (BEAKER) (test vnvj=866) 31 mmHg 35-45 PO2 ARTERIAL (BEAKER) (test dfrf=179) 113 mmHg 80-90 O2 SATURATION ARTERIAL (BEAKER) (test ihup=306) 98.6 % 96.0-97.0 HCO3 ARTERIAL (BEAKER) (test klsa=044) 25 mmol/L 21-29 BASE EXCESS ARTERIAL (BEAKER) (test udji=863) 2.9 mmol/L -2.0-3.0 PATIENT TEMPERATURE (BEAKER) (test ivuj=0143) 37.0 C FIO2 (BEAKER) (test xlhx=2421) 36.0 % OXYGEN SATURATION, [id number] 05:09:00 Test Item Value Reference Range Comments O2 SATURATION (MEASURED) (BEAKER) (test fhea=1306) 61.0 % RAD, CHEST, 1 VIEW, NON [id number] 04:54:00Reason for exam:->s/p ACBShould this be performed [...] Reference Range Comments LACTATE DEHYDROGENASE (BEAKER) (test sjnm=080) 1170 U/L 125-220 Reverse Logistics Analyst ID - BSBASI METABOLIC [id number] 22:05:00 Test Item Value Reference Range Comments SODIUM (BEAKER) (test 128 meq/L 136-145 autk=090) POTASSIUM (BEAKER) (test 3.8 meq/L 3.5-5.1 sjoa=346) CHLORIDE (BEAKER) (test 94 meq/L 98-107 ferj=230) CO2 (BEAKER) (test 23 meq/L 22-29 ijfn=526) BLOOD UREA NITROGEN 78 mg/dL 7-21 (BEAKER) (test nzff=227) CREATININE (BEAKER) (test 2.90 mg/dL 0.57-1.25 bkny=317) GLUCOSE RANDOM (BEAKER) 135 mg/dL 70-105 (test kkco=161) CALCIUM (BEAKER) (test 8.0 mg/dL 8.4-10.2 szml=381) EGFR (BEAKER) (test 22 mL/min/1.73 sq m ESTIMATED GFR IS NOT xwec=1257) ACCURATE CREATININE CLEARANCE IN PREDICTING GLOMERULAR FILTRATION RATE. ESTIMATED GFR IS NOT APPLICABLE FOR DIALYSIS PATIENTS. [employer] Log[employer] Analyst ID - [id number] 21:58:00 Test Item Value Reference Range Comments MAGNESIUM (BEAKER) (test mibo=075) 2.4 mg/dL 1.6-2.6 Reverse Logistics Analyst ID - [id number] 21:26:00 Test Item Value Reference Range Comments PARTIAL THROMBOPLASTIN TIME (BEAKER) (test 87.9 seconds 22.5-36.0 aezl=668) CBC (HEMOGRAM ONLY)2019-06-06 21:15:00 Test Item Value Reference Range Comments WHITE BLOOD CELL COUNT (BEAKER) (test scca=097) 9.1 K/ L 3.5-10.5 RED BLOOD CELL COUNT (BEAKER) (test hkve=930) 2.92 M/ L 4.63-6.08 HEMOGLOBIN (BEAKER) (test hgln=813) 8.4 GM/DL 13.7-17.5 HEMATOCRIT (BEAKER) (test wrpi=484) 25.6 % 40.1-51.0 MEAN CORPUSCULAR VOLUME (BEAKER) (test iozf=206) 87.7 fL 79.0-92.2 MEAN CORPUSCULAR HEMOGLOBIN (BEAKER) (test 28.8 pg 25.7-32.2 dqtv=604) MEAN CORPUSCULAR HEMOGLOBIN CONC (BEAKER) (test 32.8 GM/DL 32.3-36.5 uakg=507) RED CELL DISTRIBUTION WIDTH (BEAKER) (test 15.5 % 11.6-14.4 rohe=327) PLATELET COUNT (BEAKER) (test gdhu=261) 195 K/CU MM 150-450 MEAN PLATELET VOLUME (BEAKER) (test vfrp=644) 10.2 fL 9.4-12.4 NUCLEATED RED BLOOD CELLS (BEAKER) (test 0 /100 WBC 0-0 gahd=889) [id number] 16:45:00 Test Item Value Reference Range Comments MAGNESIUM (BEAKER) (test myfy=358) 1.9 mg/dL 1.6-2.6 Reverse Log[employer] Analyst ID - [id number] 16:29:00 Test Item Value Reference Range Comments PARTIAL THROMBOPLASTIN TIME (BEAKER) (test 75.1 seconds 22.5-36.0 vkwo=754) HEPARIN [id number] 14:48:00 Test Item Value Reference Range Comments HEPARIN ANTIBODY (BEAKER) (test fmlm=457) Negative Negative HEPARIN ANTIBODY OD (BEAKER) (test ncwg=4450) 0.171 <0.400 4T TOTAL SCORE (BEAKER) (test xtdc=2561) 5 Probability of HIT based on scoring system: 6-8=High probability; 4-5= intermediate probability; 0-3=low probabilityOXYGEN SATURATION, [id number] 12:29:00 Test Item Value Reference Range Comments O2 SATURATION (MEASURED) (JINA) (test omyl=9404) 55.1 % RAD, CHEST, 1 VIEW, NON [id number] 08:23:00Reason for exam:->s/p ACBShould this be performed [...] Verified Date/Time : 06/06/2019 08:23:36 Reading Location: [facility] LACTATE DEHYDROGENASE (LDH)2019-06-06 07:34:00 Test Item Value Reference Range Comments LACTATE DEHYDROGENASE (BEAKER) (test wcat=339) 1201 U/L 125-220 Reverse Logistics Analyst ID - [id number] 05:07:00 Test Item Value Reference Range Comments PHOSPHORUS (BEAKER) (test jftx=095) 3.8 mg/dL 2.3-4.7 Reverse Logistics Analyst ID - [id number] 05:07:00 Test Item Value Reference Range Comments MAGNESIUM (BEAKER) (test pqvv=954) 1.9 mg/dL 1.6-2.6 Reverse Logistics Analyst ID - LABASIC METABOLIC [id number] 05:07:00 Test Item Value Reference Range Comments SODIUM (BEAKER) (test 129 meq/L 136-145 kivg=737) POTASSIUM (BEAKER) (test 3.6 meq/L 3.5-5.1 jwci=351) CHLORIDE (BEAKER) (test 93 meq/L 98-107 mage=803) CO2 (BEAKER) (test 27 meq/L 22-29 ynet=542) BLOOD UREA NITROGEN 72 mg/dL 7-21 (BEAKER) (test jimp=072) CREATININE (BEAKER) (test 2.93 mg/dL 0.57-1.25 qour=247) GLUCOSE RANDOM (BEAKER) 118 mg/dL 70-105 (test ejtu=394) CALCIUM (BEAKER) (test 8.3 mg/dL 8.4-10.2 vjoz=499) EGFR (BEAKER) (test 21 mL/min/1.73 sq m ESTIMATED GFR IS NOT fvno=8015) ACCURATE CREATININE CLEARANCE IN PREDICTING GLOMERULAR FILTRATION RATE. ESTIMATED GFR IS NOT APPLICABLE FOR DIALYSIS PATIENTS. [employer] Log[employer] Analyst ID - LAOXYGEN SATURATION, [id number] 04:48:00 Test Item Value Reference Range Comments O2 SATURATION (MEASURED) (BEAKER) (test tfzv=3312) 65.2 % CALCIUM, [id number] 04:45:00 Test Item Value Reference Range Comments CALCIUM IONIZED (BEAKER) (test pqoc=778) 1.07 mmol/L 1.12-1.27 PH, BLOOD (BEAKER) (test rlzo=5417) 7.47 CBC (HEMOGRAM ONLY)2019-06-06 04:45:00 Test Item Value Reference Range Comments WHITE BLOOD CELL COUNT (BEAKER) (test igfi=859) 9.6 K/ L 3.5-10.5 RED BLOOD CELL COUNT (BEAKER) (test quns=434) 2.98 M/ L 4.63-6.08 HEMOGLOBIN (BEAKER) (test jlkz=501) 8.6 GM/DL 13.7-17.5 HEMATOCRIT (BEAKER) (test punv=527) 25.5 % 40.1-51.0 MEAN CORPUSCULAR VOLUME (BEAKER) (test tywe=250) 85.6 fL 79.0-92.2 MEAN CORPUSCULAR HEMOGLOBIN (BEAKER) (test 28.9 pg 25.7-32.2 huyr=640) MEAN CORPUSCULAR HEMOGLOBIN CONC (BEAKER) (test 33.7 GM/DL 32.3-36.5 fkki=438) RED CELL DISTRIBUTION WIDTH (BEAKER) (test 15.4 % 11.6-14.4 pnzh=026) PLATELET COUNT (BEAKER) (test etvo=000) 191 K/CU MM 150-450 MEAN PLATELET VOLUME (BEAKER) (test lymh=705) 10.2 fL 9.4-12.4 NUCLEATED RED BLOOD CELLS (BEAKER) (test 0 /100 WBC 0-0 xlch=473) BLOOD GAS, [id number] 04:44:00 Test Item Value Reference Range Comments PH ARTERIAL (BEAKER) (test dehs=248) 7.48 7.35-7.45 PCO2 ARTERIAL (BEAKER) (test bwag=686) 38 mmHg 35-45 PO2 ARTERIAL (BEAKER) (test uxja=167) 79 mmHg 80-90 O2 SATURATION ARTERIAL (BEAKER) (test ccja=704) 96.5 % 96.0-97.0 HCO3 ARTERIAL (BEAKER) (test hcaa=112) 28 mmol/L 21-29 BASE EXCESS ARTERIAL (BEAKER) (test zfcd=950) 3.8 mmol/L -2.0-3.0 PATIENT TEMPERATURE (BEAKER) (test jejw=6473) 36.7 C FIO2 (BEAKER) (test fmps=5614) 36.0 % [id number] 02:44:00 Test Item Value Reference Range Comments PARTIAL THROMBOPLASTIN TIME (BEAKER) (test 81.9 seconds 22.5-36.0 tyuu=934) BASIC METABOLIC [id number] 23:02:00 Test Item Value Reference Range Comments SODIUM (BEAKER) (test 127 meq/L 136-145 hwov=659) POTASSIUM (BEAKER) (test 3.6 meq/L 3.5-5.1 alvr=837) CHLORIDE (BEAKER) (test 93 meq/L 98-107 qpmu=241) CO2 (BEAKER) (test 24 meq/L 22-29 gklt=253) BLOOD UREA NITROGEN 82 mg/dL 7-21 (BEAKER) (test fryc=831) CREATININE (BEAKER) (test 3.01 mg/dL 0.57-1.25 uwcj=276) GLUCOSE RANDOM (BEAKER) 129 mg/dL 70-105 (test gjmw=662) CALCIUM (BEAKER) (test 8.3 mg/dL 8.4-10.2 popa=791) EGFR (BEAKER) (test 21 mL/min/1.73 sq m ESTIMATED GFR IS NOT xagf=5726) ACCURATE CREATININE CLEARANCE IN PREDICTING GLOMERULAR FILTRATION RATE. ESTIMATED GFR IS NOT APPLICABLE FOR DIALYSIS PATIENTS. [employer] Analyst ID - [id number] 22:50:00 Test Item Value Reference Range Comments MAGNESIUM (BEAKER) (test ymfe=309) 2.0 mg/dL 1.6-2.6 Reverse Logistics Analyst ID - BSOXYGEN SATURATION, [id number] 22:39:00 Test Item Value Reference Range Comments O2 SATURATION (MEASURED) (BEAKER) (test kcpp=4522) 57.2 % CBC (HEMOGRAM ONLY)2019-06-05 22:31:00 Test Item Value Reference Range Comments WHITE BLOOD CELL COUNT (BEAKER) (test bxzu=475) 9.8 K/ L 3.5-10.5 RED BLOOD CELL COUNT (BEAKER) (test atde=118) 3.04 M/ L 4.63-6.08 HEMOGLOBIN (BEAKER) (test hvrp=507) 8.9 GM/DL 13.7-17.5 HEMATOCRIT (BEAKER) (test zmvm=899) 26.0 % 40.1-51.0 MEAN CORPUSCULAR VOLUME (BEAKER) (test torg=347) 85.5 fL 79.0-92.2 MEAN CORPUSCULAR HEMOGLOBIN (BEAKER) (test 29.3 pg 25.7-32.2 vpxh=254) MEAN CORPUSCULAR HEMOGLOBIN CONC (BEAKER) (test 34.2 GM/DL 32.3-36.5 diiv=751) RED CELL DISTRIBUTION WIDTH (BEAKER) (test 15.2 % 11.6-14.4 fjio=943) PLATELET COUNT (BEAKER) (test ghbh=469) 183 K/CU MM 150-450 MEAN PLATELET VOLUME (BEAKER) (test uopj=029) 10.2 fL 9.4-12.4 NUCLEATED RED BLOOD CELLS (BEAKER) (test 0 /100 WBC 0-0 irem=062) OXYGEN SATURATION, [id number] 15:52:00 Test Item Value Reference Range Comments O2 SATURATION (MEASURED) (BEAKER) (test zqbg=3269) 49.7 % [id number] 15:43:00 Test Item Value Reference Range Comments MAGNESIUM (BEAKER) (test pykq=331) 2.0 mg/dL 1.6-2.6 Reverse Logistics Analyst ID - [id number] 15:42:00 Test Item Value Reference Range Comments PARTIAL THROMBOPLASTIN TIME (BEAKER) (test 84.7 seconds 22.5-36.0 ahau=334) Draw baseline aPTT prior to infusionCBC (HEMOGRAM ONLY)2019-06-05 15:24:00 Test Item Value Reference Range Comments WHITE BLOOD CELL COUNT (BEAKER) (test kvzc=227) 10.9 K/ L 3.5-10.5 RED BLOOD CELL COUNT (BEAKER) (test fzha=582) 2.96 M/ L 4.63-6.08 HEMOGLOBIN (BEAKER) (test zglv=990) 8.7 GM/DL 13.7-17.5 HEMATOCRIT (BEAKER) (test ijjd=927) 25.4 % 40.1-51.0 MEAN CORPUSCULAR VOLUME (BEAKER) (test ipzz=139) 85.8 fL 79.0-92.2 MEAN CORPUSCULAR HEMOGLOBIN (BEAKER) (test 29.4 pg 25.7-32.2 nxsj=222) MEAN CORPUSCULAR HEMOGLOBIN CONC (BEAKER) (test 34.3 GM/DL 32.3-36.5 pkpn=779) RED CELL DISTRIBUTION WIDTH (BEAKER) (test 15.1 % 11.6-14.4 dhxz=988) PLATELET COUNT (BEAKER) (test ubmh=368) 201 K/CU MM 150-450 MEAN PLATELET VOLUME (BEAKER) (test klhy=090) 10.2 fL 9.4-12.4 NUCLEATED RED BLOOD CELLS (BEAKER) (test 0 /100 WBC 0-0 becb=447) CREATININE, RANDOM [id number] 13:58:00 Test Item Value Reference Range Comments CREATININE URINE (BEAKER) (test tdqs=277) 22.9 mg/dL Reference Range: No NormalsOperator ID - NTPOSMOLALITY, [id number] 13:46:00 Test Item Value Reference Range Comments OSMOLALITY URINE (BEAKER) (test ajei=129) 298 mOsm/kg 40-1,400 OXYGEN SATURATION, [id number] 12:16:00 Test Item Value Reference Range Comments O2 SATURATION (MEASURED) (BEAKER) (test ffrq=4878) 46.8 % LACTATE DEHYDROGENASE (LDH)2019-06-05 11:49:00 Test Item Value Reference Range Comments LACTATE DEHYDROGENASE (BEAKER) (test wkqu=412) 1289 U/L 125-220 Reverse Logistics Analyst ID - NTPPLASMA FREE [id number] 10:20:00 Test Item Value Reference Range Comments HEMOGLOBIN PLASMA (BEAKER) (test anfk=3953) 120.0 mg/dl 0.0-30.0 CHLORIDE, RANDOM [id number] 09:51:00 Test Item Value Reference Range Comments CHLORIDE URINE (BEAKER) (test pkya=413) 94 meq/L Reference Range: No NormalsOperator ID - NTPPOTASSIUM, RANDOM [id number] 09 :51:00 Test Item Value Reference Range Comments POTASSIUM URINE (BEAKER) (test yqab=630) 19.7 meq/L Reference Range: No NormalsOperator ID - NTPSODIUM, RANDOM [id number] 09:51 :00 Test Item Value Reference Range Comments SODIUM URINE (BEAKER) (test ltkt=816) 83 meq/L Reference Range: No NormalsOperator ID - NTPUREA NITROGEN, RANDOM [id number] 09:51:00 Test Item Value Reference Range Comments UREA NITROGEN URINE (BEAKER) (test hzxw=644) 209 mg/dL Reference Range: No NormalsOperator ID - NTPURIC ACID, RANDOM [id number] 09 :51:00 Test Item Value Reference Range Comments URIC ACID, URINE (BEAKER) (test asve=1108) 12.5 mg/dL Reference Range: No NormalsOperator ID - NTPOperator ID - NTPHEPARIN ASSAY - LOW MOLECULAR [id number] 09:34:00 Test Item Value Reference Range Comments LOVENOX-ANTI 10A (BEAKER) (test xwof=2757) 0.15 u/ml 0.60-2.00 Anti-Factor 10-A Level (Heparin Assay for Low Molecular Weight Heparin) Monitoring Guidelines: Blood samples should be obtained 4 hours post subcutaneous injection (time of Peak level) Therapeutic Peak Levels: 0.6-1.0 units/mL twice daily enoxaparin 1.0-2.0 units/mL once daily enoxaparinRef: CHEST 2012;141:[id number] (TEG)2019-06-05 09:30:00 Test Item Value Reference Range Comments TEG ACTIVATED CLOTTING TIME (BEAKER) (test 13.1 minutes 4.0-7.0 snfq=8754) TEG FIBRINOGEN ACTIVITY (BEAKER) (test 46.9 degrees 61.0-73.0 ojba=4046) TEG PLT. AGGREGATION (BEAKER) (test rccl=2057) 78.6 MM 55.0-65.0 TEG FIBRINOLYSIS (BEAKER) (test tuod=5356) 0.0 % 0.0-5.0 TGH ACTIVATED CLOTTING TIME (BEAKER) (test 5.8 minutes 4.0-7.0 wibq=6974) TGH FIBRINOGEN ACTIVITY (BEAKER) (test 77.0 degrees 61.0-73.0 facw=8793) TGH PLT. AGGREGATION (BEAKER) (test cpok=5426) 76.0 MM 55.0-65.0 TGH FIBRINOLYSIS (BEAKER) (test svdd=0683) 1.4 % 0.0-5.0 BLOOD GAS, [id number] 09:02:00 Test Item Value Reference Range Comments PH ARTERIAL (BEAKER) (test xmpb=576) 7.51 7.35-7.45 PCO2 ARTERIAL (BEAKER) (test opjq=686) 34 mmHg 35-45 PO2 ARTERIAL (BEAKER) (test moww=540) 119 mmHg 80-90 O2 SATURATION ARTERIAL (BEAKER) (test inpr=820) 98.7 % 96.0-97.0 HCO3 ARTERIAL (BEAKER) (test lvhs=649) 26 mmol/L 21-29 BASE EXCESS ARTERIAL (BEAKER) (test qghb=071) 2.8 mmol/L -2.0-3.0 PATIENT TEMPERATURE (BEAKER) (test suqf=5100) 36.6 C FIO2 (BEAKER) (test gwhx=7689) 44.0 % BASIC METABOLIC [id number] 08:42:00 Test Item Value Reference Range Comments SODIUM (BEAKER) (test 128 meq/L 136-145 onnq=387) POTASSIUM (BEAKER) (test 3.5 meq/L 3.5-5.1 ykkb=537) CHLORIDE (BEAKER) (test 92 meq/L 98-107 nybt=391) CO2 (BEAKER) (test 26 meq/L 22-29 lkee=954) BLOOD UREA NITROGEN 72 mg/dL 7-21 (BEAKER) (test elcn=922) CREATININE (BEAKER) (test 2.97 mg/dL 0.57-1.25 ozmm=026) GLUCOSE RANDOM (BEAKER) 126 mg/dL 70-105 (test ewlq=618) CALCIUM (BEAKER) (test 9.0 mg/dL 8.4-10.2 tfpu=566) EGFR (BEAKER) (test 21 mL/min/1.73 sq m ESTIMATED GFR IS NOT woal=2960) ACCURATE CREATININE CLEARANCE IN PREDICTING GLOMERULAR FILTRATION RATE. ESTIMATED GFR IS NOT APPLICABLE FOR DIALYSIS PATIENTS. [employer] Analyst ID - [id number] 08:33:00 Test Item Value Reference Range Comments MAGNESIUM (BEAKER) (test aukc=064) 2.1 mg/dL 1.6-2.6 Reverse Logistics Analyst ID - [id number] 08:26:00 Test Item Value Reference Range Comments PROTIME (BEAKER) (test qsdn=419) 15.1 seconds 11.9-14.2 INR (BEAKER) (test kvvr=347) 1.2 <=5.9 PARTIAL THROMBOPLASTIN TIME (BEAKER) (test 71.2 seconds 22.5-36.0 rqpk=668) Effective 10/12/2018: PT Reference Range ChangeNew: 11.9-14.2 Previous: 11.7- 14.7RECOMMENDED COUMADIN/WARFARIN INR THERAPY RANGESSTANDARD DOSE: 2.0-3.0 Includes: PROPHYLAXIS for venous thrombosis, systemic embolization; TREATMENT for venous thrombosis and/or pulmonary embolus.HIGH RISK: Target INR is2.5-3.5 for patients wiht mechanical heart valves.CBC W/PLT COUNT & AUTO [id number] 08:21:00 Test Item Value Reference Range Comments WHITE BLOOD CELL COUNT (BEAKER) (test wbde=963) 10.0 K/ L 3.5-10.5 RED BLOOD CELL COUNT (BEAKER) (test ycbp=465) 2.80 M/ L 4.63-6.08 HEMOGLOBIN (BEAKER) (test hjsx=515) 8.2 GM/DL 13.7-17.5 HEMATOCRIT (BEAKER) (test ckao=368) 23.9 % 40.1-51.0 MEAN CORPUSCULAR VOLUME (BEAKER) (test args=968) 85.4 fL 79.0-92.2 MEAN CORPUSCULAR HEMOGLOBIN (BEAKER) (test 29.3 pg 25.7-32.2 cwge=380) MEAN CORPUSCULAR HEMOGLOBIN CONC (BEAKER) (test 34.3 GM/DL 32.3-36.5 jbfo=608) RED CELL DISTRIBUTION WIDTH (BEAKER) (test 15.6 % 11.6-14.4 jxpk=501) PLATELET COUNT (BEAKER) (test lvgf=142) 201 K/CU MM 150-450 MEAN PLATELET VOLUME (BEAKER) (test lloo=896) 10.1 fL 9.4-12.4 NUCLEATED RED BLOOD CELLS (BEAKER) (test 0 /100 WBC 0-0 ntvz=190) NEUTROPHILS RELATIVE PERCENT (BEAKER) (test 81 % exor=470) LYMPHOCYTES RELATIVE PERCENT (BEAKER) (test 5 % pjbf=474) MONOCYTES RELATIVE PERCENT (BEAKER) (test 10 % ojkg=437) EOSINOPHILS RELATIVE PERCENT (BEAKER) (test 3 % gsdk=006) BASOPHILS RELATIVE PERCENT (BEAKER) (test 0 % ixuq=776) NEUTROPHILS ABSOLUTE COUNT (BEAKER) (test 8.08 K/ L 1.78-5.38 ueij=024) LYMPHOCYTES ABSOLUTE COUNT (BEAKER) (test 0.54 K/ L 1.32-3.57 ytuf=785) MONOCYTES ABSOLUTE COUNT (BEAKER) (test 0.97 K/ L 0.30-0.82 awwl=835) EOSINOPHILS ABSOLUTE COUNT (BEAKER) (test 0.28 K/ L 0.04-0.54 ztid=043) BASOPHILS ABSOLUTE COUNT (BEAKER) (test 0.02 K/ L 0.01-0.08 brbc=903) IMMATURE GRANULOCYTES-RELATIVE PERCENT (BEAKER) 1 % 0-1 (test ioad=0677) BASIC METABOLIC [id number] 07:24:00 Test Item Value Reference Range Comments SODIUM (BEAKER) (test 129 meq/L 136-145 pycl=911) POTASSIUM (BEAKER) (test 3.7 meq/L 3.5-5.1 hwva=947) CHLORIDE (BEAKER) (test 94 meq/L 98-107 iicg=363) CO2 (BEAKER) (test 25 meq/L 22-29 txnh=055) BLOOD UREA NITROGEN 74 mg/dL 7-21 (BEAKER) (test vtjq=515) CREATININE (BEAKER) (test 2.96 mg/dL 0.57-1.25 jmdj=981) GLUCOSE RANDOM (BEAKER) 121 mg/dL 70-105 (test eykw=607) CALCIUM (BEAKER) (test 8.6 mg/dL 8.4-10.2 gauq=720) EGFR (BEAKER) (test 21 mL/min/1.73 sq m ESTIMATED GFR IS NOT ycou=4314) ACCURATE CREATININE CLEARANCE IN PREDICTING GLOMERULAR FILTRATION RATE. ESTIMATED GFR IS NOT APPLICABLE FOR DIALYSIS PATIENTS. Reverse Log[employer] Analyst ID - NTPVANCOMYCIN LEVEL, [id number] 03:59:00 Test Item Value Reference Range Comments VANCOMYCIN RANDOM (BEAKER) (test osyr=708) 17.8 ug/mL Reference Range: No NormalsOperator ID - RUDI [id number] 03:52:00 Test Item Value Reference Range Comments PHOSPHORUS (BEAKER) (test qkny=291) 4.4 mg/dL 2.3-4.7 Reverse Logistics Analyst ID - RUDI LLACTATE DEHYDROGENASE (LDH)2019-06-05 03:52:00 Test Item Value Reference Range Comments LACTATE DEHYDROGENASE (BEAKER) (test oeoh=499) 968 U/L 125-220 Reverse Logistics Analyst ID - PIAYA LLACTIC ACID, [id number] 03:48:00 Test Item Value Reference Range Comments LACTATE BLOOD ARTERIAL (2) 0.8 mmol/L 0.5-2.2 Specimen slightly hemolyzed (BEAKER) (test ukak=0691) Reverse Logistics Analyst ID - RUDI [id number] 03:44:00 Test Item Value Reference Range Comments PARTIAL THROMBOPLASTIN TIME (BEAKER) (test 78.3 seconds 22.5-36.0 dghd=240) OXYGEN SATURATION, [id number] 03:42:00 Test Item Value Reference Range Comments O2 SATURATION (MEASURED) (BEAKER) (test nznw=5205) 57.9 % RAD, CHEST, 1 VIEW, NON [id number] 03:35:00Reason for exam:->s/p ACBShould this be performed at the bedside?->YesFINAL REPORT RAD, CHEST, 1 VIEW, NON DEPT INDICATION: s/p ACB COMPARISON: Prior day' s exam FINDINGS: Portable frontal view of the chest. IMPRESSION: Support Lines: Right IJ [place] loops within the mid SVC level with [...] Comments WHITE BLOOD CELL COUNT (BEAKER) (test hzth=502) 9.5 K/ L 3.5-10.5 RED BLOOD CELL COUNT (BEAKER) (test vwiy=246) 2.63 M/ L 4.63-6.08 HEMOGLOBIN (BEAKER) (test eqqz=985) 7.7 GM/DL 13.7-17.5 HEMATOCRIT (BEAKER) (test uesf=401) 22.5 % 40.1-51.0 MEAN CORPUSCULAR VOLUME (BEAKER) (test wumc=549) 85.6 fL 79.0-92.2 MEAN CORPUSCULAR HEMOGLOBIN (BEAKER) (test 29.3 pg 25.7-32.2 negs=448) MEAN CORPUSCULAR HEMOGLOBIN CONC (BEAKER) (test 34.2 GM/DL 32.3-36.5 mtiv=497) RED CELL DISTRIBUTION WIDTH (BEAKER) (test 15.6 % 11.6-14.4 mftm=794) PLATELET COUNT (BEAKER) (test xwdf=896) 197 K/CU MM 150-450 MEAN PLATELET VOLUME (BEAKER) (test vndd=733) 10.3 fL 9.4-12.4 NUCLEATED RED BLOOD CELLS (BEAKER) (test 0 /100 WBC 0-0 dfzc=379) BASIC METABOLIC [id number] 01:17:00 Test Item Value Reference Range Comments SODIUM (BEAKER) (test 127 meq/L 136-145 jzvj=523) POTASSIUM (BEAKER) (test 3.8 meq/L 3.5-5.1 Specimen slightly dask=241) hemolyzed CHLORIDE (BEAKER) (test 93 meq/L 98-107 xujd=951) CO2 (BEAKER) (test 23 meq/L 22-29 bwir=081) BLOOD UREA NITROGEN 75 mg/dL 7-21 (BEAKER) (test ctmz=144) CREATININE (BEAKER) (test 2.92 mg/dL 0.57-1.25 Specimen slightly xztb=095) hemolyzed GLUCOSE RANDOM (BEAKER) 121 mg/dL 70-105 (test mkas=912) CALCIUM (BEAKER) (test 8.4 mg/dL 8.4-10.2 sxqz=079) EGFR (BEAKER) (test 21 mL/min/1.73 sq m ESTIMATED GFR IS NOT rmle=5051) ACCURATE CREATININE CLEARANCE IN PREDICTING GLOMERULAR FILTRATION RATE. ESTIMATED GFR IS NOT APPLICABLE FOR DIALYSIS PATIENTS. Reverse Logistics Analyst ID - PIAYA [id number] 01:01:00 Test Item Value Reference Range Comments MAGNESIUM (BEAKER) (test 2.1 mg/dL 1.6-2.6 Specimen slightly hemolyzed zsfp=194) Reverse Logistics Analyst ID - PIAYA LBASIC METABOLIC [id number] 16:20:00 Test Item Value Reference Range Comments SODIUM (BEAKER) (test 130 meq/L 136-145 vvjd=552) POTASSIUM (BEAKER) (test 3.4 meq/L 3.5-5.1 nvxp=805) CHLORIDE (BEAKER) (test 95 meq/L 98-107 fzac=015) CO2 (BEAKER) (test 25 meq/L 22-29 vubh=071) BLOOD UREA NITROGEN 73 mg/dL 7-21 (BEAKER) (test usft=959) CREATININE (BEAKER) (test 3.02 mg/dL 0.57-1.25 webc=348) GLUCOSE RANDOM (BEAKER) 137 mg/dL 70-105 (test jweo=133) CALCIUM (BEAKER) (test 8.3 mg/dL 8.4-10.2 pjrn=120) EGFR (BEAKER) (test 21 mL/min/1.73 sq m ESTIMATED GFR IS NOT vnqm=8190) ACCURATE CREATININE CLEARANCE IN PREDICTING GLOMERULAR FILTRATION RATE. ESTIMATED GFR IS NOT APPLICABLE FOR DIALYSIS PATIENTS. Reverse Logistics Analyst ID - [facility] [id number] 16:14:00 Test Item Value Reference Range Comments MAGNESIUM (BEAKER) (test tuva=253) 2.1 mg/dL 1.6-2.6 Reverse Logistics Analyst ID - [facility] [id number] 16:05:00 Test Item Value Reference Range Comments PARTIAL THROMBOPLASTIN TIME (BEAKER) (test 75.2 seconds 22.5-36.0 gayv=892) OXYGEN SATURATION, [id number] 14:17:00 Test Item Value Reference Range Comments O2 SATURATION (MEASURED) (BEAKER) (test oqfo=0496) 59.0 % LACTATE DEHYDROGENASE (LDH)2019-06-04 13:18:00 Test Item Value Reference Range Comments LACTATE DEHYDROGENASE (BEAKER) (test wrdq=065) 767 U/L 125-220 Reverse Logistics Analyst ID - [facility] [id number] 11:17:00 Test Item Value Reference Range Comments PARTIAL THROMBOPLASTIN TIME (BEAKER) (test 75.1 seconds 22.5-36.0 kwgb=378) VANCOMYCIN LEVEL, [id number] 10:21:00 Test Item Value Reference Range Comments VANCOMYCIN RANDOM (BEAKER) (test onuw=560) 24.3 ug/mL Reference Range: No NormalsOperator ID - [facility] CBASIC METABOLIC [id number] 06 :10:00 Test Item Value Reference Range Comments SODIUM (BEAKER) (test 131 meq/L 136-145 zrrk=492) POTASSIUM (BEAKER) (test 3.7 meq/L 3.5-5.1 dayi=469) CHLORIDE (BEAKER) (test 96 meq/L 98-107 upce=925) CO2 (BEAKER) (test 22 meq/L 22-29 cvpa=195) BLOOD UREA NITROGEN 76 mg/dL 7-21 (BEAKER) (test gcsx=820) CREATININE (BEAKER) (test 3.28 mg/dL 0.57-1.25 obqy=316) GLUCOSE RANDOM (BEAKER) 133 mg/dL 70-105 (test togm=186) CALCIUM (BEAKER) (test 8.7 mg/dL 8.4-10.2 xsde=938) EGFR (BEAKER) (test 19 mL/min/1.73 sq m ESTIMATED GFR IS NOT rdjt=4900) ACCURATE CREATININE CLEARANCE IN PREDICTING GLOMERULAR FILTRATION RATE. ESTIMATED GFR IS NOT APPLICABLE FOR DIALYSIS PATIENTS. Reverse Logistics Analyst ID - RUDI [id number] 06:07:00 Test Item Value Reference Range Comments PHOSPHORUS (BEAKER) (test jwcw=001) 5.7 mg/dL 2.3-4.7 Reverse Logistics Analyst ID - RUDI [id number] 06:07:00 Test Item Value Reference Range Comments MAGNESIUM (BEAKER) (test uwso=321) 2.2 mg/dL 1.6-2.6 Reverse Logistics Analyst ID - RUDI LLACTATE DEHYDROGENASE (LDH)2019-06-04 06:07:00 Test Item Value Reference Range Comments LACTATE DEHYDROGENASE (BEAKER) (test rlrk=464) 732 U/L 125-220 Reverse Logistics Analyst ID - RUDI LOXYGEN SATURATION, [id number] 05:12:00 Test Item Value Reference Range Comments O2 SATURATION (MEASURED) (BEAKER) (test plhr=7198) 61.9 % LACTIC ACID, [id number] 05:09:00 Test Item Value Reference Range Comments LACTATE BLOOD ARTERIAL (2) (BEAKER) (test 1.0 mmol/L 0.5-2.2 pfpv=9044) Reverse Logistics Analyst ID - RUDI LBLOOD GAS, [id number] 05:06:00 Test Item Value Reference Range Comments PH ARTERIAL (BEAKER) (test yjmj=359) 7.50 7.35-7.45 PCO2 ARTERIAL (BEAKER) (test opsl=514) 32 mmHg 35-45 PO2 ARTERIAL (BEAKER) (test gccx=458) 81 mmHg 80-90 O2 SATURATION ARTERIAL (BEAKER) (test hgxe=690) 97.0 % 96.0-97.0 HCO3 ARTERIAL (BEAKER) (test yazc=277) 24 mmol/L 21-29 BASE EXCESS ARTERIAL (BEAKER) (test lyhy=290) 0.9 mmol/L -2.0-3.0 PATIENT TEMPERATURE (BEAKER) (test ouuf=9923) 36.8 C FIO2 (BEAKER) (test mcdm=6552) 60.0 % [id number] 05:05:00 Test Item Value Reference Range Comments PARTIAL THROMBOPLASTIN TIME (BEAKER) (test 63.1 seconds 22.5-36.0 mmwx=943) CBC (HEMOGRAM ONLY)2019-06-04 05:02:00 Test Item Value Reference Range Comments WHITE BLOOD CELL COUNT (BEAKER) (test oxmo=878) 9.3 K/ L 3.5-10.5 RED BLOOD CELL COUNT (BEAKER) (test cuag=143) 2.87 M/ L 4.63-6.08 HEMOGLOBIN (BEAKER) (test ovnh=419) 8.5 GM/DL 13.7-17.5 HEMATOCRIT (BEAKER) (test omvi=712) 24.5 % 40.1-51.0 MEAN CORPUSCULAR VOLUME (BEAKER) (test lbrt=086) 85.4 fL 79.0-92.2 MEAN CORPUSCULAR HEMOGLOBIN (BEAKER) (test 29.6 pg 25.7-32.2 oxhb=957) MEAN CORPUSCULAR HEMOGLOBIN CONC (BEAKER) (test 34.7 GM/DL 32.3-36.5 ywux=742) RED CELL DISTRIBUTION WIDTH (BEAKER) (test 15.4 % 11.6-14.4 fhup=656) PLATELET COUNT (BEAKER) (test vyhv=921) 217 K/CU MM 150-450 MEAN PLATELET VOLUME (BEAKER) (test onxl=343) 10.2 fL 9.4-12.4 NUCLEATED RED BLOOD CELLS (BEAKER) (test 0 /100 WBC 0-0 ccud=220) RAD, CHEST, 1 VIEW, NON [id number] 04:21:00Reason for exam:->s/p ACBShould this be performed at the bedside?->YesFINAL REPORT RAD, CHEST, 1 VIEW, NON DEPT INDICATION: s/p ACB COMPARISON: Prior day' s exam FINDINGS: Portable frontal view of the chest. IMPRESSION: Support Lines: Extubation.Removal of enteric tube. Right PICC, intraventricular assist device, and right IJ Buena-Allison catheterstable. Lungs and pleura: Increased pulmonary edema. Bilateral pleural effusions and basilar atelectasis are stable in appearance. No pneumothorax.Heart and mediastinum: Stable cardiomegaly. Additionalfindings: None. Signed: Luis Fernando Grey MDReport Verified Date/Time: 06/04/2019 04:21:15 Electronically signed by: LUIS FERNANDO GREY MD on 04:21 AMBASIC METABOLIC [id number] 00:28:00 Test Item Value Reference Range Comments SODIUM (BEAKER) (test 130 meq/L 136-145 rfsg=022) POTASSIUM (BEAKER) (test 3.8 meq/L 3.5-5.1 buhz=813) CHLORIDE (BEAKER) (test 95 meq/L 98-107 nivf=114) CO2 (BEAKER) (test 23 meq/L 22-29 lqdt=971) BLOOD UREA NITROGEN 78 mg/dL 7-21 (BEAKER) (test rmpi=039) CREATININE (BEAKER) (test 3.42 mg/dL 0.57-1.25 efqb=775) GLUCOSE RANDOM (BEAKER) 144 mg/dL 70-105 (test ukqi=909) CALCIUM (BEAKER) (test 8.3 mg/dL 8.4-10.2 hhbl=046) EGFR (BEAKER) (test 18 mL/min/1.73 sq m ESTIMATED GFR IS NOT qovl=3806) ACCURATE CREATININE CLEARANCE IN PREDICTING GLOMERULAR FILTRATION RATE. ESTIMATED GFR IS NOT APPLICABLE FOR DIALYSIS PATIENTS. [employer] Analyst ID - [id number] 00:22:00 Test Item Value Reference Range Comments PARTIAL THROMBOPLASTIN TIME (BEAKER) (test 108.8 seconds 22.5-36.0 upco=807) [id number] 00:08:00 Test Item Value Reference Range Comments MAGNESIUM (BEAKER) (test hqod=634) 2.2 mg/dL 1.6-2.6 [employer] Analyst ID - BSOXYGEN SATURATION, [id number] 18:47:00 Test Item Value Reference Range Comments O2 SATURATION (MEASURED) (BEAKER) (test qldy=9446) 60.0 % BLOOD GAS, [id number] 18:28:00 Test Item Value Reference Range Comments PH ARTERIAL (BEAKER) (test oddf=419) 7.49 7.35-7.45 PCO2 ARTERIAL (BEAKER) (test qmde=404) 31 mmHg 35-45 PO2 ARTERIAL (BEAKER) (test tjzg=835) 95 mmHg 80-90 O2 SATURATION ARTERIAL (BEAKER) (test hwvh=431) 97.7 % 96.0-97.0 HCO3 ARTERIAL (BEAKER) (test rbzi=683) 23 mmol/L 21-29 BASE EXCESS ARTERIAL (BEAKER) (test ymmc=446) 0.2 mmol/L -2.0-3.0 PATIENT TEMPERATURE (BEAKER) (test heqz=4798) 37.4 C FIO2 (BEAKER) (test xjjy=7548) 80.0 % BASIC METABOLIC [id number] 17:29:00 Test Item Value Reference Range Comments SODIUM (BEAKER) (test 130 meq/L 136-145 brpz=610) POTASSIUM (BEAKER) (test 3.9 meq/L 3.5-5.1 lgyt=278) CHLORIDE (BEAKER) (test 97 meq/L 98-107 otgs=289) CO2 (BEAKER) (test 23 meq/L 22-29 leur=576) BLOOD UREA NITROGEN 73 mg/dL 7-21 (BEAKER) (test eyyo=344) CREATININE (BEAKER) (test 3.56 mg/dL 0.57-1.25 pzcu=416) GLUCOSE RANDOM (BEAKER) 143 mg/dL 70-105 (test jkxy=131) CALCIUM (BEAKER) (test 8.5 mg/dL 8.4-10.2 luqd=241) EGFR (BEAKER) (test 17 mL/min/1.73 sq m ESTIMATED GFR IS NOT zofh=0774) ACCURATE CREATININE CLEARANCE IN PREDICTING GLOMERULAR FILTRATION RATE. ESTIMATED GFR IS NOT APPLICABLE FOR DIALYSIS PATIENTS. [employer] Analyst ID - [id number] 17:27:00 Test Item Value Reference Range Comments MAGNESIUM (BEAKER) (test ollv=091) 2.3 mg/dL 1.6-2.6 [employer] Analyst ID - [id number] 17:12:00 Test Item Value Reference Range Comments PARTIAL THROMBOPLASTIN TIME (BEAKER) (test 93.2 seconds 22.5-36.0 dqie=389) BLOOD GAS, [id number] 12:33:00 Test Item Value Reference Range Comments PH ARTERIAL (BEAKER) (test tzcm=170) 7.49 7.35-7.45 PCO2 ARTERIAL (BEAKER) (test kwbu=510) 32 mmHg 35-45 PO2 ARTERIAL (BEAKER) (test ujhk=486) 89 mmHg 80-90 O2 SATURATION ARTERIAL (BEAKER) (test ciik=655) 97.2 % 96.0-97.0 HCO3 ARTERIAL (BEAKER) (test dari=187) 24 mmol/L 21-29 BASE EXCESS ARTERIAL (BEAKER) (test ynob=417) 0.8 mmol/L -2.0-3.0 PATIENT TEMPERATURE (BEAKER) (test qkjs=9248) 37.8 C FIO2 (BEAKER) (test cmuu=3941) 80.0 % OXYGEN SATURATION, [id number] 11:47:00 Test Item Value Reference Range Comments O2 SATURATION (MEASURED) (BEAKER) (test ogdd=3038) 47.0 % BLOOD GAS, [id number] 11:34:00 Test Item Value Reference Range Comments PH ARTERIAL (BEAKER) (test mphb=833) 7.51 7.35-7.45 PCO2 ARTERIAL (BEAKER) (test tyww=243) 32 mmHg 35-45 PO2 ARTERIAL (BEAKER) (test gjur=777) 64 mmHg 80-90 O2 SATURATION ARTERIAL (BEAKER) (test skby=853) 93.7 % 96.0-97.0 HCO3 ARTERIAL (BEAKER) (test cdgg=107) 24 mmol/L 21-29 BASE EXCESS ARTERIAL (BEAKER) (test nrut=914) 1.8 mmol/L -2.0-3.0 PATIENT TEMPERATURE (BEAKER) (test hnmg=7702) 37.9 C FIO2 (BEAKER) (test dvmt=5794) 44.0 % [id number] 09:56:00 Test Item Value Reference Range Comments PARTIAL THROMBOPLASTIN TIME (BEAKER) (test 39.8 seconds 22.5-36.0 ndjq=841) 6 hours after starting heparin infusion and as indicated per sliding scaleBASIC METABOLIC [id number] 08:39:00 Test Item Value Reference Range Comments SODIUM (BEAKER) (test 129 meq/L 136-145 nwnx=331) POTASSIUM (BEAKER) (test 4.4 meq/L 3.5-5.1 juvs=982) CHLORIDE (BEAKER) (test 94 meq/L 98-107 qmkd=495) CO2 (BEAKER) (test 23 meq/L 22-29 yvfl=599) BLOOD UREA NITROGEN 75 mg/dL 7-21 (BEAKER) (test xtwn=423) CREATININE (BEAKER) (test 3.65 mg/dL 0.57-1.25 meyd=274) GLUCOSE RANDOM (BEAKER) 134 mg/dL 70-105 (test odix=546) CALCIUM (BEAKER) (test 8.4 mg/dL 8.4-10.2 ebcg=748) EGFR (BEAKER) (test 17 mL/min/1.73 sq m ESTIMATED GFR IS NOT keej=4130) ACCURATE CREATININE CLEARANCE IN PREDICTING GLOMERULAR FILTRATION RATE. ESTIMATED GFR IS NOT APPLICABLE FOR DIALYSIS PATIENTS. Reverse Logistics Analyst ID - [facility] [id number] 08:37:00 Test Item Value Reference Range Comments MAGNESIUM (BEAKER) (test nykq=530) 2.3 mg/dL 1.6-2.6 Reverse Logistics Analyst ID - [facility] ELVIN, CHEST, 1 VIEW, NON [id number] 07:39:00Reason for exam:->s/p ACBShould this be performed [...] MDReport Verified Date/Time: 06/03/2019 07:39:25 Reading Location: [facility] [id number] [facility] Consult Reading Room BASIC METABOLIC [id number] 06:11:00 Test Item Value Reference Range Comments SODIUM (BEAKER) (test 128 meq/L 136-145 cohh=233) POTASSIUM (BEAKER) (test 4.4 meq/L 3.5-5.1 dged=549) CHLORIDE (BEAKER) (test 96 meq/L 98-107 bpkz=458) CO2 (BEAKER) (test 21 meq/L 22-29 rixt=573) BLOOD UREA NITROGEN 70 mg/dL 7-21 (BEAKER) (test uytf=823) CREATININE (BEAKER) (test 3.48 mg/dL 0.57-1.25 mmva=371) GLUCOSE RANDOM (BEAKER) 140 mg/dL 70-105 (test ghmi=465) CALCIUM (BEAKER) (test 8.8 mg/dL 8.4-10.2 aszv=816) EGFR (BEAKER) (test 17 mL/min/1.73 sq m ESTIMATED GFR IS NOT sddd=4367) ACCURATE CREATININE CLEARANCE IN PREDICTING GLOMERULAR FILTRATION RATE. ESTIMATED GFR IS NOT APPLICABLE FOR DIALYSIS PATIENTS. Reverse Logistics Analyst ID - MARISABEL [id number] 05:02:00 Test Item Value Reference Range Comments PHOSPHORUS (BEAKER) (test vlnh=084) 6.0 mg/dL 2.3-4.7 Reverse Logistics Analyst ID - MARISABEL [id number] 05:02:00 Test Item Value Reference Range Comments MAGNESIUM (BEAKER) (test caee=471) 2.5 mg/dL 1.6-2.6 Reverse Logistics Analyst ID - MARISABEL MLACTATE DEHYDROGENASE (LDH)2019-06-03 05:02:00 Test Item Value Reference Range Comments LACTATE DEHYDROGENASE (BEAKER) (test kvhd=944) 496 U/L 125-220 Reverse Logistics Analyst ID - MARISABEL MBLOOD GAS, [id number] 04:18:00 Test Item Value Reference Range Comments PH ARTERIAL (BEAKER) (test rchv=235) 7.48 7.35-7.45 PCO2 ARTERIAL (BEAKER) (test zuiv=093) 32 mmHg 35-45 PO2 ARTERIAL (BEAKER) (test wxpu=669) 83 mmHg 80-90 O2 SATURATION ARTERIAL (BEAKER) (test gjub=492) 96.6 % 96.0-97.0 HCO3 ARTERIAL (BEAKER) (test wkxj=650) 23 mmol/L 21-29 BASE EXCESS ARTERIAL (BEAKER) (test afxy=781) 0.5 mmol/L -2.0-3.0 PATIENT TEMPERATURE (BEAKER) (test nbds=6329) 37.9 C FIO2 (BEAKER) (test xpcq=0404) 40.0 % OXYGEN SATURATION, [id number] 04:17:00 Test Item Value Reference Range Comments O2 SATURATION (MEASURED) (BEAKER) (test zklw=2505) 50.3 % CALCIUM, [id number] 04:16:00 Test Item Value Reference Range Comments CALCIUM IONIZED (BEAKER) (test jnpx=057) 1.13 mmol/L 1.12-1.27 PH, BLOOD (BEAKER) (test gnda=6264) 7.50 LACTIC ACID, [id number] 04:16:00 Test Item Value Reference Range Comments LACTATE BLOOD ARTERIAL (2) (BEAKER) (test 1.0 mmol/L 0.5-2.2 cggi=4801) Reverse Logistics Analyst ID - MARISABEL [id number] 04:14:00 Test Item Value Reference Range Comments PARTIAL THROMBOPLASTIN TIME (BEAKER) (test 37.8 seconds 22.5-36.0 sceq=658) CBC (HEMOGRAM ONLY)2019-06-03 04:06:00 Test Item Value Reference Range Comments WHITE BLOOD CELL COUNT (BEAKER) (test lyru=233) 9.2 K/ L 3.5-10.5 RED BLOOD CELL COUNT (BEAKER) (test uypk=230) 3.14 M/ L 4.63-6.08 HEMOGLOBIN (BEAKER) (test hpfw=100) 9.2 GM/DL 13.7-17.5 HEMATOCRIT (BEAKER) (test kqzz=861) 26.9 % 40.1-51.0 MEAN CORPUSCULAR VOLUME (BEAKER) (test wkkr=619) 85.7 fL 79.0-92.2 MEAN CORPUSCULAR HEMOGLOBIN (BEAKER) (test 29.3 pg 25.7-32.2 akkk=983) MEAN CORPUSCULAR HEMOGLOBIN CONC (BEAKER) (test 34.2 GM/DL 32.3-36.5 svpj=986) RED CELL DISTRIBUTION WIDTH (BEAKER) (test 15.3 % 11.6-14.4 sxqo=993) PLATELET COUNT (BEAKER) (test pprf=876) 239 K/CU MM 150-450 MEAN PLATELET VOLUME (BEAKER) (test zvcm=636) 10.2 fL 9.4-12.4 NUCLEATED RED BLOOD CELLS (BEAKER) (test 0 /100 WBC 0-0 bckw=945) LACTIC ACID, [id number] 02:53:00 Test Item Value Reference Range Comments LACTATE BLOOD ARTERIAL (2) (BEAKER) (test 1.0 mmol/L 0.5-2.2 qdnl=4496) Reverse Logistics Analyst ID - GALAPBASIC METABOLIC [id number] 00:37:00 Test Item Value Reference Range Comments SODIUM (BEAKER) (test 128 meq/L 136-145 snct=698) POTASSIUM (BEAKER) (test 4.5 meq/L 3.5-5.1 pygs=512) CHLORIDE (BEAKER) (test 96 meq/L 98-107 elvb=598) CO2 (BEAKER) (test 21 meq/L 22-29 dhqr=792) BLOOD UREA NITROGEN 70 mg/dL 7-21 (BEAKER) (test afyy=607) CREATININE (BEAKER) (test 3.64 mg/dL 0.57-1.25 ujnf=039) GLUCOSE RANDOM (BEAKER) 138 mg/dL 70-105 (test cghy=217) CALCIUM (BEAKER) (test 9.1 mg/dL 8.4-10.2 mmrv=731) EGFR (BEAKER) (test 17 mL/min/1.73 sq m ESTIMATED GFR IS NOT neca=2519) ACCURATE CREATININE CLEARANCE IN PREDICTING GLOMERULAR FILTRATION RATE. ESTIMATED GFR IS NOT APPLICABLE FOR DIALYSIS PATIENTS. Reverse Logistics Analyst ID - [id number] 00:30:00 Test Item Value Reference Range Comments MAGNESIUM (BEAKER) (test xrmb=798) 1.9 mg/dL 1.6-2.6 Reverse Logistics Analyst ID - GALAPBLOOD GAS, [id number] 00:25:00 Test Item Value Reference Range Comments PH ARTERIAL (BEAKER) (test rjiu=591) 7.47 7.35-7.45 PCO2 ARTERIAL (BEAKER) (test oyfr=895) 33 mmHg 35-45 PO2 ARTERIAL (BEAKER) (test yyte=387) 89 mmHg 80-90 O2 SATURATION ARTERIAL (BEAKER) (test oool=711) 97.0 % 96.0-97.0 HCO3 ARTERIAL (BEAKER) (test ctfp=704) 23 mmol/L 21-29 BASE EXCESS ARTERIAL (BEAKER) (test etih=011) 0.3 mmol/L -2.0-3.0 PATIENT TEMPERATURE (BEAKER) (test kyrx=9762) 37.9 C FIO2 (BEAKER) (test uogz=9607) 60.0 % OXYGEN SATURATION, [id number] 00:24:00 Test Item Value Reference Range Comments O2 SATURATION (MEASURED) (BEAKER) (test rmzh=8949) 48.0 % CBC W/PLT COUNT & AUTO [id number] 23:07:00 Test Item Value Reference Range Comments WHITE BLOOD CELL COUNT (BEAKER) (test gxne=672) 9.1 K/ L 3.5-10.5 RED BLOOD CELL COUNT (BEAKER) (test wifs=269) 3.06 M/ L 4.63-6.08 HEMOGLOBIN (BEAKER) (test sdoz=603) 8.9 GM/DL 13.7-17.5 HEMATOCRIT (BEAKER) (test bahj=192) 26.3 % 40.1-51.0 MEAN CORPUSCULAR VOLUME (BEAKER) (test vvka=669) 85.9 fL 79.0-92.2 MEAN CORPUSCULAR HEMOGLOBIN (BEAKER) (test 29.1 pg 25.7-32.2 ycbr=353) MEAN CORPUSCULAR HEMOGLOBIN CONC (BEAKER) (test 33.8 GM/DL 32.3-36.5 hlra=710) RED CELL DISTRIBUTION WIDTH (BEAKER) (test 15.2 % 11.6-14.4 eili=571) PLATELET COUNT (BEAKER) (test vqkn=576) 236 K/CU MM 150-450 MEAN PLATELET VOLUME (BEAKER) (test hixi=230) 10.1 fL 9.4-12.4 NUCLEATED RED BLOOD CELLS (BEAKER) (test 0 /100 WBC 0-0 ekhf=389) NEUTROPHILS RELATIVE PERCENT (BEAKER) (test 81 % kaab=024) LYMPHOCYTES RELATIVE PERCENT (BEAKER) (test 5 % lnsd=875) MONOCYTES RELATIVE PERCENT (BEAKER) (test 11 % cvzv=392) EOSINOPHILS RELATIVE PERCENT (BEAKER) (test 2 % qsmy=399) BASOPHILS RELATIVE PERCENT (BEAKER) (test 0 % ppua=242) NEUTROPHILS ABSOLUTE COUNT (BEAKER) (test 7.40 K/ L 1.78-5.38 qudu=141) LYMPHOCYTES ABSOLUTE COUNT (BEAKER) (test 0.43 K/ L 1.32-3.57 iazj=030) MONOCYTES ABSOLUTE COUNT (BEAKER) (test 1.04 K/ L 0.30-0.82 aldw=684) EOSINOPHILS ABSOLUTE COUNT (BEAKER) (test 0.20 K/ L 0.04-0.54 zayx=205) BASOPHILS ABSOLUTE COUNT (BEAKER) (test 0.02 K/ L 0.01-0.08 nkfe=388) IMMATURE GRANULOCYTES-RELATIVE PERCENT (BEAKER) 0 % 0-1 (test hqwk=9536) BLOOD GAS, [id number] 21:37:00 Test Item Value Reference Range Comments PH ARTERIAL (BEAKER) (test swtf=184) 7.47 7.35-7.45 PCO2 ARTERIAL (BEAKER) (test nfkn=913) 32 mmHg 35-45 PO2 ARTERIAL (BEAKER) (test rfsp=815) 96 mmHg 80-90 O2 SATURATION ARTERIAL (BEAKER) (test dozu=645) 97.5 % 96.0-97.0 HCO3 ARTERIAL (BEAKER) (test qwzg=313) 23 mmol/L 21-29 BASE EXCESS ARTERIAL (BEAKER) (test finj=678) -0.3 mmol/L -2.0-3.0 PATIENT TEMPERATURE (BEAKER) (test iwzu=0854) 37.8 C FIO2 (BEAKER) (test wzrw=2533) 60.0 % GLUCOSE-STAT [id number] 21:37:00 Test Item Value Reference Range Comments GLUCOSE RANDOM (BEAKER) (test kfko=922) 141 mg/dL 70-110 SODIUM NA-STAT [id number] 21:37:00 Test Item Value Reference Range Comments SODIUM (BEAKER) (test bhwl=713) 126 meq/L 135-148 HGB/HCT (H&H) - STAT [id number] 21:37:00 Test Item Value Reference Range Comments HEMOGLOBIN (BEAKER) (test kwjz=646) 9.6 g/dL 13.0-16.8 HEMATOCRIT (BEAKER) (test qqtt=960) 28.0 % 40.0-50.0 POTASSIUM-STAT [id number] 21:33:00 Test Item Value Reference Range Comments POTASSIUM (BEAKER) (test eggc=189) 4.2 meq/L 3.6-5.5 OXYGEN SATURATION, [id number] 21:32:00 Test Item Value Reference Range Comments O2 SATURATION (MEASURED) (BEAKER) (test iqmb=0356) 47.8 % THROMBOELASTOGRAPH (TEG)2019-06-02 18:42:00 Test Item Value Reference Range Comments TEG ACTIVATED CLOTTING TIME (BEAKER) (test 4.1 minutes 4.0-7.0 vjer=3120) TEG FIBRINOGEN ACTIVITY (BEAKER) (test 78.4 degrees 61.0-73.0 ebvu=5397) TEG PLT. AGGREGATION (BEAKER) (test qpqn=9410) 78.2 MM 55.0-65.0 TEG FIBRINOLYSIS (BEAKER) (test vbla=3429) 0.0 % 0.0-5.0 TGH ACTIVATED CLOTTING TIME (BEAKER) (test 3.8 minutes 4.0-7.0 ikza=0705) TGH FIBRINOGEN ACTIVITY (BEAKER) (test 78.0 degrees 61.0-73.0 kfbk=8028) TGH PLT. AGGREGATION (BEAKER) (test esbm=9364) 76.2 MM 55.0-65.0 TGH FIBRINOLYSIS (BEAKER) (test zaam=9579) 0.2 % 0.0-5.0 [id number] 17:46:00 Test Item Value Reference Range Comments PARTIAL THROMBOPLASTIN TIME (BEAKER) (test 41.9 seconds 22.5-36.0 qjjm=401) BASIC METABOLIC [id number] 17:46:00 Test Item Value Reference Range Comments SODIUM (BEAKER) (test 130 meq/L 136-145 wtxa=973) POTASSIUM (BEAKER) (test 4.4 meq/L 3.5-5.1 mjyv=808) CHLORIDE (BEAKER) (test 95 meq/L 98-107 auja=709) CO2 (BEAKER) (test 25 meq/L 22-29 sstz=429) BLOOD UREA NITROGEN 68 mg/dL 7-21 (BEAKER) (test zloh=790) CREATININE (BEAKER) (test 3.70 mg/dL 0.57-1.25 zwxb=937) GLUCOSE RANDOM (BEAKER) 158 mg/dL 70-105 (test tmzr=464) CALCIUM (BEAKER) (test 9.6 mg/dL 8.4-10.2 nlho=841) EGFR (BEAKER) (test 16 mL/min/1.73 sq m ESTIMATED GFR IS NOT rnli=5547) ACCURATE CREATININE CLEARANCE IN PREDICTING GLOMERULAR FILTRATION RATE. ESTIMATED GFR IS NOT APPLICABLE FOR DIALYSIS PATIENTS. Reverse Logistics Analyst ID - MEERA [id number] 17:25:00 Test Item Value Reference Range Comments MAGNESIUM (BEAKER) (test iaog=927) 1.8 mg/dL 1.6-2.6 Reverse Logistics Analyst ID - MEERA [id number] 16:37:00 Test Item Value Reference Range Comments ACTIVATED CLOTTING TIME 213 sec Reference Range: 74-137 (BEAKER) (test tsqi=841) seconds, Baseline/TESTED AT [address] [address] [id number] 16:37:00 Test Item Value Reference Range Comments ACTIVATED CLOTTING TIME 158 sec Reference Range: 74-137 (BEAKER) (test erzv=864) seconds, Baseline/TESTED AT [address] [address] THROMBOELASTOGRAPH (TEG)2019-06-02 14:24:00 Test Item Value Reference Range Comments TEG ACTIVATED CLOTTING TIME (BEAKER) 61.4 minutes 4.0-7.0 NO CLOT DETECTED (test otaj=9704) TEG FIBRINOGEN ACTIVITY (BEAKER) (test NO CLOT DETECTED itoo=9007) TEG PLT. AGGREGATION (BEAKER) (test NO CLOT DETECTED jmgc=8336) TEG FIBRINOLYSIS (BEAKER) (test NO CLOT DETECTED evvm=1618) TGH ACTIVATED CLOTTING TIME (BEAKER) 8.4 minutes 4.0-7.0 (test onwp=8330) TGH FIBRINOGEN ACTIVITY (BEAKER) (test 75.2 degrees 61.0-73.0 fcdc=7147) TGH PLT. AGGREGATION (BEAKER) (test 72.4 MM 55.0-65.0 irpm=8897) TGH FIBRINOLYSIS (BEAKER) (test 0.8 % 0.0-5.0 hbai=8943) TROPONIN [id number] 12:53:00 Test Item Value Reference Range Comments TROPONIN I (BEAKER) (test uklk=544) 1.18 ng/mL 0.00-0.03 Troponin I (TnI) levels [...] failure, acidosis, acute neurological disease, and persistent tachyarrhythmia.Reverse Logistics Analyst ID - MELLY MUNROE, CHEST, 1 VIEW, NON [id number] 12:45:00Reason for exam:->s/p intubationShould this be performed at the bedside?->YesFINAL REPORT CLINICAL HISTORY: s/p intubation TECHNIQUE: 1 view of the chest. COMPARISON: IMPRESSION: There is a new ETT terminating approximately 9 cm above the scarlet. There is a new nasogastric tube below the diaphragm. There is a new Buena -Allison catheter with the tip in the [...] Verified Date/ Time: 06/02/2019 12:45:16 Reading Location: [facility] Radiology Reading Room BASI METABOLIC [id number] 12:41:00 Test Item Value Reference Range Comments SODIUM (BEAKER) (test 127 meq/L 136-145 uscn=716) POTASSIUM (BEAKER) (test 4.1 meq/L 3.5-5.1 mzxx=076) CHLORIDE (BEAKER) (test 94 meq/L 98-107 gloz=737) CO2 (BEAKER) (test 25 meq/L 22-29 rzzb=374) BLOOD UREA NITROGEN 69 mg/dL 7-21 (BEAKER) (test ioba=511) CREATININE (BEAKER) (test 3.75 mg/dL 0.57-1.25 otss=027) GLUCOSE RANDOM (BEAKER) 153 mg/dL 70-105 (test mltk=160) CALCIUM (BEAKER) (test 9.4 mg/dL 8.4-10.2 bqya=492) EGFR (BEAKER) (test 16 mL/min/1.73 sq m ESTIMATED GFR IS NOT mkee=6741) ACCURATE CREATININE CLEARANCE IN PREDICTING GLOMERULAR FILTRATION RATE. ESTIMATED GFR IS NOT APPLICABLE FOR DIALYSIS PATIENTS. Reverse Logistics Analyst ID Sharmila PICKARD [id number] 12:41:00 Test Item Value Reference Range Comments PROTIME (BEAKER) (test eavo=565) 18.7 seconds 11.9-14.2 INR (BEAKER) (test dkjx=704) 1.6 <=5.9 PARTIAL THROMBOPLASTIN TIME (BEAKER) (test > seconds 22.5-36.0 cgyt=590) Effective 10/12/2018: PT Reference Range ChangeNew: 11.9-14.2 Previous: 11.7- 14.7RECOMMENDED COUMADIN/WARFARIN INR THERAPY RANGESSTANDARD DOSE: 2.0-3.0 Includes: PROPHYLAXIS for venous thrombosis, systemic embolization; TREATMENT for venous thrombosis and/or pulmonary embolus.HIGH RISK: Target INR is2.5-3.5 for patients wiht mechanical heart valves.[id number] 12:38:00 Test Item Value Reference Range Comments PHOSPHORUS (BEAKER) (test nahy=647) 6.1 mg/dL 2.3-4.7 Reverse Logistics Analyst ID MELLY [id number] 12:38:00 Test Item Value Reference Range Comments MAGNESIUM (BEAKER) (test hkbb=078) 2.0 mg/dL 1.6-2.6 Reverse Logistics Analyst ID MELLY FHEPATIC FUNCTION [id number] 12:38:00 Test Item Value Reference Range Comments TOTAL PROTEIN (BEAKER) (test ffwc=008) 5.7 gm/dL 6.0-8.3 ALBUMIN (BEAKER) (test vawf=8360) 2.8 g/dL 3.5-5.0 BILIRUBIN TOTAL (BEAKER) (test dgnd=084) 1.3 mg/dL 0.2-1.2 BILIRUBIN DIRECT (BEAKER) (test ddcf=349) 0.9 mg/dL 0.1-0.5 ALKALINE PHOSPHATASE (BEAKER) (test afdi=651) 117 U/L 40-150 AST (SGOT) (BEAKER) (test pzfe=183) 31 U/L 5-34 ALT (SGPT) (BEAKER) (test bngp=107) 58 U/L 6-55 Reverse Logistics Analyst ID - MELLY PATELBC (HEMOGRAM ONLY)2019-06-02 12:22:00 Test Item Value Reference Range Comments WHITE BLOOD CELL COUNT (BEAKER) (test ikvl=011) 9.1 K/ L 3.5-10.5 RED BLOOD CELL COUNT (BEAKER) (test xfva=254) 3.03 M/ L 4.63-6.08 HEMOGLOBIN (BEAKER) (test qhpp=670) 9.0 GM/DL 13.7-17.5 HEMATOCRIT (BEAKER) (test xhaf=099) 26.6 % 40.1-51.0 MEAN CORPUSCULAR VOLUME (BEAKER) (test rbvg=595) 87.8 fL 79.0-92.2 MEAN CORPUSCULAR HEMOGLOBIN (BEAKER) (test 29.7 pg 25.7-32.2 taco=556) MEAN CORPUSCULAR HEMOGLOBIN CONC (BEAKER) (test 33.8 GM/DL 32.3-36.5 aghm=317) RED CELL DISTRIBUTION WIDTH (BEAKER) (test 15.5 % 11.6-14.4 vdcb=436) PLATELET COUNT (BEAKER) (test chaq=290) 233 K/CU MM 150-450 MEAN PLATELET VOLUME (BEAKER) (test nutr=642) 10.6 fL 9.4-12.4 NUCLEATED RED BLOOD CELLS (BEAKER) (test 0 /100 WBC 0-0 vakx=199) LACTIC ACID, [id number] 12:21:00 Test Item Value Reference Range Comments LACTATE BLOOD ARTERIAL (2) (BEAKER) (test 1.0 mmol/L 0.5-2.2 iwqt=0669) Reverse Logistics Analyst ID - [id number] 12:19:00 Test Item Value Reference Range Comments FIBRINOGEN LEVEL (BEAKER) (test qbux=996) 485 mg/dl 225-434 OXYGEN SATURATION, [id number] 12:11:00 Test Item Value Reference Range Comments O2 SATURATION (MEASURED) (BEAKER) (test zipk=6059) 65.3 % CALCIUM, [id number] 12:09:00 Test Item Value Reference Range Comments CALCIUM IONIZED (BEAKER) (test udeo=584) 1.26 mmol/L 1.12-1.27 PH, BLOOD (BEAKER) (test eczb=9949) 7.42 BLOOD GAS, [id number] 12:07:00 Test Item Value Reference Range Comments PH ARTERIAL (BEAKER) (test lxrd=847) 7.42 7.35-7.45 PCO2 ARTERIAL (BEAKER) (test avtm=459) 38 mmHg 35-45 PO2 ARTERIAL (BEAKER) (test inzt=352) 132 mmHg 80-90 O2 SATURATION ARTERIAL (BEAKER) (test mgbb=376) 98.7 % 96.0-97.0 HCO3 ARTERIAL (BEAKER) (test djzr=358) 24 mmol/L 21-29 BASE EXCESS ARTERIAL (BEAKER) (test tlkl=956) -0.5 mmol/L -2.0-3.0 PATIENT TEMPERATURE (BEAKER) (test sowz=2632) 37.2 C FIO2 (BEAKER) (test perd=4111) 100.0 % SODIUM NA-STAT [id number] 12:07:00 Test Item Value Reference Range Comments SODIUM (BEAKER) (test nbuu=328) 125 meq/L 135-148 GLUCOSE-STAT [id number] 12:07:00 Test Item Value Reference Range Comments GLUCOSE RANDOM (BEAKER) (test kppr=449) 151 mg/dL 70-110 HGB/HCT (H&H) - STAT [id number] 12:07:00 Test Item Value Reference Range Comments HEMOGLOBIN (BEAKER) (test kelb=951) 9.9 g/dL 13.0-16.8 HEMATOCRIT (BEAKER) (test lukg=059) 29.0 % 40.0-50.0 POTASSIUM-STAT [id number] 12:04:00 Test Item Value Reference Range Comments POTASSIUM (BEAKER) (test wpup=378) 4.0 meq/L 3.6-5.5 OXYGEN SATURATION, [id number] 10:01:00 Test Item Value Reference Range Comments O2 SATURATION (MEASURED) (BEAKER) (test cexn=2733) 61.4 % HGB/HCT (H&H) - STAT [id number] 09:57:00 Test Item Value Reference Range Comments HEMOGLOBIN (BEAKER) (test gxpv=747) 8.6 g/dL 13.0-16.8 HEMATOCRIT (BEAKER) (test jnfd=070) 25.0 % 40.0-50.0 CALCIUM, [id number] 09:56:00 Test Item Value Reference Range Comments CALCIUM IONIZED (BEAKER) (test nacz=180) 1.08 mmol/L 1.12-1.27 PH, BLOOD (BEAKER) (test noia=3669) 7.37 BLOOD GAS, [id number] 09:56:00 Test Item Value Reference Range Comments PH ARTERIAL (BEAKER) (test eiyk=364) 7.39 7.35-7.45 PCO2 ARTERIAL (BEAKER) (test lyfn=013) 42 mmHg 35-45 PO2 ARTERIAL (BEAKER) (test khvs=172) 83 mmHg 80-90 O2 SATURATION ARTERIAL (BEAKER) (test fpgv=136) 96.6 % 96.0-97.0 HCO3 ARTERIAL (BEAKER) (test nwfz=803) 25 mmol/L 21-29 BASE EXCESS ARTERIAL (BEAKER) (test nxmr=807) -0.3 mmol/L -2.0-3.0 PATIENT TEMPERATURE (BEAKER) (test txda=9600) 35.7 C FIO2 (BEAKER) (test yblx=2585) 100.0 % POTASSIUM-STAT [id number] 09:56:00 Test Item Value Reference Range Comments POTASSIUM (BEAKER) (test lbdc=432) 3.9 meq/L 3.6-5.5 SODIUM NA-STAT [id number] 09:56:00 Test Item Value Reference Range Comments SODIUM (BEAKER) (test wdco=036) 125 meq/L 135-148 GLUCOSE-STAT [id number] 09:56:00 Test Item Value Reference Range Comments GLUCOSE RANDOM (BEAKER) (test yshh=772) 142 mg/dL 70-110 RAD, CHEST, 1 VIEW, NON [id number] 08:43:00Reason for exam:->s/p ACBShould this be performed [...] Randhawa Verified Date/Time: 06/02/2019 08:43:27 Reading Location: [facility] Radiology Reading Room Electronically signed by: SARATH RANDHAWA M.D. on 2019 08:43 [id number] 05:54:00 Test Item Value Reference Range Comments PROTIME (BEAKER) (test shwa=948) 16.4 seconds 11.9-14.2 INR (BEAKER) (test sglw=179) 1.4 <=5.9 PARTIAL THROMBOPLASTIN TIME (BEAKER) (test 37.6 seconds 22.5-36.0 rzhp=445) Effective 10/12/2018: PT Reference Range ChangeNew: 11.9-14.2 Previous: 11.7- 14.7RECOMMENDED COUMADIN/WARFARIN INR THERAPY RANGESSTANDARD DOSE: 2.0-3.0 Includes: PROPHYLAXIS for venous thrombosis, systemic embolization; TREATMENT for venous thrombosis and/or pulmonary embolus.HIGH RISK: Target INR is2.5-3.5 for patients wiht mechanical heart valves.PROTHROMBIN [id number] 05:53: 00 Test Item Value Reference Range Comments PROTIME (BEAKER) (test atdt=691) 16.4 seconds 11.9-14.2 INR (BEAKER) (test pzsj=206) 1.4 <=5.9 Effective 10/12/2018: PT Reference Range ChangeNew: 11.9-14.2 Previous: 11.7- 14.7RECOMMENDED COUMADIN/WARFARIN INR THERAPY RANGESSTANDARD DOSE: 2.0-3.0 Includes: PROPHYLAXIS for venous thrombosis, systemic embolization; TREATMENT for venous thrombosis and/or pulmonary embolus.HIGH RISK: Target INR is2.5-3.5 for patients wiht mechanical heart valves.BASIC METABOLIC [id number] 05:37: 00 Test Item Value Reference Range Comments SODIUM (BEAKER) (test 127 meq/L 136-145 yyql=843) POTASSIUM (BEAKER) (test 3.9 meq/L 3.5-5.1 tcsn=250) CHLORIDE (BEAKER) (test 93 meq/L 98-107 sfpu=379) CO2 (BEAKER) (test 24 meq/L 22-29 bckz=121) BLOOD UREA NITROGEN 64 mg/dL 7-21 (BEAKER) (test btvi=893) CREATININE (BEAKER) (test 3.65 mg/dL 0.57-1.25 ybvf=323) GLUCOSE RANDOM (BEAKER) 126 mg/dL 70-105 (test xdhh=144) CALCIUM (BEAKER) (test 7.9 mg/dL 8.4-10.2 ixxw=325) EGFR (BEAKER) (test 17 mL/min/1.73 sq m ESTIMATED GFR IS NOT egze=2687) ACCURATE CREATININE CLEARANCE IN PREDICTING GLOMERULAR FILTRATION RATE. ESTIMATED GFR IS NOT APPLICABLE FOR DIALYSIS PATIENTS. [employer] Log[employer] Analyst ID - [id number] 05:26:00 Test Item Value Reference Range Comments PHOSPHORUS (BEAKER) (test ymll=231) 4.6 mg/dL 2.3-4.7 Reverse Logistics Analyst ID - [id number] 05:26:00 Test Item Value Reference Range Comments MAGNESIUM (BEAKER) (test uzqe=158) 1.9 mg/dL 1.6-2.6 Reverse Logistics Analyst ID - DBOXYGEN SATURATION, [id number] 05:25:00 Test Item Value Reference Range Comments O2 SATURATION (MEASURED) (BEAKER) (test hxgj=6413) 54.6 % LACTIC ACID, [id number] 05:19:00 Test Item Value Reference Range Comments LACTATE BLOOD ARTERIAL (2) (BEAKER) (test 0.8 mmol/L 0.5-2.2 ryxq=8952) Reverse Logistics Analyst ID - FREDERICK WBLOOD GAS, [id number] 05:11:00 Test Item Value Reference Range Comments PH ARTERIAL (BEAKER) (test rxtn=256) 7.51 7.35-7.45 PCO2 ARTERIAL (BEAKER) (test fvks=742) 32 mmHg 35-45 PO2 ARTERIAL (BEAKER) (test ofjs=710) 98 mmHg 80-90 O2 SATURATION ARTERIAL (BEAKER) (test byey=654) 98.0 % 96.0-97.0 HCO3 ARTERIAL (BEAKER) (test dmah=010) 25 mmol/L 21-29 BASE EXCESS ARTERIAL (BEAKER) (test dykr=156) 1.7 mmol/L -2.0-3.0 PATIENT TEMPERATURE (BEAKER) (test hvqt=6405) 37.0 C FIO2 (BEAKER) (test vxir=9530) 100.0 % CBC (HEMOGRAM ONLY)2019-06-02 05:07:00 Test Item Value Reference Range Comments WHITE BLOOD CELL COUNT (BEAKER) (test fzvd=908) 7.0 K/ L 3.5-10.5 RED BLOOD CELL COUNT (BEAKER) (test oior=203) 2.71 M/ L 4.63-6.08 HEMOGLOBIN (BEAKER) (test gtwb=153) 7.8 GM/DL 13.7-17.5 HEMATOCRIT (BEAKER) (test bful=906) 23.5 % 40.1-51.0 MEAN CORPUSCULAR VOLUME (BEAKER) (test ranb=275) 86.7 fL 79.0-92.2 MEAN CORPUSCULAR HEMOGLOBIN (BEAKER) (test 28.8 pg 25.7-32.2 avjc=679) MEAN CORPUSCULAR HEMOGLOBIN CONC (BEAKER) (test 33.2 GM/DL 32.3-36.5 qvyp=463) RED CELL DISTRIBUTION WIDTH (BEAKER) (test 15.6 % 11.6-14.4 jbpq=169) PLATELET COUNT (BEAKER) (test lplk=651) 235 K/CU MM 150-450 MEAN PLATELET VOLUME (BEAKER) (test swmn=551) 10.5 fL 9.4-12.4 NUCLEATED RED BLOOD CELLS (BEAKER) (test 0 /100 WBC 0-0 qguq=860) HEMOGLOBIN AND [id number] 01:01:00 Test Item Value Reference Range Comments HEMOGLOBIN (BEAKER) (test gylp=051) 7.6 GM/DL 13.7-17.5 HEMATOCRIT (BEAKER) (test qdtr=495) 22.7 % 40.1-51.0 Reverse Logistics Analyst ID - [id number] METABOLIC [id number] 00:55:00 Test Item Value Reference Range Comments SODIUM (BEAKER) (test 125 meq/L 136-145 ugwp=428) POTASSIUM (BEAKER) (test 4.1 meq/L 3.5-5.1 gsuv=062) CHLORIDE (BEAKER) (test 93 meq/L 98-107 bvbk=948) CO2 (BEAKER) (test 23 meq/L 22-29 hqcv=175) BLOOD UREA NITROGEN 63 mg/dL 7-21 (BEAKER) (test wlro=321) CREATININE (BEAKER) (test 3.56 mg/dL 0.57-1.25 lnsp=551) GLUCOSE RANDOM (BEAKER) 137 mg/dL 70-105 (test cbks=593) CALCIUM (BEAKER) (test 7.7 mg/dL 8.4-10.2 wkmi=966) EGFR (BEAKER) (test 17 mL/min/1.73 sq m ESTIMATED GFR IS NOT ctcg=7506) ACCURATE CREATININE CLEARANCE IN PREDICTING GLOMERULAR FILTRATION RATE. ESTIMATED GFR IS NOT APPLICABLE FOR DIALYSIS PATIENTS. Reverse Log[employer] Analyst ID - DBOXYGEN SATURATION, [id number] 00:54:00 Test Item Value Reference Range Comments O2 SATURATION (MEASURED) (BEAKER) (test qces=6913) 45.4 % BLOOD GAS, [id number] 00:54:00 Test Item Value Reference Range Comments PH ARTERIAL (BEAKER) (test vaav=579) 7.49 7.35-7.45 PCO2 ARTERIAL (BEAKER) (test cqlv=850) 30 mmHg 35-45 PO2 ARTERIAL (BEAKER) (test bdex=542) 77 mmHg 80-90 O2 SATURATION ARTERIAL (BEAKER) (test ihhv=928) 96.5 % 96.0-97.0 HCO3 ARTERIAL (BEAKER) (test isjm=467) 23 mmol/L 21-29 BASE EXCESS ARTERIAL (BEAKER) (test dpob=962) -0.2 mmol/L -2.0-3.0 PATIENT TEMPERATURE (BEAKER) (test ycfk=6985) 37.0 C FIO2 (BEAKER) (test svxm=0557) 100.0 % [id number] 00:52:00 Test Item Value Reference Range Comments MAGNESIUM (BEAKER) (test igcq=858) 1.9 mg/dL 1.6-2.6 Reverse Logistics Analyst ID - DBBASIC METABOLIC [id number] 17:53:00 Test Item Value Reference Range Comments SODIUM (BEAKER) (test 125 meq/L 136-145 lkus=421) POTASSIUM (BEAKER) (test 4.5 meq/L 3.5-5.1 haza=703) CHLORIDE (BEAKER) (test 94 meq/L 98-107 uadb=645) CO2 (BEAKER) (test 23 meq/L 22-29 efei=370) BLOOD UREA NITROGEN 63 mg/dL 7-21 (BEAKER) (test kjww=292) CREATININE (BEAKER) (test 3.53 mg/dL 0.57-1.25 jfxc=802) GLUCOSE RANDOM (BEAKER) 119 mg/dL 70-105 (test miaa=427) CALCIUM (BEAKER) (test 8.0 mg/dL 8.4-10.2 qush=915) EGFR (BEAKER) (test 17 mL/min/1.73 sq m ESTIMATED GFR IS NOT bsxg=2087) ACCURATE CREATININE CLEARANCE IN PREDICTING GLOMERULAR FILTRATION RATE. ESTIMATED GFR IS NOT APPLICABLE FOR DIALYSIS PATIENTS. Reverse Logistics Analyst ID - BSOXYGEN SATURATION, [id number] 17:31:00 Test Item Value Reference Range Comments O2 SATURATION (MEASURED) (BEAKER) (test ncic=5616) 45.2 % [id number] 14:57:00 Test Item Value Reference Range Comments POTASSIUM (BEAKER) (test 4.6 meq/L 3.5-5.1 Specimen slightly hemolyzed zwht=259) Reverse Logistics Analyst ID - BSPRN - repeat potassium levels every 1 hour until glucose level is less than 450 mg/[id number] 14:53:00 Test Item Value Reference Range Comments MAGNESIUM (BEAKER) (test 2.0 mg/dL 1.6-2.6 Specimen slightly hemolyzed tqwq=488) Reverse Logistics Analyst ID - BSPRN - repeat potassium levels every 1 hour until glucose level is less than 450 mg/dLLACTIC ACID, [id number] 06:47:00 Test Item Value Reference Range Comments LACTATE BLOOD ARTERIAL (2) (BEAKER) (test 0.8 mmol/L 0.5-2.2 xajf=4680) Reverse Logistics Analyst ID - FREDERICK WBASIC METABOLIC [id number] 06:02:00 Test Item Value Reference Range Comments SODIUM (BEAKER) (test 123 meq/L 136-145 yltf=993) POTASSIUM (BEAKER) (test 4.1 meq/L 3.5-5.1 mzll=521) CHLORIDE (BEAKER) (test 93 meq/L 98-107 edlc=669) CO2 (BEAKER) (test 21 meq/L 22-29 gjac=326) BLOOD UREA NITROGEN 61 mg/dL 7-21 (BEAKER) (test swyj=360) CREATININE (BEAKER) (test 3.46 mg/dL 0.57-1.25 wmzr=302) GLUCOSE RANDOM (BEAKER) 145 mg/dL 70-105 (test aftg=681) CALCIUM (BEAKER) (test 7.4 mg/dL 8.4-10.2 bqge=000) EGFR (BEAKER) (test 18 mL/min/1.73 sq m ESTIMATED GFR IS NOT eynr=6302) ACCURATE CREATININE CLEARANCE IN PREDICTING GLOMERULAR FILTRATION RATE. ESTIMATED GFR IS NOT APPLICABLE FOR DIALYSIS PATIENTS. Reverse Logistics Analyst ID - RASHEEDATOO [id number] 05:56:00 Test Item Value Reference Range Comments PHOSPHORUS (BEAKER) (test lltj=721) 3.4 mg/dL 2.3-4.7 Reverse Logistics Analyst ID - RASHEEDATOO [id number] 05:56:00 Test Item Value Reference Range Comments MAGNESIUM (BEAKER) (test brji=077) 2.1 mg/dL 1.6-2.6 Reverse Logistics Analyst ID - RASHEEDATOO LRAD, CHEST, 1 VIEW, NON [id number] 05:25:00Reason for exam:->s/p ACBShould this be performed [...] Comments WHITE BLOOD CELL COUNT (BEAKER) (test gnvw=349) 8.4 K/ L 3.5-10.5 RED BLOOD CELL COUNT (BEAKER) (test manj=424) 2.66 M/ L 4.63-6.08 HEMOGLOBIN (BEAKER) (test mddk=536) 7.9 GM/DL 13.7-17.5 HEMATOCRIT (BEAKER) (test ydup=963) 23.1 % 40.1-51.0 MEAN CORPUSCULAR VOLUME (BEAKER) (test tyrk=125) 86.8 fL 79.0-92.2 MEAN CORPUSCULAR HEMOGLOBIN (BEAKER) (test 29.7 pg 25.7-32.2 tvsz=380) MEAN CORPUSCULAR HEMOGLOBIN CONC (BEAKER) (test 34.2 GM/DL 32.3-36.5 glsw=064) RED CELL DISTRIBUTION WIDTH (BEAKER) (test 15.6 % 11.6-14.4 qoea=166) PLATELET COUNT (BEAKER) (test xyib=709) 178 K/CU MM 150-450 MEAN PLATELET VOLUME (BEAKER) (test wlcy=336) 11.0 fL 9.4-12.4 NUCLEATED RED BLOOD CELLS (BEAKER) (test 0 /100 WBC 0-0 lhut=224) OXYGEN SATURATION, [id number] 04:54:00 Test Item Value Reference Range Comments O2 SATURATION (MEASURED) (BEAKER) (test qqkv=9545) 60.2 % BLOOD GAS, [id number] 04:29:00 Test Item Value Reference Range Comments PH ARTERIAL (BEAKER) (test ijxz=467) 7.51 7.35-7.45 PCO2 ARTERIAL (BEAKER) (test mnyw=941) 29 mmHg 35-45 PO2 ARTERIAL (BEAKER) (test xgiy=298) 109 mmHg 80-90 O2 SATURATION ARTERIAL (BEAKER) (test tjza=960) 98.4 % 96.0-97.0 HCO3 ARTERIAL (BEAKER) (test eazu=313) 23 mmol/L 21-29 BASE EXCESS ARTERIAL (BEAKER) (test itng=859) 0.3 mmol/L -2.0-3.0 PATIENT TEMPERATURE (BEAKER) (test adwz=5201) 37.0 C FIO2 (BEAKER) (test lzyq=9894) 100.0 % BASIC METABOLIC [id number] 20:37:00 Test Item Value Reference Range Comments SODIUM (BEAKER) (test 124 meq/L 136-145 qbzx=075) POTASSIUM (BEAKER) (test 4.5 meq/L 3.5-5.1 Specimen slightly rgct=430) hemolyzed CHLORIDE (BEAKER) (test 93 meq/L 98-107 psae=171) CO2 (BEAKER) (test 22 meq/L 22-29 zvca=400) BLOOD UREA NITROGEN 61 mg/dL 7-21 (BEAKER) (test aoex=924) CREATININE (BEAKER) (test 3.43 mg/dL 0.57-1.25 Specimen slightly nvzt=928) hemolyzed GLUCOSE RANDOM (BEAKER) 118 mg/dL 70-105 (test ooux=983) CALCIUM (BEAKER) (test 7.4 mg/dL 8.4-10.2 jpbc=329) EGFR (BEAKER) (test 18 mL/min/1.73 sq m ESTIMATED GFR IS NOT ejru=0108) ACCURATE CREATININE CLEARANCE IN PREDICTING GLOMERULAR FILTRATION RATE. ESTIMATED GFR IS NOT APPLICABLE FOR DIALYSIS PATIENTS. Reverse Logistics Analyst ID - MARY BLACTIC ACID, [id number] 20:33:00 Test Item Value Reference Range Comments LACTATE BLOOD ARTERIAL (2) (BEAKER) (test 0.8 mmol/L 0.5-2.2 tvht=9668) Reverse Logistics Analyst ID - MARY BOXYGEN SATURATION, [id number] 19:55:00 Test Item Value Reference Range Comments O2 SATURATION (MEASURED) (BEAKER) (test etjg=6596) 53.4 % BLOOD GAS, [id number] 19:54:00 Test Item Value Reference Range Comments PH ARTERIAL (BEAKER) (test upxm=844) 7.54 7.35-7.45 PCO2 ARTERIAL (BEAKER) (test gjie=951) 28 mmHg 35-45 PO2 ARTERIAL (BEAKER) (test wzlo=930) 84 mmHg 80-90 O2 SATURATION ARTERIAL (BEAKER) (test bqqr=771) 97.4 % 96.0-97.0 HCO3 ARTERIAL (BEAKER) (test fcwk=856) 24 mmol/L 21-29 BASE EXCESS ARTERIAL (BEAKER) (test jeqs=446) 1.5 mmol/L -2.0-3.0 PATIENT TEMPERATURE (BEAKER) (test oayy=6481) 37.0 C FIO2 (BEAKER) (test trxg=8653) 100.0 % RAD, CHEST, 1 VIEW, NON [id number] 19:10:00Reason for exam:->piccShould this be performed at [...] Verified Date/Time: 05/31/2019 19:10: 18 Reading Location: [address] Consult Reading Room RAD, CHEST, 1 VIEW, NON [id number] 08:55:00Reason for exam:->s/p ACBShould this be performed [...] MDReport Verified Date/Time: 05/31/2019 08:55:28 Reading Location: [facility] Radiology Reading Room [id number] 06:13:00 Test Item Value Reference Range Comments PHOSPHORUS (BEAKER) (test osza=900) 3.2 mg/dL 2.3-4.7 Reverse Logistics Analyst ID - [id number] 06:13:00 Test Item Value Reference Range Comments MAGNESIUM (BEAKER) (test smai=180) 2.1 mg/dL 1.6-2.6 Reverse Logistics Analyst ID - LABASIC METABOLIC [id number] 06:13:00 Test Item Value Reference Range Comments SODIUM (BEAKER) (test 127 meq/L 136-145 wxnv=088) POTASSIUM (BEAKER) (test 4.2 meq/L 3.5-5.1 meev=703) CHLORIDE (BEAKER) (test 95 meq/L 98-107 egbf=200) CO2 (BEAKER) (test 25 meq/L 22-29 jhdd=312) BLOOD UREA NITROGEN 55 mg/dL 7-21 (BEAKER) (test jyth=888) CREATININE (BEAKER) (test 3.37 mg/dL 0.57-1.25 skzm=024) GLUCOSE RANDOM (BEAKER) 135 mg/dL 70-105 (test zism=100) CALCIUM (BEAKER) (test 7.6 mg/dL 8.4-10.2 padu=455) EGFR (BEAKER) (test 18 mL/min/1.73 sq m ESTIMATED GFR IS NOT hhqk=2861) ACCURATE CREATININE CLEARANCE IN PREDICTING GLOMERULAR FILTRATION RATE. ESTIMATED GFR IS NOT APPLICABLE FOR DIALYSIS PATIENTS. Reverse Logistics Analyst ID - LACBC (HEMOGRAM ONLY)2019-05-31 05:23:00 Test Item Value Reference Range Comments WHITE BLOOD CELL COUNT (BEAKER) (test iukp=291) 8.0 K/ L 3.5-10.5 RED BLOOD CELL COUNT (BEAKER) (test eche=769) 2.95 M/ L 4.63-6.08 HEMOGLOBIN (BEAKER) (test hsji=337) 8.5 GM/DL 13.7-17.5 HEMATOCRIT (BEAKER) (test hnuk=900) 26.4 % 40.1-51.0 MEAN CORPUSCULAR VOLUME (BEAKER) (test muqa=463) 89.5 fL 79.0-92.2 MEAN CORPUSCULAR HEMOGLOBIN (BEAKER) (test 28.8 pg 25.7-32.2 ivpt=501) MEAN CORPUSCULAR HEMOGLOBIN CONC (BEAKER) (test 32.2 GM/DL 32.3-36.5 tckt=195) RED CELL DISTRIBUTION WIDTH (BEAKER) (test 15.8 % 11.6-14.4 ohet=283) PLATELET COUNT (BEAKER) (test zait=109) 165 K/CU MM 150-450 MEAN PLATELET VOLUME (BEAKER) (test bnya=245) 10.7 fL 9.4-12.4 NUCLEATED RED BLOOD CELLS (BEAKER) (test 0 /100 WBC 0-0 qaiw=186) RAD, CHEST, 1 VIEW, NON [id number] 08:02:00Reason for exam:->s/p ACBShould this be performed at the bedside?->YesFINAL REPORT CLINICAL HISTORY: s/p ACB TECHNIQUE: 1 view of the chest. COMPARISON: IMPRESSION: The Buena-Allison catheter has been removed. The right jugular sheath remains. There are diffusely increased bilateral airspace opacities and pleural effusions. Cardiomegaly is again seen unchanged post sternotomy. Signed : Blanquita Posada MDReport Verified Date/Time: 05/30/2019 08:02:43 Reading Location: [facility] Radiology Reading Room B-TYPE NATRIURETIC FACTOR (BNP)05-30 06:24:00 Test Item Value Reference Range Comments B-TYPE NATRIURETIC PEPTIDE (BEAKER) (test 2342 pg/mL 0-100 hgzp=269) Reverse Logistics Analyst ID - LABASIC METABOLIC [id number] 05:48:00 Test Item Value Reference Range Comments SODIUM (BEAKER) (test 130 meq/L 136-145 ziqa=600) POTASSIUM (BEAKER) (test 3.8 meq/L 3.5-5.1 pynu=920) CHLORIDE (BEAKER) (test 97 meq/L 98-107 bsqc=053) CO2 (BEAKER) (test 25 meq/L 22-29 ocqj=055) BLOOD UREA NITROGEN 51 mg/dL 7-21 (BEAKER) (test cjwd=148) CREATININE (BEAKER) (test 2.95 mg/dL 0.57-1.25 qcre=390) GLUCOSE RANDOM (BEAKER) 91 mg/dL 70-105 (test xmaq=414) CALCIUM (BEAKER) (test 7.6 mg/dL 8.4-10.2 ioyu=919) EGFR (BEAKER) (test 21 mL/min/1.73 sq m ESTIMATED GFR IS NOT ktms=1794) ACCURATE CREATININE CLEARANCE IN PREDICTING GLOMERULAR FILTRATION RATE. ESTIMATED GFR IS NOT APPLICABLE FOR DIALYSIS PATIENTS. Reverse Logistics Analyst ID - MARISABEL MURIC [id number] 05:43:00 Test Item Value Reference Range Comments URIC ACID (BEAKER) (test ysxi=445) 10.7 mg/dL 2.6-7.2 Reverse Logistics Analyst ID - MARISABEL [id number] 05:43:00 Test Item Value Reference Range Comments MAGNESIUM (BEAKER) (test dscd=640) 2.1 mg/dL 1.6-2.6 Reverse Logistics Analyst ID - MARISABEL [id number] 05:43:00 Test Item Value Reference Range Comments PHOSPHORUS (BEAKER) (test xejc=022) 2.8 mg/dL 2.3-4.7 Reverse Logistics Analyst ID - MARISABEL MCBC W/PLT COUNT & AUTO [id number] 05:30:00 Test Item Value Reference Range Comments WHITE BLOOD CELL COUNT (BEAKER) (test eqxx=793) 6.8 K/ L 3.5-10.5 RED BLOOD CELL COUNT (BEAKER) (test bgvg=937) 3.16 M/ L 4.63-6.08 HEMOGLOBIN (BEAKER) (test ffur=911) 9.1 GM/DL 13.7-17.5 HEMATOCRIT (BEAKER) (test newa=840) 27.8 % 40.1-51.0 MEAN CORPUSCULAR VOLUME (BEAKER) (test sryr=285) 88.0 fL 79.0-92.2 MEAN CORPUSCULAR HEMOGLOBIN (BEAKER) (test 28.8 pg 25.7-32.2 skeb=686) MEAN CORPUSCULAR HEMOGLOBIN CONC (BEAKER) (test 32.7 GM/DL 32.3-36.5 fnrx=443) RED CELL DISTRIBUTION WIDTH (BEAKER) (test 15.5 % 11.6-14.4 usrn=066) PLATELET COUNT (BEAKER) (test ukaq=291) 146 K/CU MM 150-450 MEAN PLATELET VOLUME (BEAKER) (test piia=685) 10.5 fL 9.4-12.4 NUCLEATED RED BLOOD CELLS (BEAKER) (test 0 /100 WBC 0-0 bdyo=952) NEUTROPHILS RELATIVE PERCENT (BEAKER) (test 73 % ucoq=855) LYMPHOCYTES RELATIVE PERCENT (BEAKER) (test 11 % qymp=464) MONOCYTES RELATIVE PERCENT (BEAKER) (test 13 % ghto=284) EOSINOPHILS RELATIVE PERCENT (BEAKER) (test 2 % quia=516) BASOPHILS RELATIVE PERCENT (BEAKER) (test 0 % gpzd=683) NEUTROPHILS ABSOLUTE COUNT (BEAKER) (test 4.95 K/ L 1.78-5.38 ehkq=823) LYMPHOCYTES ABSOLUTE COUNT (BEAKER) (test 0.76 K/ L 1.32-3.57 xfai=103) MONOCYTES ABSOLUTE COUNT (BEAKER) (test 0.86 K/ L 0.30-0.82 iaun=353) EOSINOPHILS ABSOLUTE COUNT (BEAKER) (test 0.13 K/ L 0.04-0.54 xtvy=034) BASOPHILS ABSOLUTE COUNT (BEAKER) (test 0.02 K/ L 0.01-0.08 qder=137) IMMATURE GRANULOCYTES-RELATIVE PERCENT (BEAKER) 0 % 0-1 (test jjrg=8732) CBC (HEMOGRAM ONLY)2019-05-30 05:30:00 Test Item Value Reference Range Comments WHITE BLOOD CELL COUNT (BEAKER) (test ynsg=271) 6.8 K/ L 3.5-10.5 RED BLOOD CELL COUNT (BEAKER) (test fluy=758) 3.16 M/ L 4.63-6.08 HEMOGLOBIN (BEAKER) (test yldr=490) 9.1 GM/DL 13.7-17.5 HEMATOCRIT (BEAKER) (test mitd=763) 27.8 % 40.1-51.0 MEAN CORPUSCULAR VOLUME (BEAKER) (test kofm=598) 88.0 fL 79.0-92.2 MEAN CORPUSCULAR HEMOGLOBIN (BEAKER) (test 28.8 pg 25.7-32.2 jxop=468) MEAN CORPUSCULAR HEMOGLOBIN CONC (BEAKER) (test 32.7 GM/DL 32.3-36.5 sdyu=871) RED CELL DISTRIBUTION WIDTH (BEAKER) (test 15.5 % 11.6-14.4 bgus=743) PLATELET COUNT (BEAKER) (test qtaa=907) 146 K/CU MM 150-450 MEAN PLATELET VOLUME (BEAKER) (test mmff=680) 10.5 fL 9.4-12.4 NUCLEATED RED BLOOD CELLS (BEAKER) (test 0 /100 WBC 0-0 urgz=631) CBC W/PLT COUNT & AUTO [id number] 21:42:00 Test Item Value Reference Range Comments WHITE BLOOD CELL COUNT (BEAKER) (test wirz=189) 6.3 K/ L 3.5-10.5 RED BLOOD CELL COUNT (BEAKER) (test yiru=749) 2.84 M/ L 4.63-6.08 HEMOGLOBIN (BEAKER) (test bbft=070) 8.1 GM/DL 13.7-17.5 HEMATOCRIT (BEAKER) (test hbjm=589) 24.8 % 40.1-51.0 MEAN CORPUSCULAR VOLUME (BEAKER) (test fqcu=031) 87.3 fL 79.0-92.2 MEAN CORPUSCULAR HEMOGLOBIN (BEAKER) (test 28.5 pg 25.7-32.2 unlx=334) MEAN CORPUSCULAR HEMOGLOBIN CONC (BEAKER) (test 32.7 GM/DL 32.3-36.5 ucww=630) RED CELL DISTRIBUTION WIDTH (BEAKER) (test 15.5 % 11.6-14.4 lbfg=607) PLATELET COUNT (BEAKER) (test hhai=181) 129 K/CU MM 150-450 MEAN PLATELET VOLUME (BEAKER) (test snbb=505) 10.4 fL 9.4-12.4 NUCLEATED RED BLOOD CELLS (BEAKER) (test 0 /100 WBC 0-0 wjjm=965) NEUTROPHILS RELATIVE PERCENT (BEAKER) (test 76 % vgdu=168) LYMPHOCYTES RELATIVE PERCENT (BEAKER) (test 9 % vbos=979) MONOCYTES RELATIVE PERCENT (BEAKER) (test 13 % ynoy=703) EOSINOPHILS RELATIVE PERCENT (BEAKER) (test 2 % tqhm=689) BASOPHILS RELATIVE PERCENT (BEAKER) (test 0 % gxew=806) NEUTROPHILS ABSOLUTE COUNT (BEAKER) (test 4.80 K/ L 1.78-5.38 batu=441) LYMPHOCYTES ABSOLUTE COUNT (BEAKER) (test 0.55 K/ L 1.32-3.57 qguc=226) MONOCYTES ABSOLUTE COUNT (BEAKER) (test 0.79 K/ L 0.30-0.82 ocfd=141) EOSINOPHILS ABSOLUTE COUNT (BEAKER) (test 0.10 K/ L 0.04-0.54 tjtj=270) BASOPHILS ABSOLUTE COUNT (BEAKER) (test 0.01 K/ L 0.01-0.08 dsua=535) IMMATURE GRANULOCYTES-RELATIVE PERCENT (BEAKER) 1 % 0-1 (test cdtn=8018) [id number] 13:50:00 Test Item Value Reference Range Comments POTASSIUM (BEAKER) (test uolq=944) 3.7 meq/L 3.5-5.1 Reverse Logistics Analyst ID - MARISABEL MCBC W/PLT COUNT & AUTO [id number] 12:30:00 Test Item Value Reference Range Comments WHITE BLOOD CELL COUNT (BEAKER) (test nrbu=389) 7.8 K/ L 3.5-10.5 RED BLOOD CELL COUNT (BEAKER) (test vxnx=479) 3.32 M/ L 4.63-6.08 HEMOGLOBIN (BEAKER) (test wfat=299) 9.6 GM/DL 13.7-17.5 HEMATOCRIT (BEAKER) (test vtnm=017) 28.6 % 40.1-51.0 MEAN CORPUSCULAR VOLUME (BEAKER) (test pudr=590) 86.1 fL 79.0-92.2 MEAN CORPUSCULAR HEMOGLOBIN (BEAKER) (test 28.9 pg 25.7-32.2 mcyf=243) MEAN CORPUSCULAR HEMOGLOBIN CONC (BEAKER) (test 33.6 GM/DL 32.3-36.5 joen=802) RED CELL DISTRIBUTION WIDTH (BEAKER) (test 15.7 % 11.6-14.4 flfe=474) PLATELET COUNT (BEAKER) (test mgbj=752) 148 K/CU MM 150-450 MEAN PLATELET VOLUME (BEAKER) (test gczo=611) 10.6 fL 9.4-12.4 NUCLEATED RED BLOOD CELLS (BEAKER) (test 0 /100 WBC 0-0 luji=256) NEUTROPHILS RELATIVE PERCENT (BEAKER) (test 83 % rbjj=805) LYMPHOCYTES RELATIVE PERCENT (BEAKER) (test 7 % ehkw=560) MONOCYTES RELATIVE PERCENT (BEAKER) (test 9 % rutg=759) EOSINOPHILS RELATIVE PERCENT (BEAKER) (test 0 % hyaj=194) BASOPHILS RELATIVE PERCENT (BEAKER) (test 0 % hkpc=415) NEUTROPHILS ABSOLUTE COUNT (BEAKER) (test 6.44 K/ L 1.78-5.38 itgc=037) LYMPHOCYTES ABSOLUTE COUNT (BEAKER) (test 0.57 K/ L 1.32-3.57 maso=845) MONOCYTES ABSOLUTE COUNT (BEAKER) (test 0.70 K/ L 0.30-0.82 xxgt=223) EOSINOPHILS ABSOLUTE COUNT (BEAKER) (test 0.03 K/ L 0.04-0.54 jgmg=298) BASOPHILS ABSOLUTE COUNT (BEAKER) (test 0.00 K/ L 0.01-0.08 lmlh=496) IMMATURE GRANULOCYTES-RELATIVE PERCENT (BEAKER) 1 % 0-1 (test wmfu=7391) POCT-GLUCOSE [id number] 12:12:00 Test Item Value Reference Range Comments POC-GLUCOSE METER (BEAKER) 128 mg/dL 70-110 : TESTED AT [facility] [address] [place] [address] (test zoro=2561) [facility], [address]: Reverse Logistics Analyst/Computer Technology Teacher EI=[id number] for MERLYSharmilaAVIS RIVKA BASIC METABOLIC [id number] 07:40:00 Test Item Value Reference Range Comments SODIUM (BEAKER) (test 132 meq/L 136-145 yibk=636) POTASSIUM (BEAKER) (test 3.8 meq/L 3.5-5.1 ehia=336) CHLORIDE (BEAKER) (test 96 meq/L 98-107 drxu=921) CO2 (BEAKER) (test 24 meq/L 22-29 nddm=763) BLOOD UREA NITROGEN 55 mg/dL 7-21 (BEAKER) (test lapy=673) CREATININE (BEAKER) (test 3.38 mg/dL 0.57-1.25 nmpt=764) GLUCOSE RANDOM (BEAKER) 106 mg/dL 70-105 (test bdju=635) CALCIUM (BEAKER) (test 7.9 mg/dL 8.4-10.2 ykem=650) EGFR (BEAKER) (test 18 mL/min/1.73 sq m ESTIMATED GFR IS NOT qvfo=1502) ACCURATE CREATININE CLEARANCE IN PREDICTING GLOMERULAR FILTRATION RATE. ESTIMATED GFR IS NOT APPLICABLE FOR DIALYSIS PATIENTS. Reverse Logistics Analyst ID - [id number] 07:22:00 Test Item Value Reference Range Comments PHOSPHORUS (BEAKER) (test hibx=708) 4.4 mg/dL 2.3-4.7 Reverse Logistics Analyst ID - [id number] 07:22:00 Test Item Value Reference Range Comments MAGNESIUM (BEAKER) (test nnns=361) 2.2 mg/dL 1.6-2.6 Reverse Logistics Analyst ID - SUE, CHEST, 1 VIEW, NON [id number] 05:01:00Reason for exam :->s/p ACBShould this be performed at the bedside?->YesFINAL REPORT Chest one view. Clinical history: s/p ACB Comparison: Chest radiograph 05/28/2019, 5:59 PM. Technique: A single frontal view of the chest was obtained. Findings:There is a right IJ Buena-Allison catheter with tip in the right pulmonary [...] THEODORE MCCORMICK MD on 05:01 AMOXYGEN SATURATION, [id number] 04:35:00 Test Item Value Reference Range Comments O2 SATURATION (MEASURED) (BEAKER) (test xsse=1365) 55.0 % SODIUM NA-STAT [id number] 04:23:00 Test Item Value Reference Range Comments SODIUM (BEAKER) (test gzke=016) 128 meq/L 135-148 HGB/HCT (H&H) - STAT [id number] 04:23:00 Test Item Value Reference Range Comments HEMOGLOBIN (BEAKER) (test ajuf=684) 10.4 g/dL 13.0-16.8 HEMATOCRIT (BEAKER) (test zwgh=588) 31.0 % 40.0-50.0 CALCIUM, [id number] 04:23:00 Test Item Value Reference Range Comments CALCIUM IONIZED (BEAKER) (test epih=474) 1.05 mmol/L 1.12-1.27 PH, BLOOD (BEAKER) (test bojt=9544) 7.50 BLOOD GAS, [id number] 04:22:00 Test Item Value Reference Range Comments PH ARTERIAL (BEAKER) (test lwvt=608) 7.50 7.35-7.45 PCO2 ARTERIAL (BEAKER) (test hxqa=844) 34 mmHg 35-45 PO2 ARTERIAL (BEAKER) (test scgz=306) 78 mmHg 80-90 O2 SATURATION ARTERIAL (BEAKER) (test yefw=451) 96.3 % 96.0-97.0 HCO3 ARTERIAL (BEAKER) (test sssd=775) 26 mmol/L 21-29 BASE EXCESS ARTERIAL (BEAKER) (test qfuf=798) 2.6 mmol/L -2.0-3.0 PATIENT TEMPERATURE (BEAKER) (test yuyl=5051) 37.4 C FIO2 (BEAKER) (test megx=1812) 100.0 % GLUCOSE-STAT [id number] 03:56:00 Test Item Value Reference Range Comments GLUCOSE RANDOM (BEAKER) (test taeu=705) 109 mg/dL 70-110 POTASSIUM-STAT [id number] 03:56:00 Test Item Value Reference Range Comments POTASSIUM (BEAKER) (test zcfj=983) 3.8 meq/L 3.6-5.5 CBC (HEMOGRAM ONLY)2019-05-29 03:46:00 Test Item Value Reference Range Comments WHITE BLOOD CELL COUNT (BEAKER) (test uklp=203) 8.7 K/ L 3.5-10.5 RED BLOOD CELL COUNT (BEAKER) (test feeb=573) 3.32 M/ L 4.63-6.08 HEMOGLOBIN (BEAKER) (test efjf=443) 9.8 GM/DL 13.7-17.5 HEMATOCRIT (BEAKER) (test eytb=980) 28.1 % 40.1-51.0 MEAN CORPUSCULAR VOLUME (BEAKER) (test jsxy=663) 84.6 fL 79.0-92.2 MEAN CORPUSCULAR HEMOGLOBIN (BEAKER) (test 29.5 pg 25.7-32.2 uvlh=317) MEAN CORPUSCULAR HEMOGLOBIN CONC (BEAKER) (test 34.9 GM/DL 32.3-36.5 fpag=585) RED CELL DISTRIBUTION WIDTH (BEAKER) (test 15.7 % 11.6-14.4 ehzt=769) PLATELET COUNT (BEAKER) (test wxho=458) 141 K/CU MM 150-450 MEAN PLATELET VOLUME (BEAKER) (test hiao=313) 10.5 fL 9.4-12.4 NUCLEATED RED BLOOD CELLS (BEAKER) (test 0 /100 WBC 0-0 uisq=659) BASIC METABOLIC [id number] 22:22:00 Test Item Value Reference Range Comments SODIUM (BEAKER) (test 126 meq/L 136-145 baqp=442) POTASSIUM (BEAKER) (test 3.3 meq/L 3.5-5.1 cmvg=855) CHLORIDE (BEAKER) (test 94 meq/L 98-107 ncoe=548) CO2 (BEAKER) (test 22 meq/L 22-29 tokn=080) BLOOD UREA NITROGEN 55 mg/dL 7-21 (BEAKER) (test lilj=413) CREATININE (BEAKER) (test 3.52 mg/dL 0.57-1.25 qykg=537) GLUCOSE RANDOM (BEAKER) 129 mg/dL 70-105 (test iuqz=234) CALCIUM (BEAKER) (test 7.8 mg/dL 8.4-10.2 lzgc=162) EGFR (BEAKER) (test 17 mL/min/1.73 sq m ESTIMATED GFR IS NOT fqvw=1752) ACCURATE CREATININE CLEARANCE IN PREDICTING GLOMERULAR FILTRATION RATE. ESTIMATED GFR IS NOT APPLICABLE FOR DIALYSIS PATIENTS. Reverse Logistics Analyst ID - KENNRAD, CHEST, 1 VIEW, NON [id number] 18:28:00Reason for exam :->pulm edemaFINAL REPORT RAD, CHEST, 1 VIEW, NON DEPT INDICATION: pulm edema COMPARISON: Prior day's exam FINDINGS: Portable frontal view of the chest. IMPRESSION: Support Lines: [place] tip overlies the pulmonary outflow tract. Sternotomy wires. Lungs and pleura: Unchanged airspace and pleural opacities. No pneumothorax.Heart and mediastinum: Stable contours. Stable surgical changes.Additional findings: None. Signed: Marcella Burdick MDReport Verified Date/Time: 05/28/2019 18:28:02 Reading Location: [address] Neuro Reading Room LACTIC ACID, [id number] 17:17:00 Test Item Value Reference Range Comments LACTATE BLOOD ARTERIAL (2) 1.1 mmol/L 0.5-2.2 Specimen slightly hemolyzed (BEAKER) (test pnst=0950) Reverse Logistics Analyst ID - MELLY FPOCT-GLUCOSE [id number] 16:43:00 Test Item Value Reference Range Comments POC-GLUCOSE METER (BEAKER) 118 mg/dL 70-110 : TESTED AT [address] (test kcte=3753) [facility], [id number]: Reverse Logistics Analyst/Computer Technology Teacher SF=[id number] for MAGDI HURTADO CBC W/PLT COUNT & AUTO [id number] 16:37:00 Test Item Value Reference Range Comments WHITE BLOOD CELL COUNT (BEAKER) (test zbfu=165) 10.6 K/ L 3.5-10.5 RED BLOOD CELL COUNT (BEAKER) (test xwou=599) 3.14 M/ L 4.63-6.08 HEMOGLOBIN (BEAKER) (test ttca=491) 9.3 GM/DL 13.7-17.5 HEMATOCRIT (BEAKER) (test rgro=298) 27.0 % 40.1-51.0 MEAN CORPUSCULAR VOLUME (BEAKER) (test rfzv=616) 86.0 fL 79.0-92.2 MEAN CORPUSCULAR HEMOGLOBIN (BEAKER) (test 29.6 pg 25.7-32.2 ikhb=207) MEAN CORPUSCULAR HEMOGLOBIN CONC (BEAKER) (test 34.4 GM/DL 32.3-36.5 gfrn=691) RED CELL DISTRIBUTION WIDTH (BEAKER) (test 15.7 % 11.6-14.4 psha=101) PLATELET COUNT (BEAKER) (test gpwk=913) 165 K/CU MM 150-450 MEAN PLATELET VOLUME (BEAKER) (test wadv=166) 10.8 fL 9.4-12.4 NUCLEATED RED BLOOD CELLS (BEAKER) (test 0 /100 WBC 0-0 mzkv=912) NEUTROPHILS RELATIVE PERCENT (BEAKER) (test 81 % karg=884) LYMPHOCYTES RELATIVE PERCENT (BEAKER) (test 9 % fzuz=453) MONOCYTES RELATIVE PERCENT (BEAKER) (test 10 % grqh=217) EOSINOPHILS RELATIVE PERCENT (BEAKER) (test 0 % cfaz=823) BASOPHILS RELATIVE PERCENT (BEAKER) (test 0 % haml=258) NEUTROPHILS ABSOLUTE COUNT (BEAKER) (test 8.54 K/ L 1.78-5.38 ckxf=695) LYMPHOCYTES ABSOLUTE COUNT (BEAKER) (test 0.90 K/ L 1.32-3.57 bhuc=011) MONOCYTES ABSOLUTE COUNT (BEAKER) (test 1.04 K/ L 0.30-0.82 okkb=525) EOSINOPHILS ABSOLUTE COUNT (BEAKER) (test 0.01 K/ L 0.04-0.54 rmqx=734) BASOPHILS ABSOLUTE COUNT (BEAKER) (test 0.01 K/ L 0.01-0.08 xolv=643) IMMATURE GRANULOCYTES-RELATIVE PERCENT (BEAKER) 1 % 0-1 (test seao=1663) BLOOD GAS, [id number] 16:36:00 Test Item Value Reference Range Comments PH ARTERIAL (BEAKER) (test lfrg=153) 7.47 7.35-7.45 PCO2 ARTERIAL (BEAKER) (test xwrt=284) 32 mmHg 35-45 PO2 ARTERIAL (BEAKER) (test yhsc=198) 60 mmHg 80-90 O2 SATURATION ARTERIAL (BEAKER) (test yszk=554) 92.1 % 96.0-97.0 HCO3 ARTERIAL (BEAKER) (test djpw=023) 22 mmol/L 21-29 BASE EXCESS ARTERIAL (BEAKER) (test vjfq=807) -0.7 mmol/L -2.0-3.0 PATIENT TEMPERATURE (BEAKER) (test qbmq=6475) 37.6 C FIO2 (BEAKER) (test iwlk=2721) 100.0 % OXYGEN SATURATION, [id number] 16:33:00 Test Item Value Reference Range Comments O2 SATURATION (MEASURED) (BEAKER) (test pzcc=3689) 46.3 % LACTIC ACID, [id number] 13:39:00 Test Item Value Reference Range Comments LACTATE BLOOD ARTERIAL (2) (BEAKER) (test 0.9 mmol/L 0.5-2.2 bhlb=2009) Reverse Logistics Analyst ID - MELLY FPOCT-GLUCOSE [id number] 13:09:00 Test Item Value Reference Range Comments POC-GLUCOSE METER (BEAKER) 112 mg/dL 70-110 : TESTED AT [facility] [address] [facility] (test nerc=5801) [facility], [id number]: Reverse Logistics Analyst/Computer Technology Teacher QW=[id number] for MAGDI HURTADO CALCIUM, [id number] 12:35:00 Test Item Value Reference Range Comments CALCIUM IONIZED (BEAKER) (test kzod=619) 1.05 mmol/L 1.12-1.27 PH, BLOOD (BEAKER) (test ljuv=6178) 7.48 OXYGEN SATURATION, [id number] 12:34:00 Test Item Value Reference Range Comments O2 SATURATION (MEASURED) (BEAKER) (test slly=6798) 59.9 % BLOOD GAS, [id number] 12:34:00 Test Item Value Reference Range Comments PH ARTERIAL (BEAKER) (test idgv=677) 7.47 7.35-7.45 PCO2 ARTERIAL (BEAKER) (test dodn=529) 30 mmHg 35-45 PO2 ARTERIAL (BEAKER) (test xthy=277) 72 mmHg 80-90 O2 SATURATION ARTERIAL (BEAKER) (test ozpu=325) 95.5 % 96.0-97.0 HCO3 ARTERIAL (BEAKER) (test yshs=308) 21 mmol/L 21-29 BASE EXCESS ARTERIAL (BEAKER) (test pcid=619) -1.6 mmol/L -2.0-3.0 PATIENT TEMPERATURE (BEAKER) (test xgss=0440) 37.3 C FIO2 (BEAKER) (test zbsg=0160) 100.0 % CBC W/PLT COUNT & AUTO [id number] 09:27:00 Test Item Value Reference Range Comments WHITE BLOOD CELL COUNT (BEAKER) (test vwfl=418) 9.7 K/ L 3.5-10.5 RED BLOOD CELL COUNT (BEAKER) (test oqpl=237) 2.69 M/ L 4.63-6.08 HEMOGLOBIN (BEAKER) (test xhbs=448) 8.1 GM/DL 13.7-17.5 HEMATOCRIT (BEAKER) (test brrr=451) 23.8 % 40.1-51.0 MEAN CORPUSCULAR VOLUME (BEAKER) (test escd=236) 88.5 fL 79.0-92.2 MEAN CORPUSCULAR HEMOGLOBIN (BEAKER) (test 30.1 pg 25.7-32.2 nogb=906) MEAN CORPUSCULAR HEMOGLOBIN CONC (BEAKER) (test 34.0 GM/DL 32.3-36.5 jkdf=172) RED CELL DISTRIBUTION WIDTH (BEAKER) (test 15.2 % 11.6-14.4 knbd=082) PLATELET COUNT (BEAKER) (test bfnz=539) 129 K/CU MM 150-450 MEAN PLATELET VOLUME (BEAKER) (test bvja=650) 10.9 fL 9.4-12.4 NUCLEATED RED BLOOD CELLS (BEAKER) (test 0 /100 WBC 0-0 qelf=854) NEUTROPHILS RELATIVE PERCENT (BEAKER) (test 81 % qzyc=380) LYMPHOCYTES RELATIVE PERCENT (BEAKER) (test 9 % fyid=464) MONOCYTES RELATIVE PERCENT (BEAKER) (test 8 % vsoz=773) EOSINOPHILS RELATIVE PERCENT (BEAKER) (test 0 % dbdt=654) BASOPHILS RELATIVE PERCENT (BEAKER) (test 0 % nxaq=245) NEUTROPHILS ABSOLUTE COUNT (BEAKER) (test 7.88 K/ L 1.78-5.38 kzmv=120) LYMPHOCYTES ABSOLUTE COUNT (BEAKER) (test 0.88 K/ L 1.32-3.57 tmpo=231) MONOCYTES ABSOLUTE COUNT (BEAKER) (test 0.81 K/ L 0.30-0.82 wvjx=424) EOSINOPHILS ABSOLUTE COUNT (BEAKER) (test 0.03 K/ L 0.04-0.54 mtzd=581) BASOPHILS ABSOLUTE COUNT (BEAKER) (test 0.01 K/ L 0.01-0.08 wnds=455) IMMATURE GRANULOCYTES-RELATIVE PERCENT (BEAKER) 1 % 0-1 (test sgto=5043) POCT-GLUCOSE [id number] 08:09:00 Test Item Value Reference Range Comments POC-GLUCOSE METER (BEAKER) 109 mg/dL 70-110 : TESTED AT [facility] [address] [facility] (test xfmb=1956) [facility], [id number]: Reverse Logistics Analyst/Computer Technology Teacher VD=[id number] for GENESIS, MAGDI RAD, CHEST, 1 VIEW, NON [id number] 07:02:00Reason for exam:->s/p ACBShould this be performed [...] Verified Date/Time: 05/28/2019 07 :02:44 Reading Location: [address] Body Reading Room CBC (HEMOGRAM ONLY) 05:39:00 Test Item Value Reference Range Comments WHITE BLOOD CELL COUNT (BEAKER) (test tjce=291) 9.8 K/ L 3.5-10.5 RED BLOOD CELL COUNT (BEAKER) (test bfnh=210) 2.71 M/ L 4.63-6.08 HEMOGLOBIN (BEAKER) (test eknn=497) 8.1 GM/DL 13.7-17.5 HEMATOCRIT (BEAKER) (test pzrb=951) 23.6 % 40.1-51.0 MEAN CORPUSCULAR VOLUME (BEAKER) (test gdxl=561) 87.1 fL 79.0-92.2 MEAN CORPUSCULAR HEMOGLOBIN (BEAKER) (test 29.9 pg 25.7-32.2 qkyr=265) MEAN CORPUSCULAR HEMOGLOBIN CONC (BEAKER) (test 34.3 GM/DL 32.3-36.5 pblv=883) RED CELL DISTRIBUTION WIDTH (BEAKER) (test 15.1 % 11.6-14.4 zvyp=433) PLATELET COUNT (BEAKER) (test tryl=497) 143 K/CU MM 150-450 MEAN PLATELET VOLUME (BEAKER) (test ocan=183) 11.0 fL 9.4-12.4 NUCLEATED RED BLOOD CELLS (BEAKER) (test 0 /100 WBC 0-0 doou=470) CALCIUM, [id number] 04:59:00 Test Item Value Reference Range Comments CALCIUM IONIZED (BEAKER) (test abzw=542) 1.03 mmol/L 1.12-1.27 PH, BLOOD (BEAKER) (test rkrt=1448) 7.50 TROPONIN [id number] 04:15:00 Test Item Value Reference Range Comments TROPONIN I (BEAKER) (test slzq=774) 2.22 ng/mL 0.00-0.03 Troponin I (TnI) levels [...] failure, acidosis, acute neurological disease, and persistent tachyarrhythmia.Reverse Logistics Analyst ID - MARISABEL MBASIC METABOLIC [id number] 04:13:00 Test Item Value Reference Range Comments SODIUM (BEAKER) (test 130 meq/L 136-145 akqx=769) POTASSIUM (BEAKER) (test 4.0 meq/L 3.5-5.1 hdhn=877) CHLORIDE (BEAKER) (test 98 meq/L 98-107 ydsk=503) CO2 (BEAKER) (test 21 meq/L 22-29 sdfb=412) BLOOD UREA NITROGEN 52 mg/dL 7-21 (BEAKER) (test ebmm=154) CREATININE (BEAKER) (test 3.23 mg/dL 0.57-1.25 rvec=875) GLUCOSE RANDOM (BEAKER) 112 mg/dL 70-105 (test qjnp=620) CALCIUM (BEAKER) (test 7.7 mg/dL 8.4-10.2 tuwn=467) EGFR (BEAKER) (test 19 mL/min/1.73 sq m ESTIMATED GFR IS NOT dzvo=0254) ACCURATE CREATININE CLEARANCE IN PREDICTING GLOMERULAR FILTRATION RATE. ESTIMATED GFR IS NOT APPLICABLE FOR DIALYSIS PATIENTS. Reverse Logistics Analyst ID - MARISABEL [id number] 04:03:00 Test Item Value Reference Range Comments PHOSPHORUS (BEAKER) (test rywd=004) 4.8 mg/dL 2.3-4.7 Reverse Logistics Analyst ID - MARISABEL [id number] 04:03:00 Test Item Value Reference Range Comments MAGNESIUM (BEAKER) (test okfm=654) 2.2 mg/dL 1.6-2.6 Reverse Logistics Analyst ID - MARISABEL GASTONNIN [id number] 19:48:00 Test Item Value Reference Range Comments TROPONIN I (BEAKER) (test goer=830) 2.64 ng/mL 0.00-0.03 Troponin I (TnI) levels [...] failure, acidosis, acute neurological disease, and persistent tachyarrhythmia.Reverse Logistics Analyst ID - TANESHANBASIC METABOLIC [id number] 19:41:00 Test Item Value Reference Range Comments SODIUM (BEAKER) (test 130 meq/L 136-145 xpcn=611) POTASSIUM (BEAKER) (test 4.3 meq/L 3.5-5.1 yros=455) CHLORIDE (BEAKER) (test 100 meq/L 98-107 npvn=107) CO2 (BEAKER) (test 21 meq/L 22-29 qvdt=988) BLOOD UREA NITROGEN 49 mg/dL 7-21 (BEAKER) (test kgzf=128) CREATININE (BEAKER) (test 3.12 mg/dL 0.57-1.25 wbno=311) GLUCOSE RANDOM (BEAKER) 115 mg/dL 70-105 (test nywx=302) CALCIUM (BEAKER) (test 8.0 mg/dL 8.4-10.2 vwpi=100) EGFR (BEAKER) (test 20 mL/min/1.73 sq m ESTIMATED GFR IS NOT tkqb=6842) ACCURATE CREATININE CLEARANCE IN PREDICTING GLOMERULAR FILTRATION RATE. ESTIMATED GFR IS NOT APPLICABLE FOR DIALYSIS PATIENTS. Reverse Logistics Analyst ID - KENNLACTIC ACID, [id number] 19:34:00 Test Item Value Reference Range Comments LACTATE BLOOD ARTERIAL (2) (BEAKER) (test 1.0 mmol/L 0.5-2.2 whfk=5565) Reverse Logistics Analyst ID - TANESHANCBC W/PLT COUNT & AUTO [id number] 19:23:00 Test Item Value Reference Range Comments WHITE BLOOD CELL COUNT (BEAKER) (test mcdf=916) 10.8 K/ L 3.5-10.5 RED BLOOD CELL COUNT (BEAKER) (test vnfn=500) 2.67 M/ L 4.63-6.08 HEMOGLOBIN (BEAKER) (test uqnn=154) 8.0 GM/DL 13.7-17.5 HEMATOCRIT (BEAKER) (test xrbo=338) 23.9 % 40.1-51.0 MEAN CORPUSCULAR VOLUME (BEAKER) (test myvn=881) 89.5 fL 79.0-92.2 MEAN CORPUSCULAR HEMOGLOBIN (BEAKER) (test 30.0 pg 25.7-32.2 syjn=277) MEAN CORPUSCULAR HEMOGLOBIN CONC (BEAKER) (test 33.5 GM/DL 32.3-36.5 grrm=226) RED CELL DISTRIBUTION WIDTH (BEAKER) (test 15.4 % 11.6-14.4 recw=616) PLATELET COUNT (BEAKER) (test hgof=858) 133 K/CU MM 150-450 MEAN PLATELET VOLUME (BEAKER) (test cbmc=354) 10.8 fL 9.4-12.4 NUCLEATED RED BLOOD CELLS (BEAKER) (test 0 /100 WBC 0-0 nykd=763) NEUTROPHILS RELATIVE PERCENT (BEAKER) (test 81 % rkzz=588) LYMPHOCYTES RELATIVE PERCENT (BEAKER) (test 9 % cutj=758) MONOCYTES RELATIVE PERCENT (BEAKER) (test 9 % lzut=269) EOSINOPHILS RELATIVE PERCENT (BEAKER) (test 0 % rsfr=721) BASOPHILS RELATIVE PERCENT (BEAKER) (test 0 % wxmo=769) NEUTROPHILS ABSOLUTE COUNT (BEAKER) (test 8.73 K/ L 1.78-5.38 rgsp=301) LYMPHOCYTES ABSOLUTE COUNT (BEAKER) (test 0.96 K/ L 1.32-3.57 wlzf=204) MONOCYTES ABSOLUTE COUNT (BEAKER) (test 1.00 K/ L 0.30-0.82 gtul=639) EOSINOPHILS ABSOLUTE COUNT (BEAKER) (test 0.00 K/ L 0.04-0.54 much=129) BASOPHILS ABSOLUTE COUNT (BEAKER) (test 0.01 K/ L 0.01-0.08 ybsb=368) IMMATURE GRANULOCYTES-RELATIVE PERCENT (BEAKER) 1 % 0-1 (test brcm=7107) BLOOD GAS, [id number] 19:20:00 Test Item Value Reference Range Comments PH ARTERIAL (BEAKER) (test hvzm=878) 7.45 7.35-7.45 PCO2 ARTERIAL (BEAKER) (test ntom=151) 31 mmHg 35-45 PO2 ARTERIAL (BEAKER) (test eyrc=515) 90 mmHg 80-90 O2 SATURATION ARTERIAL (BEAKER) (test cvke=565) 97.4 % 96.0-97.0 HCO3 ARTERIAL (BEAKER) (test twwz=755) 21 mmol/L 21-29 BASE EXCESS ARTERIAL (BEAKER) (test ucrz=843) -2.5 mmol/L -2.0-3.0 PATIENT TEMPERATURE (BEAKER) (test lvwk=4857) 36.7 C FIO2 (BEAKER) (test aexn=9918) 36.0 % OXYGEN SATURATION, [id number] 19:16:00 Test Item Value Reference Range Comments O2 SATURATION (MEASURED) (BEAKER) (test gjue=1074) 35.8 % OXYGEN SATURATION, [id number] 16:48:00 Test Item Value Reference Range Comments O2 SATURATION (MEASURED) (BEAKER) (test lqgx=3540) 35.0 % OXYGEN SATURATION, [id number] 13:44:00 Test Item Value Reference Range Comments O2 SATURATION (MEASURED) (BEAKER) (test aelo=6721) 28.7 % HEMOGLOBIN AND [id number] 13:36:00 Test Item Value Reference Range Comments HEMOGLOBIN (BEAKER) (test pjqd=391) 8.3 GM/DL 13.7-17.5 HEMATOCRIT (BEAKER) (test uhjv=332) 24.9 % 40.1-51.0 Reverse Logistics Analyst ID - [id number] SATURATION, [id number] 10:37:00 Test Item Value Reference Range Comments O2 SATURATION (MEASURED) (BEAKER) (test jnyo=9697) 39.1 % OXYGEN SATURATION, [id number] 09:45:00 Test Item Value Reference Range Comments O2 SATURATION (MEASURED) (BEAKER) (test ryhc=3285) 28.0 % RAD, CHEST, 1 VIEW, NON [id number] 08:03:00Reason for exam:->s/p ACBShould this be performed at the bedside?->YesFINAL REPORT RAD, CHEST, 1 VIEW, NON DEPT INDICATION: s/p ACB COMPARISON: Prior day' s exam FINDINGS: Portable frontal view of the chest. IMPRESSION: Support Lines: Buena-Allison tip overlies the pulmonary outflow tract. Mediastinal drains. Lungs and pleura: Small right effusion and interstitial edema are unchanged. Trace left effusion. No pneumothorax.Heart and mediastinum: Stable contours. Stable surgical changes.Additional findings: None. Signed: Marcella Burdick Verified Date/Time: 05/27/2019 08:03:19 Reading Location: [facility] C013V Neuro Reading Room POCT-GLUCOSE [id number] 06:38:00 Test Item Value Reference Range Comments POC-GLUCOSE METER (BEAKER) 134 mg/dL 70-110 : TESTED AT [facility] [address] [place] [address] (test whng=1358) [facility], [address]: Reverse Logistics Analyst/Computer Technology Teacher UF=[id number] for SOURAV CARPIO CALCIUM, [id number] 04:05:00 Test Item Value Reference Range Comments CALCIUM IONIZED (BEAKER) (test xtwo=215) 1.11 mmol/L 1.12-1.27 PH, BLOOD (BEAKER) (test odmo=9961) 7.41 OXYGEN SATURATION, [id number] 04:04:00 Test Item Value Reference Range Comments O2 SATURATION (MEASURED) (BEAKER) (test qhew=0346) 40.6 % BLOOD GAS, [id number] 04:04:00 Test Item Value Reference Range Comments PH ARTERIAL (BEAKER) (test qwre=153) 7.41 7.35-7.45 PCO2 ARTERIAL (BEAKER) (test qgzn=442) 34 mmHg 35-45 PO2 ARTERIAL (BEAKER) (test wlad=693) 82 mmHg 80-90 O2 SATURATION ARTERIAL (BEAKER) (test yhdm=148) 96.5 % 96.0-97.0 HCO3 ARTERIAL (BEAKER) (test tjrs=420) 21 mmol/L 21-29 BASE EXCESS ARTERIAL (BEAKER) (test eolh=707) -3.1 mmol/L -2.0-3.0 PATIENT TEMPERATURE (BEAKER) (test ruyz=9712) 36.7 C FIO2 (BEAKER) (test ailo=9171) 36.0 % BASIC METABOLIC [id number] 04:02:00 Test Item Value Reference Range Comments SODIUM (BEAKER) (test 134 meq/L 136-145 dmyn=256) POTASSIUM (BEAKER) (test 4.5 meq/L 3.5-5.1 jhmw=784) CHLORIDE (BEAKER) (test 103 meq/L 98-107 mmpn=016) CO2 (BEAKER) (test 21 meq/L 22-29 rmok=387) BLOOD UREA NITROGEN 36 mg/dL 7-21 (BEAKER) (test kgjg=228) CREATININE (BEAKER) (test 2.89 mg/dL 0.57-1.25 ixtg=569) GLUCOSE RANDOM (BEAKER) 132 mg/dL 70-105 (test mbyw=029) CALCIUM (BEAKER) (test 8.0 mg/dL 8.4-10.2 ebvb=621) EGFR (BEAKER) (test 22 mL/min/1.73 sq m ESTIMATED GFR IS NOT phpg=2451) ACCURATE CREATININE CLEARANCE IN PREDICTING GLOMERULAR FILTRATION RATE. ESTIMATED GFR IS NOT APPLICABLE FOR DIALYSIS PATIENTS. Reverse Logistics Analyst ID - MARISABEL [id number] 03:52:00 Test Item Value Reference Range Comments PHOSPHORUS (BEAKER) (test zmpg=379) 4.6 mg/dL 2.3-4.7 Reverse Logistics Analyst ID - MARISABEL [id number] 03:52:00 Test Item Value Reference Range Comments MAGNESIUM (BEAKER) (test ogam=714) 2.4 mg/dL 1.6-2.6 Reverse Logistics Analyst ID - MARISABEL [id number] 03:49:00 Test Item Value Reference Range Comments PROTIME (BEAKER) (test eqlk=195) 16.6 seconds 11.9-14.2 INR (BEAKER) (test ndci=605) 1.4 <=5.9 PARTIAL THROMBOPLASTIN TIME (BEAKER) (test 52.6 seconds 22.5-36.0 qxwe=224) Effective 10/12/2018: PT Reference Range ChangeNew: 11.9-14.2 Previous: 11.7- 14.7RECOMMENDED COUMADIN/WARFARIN INR THERAPY RANGESSTANDARD DOSE: 2.0-3.0 Includes: PROPHYLAXIS for venous thrombosis, systemic embolization; TREATMENT for venous thrombosis and/or pulmonary embolus.HIGH RISK: Target INR is2.5-3.5 for patients wiht mechanical heart valves.CBC W/PLT COUNT & AUTO [id number] 03:47:00 Test Item Value Reference Range Comments WHITE BLOOD CELL COUNT (BEAKER) (test neru=838) 8.7 K/ L 3.5-10.5 RED BLOOD CELL COUNT (BEAKER) (test craj=283) 2.66 M/ L 4.63-6.08 HEMOGLOBIN (BEAKER) (test nxuy=943) 8.0 GM/DL 13.7-17.5 HEMATOCRIT (BEAKER) (test byrh=790) 23.6 % 40.1-51.0 MEAN CORPUSCULAR VOLUME (BEAKER) (test dwtz=832) 88.7 fL 79.0-92.2 MEAN CORPUSCULAR HEMOGLOBIN (BEAKER) (test 30.1 pg 25.7-32.2 vkvf=042) MEAN CORPUSCULAR HEMOGLOBIN CONC (BEAKER) (test 33.9 GM/DL 32.3-36.5 fvlf=324) RED CELL DISTRIBUTION WIDTH (BEAKER) (test 15.5 % 11.6-14.4 aoky=896) PLATELET COUNT (BEAKER) (test alzy=959) 114 K/CU MM 150-450 MEAN PLATELET VOLUME (BEAKER) (test cxvh=551) 10.6 fL 9.4-12.4 NUCLEATED RED BLOOD CELLS (BEAKER) (test 0 /100 WBC 0-0 hzhs=415) NEUTROPHILS RELATIVE PERCENT (BEAKER) (test 79 % vbkp=702) LYMPHOCYTES RELATIVE PERCENT (BEAKER) (test 9 % dunn=624) MONOCYTES RELATIVE PERCENT (BEAKER) (test 11 % xvac=083) EOSINOPHILS RELATIVE PERCENT (BEAKER) (test 0 % djaq=197) BASOPHILS RELATIVE PERCENT (BEAKER) (test 0 % ppoi=642) NEUTROPHILS ABSOLUTE COUNT (BEAKER) (test 6.91 K/ L 1.78-5.38 vqoq=338) LYMPHOCYTES ABSOLUTE COUNT (BEAKER) (test 0.81 K/ L 1.32-3.57 lhvh=646) MONOCYTES ABSOLUTE COUNT (BEAKER) (test 0.93 K/ L 0.30-0.82 mias=242) EOSINOPHILS ABSOLUTE COUNT (BEAKER) (test 0.00 K/ L 0.04-0.54 arok=193) BASOPHILS ABSOLUTE COUNT (BEAKER) (test 0.01 K/ L 0.01-0.08 oonz=954) IMMATURE GRANULOCYTES-RELATIVE PERCENT (BEAKER) 1 % 0-1 (test qium=3505) POCT-GLUCOSE [id number] 01:56:00 Test Item Value Reference Range Comments POC-GLUCOSE METER (BEAKER) 125 mg/dL 70-110 : TESTED AT [facility] [address] [facility] (test oivl=2407) [facility], [address]: Reverse Logistics Analyst/Computer Technology Teacher RS=[id number] for SOURAV CARPIO BASIC METABOLIC [id number] 21:41:00 Test Item Value Reference Range Comments SODIUM (BEAKER) (test 135 meq/L 136-145 yxks=818) POTASSIUM (BEAKER) (test 4.7 meq/L 3.5-5.1 cjkv=463) CHLORIDE (BEAKER) (test 105 meq/L 98-107 buks=406) CO2 (BEAKER) (test 21 meq/L 22-29 toxo=259) BLOOD UREA NITROGEN 33 mg/dL 7-21 (BEAKER) (test tbfm=948) CREATININE (BEAKER) (test 2.88 mg/dL 0.57-1.25 dwxy=555) GLUCOSE RANDOM (BEAKER) 120 mg/dL 70-105 (test epyf=970) CALCIUM (BEAKER) (test 7.9 mg/dL 8.4-10.2 wtbr=378) EGFR (BEAKER) (test 22 mL/min/1.73 sq m ESTIMATED GFR IS NOT wcfk=8560) ACCURATE CREATININE CLEARANCE IN PREDICTING GLOMERULAR FILTRATION RATE. ESTIMATED GFR IS NOT APPLICABLE FOR DIALYSIS PATIENTS. Reverse Logistics Analyst ID - [id number] 21:38:00 Test Item Value Reference Range Comments MAGNESIUM (BEAKER) (test nwuf=309) 2.3 mg/dL 1.6-2.6 Reverse Logistics Analyst ID - DBLACTIC ACID, [id number] 21:36:00 Test Item Value Reference Range Comments LACTATE BLOOD ARTERIAL (2) 1.5 mmol/L 0.5-2.2 Specimen moderately hemolyzed (BEAKER) (test hydf=9625) Reverse Logistics Analyst ID - DBHEMOGLOBIN AND [id number] 21:25:00 Test Item Value Reference Range Comments HEMOGLOBIN (BEAKER) (test hchd=825) 8.2 GM/DL 13.7-17.5 HEMATOCRIT (BEAKER) (test qkvx=895) 24.6 % 40.1-51.0 Reverse Logistics Analyst ID - [id number], [id number] 20:58:00 Test Item Value Reference Range Comments CALCIUM IONIZED (BEAKER) (test cmiu=698) 1.08 mmol/L 1.12-1.27 PH, BLOOD (BEAKER) (test arnb=3689) 7.42 POCT-GLUCOSE [id number] 16:35:00 Test Item Value Reference Range Comments POC-GLUCOSE METER (BEAKER) 93 mg/dL 70-110 : Notified RN/MD: TESTED AT (test usno=2423) [facility] [address] [facility], [address]: Reverse Logistics Analyst/Computer Technology Teacher PC=[id number] for MONE TERRAZAS CBC W/PLT COUNT & AUTO [id number] 14:27:00 Test Item Value Reference Range Comments WHITE BLOOD CELL COUNT (BEAKER) (test ihmz=022) 9.0 K/ L 3.5-10.5 RED BLOOD CELL COUNT (BEAKER) (test yhjq=252) 2.93 M/ L 4.63-6.08 HEMOGLOBIN (BEAKER) (test xmsg=737) 8.7 GM/DL 13.7-17.5 HEMATOCRIT (BEAKER) (test qubq=167) 25.8 % 40.1-51.0 MEAN CORPUSCULAR VOLUME (BEAKER) (test iyuk=415) 88.1 fL 79.0-92.2 MEAN CORPUSCULAR HEMOGLOBIN (BEAKER) (test 29.7 pg 25.7-32.2 duly=520) MEAN CORPUSCULAR HEMOGLOBIN CONC (BEAKER) (test 33.7 GM/DL 32.3-36.5 ythh=974) RED CELL DISTRIBUTION WIDTH (BEAKER) (test 14.8 % 11.6-14.4 iiwz=357) PLATELET COUNT (BEAKER) (test hgyh=787) 153 K/CU MM 150-450 MEAN PLATELET VOLUME (BEAKER) (test edqt=570) 10.7 fL 9.4-12.4 NUCLEATED RED BLOOD CELLS (BEAKER) (test 0 /100 WBC 0-0 nexf=894) NEUTROPHILS RELATIVE PERCENT (BEAKER) (test 81 % lcqr=993) LYMPHOCYTES RELATIVE PERCENT (BEAKER) (test 8 % blat=841) MONOCYTES RELATIVE PERCENT (BEAKER) (test 11 % rhgm=127) EOSINOPHILS RELATIVE PERCENT (BEAKER) (test 0 % sxgt=810) BASOPHILS RELATIVE PERCENT (BEAKER) (test 0 % jvub=764) NEUTROPHILS ABSOLUTE COUNT (BEAKER) (test 7.24 K/ L 1.78-5.38 lsac=691) LYMPHOCYTES ABSOLUTE COUNT (BEAKER) (test 0.75 K/ L 1.32-3.57 xydl=428) MONOCYTES ABSOLUTE COUNT (BEAKER) (test 0.94 K/ L 0.30-0.82 qdhc=629) EOSINOPHILS ABSOLUTE COUNT (BEAKER) (test 0.00 K/ L 0.04-0.54 swjr=416) BASOPHILS ABSOLUTE COUNT (BEAKER) (test 0.01 K/ L 0.01-0.08 mnpj=889) IMMATURE GRANULOCYTES-RELATIVE PERCENT (BEAKER) 0 % 0-1 (test ufkf=7279) POCT-GLUCOSE [id number] 14:18:00 Test Item Value Reference Range Comments POC-GLUCOSE METER (BEAKER) 96 mg/dL 70-110 : Notified RN/MD: TESTED AT (test zamq=6100) [address], [address]: Reverse Logistics Analyst/Computer Technology Teacher [id number] for MONE TERRAZAS POCT-GLUCOSE [id number] 12:04:00 Test Item Value Reference Range Comments POC-GLUCOSE METER (BEAKER) 132 mg/dL 70-110 : Notified RN/MD: TESTED AT (test dpfz=8658) [address], [address]: Reverse Logistics Analyst/Computer Technology Teacher [id number] for SENTHIL TERRAZASI PLATELET AGGREGATION: FUNCTION [id number] 10:31:00 Test Item Value Reference Range Comments [id number] (BEAKER) Lourdes Nielson MD (test vrcb=6159) (electronic signature) PLATELET COUNT AGG (BEAKER) 189 K/CU MM 150-450 (test akvt=4420) PLATELET RICH PLASMA(BEAKER) 242 k/cu mm 200-300 (test tyha=3766) PLATELET FUNCTION SCREEN Normal aggregation results INTERPRETATION (BEAKER) (test with ADP. No evidence of cjpb=8774) platelet dysfunction or P2Y12 inhibitor effect. Platelet Function Screen results may be falsely low with platelet counts<75, 000/cu mm.Reverse Logistics Analyst ID- [id number]-GLUCOSE [id number] 10:01:00 Test Item Value Reference Range Comments POC-GLUCOSE METER (BEAKER) 161 mg/dL 70-110 : TESTED AT [address] (test ffle=4264) [facility], [address]: Reverse Logistics Analyst/Computer Technology Teacher [id number] for MONE TERRAZAS RAD, CHEST, 1 VIEW, NON [id number] 08:11:00Reason for exam:->s/p ACBShould this be performed at the bedside?->YesFINAL REPORT RAD, CHEST, 1 VIEW, NON DEPT INDICATION: s/p ACB COMPARISON: Prior day' s exam FINDINGS: Portable frontal view of the chest. IMPRESSION: Support Lines: Buena-Allison tip overlies the pulmonary outflow tract. Cardiac valvular prosthesis. Sternotomy wires. Lungs and pleura: Diffuse interstitial opacities and trace right effusion, favored to represent interstitial edema. Superimposed infection may be excluded clinically. No pneumothorax.Heart and mediastinum: Stable contours. Stable surgical changes.Additional findings: None. Signed: Marcella Burdick VerifiedDate/Time: 05/26/2019 08:11:34 Reading Location: [facility] Radiology Reading Room POCT-GLUCOSE [id number] 07:34: 00 Test Item Value Reference Range Comments POC-GLUCOSE METER (BEAKER) 179 mg/dL 70-110 : Notified RN/MD: TESTED AT (test ecvw=6594) [address], [address]: Reverse Logistics Analyst/Computer Technology Teacher [id number] for MONE TERRAZAS CALCIUM, [id number] 07:09:00 Test Item Value Reference Range Comments CALCIUM IONIZED (BEAKER) (test htid=762) 1.04 mmol/L 1.12-1.27 PH, BLOOD (BEAKER) (test puge=3878) 7.42 THROMBOELASTOGRAPH (TEG)2019-05-26 06:52:00 Test Item Value Reference Range Comments TEG ACTIVATED CLOTTING TIME (BEAKER) (test 5.1 minutes 4.0-7.0 rpnp=4604) TEG FIBRINOGEN ACTIVITY (BEAKER) (test 75.1 degrees 61.0-73.0 tcmu=2892) TEG PLT. AGGREGATION (BEAKER) (test ffom=8242) 65.8 MM 55.0-65.0 TEG FIBRINOLYSIS (BEAKER) (test rrjd=5904) 2.3 % 0.0-5.0 TGH ACTIVATED CLOTTING TIME (BEAKER) (test 4.8 minutes 4.0-7.0 ndnx=6989) TGH FIBRINOGEN ACTIVITY (BEAKER) (test 76.4 degrees 61.0-73.0 wfrw=3879) TGH PLT. AGGREGATION (BEAKER) (test yeok=7208) 71.7 MM 55.0-65.0 TGH FIBRINOLYSIS (BEAKER) (test dduw=0032) 0.0 % 0.0-5.0 [id number] 06:19:00 Test Item Value Reference Range Comments FIBRINOGEN LEVEL (BEAKER) (test dsms=939) 305 mg/dl 225-434 [id number] 06:19:00 Test Item Value Reference Range Comments PARTIAL THROMBOPLASTIN TIME (BEAKER) (test 44.3 seconds 22.5-36.0 ctao=221) PROTHROMBIN TIME/[id number] 06:18:00 Test Item Value Reference Range Comments PROTIME (BEAKER) (test abyq=227) 17.8 seconds 11.9-14.2 INR (BEAKER) (test fgnd=927) 1.5 <=5.9 Effective 10/12/2018: PT Reference Range ChangeNew: 11.9-14.2 Previous: 11.7- 14.7RECOMMENDED COUMADIN/WARFARIN INR THERAPY RANGESSTANDARD DOSE: 2.0-3.0 Includes: PROPHYLAXIS for venous thrombosis, systemic embolization; TREATMENT for venous thrombosis and/or pulmonary embolus.HIGH RISK: Target INR is2.5-3.5 for patients wiht mechanical heart valves.BASIC METABOLIC [id number] 06:16: 00 Test Item Value Reference Range Comments SODIUM (BEAKER) (test 140 meq/L 136-145 pnel=603) POTASSIUM (BEAKER) (test 4.8 meq/L 3.5-5.1 hlbc=209) CHLORIDE (BEAKER) (test 110 meq/L 98-107 cqby=964) CO2 (BEAKER) (test 20 meq/L 22-29 mdsg=319) BLOOD UREA NITROGEN 27 mg/dL 7-21 (BEAKER) (test qcak=329) CREATININE (BEAKER) (test 2.38 mg/dL 0.57-1.25 ufni=509) GLUCOSE RANDOM (BEAKER) 215 mg/dL 70-105 (test cqkv=395) CALCIUM (BEAKER) (test 7.5 mg/dL 8.4-10.2 pujq=500) EGFR (BEAKER) (test 27 mL/min/1.73 sq m ESTIMATED GFR IS NOT ndhm=0047) ACCURATE CREATININE CLEARANCE IN PREDICTING GLOMERULAR FILTRATION RATE. ESTIMATED GFR IS NOT APPLICABLE FOR DIALYSIS PATIENTS. Reverse Logistics Analyst ID - MARISABEL [id number] 06:14:00 Test Item Value Reference Range Comments PHOSPHORUS (BEAKER) (test xqek=078) 4.0 mg/dL 2.3-4.7 Reverse Logistics Analyst ID - MARISABEL [id number] 06:14:00 Test Item Value Reference Range Comments MAGNESIUM (BEAKER) (test puox=950) 2.4 mg/dL 1.6-2.6 Reverse Logistics Analyst ID - MARISABEL MHEPATIC FUNCTION [id number] 06:14:00 Test Item Value Reference Range Comments TOTAL PROTEIN (BEAKER) (test pftp=801) 5.3 gm/dL 6.0-8.3 ALBUMIN (BEAKER) (test qowj=5847) 3.4 g/dL 3.5-5.0 BILIRUBIN TOTAL (BEAKER) (test buya=004) 0.7 mg/dL 0.2-1.2 BILIRUBIN DIRECT (BEAKER) (test gkgi=208) 0.4 mg/dL 0.1-0.5 ALKALINE PHOSPHATASE (BEAKER) (test aqqb=878) 68 U/L 40-150 AST (SGOT) (BEAKER) (test qdtt=627) 20 U/L 5-34 ALT (SGPT) (BEAKER) (test eutp=475) 12 U/L 6-55 Reverse Logistics Analyst ID - MARISABEL MPLATELET [id number] 06:00:00 Test Item Value Reference Range Comments PLATELET COUNT (BEAKER) (test dezd=889) 180 K/CU MM 150-450 Reverse Logistics Analyst ID - [id number] AND [id number] 06:00:00 Test Item Value Reference Range Comments HEMOGLOBIN (BEAKER) (test wrfh=860) 8.5 GM/DL 13.7-17.5 HEMATOCRIT (BEAKER) (test ztzk=175) 25.2 % 40.1-51.0 Reverse Logistics Analyst ID - [id number]-GLUCOSE [id number] 05:43:00 Test Item Value Reference Range Comments POC-GLUCOSE METER (BEAKER) 199 mg/dL 70-110 : TESTED AT [address] (test mdoh=6319) [facility], [id number]: Reverse Logistics Analyst/Computer Technology Teacher IX=[id number] for SOURAV CARPIO OXYGEN SATURATION, [id number] 04:19:00 Test Item Value Reference Range Comments O2 SATURATION (MEASURED) (BEAKER) (test pdov=8951) 50.7 % [id number] 04:10:00 Test Item Value Reference Range Comments PROTIME (BEAKER) (test dpzp=830) 18.2 seconds 11.9-14.2 INR (BEAKER) (test tuax=920) 1.6 <=5.9 PARTIAL THROMBOPLASTIN TIME (BEAKER) (test 44.8 seconds 22.5-36.0 ofsv=000) Effective 10/12/2018: PT Reference Range ChangeNew: 11.9-14.2 Previous: 11.7- 14.7RECOMMENDED COUMADIN/WARFARIN INR THERAPY RANGESSTANDARD DOSE: 2.0-3.0 Includes: PROPHYLAXIS for venous thrombosis, systemic embolization; TREATMENT for venous thrombosis and/or pulmonary embolus.HIGH RISK: Target INR is2.5-3.5 for patients wiht mechanical heart valves.CBC W/PLT COUNT & AUTO [id number] 04:05:00 Test Item Value Reference Range Comments WHITE BLOOD CELL COUNT (BEAKER) (test ceuc=012) 8.4 K/ L 3.5-10.5 RED BLOOD CELL COUNT (BEAKER) (test sfqf=761) 2.84 M/ L 4.63-6.08 HEMOGLOBIN (BEAKER) (test toat=735) 8.5 GM/DL 13.7-17.5 HEMATOCRIT (BEAKER) (test hcwt=997) 25.6 % 40.1-51.0 MEAN CORPUSCULAR VOLUME (BEAKER) (test ajks=438) 90.1 fL 79.0-92.2 MEAN CORPUSCULAR HEMOGLOBIN (BEAKER) (test 29.9 pg 25.7-32.2 aswr=452) MEAN CORPUSCULAR HEMOGLOBIN CONC (BEAKER) (test 33.2 GM/DL 32.3-36.5 hwfw=065) RED CELL DISTRIBUTION WIDTH (BEAKER) (test 13.9 % 11.6-14.4 vlpw=740) PLATELET COUNT (BEAKER) (test ilwh=503) 188 K/CU MM 150-450 MEAN PLATELET VOLUME (BEAKER) (test llvu=104) 10.3 fL 9.4-12.4 NUCLEATED RED BLOOD CELLS (BEAKER) (test 0 /100 WBC 0-0 wciu=910) NEUTROPHILS RELATIVE PERCENT (BEAKER) (test 80 % tzwc=091) LYMPHOCYTES RELATIVE PERCENT (BEAKER) (test 9 % koes=737) MONOCYTES RELATIVE PERCENT (BEAKER) (test 11 % lsml=005) EOSINOPHILS RELATIVE PERCENT (BEAKER) (test 0 % jrgx=301) BASOPHILS RELATIVE PERCENT (BEAKER) (test 0 % vsrk=201) NEUTROPHILS ABSOLUTE COUNT (BEAKER) (test 6.76 K/ L 1.78-5.38 yvep=281) LYMPHOCYTES ABSOLUTE COUNT (BEAKER) (test 0.74 K/ L 1.32-3.57 tikk=365) MONOCYTES ABSOLUTE COUNT (BEAKER) (test 0.89 K/ L 0.30-0.82 tfid=248) EOSINOPHILS ABSOLUTE COUNT (BEAKER) (test 0.01 K/ L 0.04-0.54 woir=396) BASOPHILS ABSOLUTE COUNT (BEAKER) (test 0.02 K/ L 0.01-0.08 mdqj=530) IMMATURE GRANULOCYTES-RELATIVE PERCENT (BEAKER) 0 % 0-1 (test hqgb=6702) [id number] 04:00:00 Test Item Value Reference Range Comments FIBRINOGEN LEVEL (BEAKER) (test npyd=515) 271 mg/dl 225-434 BLOOD GAS, [id number] 03:52:00 Test Item Value Reference Range Comments PH ARTERIAL (BEAKER) (test qsbr=013) 7.42 7.35-7.45 PCO2 ARTERIAL (BEAKER) (test drtv=051) 32 mmHg 35-45 PO2 ARTERIAL (BEAKER) (test exjc=013) 81 mmHg 80-90 O2 SATURATION ARTERIAL (BEAKER) (test nnlt=911) 96.3 % 96.0-97.0 HCO3 ARTERIAL (BEAKER) (test jjrh=611) 20 mmol/L 21-29 BASE EXCESS ARTERIAL (BEAKER) (test rilf=124) -3.6 mmol/L -2.0-3.0 PATIENT TEMPERATURE (BEAKER) (test jgzv=7773) 36.8 C FIO2 (BEAKER) (test xiuh=5546) 36.0 % POCT-GLUCOSE [id number] 02:18:00 Test Item Value Reference Range Comments POC-GLUCOSE METER (BEAKER) 215 mg/dL 70-110 : TESTED AT [address] (test iczl=7556) [facility], [id number]: Reverse Logistics Analyst/Computer Technology Teacher NB=[id number] for SOURAV CARPIO LACTIC ACID, [id number] 02:12:00 Test Item Value Reference Range Comments LACTATE BLOOD ARTERIAL (2) (BEAKER) (test 4.2 mmol/L 0.5-2.2 ilpm=1227) Reverse Logistics Analyst ID - MARISABEL MHEMOGLOBIN AND [id number] 00:17:00 Test Item Value Reference Range Comments HEMOGLOBIN (BEAKER) (test ycau=004) 7.2 GM/DL 13.7-17.5 HEMATOCRIT (BEAKER) (test wlqy=240) 22.0 % 40.1-51.0 Reverse Logistics Analyst ID - 6000BLOOD GAS, [id number] 00:17:00 Test Item Value Reference Range Comments PH ARTERIAL (BEAKER) (test vrcu=526) 7.45 7.35-7.45 PCO2 ARTERIAL (BEAKER) (test mzsm=860) 32 mmHg 35-45 PO2 ARTERIAL (BEAKER) (test qooj=016) 85 mmHg 80-90 O2 SATURATION ARTERIAL (BEAKER) (test ozin=209) 96.9 % 96.0-97.0 HCO3 ARTERIAL (BEAKER) (test wmiw=635) 22 mmol/L 21-29 BASE EXCESS ARTERIAL (BEAKER) (test eodh=418) -1.8 mmol/L -2.0-3.0 PATIENT TEMPERATURE (BEAKER) (test wtso=0394) 36.8 C FIO2 (BEAKER) (test jjgj=3336) 40.0 % [id number] 22:32:00 Test Item Value Reference Range Comments PARTIAL THROMBOPLASTIN TIME (BEAKER) (test 92.6 seconds 22.5-36.0 fwes=554) [id number] 22:31:00 Test Item Value Reference Range Comments FIBRINOGEN LEVEL (BEAKER) (test khfk=380) 251 mg/dl 225-434 PROTHROMBIN TIME/[id number] 22:30:00 Test Item Value Reference Range Comments PROTIME (BEAKER) (test tvvz=728) 17.6 seconds 11.9-14.2 INR (BEAKER) (test rokt=352) 1.5 <=5.9 Effective 10/12/2018: PT Reference Range ChangeNew: 11.9-14.2 Previous: 11.7- 14.7RECOMMENDED COUMADIN/WARFARIN INR THERAPY RANGESSTANDARD DOSE: 2.0-3.0 Includes: PROPHYLAXIS for venous thrombosis, systemic embolization; TREATMENT for venous thrombosis and/or pulmonary embolus.HIGH RISK: Target INR is2.5-3.5 for patients wiht mechanical heart valves.CBC (HEMOGRAM ONLY)2019-05-25 22:23:00 Test Item Value Reference Range Comments WHITE BLOOD CELL COUNT (BEAKER) (test vkfn=668) 9.1 K/ L 3.5-10.5 RED BLOOD CELL COUNT (BEAKER) (test svtr=310) 2.68 M/ L 4.63-6.08 HEMOGLOBIN (BEAKER) (test irxy=161) 8.2 GM/DL 13.7-17.5 HEMATOCRIT (BEAKER) (test uziy=131) 23.9 % 40.1-51.0 MEAN CORPUSCULAR VOLUME (BEAKER) (test ulug=448) 89.2 fL 79.0-92.2 MEAN CORPUSCULAR HEMOGLOBIN (BEAKER) (test 30.6 pg 25.7-32.2 azfr=468) MEAN CORPUSCULAR HEMOGLOBIN CONC (BEAKER) (test 34.3 GM/DL 32.3-36.5 frqx=669) RED CELL DISTRIBUTION WIDTH (BEAKER) (test 14.2 % 11.6-14.4 casm=431) PLATELET COUNT (BEAKER) (test basi=090) 212 K/CU MM 150-450 MEAN PLATELET VOLUME (BEAKER) (test nqei=762) 10.0 fL 9.4-12.4 NUCLEATED RED BLOOD CELLS (BEAKER) (test 0 /100 WBC 0-0 gcpp=039) LACTIC ACID, [id number] 21:52:00 Test Item Value Reference Range Comments LACTATE BLOOD ARTERIAL (2) (BEAKER) (test 4.2 mmol/L 0.5-2.2 uqzm=3187) Reverse Logistics Analyst ID - MEERA EGLUCOSE-STAT [id number] 21:41:00 Test Item Value Reference Range Comments GLUCOSE RANDOM (BEAKER) (test irel=059) 197 mg/dL 70-110 HGB/HCT (H&H) - STAT [id number] 21:41:00 Test Item Value Reference Range Comments HEMOGLOBIN (BEAKER) (test xjxx=169) 8.7 g/dL 13.0-16.8 HEMATOCRIT (BEAKER) (test esvu=693) 26.0 % 40.0-50.0 SODIUM NA-STAT [id number] 21:40:00 Test Item Value Reference Range Comments SODIUM (BEAKER) (test iljb=318) 137 meq/L 135-148 POTASSIUM-STAT [id number] 21:40:00 Test Item Value Reference Range Comments POTASSIUM (BEAKER) (test yagy=650) 4.5 meq/L 3.6-5.5 BLOOD GAS, [id number] 21:40:00 Test Item Value Reference Range Comments PH ARTERIAL (BEAKER) (test gouv=357) 7.43 7.35-7.45 PCO2 ARTERIAL (BEAKER) (test nssh=925) 34 mmHg 35-45 PO2 ARTERIAL (BEAKER) (test wjrj=906) 82 mmHg 80-90 O2 SATURATION ARTERIAL (BEAKER) (test pare=669) 96.6 % 96.0-97.0 HCO3 ARTERIAL (BEAKER) (test lbts=761) 22 mmol/L 21-29 BASE EXCESS ARTERIAL (BEAKER) (test bqqf=367) -1.6 mmol/L -2.0-3.0 PATIENT TEMPERATURE (BEAKER) (test pgku=6076) 36.7 C FIO2 (BEAKER) (test wmkr=7335) 40.0 % LACTIC ACID, [id number] 19:53:00 Test Item Value Reference Range Comments LACTATE BLOOD ARTERIAL (2) (BEAKER) (test 5.8 mmol/L 0.5-2.2 rgit=8379) Reverse Logistics Analyst ID - MEERA GAN GAS, [id number] 19:29:00 Test Item Value Reference Range Comments PH ARTERIAL (BEAKER) (test twpg=562) 7.36 7.35-7.45 PCO2 ARTERIAL (BEAKER) (test twsq=629) 31 mmHg 35-45 PO2 ARTERIAL (BEAKER) (test whmf=124) 68 mmHg 80-90 O2 SATURATION ARTERIAL (BEAKER) (test ipvr=273) 93.7 % 96.0-97.0 HCO3 ARTERIAL (BEAKER) (test izrf=994) 17 mmol/L 21-29 BASE EXCESS ARTERIAL (BEAKER) (test tnhd=292) -7.9 mmol/L -2.0-3.0 PATIENT TEMPERATURE (BEAKER) (test lkad=2379) 36.2 C FIO2 (BEAKER) (test krik=8345) 40.0 % CALCIUM, [id number] 19:28:00 Test Item Value Reference Range Comments CALCIUM IONIZED (BEAKER) (test gent=019) 1.10 mmol/L 1.12-1.27 PH, BLOOD (BEAKER) (test sago=1231) 7.36 RAD, CHEST, 1 VIEW, NON [id number] 19:01:00FINAL REPORT Chest, portable AP view History: Status post ACD Comparison: 2019 IMPRESSION: The tip of endotracheal tube is at the level of the clavicles. The heart is stably enlarged. Patient status post median sternotomy. Right IJ Buena-Allison catheter tip projects over the pulmonary artery. Mediastinal drains are in place. A enteric tube is present with distal tip well below the diaphragm. Bibasilar atelectasis is present. No sizable pleural effusion or pneumothorax. Signed: Robert Montiel MDReport Verified Date/Time: 05/25/2019 19:01:50 Reading Location: [address] Reading Room LACTIC ACID, [id number] 18:38:00 Test Item Value Reference Range Comments LACTATE BLOOD ARTERIAL (2) (BEAKER) (test 2.9 mmol/L 0.5-2.2 duys=2259) Reverse Logistics Analyst ID - MEERA GAN GAS, [id number] 18:05:00 Test Item Value Reference Range Comments PH ARTERIAL (BEAKER) (test moez=000) 7.35 7.35-7.45 PCO2 ARTERIAL (BEAKER) (test owcx=864) 39 mmHg 35-45 PO2 ARTERIAL (BEAKER) (test fdpt=420) 79 mmHg 80-90 O2 SATURATION ARTERIAL (BEAKER) (test oyrs=944) 95.6 % 96.0-97.0 HCO3 ARTERIAL (BEAKER) (test pflh=126) 21 mmol/L 21-29 BASE EXCESS ARTERIAL (BEAKER) (test eapj=733) -4.3 mmol/L -2.0-3.0 PATIENT TEMPERATURE (BEAKER) (test glmp=3071) 36.2 C FIO2 (BEAKER) (test uhgr=3476) 40.0 % CBC W/PLT COUNT & AUTO [id number] 16:55:00 Test Item Value Reference Range Comments WHITE BLOOD CELL COUNT (BEAKER) (test iiyi=085) 12.5 K/ L 3.5-10.5 RED BLOOD CELL COUNT (BEAKER) (test wnpk=908) 3.51 M/ L 4.63-6.08 HEMOGLOBIN (BEAKER) (test dqfh=889) 10.5 GM/DL 13.7-17.5 HEMATOCRIT (BEAKER) (test ztcy=472) 31.6 % 40.1-51.0 MEAN CORPUSCULAR VOLUME (BEAKER) (test rksh=677) 90.0 fL 79.0-92.2 MEAN CORPUSCULAR HEMOGLOBIN (BEAKER) (test 29.9 pg 25.7-32.2 neki=045) MEAN CORPUSCULAR HEMOGLOBIN CONC (BEAKER) (test 33.2 GM/DL 32.3-36.5 hkfk=524) RED CELL DISTRIBUTION WIDTH (BEAKER) (test 14.1 % 11.6-14.4 tgyj=895) PLATELET COUNT (BEAKER) (test jofn=816) 207 K/CU MM 150-450 MEAN PLATELET VOLUME (BEAKER) (test pmup=999) 9.9 fL 9.4-12.4 NUCLEATED RED BLOOD CELLS (BEAKER) (test 0 /100 WBC 0-0 vygv=905) NEUTROPHILS RELATIVE PERCENT (BEAKER) (test 84 % sgjw=242) LYMPHOCYTES RELATIVE PERCENT (BEAKER) (test 6 % fnxm=706) MONOCYTES RELATIVE PERCENT (BEAKER) (test 10 % irwd=060) EOSINOPHILS RELATIVE PERCENT (BEAKER) (test 0 % oauk=438) BASOPHILS RELATIVE PERCENT (BEAKER) (test 0 % pnnf=700) NEUTROPHILS ABSOLUTE COUNT (BEAKER) (test 10.45 K/ L 1.78-5.38 yase=417) LYMPHOCYTES ABSOLUTE COUNT (BEAKER) (test 0.73 K/ L 1.32-3.57 wwpf=304) MONOCYTES ABSOLUTE COUNT (BEAKER) (test 1.19 K/ L 0.30-0.82 hehg=959) EOSINOPHILS ABSOLUTE COUNT (BEAKER) (test 0.04 K/ L 0.04-0.54 wohf=418) BASOPHILS ABSOLUTE COUNT (BEAKER) (test 0.02 K/ L 0.01-0.08 bwei=740) IMMATURE GRANULOCYTES-RELATIVE PERCENT (BEAKER) 0 % 0-1 (test qicu=2624) BLOOD GAS, [id number] 16:41:00 Test Item Value Reference Range Comments PH ARTERIAL (BEAKER) (test qfsx=485) 7.38 7.35-7.45 PCO2 ARTERIAL (BEAKER) (test pziu=200) 31 mmHg 35-45 PO2 ARTERIAL (BEAKER) (test ijkq=848) 107 mmHg 80-90 O2 SATURATION ARTERIAL (BEAKER) (test txcd=427) 98.1 % 96.0-97.0 HCO3 ARTERIAL (BEAKER) (test zwmn=318) 18 mmol/L 21-29 BASE EXCESS ARTERIAL (BEAKER) (test byvk=839) -6.8 mmol/L -2.0-3.0 PATIENT TEMPERATURE (BEAKER) (test cptd=9242) 36.0 C FIO2 (BEAKER) (test ilja=9827) 40.0 % THROMBOELASTOGRAPH (TEG)2019-05-25 15:52:00 Test Item Value Reference Range Comments TEG ACTIVATED CLOTTING TIME (BEAKER) (test 5.4 minutes 4.0-7.0 ntoh=9772) TEG FIBRINOGEN ACTIVITY (BEAKER) (test 66.6 degrees 61.0-73.0 xfyj=6331) TEG PLT. AGGREGATION (BEAKER) (test ssbx=2263) 56.2 MM 55.0-65.0 TEG FIBRINOLYSIS (BEAKER) (test pfma=2357) 0.0 % 0.0-5.0 TGH ACTIVATED CLOTTING TIME (BEAKER) (test 5.8 minutes 4.0-7.0 qlwo=3873) TGH FIBRINOGEN ACTIVITY (BEAKER) (test 70.3 degrees 61.0-73.0 yomp=8721) TGH PLT. AGGREGATION (BEAKER) (test lsmf=5874) 65.8 MM 55.0-65.0 TGH FIBRINOLYSIS (BEAKER) (test bacz=2565) 0.0 % 0.0-5.0 [id number] 13:39:00 Test Item Value Reference Range Comments PHOSPHORUS (BEAKER) (test utpv=930) 3.3 mg/dL 2.3-4.7 Reverse Logistics Analyst ID - [id number] 13:39:00 Test Item Value Reference Range Comments MAGNESIUM (BEAKER) (test qeau=285) 1.7 mg/dL 1.6-2.6 Reverse Logistics Analyst ID - NTPBASIC METABOLIC [id number] 13:39:00 Test Item Value Reference Range Comments SODIUM (BEAKER) (test 136 meq/L 136-145 bilx=675) POTASSIUM (BEAKER) (test 4.6 meq/L 3.5-5.1 iqda=761) CHLORIDE (BEAKER) (test 108 meq/L 98-107 zfwd=646) CO2 (BEAKER) (test 20 meq/L 22-29 jvkh=050) BLOOD UREA NITROGEN 25 mg/dL 7-21 (BEAKER) (test ypqb=852) CREATININE (BEAKER) (test 2.14 mg/dL 0.57-1.25 exnh=696) GLUCOSE RANDOM (BEAKER) 168 mg/dL 70-105 (test tsej=527) CALCIUM (BEAKER) (test 8.3 mg/dL 8.4-10.2 jcnc=935) EGFR (BEAKER) (test 31 mL/min/1.73 sq m ESTIMATED GFR IS NOT saau=5883) ACCURATE CREATININE CLEARANCE IN PREDICTING GLOMERULAR FILTRATION RATE. ESTIMATED GFR IS NOT APPLICABLE FOR DIALYSIS PATIENTS. Reverse Logistics Analyst ID - NTPLACTIC ACID, [id number] 13:30:00 Test Item Value Reference Range Comments LACTATE BLOOD ARTERIAL (2) (BEAKER) (test 1.2 mmol/L 0.5-2.2 ggms=3683) Reverse Logistics Analyst ID - [id number] 13:24:00 Test Item Value Reference Range Comments PARTIAL THROMBOPLASTIN TIME (BEAKER) (test 61.6 seconds 22.5-36.0 kozg=055) CBC W/PLT COUNT & AUTO [id number] 13:23:00 Test Item Value Reference Range Comments WHITE BLOOD CELL COUNT (BEAKER) (test mkjl=427) 10.2 K/ L 3.5-10.5 RED BLOOD CELL COUNT (BEAKER) (test cxxx=777) 3.89 M/ L 4.63-6.08 HEMOGLOBIN (BEAKER) (test rgcz=052) 11.4 GM/DL 13.7-17.5 HEMATOCRIT (BEAKER) (test ynat=258) 34.7 % 40.1-51.0 MEAN CORPUSCULAR VOLUME (BEAKER) (test uwsf=322) 89.2 fL 79.0-92.2 MEAN CORPUSCULAR HEMOGLOBIN (BEAKER) (test 29.3 pg 25.7-32.2 ygvm=544) MEAN CORPUSCULAR HEMOGLOBIN CONC (BEAKER) (test 32.9 GM/DL 32.3-36.5 utun=307) RED CELL DISTRIBUTION WIDTH (BEAKER) (test 14.2 % 11.6-14.4 sxle=286) PLATELET COUNT (BEAKER) (test ygog=704) 176 K/CU MM 150-450 MEAN PLATELET VOLUME (BEAKER) (test qcsz=903) 9.7 fL 9.4-12.4 NUCLEATED RED BLOOD CELLS (BEAKER) (test 0 /100 WBC 0-0 hwam=864) NEUTROPHILS RELATIVE PERCENT (BEAKER) (test 83 % lskv=542) LYMPHOCYTES RELATIVE PERCENT (BEAKER) (test 9 % umer=690) MONOCYTES RELATIVE PERCENT (BEAKER) (test 7 % ifuf=434) EOSINOPHILS RELATIVE PERCENT (BEAKER) (test 1 % yrwp=444) BASOPHILS RELATIVE PERCENT (BEAKER) (test 0 % eyvd=981) NEUTROPHILS ABSOLUTE COUNT (BEAKER) (test 8.45 K/ L 1.78-5.38 lsiq=269) LYMPHOCYTES ABSOLUTE COUNT (BEAKER) (test 0.94 K/ L 1.32-3.57 javl=872) MONOCYTES ABSOLUTE COUNT (BEAKER) (test 0.67 K/ L 0.30-0.82 vcye=857) EOSINOPHILS ABSOLUTE COUNT (BEAKER) (test 0.11 K/ L 0.04-0.54 yqsb=630) BASOPHILS ABSOLUTE COUNT (BEAKER) (test 0.01 K/ L 0.01-0.08 dbmj=969) IMMATURE GRANULOCYTES-RELATIVE PERCENT (BEAKER) 1 % 0-1 (test dxad=1855) PROTHROMBIN [id number] 13:23:00 Test Item Value Reference Range Comments PROTIME (BEAKER) (test ndes=762) 18.8 seconds 11.9-14.2 INR (BEAKER) (test tgtn=337) 1.6 <=5.9 Effective 10/12/2018: PT Reference Range ChangeNew: 11.9-14.2 Previous: 11.7- 14.7RECOMMENDED COUMADIN/WARFARIN INR THERAPY RANGESSTANDARD DOSE: 2.0-3.0 Includes: PROPHYLAXIS for venous thrombosis, systemic embolization; TREATMENT for venous thrombosis and/or pulmonary embolus.HIGH RISK: Target INR is2.5-3.5 for patients wiht mechanical heart valves.[id number] 13:23:00 Test Item Value Reference Range Comments FIBRINOGEN LEVEL (BEAKER) (test qmbn=091) 286 mg/dl 225-434 BLOOD GAS, [id number] 13:12:00 Test Item Value Reference Range Comments PH ARTERIAL (BEAKER) (test xttg=730) 7.36 7.35-7.45 PCO2 ARTERIAL (BEAKER) (test wrqb=206) 36 mmHg 35-45 PO2 ARTERIAL (BEAKER) (test baqz=855) 155 mmHg 80-90 O2 SATURATION ARTERIAL (BEAKER) (test xjfb=933) 99.0 % 96.0-97.0 HCO3 ARTERIAL (BEAKER) (test spbr=032) 20 mmol/L 21-29 BASE EXCESS ARTERIAL (BEAKER) (test xydo=399) -5.0 mmol/L -2.0-3.0 PATIENT TEMPERATURE (BEAKER) (test qmat=9625) 35.9 C FIO2 (BEAKER) (test dvea=3242) 60.0 % CALCIUM, [id number] 13:12:00 Test Item Value Reference Range Comments CALCIUM IONIZED (BEAKER) (test mqwt=219) 1.11 mmol/L 1.12-1.27 PH, BLOOD (BEAKER) (test psaz=8929) 7.34 OXYGEN SATURATION, [id number] 13:09:00 Test Item Value Reference Range Comments O2 SATURATION (MEASURED) (BEAKER) (test egkw=6052) 75.1 % [id number] 12:17:00 Test Item Value Reference Range Comments ACTIVATED CLOTTING TIME 103 sec Reference Range: 74-137 (BEAKER) (test opyz=953) seconds, Baseline/TESTED AT [place] [address] [id number] 12:17:00 Test Item Value Reference Range Comments ACTIVATED CLOTTING TIME 461 sec Reference Range: 74-137 (BEAKER) (test xopr=182) seconds, Baseline/TESTED AT [place] [address] [id number] 12:17:00 Test Item Value Reference Range Comments ACTIVATED CLOTTING TIME 411 sec Reference Range: 74-137 (BEAKER) (test zylf=364) seconds, Baseline/TESTED AT [place] [address] [id number] 12:17:00 Test Item Value Reference Range Comments ACTIVATED CLOTTING TIME 439 sec Reference Range: 74-137 (BEAKER) (test ehft=235) seconds, Baseline/TESTED AT [place] [address] [id number] 12:17:00 Test Item Value Reference Range Comments ACTIVATED CLOTTING TIME 373 sec Reference Range: 74-137 (BEAKER) (test hrdx=102) seconds, Baseline/TESTED AT [place] [address] [id number] 12:17:00 Test Item Value Reference Range Comments ACTIVATED CLOTTING TIME 114 sec Reference Range: 74-137 (BEAKER) (test vyat=193) seconds, Baseline/TESTED AT [facility] [address] [place] [address] CALCIUM, [id number] 12:02:00 Test Item Value Reference Range Comments CALCIUM IONIZED (BEAKER) (test wqnc=457) 1.10 mmol/L 1.12-1.27 PH, BLOOD (BEAKER) (test fufm=3686) 7.36 BLOOD GAS, [id number] 11:48:00 Test Item Value Reference Range Comments PH ARTERIAL (BEAKER) (test mrxe=763) 7.37 7.35-7.45 PCO2 ARTERIAL (BEAKER) (test buah=782) 37 mmHg 35-45 PO2 ARTERIAL (BEAKER) (test rexw=785) 97 mmHg 80-90 O2 SATURATION ARTERIAL (BEAKER) (test xekg=959) 97.5 % 96.0-97.0 HCO3 ARTERIAL (BEAKER) (test utmo=580) 21 mmol/L 21-29 BASE EXCESS ARTERIAL (BEAKER) (test rpae=977) -4.0 mmol/L -2.0-3.0 PATIENT TEMPERATURE (BEAKER) (test mkei=7989) 35.9 C FIO2 (BEAKER) (test mdog=8725) 57.0 % GLUCOSE-STAT [id number] 11:48:00 Test Item Value Reference Range Comments GLUCOSE RANDOM (BEAKER) (test ymqd=521) 165 mg/dL 70-110 HGB/HCT (H&H) - STAT [id number] 11:48:00 Test Item Value Reference Range Comments HEMOGLOBIN (BEAKER) (test ewqr=831) 10.7 g/dL 13.0-16.8 HEMATOCRIT (BEAKER) (test xynx=050) 31.0 % 40.0-50.0 SODIUM NA-STAT [id number] 11:47:00 Test Item Value Reference Range Comments SODIUM (BEAKER) (test xyln=881) 135 meq/L 135-148 POTASSIUM-STAT [id number] 11:47:00 Test Item Value Reference Range Comments POTASSIUM (BEAKER) (test sfas=797) 4.3 meq/L 3.6-5.5 BLOOD GAS, [id number] 10:43:00 Test Item Value Reference Range Comments PH ARTERIAL (BEAKER) (test fpxn=903) 7.34 7.35-7.45 PCO2 ARTERIAL (BEAKER) (test awyq=739) 48 mmHg 35-45 PO2 ARTERIAL (BEAKER) (test xyay=211) 308 mmHg 80-90 O2 SATURATION ARTERIAL (BEAKER) (test qyaf=964) 99.7 % 96.0-97.0 HCO3 ARTERIAL (BEAKER) (test kuik=011) 26 mmol/L 21-29 BASE EXCESS ARTERIAL (BEAKER) (test jejj=218) -0.9 mmol/L -2.0-3.0 PATIENT TEMPERATURE (BEAKER) (test zmvs=7383) 34.2 C FIO2 (BEAKER) (test hrtl=3503) 70.0 % SODIUM NA-STAT [id number] 10:43:00 Test Item Value Reference Range Comments SODIUM (BEAKER) (test yfbv=836) 134 meq/L 135-148 GLUCOSE-STAT [id number] 10:43:00 Test Item Value Reference Range Comments GLUCOSE RANDOM (BEAKER) (test isyp=290) 162 mg/dL 70-110 HGB/HCT (H&H) - STAT [id number] 10:43:00 Test Item Value Reference Range Comments HEMOGLOBIN (BEAKER) (test kkro=628) 10.1 g/dL 13.0-16.8 HEMATOCRIT (BEAKER) (test bsuz=005) 30.0 % 40.0-50.0 POTASSIUM-STAT [id number] 10:42:00 Test Item Value Reference Range Comments POTASSIUM (BEAKER) (test uhaa=537) 5.0 meq/L 3.6-5.5 BLOOD GAS, [id number] 10:22:00 Test Item Value Reference Range Comments PH ARTERIAL (BEAKER) (test ceha=062) 7.36 7.35-7.45 PCO2 ARTERIAL (BEAKER) (test piho=505) 34 mmHg 35-45 PO2 ARTERIAL (BEAKER) (test vkeh=144) 405 mmHg 80-90 O2 SATURATION ARTERIAL (BEAKER) (test tkyq=028) 99.8 % 96.0-97.0 HCO3 ARTERIAL (BEAKER) (test ctar=361) 20 mmol/L 21-29 BASE EXCESS ARTERIAL (BEAKER) (test lvgy=120) -6.2 mmol/L -2.0-3.0 PATIENT TEMPERATURE (BEAKER) (test juqn=8000) 32.6 C FIO2 (BEAKER) (test quij=0385) 80.0 % SODIUM NA-STAT [id number] 10:22:00 Test Item Value Reference Range Comments SODIUM (BEAKER) (test nplh=278) 126 meq/L 135-148 POTASSIUM-STAT [id number] 10:22:00 Test Item Value Reference Range Comments POTASSIUM (BEAKER) (test slrw=397) 5.7 meq/L 3.6-5.5 GLUCOSE-STAT [id number] 10:22:00 Test Item Value Reference Range Comments GLUCOSE RANDOM (BEAKER) (test eqcy=801) 191 mg/dL 70-110 HGB/HCT (H&H) - STAT [id number] 10:22:00 Test Item Value Reference Range Comments HEMOGLOBIN (BEAKER) (test hezz=357) 10.1 g/dL 13.0-16.8 HEMATOCRIT (BEAKER) (test jkqb=951) 30.0 % 40.0-50.0 GLUCOSE-STAT [id number] 09:50:00 Test Item Value Reference Range Comments GLUCOSE RANDOM (BEAKER) (test kron=778) 139 mg/dL 70-110 SODIUM NA-STAT [id number] 09:50:00 Test Item Value Reference Range Comments SODIUM (BEAKER) (test jyel=022) 131 meq/L 135-148 HGB/HCT (H&H) - STAT [id number] 09:50:00 Test Item Value Reference Range Comments HEMOGLOBIN (BEAKER) (test axic=964) 13.3 g/dL 13.0-16.8 HEMATOCRIT (BEAKER) (test aobg=008) 39.0 % 40.0-50.0 CALCIUM, [id number] 09:49:00 Test Item Value Reference Range Comments CALCIUM IONIZED (BEAKER) (test ktip=603) 1.18 mmol/L 1.12-1.27 PH, BLOOD (BEAKER) (test mlwt=0308) 7.32 BLOOD GAS, [id number] 09:49:00 Test Item Value Reference Range Comments PH ARTERIAL (BEAKER) (test xpmr=969) 7.34 7.35-7.45 PCO2 ARTERIAL (BEAKER) (test dgzo=585) 39 mmHg 35-45 PO2 ARTERIAL (BEAKER) (test fkih=304) 221 mmHg 80-90 O2 SATURATION ARTERIAL (BEAKER) (test qupi=461) 99.4 % 96.0-97.0 HCO3 ARTERIAL (BEAKER) (test qdft=116) 21 mmol/L 21-29 BASE EXCESS ARTERIAL (BEAKER) (test wfel=809) -4.9 mmol/L -2.0-3.0 PATIENT TEMPERATURE (BEAKER) (test kmht=4733) 35.5 C FIO2 (BEAKER) (test oiyi=4376) 51.0 % POTASSIUM-STAT [id number] 09:48:00 Test Item Value Reference Range Comments POTASSIUM (BEAKER) (test ffwj=392) 4.9 meq/L 3.6-5.5 PLATELET AGGREGATION: FUNCTION [id number] 09:44:00 Test Item Value Reference Range Comments [id number] (BEAKER) Ashlie Shoemaker MD (test ifhl=5872) (electronic signature) PLATELET COUNT AGG (BEAKER) 252 K/CU MM 150-450 (test ikys=1339) PLATELET RICH PLASMA(BEAKER) 255 k/cu mm 200-300 (test juhk=8089) PLATELET FUNCTION SCREEN Decreased aggregation with INTERPRETATION (BEAKER) (test ADP which indicates platelet yqvy=9326) dysfunction that may be due to medication effect, uremia, or other platelet function disorders. Clinical correlation is required. Platelet Function Screen results may be falsely low with platelet counts<75, 000/cu mm.BLOOD GAS, [id number] 08:35:00 Test Item Value Reference Range Comments PH ARTERIAL (BEAKER) (test bqwu=947) 7.35 7.35-7.45 PCO2 ARTERIAL (BEAKER) (test exhb=377) 42 mmHg 35-45 PO2 ARTERIAL (BEAKER) (test twpm=907) 249 mmHg 80-90 O2 SATURATION ARTERIAL (BEAKER) (test vibr=050) 99.5 % 96.0-97.0 HCO3 ARTERIAL (BEAKER) (test plgq=085) 23 mmol/L 21-29 BASE EXCESS ARTERIAL (BEAKER) (test yelx=087) -3.1 mmol/L -2.0-3.0 PATIENT TEMPERATURE (BEAKER) (test wunt=1240) 36.2 C FIO2 (BEAKER) (test emlo=0076) 100.0 % SODIUM NA-STAT [id number] 08:35:00 Test Item Value Reference Range Comments SODIUM (BEAKER) (test ppjb=357) 131 meq/L 135-148 GLUCOSE-STAT [id number] 08:35:00 Test Item Value Reference Range Comments GLUCOSE RANDOM (BEAKER) (test kvtb=585) 112 mg/dL 70-110 CALCIUM, [id number] 08:34:00 Test Item Value Reference Range Comments CALCIUM IONIZED (BEAKER) (test snvi=996) 1.19 mmol/L 1.12-1.27 PH, BLOOD (BEAKER) (test bojb=9398) 7.33 POTASSIUM-STAT [id number] 08:33:00 Test Item Value Reference Range Comments POTASSIUM (BEAKER) (test egvt=194) 4.2 meq/L 3.6-5.5 HGB/HCT (H&H) - STAT [id number] 08:33:00 Test Item Value Reference Range Comments HEMOGLOBIN (BEAKER) (test rzdx=581) 13.5 g/dL 13.0-16.8 HEMATOCRIT (BEAKER) (test alwk=897) 40.0 % 40.0-50.0 CALCIUM, [id number] 05:20:00 Test Item Value Reference Range Comments CALCIUM IONIZED (BEAKER) (test nzmy=873) 1.20 mmol/L 1.12-1.27 PH, BLOOD (BEAKER) (test fekv=0451) 7.44 BASIC METABOLIC [id number] 05:16:00 Test Item Value Reference Range Comments SODIUM (BEAKER) (test 132 meq/L 136-145 jvne=164) POTASSIUM (BEAKER) (test 4.3 meq/L 3.5-5.1 orsn=877) CHLORIDE (BEAKER) (test 105 meq/L 98-107 ujlh=672) CO2 (BEAKER) (test 20 meq/L 22-29 reax=075) BLOOD UREA NITROGEN 29 mg/dL 7-21 (BEAKER) (test epqf=613) CREATININE (BEAKER) (test 2.41 mg/dL 0.57-1.25 gslq=372) GLUCOSE RANDOM (BEAKER) 103 mg/dL 70-105 (test wcqp=714) CALCIUM (BEAKER) (test 9.1 mg/dL 8.4-10.2 xczp=136) EGFR (BEAKER) (test 27 mL/min/1.73 sq m ESTIMATED GFR IS NOT pyzb=8306) ACCURATE CREATININE CLEARANCE IN PREDICTING GLOMERULAR FILTRATION RATE. ESTIMATED GFR IS NOT APPLICABLE FOR DIALYSIS PATIENTS. URIC [id number] 05:15:00 Test Item Value Reference Range Comments URIC ACID (BEAKER) (test bcxw=867) 8.3 mg/dL 2.6-7.2 [id number] 05:15:00 Test Item Value Reference Range Comments MAGNESIUM (BEAKER) (test ielq=499) 1.9 mg/dL 1.6-2.6 [id number] 05:15:00 Test Item Value Reference Range Comments PHOSPHORUS (BEAKER) (test dcqp=700) 3.7 mg/dL 2.3-4.7 PTH, [id number] 05:06:00 Test Item Value Reference Range Comments PARATHYROID HORMONE INTACT (BEAKER) (test 64.0 pg/mL 8.5-72.5 kqaj=260) CBC W/PLT COUNT & AUTO [id number] 04:46:00 Test Item Value Reference Range Comments WHITE BLOOD CELL COUNT (BEAKER) (test lxvs=688) 5.4 K/ L 3.5-10.5 RED BLOOD CELL COUNT (BEAKER) (test eech=456) 4.43 M/ L 4.63-6.08 HEMOGLOBIN (BEAKER) (test ngjm=894) 13.0 GM/DL 13.7-17.5 HEMATOCRIT (BEAKER) (test yriy=067) 39.3 % 40.1-51.0 MEAN CORPUSCULAR VOLUME (BEAKER) (test awgp=285) 88.7 fL 79.0-92.2 MEAN CORPUSCULAR HEMOGLOBIN (BEAKER) (test 29.3 pg 25.7-32.2 eykv=643) MEAN CORPUSCULAR HEMOGLOBIN CONC (BEAKER) (test 33.1 GM/DL 32.3-36.5 vdzd=852) RED CELL DISTRIBUTION WIDTH (BEAKER) (test 13.9 % 11.6-14.4 vblt=522) PLATELET COUNT (BEAKER) (test ybeg=447) 247 K/CU MM 150-450 MEAN PLATELET VOLUME (BEAKER) (test ziei=312) 9.5 fL 9.4-12.4 NUCLEATED RED BLOOD CELLS (BEAKER) (test 0 /100 WBC 0-0 lail=350) NEUTROPHILS RELATIVE PERCENT (BEAKER) (test 59 % cdto=779) LYMPHOCYTES RELATIVE PERCENT (BEAKER) (test 24 % iqhg=646) MONOCYTES RELATIVE PERCENT (BEAKER) (test 11 % swnp=359) EOSINOPHILS RELATIVE PERCENT (BEAKER) (test 5 % fhzv=898) BASOPHILS RELATIVE PERCENT (BEAKER) (test 1 % kivh=506) NEUTROPHILS ABSOLUTE COUNT (BEAKER) (test 3.21 K/ L 1.78-5.38 snum=025) LYMPHOCYTES ABSOLUTE COUNT (BEAKER) (test 1.30 K/ L 1.32-3.57 zxpf=751) MONOCYTES ABSOLUTE COUNT (BEAKER) (test 0.59 K/ L 0.30-0.82 lcgl=886) EOSINOPHILS ABSOLUTE COUNT (BEAKER) (test 0.27 K/ L 0.04-0.54 cfja=511) BASOPHILS ABSOLUTE COUNT (BEAKER) (test 0.03 K/ L 0.01-0.08 nszl=621) IMMATURE GRANULOCYTES-RELATIVE PERCENT (BEAKER) 0 % 0-1 (test ztae=9425) [id number] 21:48:00 Test Item Value Reference Range Comments PARTIAL THROMBOPLASTIN TIME (BEAKER) (test 63.1 seconds 22.5-36.0 lwvr=293) PROTHROMBIN [id number] 21:47:00 Test Item Value Reference Range Comments PROTIME (BEAKER) (test ezut=727) 15.2 seconds 11.9-14.2 INR (BEAKER) (test aatv=482) 1.2 <=5.9 Effective 10/12/2018: PT Reference Range ChangeNew: 11.9-14.2 Previous: 11.7- 14.7RECOMMENDED COUMADIN/WARFARIN INR THERAPY RANGESSTANDARD DOSE: 2.0-3.0 Includes: PROPHYLAXIS for venous thrombosis, systemic embolization; TREATMENT for venous thrombosis and/or pulmonary embolus.HIGH RISK: Target INR is2.5-3.5 for patients wiht mechanical heart valves.CREATININE, RANDOM [id number] 19: 14:00 Test Item Value Reference Range Comments CREATININE URINE (BEAKER) (test ehzz=648) 119.9 mg/dL Reference Range: No NormalsPROTEIN, RANDOM [id number] 19:14:00 Test Item Value Reference Range Comments PROTEIN, URINE (BEAKER) (test semz=6535) 37 mg/dL 0-14 PLATELET AGGREGATION: FUNCTION [id number] 19:04:00 Test Item Value Reference Range Comments [id number] (BEAKER) Ashlie Shoemaker MD (test jezw=5974) (electronic signature) PLATELET COUNT AGG (BEAKER) 251 K/CU MM 150-450 (test urdq=9367) PLATELET RICH PLASMA(BEAKER) 243 k/cu mm 200-300 (test erlm=7355) PLATELET FUNCTION SCREEN Decreased aggregation with INTERPRETATION (BEAKER) (test ADP which indicates platelet wjsw=4679) dysfunction that may be due to medication effect, uremia, or other platelet function disorders. Clinical correlation is required. Platelet Function Screen results may be falsely low with platelet counts<75, 000/cu mm.PLATELET AGGREGATION: FUNCTION [id number] 19:03:00 Test Item Value Reference Range Comments [id number] (BEAKER) Ashlie Shoemakre MD (test bbgw=4513) (electronic signature) PLATELET COUNT AGG (BEAKER) 283 K/CU MM 150-450 (test jemy=0682) PLATELET RICH PLASMA(BEAKER) 294 k/cu mm 200-300 (test uqdz=1912) PLATELET FUNCTION SCREEN Decreased aggregation with INTERPRETATION (BEAKER) (test ADP which indicates platelet sjev=0837) dysfunction that may be due to medication effect, uremia, or other platelet function disorders. Clinical correlation is required. Platelet Function Screen results may be falsely low with platelet counts<75, 000/cu mm.U/S, RENAL WITH [id number] 17:06:00Reason for exam:->ckd with doppler-attn size and [...] Martinez Verified Date/Time: 05/24/2019 17:06:43 Reading Location: [address] Radiology Reading Room 05: 06 [id number] 15:00:00 Test Item Value Reference Range Comments PARTIAL THROMBOPLASTIN TIME (BEAKER) (test 66.3 seconds 22.5-36.0 clqh=181) RAD, CHEST, 1 VIEW, NON [id number] 10:47:00Reason for exam:->sobShould this be performed at the bedside?->YesFINAL REPORT INDICATION: sob COMPARISON: September 01, 2003 TECHNIQUE: Single frontal view of the chest. FINDINGS: Lungs and pleura: Clear lungs. No effusion.Heart and mediastinum: Normal heart size. Unremarkable mediastinal contours.Osseous structures: No acute abnormality.Other: None. IMPRESSION: No acute intrathoracic abnormality. Signed: Marcella Burdick Verified Date/Time: 05/24/2019 10:47:42 Reading Location: [facility] Radiology Reading Room BASIC METABOLIC [id number] 07:45:00 Test Item Value Reference Range Comments SODIUM (BEAKER) (test 134 meq/L 136-145 rwpa=464) POTASSIUM (BEAKER) (test 4.9 meq/L 3.5-5.1 kukw=637) CHLORIDE (BEAKER) (test 105 meq/L 98-107 xfkw=160) CO2 (BEAKER) (test 22 meq/L 22-29 flhf=007) BLOOD UREA NITROGEN 28 mg/dL 7-21 (BEAKER) (test opjl=826) CREATININE (BEAKER) (test 2.34 mg/dL 0.57-1.25 wlgq=168) GLUCOSE RANDOM (BEAKER) 100 mg/dL 70-105 (test igmr=860) CALCIUM (BEAKER) (test 9.3 mg/dL 8.4-10.2 aqst=386) EGFR (BEAKER) (test 28 mL/min/1.73 sq m ESTIMATED GFR IS NOT dspu=2948) ACCURATE CREATININE CLEARANCE IN PREDICTING GLOMERULAR FILTRATION RATE. ESTIMATED GFR IS NOT APPLICABLE FOR DIALYSIS PATIENTS. HEPATIC FUNCTION [id number] 07:06:00 Test Item Value Reference Range Comments TOTAL PROTEIN (BEAKER) (test ijdb=268) 7.2 gm/dL 6.0-8.3 ALBUMIN (BEAKER) (test whno=7914) 3.8 g/dL 3.5-5.0 BILIRUBIN TOTAL (BEAKER) (test nilz=272) 0.7 mg/dL 0.2-1.2 BILIRUBIN DIRECT (BEAKER) (test ctsr=427) 0.4 mg/dL 0.1-0.5 ALKALINE PHOSPHATASE (BEAKER) (test ufkx=011) 16 U/L 40-150 AST (SGOT) (BEAKER) (test cihl=566) 18 U/L 5-34 ALT (SGPT) (BEAKER) (test iuaw=931) 16 U/L 6-55 [id number] 07:01:00 Test Item Value Reference Range Comments PHOSPHORUS (BEAKER) (test luvs=060) 3.9 mg/dL 2.3-4.7 [id number] 07:01:00 Test Item Value Reference Range Comments MAGNESIUM (BEAKER) (test zdoa=683) 1.8 mg/dL 1.6-2.6 LACTIC ACID, [id number] 06:33:00 Test Item Value Reference Range Comments LACTATE BLOOD ARTERIAL (2) (BEAKER) (test 1.2 mmol/L 0.5-2.2 pfvj=4570) [id number] 06:29:00 Test Item Value Reference Range Comments PARTIAL THROMBOPLASTIN TIME (BEAKER) (test 52.7 seconds 22.5-36.0 avlg=062) CBC W/PLT COUNT & AUTO [id number] 06:24:00 Test Item Value Reference Range Comments WHITE BLOOD CELL COUNT (BEAKER) (test pvca=683) 6.0 K/ L 3.5-10.5 RED BLOOD CELL COUNT (BEAKER) (test uyhz=369) 4.96 M/ L 4.63-6.08 HEMOGLOBIN (BEAKER) (test ywtp=743) 14.8 GM/DL 13.7-17.5 HEMATOCRIT (BEAKER) (test ldvt=841) 44.7 % 40.1-51.0 MEAN CORPUSCULAR VOLUME (BEAKER) (test wvwl=149) 90.1 fL 79.0-92.2 MEAN CORPUSCULAR HEMOGLOBIN (BEAKER) (test 29.8 pg 25.7-32.2 epyi=839) MEAN CORPUSCULAR HEMOGLOBIN CONC (BEAKER) (test 33.1 GM/DL 32.3-36.5 zpsg=892) RED CELL DISTRIBUTION WIDTH (BEAKER) (test 13.9 % 11.6-14.4 yckz=318) PLATELET COUNT (BEAKER) (test qslc=294) 248 K/CU MM 150-450 MEAN PLATELET VOLUME (BEAKER) (test rjsq=603) 10.0 fL 9.4-12.4 NUCLEATED RED BLOOD CELLS (BEAKER) (test 0 /100 WBC 0-0 fjaq=856) NEUTROPHILS RELATIVE PERCENT (BEAKER) (test 59 % jarb=460) LYMPHOCYTES RELATIVE PERCENT (BEAKER) (test 25 % czsd=854) MONOCYTES RELATIVE PERCENT (BEAKER) (test 11 % hhsk=906) EOSINOPHILS RELATIVE PERCENT (BEAKER) (test 4 % ypsr=230) BASOPHILS RELATIVE PERCENT (BEAKER) (test 1 % prke=946) NEUTROPHILS ABSOLUTE COUNT (BEAKER) (test 3.55 K/ L 1.78-5.38 brlt=841) LYMPHOCYTES ABSOLUTE COUNT (BEAKER) (test 1.52 K/ L 1.32-3.57 qhev=339) MONOCYTES ABSOLUTE COUNT (BEAKER) (test 0.63 K/ L 0.30-0.82 jknq=614) EOSINOPHILS ABSOLUTE COUNT (BEAKER) (test 0.23 K/ L 0.04-0.54 xpwd=593) BASOPHILS ABSOLUTE COUNT (BEAKER) (test 0.04 K/ L 0.01-0.08 pxnr=929) IMMATURE GRANULOCYTES-RELATIVE PERCENT (BEAKER) 0 % 0-1 (test subs=3995) CALCIUM, [id number] 06:17:00 Test Item Value Reference Range Comments CALCIUM IONIZED (BEAKER) (test hpxh=513) 1.23 mmol/L 1.12-1.27 PH, BLOOD (BEAKER) (test fzfs=3115) 7.40 [id number] 00:32:00 Test Item Value Reference Range Comments PARTIAL THROMBOPLASTIN TIME (BEAKER) (test 42.1 seconds 22.5-36.0 fqvm=841) HEMOGLOBIN [id number] 17:23:00 Test Item Value Reference Range Comments HEMOGLOBIN A1C (BEAKER) (test igas=958) 5.7 % 4.3-6.1 THROMBOELASTOGRAPH (TEG)[id number] 16:08:00 Test Item Value Reference Range Comments TEG ACTIVATED CLOTTING TIME (BEAKER) (test 3.9 minutes 4.0-7.0 nmfp=7703) TEG FIBRINOGEN ACTIVITY (BEAKER) (test 71.9 degrees 61.0-73.0 buue=8630) TEG PLT. AGGREGATION (BEAKER) (test yjss=0314) 69.9 MM 55.0-65.0 TEG FIBRINOLYSIS (BEAKER) (test fdso=3055) 0.0 % 0.0-5.0 TGH ACTIVATED CLOTTING TIME (BEAKER) (test 4.3 minutes 4.0-7.0 wxee=5566) TGH FIBRINOGEN ACTIVITY (BEAKER) (test 72.2 degrees 61.0-73.0 uqoa=7992) TGH PLT. AGGREGATION (BEAKER) (test msrw=2219) 73.4 MM 55.0-65.0 TGH FIBRINOLYSIS (BEAKER) (test zzkf=0808) 1.7 % 0.0-5.0 TSH/FREE T4 IF [id number] 15:55:00 Test Item Value Reference Range Comments THYROID STIMULATING HORMONE (BEAKER) (test 1.69 uIU/mL 0.35-4.94 mqnd=867) B-TYPE NATRIURETIC FACTOR (BNP)2019-05-23 15:41:00 Test Item Value Reference Range Comments B-TYPE NATRIURETIC PEPTIDE (BEAKER) (test 1951 pg/mL 0-100 selb=185) [id number] 15:34:00 Test Item Value Reference Range Comments PHOSPHORUS (BEAKER) (test pzvo=005) 3.4 mg/dL 2.3-4.7 [id number] 15:34:00 Test Item Value Reference Range Comments MAGNESIUM (BEAKER) (test tvzh=748) 1.9 mg/dL 1.6-2.6 BASIC METABOLIC [id number] 15:34:00 Test Item Value Reference Range Comments SODIUM (BEAKER) (test 133 meq/L 136-145 opfm=629) POTASSIUM (BEAKER) (test 4.5 meq/L 3.5-5.1 qvjn=700) CHLORIDE (BEAKER) (test 104 meq/L 98-107 fork=567) CO2 (BEAKER) (test 18 meq/L 22-29 upej=867) BLOOD UREA NITROGEN 21 mg/dL 7-21 (BEAKER) (test iwwn=993) CREATININE (BEAKER) (test 2.09 mg/dL 0.57-1.25 tspq=377) GLUCOSE RANDOM (BEAKER) 88 mg/dL 70-105 (test xnez=882) CALCIUM (BEAKER) (test 9.5 mg/dL 8.4-10.2 aagh=425) EGFR (BEAKER) (test 31 mL/min/1.73 sq m ESTIMATED GFR IS NOT wuhc=0777) ACCURATE CREATININE CLEARANCE IN PREDICTING GLOMERULAR FILTRATION RATE. ESTIMATED GFR IS NOT APPLICABLE FOR DIALYSIS PATIENTS. HEPATIC FUNCTION [id number] 15:34:00 Test Item Value Reference Range Comments TOTAL PROTEIN (BEAKER) (test rakt=640) 7.2 gm/dL 6.0-8.3 ALBUMIN (BEAKER) (test nwab=1476) 3.8 g/dL 3.5-5.0 BILIRUBIN TOTAL (BEAKER) (test jeut=642) 0.9 mg/dL 0.2-1.2 BILIRUBIN DIRECT (BEAKER) (test oxvy=545) 0.5 mg/dL 0.1-0.5 ALKALINE PHOSPHATASE (BEAKER) (test kcrz=490) 133 U/L 40-150 AST (SGOT) (BEAKER) (test udwf=013) 18 U/L 5-34 ALT (SGPT) (BEAKER) (test nhpl=925) 16 U/L 6-55 [id number] 15:20:00 Test Item Value Reference Range Comments PARTIAL THROMBOPLASTIN TIME (BEAKER) (test 33.3 seconds 22.5-36.0 hayo=900) PROTHROMBIN [id number] 15:19:00 Test Item Value Reference Range Comments PROTIME (BEAKER) (test mdwb=448) 14.8 seconds 11.9-14.2 INR (BEAKER) (test fbnf=878) 1.2 <=5.9 Effective 10/12/2018: PT Reference Range ChangeNew: 11.9-14.2 Previous: 11.7- 14.7RECOMMENDED COUMADIN/WARFARIN INR THERAPY RANGESSTANDARD DOSE: 2.0-3.0 Includes: PROPHYLAXIS for venous thrombosis, systemic embolization; TREATMENT for venous thrombosis and/or pulmonary embolus.HIGH RISK: Target INR is2.5-3.5 for patients wiht mechanical heart valves.LACTIC ACID, [id number] 15:19: 00 Test Item Value Reference Range Comments LACTATE BLOOD ARTERIAL (2) 0.9 mmol/L 0.5-2.2 Specimen slightly hemolyzed (BEAKER) (test rowd=2364) [id number] 15:19:00 Test Item Value Reference Range Comments FIBRINOGEN LEVEL (BEAKER) (test wtuw=211) 463 mg/dl 225-434 PLATELET [id number] 15:06:00 Test Item Value Reference Range Comments PLATELET COUNT (BEAKER) (test teoy=468) 281 K/CU MM 150-450 CBC W/PLT COUNT & AUTO [id number] 15:06:00 Test Item Value Reference Range Comments WHITE BLOOD CELL COUNT (BEAKER) (test binj=096) 5.4 K/ L 3.5-10.5 RED BLOOD CELL COUNT (BEAKER) (test igty=383) 4.82 M/ L 4.63-6.08 HEMOGLOBIN (BEAKER) (test tszc=679) 14.3 GM/DL 13.7-17.5 HEMATOCRIT (BEAKER) (test olmp=442) 42.6 % 40.1-51.0 MEAN CORPUSCULAR VOLUME (BEAKER) (test tyxp=392) 88.4 fL 79.0-92.2 MEAN CORPUSCULAR HEMOGLOBIN (BEAKER) (test 29.7 pg 25.7-32.2 utmu=691) MEAN CORPUSCULAR HEMOGLOBIN CONC (BEAKER) (test 33.6 GM/DL 32.3-36.5 ldgq=051) RED CELL DISTRIBUTION WIDTH (BEAKER) (test 14.0 % 11.6-14.4 usal=361) PLATELET COUNT (BEAKER) (test gxyl=839) 281 K/CU MM 150-450 MEAN PLATELET VOLUME (BEAKER) (test pfqy=242) 9.8 fL 9.4-12.4 NUCLEATED RED BLOOD CELLS (BEAKER) (test 0 /100 WBC 0-0 tcew=360) NEUTROPHILS RELATIVE PERCENT (BEAKER) (test 67 % sloq=386) LYMPHOCYTES RELATIVE PERCENT (BEAKER) (test 20 % qulj=001) MONOCYTES RELATIVE PERCENT (BEAKER) (test 10 % hnba=700) EOSINOPHILS RELATIVE PERCENT (BEAKER) (test 2 % ujrc=681) BASOPHILS RELATIVE PERCENT (BEAKER) (test 0 % wqqa=691) NEUTROPHILS ABSOLUTE COUNT (BEAKER) (test 3.63 K/ L 1.78-5.38 ukbc=594) LYMPHOCYTES ABSOLUTE COUNT (BEAKER) (test 1.07 K/ L 1.32-3.57 nikz=865) MONOCYTES ABSOLUTE COUNT (BEAKER) (test 0.56 K/ L 0.30-0.82 owdl=625) EOSINOPHILS ABSOLUTE COUNT (BEAKER) (test 0.13 K/ L 0.04-0.54 gzah=395) BASOPHILS ABSOLUTE COUNT (BEAKER) (test 0.02 K/ L 0.01-0.08 xswc=814) IMMATURE GRANULOCYTES-RELATIVE PERCENT (BEAKER) 0 % 0-1 (test nfnz=3256) CALCIUM, [id number] 14:58:00 Test Item Value Reference Range Comments CALCIUM IONIZED (BEAKER) (test rpjz=089) 1.23 mmol/L 1.12-1.27 PH, BLOOD (BEAKER) (test pjaa=2384) 7.42 CBC (HEMOGRAM ONLY)2019-05-14 04:11:00 Test Item Value Reference Range Comments WHITE BLOOD CELL COUNT (BEAKER) (test vqqi=204) 5.4 K/ L 3.5-10.5 RED BLOOD CELL COUNT (BEAKER) (test vnpa=744) 4.72 M/ L 4.63-6.08 HEMOGLOBIN (BEAKER) (test lmfm=642) 13.9 GM/DL 13.7-17.5 HEMATOCRIT (BEAKER) (test lmyo=738) 41.7 % 40.1-51.0 MEAN CORPUSCULAR VOLUME (BEAKER) (test gdva=960) 88.3 fL 79.0-92.2 MEAN CORPUSCULAR HEMOGLOBIN (BEAKER) (test 29.4 pg 25.7-32.2 ohlc=554) MEAN CORPUSCULAR HEMOGLOBIN CONC (BEAKER) (test 33.3 GM/DL 32.3-36.5 ppgb=370) RED CELL DISTRIBUTION WIDTH (BEAKER) (test 13.7 % 11.6-14.4 zkai=579) PLATELET COUNT (BEAKER) (test mpxt=126) 252 K/CU MM 150-450 MEAN PLATELET VOLUME (BEAKER) (test ayye=071) 9.9 fL 9.4-12.4 NUCLEATED RED BLOOD CELLS (BEAKER) (test 0 /100 WBC 0-0 dqni=454) [id number] 06:10:00 Test Item Value Reference Range Comments MAGNESIUM (BEAKER) (test hnoj=696) 2.0 mg/dL 1.6-2.6 BASIC METABOLIC [id number] 06:10:00 Test Item Value Reference Range Comments SODIUM (BEAKER) (test 134 meq/L 136-145 ulmw=432) POTASSIUM (BEAKER) (test 4.4 meq/L 3.5-5.1 wvkb=330) CHLORIDE (BEAKER) (test 107 meq/L 98-107 cqmm=959) CO2 (BEAKER) (test 19 meq/L 22-29 ntwa=447) BLOOD UREA NITROGEN 27 mg/dL 7-21 (BEAKER) (test jagb=106) CREATININE (BEAKER) (test 1.94 mg/dL 0.57-1.25 ulks=308) GLUCOSE RANDOM (BEAKER) 94 mg/dL 70-105 (test rhdg=740) CALCIUM (BEAKER) (test 9.2 mg/dL 8.4-10.2 zbga=156) EGFR (BEAKER) (test 34 mL/min/1.73 sq m ESTIMATED GFR IS NOT lxma=1070) ACCURATE CREATININE CLEARANCE IN PREDICTING GLOMERULAR FILTRATION RATE. ESTIMATED GFR IS NOT APPLICABLE FOR DIALYSIS PATIENTS. CBC (HEMOGRAM ONLY)2019-05-13 05:22:00 Test Item Value Reference Range Comments WHITE BLOOD CELL COUNT (BEAKER) (test scne=828) 5.2 K/ L 3.5-10.5 RED BLOOD CELL COUNT (BEAKER) (test xjrk=046) 4.72 M/ L 4.63-6.08 HEMOGLOBIN (BEAKER) (test hksc=605) 13.7 GM/DL 13.7-17.5 HEMATOCRIT (BEAKER) (test idrp=892) 41.7 % 40.1-51.0 MEAN CORPUSCULAR VOLUME (BEAKER) (test qlye=036) 88.3 fL 79.0-92.2 MEAN CORPUSCULAR HEMOGLOBIN (BEAKER) (test 29.0 pg 25.7-32.2 amix=310) MEAN CORPUSCULAR HEMOGLOBIN CONC (BEAKER) (test 32.9 GM/DL 32.3-36.5 hffk=761) RED CELL DISTRIBUTION WIDTH (BEAKER) (test 13.7 % 11.6-14.4 lsmu=546) PLATELET COUNT (BEAKER) (test ddwu=648) 239 K/CU MM 150-450 MEAN PLATELET VOLUME (BEAKER) (test tssx=192) 9.7 fL 9.4-12.4 NUCLEATED RED BLOOD CELLS (BEAKER) (test 0 /100 WBC 0-0 oytn=697) [id number] 12:42:00 Test Item Value Reference Range Comments PARTIAL THROMBOPLASTIN TIME (BEAKER) (test 82.0 seconds 22.5-36.0 warh=716) [id number] 05:57:00 Test Item Value Reference Range Comments MAGNESIUM (BEAKER) (test hjvo=411) 2.2 mg/dL 1.6-2.6 BASIC METABOLIC [id number] 05:57:00 Test Item Value Reference Range Comments SODIUM (BEAKER) (test 136 meq/L 136-145 fgdj=087) POTASSIUM (BEAKER) (test 4.4 meq/L 3.5-5.1 ezwd=897) CHLORIDE (BEAKER) (test 106 meq/L 98-107 mcoi=108) CO2 (BEAKER) (test 20 meq/L 22-29 cmlc=241) BLOOD UREA NITROGEN 30 mg/dL 7-21 (BEAKER) (test xuqu=109) CREATININE (BEAKER) (test 2.13 mg/dL 0.57-1.25 lrhy=430) GLUCOSE RANDOM (BEAKER) 100 mg/dL 70-105 (test xctt=225) CALCIUM (BEAKER) (test 8.9 mg/dL 8.4-10.2 hzzn=872) EGFR (BEAKER) (test 31 mL/min/1.73 sq m ESTIMATED GFR IS NOT uaux=9406) ACCURATE CREATININE CLEARANCE IN PREDICTING GLOMERULAR FILTRATION RATE. ESTIMATED GFR IS NOT APPLICABLE FOR DIALYSIS PATIENTS. [id number] 05:48:00 Test Item Value Reference Range Comments PARTIAL THROMBOPLASTIN TIME (BEAKER) (test 97.6 seconds 22.5-36.0 geua=339) CBC (HEMOGRAM ONLY)2019-05-12 05:37:00 Test Item Value Reference Range Comments WHITE BLOOD CELL COUNT (BEAKER) (test rkov=203) 5.6 K/ L 3.5-10.5 RED BLOOD CELL COUNT (BEAKER) (test qesm=989) 4.46 M/ L 4.63-6.08 HEMOGLOBIN (BEAKER) (test dbpc=241) 13.0 GM/DL 13.7-17.5 HEMATOCRIT (BEAKER) (test tpni=245) 40.0 % 40.1-51.0 MEAN CORPUSCULAR VOLUME (BEAKER) (test huro=698) 89.7 fL 79.0-92.2 MEAN CORPUSCULAR HEMOGLOBIN (BEAKER) (test 29.1 pg 25.7-32.2 uxlp=820) MEAN CORPUSCULAR HEMOGLOBIN CONC (BEAKER) (test 32.5 GM/DL 32.3-36.5 gxtj=473) RED CELL DISTRIBUTION WIDTH (BEAKER) (test 13.9 % 11.6-14.4 ytue=921) PLATELET COUNT (BEAKER) (test hail=925) 246 K/CU MM 150-450 MEAN PLATELET VOLUME (BEAKER) (test mgji=480) 9.9 fL 9.4-12.4 NUCLEATED RED BLOOD CELLS (BEAKER) (test 0 /100 WBC 0-0 anda=246) [id number] 21:34:00 Test Item Value Reference Range Comments PARTIAL THROMBOPLASTIN TIME (BEAKER) (test 54.7 seconds 22.5-36.0 oivh=553) [id number] 12:22:00 Test Item Value Reference Range Comments PARTIAL THROMBOPLASTIN TIME (BEAKER) (test 62.7 seconds 22.5-36.0 xwec=129) TROPONIN [id number] 09:48:00 Test Item Value Reference Range Comments TROPONIN I (BEAKER) (test whvn=515) 0.79 ng/mL 0.00-0.03 Troponin I (TnI) levels [...] acidosis, acute neurological disease, and persistent tachyarrhythmia.TROPONIN [id number] 05:58:00 Test Item Value Reference Range Comments TROPONIN I (BEAKER) (test qqhm=704) 0.88 ng/mL 0.00-0.03 Troponin I (TnI) levels [...] acute neurological disease, and persistent tachyarrhythmia.BASIC METABOLIC [id number] 05:57:00 Test Item Value Reference Range Comments SODIUM (BEAKER) (test 138 meq/L 136-145 lyhy=081) POTASSIUM (BEAKER) (test 4.6 meq/L 3.5-5.1 Specimen slightly qxjd=881) hemolyzed CHLORIDE (BEAKER) (test 106 meq/L 98-107 yvqx=244) CO2 (BEAKER) (test 21 meq/L 22-29 vxqm=149) BLOOD UREA NITROGEN 34 mg/dL 7-21 (BEAKER) (test ynqd=319) CREATININE (BEAKER) (test 2.55 mg/dL 0.57-1.25 Specimen slightly fizh=560) hemolyzed GLUCOSE RANDOM (BEAKER) 99 mg/dL 70-105 (test ukci=156) CALCIUM (BEAKER) (test 8.7 mg/dL 8.4-10.2 ykih=152) EGFR (BEAKER) (test 25 mL/min/1.73 sq m ESTIMATED GFR IS NOT nqcd=6770) ACCURATE CREATININE CLEARANCE IN PREDICTING GLOMERULAR FILTRATION RATE. ESTIMATED GFR IS NOT APPLICABLE FOR DIALYSIS PATIENTS. [id number] 05:51:00 Test Item Value Reference Range Comments MAGNESIUM (BEAKER) (test 2.7 mg/dL 1.6-2.6 Specimen slightly hemolyzed pmdl=138) [id number] 05:43:00 Test Item Value Reference Range Comments PARTIAL THROMBOPLASTIN TIME (BEAKER) (test 95.4 seconds 22.5-36.0 sozk=005) CBC (HEMOGRAM ONLY)2019-05-11 05:28:00 Test Item Value Reference Range Comments WHITE BLOOD CELL COUNT (BEAKER) (test tqat=513) 5.1 K/ L 3.5-10.5 RED BLOOD CELL COUNT (BEAKER) (test akdc=249) 4.14 M/ L 4.63-6.08 HEMOGLOBIN (BEAKER) (test ucxo=935) 12.2 GM/DL 13.7-17.5 HEMATOCRIT (BEAKER) (test shfu=072) 37.7 % 40.1-51.0 MEAN CORPUSCULAR VOLUME (BEAKER) (test anvo=992) 91.1 fL 79.0-92.2 MEAN CORPUSCULAR HEMOGLOBIN (BEAKER) (test 29.5 pg 25.7-32.2 tgau=735) MEAN CORPUSCULAR HEMOGLOBIN CONC (BEAKER) (test 32.4 GM/DL 32.3-36.5 fovl=547) RED CELL DISTRIBUTION WIDTH (BEAKER) (test 14.2 % 11.6-14.4 ilfc=447) PLATELET COUNT (BEAKER) (test zrjp=357) 227 K/CU MM 150-450 MEAN PLATELET VOLUME (BEAKER) (test ohuo=905) 10.0 fL 9.4-12.4 NUCLEATED RED BLOOD CELLS (BEAKER) (test 0 /100 WBC 0-0 angy=629) TROPONIN [id number] 21:33:00 Test Item Value Reference Range Comments TROPONIN I (BEAKER) (test lwnd=779) 0.81 ng/mL 0.00-0.03 Troponin I (TnI) levels [...] NATRIURETIC PEPTIDE (BEAKER) (test 1922 pg/mL 0-100 tanm=284) [id number] 21:21:00 Test Item Value Reference Range Comments MAGNESIUM (BEAKER) (test goys=214) 2.0 mg/dL 1.6-2.6 CREATINE KINASE (CK)2019-05-10 21:21:00 Test Item Value Reference Range Comments CREATINE KINASE TOTAL (BEAKER) (test twpf=995) 58 U/L 29-200 BASIC METABOLIC [id number] 21:21:00 Test Item Value Reference Range Comments SODIUM (BEAKER) (test 136 meq/L 136-145 kodw=935) POTASSIUM (BEAKER) (test 4.5 meq/L 3.5-5.1 nlpl=723) CHLORIDE (BEAKER) (test 109 meq/L 98-107 vhxz=017) CO2 (BEAKER) (test 18 meq/L 22-29 gndg=510) BLOOD UREA NITROGEN 30 mg/dL 7-21 (BEAKER) (test pgyg=443) CREATININE (BEAKER) (test 2.28 mg/dL 0.57-1.25 pxqx=483) GLUCOSE RANDOM (BEAKER) 115 mg/dL 70-105 (test eimp=538) CALCIUM (BEAKER) (test 8.9 mg/dL 8.4-10.2 yzqv=913) EGFR (BEAKER) (test 28 mL/min/1.73 sq m ESTIMATED GFR IS NOT umvp=8406) ACCURATE CREATININE CLEARANCE IN PREDICTING GLOMERULAR FILTRATION RATE. ESTIMATED GFR IS NOT APPLICABLE FOR DIALYSIS PATIENTS. [id number] 21:03:00 Test Item Value Reference Range Comments PROTIME (BEAKER) (test njao=649) 14.6 seconds 11.9-14.2 INR (BEAKER) (test wdno=606) 1.2 <=5.9 PARTIAL THROMBOPLASTIN TIME (BEAKER) (test 40.5 seconds 22.5-36.0 tezp=381) Effective 10/12/2018: PT Reference Range ChangeNew: 11.9-14.2 Previous: 11.7- 14.7RECOMMENDED COUMADIN/WARFARIN INR THERAPY RANGESSTANDARD DOSE: 2.0-3.0 Includes: PROPHYLAXIS for venous thrombosis, systemic embolization; TREATMENT for venous thrombosis and/or pulmonary embolus.HIGH RISK: Target INR is2.5-3.5 for patients wiht mechanical heart valves.CBC W/PLT COUNT & AUTO [id number] 20:54:00 Test Item Value Reference Range Comments WHITE BLOOD CELL COUNT (BEAKER) (test oowy=007) 5.2 K/ L 3.5-10.5 RED BLOOD CELL COUNT (BEAKER) (test fbax=051) 4.21 M/ L 4.63-6.08 HEMOGLOBIN (BEAKER) (test qhat=791) 12.4 GM/DL 13.7-17.5 HEMATOCRIT (BEAKER) (test zaer=263) 38.9 % 40.1-51.0 MEAN CORPUSCULAR VOLUME (BEAKER) (test vvvu=651) 92.4 fL 79.0-92.2 MEAN CORPUSCULAR HEMOGLOBIN (BEAKER) (test 29.5 pg 25.7-32.2 ppij=426) MEAN CORPUSCULAR HEMOGLOBIN CONC (BEAKER) (test 31.9 GM/DL 32.3-36.5 ciwt=690) RED CELL DISTRIBUTION WIDTH (BEAKER) (test 14.3 % 11.6-14.4 heho=874) PLATELET COUNT (BEAKER) (test xcph=398) 238 K/CU MM 150-450 MEAN PLATELET VOLUME (BEAKER) (test fcon=317) 10.0 fL 9.4-12.4 NUCLEATED RED BLOOD CELLS (BEAKER) (test 0 /100 WBC 0-0 cnpn=238) NEUTROPHILS RELATIVE PERCENT (BEAKER) (test 61 % zwpj=329) LYMPHOCYTES RELATIVE PERCENT (BEAKER) (test 27 % stsb=320) MONOCYTES RELATIVE PERCENT (BEAKER) (test 8 % zgem=440) EOSINOPHILS RELATIVE PERCENT (BEAKER) (test 3 % gfma=639) BASOPHILS RELATIVE PERCENT (BEAKER) (test 1 % ztrj=709) NEUTROPHILS ABSOLUTE COUNT (BEAKER) (test 3.17 K/ L 1.78-5.38 bmuo=115) LYMPHOCYTES ABSOLUTE COUNT (BEAKER) (test 1.38 K/ L 1.32-3.57 sjcr=557) MONOCYTES ABSOLUTE COUNT (BEAKER) (test 0.40 K/ L 0.30-0.82 fmhn=504) EOSINOPHILS ABSOLUTE COUNT (BEAKER) (test 0.16 K/ L 0.04-0.54 tubt=811) BASOPHILS ABSOLUTE COUNT (BEAKER) (test 0.03 K/ L 0.01-0.08 jtin=028) IMMATURE GRANULOCYTES-RELATIVE PERCENT (BEAKER) 0 % 0-1 (test jcct=5509)
[2019-07-11 15:00] LABS: Absolute Lymphocytes (CBC) 0.9 K/uL (0.7-4.9); Hematocrit 29.1 % (39.6-49.0); Lymphocytes % 21.6 % (15.3-44.8); MPV 8.4 fL (7.6-11.3); RBC Red Blood Cell Count 3.14 M/uL (4.33-5.43)
[2019-07-11 15:05] LABS: Protime INR 2.75
[2019-07-11] MEDS ORDERED: MECLIZINE HCL 12.5 MG TAB ONE (15:23)
--- NOTE | 2019-07-11 16:14 | RAD REPORT ---
EXAM DESCRIPTION: RAD - Chest Single View - 07/11/2019 2:58 pm CLINICAL HISTORY: PAIN COMPARISON: Chest Pa And Lat (2 Views) dated 07/02/2019; Chest Single View dated 06/30/2019 TECHNIQUE: AP portable chest image was obtained 07/11/2019 2:58 pm . FINDINGS: Lungs are underinflated. Prominent interstitial pattern seen. Scattered alveolar opacities are present in the mid and lower left lung field. Significant cardiomegaly is present. Vascular engo rgement is seen. Pacemaker is in place. Sternotomy wires in place. Small pleural effusions suspected on the right. No acute bony abnormality seen. No acute aortic findings suspected. IMPRESSION: Moderate severity CHF/ volume overload pattern.
[2019-07-11 16:32] LABS: Albumin 2.8 g/dL (3.4-5.0); Bilirubin Direct 0.3 mg/dL (0-0.2); Bilirubin Total 0.8 mg/dL (0.2-1.0); Magnesium 2.6 mg/dL (1.8-2.4); Potassium 4.2 mmol/L (3.5-5.1); Troponin (Emerg Dept Use Only) 0.08 ng/mL (0.0-0.045)
--- NOTE | 2019-07-11 17:03 | ER ---
Nurse's Notes [facility] Name: Neftaly Varghese Age: 73 yrs Sex: Male : 1945 Arrival Date: 07/11/2019 Time: 14:33 Bed 14 Private MD: Diagnosis: Unspecified combined systolic (congestive) and diastolic (congestive) heart failure;Vertigo of central origin, unspecified ear Presentation: 07/11 14:37 Presenting complaint: EMS states: called out for dizziness and vomiting, was taking a em walk and began having a dizzy spell, reports feeling similar to last episode of vertigo that was about 5 years ago, denies pain. Transition of care: patient was not received from another setting of care. Onset of symptoms was July 11, 2019. Risk Assessment: Do you want to hurt yourself or someone else? Patient reports no desire to harm self or others. Initial Sepsis Screen: Does the patient meet any 2 criteria? No. Patient's initial sepsis screen is negative. Does the patient have a suspected source of infection? No. Patient's initial sepsis screen is negative. Care prior to arrival: None. 14:37 Method Of Arrival: EMS em 14:37 Acuity: DEVONTE 3 em Historical: - Allergies: 14:43 Codeine; em - Home Meds: 14:43 amiodarone 200 mg Oral tab 1 tab once daily [Active]; atorvastatin 80 mg Oral tab 1 tab em once daily [Active]; bumetanide 1 mg Oral tab 1 tab 2 times per day [Active]; clopidogrel 75 mg Oral tab 1 tab once daily for Thrombosis Prevention after Percutaneous Coronary Intervention [Active]; Eliquis 5 mg Oral tab 1 tab 2 times per day [Active]; esomeprazole magnesium 40 mg Oral cpDR 1 cap once daily [Active]; famotidine 10 mg oral tab [Active]; tamsulosin 0.4 mg Oral cp24 2 caps once daily [Active]; trazodone 50 mg Oral tab 1 tab nightly [Active]; Nitrostat 0.4 mg SL subl 1 tab as needed [Active]; metoprolol succinate 25 mg Oral Tb24 0.5 tab twice a day [Active]; folic acid 400 mcg Oral tab 1 tab once daily for Folate Deficiency [Active]; metoclopramide HCl 10 mg Oral tab 1 tab before meals [Active]; gabapentin 100 mg Oral cap 1 caps 3 times per day [Active]; - PMHx: 14:43 Atrial Fib; Hyperlipidemia; Hypertension; Myocardial infarction; TIA; em - PSHx: 14:43 CABG; Kidney stents; PROSTATE SX; PACEMAKER; CARDIAC STENTS; em - Immunization history:: Adult Immunizations up to date. - Coronavirus screen:: The patient has NOT traveled to [place] in the past 14 days. The patient has NOT had contact with known/suspected case of Coronavirus?. - Social history:: Smoking status: Patient denies any tobacco usage or history of. - Ebola Screening: : Patient negative for fever greater than or equal to 101.5 degrees Fahrenheit, and additional compatible Ebola Virus Disease symptoms Patient denies exposure to infectious person Patient denies travel to an Ebola-affected area in the 21 days before illness onset No symptoms or risks identified at this time. Screenin:43 Abuse screen: Denies threats or abuse. Nutritional screening: No deficits noted. em Tuberculosis screening: No symptoms or risk factors identified. Fall Risk None identified. Assessment: 14:43 General: Appears in no apparent distress. uncomfortable, Behavior is calm, cooperative, em Denies fever. Pain: Denies pain. Neuro: Level of Consciousness is awake, alert, obeys commands, Oriented to person, place, time, situation, Appropriate for age Reports dizziness, Denies headache. Cardiovascular: Capillary refill < 3 seconds Patient's skin is warm and dry. Respiratory: Airway is patent Respiratory effort is even, unlabored, Respiratory pattern is regular, symmetrical. GI: Abdomen is flat, Pt is actively vomiting bile, Reports nausea, vomiting. Derm: Skin is intact, is thin, Skin is dry, Skin is pale, Skin temperature is warm. Musculoskeletal: Capillary refill < 3 seconds, Range of motion: intact in all extremities. 16:57 Reassessment: Patient appears in no apparent distress at this time. Patient and/or em family updated on plan of care and expected duration. Pain level reassessed. Patient is alert, oriented x 3, equal unlabored respirations, skin warm/dry/pink. Patient states feeling better. 17:23 Reassessment: Patient appears in no apparent distress at this time. hospitalist at em bedside. 19:10 General: Appears in no apparent distress. comfortable, Behavior is calm, cooperative, rr5 appropriate for age. Pain: Denies pain. Neuro: Level of Consciousness is awake, alert, obeys commands, Oriented to person, place, time, situation, Reports dizziness. Cardiovascular: Capillary refill < 3 seconds Patient's skin is warm and dry. Respiratory: Airway is patent Respiratory effort is even, unlabored, Respiratory pattern is regular, symmetrical. GI: No signs and/or symptoms were reported involving the gastrointestinal system. Abdomen is flat, Reports nausea, vomiting. : No signs and/or symptoms were reported regarding the genitourinary system. EENT: No signs and/or symptoms were reported regarding the EENT system. Derm: Skin is intact, is thin, Skin temperature is warm. Musculoskeletal: Circulation, motion, and sensation intact. Capillary refill < 3 seconds. 19:10 Reassessment: awaiting for room assignment. rr5 20:30 Reassessment: Patient appears in no apparent distress at this time. No changes from rr5 previously documented assessment. Patient is alert, oriented x 3, equal unlabored respirations, skin warm/dry/pink. Vital Signs: 14:43 BP 118 / 85; Pulse 80; Resp 20; Temp 97.4; Pulse Ox 99% on R/A; Weight 79.38 kg; Height em 5 ft. 9 in. (175.26 cm); Pain 0/10; 15:43 BP 121 / 85; Pulse 81; Resp 16; Pulse Ox 97% on R/A; Pain 0/10; em 16:57 BP 119 / 91; Pulse 80; Resp 16; Pulse Ox 97% on R/A; em 17:23 BP 105 / 67; Pulse 80; Resp 18; Pulse Ox 78% on R/A; em 19:30 BP 137 / 97; Pulse 75; Resp 23; Temp 97.7; Pulse Ox 98% on 3 lpm NC; rr5 20:55 BP 121 / 87; Pulse 79; Resp 24; Temp 97.7; Pulse Ox 99% on 3 lpm NC; rr5 14:43 Body Mass Index 25.84 (79.38 kg, 175.26 cm) em 17:23 placed on NC at 3LPM, pt has apneic episodes em ED Course: 14:33 Patient arrived in ED. tw2 14:33 Samuel Amaya MD is Attending Physician. tw4 14:33 Bed in low position. Call light in reach. front desk monitor on. Pulse ox on. NIBP on. tw2 14:37 Mauro Daly, RN is Primary Nurse. em 14:39 Triage completed. em 14:43 Arm band placed on. em 14:43 Maintain EMS IV. Dressing intact. Good blood return noted. Site clean \T\ dry. Gauge \T\ em site: 20 L hand. 14:57 Troponin (emerg Dept Use Only) Sent. [facility] 14:57 Basic Metabolic Panel Sent. 5 14:57 CBC with Diff Sent. 5 14:58 XRAY Chest (1 view) In Process Unspecified. EDMS 14:58 LFT's Sent. 5 14:58 Magnesium Sent. 5 14:58 NT PRO-BNP Sent. 5 14:58 PT-INR Sent. 5 17:00 Cristiano Barksdale is Hospitalizing Provider. tw4 20:57 No provider procedures requiring assistance completed. Patient admitted, IV remains in rr5 place. intact, No redness/swelling at site. 21:15 Primary Nurse role handed off by Mauro Daly RN ar5 21:38 Gold Garrido, RN is Primary Nurse. rr5 Administered Medications: 14:34 Drug: Phenergan 12.5 mg Route: IVP; Site: left hand; tw2 15:02 Follow up: Response: No adverse reaction; Nausea is decreased em 15:34 Drug: Meclizine 25 mg Route: PO; em 17:26 Follow up: Response: No adverse reaction em 17:19 Drug: Lasix 40 mg Route: IVP; Site: left hand; em Outcome: 17:01 Decision to Hospitalize by Provider. tw4 20:57 Admitted to Tele accompanied by [facility], via stretcher, room 408, with chart, Report rr5 called to graemesolange 20:57 Condition: stable 20:57 Instructed on the need for admit. 21:39 Patient left the ED. rr5 Signatures: Dispatcher [employer] Mauro Gomez, RN YEIMI em Lesley Link RN RN tw2 Sharon Clifton 5 Samuel Amaya MD MD tw4 Gold Garrido, RN RN rr5 Jennie Urias ar5 Corrections: (The following items were deleted from the chart) 20:55 19:30 BP 137 / 97; Pulse 75bpm; Resp 17bpm; Pulse Ox 98% 3 lpm Nasal Cannula; Temp rr5 97.7F; rr5
--- NOTE | 2019-07-11 17:04 | EDPHYS ---
Physician Documentation [facility] Name: Neftaly Varghese Age: 73 yrs Sex: Male : 1945 Arrival Date: 07/11/2019 Time: 14:33 Bed 14 Private MD: ED Physician Samuel Amaya HPI: 07/11 17:35 This 73 yrs old Male presents to ER via EMS with complaints of dizziness, n/v.tw4 17:35 The patient presents with lightheadedness, sense of spinning. Onset: The tw4 symptoms/episode began/occurred today. Context: occurred outdoors, occurred while the patient was walking. Modifying factors: The symptoms are alleviated by nothing, the symptoms are aggravated by movement of head, standing up, changing position. Associated signs and symptoms: Pertinent positives: nausea, vomiting, Pertinent negatives: abdominal pain, agitation, ataxia, blurred vision, chest pain, combativeness, confusion, diaphoresis, focal weakness, head injury, headache. The patient has not experienced similar symptoms in the past. Historical: - Allergies: 14:43 Codeine; em - Home Meds: 14:43 amiodarone 200 mg Oral tab 1 tab once daily [Active]; atorvastatin 80 mg Oral tab 1 tab em once daily [Active]; bumetanide 1 mg Oral tab 1 tab 2 times per day [Active]; clopidogrel 75 mg Oral tab 1 tab once daily for Thrombosis Prevention after Percutaneous Coronary Intervention [Active]; Eliquis 5 mg Oral tab 1 tab 2 times per day [Active]; esomeprazole magnesium 40 mg Oral cpDR 1 cap once daily [Active]; famotidine 10 mg oral tab [Active]; tamsulosin 0.4 mg Oral cp24 2 caps once daily [Active]; trazodone 50 mg Oral tab 1 tab nightly [Active]; Nitrostat 0.4 mg SL subl 1 tab as needed [Active]; metoprolol succinate 25 mg Oral Tb24 0.5 tab twice a day [Active]; folic acid 400 mcg Oral tab 1 tab once daily for Folate Deficiency [Active]; metoclopramide HCl 10 mg Oral tab 1 tab before meals [Active]; gabapentin 100 mg Oral cap 1 caps 3 times per day [Active]; - PMHx: 14:43 Atrial Fib; Hyperlipidemia; Hypertension; Myocardial infarction; TIA; em - PSHx: 14:43 CABG; Kidney stents; PROSTATE SX; PACEMAKER; CARDIAC STENTS; em - Immunization history:: Adult Immunizations up to date. - Coronavirus screen:: The patient has NOT traveled to [place] in the past 14 days. The patient has NOT had contact with known/suspected case of Coronavirus?. - Social history:: Smoking status: Patient denies any tobacco usage or history of. - Ebola Screening: : Patient negative for fever greater than or equal to 101.5 degrees Fahrenheit, and additional compatible Ebola Virus Disease symptoms Patient denies exposure to infectious person Patient denies travel to an Ebola-affected area in the 21 days before illness onset No symptoms or risks identified at this time. ROS: 17:35 Constitutional: Negative for fever, chills, and weight loss, Eyes: Negative for injury, tw4 pain, redness, and discharge, Cardiovascular: Negative for chest pain, palpitations, and edema, Respiratory: Negative for shortness of breath, cough, wheezing, and pleuritic chest pain, Abdomen/GI: Negative for abdominal pain, nausea, vomiting, diarrhea, and constipation, MS/Extremity: Negative for injury and deformity, Skin: Negative for injury, rash, and discoloration. 17:35 Neuro: Positive for dizziness, Negative for altered mental status, gait disturbance, headache, hearing loss, loss of consciousness, numbness, seizure activity, speech changes, syncope, near syncope, tingling, tinnitus, tremor. Exam: 17:35 Constitutional: This is a well developed, well nourished patient who is awake, alert, tw4 and in no acute distress. Head/Face: Normocephalic, atraumatic. Chest/axilla: Normal chest wall appearance and motion. Nontender with no deformity. No lesions are appreciated. Cardiovascular: Regular rate and rhythm with a normal S1 and S2. No gallops, murmurs, or rubs. Normal PMI, no JVD. No pulse deficits. Abdomen/GI: Soft, non-tender, with normal bowel sounds. No distension or tympany. No guarding or rebound. No evidence of tenderness throughout. Back: No spinal tenderness. No costovertebral tenderness. Full range of motion. MS/ Extremity: Pulses equal, no cyanosis. Neurovascular intact. Full, normal range of motion. Neuro: Awake and alert, GCS 15, oriented to person, place, time, and situation. Cranial nerves II-XII grossly intact. Motor strength 5/5 in all extremities. Sensory grossly intact. Cerebellar exam normal. Normal gait. 17:35 Respiratory: the patient does not display signs of respiratory distress, Respirations: Breath sounds: rales, are located in both bases. Vital Signs: 14:43 BP 118 / 85; Pulse 80; Resp 20; Temp 97.4; Pulse Ox 99% on R/A; Weight 79.38 kg; Height em 5 ft. 9 in. (175.26 cm); Pain 0/10; 15:43 BP 121 / 85; Pulse 81; Resp 16; Pulse Ox 97% on R/A; Pain 0/10; em 16:57 BP 119 / 91; Pulse 80; Resp 16; Pulse Ox 97% on R/A; em 17:23 BP 105 / 67; Pulse 80; Resp 18; Pulse Ox 78% on R/A; em 19:30 BP 137 / 97; Pulse 75; Resp 23; Temp 97.7; Pulse Ox 98% on 3 lpm NC; rr5 20:55 BP 121 / 87; Pulse 79; Resp 24; Temp 97.7; Pulse Ox 99% on 3 lpm NC; rr5 14:43 Body Mass Index 25.84 (79.38 kg, 175.26 cm) em 17:23 placed on NC at 3LPM, pt has apneic episodes em MDM: 14:34 Patient medically screened. tw4 17:38 Differential diagnosis: cardiac arrhythmia, CVA, TIA, vertigo. Data reviewed: vital tw4 signs, nurses notes. Data interpreted: Pulse oximetry: Interpretation: normal. Counseling: I had a detailed discussion with the patient and/or guardian regarding: the historical points, exam findings, and any diagnostic results supporting the discharge/admit diagnosis. Physician consultation: Cristiano Barksdale regarding admission, to the telemetry unit. patient's condition, and will see patient in ED. 07/11 14:36 Order name: Basic Metabolic Panel; Complete Time: 16:53 tw4 07/11 16:53 Interpretation: Normal except: GLUC 118; GFR 14; CRE 4.25; BUN 51. tw4 07/11 14:36 Order name: CBC with Diff; Complete Time: 16:53 tw4 07/11 16:53 Interpretation: Normal except: WBC 4.0; RBC 3.14; HGB 9.2; HCT 29.1; MCHC 31.8; RDW tw4 18.7. 07/11 14:36 Order name: LFT's; Complete Time: 16:53 07/11 16:54 Interpretation: Normal except: ALK 179; BILID 0.3; ALB 2.8; GLOB 4.2; A/G 0.7. 07/11 14:36 Order name: Magnesium; Complete Time: 16:53 07/11 16:54 Interpretation: Normal except: MG 2.6. 07/11 14:36 Order name: NT PRO-BNP; Complete Time: 16:53 07/11 16:54 Interpretation: Abnormal: NT PRO-BNP 51261. 07/11 14:36 Order name: PT-INR; Complete Time: 16:53 07/11 16:54 Interpretation: Normal except: PT 31.2. 07/11 14:36 Order name: Troponin (emerg Dept Use Only); Complete Time: 16:53 07/11 16:55 Interpretation: Abnormal: TROPED 0.08. 07/11 14:36 Order name: XRAY Chest (1 view); Complete Time: 16:53 07/11 14:36 Order name: EKG; Complete Time: 14:39 07/11 14:36 Order name: Cardiac monitoring; Complete Time: 14:57 07/11 18:19 Order name: CT Head Brain wo Cont 07/11 14:36 Order name: EKG - Nurse/Tech; Complete Time: 15:24 07/11 14:36 Order name: IV Saline Lock; Complete Time: 14:57 07/11 14:36 Order name: Labs collected and sent; Complete Time: 14:57 07/11 14:36 Order name: O2 Per Protocol; Complete Time: 14:59 07/11 14:37 Order name: O2 Sat Monitoring; Complete Time: 14:59 07/11 15:15 Order name: Labs - recollect needed: recollect c7; Complete Time: 15:25 bd EC:35 Rate is 80 beats/min. Rhythm is regular. QRS [place] is Normal. MT interval is normal. QRS tw4 interval is normal. QT interval is normal. No Q waves. T waves are Inverted in leads aVL, V6. No ST changes noted. Clinical impression: NSR w/ Non-specific ST/T Changes and Abnormal EKG without significant change. Interpreted by me. Reviewed by me. Administered Medications: 14:34 Drug: Phenergan 12.5 mg Route: IVP; Site: left hand; tw2 15:02 Follow up: Response: No adverse reaction; Nausea is decreased em 15:34 Drug: Meclizine 25 mg Route: PO; em 17:26 Follow up: Response: No adverse reaction em 17:19 Drug: Lasix 40 mg Route: IVP; Site: left hand; em Disposition: 07/11/19 17:01 Hospitalization ordered by Cristiano Barksdale for Inpatient Admission. Preliminary diagnosis are Unspecified combined systolic (congestive) and diastolic (congestive) heart failure, Vertigo of central origin, unspecified ear. - Bed requested for Telemetry/MedSurg (Inpatient). - Status is Inpatient Admission. rr5 - Condition is Stable. - Problem is new. - Symptoms are unchanged. Signatures: Dispatcher [employer] EDMS Juliana Her Diana, RN RN Mauro Daly, RN YEIMI Lesley Link RN RN tw2 Samuel Amaya MD MD tw4 Gold Garrido, RN RN rr5 Corrections: (The following items were deleted from the chart) 20:01 17:01 Hospitalization Ordered by Cristiano Barksdale for Inpatient Admission. Preliminary dw diagnosis is Unspecified combined systolic (congestive) and diastolic (congestive) heart failure; Vertigo of central origin, unspecified ear. Bed requested for Telemetry/MedSurg (Inpatient). Status is Inpatient Admission. Condition is Stable. Problem is new. Symptoms are unchanged. tw4 21:39 20:01 07/11/2019 17:01 Hospitalization Ordered by Cristiano Barksdale for Inpatient rr5 Admission. Preliminary diagnosis is Unspecified combined systolic (congestive) and diastolic (congestive) heart failure; Vertigo of central origin, unspecified ear. Bed requested for Telemetry/MedSurg (Inpatient). Status is Inpatient Admission. Condition is Stable. Problem is new. Symptoms are unchanged. dw
[2019-07-11] MEDS ORDERED: FUROSEMIDE 40 MG/4 ML VIAL ONE (17:09)
--- NOTE | 2019-07-11 18:15 | P.HP ---
Certification for Inpatient Patient admitted to: Inpatient With expected LOS: >2 Midnights Practitioner: I am a practitioner with admitting privileges, knowledge of patient current condition, hospital course, and medical plan of care. Services: Services provided to patient in accordance with Admission requirements found in Title 42 Section 412.3 of the Code of Federal Regulations Patient History Date of Service: 07/12/19 Reason for admission: Dizziness, left-sided weakness History of Present Illness: 73-year-old gentleman with a history of recent CABG about 1 month ago, was brought to the emergency department due to a sudden episode of dizziness and left-sided weakness. According to the patient left leg gave way. She is sat him on a chair after that but patient was leaning towards the left. Patient was brought to the emergency department where chest x-ray is demonstrating pulmonary edema. His serum creatinine is elevated to 4. BNP is markedly elevated. Troponin is mildly elevated. CT head has not been performed yet. EKG demonstrated paced rhythm. Noted patient was hospitalized a few days ago for CHF exacerbation. His echocardiogram showed an ejection fraction of 15%. Patient is admitted for further management. Allergies codeine Adverse Reaction (Mild, Verified 07/11/19 22:10) Nausea/Vomiting Home Medications: Amiodarone HCl [Cordarone*] 200 mg PO DAILY 06/29/19 Apixaban [Eliquis] 5 mg PO BID 06/29/19 Atorvastatin Calcium [Lipitor] 80 mg PO BEDTIME 06/29/19 Cholecalciferol (Vitamin D3) [Vitamin D3] 2,000 unit PO DAILY 06/29/19 Clopidogrel Bisulfate [Plavix] 75 mg PO DAILY 06/29/19 Esomeprazole Magnesium 40 mg PO DAILY 06/29/19 Ezetimibe 10 mg PO BEDTIME 06/29/19 Famotidine 10 mg PO BEDTIME 06/29/19 Folic Acid 0.4 mg PO DAILY 06/29/19 Metoclopramide [Reglan*] 10 mg PO TID 06/29/19 Metoprolol Tartrate 25 mg PO BID 06/29/19 Nitroglycerin [Nitrostat*] 0.4 mg SL SEECOM 06/29/19 [place]-3/Dha/Epa/Fish Oil [Fish Oil 1,000 mg Softgel] 2 each PO DAILY 06/29/19 Tamsulosin [Flomax*] 2 cap PO DAILY 06/29/19 Trazodone [Desyrel*] 50 mg PO BEDTIME 06/29/19 Aspirin [Aspirin EC 81 MG] 81 mg PO DAILY 06/30/19 Calcitrol [Rocaltrol*] 0.5 mcg PO DAILY 07/12/19 Furosemide [Lasix] 40 mg PO DAILY 07/12/19 Sertraline HCl 1 tab PO DAILY 07/12/19 Spironolactone 50 mg PO DAILY 07/12/19 - Past Medical/Surgical History Diabetic: No -: HTN -: BPH -: CAD, MA, Stent to the heart, Cardiology-Dr. 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 moist/pink, Sclerae nonicteric Neck: Supple, JVD not distended Respiratory: Crackles/rales (Bilateral) Cardiovascular: Regular rate/rhythm, No murmurs, Edema (Bilateral lower extremities) Capillary refill: <2 Seconds Gastrointestinal: Normal bowel sounds, Soft and benign, Non-distended, No tenderness Musculoskeletal: No erythema Integumentary: No rashes Neurological: Normal strength at 5/5 x4 extr, Cranial nerves 3-12 intact - Studies Laboratory Data (last 24 hrs) 07/11/19 15:32: Sodium 138, Potassium 4.2, BUN 51 H, Creatinine 4.25 H D, Glucose 118 H, Magnesium 2.6 H D, Total Bilirubin 0.8, AST 20, ALT 27, Alkaline Phosphatase 179 H 07/11/19 14:52: PT 31.2 H, INR 2.75 07/11/19 14:52: WBC 4.0 L, Hgb 9.2 L, Hct 29.1 L, Plt Count 298 Assessment and Plan - Problems (Diagnosis) (1) Acute on chronic systolic CHF (congestive heart failure) Current Visit: Yes Status: Acute (2) Vertigo Current Visit: Yes Status: Acute (3) Transient weakness of left leg Current Visit: Yes Status: Acute (4) Atrial fibrillation Current Visit: No Status: Chronic (5) Coronary arteriosclerosis Current Visit: No Status: Chronic - Plan Admit to telemetry Continue to trend troponin Obtain CT head to rule out acute CVA. IV Lasix to treat CHF exacerbation. Monitor renal function closely on IV Lasix. Hold Aldactone for now. Hold metoprolol given borderline low blood pressure. Consulted Nephrology to assist with management. Consult to cardiology Continue amiodarone for AFib and history of V-tach. Reduced Eliquis dose given worsening renal function. Continue aspirin and Plavix - Advance Directives Does patient have a Living Will: No Does patient have a Durable POA for Healthcare: No
[2019-07-11] MEDS ORDERED: ONDANSETRON 4 MG/2 ML VIAL IV PRN (20:46)
[2019-07-11] MEDS ORDERED: ALBUTEROL 2.5 MG/3 ML NEB SOL NEB PRN (20:46)
[2019-07-11 22:12] VITALS: BMI 26.2
[2019-07-11 22:39] LABS: Urine Appearance CLEAR; Urine Bilirubin NEGATIVE (NEG); Urine Blood NEGATIVE (NEG); Urine Color YELLOW; Urine Glucose NEGATIVE (NEG); Urine Protein NEGATIVE (NEG)
[2019-07-11 22:41] LABS: Urine Microscopic Reflex NO UMIC
[2019-07-12] MEDS: APIXABAN 2.5 MG TABLET PO SCH ×3 (00:06→20:41)
[2019-07-12 05:54] LABS: Absolute Lymphocytes (CBC) 0.9 K/uL (0.7-4.9); Basophils % 0.7 % (0-1.3); Hematocrit 28.3 % (39.6-49.0); MPV 8.2 fL (7.6-11.3); RBC Red Blood Cell Count 3.04 M/uL (4.33-5.43)
[2019-07-12 06:10] LABS: Protime INR 2.35
[2019-07-12 06:56] LABS: Albumin 2.8 g/dL (3.4-5.0); Bilirubin Total 0.7 mg/dL (0.2-1.0); Potassium 4.3 mmol/L (3.5-5.1); Protein, Total 6.7 g/dL (6.4-8.2)
--- NOTE | 2019-07-12 08:19 | EKG ---
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
[2019-07-12] MEDS ORDERED: FUROSEMIDE 40 MG/4 ML VIAL IV SCH (09:00)
--- NOTE | 2019-07-12 09:22 | RAD REPORT ---
EXAM DESCRIPTION: CT - Head Brain Wo Cont - 07/12/2019 9:11 am CLINICAL HISTORY: MENTAL STATUS CHANGE, transient alteration of awareness COMPARISON: HEAD BRAIN W O CONTRAST dated 06/25/2013; Chest Single View dated 07/11/2019 TECHNIQUE: Axial 5 mm thick images of the head were obtained without IV contrast. All CT scans are performed using dose optimization technique as appropriate and may include automated exposure control or mA/KV adjustment according to patient size. FINDINGS: No intracranial hemorrhage, mass, edema or shift of mid-line structures. No acute cortical based infarction. No cortical edema or sulcal effacement. Mild to moderate atrophy changes present. Patient has advanced chronic ischemic change in the cerebral white matter. Ventricles are in proporti on to volume loss. Atrophy and chronic ischemic changes are not substantially different from the 2014 study. Mastoid air cells and visualized portions of the paranasal sinuses are clear. No acute bony findings. IMPRESSION: No acute intracranial finding identifiable. Patient has unkr-gh-[id number] atrophy and advance chronic ischemic changes that have not substantially changed from 2014.
--- NOTE | 2019-07-12 09:27 | RAD REPORT ---
EXAM DESCRIPTION: - CP - 07/12/2019 8:54 am CLINICAL HISTORY: posible tia, stroke-like symptoms COMPARISON: CAROTID ARTERY BILATERAL dated 06/25/2013 TECHNIQUE: Real-time sonographic evaluation of bilateral carotid and vertebral systems was performed . Villagomez scale and Doppler interrogation were performed with waveform tracing bilaterally. FINDINGS: Dampened waveforms and diminished velocity values are noted in the bilateral common caroti d and internal carotid arteries. There is bilateral significant calcified plaquing changes in the shaggy alicia vessels at the proximal and distal margins of the bilateral carotid stents. Very significant velocity elevation noted in each external carotid artery. External carotid stenoses are generally not clinically significant. ICA/CCA ratios are elevated bilaterally. The ICA and CCA ve locities are not abnormally elevated but visual inspection does show evidence for 50% stenoses. Both vertebral arteries were poorly visualized and cannot be adequately assessed. Velocity values and ratios were recorded and are retained in the patient's imaging records. IMPRESSION: Significant calcified plaquing changes are present at the proximal and distal margins of each carotid stent. Bilateral 50% stenoses are evident. Poorly visualized vertebral arteries. No assessment can be made. No evidence of a hemodynamically significant stenosis.
[2019-07-12] MEDS: ASPIRIN EC 81 MG TAB PO SCH (09:53)
[2019-07-12] MEDS: CLOPIDOGREL 75 MG TABLET PO SCH (09:53)
--- NOTE | 2019-07-12 12:33 | CON ---
History Of Present Illness: Mr. Varghese came to the hospital because he got very dizzy. He was havi ng dry heaves, felt intensely vertiginous, got a little sweaty, also noticed that he could not use hi s left leg, was constantly tending to fall towards the left. He did not actually fall, but he could not stand straight. All of this resolved since he has been here in the hospital and he does not have any physical findings to suggest he has had a stroke. He has abnormal troponins, but probably a com ponent of his worsening renal failure. His GFR is now estimated to be 13. He will probably be a orquidea lysis patient soon. Mr. Varghese has severe heart disease, recently underwent bypass surgery, also hernández s a pacemaker, very poor ejection fraction in the 20% range, little confused as to why the patient go t a pacemaker instead of a defibrillator with his EF . His hospital course after bypass guillaume rgery was complicated by nearly a month in the hospital with inotropic support and long-term hemodyna deanne support with an inhaler device. He has been at home for about 2 weeks, was in our hospital about a week and a half ago. He is not having chest pain or shortness of breath. The main thing he had w as the vertigo spell that caused him to come. At this point, he has not had a CAT scan of the head. He will not be able to tolerate any contrast. His chest x-ray looks like there is mild interstitial edema. Impression: The patient should probably not be diuresed much more, but he probably needs to be dialy zed pretty soon. We will have a neurological evaluation including a CAT scan of the head, may be an MRI without contrast, although not sure his pacemaker is MRI safe. If probably is, then we can do an MRI if needed. We will call the pacemaker company and have them standby during the MRI. He should probably also have a carotid Doppl er done. VISHNU/DAWIT Voice ID: [id number] Report ID: [id number]
--- NOTE | 2019-07-12 12:36 | P.PN ---
Subjective Date of Service: 07/12/19 Chief Complaint: Dizziness, left-sided weakness Patient states his symptoms have resolved. He denies any dizziness. He denies any left-sided weakness. He stated they were just transient and could be due to TIA. CT head results reviewed and reports no acute CVA. Physical Examination - Vital Signs Temperature: 97.2 F Blood Pressure: 144/85 Pulse: 80 Respirations: 20 Pulse Ox (%): 98 - Physical Exam General: Alert, In no apparent distress, Oriented x3 HEENT: Mucous membr. moist/pink, Sclerae nonicteric Neck: Supple, JVD not distended Respiratory: Clear to auscultation bilaterally, Normal air movement Cardiovascular: No edema, Regular rate/rhythm, Normal S1 S2 Capillary refill: <2 Seconds Gastrointestinal: Normal bowel sounds, Soft and benign, Non-distended, No tenderness Musculoskeletal: No swelling, No erythema Integumentary: No rashes Neurological: Normal speech, Normal strength at 5/5 x4 extr, Cranial nerves 3- 12 intact - Studies Laboratory Data (last 24 hrs) 07/11/19 15:32: Sodium 138, Potassium 4.2, BUN 51 H, Creatinine 4.25 H D, Glucose 118 H, Magnesium 2.6 H D, Total Bilirubin 0.8, AST 20, ALT 27, Alkaline Phosphatase 179 H 07/11/19 14:52: PT 31.2 H, INR 2.75 07/11/19 14:52: WBC 4.0 L, Hgb 9.2 L, Hct 29.1 L, Plt Count 298 Assessment And Plan - Current Problems (Diagnosis) (1) Acute on chronic systolic CHF (congestive heart failure) Current Visit: Yes Status: Acute (2) Vertigo Current Visit: Yes Status: Acute (3) Transient weakness of left leg Current Visit: Yes Status: Acute (4) Atrial fibrillation Current Visit: No Status: Chronic (5) Coronary arteriosclerosis Current Visit: No Status: Chronic - Plan Troponin trended flat indicates demand ischemia, no ACS. CT head negative for acute CVA. Cannot do MRI due to presence of pacemaker. I believe patient is at baseline and compensated for CHF. Will discontinue IV Lasix and resume home maintenance lasix dose. Nephrology consult Continue to hold Aldactone. Blood pressure has improved. Resume metoprolol Consult to cardiology requested. Continue amiodarone for AFib and history of V-tach. Eliquis dose reduced given worsening renal function. Continue aspirin and Plavix
[2019-07-12] MEDS ORDERED: NITROGLYCERIN 0.4 MG/TAB SL PRN (13:00)
[2019-07-12] MEDS: METOCLOPRAMIDE 5 MG TAB PO SCH ×3 (13:11→20:42)
--- NOTE | 2019-07-12 13:48 | ECHO ---
HEIGHT: 5 ft 8 in WEIGHT: 172 lb 6.4 oz DATE OF STUDY: 07/12/[address]: linda carey 2-DIMENSIONAL: YES M.MODE: YES DOPPLER: YES COLOR FLOW: YES TDS: PORTABLE: DEFINITY: BUBBLE STUDY: DIAGNOSIS: CONGESTIVE HEART FAILURE CARDIAC HISTORY: CATHERIZATION: YES SURGERY: YES PROSTHETIC VALVE: NO PACEMAKER: YES MEASUREMENTS (cm) DIASTOLIC (NORMALS) SYSTOLIC (NORMALS) IVSd 1.3 (0.6-1.2) LA Diam (1.9-4.0) LVEF 19% LVIDd 5.2 (3.5-5.7) LVIDs 4.8 (2.0-3.5) %FS 9% LVPWd 1.3 (0.6-1.2) Ao Diam 3.4 (2.0-3.7) 2 DIMENSIONAL ASSESSMENT: RIGHT ATRIUM: DILATED LEFT ATRIUM: DILATED RIGHT VENTRICLE: DILATED, PACEMAKER CATHETER LEFT VENTRICLE: DILATED TRICUSPID VALVE: NORMAL MITRAL VALVE: NORMAL PULMONIC VALVE: NORMAL AORTIC VALVE: NORMAL PERICARDIAL EFFUSION: NONE AORTIC ROOT: NORMAL LEFT VENTRICULAR WALL MOTION: SEVERE GLOBAL HYPOKINESIS DOPPLER/COLOR FLOW: MILD MITRAL AND TRICUSPID REGURGITATION. ESTIMATED RIGHT VENTRICULAR SYSTOLIC PRESSURE 36 mmHg (MILD PULMONARY HYPERTENSION). COMMENTS: FOUR CHAMBER DILATION. SEVERELY DEPRESSED LEFT VENTRICULAR EJECTION FRACTION. PACEMAKER IN RIGHT VENTRICLE. MILD MITRAL AND TRICUSPID REGURGITATION. MILD PULMONARY HYPERTENSION. TECHNOLOGIST: HIPOLITO GOODWIN
[2019-07-12] MEDS: METOPROLOL TAR 25 MG TAB PO SCH (16:40)
[2019-07-12] MEDS ORDERED: ALBUTEROL 2.5 MG/3 ML NEB SOL NEB PRN (18:00)
[2019-07-12] MEDS: TRAZODONE 50 MG TABLET PO SCH (20:41)
[2019-07-12] MEDS: FAMOTIDINE 20 MG TAB PO SCH (20:42)
[2019-07-12] MEDS: ATORVASTATIN 80 MG TAB PO SCH (20:42)
[2019-07-12] MEDS: EZETIMIBE 10 MG TAB PO SCH (20:43)
[2019-07-13 04:29] LABS: Absolute Lymphocytes (CBC) 1.1 K/uL (0.7-4.9); Basophils % 0.7 % (0-1.3); Hematocrit 28.1 % (39.6-49.0); Lymphocytes % 22.5 % (15.3-44.8); MPV 8.3 fL (7.6-11.3); RBC Red Blood Cell Count 3.04 M/uL (4.33-5.43)
[2019-07-13 04:41] LABS: Potassium 4.3 mmol/L (3.5-5.1)
[2019-07-13] MEDS ORDERED: CLOPIDOGREL 75 MG TABLET PO SCH (09:00)
[2019-07-13] MEDS: METOPROLOL TAR 25 MG TAB PO SCH ×2 (09:00→21:46)
[2019-07-13] MEDS: ASPIRIN EC 81 MG TAB PO SCH (09:00)
[2019-07-13] MEDS ORDERED: ASPIRIN EC 81 MG TAB PO SCH (09:00)
[2019-07-13] MEDS: CALCITROL 0.25 MCG CAP PO SCH (10:02)
[2019-07-13] MEDS: FOLIC ACID 1 MG TABLET PO SCH (10:03)
[2019-07-13] MEDS: APIXABAN 2.5 MG TABLET PO SCH ×2 (10:03→21:45)
[2019-07-13] MEDS: SERTRALINE HCL 50 MG TAB PO SCH (10:03)
[2019-07-13] MEDS: PANTOPRAZOLE 40MG TABLET PO SCH (10:03)
[2019-07-13] MEDS: TAMSULOSIN 0.4 MG SR CAP PO SCH (10:03)
[2019-07-13] MEDS: VITAMIN D 1000 UNIT TAB PO SCH (10:03)
[2019-07-13] MEDS: AMIODARONE HCL 200 MG TAB PO SCH (10:04)
[2019-07-13] MEDS: FUROSEMIDE 40 MG TABLET PO SCH (10:04)
[2019-07-13] MEDS: METOCLOPRAMIDE 5 MG TAB PO SCH ×3 (10:04→21:45)
[2019-07-13] MEDS: CLOPIDOGREL 75 MG TABLET PO SCH (10:04)
[2019-07-13] MEDS: DOCOSAHEXANOIC AC/EPA 1000 MG PO SCH (10:05)
--- NOTE | 2019-07-13 11:24 | P.PN ---
Subjective Date of Service: 07/13/19 Chief Complaint: Dizziness, left-sided weakness Subjective: No new changes, Improving Review of Systems 10-point ROS is otherwise unremarkable Physical Examination - Vital Signs Temperature: 97 F Blood Pressure: 144/56 Pulse: 98 Respirations: 18 Pulse Ox (%): 97 - Physical Exam General: Alert, In no apparent distress HEENT: Atraumatic, Normocephalic Neck: Supple Respiratory: Normal air movement, Crackles/rales Cardiovascular: No edema, Regular rate/rhythm, Normal S1 S2 Capillary refill: <2 Seconds Gastrointestinal: Soft and benign, W/out hepatosplenomegaly Musculoskeletal: No clubbing, No swelling Integumentary: No rashes Neurological: Normal speech, Normal strength at 5/5 x4 extr Lymphatics: No axilla or inguinal lymphadenopathy External genitalia: Deferred Rectal: Deferred - Studies Laboratory Last Values WBC 4.8 K/uL (4.3-10.9) 07/13/19 03:59 RBC 3.04 M/uL (4.33-5.43) L 07/13/19 03:59 Hgb 9.2 g/dL (13.6-17.9) L 07/13/19 03:59 Hct 28.1 % (39.6-49.0) L 07/13/19 03:59 MCV 92.2 fL (80-100) 07/13/19 03:59 MCH 30.3 pg (27.0-35.0) 07/13/19 03:59 MCHC 32.9 g/dL (32.0-36.0) 07/13/19 03:59 RDW 18.5 % (12.1-15.2) H 07/13/19 03:59 Plt Count 270 K/uL (152-406) 07/13/19 03:59 MPV 8.3 fL (7.6-11.3) 07/13/19 03:59 Neutrophils % 61.9 % (41.7-73.7) 07/13/19 03:59 Lymphocytes % 22.5 % (15.3-44.8) 07/13/19 03:59 Monocytes % 10.9 % (3.3-12.3) 07/13/19 03:59 Eosinophils % 4.0 % (0-4.4) 07/13/19 03:59 Basophils % 0.7 % (0-1.3) 07/13/19 03:59 Absolute Neutrophils 3.0 K/uL (1.8-8.0) 07/13/19 03:59 Absolute Lymphocytes 1.1 K/uL (0.7-4.9) 07/13/19 03:59 Absolute Monocytes 0.5 K/uL (0.1-1.3) 07/13/19 03:59 Absolute Eosinophils 0.2 K/uL (0-0.5) 07/13/19 03:59 Absolute Basophils 0.0 K/uL (0-0.5) 07/13/19 03:59 PT 26.8 SECONDS (9.5-12.5) H 07/12/19 05:18 INR 2.35 07/12/19 05:18 Sodium 138 mmol/L (136-145) 07/13/19 03:59 Potassium 4.3 mmol/L (3.5-5.1) 07/13/19 03:59 Chloride 101 mmol/L (98-107) 07/13/19 03:59 Carbon Dioxide 29 mmol/L (21-32) 07/13/19 03:59 BUN 51 mg/dL (7-18) H 07/13/19 03:59 Creatinine 3.84 mg/dL (0.55-1.3) H 07/13/19 03:59 Estimated GFR 16 mL/min (=/>90) L 07/13/19 03:59 Glucose 105 mg/dL (74-106) 07/13/19 03:59 Calcium 8.8 mg/dL (8.5-10.1) 07/13/19 03:59 Magnesium 2.6 mg/dL (1.8-2.4) H D 07/11/19 15:32 Total Bilirubin 0.7 mg/dL (0.2-1.0) 07/12/19 05:18 Direct Bilirubin 0.3 mg/dL (0-0.2) H 07/11/19 15:32 AST 20 U/L (15-37) 07/12/19 05:18 ALT 26 U/L (12-78) 07/12/19 05:18 Alkaline Phosphatase 175 U/L (45-117) H 07/12/19 05:18 Rapid Troponin I 0.08 ng/mL (0.0-0.045) H 07/11/19 15:32 Troponin I 0.10 ng/mL (0.0-0.045) H 07/12/19 00:52 NT-Pro-B Natriuret Pep 24641 pg/mL (<125) H 07/12/19 05:18 Serum Total Protein 6.7 g/dL (6.4-8.2) 07/12/19 05:18 Albumin 2.8 g/dL (3.4-5.0) L 07/12/19 05:18 Globulin 3.9 g/dL (2.3-3.5) H 07/12/19 05:18 Albumin/Globulin Ratio 0.7 (1.1-1.8) L 07/12/19 05:18 Urine Color Yellow 07/11/19 21:45 Urine Appearance Clear 07/11/19 21:45 Urine pH 6.0 (5.0-7.0) 07/11/19 21:45 Ur Specific [place] 1.010 (1.005-1.030) 07/11/19 21:45 Glucose (UA)(Auto) Negative (NEG) 07/11/19 21:45 Urine Ketones Negative (NEG) 07/11/19 21:45 Urine Blood Negative (NEG) 07/11/19 21:45 Urine Nitrite Negative (NEG) 07/11/19 21:45 Urine Bilirubin Negative (NEG) 07/11/19 21:45 Urine Urobilinogen 1.0 mg/dL (0.2-1.0) 07/11/19 21:45 Ur Leukocyte Esterase Negative (NEG) 07/11/19 21:45 Urine Total Protein Negative (NEG) 07/11/19 21:45 Assessment & Plan - Problems (Diagnosis) (1) Acute on chronic systolic CHF (congestive heart failure) Current Visit: Yes Status: Acute (2) Vertigo Current Visit: Yes Status: Acute (3) Acute worsening of stage 3 chronic kidney disease Current Visit: No Status: Acute (4) Benign prostatic hypertrophy without outflow obstruction Current Visit: No Status: Acute (5) Carotid artery occlusion Current Visit: No Status: Acute (6) Hypertensive disorder, systemic arterial Current Visit: No Status: Acute (7) Acute respiratory failure with hypoxia Current Visit: Yes Status: Acute Plan: Troponin trended flat indicates demand ischemia, no ACS. CT head negative for acute CVA. Cannot do MRI due to presence of pacemaker. I believe patient is at baseline and compensated for CHF. Will discontinue IV Lasix and resume home maintenance lasix dose. Nephrology consult Continue to hold Aldactone. Blood pressure has improved. Resume metoprolol Consult to cardiology requested. Continue amiodarone for AFib and history of V-tach. Eliquis dose reduced given worsening renal function. Continue Plavix No aspirin at discharge Will need home O2 as his oxygen saturation dropped discuss with cardiology and nephrology the patient may need an AICD possible Dc home if cleared by consultants and oxygen is arranged Time Spent Managing Pts Care (In Minutes): 45
--- NOTE | 2019-07-13 14:09 | PN ---
Patient was admitted to Dr. Bone for congestive heart failure and possible CVA. Has been seen by Dr Jade Mann since he has been here. Mr. Varghese is rather very complicated, has had a history of ventricular tachycardia, atrial fibrilla tion, coronary artery disease, status post recent bypass surgery. He had a pacemaker and ablation, b ut no defibrillator, although his ejection fraction is very low. It was 19% yesterday. He came in w ith possible CVA, but had a negative CT of his head. No cardiac complaint. 98% O2 saturation on 2 L . Main issue is anemia with hemoglobin of 9.2. His creatinine is 3.84. Renal is following. Possib le hemodialysis. Carotid Doppler showed a 50% to 60% bilateral stenosis. I am going to check in det ail to see if Mr. Varghese is a candidate for defibrillator. Discussed his case with Nephrology, but from my standpoint, he can go home on his present regimen including amiodarone, aspirin, Eliquis, Lip itor, Zetia, Pepcid, Lasix 40 mg daily, Reglan, and Protonix. I will discuss the case further with Hilton Bone. I prefer actually that he continues Plavix for 6 months without any aspirin and then at 6 months, which switch from Plavix back to aspirin. GIO/DAWIT Voice ID: [id number] Report ID: [id number]
--- NOTE | 2019-07-13 14:59 | P.CNS ---
Date of Consult: 07/13/19 Reason for Consult: YUDITH/ CKD Requesting Physician: Arnav Bone Chief Complaint: Dizziness, left-sided weakness History of Present Illness: 73-year-old gentleman with a history of recent CABG about 1 month ago, was brought to the emergency department due to a sudden episode of dizziness and left-sided weakness. According to the patient left leg gave way. She is sat him on a chair after that but patient was leaning towards the left. Patient was brought to the emergency department where chest x-ray is demonstrating pulmonary edema. His serum creatinine is elevated to 4. BNP is markedly elevated. Troponin is mildly elevated. CT head has not been performed yet. EKG demonstrated paced rhythm. Noted patient was hospitalized a few days ago for CHF exacerbation. His echocardiogram showed an ejection fraction of 15%. Patient is admitted for further management. 17:35 This 73 yrs old Male presents to ER via EMS with complaints of dizziness, [id number] 17:35 The patient presents with lightheadedness, sense of spinning. Onset: The tw4 symptoms/episode began/occurred today. Context: occurred outdoors, occurred while the patient was walking. Modifying factors: The symptoms are alleviated by nothing, the symptoms are aggravated by movement of head, standing up, changing position. Associated signs and symptoms: Pertinent positives: nausea, vomiting, Pertinent negatives: abdominal pain, agitation, ataxia, blurred vision, chest pain, combativeness, confusion, diaphoresis, focal weakness, head injury, headache. The patient has not experienced similar symptoms in the past. Allergies codeine Adverse Reaction (Mild, Verified 07/11/19 22:10) Nausea/Vomiting Home medications list reviewed: Yes Home Medications: Amiodarone HCl [Cordarone*] 200 mg PO DAILY 06/29/19 Apixaban [Eliquis] 5 mg PO BID 06/29/19 Atorvastatin Calcium [Lipitor] 80 mg PO BEDTIME 06/29/19 Cholecalciferol (Vitamin D3) [Vitamin D3] 2,000 unit PO DAILY 06/29/19 Clopidogrel Bisulfate [Plavix] 75 mg PO DAILY 06/29/19 Esomeprazole Magnesium 40 mg PO DAILY 06/29/19 Ezetimibe 10 mg PO BEDTIME 06/29/19 Famotidine 10 mg PO BEDTIME 06/29/19 Folic Acid 0.4 mg PO DAILY 06/29/19 Metoclopramide [Reglan*] 10 mg PO TID 06/29/19 Metoprolol Tartrate 25 mg PO BID 06/29/19 Nitroglycerin [Nitrostat*] 0.4 mg SL SEECOM 06/29/19 [place]-3/Dha/Epa/Fish Oil [Fish Oil 1,000 mg Softgel] 2 each PO DAILY 06/29/19 Tamsulosin [Flomax*] 2 cap PO DAILY 06/29/19 Trazodone [Desyrel*] 50 mg PO BEDTIME 06/29/19 Aspirin [Aspirin EC 81 MG] 81 mg PO DAILY 06/30/19 Calcitrol [Rocaltrol*] 0.5 mcg PO DAILY 07/12/19 Furosemide [Lasix] 40 mg PO DAILY 07/12/19 Sertraline HCl 1 tab PO DAILY 07/12/19 Spironolactone 50 mg PO DAILY 07/12/19 - Past Medical/Surgical History Diabetic: No -: HTN -: BPH -: CAD, [place], Stent to the heart, Cardiology-Dr. Garber -: Carotid Occlusive Disease, Stent -: Renal Artery Stenosis, Stent -: Hyperlipidemia -: History of TIA -: Tobacco abuse -: Insomnia -: Carotid stent placed -: Heart stents placed -: Renal artery stent -: bilateral ankle sx Psychosocial/ Personal History: -31 years, Children-3, Works-[employer] site [employer], [employer] - Family History Mother Medical History: Hypertension, Kidney disease Father Medical History: Heart disease, Hypertension, Kidney disease Notes: hx: HD Sister Medical History: Diabetes - Social History Smoking Status: Current every day smoker Alcohol use: Yes CD- Drugs: No Caffeine use: Yes Place of Residence: Home Review of Systems 10-point ROS is otherwise unremarkable General: Weakness Respiratory: SOB with Excertion Cardiovascular: Edema Physical Examination Temp Pulse Resp BP Pulse Ox 97.5 F 80 18 134/78 98 07/13/19 11:51 07/13/19 11:51 07/13/19 11:51 07/13/19 11:51 07/13/19 11:51 General: Oriented x3, Cooperative HEENT: Atraumatic, Normocephalic, Mucous membr. moist/pink Neck: Supple, JVD distended Respiratory: Clear to auscultation bilaterally Cardiovascular: No edema, Regular rate/rhythm, No rubs Gastrointestinal: Soft and benign, Non-distended, No guarding Musculoskeletal: No clubbing, No contractures Integumentary: No rashes, No cyanosis Neurological: Normal speech Blood work reviewed in the chart. Imagings Data: EXAM DESCRIPTION: RAD - Chest Single View - 07/11/2019 2:58 pm CLINICAL HISTORY: PAIN COMPARISON: Chest Pa And Lat (2 Views) dated 07/02/2019; Chest Single View dated 06/30/2019 TECHNIQUE: AP portable chest image was obtained 07/11/2019 2:58 pm . FINDINGS: Lungs are underinflated. Prominent interstitial pattern seen. Scattered alveolar opacities are present in the mid and lower left lung field. Significant cardiomegaly is present. Vascular engorgement is seen. Pacemaker is in place. Sternotomy wires in place. Small pleural effusions suspected on the right. No acute bony abnormality seen. No acute aortic findings suspected. IMPRESSION: Moderate severity CHF/ volume overload pattern. Conclusions/Impression: A/ YUDITH likely CRS. Hypocalcemia. CKD IV. HTN with CKD/ CHF. Systolic CHF, A/C. BPH with LUTS. Anemia in CKD. Moderate malnutrition. P/ Continue current POC and Medications. Continue diuresis. Low sodium diet. Restart home medications as indicated. No NSAIDs. AM labs. Daily weight. Thank you kindly for the consultation.
[2019-07-13] MEDS: EZETIMIBE 10 MG TAB PO SCH (21:45)
[2019-07-13] MEDS: ATORVASTATIN 80 MG TAB PO SCH (21:45)
[2019-07-13] MEDS: FAMOTIDINE 20 MG TAB PO SCH (21:46)
[2019-07-13] MEDS: TRAZODONE 50 MG TABLET PO SCH (21:46)
[2019-07-14 06:49] LABS: Absolute Lymphocytes (CBC) 0.9 K/uL (0.7-4.9); Basophils % 0.9 % (0-1.3); Hematocrit 27.4 % (39.6-49.0); Lymphocytes % 21.9 % (15.3-44.8); MPV 8.4 fL (7.6-11.3); RBC Red Blood Cell Count 2.98 M/uL (4.33-5.43)
[2019-07-14 07:12] LABS: Potassium 4.1 mmol/L (3.5-5.1)
[2019-07-14] MEDS: ASPIRIN EC 81 MG TAB PO SCH (09:00)
[2019-07-14] MEDS: APIXABAN 2.5 MG TABLET PO SCH (10:37)
[2019-07-14] MEDS: TAMSULOSIN 0.4 MG SR CAP PO SCH (10:37)
[2019-07-14] MEDS: FOLIC ACID 1 MG TABLET PO SCH (10:37)
[2019-07-14] MEDS: DOCOSAHEXANOIC AC/EPA 1000 MG PO SCH (10:37)
[2019-07-14] MEDS: VITAMIN D 1000 UNIT TAB PO SCH (10:38)
[2019-07-14] MEDS: METOPROLOL TAR 25 MG TAB PO SCH (10:38)
[2019-07-14] MEDS: CALCITROL 0.25 MCG CAP PO SCH (10:38)
[2019-07-14] MEDS: PANTOPRAZOLE 40MG TABLET PO SCH (10:38)
[2019-07-14] MEDS: FUROSEMIDE 40 MG TABLET PO SCH (10:38)
[2019-07-14] MEDS: AMIODARONE HCL 200 MG TAB PO SCH (10:38)
[2019-07-14] MEDS: CLOPIDOGREL 75 MG TABLET PO SCH (10:38)
[2019-07-14] MEDS: METOCLOPRAMIDE 5 MG TAB PO SCH (10:38)
[2019-07-14] MEDS: SERTRALINE HCL 50 MG TAB PO SCH (10:39)
[2019-07-14 10:50] VITALS: O2SAT 94
--- NOTE | 2019-07-14 11:42 | P.DS ---
Admission Date: 07/11/19 Discharge Date: 07/14/19 Disposition: ROUTINE DISCHARGE Discharge Condition: FAIR Reason for Admission: Dizziness, left-sided weakness - Problems (1) Acute on chronic systolic CHF (congestive heart failure) Current Visit: Yes Status: Acute (2) Vertigo Current Visit: Yes Status: Acute (3) Acute worsening of stage 3 chronic kidney disease Current Visit: No Status: Acute (4) Benign prostatic hypertrophy without outflow obstruction Current Visit: No Status: Acute (5) Carotid artery occlusion Current Visit: No Status: Acute (6) Hypertensive disorder, systemic arterial Current Visit: No Status: Acute (7) Acute respiratory failure with hypoxia Current Visit: Yes Status: Acute Brief History of Present Illness: 73-year-old gentleman with a history of recent CABG about 1 month ago, was brought to the emergency department due to a sudden episode of dizziness and left-sided weakness. According to the patient left leg gave way. She is sat him on a chair after that but patient was leaning towards the left. Patient was brought to the emergency department where chest x-ray is demonstrating pulmonary edema. His serum creatinine is elevated to 4. BNP is markedly elevated. Troponin is mildly elevated. CT head has not been performed yet. EKG demonstrated paced rhythm. Noted patient was hospitalized a few days ago for CHF exacerbation. His echocardiogram showed an ejection fraction of 15%. Patient is admitted for further management. Hospital Course: Weakness pressure was admitted and was monitor under telemetry , Troponin trended flat indicates demand ischemia, no ACS. CT head negative for acute CVA. Cannot do MRI due to presence of pacemaker. He was started on IV lasix Will discontinue IV Lasix and resume home maintenance lasix dose. Nephrology consulted antihypertensives titrated Cardiology was consulted . Continue amiodarone for AFib and history of V-tach. Eliquis dose reduced given worsening renal function. Continue Plavix No aspirin at discharge Will need home O2 as his oxygen saturation dropped discuss with cardiology and nephrology the patient may need an AICD DC home if cleared by consultants and oxygen is arranged Vital Signs/Physical Exam: Temp Pulse Resp BP Pulse Ox 97.1 F 80 24 H 144/82 H 97 07/14/19 08:00 07/14/19 08:00 07/14/19 08:00 07/14/19 10:38 07/14/19 08:00 General: Alert, In no apparent distress, Oriented x3 HEENT: Atraumatic, Normocephalic Neck: Supple Respiratory: Clear to auscultation bilaterally, Normal air movement Cardiovascular: Normal pulses, Regular rate/rhythm Capillary refill: <2 Seconds Gastrointestinal: Soft and benign, W/out hepatosplenomegaly Musculoskeletal: No clubbing, No swelling Integumentary: No rashes Neurological: Normal speech, Normal strength at 5/5 x4 extr Lymphatics: No axilla or inguinal lymphadenopathy External genitalia: Deferred Rectal: Deferred Laboratory Data at Discharge: WBC 4.0 K/uL (4.3-10.9) L D 07/14/19 05:46 Hgb 8.8 g/dL (13.6-17.9) L 07/14/19 05:46 Hct 27.4 % (39.6-49.0) L 07/14/19 05:46 Plt Count 267 K/uL (152-406) 07/14/19 05:46 PT 26.8 SECONDS (9.5-12.5) H 07/12/19 05:18 INR 2.35 07/12/19 05:18 Sodium 137 mmol/L (136-145) 07/14/19 05:46 Potassium 4.1 mmol/L (3.5-5.1) 07/14/19 05:46 BUN 42 mg/dL (7-18) H 07/14/19 05:46 Creatinine 3.52 mg/dL (0.55-1.3) H 07/14/19 05:46 Glucose 100 mg/dL (74-106) 07/14/19 05:46 Magnesium 2.6 mg/dL (1.8-2.4) H D 07/11/19 15:32 Total Bilirubin 0.7 mg/dL (0.2-1.0) 07/12/19 05:18 AST 20 U/L (15-37) 07/12/19 05:18 ALT 26 U/L (12-78) 07/12/19 05:18 Alkaline Phosphatase 175 U/L (45-117) H 07/12/19 05:18 Troponin I 0.10 ng/mL (0.0-0.045) H 07/12/19 00:52 Home Medications: Amiodarone HCl [Cordarone*] 200 mg PO DAILY 06/29/19 Atorvastatin Calcium [Lipitor] 80 mg PO BEDTIME 06/29/19 Cholecalciferol (Vitamin D3) [Vitamin D3] 2,000 unit PO DAILY 06/29/19 Clopidogrel Bisulfate [Plavix] 75 mg PO DAILY 06/29/19 Esomeprazole Magnesium 40 mg PO DAILY 06/29/19 Ezetimibe 10 mg PO BEDTIME 06/29/19 Famotidine 10 mg PO BEDTIME 06/29/19 Folic Acid 0.4 mg PO DAILY 06/29/19 Metoclopramide [Reglan*] 10 mg PO TID 06/29/19 Metoprolol Tartrate 25 mg PO BID 06/29/19 Nitroglycerin [Nitrostat*] 0.4 mg SL SEECOM 06/29/19 [place]-3/Dha/Epa/Fish Oil [Fish Oil 1,000 mg Softgel] 2 each PO DAILY 06/29/19 Tamsulosin [Flomax*] 2 cap PO DAILY 06/29/19 Trazodone [Desyrel*] 50 mg PO BEDTIME 06/29/19 Calcitrol [Rocaltrol*] 0.5 mcg PO DAILY 07/12/19 Furosemide [Lasix] 40 mg PO DAILY 07/12/19 Sertraline HCl 1 tab PO DAILY 07/12/19 Apixaban [Eliquis *] 2.5 mg PO BID #60 tablet 07/14/19 New Medications: Apixaban [Eliquis *] 2.5 mg PO BID #60 tablet Diet: AHA Activity: Ad wandy Followup: John Garber MD [ACTIVE - CAN ADMIT] - Rainer Morales DO [ACTIVE - CAN ADMIT] - Time spent managing pt's care (in minutes): 39
[2019-07-14 12:03] VITALS: BP 139/81; TEMP 97.2
--- NOTE | 2019-07-14 16:42 | P.PN ---
Date of Service: 07/14/19 Vital Signs Temp Pulse Resp BP Pulse Ox 97.2 F 81 24 H 139/81 99 07/14/19 12:00 07/14/19 12:00 07/14/19 12:00 07/14/19 12:00 07/14/19 12:00 Assessment/ Plan: Nephrology Feeling better today. CPS improved without CP or SOB. No acute events overnight. Vitals, medications, blood work and imaging reviewed in the chart. General: Oriented x3, Cooperative HEENT: Atraumatic, Normocephalic, Mucous membr. moist/pink Neck: Supple, JVD distended Respiratory: Clear to auscultation bilaterally Cardiovascular: No edema, Regular rate/rhythm, No rubs Gastrointestinal: Soft and benign, Non-distended, No guarding Musculoskeletal: No clubbing, No contractures Integumentary: No rashes, No cyanosis Neurological: Normal speech Blood work reviewed in the chart. Imagings Data: EXAM DESCRIPTION: RAD - Chest Single View - 07/11/2019 2:58 pm CLINICAL HISTORY: PAIN COMPARISON: Chest Pa And Lat (2 Views) dated 07/02/2019; Chest Single View dated 06/30/2019 TECHNIQUE: AP portable chest image was obtained 07/11/2019 2:58 pm . FINDINGS: Lungs are underinflated. Prominent interstitial pattern seen. Scattered alveolar opacities are present in the mid and lower left lung field. Significant cardiomegaly is present. Vascular engorgement is seen. Pacemaker is in place. Sternotomy wires in place. Small pleural effusions suspected on the right. No acute bony abnormality seen. No acute aortic findings suspected. IMPRESSION: Moderate severity CHF/ volume overload pattern. Conclusions/Impression: A/ YUDITH likely CRS. Hypocalcemia. CKD IV. HTN with CKD/ CHF. Systolic CHF, A/C. BPH with LUTS. Anemia in CKD. Moderate malnutrition. P/ Continue current POC and Medications. Continue diuresis. Low sodium diet. Plan for Oxygen at home. Counseled regarding CKD and possible HD in the future. No NSAIDs. AM labs. Daily weight. Greater than 25 min patient care.
== END 2019-07-14 14:30 | disposition home health service (06) | DRG 291 ==
LOC: ER 14:29 → ERHOLD 18:29 → 4TH 20:35
PROVIDERS: ADMIT Internal Medicine; ATTEND Family Medicine
DX: I13.0 Hypertensive heart and chronic kidney disease with heart failure and stage 1 through stage 4 chronic kidney disease, or unspecified chronic kidney disease (principal); I50.23 Acute on chronic systolic (congestive) heart failure; J96.01 Acute respiratory failure with hypoxia; N18.4 Chronic kidney disease, stage 4 (severe); N17.9 Acute kidney failure, unspecified; G45.9 Transient cerebral ischemic attack, unspecified; G81.94 Hemiplegia, unspecified affecting left nondominant side; I48.91 Unspecified atrial fibrillation; D63.1 Anemia in chronic kidney disease; E78.5 Hyperlipidemia, unspecified; I25.10 Atherosclerotic heart disease of native coronary artery without angina pectoris; N40.0 Benign prostatic hyperplasia without lower urinary tract symptoms; E83.51 Hypocalcemia; Z95.1 Presence of aortocoronary bypass graft; Z79.01 Long term (current) use of anticoagulants
CPT/HCPCS: 36415; 70450; 71045; 80048; 80053; 80076; 81003; 83735; 83880; 84484; 85025; 85610; 93005; 93306; 93880; 94760; 96374; 96375; 97110; 97112; 97116; 97161; 99285; J1940; J2550; J8597

== ENCOUNTER 2019-09-05 12:40 | Inpatient (IN) | payer OTHER ==
--- OUTSIDE RECORDS SUMMARY | 2019-09-05 12:52 | XMS REPORT ---
:1945 Author Organization [facility] t Address [address] [place] [address] Dr. Dominguez [address] [place] [id number] Care Team Providers Name Role Phone ISAC LAWSON Unavailable Unavailable AFIA, P. Unavailable Unavailable PETER, P. Unavailable Unavailable Problems This patient has no known problems. Allergies, Adverse Reactions, Alerts This patient has no known allergies or adverse reactions. Medications This patient has no known medications. Results Test Description Test Time Test Comments Text Results Atomic Results Result Comments B-TYPE NATRIURETIC FACTOR (BNP) 2019-07-18 16:56:00 Test Item Value Reference Range Comments B-TYPE NATRIURETIC PEPTIDE (BEAKER) (test code = 700) 4173 pg/mL 0-100 HEMOGLOBIN [id number] 16:34:00 Test Item Value Reference Range Comments HEMOGLOBIN A1C (BEAKER) (test code = 368) 5.3 % 4.3-6. 1 TSH/FREE T4 IF [id number] 15:39:00 Test Item Value Reference Range Comments THYROID STIMULATING HORMONE (BEAKER) (test code 4.71 uIU/mL 0.35-4.94 = 772) Systems Testing Laboratory Technician ID - [id number] 15:23:00 Test Item Value Reference Range Comments PREALBUMIN (BEAKER) (test code = 586) 19 mg/dL 14-45 Systems Testing Laboratory Technician ID - BSBASIC METABOLIC [id number] 14:54:00 Test Item Value Reference Range Comments SODIUM (BEAKER) (test 134 meq/L 136-145 code = 381) POTASSIUM (BEAKER) (test 4.0 meq/L 3.5-5.1 code = 379) CHLORIDE (BEAKER) (test 98 meq/L 98-107 code = 382) CO2 (BEAKER) (test code = 26 meq/L 22-29 355) BLOOD UREA NITROGEN 35 mg/dL 7-21 (BEAKER) (test code = 354) CREATININE (BEAKER) (test 3.59 mg/dL 0.57-1.25 code = 358) GLUCOSE RANDOM (BEAKER) 116 mg/dL 70-105 (test code = 652) CALCIUM (BEAKER) (test 9.2 mg/dL 8.4-10.2 code = 697) EGFR (BEAKER) (test code 17 mL/min/1.73 sq m EST IMATED GFR IS NOT = 1092) ACCURATE CREA TININE CLEARANCE IN PRE DICTING GLOMERULAR FILTR ATION RATE. ESTIMATED GFR IS NOT APPLICABLE F OR DIALYSIS PATIENT S. Systems Testing Laboratory Technician ID - NTPURIC [id number] 14:50:00 Test Item Value Reference Range Comments URIC ACID (BEAKER) (test code = 773) 11.0 mg/dL 2.6-7.2 Systems Testing Laboratory Technician ID - [id number] 14:50:00 Test Item Value Reference Range Comments MAGNESIUM (BEAKER) (test code = 627) 2.1 mg/dL 1.6-2.6 Systems Testing Laboratory Technician ID - NTPLIPID [id number] 14:50:00 Test Item Value Reference Range Comments TRIGLYCERIDES (BEAKER) (test code = 540) 92 mg/dL CHOLESTEROL (BEAKER) (test code = 631) 110 mg/dL HDL CHOLESTEROL (BEAKER) (test code = 976) 49 mg/dL LDL CHOLESTEROL CALCULATED (BEAKER) (test code = 43 mg/dL 633) Triglyceride Reference Range: Low Risk <150 Borderline 150-199 High Risk 200-499 Very High Risk >=500Cholesterol Reference Range: Low Risk <200 Borderline 200-239 High Risk >240HDL Cholesterol Reference Range: Low Risk >=60 High Risk <40LDL Cholesterol Reference Range: Optimal <100 Near Optimal 100-129 Borderline 130-159 High 160-189 Very High >=190 Systems Testing Laboratory Technician ID - NTPHEPATIC FUNCTION [id number] 14:50:00 Test Item Value Reference Range Comments TOTAL PROTEIN (BEAKER) (test code = 770) 7.1 gm/dL 6.0-8.3 ALBUMIN (BEAKER) (test code = 1145) 3.6 g/dL 3.5-5.0 BILIRUBIN TOTAL (BEAKER) (test code = 377) 0.8 mg/dL 0.2-1 .2 BILIRUBIN DIRECT (BEAKER) (test code = 706) 0.4 mg/dL 0.1- 0.5 ALKALINE PHOSPHATASE (BEAKER) (test code = 346) 165 U/L 40-150 AST (SGOT) (BEAKER) (test code = 353) 19 U/L 5-34 ALT (SGPT) (BEAKER) (test code = 347) 17 U/L 6-55 Systems Testing Laboratory Technician ID - NTPPROTHROMBIN [id number] 14:24:00 Test Item Value Reference Range Comments PROTIME (BEAKER) (test code = 759) 19.3 seconds 11.9-14.2 INR (BEAKER) (test code = 370) 1.7 <=5.9 Effective 10/12/2018: PT Reference Range ChangeNew: 11.9-14.2 Previous: 11.7- 14.7RECOMMENDED COUMADIN/WARFARIN INR THERAPY RANGESSTANDARD DOSE: 2.0-3.0 Includes: PROPHYLAXIS for venous thrombosis, systemic embolization; TREATMENT for venous thrombosis and/or pulmonary embolus.HIGH RISK: Target INR is2.5-3.5 for patients wiht mechanical heart valves.CBC W/PLT COUNT & AUTO [id number] 14:20:00 Test Item Value Reference Range Comments WHITE BLOOD CELL COUNT (BEAKER) (test code = 3.9 K/ L 3.5 -10.5 775) RED BLOOD CELL COUNT (BEAKER) (test code = 761) 3.32 M/ L 4.63-6.08 HEMOGLOBIN (BEAKER) (test code = 410) 9.6 GM/DL 13.7-17.5 HEMATOCRIT (BEAKER) (test code = 411) 31.0 % 40.1-51.0 MEAN CORPUSCULAR VOLUME (BEAKER) (test code = 93.4 fL 79 .0-92.2 753) MEAN CORPUSCULAR HEMOGLOBIN (BEAKER) (test code 28.9 pg 25.7-32.2 = 751) MEAN CORPUSCULAR HEMOGLOBIN CONC (BEAKER) (test 31.0 GM/DL 32.3-36.5 code = 752) RED CELL DISTRIBUTION WIDTH (BEAKER) (test code 16.9 % 11.6-14.4 = 412) PLATELET COUNT (BEAKER) (test code = 756) 289 K/CU MM 150-45 0 MEAN PLATELET VOLUME (BEAKER) (test code = 754) 9.7 fL 9.4-12.4 NUCLEATED RED BLOOD CELLS (BEAKER) (test code = 0 /100 WBC 0-0 413) NEUTROPHILS RELATIVE PERCENT (BEAKER) (test code 60 % = 429) LYMPHOCYTES RELATIVE PERCENT (BEAKER) (test code 22 % = 430) MONOCYTES RELATIVE PERCENT (BEAKER) (test code = 14 % 431) EOSINOPHILS RELATIVE PERCENT (BEAKER) (test code 3 % = 432) BASOPHILS RELATIVE PERCENT (BEAKER) (test code = 1 % 437) NEUTROPHILS ABSOLUTE COUNT (BEAKER) (test code = 2.32 K/ L 1.78-5.38 670) LYMPHOCYTES ABSOLUTE COUNT (BEAKER) (test code = 0.86 K/ L 1.32-3.57 414) MONOCYTES ABSOLUTE COUNT (BEAKER) (test code = 0.52 K/ L 0 .30-0.82 415) EOSINOPHILS ABSOLUTE COUNT (BEAKER) (test code = 0.13 K/ L 0.04-0.54 416) BASOPHILS ABSOLUTE COUNT (BEAKER) (test code = 0.02 K/ L 0 .01-0.08 417) IMMATURE GRANULOCYTES-RELATIVE PERCENT (BEAKER) 0 % 0-1 (test code = 2801) RAD, CHEST, 1 VIEW, NON [id number] 10:50:00Reason for exam:->s/p ACBShould this be performed at the bedside?->YesFINAL REPORT TECHNIQUE: Frontal view of the chest. INDICATION: s/p ACB COMPARI SON:Prior day. IMPRESSION:Lines and hardware: Stable.Heart and mediastinum: Stable.Lungs and pleura:No focal airspace consolidation. Right basilar atelectasis with small pleural effusion. Pulmonary vascular congestion with interstitial edema. No pneumothorax.Soft tissues and bones: No acute abnormalit y. Signed: Bolivar Miranda MDReport Verified Date/Time: 06/24/2019 10:50:49 Reading Location: [address] Consult Reading Room BASIC METABOLIC PANEL 2019-06-24 06:59:00 Test Item Value Reference Range Comments SODIUM (BEAKER) (test 135 meq/L 136-145 code = 381) POTASSIUM (BEAKER) (test 4.5 meq/L 3.5-5.1 code = 379) CHLORIDE (BEAKER) (test 108 meq/L 98-107 code = 382) CO2 (BEAKER) (test code = 20 meq/L 22-29 355) BLOOD UREA NITROGEN 45 mg/dL 7-21 (BEAKER) (test code = 354) CREATININE (BEAKER) (test 3.16 mg/dL 0.57-1.25 code = 358) GLUCOSE RANDOM (BEAKER) 89 mg/dL 70-105 (test code = 652) CALCIUM (BEAKER) (test 8.2 mg/dL 8.4-10.2 code = 697) EGFR (BEAKER) (test code 20 mL/min/1.73 sq m EST IMATED GFR IS NOT = 1092) ACCURATE CREA TININE CLEARANCE IN PRE DICTING GLOMERULAR FILTR ATION RATE. ESTIMATED GFR IS NOT APPLICABLE F OR DIALYSIS PATIENT S. Systems Testing Laboratory Technician ID - MARISABEL [facility]BC W/PLT COUNT & AUTO [id number] 05:48:00 Test Item Value Reference Range Comments WHITE BLOOD CELL COUNT (BEAKER) (test code = 4.6 K/ L 3.5 -10.5 775) RED BLOOD CELL COUNT (BEAKER) (test code = 761) 2.67 M/ L 4.63-6.08 HEMOGLOBIN (BEAKER) (test code = 410) 8.0 GM/DL 13.7-17.5 HEMATOCRIT (BEAKER) (test code = 411) 25.7 % 40.1-51.0 MEAN CORPUSCULAR VOLUME (BEAKER) (test code = 96.3 fL 79 .0-92.2 753) MEAN CORPUSCULAR HEMOGLOBIN (BEAKER) (test code 30.0 pg 25.7-32.2 = 751) MEAN CORPUSCULAR HEMOGLOBIN CONC (BEAKER) (test 31.1 GM/DL 32.3-36.5 code = 752) RED CELL DISTRIBUTION WIDTH (BEAKER) (test code 18.4 % 11.6-14.4 = 412) PLATELET COUNT (BEAKER) (test code = 756) 353 K/CU MM 150-45 0 MEAN PLATELET VOLUME (BEAKER) (test code = 754) 9.3 fL 9.4-12.4 NUCLEATED RED BLOOD CELLS (BEAKER) (test code = 0 /100 WBC 0-0 413) NEUTROPHILS RELATIVE PERCENT (BEAKER) (test code 62 % = 429) LYMPHOCYTES RELATIVE PERCENT (BEAKER) (test code 19 % = 430) MONOCYTES RELATIVE PERCENT (BEAKER) (test code = 10 % 431) EOSINOPHILS RELATIVE PERCENT (BEAKER) (test code 8 % = 432) BASOPHILS RELATIVE PERCENT (BEAKER) (test code = 1 % 437) NEUTROPHILS ABSOLUTE COUNT (BEAKER) (test code = 2.83 K/ L 1.78-5.38 670) LYMPHOCYTES ABSOLUTE COUNT (BEAKER) (test code = 0.88 K/ L 1.32-3.57 414) MONOCYTES ABSOLUTE COUNT (BEAKER) (test code = 0.47 K/ L 0 .30-0.82 415) EOSINOPHILS ABSOLUTE COUNT (BEAKER) (test code = 0.35 K/ L 0.04-0.54 416) BASOPHILS ABSOLUTE COUNT (BEAKER) (test code = 0.04 K/ L 0 .01-0.08 417) IMMATURE GRANULOCYTES-RELATIVE PERCENT (BEAKER) 0 % 0-1 (test code = 2801) [id number] 15:09:00 Test Item Value Reference Range Comments ACTIVATED CLOTTING TIME 340 sec Referenc e Range: 74-137 (BEAKER) (test code = 441) secon ds, Baseline/TESTED AT [place] [id number] 14:51:00 Test Item Value Reference Range Comments ACTIVATED CLOTTING TIME 296 sec Referenc e Range: 74-137 (BEAKER) (test code = 441) secon ds, Baseline/TESTED AT [address] [address] [id number] 14:51:00 Test Item Value Reference Range Comments ACTIVATED CLOTTING TIME 208 sec Referenc e Range: 74-137 (BEAKER) (test code = 441) secon ds, Baseline/TESTED AT [address] [address] RAD, CHEST, 1 VIEW, NON [id number] 08:02:00Reason for exam:->s/p ACBShould this be performed [...] None. Signed: Marcella Burdick MDReport Verified Date/Time: 06/23/2019 08:02:27 ReadingLocation: [facility] Reading Room BASIC METABOLIC [id number] 07:14:00 Test Item Value Reference Range Comments SODIUM (BEAKER) (test 136 meq/L 136-145 code = 381) POTASSIUM (BEAKER) (test 4.5 meq/L 3.5-5.1 Specime n slightly code = 379) hemolyzed CHLORIDE (BEAKER) (test 109 meq/L 98-107 code = 382) CO2 (BEAKER) (test code = 19 meq/L 22-29 355) BLOOD UREA NITROGEN 50 mg/dL 7-21 (BEAKER) (test code = 354) CREATININE (BEAKER) (test 3.37 mg/dL 0.57-1.25 Specim en slightly code = 358) hemolyzed GLUCOSE RANDOM (BEAKER) 83 mg/dL 70-105 (test code = 652) CALCIUM (BEAKER) (test 8.1 mg/dL 8.4-10.2 code = 697) EGFR (BEAKER) (test code 18 mL/min/1.73 sq m EST IMATED GFR IS NOT = 1092) ACCURATE CREA TININE CLEARANCE IN PRE DICTING GLOMERULAR FILTR ATION RATE. ESTIMATED GFR IS NOT APPLICABLE F OR DIALYSIS PATIENT S. Systems Testing Laboratory Technician ID - MARISABEL [id number] 07:06:00 Test Item Value Reference Range Comments MAGNESIUM (BEAKER) (test code = 1.8 mg/dL 1.6-2.6 Specimen slightly hemolyzed 627) Systems Testing Laboratory Technician ID - MARISABEL [id number] 07:06:00 Test Item Value Reference Range Comments PHOSPHORUS (BEAKER) (test code 4.2 mg/dL 2.3-4.7 S pecimen slightly hemolyzed = 604) Systems Testing Laboratory Technician ID Sharmila PETIT [facility] W/PLT COUNT & AUTO [id number] 05:29:00 Test Item Value Reference Range Comments WHITE BLOOD CELL COUNT (BEAKER) (test code = 4.2 K/ L 3.5 -10.5 775) RED BLOOD CELL COUNT (BEAKER) (test code = 761) 2.64 M/ L 4.63-6.08 HEMOGLOBIN (BEAKER) (test code = 410) 8.1 GM/DL 13.7-17.5 HEMATOCRIT (BEAKER) (test code = 411) 25.3 % 40.1-51.0 MEAN CORPUSCULAR VOLUME (BEAKER) (test code = 95.8 fL 79 .0-92.2 753) MEAN CORPUSCULAR HEMOGLOBIN (BEAKER) (test code 30.7 pg 25.7-32.2 = 751) MEAN CORPUSCULAR HEMOGLOBIN CONC (BEAKER) (test 32.0 GM/DL 32.3-36.5 code = 752) RED CELL DISTRIBUTION WIDTH (BEAKER) (test code 18.2 % 11.6-14.4 = 412) PLATELET COUNT (BEAKER) (test code = 756) 388 K/CU MM 150-45 0 MEAN PLATELET VOLUME (BEAKER) (test code = 754) 9.5 fL 9.4-12.4 NUCLEATED RED BLOOD CELLS (BEAKER) (test code = 0 /100 WBC 0-0 413) NEUTROPHILS RELATIVE PERCENT (BEAKER) (test code 56 % = 429) LYMPHOCYTES RELATIVE PERCENT (BEAKER) (test code 24 % = 430) MONOCYTES RELATIVE PERCENT (BEAKER) (test code = 11 % 431) EOSINOPHILS RELATIVE PERCENT (BEAKER) (test code 8 % = 432) BASOPHILS RELATIVE PERCENT (BEAKER) (test code = 1 % 437) NEUTROPHILS ABSOLUTE COUNT (BEAKER) (test code = 2.34 K/ L 1.78-5.38 670) LYMPHOCYTES ABSOLUTE COUNT (BEAKER) (test code = 1.00 K/ L 1.32-3.57 414) MONOCYTES ABSOLUTE COUNT (BEAKER) (test code = 0.45 K/ L 0 .30-0.82 415) EOSINOPHILS ABSOLUTE COUNT (BEAKER) (test code = 0.35 K/ L 0.04-0.54 416) BASOPHILS ABSOLUTE COUNT (BEAKER) (test code = 0.03 K/ L 0 .01-0.08 417) IMMATURE GRANULOCYTES-RELATIVE PERCENT (BEAKER) 1 % 0-1 (test code = 2801) RAD, CHEST, 1 VIEW, NON [id number] 07:58:00Reason for exam:->s/p ACBShould this be performed [...] None. Signed: Marcella Burdick MDReport Verified Date/Time: 06/22/2019 07:58:10 [facility] Reading Room BASIC METABOLIC [id number] 07:27:00 Test Item Value Reference Range Comments SODIUM (BEAKER) (test 135 meq/L 136-145 code = 381) POTASSIUM (BEAKER) (test 4.6 meq/L 3.5-5.1 code = 379) CHLORIDE (BEAKER) (test 108 meq/L 98-107 code = 382) CO2 (BEAKER) (test code = 20 meq/L 22-29 355) BLOOD UREA NITROGEN 52 mg/dL 7-21 (BEAKER) (test code = 354) CREATININE (BEAKER) (test 3.37 mg/dL 0.57-1.25 code = 358) GLUCOSE RANDOM (BEAKER) 91 mg/dL 70-105 (test code = 652) CALCIUM (BEAKER) (test 8.3 mg/dL 8.4-10.2 code = 697) EGFR (BEAKER) (test code 18 mL/min/1.73 sq m EST IMATED GFR IS NOT = 1092) ACCURATE CREA TININE CLEARANCE IN PRE DICTING GLOMERULAR FILTR ATION RATE. ESTIMATED GFR IS NOT APPLICABLE F OR DIALYSIS PATIENT S. Systems Testing Laboratory Technician ID - [id number] 07:08:00 Test Item Value Reference Range Comments PHOSPHORUS (BEAKER) (test code = 604) 4.0 mg/dL 2.3-4.7 Systems Testing Laboratory Technician ID - [id number] 07:08:00 Test Item Value Reference Range Comments MAGNESIUM (BEAKER) (test code = 627) 2.0 mg/dL 1.6-2.6 Systems Testing Laboratory Technician ID - LMRAD, CHEST, 1 VIEW, NON [id number] 07:22:00Reason for exam:- >s/p ACBShould this be performed at the bedside?->YesFINAL REPORT RAD, CHEST, 1 VIEW, NON DEPT INDICATION: s/p ACB COMPARISON: Rafaelo r day's exam FINDINGS: Portable frontal view of the chest. IMPRESSION: Support Lines: A right PICC again noted to terminate in the subclavian region. Lungs and pleura: Unchanged interstitial and pleural opacities. No pneumothorax.Heart and mediastinum: Stable contours. Stable surgical changes. Stable pacer apparatus.Additional findings: None. Signed: JR Mckeon Robert MDReport Verified Date/Time: 06/21/2019 07:22:09 Reading Location: [address] Neuro Reading Room BASIC METABOLIC [id number] 06:23:00 Test Item Value Reference Range Comments SODIUM (BEAKER) (test 132 meq/L 136-145 code = 381) POTASSIUM (BEAKER) (test 4.6 meq/L 3.5-5.1 code = 379) CHLORIDE (BEAKER) (test 105 meq/L 98-107 code = 382) CO2 (BEAKER) (test code = 19 meq/L 22-29 355) BLOOD UREA NITROGEN 56 mg/dL 7-21 (BEAKER) (test code = 354) CREATININE (BEAKER) (test 3.25 mg/dL 0.57-1.25 code = 358) GLUCOSE RANDOM (BEAKER) 99 mg/dL 70-105 (test code = 652) CALCIUM (BEAKER) (test 8.3 mg/dL 8.4-10.2 code = 697) EGFR (BEAKER) (test code 19 mL/min/1.73 sq m EST IMATED GFR IS NOT = 1092) ACCURATE CREA TININE CLEARANCE IN PRE DICTING GLOMERULAR FILTR ATION RATE. ESTIMATED GFR IS NOT APPLICABLE F OR DIALYSIS PATIENT S. Systems Testing Laboratory Technician ID - [id number] 06:18:00 Test Item Value Reference Range Comments PHOSPHORUS (BEAKER) (test code = 604) 4.0 mg/dL 2.3-4.7 Systems Testing Laboratory Technician ID - [id number] 06:18:00 Test Item Value Reference Range Comments MAGNESIUM (BEAKER) (test code = 627) 2.0 mg/dL 1.6-2.6 Systems Testing Laboratory Technician ID - ASCBC W/PLT COUNT & AUTO [id number] 05:59:00 Test Item Value Reference Range Comments WHITE BLOOD CELL COUNT (BEAKER) (test code = 4.7 K/ L 3.5 -10.5 775) RED BLOOD CELL COUNT (BEAKER) (test code = 761) 2.70 M/ L 4.63-6.08 HEMOGLOBIN (BEAKER) (test code = 410) 8.1 GM/DL 13.7-17.5 HEMATOCRIT (BEAKER) (test code = 411) 25.2 % 40.1-51.0 MEAN CORPUSCULAR VOLUME (BEAKER) (test code = 93.3 fL 79 .0-92.2 753) MEAN CORPUSCULAR HEMOGLOBIN (BEAKER) (test code 30.0 pg 25.7-32.2 = 751) MEAN CORPUSCULAR HEMOGLOBIN CONC (BEAKER) (test 32.1 GM/DL 32.3-36.5 code = 752) RED CELL DISTRIBUTION WIDTH (BEAKER) (test code 17.7 % 11.6-14.4 = 412) PLATELET COUNT (BEAKER) (test code = 756) 380 K/CU MM 150-45 0 MEAN PLATELET VOLUME (BEAKER) (test code = 754) 9.7 fL 9.4-12.4 NUCLEATED RED BLOOD CELLS (BEAKER) (test code = 0 /100 WBC 0-0 413) NEUTROPHILS RELATIVE PERCENT (BEAKER) (test code 68 % = 429) LYMPHOCYTES RELATIVE PERCENT (BEAKER) (test code 16 % = 430) MONOCYTES RELATIVE PERCENT (BEAKER) (test code = 10 % 431) EOSINOPHILS RELATIVE PERCENT (BEAKER) (test code 6 % = 432) BASOPHILS RELATIVE PERCENT (BEAKER) (test code = 1 % 437) NEUTROPHILS ABSOLUTE COUNT (BEAKER) (test code = 3.14 K/ L 1.78-5.38 670) LYMPHOCYTES ABSOLUTE COUNT (BEAKER) (test code = 0.75 K/ L 1.32-3.57 414) MONOCYTES ABSOLUTE COUNT (BEAKER) (test code = 0.45 K/ L 0 .30-0.82 415) EOSINOPHILS ABSOLUTE COUNT (BEAKER) (test code = 0.26 K/ L 0.04-0.54 416) BASOPHILS ABSOLUTE COUNT (BEAKER) (test code = 0.03 K/ L 0 .01-0.08 417) IMMATURE GRANULOCYTES-RELATIVE PERCENT (BEAKER) 0 % 0-1 (test code = 2801) RAD, CHEST, 1 VIEW, NON [id number] 07:56:00Reason for exam:->s/p ACBShould this be performed [...] MDReport Verified Date/Time: 06/20/2019 07:56:57 Reading [facility] Reading Room CBC W/PLT COUNT & AUTO [id number] 06:26:00 Test Item Value Reference Range Comments WHITE BLOOD CELL COUNT (BEAKER) (test code = 4.3 K/ L 3.5 -10.5 775) RED BLOOD CELL COUNT (BEAKER) (test code = 761) 2.48 M/ L 4.63-6.08 HEMOGLOBIN (BEAKER) (test code = 410) 7.4 GM/DL 13.7-17.5 HEMATOCRIT (BEAKER) (test code = 411) 23.6 % 40.1-51.0 MEAN CORPUSCULAR VOLUME (BEAKER) (test code = 95.2 fL 79 .0-92.2 753) MEAN CORPUSCULAR HEMOGLOBIN (BEAKER) (test code 29.8 pg 25.7-32.2 = 751) MEAN CORPUSCULAR HEMOGLOBIN CONC (BEAKER) (test 31.4 GM/DL 32.3-36.5 code = 752) RED CELL DISTRIBUTION WIDTH (BEAKER) (test code 17.7 % 11.6-14.4 = 412) PLATELET COUNT (BEAKER) (test code = 756) 327 K/CU MM 150-45 0 MEAN PLATELET VOLUME (BEAKER) (test code = 754) 9.6 fL 9.4-12.4 NUCLEATED RED BLOOD CELLS (BEAKER) (test code = 0 /100 WBC 0-0 413) NEUTROPHILS RELATIVE PERCENT (BEAKER) (test code 62 % = 429) LYMPHOCYTES RELATIVE PERCENT (BEAKER) (test code 19 % = 430) MONOCYTES RELATIVE PERCENT (BEAKER) (test code = 12 % 431) EOSINOPHILS RELATIVE PERCENT (BEAKER) (test code 6 % = 432) BASOPHILS RELATIVE PERCENT (BEAKER) (test code = 1 % 437) NEUTROPHILS ABSOLUTE COUNT (BEAKER) (test code = 2.65 K/ L 1.78-5.38 670) LYMPHOCYTES ABSOLUTE COUNT (BEAKER) (test code = 0.79 K/ L 1.32-3.57 414) MONOCYTES ABSOLUTE COUNT (BEAKER) (test code = 0.51 K/ L 0 .30-0.82 415) EOSINOPHILS ABSOLUTE COUNT (BEAKER) (test code = 0.27 K/ L 0.04-0.54 416) BASOPHILS ABSOLUTE COUNT (BEAKER) (test code = 0.03 K/ L 0 .01-0.08 417) IMMATURE GRANULOCYTES-RELATIVE PERCENT (BEAKER) 1 % 0-1 (test code = 2801) BASIC METABOLIC [id number] 05:59:00 Test Item Value Reference Range Comments SODIUM (BEAKER) (test 133 meq/L 136-145 code = 381) POTASSIUM (BEAKER) (test 4.6 meq/L 3.5-5.1 code = 379) CHLORIDE (BEAKER) (test 105 meq/L 98-107 code = 382) CO2 (BEAKER) (test code = 21 meq/L 22-29 355) BLOOD UREA NITROGEN 55 mg/dL 7-21 (BEAKER) (test code = 354) CREATININE (BEAKER) (test 3.34 mg/dL 0.57-1.25 code = 358) GLUCOSE RANDOM (BEAKER) 91 mg/dL 70-105 (test code = 652) CALCIUM (BEAKER) (test 8.1 mg/dL 8.4-10.2 code = 697) EGFR (BEAKER) (test code 18 mL/min/1.73 sq m EST IMATED GFR IS NOT = 1092) ACCURATE CREA TININE CLEARANCE IN PRE DICTING GLOMERULAR FILTR ATION RATE. ESTIMATED GFR IS NOT APPLICABLE F OR DIALYSIS PATIENT S. Systems Testing Laboratory Technician ID - MARISABEL [id number] 05:56:00 Test Item Value Reference Range Comments PHOSPHORUS (BEAKER) (test code = 604) 4.0 mg/dL 2.3-4.7 Systems Testing Laboratory Technician ID - MARISABEL [id number] 05:56:00 Test Item Value Reference Range Comments MAGNESIUM (BEAKER) (test code = 627) 2.0 mg/dL 1.6-2.6 Systems Testing Laboratory Technician ID - MARISABEL MRAD, CHEST, 1 VIEW, NON [id number] 08:24:00Reason for exam:->s/p ACBShould this be performed [...] contours. Stable surgical changes.Additional findings: None. Signed: BayleeMarcella meza Verified Date/Time: 06/19/2019 08:24:44 Reading [facility] Reading Room BASIC METABOLIC PANEL 2019-06-19 07:44:00 Test Item Value Reference Range Comments SODIUM (BEAKER) (test 131 meq/L 136-145 code = 381) POTASSIUM (BEAKER) (test 4.5 meq/L 3.5-5.1 code = 379) CHLORIDE (BEAKER) (test 103 meq/L 98-107 code = 382) CO2 (BEAKER) (test code = 21 meq/L 22-29 355) BLOOD UREA NITROGEN 56 mg/dL 7-21 (BEAKER) (test code = 354) CREATININE (BEAKER) (test 3.37 mg/dL 0.57-1.25 code = 358) GLUCOSE RANDOM (BEAKER) 91 mg/dL 70-105 (test code = 652) CALCIUM (BEAKER) (test 8.1 mg/dL 8.4-10.2 code = 697) EGFR (BEAKER) (test code 18 mL/min/1.73 sq m EST IMATED GFR IS NOT = 1092) ACCURATE CREA TININE CLEARANCE IN PRE DICTING GLOMERULAR FILTR ATION RATE. ESTIMATED GFR IS NOT APPLICABLE F OR DIALYSIS PATIENT S. Systems Testing Laboratory Technician ID Sharmila PICKARD [id number] 07:43:00 Test Item Value Reference Range Comments PHOSPHORUS (BEAKER) (test code = 604) 4.3 mg/dL 2.3-4.7 Systems Testing Laboratory Technician ID Sharmila PICKARD [id number] 07:43:00 Test Item Value Reference Range Comments MAGNESIUM (BEAKER) (test code = 627) 2.1 mg/dL 1.6-2.6 Systems Testing Laboratory Technician ID Sharmila PICKARD FCBC W/PLT COUNT & AUTO [id number] 06:41:00 Test Item Value Reference Range Comments WHITE BLOOD CELL COUNT (BEAKER) (test code = 4.3 K/ L 3.5 -10.5 775) RED BLOOD CELL COUNT (BEAKER) (test code = 761) 2.58 M/ L 4.63-6.08 HEMOGLOBIN (BEAKER) (test code = 410) 7.6 GM/DL 13.7-17.5 HEMATOCRIT (BEAKER) (test code = 411) 24.0 % 40.1-51.0 MEAN CORPUSCULAR VOLUME (BEAKER) (test code = 93.0 fL 79 .0-92.2 753) MEAN CORPUSCULAR HEMOGLOBIN (BEAKER) (test code 29.5 pg 25.7-32.2 = 751) MEAN CORPUSCULAR HEMOGLOBIN CONC (BEAKER) (test 31.7 GM/DL 32.3-36.5 code = 752) RED CELL DISTRIBUTION WIDTH (BEAKER) (test code 17.7 % 11.6-14.4 = 412) PLATELET COUNT (BEAKER) (test code = 756) 328 K/CU MM 150-45 0 MEAN PLATELET VOLUME (BEAKER) (test code = 754) 9.8 fL 9.4-12.4 NUCLEATED RED BLOOD CELLS (BEAKER) (test code = 0 /100 WBC 0-0 413) NEUTROPHILS RELATIVE PERCENT (BEAKER) (test code 60 % = 429) LYMPHOCYTES RELATIVE PERCENT (BEAKER) (test code 19 % = 430) MONOCYTES RELATIVE PERCENT (BEAKER) (test code = 12 % 431) EOSINOPHILS RELATIVE PERCENT (BEAKER) (test code 7 % = 432) BASOPHILS RELATIVE PERCENT (BEAKER) (test code = 1 % 437) NEUTROPHILS ABSOLUTE COUNT (BEAKER) (test code = 2.57 K/ L 1.78-5.38 670) LYMPHOCYTES ABSOLUTE COUNT (BEAKER) (test code = 0.83 K/ L 1.32-3.57 414) MONOCYTES ABSOLUTE COUNT (BEAKER) (test code = 0.53 K/ L 0 .30-0.82 415) EOSINOPHILS ABSOLUTE COUNT (BEAKER) (test code = 0.29 K/ L 0.04-0.54 416) BASOPHILS ABSOLUTE COUNT (BEAKER) (test code = 0.03 K/ L 0 .01-0.08 417) IMMATURE GRANULOCYTES-RELATIVE PERCENT (BEAKER) 1 % 0-1 (test code = 2801) OXYGEN SATURATION, [id number] 06:39:00 Test Item Value Reference Range Comments O2 SATURATION (MEASURED) (BEAKER) (test code = 1455) 68.6 % CALCIUM, [id number] 06:39:00 Test Item Value Reference Range Comments CALCIUM IONIZED (BEAKER) (test code = 698) 1.13 mmol/L 1.12- 1.27 PH, BLOOD (BEAKER) (test code = 1810) 7.40 RAD, CHEST, 1 VIEW, NON [id number] 09:49:00Reason for exam:->s/p ACBShould this be performed at the bedside?->YesFINAL REPORT TECHNIQUE: Single view of the chest. COMPARISON: 06/17/2019 FINDINGS: Bilateral patchy interstitial and airspace opacities are stable. There are bilateral trace pleural effusions. No gross pneumothorax.No gross new lung parenchymal changes. Support lines and tubes are stable. IMPRESSION: 1. No significant interval change. Signed: Sarath Randhawa MDReport Verified Date/Time: 06/18/2019 09:49:04 Reading Location: [address] Transitional Reading Room BASIC METABOLIC [id number] 04:36:00 Test Item Value Reference Range Comments SODIUM (BEAKER) (test 129 meq/L 136-145 code = 381) POTASSIUM (BEAKER) (test 4.5 meq/L 3.5-5.1 code = 379) CHLORIDE (BEAKER) (test 101 meq/L 98-107 code = 382) CO2 (BEAKER) (test code = 19 meq/L 22-29 355) BLOOD UREA NITROGEN 51 mg/dL 7-21 (BEAKER) (test code = 354) CREATININE (BEAKER) (test 3.15 mg/dL 0.57-1.25 code = 358) GLUCOSE RANDOM (BEAKER) 97 mg/dL 70-105 (test code = 652) CALCIUM (BEAKER) (test 8.2 mg/dL 8.4-10.2 code = 697) EGFR (BEAKER) (test code 20 mL/min/1.73 sq m EST IMATED GFR IS NOT = 1092) ACCURATE CREA TININE CLEARANCE IN PRE DICTING GLOMERULAR FILTR ATION RATE. ESTIMATED GFR IS NOT APPLICABLE F OR DIALYSIS PATIENT S. Systems Testing Laboratory Technician ID - PIAYA [id number] 04:27:00 Test Item Value Reference Range Comments PHOSPHORUS (BEAKER) (test code = 604) 4.6 mg/dL 2.3-4.7 Systems Testing Laboratory Technician ID - RUDI [id number] 04:27:00 Test Item Value Reference Range Comments MAGNESIUM (BEAKER) (test code = 627) 2.2 mg/dL 1.6-2.6 Systems Testing Laboratory Technician ID - RUDI LOXYGEN SATURATION, [id number] 04:05:00 Test Item Value Reference Range Comments O2 SATURATION (MEASURED) (BEAKER) (test code = 1455) 68.1 % CBC W/PLT COUNT & AUTO [id number] 04:01:00 Test Item Value Reference Range Comments WHITE BLOOD CELL COUNT (BEAKER) (test code = 3.7 K/ L 3.5 -10.5 775) RED BLOOD CELL COUNT (BEAKER) (test code = 761) 2.72 M/ L 4.63-6.08 HEMOGLOBIN (BEAKER) (test code = 410) 8.0 GM/DL 13.7-17.5 HEMATOCRIT (BEAKER) (test code = 411) 24.9 % 40.1-51.0 MEAN CORPUSCULAR VOLUME (BEAKER) (test code = 91.5 fL 79 .0-92.2 753) MEAN CORPUSCULAR HEMOGLOBIN (BEAKER) (test code 29.4 pg 25.7-32.2 = 751) MEAN CORPUSCULAR HEMOGLOBIN CONC (BEAKER) (test 32.1 GM/DL 32.3-36.5 code = 752) RED CELL DISTRIBUTION WIDTH (BEAKER) (test code 17.3 % 11.6-14.4 = 412) PLATELET COUNT (BEAKER) (test code = 756) 327 K/CU MM 150-45 0 MEAN PLATELET VOLUME (BEAKER) (test code = 754) 9.4 fL 9.4-12.4 NUCLEATED RED BLOOD CELLS (BEAKER) (test code = 0 /100 WBC 0-0 413) NEUTROPHILS RELATIVE PERCENT (BEAKER) (test code 58 % = 429) LYMPHOCYTES RELATIVE PERCENT (BEAKER) (test code 20 % = 430) MONOCYTES RELATIVE PERCENT (BEAKER) (test code = 14 % 431) EOSINOPHILS RELATIVE PERCENT (BEAKER) (test code 8 % = 432) BASOPHILS RELATIVE PERCENT (BEAKER) (test code = 1 % 437) NEUTROPHILS ABSOLUTE COUNT (BEAKER) (test code = 2.18 K/ L 1.78-5.38 670) LYMPHOCYTES ABSOLUTE COUNT (BEAKER) (test code = 0.73 K/ L 1.32-3.57 414) MONOCYTES ABSOLUTE COUNT (BEAKER) (test code = 0.52 K/ L 0 .30-0.82 415) EOSINOPHILS ABSOLUTE COUNT (BEAKER) (test code = 0.28 K/ L 0.04-0.54 416) BASOPHILS ABSOLUTE COUNT (BEAKER) (test code = 0.02 K/ L 0 .01-0.08 417) IMMATURE GRANULOCYTES-RELATIVE PERCENT (BEAKER) 0 % 0-1 (test code = 2801) [id number] 00:13:00 Test Item Value Reference Range Comments POTASSIUM (BEAKER) (test code = 379) 4.7 meq/L 3.5-5.1 Systems Testing Laboratory Technician ID - [id number] 00:13:00 Test Item Value Reference Range Comments MAGNESIUM (BEAKER) (test code = 627) 2.2 mg/dL 1.6-2.6 Systems Testing Laboratory Technician ID - DBPOCT-GLUCOSE [id number] 21:59:00 Test Item Value Reference Range Comments POC-GLUCOSE METER (BEAKER) 104 mg/dL 70-110 : [facility] AT [address] (test code = 1538) [facility], [address]: Systems Testing Laboratory Technician/Technic alli ID = [id number] for MOHINI THURMAN POCT-GLUCOSE [id number] 18:19:00 Test Item Value Reference Range Comments POC-GLUCOSE METER (BEAKER) 125 mg/dL 70-110 : [facility] AT [address] (test code = 1538) [facility], [address]: Systems Testing Laboratory Technician/Technic alli ID = [id number] for ALEKSEY HOLLIDAY BASIC METABOLIC [id number] 14:09:00 Test Item Value Reference Range Comments SODIUM (BEAKER) (test 127 meq/L 136-145 code = 381) POTASSIUM (BEAKER) (test 4.6 meq/L 3.5-5.1 Specime n slightly code = 379) hemolyzed CHLORIDE (BEAKER) (test 99 meq/L 98-107 code = 382) CO2 (BEAKER) (test code = 18 meq/L 22-29 355) BLOOD UREA NITROGEN 56 mg/dL 7-21 (BEAKER) (test code = 354) CREATININE (BEAKER) (test 3.18 mg/dL 0.57-1.25 Specim en slightly code = 358) hemolyzed GLUCOSE RANDOM (BEAKER) 136 mg/dL 70-105 (test code = 652) CALCIUM (BEAKER) (test 8.0 mg/dL 8.4-10.2 code = 697) EGFR (BEAKER) (test code 19 mL/min/1.73 sq m EST IMATED GFR IS NOT = 1092) ACCURATE CREA TININE CLEARANCE IN PRE DICTING GLOMERULAR FILTR ATION RATE. ESTIMATED GFR IS NOT APPLICABLE F OR DIALYSIS PATIENT S. Systems Testing Laboratory Technician ID - RUDI [id number] 14:07:00 Test Item Value Reference Range Comments MAGNESIUM (BEAKER) (test code = 2.3 mg/dL 1.6-2.6 Specimen slightly hemolyzed 627) Systems Testing Laboratory Technician ID - RUDI LOXYGEN SATURATION, [id number] 13:47:00 Test Item Value Reference Range Comments O2 SATURATION (MEASURED) (BEAKER) (test code = 1455) 55.7 % POCT-GLUCOSE [id number] 12:04:00 Test Item Value Reference Range Comments POC-GLUCOSE METER (BEAKER) 99 mg/dL 70-110 : [facility] AT [facility] [address] [facility] (test code = 1538) [place], [address]: Systems Testing Laboratory Technician/Technic alli ID = [id number] for SA JENY NDRA RAD, CHEST, 1 VIEW, NON [id number] 07:28:00Reason for exam:->s/p ACBShould this be performed [...] contours. Stable surgical changes.Additional findings: None. Signed: Baylee, Marcella MDReport Verified Date/Time: 06/17/2019 07:28:33 Reading Location: [facility] C013V Neuro Reading Room OXYGEN SATURATION, [id number] 06:45:00 Test Item Value Reference Range Comments O2 SATURATION (MEASURED) (BEAKER) (test code = 1455) 62.2 % [id number] 04:54:00 Test Item Value Reference Range Comments CORTISOL, TOTAL (BEAKER) (test code = 2755) 14.7 ug/dL 3.7- 19.4 Systems Testing Laboratory Technician ID - PIAYA LBASIC METABOLIC [id number] 04:52:00 Test Item Value Reference Range Comments SODIUM (BEAKER) (test 131 meq/L 136-145 code = 381) POTASSIUM (BEAKER) (test 4.3 meq/L 3.5-5.1 code = 379) CHLORIDE (BEAKER) (test 105 meq/L 98-107 code = 382) CO2 (BEAKER) (test code = 18 meq/L 22-29 355) BLOOD UREA NITROGEN 53 mg/dL 7-21 (BEAKER) (test code = 354) CREATININE (BEAKER) (test 2.80 mg/dL 0.57-1.25 code = 358) GLUCOSE RANDOM (BEAKER) 114 mg/dL 70-105 (test code = 652) CALCIUM (BEAKER) (test 7.7 mg/dL 8.4-10.2 code = 697) EGFR (BEAKER) (test code 22 mL/min/1.73 sq m EST IMATED GFR IS NOT = 1092) ACCURATE CREA TININE CLEARANCE IN PRE DICTING GLOMERULAR FILTR ATION RATE. ESTIMATED GFR IS NOT APPLICABLE F OR DIALYSIS PATIENT S. Systems Testing Laboratory Technician ID - PIAYA [id number] 04:49:00 Test Item Value Reference Range Comments PHOSPHORUS (BEAKER) (test code = 604) 4.5 mg/dL 2.3-4.7 Systems Testing Laboratory Technician ID - PIAYA [id number] 04:49:00 Test Item Value Reference Range Comments MAGNESIUM (BEAKER) (test code = 627) 2.0 mg/dL 1.6-2.6 Systems Testing Laboratory Technician ID - PIAYA LLACTATE DEHYDROGENASE (LDH)2019-06-17 04:49:00 Test Item Value Reference Range Comments LACTATE DEHYDROGENASE (BEAKER) (test code = 635) 572 U/L 125-220 Systems Testing Laboratory Technician ID - RUDI LOXYGEN SATURATION, [id number] 04:37:00 Test Item Value Reference Range Comments O2 SATURATION (MEASURED) (BEAKER) (test code = 1455) 45.2 % CBC W/PLT COUNT & AUTO [id number] 04:26:00 Test Item Value Reference Range Comments WHITE BLOOD CELL COUNT (BEAKER) (test code = 3.8 K/ L 3.5 -10.5 775) RED BLOOD CELL COUNT (BEAKER) (test code = 761) 2.80 M/ L 4.63-6.08 HEMOGLOBIN (BEAKER) (test code = 410) 8.1 GM/DL 13.7-17.5 HEMATOCRIT (BEAKER) (test code = 411) 25.8 % 40.1-51.0 MEAN CORPUSCULAR VOLUME (BEAKER) (test code = 92.1 fL 79 .0-92.2 753) MEAN CORPUSCULAR HEMOGLOBIN (BEAKER) (test code 28.9 pg 25.7-32.2 = 751) MEAN CORPUSCULAR HEMOGLOBIN CONC (BEAKER) (test 31.4 GM/DL 32.3-36.5 code = 752) RED CELL DISTRIBUTION WIDTH (BEAKER) (test code 17.1 % 11.6-14.4 = 412) PLATELET COUNT (BEAKER) (test code = 756) 310 K/CU MM 150-45 0 MEAN PLATELET VOLUME (BEAKER) (test code = 754) 9.3 fL 9.4-12.4 NUCLEATED RED BLOOD CELLS (BEAKER) (test code = 0 /100 WBC 0-0 413) NEUTROPHILS RELATIVE PERCENT (BEAKER) (test code 61 % = 429) LYMPHOCYTES RELATIVE PERCENT (BEAKER) (test code 15 % = 430) MONOCYTES RELATIVE PERCENT (BEAKER) (test code = 14 % 431) EOSINOPHILS RELATIVE PERCENT (BEAKER) (test code 9 % = 432) BASOPHILS RELATIVE PERCENT (BEAKER) (test code = 1 % 437) NEUTROPHILS ABSOLUTE COUNT (BEAKER) (test code = 2.28 K/ L 1.78-5.38 670) LYMPHOCYTES ABSOLUTE COUNT (BEAKER) (test code = 0.55 K/ L 1.32-3.57 414) MONOCYTES ABSOLUTE COUNT (BEAKER) (test code = 0.52 K/ L 0 .30-0.82 415) EOSINOPHILS ABSOLUTE COUNT (BEAKER) (test code = 0.35 K/ L 0.04-0.54 416) BASOPHILS ABSOLUTE COUNT (BEAKER) (test code = 0.03 K/ L 0 .01-0.08 417) IMMATURE GRANULOCYTES-RELATIVE PERCENT (BEAKER) 1 % 0-1 (test code = 2801) POCT-GLUCOSE [id number] 22:24:00 Test Item Value Reference Range Comments POC-GLUCOSE METER (BEAKER) 109 mg/dL 70-110 : [facility] AT [facility] [address] [facility] (test code = 1538) [facility], [address]: Systems Testing Laboratory Technician/Technic alli ID = [id number] for MOHINI THURMAN [id number] 21:06:00 Test Item Value Reference Range Comments MAGNESIUM (BEAKER) (test code = 627) 2.1 mg/dL 1.6-2.6 Systems Testing Laboratory Technician ID - DBBASIC METABOLIC [id number] 18:01:00 Test Item Value Reference Range Comments SODIUM (BEAKER) (test 129 meq/L 136-145 code = 381) POTASSIUM (BEAKER) (test 5.0 meq/L 3.5-5.1 code = 379) CHLORIDE (BEAKER) (test 101 meq/L 98-107 code = 382) CO2 (BEAKER) (test code = 17 meq/L 22-29 355) BLOOD UREA NITROGEN 60 mg/dL 7-21 (BEAKER) (test code = 354) CREATININE (BEAKER) (test 3.19 mg/dL 0.57-1.25 code = 358) GLUCOSE RANDOM (BEAKER) 116 mg/dL 70-105 (test code = 652) CALCIUM (BEAKER) (test 8.2 mg/dL 8.4-10.2 code = 697) EGFR (BEAKER) (test code 19 mL/min/1.73 sq m EST IMATED GFR IS NOT = 1092) ACCURATE CREA TININE CLEARANCE IN PRE DICTING GLOMERULAR FILTR ATION RATE. ESTIMATED GFR IS NOT APPLICABLE F OR DIALYSIS PATIENT S. Systems Testing Laboratory Technician ID - DBPOCT-GLUCOSE [id number] 17:48:00 Test Item Value Reference Range Comments POC-GLUCOSE METER (BEAKER) 121 mg/dL 70-110 : Not ified RN/MD: TESTED AT (test code = 1538) [place] [id number] [facility], [address]: Systems Testing Laboratory Technician/ Traditional Chinese Herbalist ID = [id number] for JUANIS FOX [id number] 14:24:00 Test Item Value Reference Range Comments POTASSIUM (BEAKER) (test code = 379) 4.8 meq/L 3.5-5.1 Systems Testing Laboratory Technician ID - PIAYA [id number] 14:24:00 Test Item Value Reference Range Comments MAGNESIUM (BEAKER) (test code = 627) 2.3 mg/dL 1.6-2.6 Systems Testing Laboratory Technician ID - PIAYA LPOCT-GLUCOSE [id number] 13:22:00 Test Item Value Reference Range Comments POC-GLUCOSE METER (BEAKER) 103 mg/dL 70-110 : Not ified RN/MD: TESTED AT (test code = 1538) [address], [address]: Systems Testing Laboratory Technician/ Traditional Chinese Herbalist ID = [id number] for JUANIS FOX OXYGEN SATURATION, [id number] 13:16:00 Test Item Value Reference Range Comments O2 SATURATION (MEASURED) (BEAKER) (test code = 1455) 64.5 % POCT-GLUCOSE [id number] 08:19:00 Test Item Value Reference Range Comments POC-GLUCOSE METER (BEAKER) 107 mg/dL 70-110 : Not ified RN/MD: TESTED AT (test code = 1538) [address], [address]: Systems Testing Laboratory Technician/ Traditional Chinese Herbalist ID = [id number] for JUANIS FOX RAD, CHEST, 1 VIEW, NON [id number] 07:03:00Reason for exam:->s/p ACBShould this be performed at the bedside?->YesFINAL REPORT RAD, CHEST, 1 VIEW, NON DEPT INDICATION: s/p ACB COMPARISON: Prior day's exam FINDINGS: Portable frontal view of the chest. IMPRESSION: Support Lines: Right IJ [place] catheter has been removed. PICC again noted to terminate in the subclavian region. Lungs and pleura: No significant change in the interstitial markings or small effusions. No pneumothorax.Heart and mediastinum: Stable contours. Stable surgical changes.Additional findings: None. Signed: JR Mike, Jaqueline Reyez Verified Date/Time: 06/16/2019 07:03:33 [facility] Rad[facility] OXYGEN SATURATION, [id number] 06:36:00 Test Item Value Reference Range Comments O2 SATURATION (MEASURED) (BEAKER) (test code = 1455) 59.7 % BASIC METABOLIC [id number] 05:38:00 Test Item Value Reference Range Comments SODIUM (BEAKER) (test 129 meq/L 136-145 code = 381) POTASSIUM (BEAKER) (test 4.9 meq/L 3.5-5.1 code = 379) CHLORIDE (BEAKER) (test 102 meq/L 98-107 code = 382) CO2 (BEAKER) (test code = 20 meq/L 22-29 355) BLOOD UREA NITROGEN 61 mg/dL 7-21 (BEAKER) (test code = 354) CREATININE (BEAKER) (test 3.07 mg/dL 0.57-1.25 code = 358) GLUCOSE RANDOM (BEAKER) 105 mg/dL 70-105 (test code = 652) CALCIUM (BEAKER) (test 8.3 mg/dL 8.4-10.2 code = 697) EGFR (BEAKER) (test code 20 mL/min/1.73 sq m EST IMATED GFR IS NOT = 1092) ACCURATE CREA TININE CLEARANCE IN PRE DICTING GLOMERULAR FILTR ATION RATE. ESTIMATED GFR IS NOT APPLICABLE F OR DIALYSIS PATIENT S. Systems Testing Laboratory Technician ID - FREDERICK [id number] 05:34:00 Test Item Value Reference Range Comments PHOSPHORUS (BEAKER) (test code = 604) 5.1 mg/dL 2.3-4.7 Systems Testing Laboratory Technician ID - FREDERICK [id number] 05:34:00 Test Item Value Reference Range Comments MAGNESIUM (BEAKER) (test code = 627) 2.3 mg/dL 1.6-2.6 Systems Testing Laboratory Technician ID - FREDERICK WHEPATIC FUNCTION [id number] 05:34:00 Test Item Value Reference Range Comments TOTAL PROTEIN (BEAKER) (test code = 770) 5.9 gm/dL 6.0-8.3 ALBUMIN (BEAKER) (test code = 1145) 2.7 g/dL 3.5-5.0 BILIRUBIN TOTAL (BEAKER) (test code = 377) 0.7 mg/dL 0.2-1 .2 BILIRUBIN DIRECT (BEAKER) (test code = 706) 0.5 mg/dL 0.1- 0.5 ALKALINE PHOSPHATASE (BEAKER) (test code = 346) 225 U/L 40-150 AST (SGOT) (BEAKER) (test code = 353) 46 U/L 5-34 ALT (SGPT) (BEAKER) (test code = 347) 32 U/L 6-55 Systems Testing Laboratory Technician ID - FREDERICK WLACTATE DEHYDROGENASE (LDH)2019-06-16 05:34:00 Test Item Value Reference Range Comments LACTATE DEHYDROGENASE (BEAKER) (test code = 635) 678 U/L 125-220 Systems Testing Laboratory Technician ID - FREDERICK WCBC W/PLT COUNT & AUTO [id number] 04:56:00 Test Item Value Reference Range Comments WHITE BLOOD CELL COUNT (BEAKER) (test code = 4.7 K/ L 3.5 -10.5 775) RED BLOOD CELL COUNT (BEAKER) (test code = 761) 2.78 M/ L 4.63-6.08 HEMOGLOBIN (BEAKER) (test code = 410) 8.2 GM/DL 13.7-17.5 HEMATOCRIT (BEAKER) (test code = 411) 24.8 % 40.1-51.0 MEAN CORPUSCULAR VOLUME (BEAKER) (test code = 89.2 fL 79 .0-92.2 753) MEAN CORPUSCULAR HEMOGLOBIN (BEAKER) (test code 29.5 pg 25.7-32.2 = 751) MEAN CORPUSCULAR HEMOGLOBIN CONC (BEAKER) (test 33.1 GM/DL 32.3-36.5 code = 752) RED CELL DISTRIBUTION WIDTH (BEAKER) (test code 16.9 % 11.6-14.4 = 412) PLATELET COUNT (BEAKER) (test code = 756) 289 K/CU MM 150-45 0 MEAN PLATELET VOLUME (BEAKER) (test code = 754) 9.7 fL 9.4-12.4 NUCLEATED RED BLOOD CELLS (BEAKER) (test code = 0 /100 WBC 0-0 413) NEUTROPHILS RELATIVE PERCENT (BEAKER) (test code 60 % = 429) LYMPHOCYTES RELATIVE PERCENT (BEAKER) (test code 14 % = 430) MONOCYTES RELATIVE PERCENT (BEAKER) (test code = 14 % 431) EOSINOPHILS RELATIVE PERCENT (BEAKER) (test code 11 % = 432) BASOPHILS RELATIVE PERCENT (BEAKER) (test code = 1 % 437) NEUTROPHILS ABSOLUTE COUNT (BEAKER) (test code = 2.81 K/ L 1.78-5.38 670) LYMPHOCYTES ABSOLUTE COUNT (BEAKER) (test code = 0.64 K/ L 1.32-3.57 414) MONOCYTES ABSOLUTE COUNT (BEAKER) (test code = 0.64 K/ L 0 .30-0.82 415) EOSINOPHILS ABSOLUTE COUNT (BEAKER) (test code = 0.53 K/ L 0.04-0.54 416) BASOPHILS ABSOLUTE COUNT (BEAKER) (test code = 0.03 K/ L 0 .01-0.08 417) IMMATURE GRANULOCYTES-RELATIVE PERCENT (BEAKER) 1 % 0-1 (test code = 2801) POCT-GLUCOSE [id number] 22:51:00 Test Item Value Reference Range Comments POC-GLUCOSE METER (BEAKER) 104 mg/dL 70-110 : [facility] AT [facility] [address] [facility] (test code = 1538) [place], [address]: Systems Testing Laboratory Technician/Technic alli ID = [id number] for RAFAEL YUN [id number] 22:17:00 Test Item Value Reference Range Comments MAGNESIUM (BEAKER) (test code = 627) 2.3 mg/dL 1.6-2.6 Systems Testing Laboratory Technician ID - DBBASIC METABOLIC [id number] 18:29:00 Test Item Value Reference Range Comments SODIUM (BEAKER) (test 129 meq/L 136-145 code = 381) POTASSIUM (BEAKER) (test 4.7 meq/L 3.5-5.1 code = 379) CHLORIDE (BEAKER) (test 101 meq/L 98-107 code = 382) CO2 (BEAKER) (test code = 20 meq/L 22-29 355) BLOOD UREA NITROGEN 58 mg/dL 7-21 (BEAKER) (test code = 354) CREATININE (BEAKER) (test 3.21 mg/dL 0.57-1.25 code = 358) GLUCOSE RANDOM (BEAKER) 139 mg/dL 70-105 (test code = 652) CALCIUM (BEAKER) (test 8.2 mg/dL 8.4-10.2 code = 697) EGFR (BEAKER) (test code 19 mL/min/1.73 sq m EST IMATED GFR IS NOT = 1092) ACCURATE CREA TININE CLEARANCE IN PRE DICTING GLOMERULAR FILTR ATION RATE. ESTIMATED GFR IS NOT APPLICABLE F OR DIALYSIS PATIENT S. Systems Testing Laboratory Technician ID - BSPOCT-GLUCOSE [id number] 18:05:00 Test Item Value Reference Range Comments POC-GLUCOSE METER (BEAKER) 137 mg/dL 70-110 : [facility] AT [facility] [address] [facility] (test code = 1538) [facility], [address]: Systems Testing Laboratory Technician/Technic alli ID = [id number] for NUÑEZ, [place] ID OXYGEN SATURATION, [id number] 16:00:00 Test Item Value Reference Range Comments O2 SATURATION (MEASURED) (BEAKER) (test code = 1455) 67.3 % BASIC METABOLIC [id number] 14:25:00 Test Item Value Reference Range Comments SODIUM (BEAKER) (test 129 meq/L 136-145 code = 381) POTASSIUM (BEAKER) (test 5.1 meq/L 3.5-5.1 code = 379) CHLORIDE (BEAKER) (test 100 meq/L 98-107 code = 382) CO2 (BEAKER) (test code = 18 meq/L 22-29 355) BLOOD UREA NITROGEN 61 mg/dL 7-21 (BEAKER) (test code = 354) CREATININE (BEAKER) (test 3.11 mg/dL 0.57-1.25 code = 358) GLUCOSE RANDOM (BEAKER) 104 mg/dL 70-105 (test code = 652) CALCIUM (BEAKER) (test 8.3 mg/dL 8.4-10.2 code = 697) EGFR (BEAKER) (test code 20 mL/min/1.73 sq m EST IMATED GFR IS NOT = 1092) ACCURATE CREA TININE CLEARANCE IN PRE DICTING GLOMERULAR FILTR ATION RATE. ESTIMATED GFR IS NOT APPLICABLE F OR DIALYSIS PATIENT S. Systems Testing Laboratory Technician ID - MARISABEL [id number] 14:22:00 Test Item Value Reference Range Comments MAGNESIUM (BEAKER) (test code = 627) 2.4 mg/dL 1.6-2.6 Systems Testing Laboratory Technician ID - MARISABEL MPOCT-GLUCOSE [id number] 11:45:00 Test Item Value Reference Range Comments POC-GLUCOSE METER (BEAKER) 113 mg/dL 70-110 : Not ified RN/MD: TESTED AT (test code = 1538) [facility] [address] [facility], [address]: Systems Testing Laboratory Technician/ Traditional Chinese Herbalist ID = [id number] for Simmo ns, Angelika POCT-GLUCOSE [id number] 08:23:00 Test Item Value Reference Range Comments POC-GLUCOSE METER (BEAKER) 139 mg/dL 70-110 : Not ified RN/MD: TESTED AT (test code = 1538) [place] [id number] [facility], [address]: Systems Testing Laboratory Technician/ Traditional Chinese Herbalist ID = [id number] for Simmo ns, Angelika RAD, CHEST, 1 VIEW, NON [id number] 07:47:00Reason for exam:->s/p ACBShould this be performed at the bedside?->YesFINAL REPORT RAD, CHEST, 1 VIEW, NON DEPT INDICATION: s/p ACB COMPARISON: Prior day's exam FINDINGS: Portable frontal view of the chest. IMPRESSION: Support Lines: Right PICC again noted to terminate in the subclavian region. Remaining support hardware is stable. Lungs and pleura: Interstitial coarsening again noted without significant interval change. No pneumothorax.Heart and mediastinum: Stable contours. Stable surgical changes.Additional findings: None. Signed: JR Mckeon Robert MDReport Verified Date/Time: 06/15/2019 07:47:34 [facility] Rad[facility] Reading Room CBC W/PLT COUNT & AUTO [id number] 07:12:00 Test Item Value Reference Range Comments WHITE BLOOD CELL COUNT (BEAKER) (test code = 4.9 K/ L 3.5 -10.5 775) RED BLOOD CELL COUNT (BEAKER) (test code = 761) 2.88 M/ L 4.63-6.08 HEMOGLOBIN (BEAKER) (test code = 410) 8.4 GM/DL 13.7-17.5 HEMATOCRIT (BEAKER) (test code = 411) 25.9 % 40.1-51.0 MEAN CORPUSCULAR VOLUME (BEAKER) (test code = 89.9 fL 79 .0-92.2 753) MEAN CORPUSCULAR HEMOGLOBIN (BEAKER) (test code 29.2 pg 25.7-32.2 = 751) MEAN CORPUSCULAR HEMOGLOBIN CONC (BEAKER) (test 32.4 GM/DL 32.3-36.5 code = 752) RED CELL DISTRIBUTION WIDTH (BEAKER) (test code 17.0 % 11.6-14.4 = 412) PLATELET COUNT (BEAKER) (test code = 756) 269 K/CU MM 150-45 0 MEAN PLATELET VOLUME (BEAKER) (test code = 754) 9.6 fL 9.4-12.4 NUCLEATED RED BLOOD CELLS (BEAKER) (test code = 0 /100 WBC 0-0 413) NEUTROPHILS RELATIVE PERCENT (BEAKER) (test code 63 % = 429) LYMPHOCYTES RELATIVE PERCENT (BEAKER) (test code 14 % = 430) MONOCYTES RELATIVE PERCENT (BEAKER) (test code = 12 % 431) EOSINOPHILS RELATIVE PERCENT (BEAKER) (test code 10 % = 432) BASOPHILS RELATIVE PERCENT (BEAKER) (test code = 0 % 437) NEUTROPHILS ABSOLUTE COUNT (BEAKER) (test code = 3.10 K/ L 1.78-5.38 670) LYMPHOCYTES ABSOLUTE COUNT (BEAKER) (test code = 0.69 K/ L 1.32-3.57 414) MONOCYTES ABSOLUTE COUNT (BEAKER) (test code = 0.60 K/ L 0 .30-0.82 415) EOSINOPHILS ABSOLUTE COUNT (BEAKER) (test code = 0.49 K/ L 0.04-0.54 416) BASOPHILS ABSOLUTE COUNT (BEAKER) (test code = 0.02 K/ L 0 .01-0.08 417) IMMATURE GRANULOCYTES-RELATIVE PERCENT (BEAKER) 1 % 0-1 (test code = 2801) OXYGEN SATURATION, [id number] 05:03:00 Test Item Value Reference Range Comments O2 SATURATION (MEASURED) (BEAKER) (test code = 1455) 55.6 % LACTATE DEHYDROGENASE (LDH)2019-06-15 05:00:00 Test Item Value Reference Range Comments LACTATE DEHYDROGENASE (BEAKER) 821 U/L 125-220 S pecimen slightly hemolyzed (test code = 635) Systems Testing Laboratory Technician ID - MARISABEL MBASIC METABOLIC [id number] 05:00:00 Test Item Value Reference Range Comments SODIUM (BEAKER) (test 130 meq/L 136-145 code = 381) POTASSIUM (BEAKER) (test 5.2 meq/L 3.5-5.1 Specime n slightly code = 379) hemolyzed CHLORIDE (BEAKER) (test 101 meq/L 98-107 code = 382) CO2 (BEAKER) (test code = 22 meq/L 22-29 355) BLOOD UREA NITROGEN 62 mg/dL 7-21 (BEAKER) (test code = 354) CREATININE (BEAKER) (test 3.22 mg/dL 0.57-1.25 Specim en slightly code = 358) hemolyzed GLUCOSE RANDOM (BEAKER) 109 mg/dL 70-105 (test code = 652) CALCIUM (BEAKER) (test 8.2 mg/dL 8.4-10.2 code = 697) EGFR (BEAKER) (test code 19 mL/min/1.73 sq m EST IMATED GFR IS NOT = 1092) ACCURATE CREA TININE CLEARANCE IN PRE DICTING GLOMERULAR FILTR ATION RATE. ESTIMATED GFR IS NOT APPLICABLE F OR DIALYSIS PATIENT S. Systems Testing Laboratory Technician ID - MARISABEL [id number] 04:41:00 Test Item Value Reference Range Comments MAGNESIUM (BEAKER) (test code = 1.9 mg/dL 1.6-2.6 Specimen slightly hemolyzed 627) Systems Testing Laboratory Technician ID - MARISABEL [id number] 04:41:00 Test Item Value Reference Range Comments PHOSPHORUS (BEAKER) (test code 4.9 mg/dL 2.3-4.7 S pecimen slightly hemolyzed = 604) Systems Testing Laboratory Technician ID - MARISABEL MPOCT-GLUCOSE [id number] 22:14:00 Test Item Value Reference Range Comments POC-GLUCOSE METER (BEAKER) 130 mg/dL 70-110 : [facility] [id number] (test code = 1538) [place], [address]: Systems Testing Laboratory Technician/Technic alli ID = [id number] for MOHINI THURMAN BASIC METABOLIC [id number] 19:11:00 Test Item Value Reference Range Comments SODIUM (BEAKER) (test 130 meq/L 136-145 code = 381) POTASSIUM (BEAKER) (test 5.1 meq/L 3.5-5.1 code = 379) CHLORIDE (BEAKER) (test 101 meq/L 98-107 code = 382) CO2 (BEAKER) (test code = 21 meq/L 22-29 355) BLOOD UREA NITROGEN 62 mg/dL 7-21 (BEAKER) (test code = 354) CREATININE (BEAKER) (test 3.15 mg/dL 0.57-1.25 code = 358) GLUCOSE RANDOM (BEAKER) 127 mg/dL 70-105 (test code = 652) CALCIUM (BEAKER) (test 8.2 mg/dL 8.4-10.2 code = 697) EGFR (BEAKER) (test code 20 mL/min/1.73 sq m EST IMATED GFR IS NOT = 1092) ACCURATE CREA TININE CLEARANCE IN PRE DICTING GLOMERULAR FILTR ATION RATE. ESTIMATED GFR IS NOT APPLICABLE F OR DIALYSIS PATIENT S. Systems Testing Laboratory Technician ID - [id number] 19:10:00 Test Item Value Reference Range Comments MAGNESIUM (BEAKER) (test code = 627) 2.0 mg/dL 1.6-2.6 Systems Testing Laboratory Technician ID - BSPOTASSIUM-STAT [id number] 18:39:00 Test Item Value Reference Range Comments POTASSIUM (BEAKER) (test code = 379) 4.9 meq/L 3.6-5.5 POCT-GLUCOSE [id number] 16:49:00 Test Item Value Reference Range Comments POC-GLUCOSE METER (BEAKER) 122 mg/dL 70-110 : Not ified RN/MD: TESTED AT (test code = 1538) [facility] [address] [place], [address]: Systems Testing Laboratory Technician/ Traditional Chinese Herbalist ID = [id number] for Simmo nsPradeepl OXYGEN SATURATION, [id number] 16:42:00 Test Item Value Reference Range Comments O2 SATURATION (MEASURED) (BEAKER) (test code = 1455) 52.6 % POCT-GLUCOSE [id number] 13:23:00 Test Item Value Reference Range Comments POC-GLUCOSE METER (BEAKER) 125 mg/dL 70-110 : Not ified RN/MD: TESTED AT (test code = 1538) [address], [address]: Systems Testing Laboratory Technician/ Traditional Chinese Herbalist ID = [id number] for Simmo ns, Angelika [id number] 10:57:00 Test Item Value Reference Range Comments MAGNESIUM (BEAKER) (test code = 2.0 mg/dL 1.6-2.6 Specimen slightly hemolyzed 627) Systems Testing Laboratory Technician ID - MELLY [id number] 10:57:00 Test Item Value Reference Range Comments POTASSIUM (BEAKER) (test code = 5.6 meq/L 3.5-5.1 Specimen slightly hemolyzed 379) Systems Testing Laboratory Technician ID - MELLY FOXYGEN SATURATION, [id number] 10:36:00 Test Item Value Reference Range Comments O2 SATURATION (MEASURED) (BEAKER) (test code = 1455) 43.0 % POCT-GLUCOSE [id number] 08:35:00 Test Item Value Reference Range Comments POC-GLUCOSE METER (BEAKER) 107 mg/dL 70-110 : Not ified RN/MD: TESTED AT (test code = 1538) [address], [address]: Systems Testing Laboratory Technician/ Traditional Chinese Herbalist ID = [id number] for Simmo ns, Angelika RAD, CHEST, 1 VIEW, NON [id number] 07:03:00Reason for exam:->s/p ACBShould this be performed at the bedside?->YesFINAL REPORT RAD, CHEST, 1 VIEW, NON DEPT INDICATION: s/p ACB COMPARISON: Prior day's exam FINDINGS: Portable frontal view of the chest. IMPRESSION: Support Lines: Stable. Lungs and pleura: Increasing interstitial coarsening suggesting worsening edema. No pneumothorax.Heart and mediastinum: Stable contours. Stable surgical changes.Additional findings: None. Signed: JR Mckeon Robert [facility] Verified Date/Time: 06/14/2019 07:03:26 Reading Location: [facility] Reading Room BASIC METABOLIC [id number] 04:10:00 Test Item Value Reference Range Comments SODIUM (BEAKER) (test 131 meq/L 136-145 code = 381) POTASSIUM (BEAKER) (test 5.3 meq/L 3.5-5.1 Specime n slightly code = 379) hemolyzed CHLORIDE (BEAKER) (test 102 meq/L 98-107 code = 382) CO2 (BEAKER) (test code = 21 meq/L 22-29 355) BLOOD UREA NITROGEN 61 mg/dL 7-21 (BEAKER) (test code = 354) CREATININE (BEAKER) (test 3.01 mg/dL 0.57-1.25 Specim en slightly code = 358) hemolyzed GLUCOSE RANDOM (BEAKER) 109 mg/dL 70-105 (test code = 652) CALCIUM (BEAKER) (test 8.3 mg/dL 8.4-10.2 code = 697) EGFR (BEAKER) (test code 21 mL/min/1.73 sq m EST IMATED GFR IS NOT = 1092) ACCURATE CREA TININE CLEARANCE IN PRE DICTING GLOMERULAR FILTR ATION RATE. ESTIMATED GFR IS NOT APPLICABLE F OR DIALYSIS PATIENT S. Systems Testing Laboratory Technician ID - MARISABEL MLACTATE DEHYDROGENASE (LDH)2019-06-14 04:10:00 Test Item Value Reference Range Comments LACTATE DEHYDROGENASE (BEAKER) 1289 U/L 125-220 S pecimen slightly hemolyzed (test code = 635) Systems Testing Laboratory Technician ID - MARISABEL [id number] 03:51:00 Test Item Value Reference Range Comments MAGNESIUM (BEAKER) (test code = 2.0 mg/dL 1.6-2.6 Specimen slightly hemolyzed 627) Systems Testing Laboratory Technician ID - MARISABEL [id number] 03:51:00 Test Item Value Reference Range Comments PHOSPHORUS (BEAKER) (test code 4.6 mg/dL 2.3-4.7 S pecimen slightly hemolyzed = 604) Systems Testing Laboratory Technician ID - MARISABEL [id number] 03:39:00 Test Item Value Reference Range Comments PARTIAL THROMBOPLASTIN TIME (BEAKER) (test code 78.9 seconds 22.5-36.0 = 760) OXYGEN SATURATION, [id number] 03:23:00 Test Item Value Reference Range Comments O2 SATURATION (MEASURED) (BEAKER) (test code = 1455) 63.3 % PH, [id number] 03:23:00 Test Item Value Reference Range Comments PH VENOUS (BEAKER) (test code = 701) 7.46 7.32-7.42 CBC W/PLT COUNT & AUTO [id number] 03:21:00 Test Item Value Reference Range Comments WHITE BLOOD CELL COUNT (BEAKER) (test code = 5.5 K/ L 3.5 -10.5 775) RED BLOOD CELL COUNT (BEAKER) (test code = 761) 2.83 M/ L 4.63-6.08 HEMOGLOBIN (BEAKER) (test code = 410) 8.4 GM/DL 13.7-17.5 HEMATOCRIT (BEAKER) (test code = 411) 25.4 % 40.1-51.0 MEAN CORPUSCULAR VOLUME (BEAKER) (test code = 89.8 fL 79 .0-92.2 753) MEAN CORPUSCULAR HEMOGLOBIN (BEAKER) (test code 29.7 pg 25.7-32.2 = 751) MEAN CORPUSCULAR HEMOGLOBIN CONC (BEAKER) (test 33.1 GM/DL 32.3-36.5 code = 752) RED CELL DISTRIBUTION WIDTH (BEAKER) (test code 16.8 % 11.6-14.4 = 412) PLATELET COUNT (BEAKER) (test code = 756) 248 K/CU MM 150-45 0 MEAN PLATELET VOLUME (BEAKER) (test code = 754) 10.1 fL 9.4-12.4 NUCLEATED RED BLOOD CELLS (BEAKER) (test code = 0 /100 WBC 0-0 413) NEUTROPHILS RELATIVE PERCENT (BEAKER) (test code 68 % = 429) LYMPHOCYTES RELATIVE PERCENT (BEAKER) (test code 13 % = 430) MONOCYTES RELATIVE PERCENT (BEAKER) (test code = 12 % 431) EOSINOPHILS RELATIVE PERCENT (BEAKER) (test code 7 % = 432) BASOPHILS RELATIVE PERCENT (BEAKER) (test code = 0 % 437) NEUTROPHILS ABSOLUTE COUNT (BEAKER) (test code = 3.72 K/ L 1.78-5.38 670) LYMPHOCYTES ABSOLUTE COUNT (BEAKER) (test code = 0.70 K/ L 1.32-3.57 414) MONOCYTES ABSOLUTE COUNT (BEAKER) (test code = 0.65 K/ L 0 .30-0.82 415) EOSINOPHILS ABSOLUTE COUNT (BEAKER) (test code = 0.39 K/ L 0.04-0.54 416) BASOPHILS ABSOLUTE COUNT (BEAKER) (test code = 0.02 K/ L 0 .01-0.08 417) IMMATURE GRANULOCYTES-RELATIVE PERCENT (BEAKER) 1 % 0-1 (test code = 2801) POCT-GLUCOSE [id number] 22:46:00 Test Item Value Reference Range Comments POC-GLUCOSE METER (BEAKER) 121 mg/dL 70-110 : [facility] LINA AT [facility] [address] [facility] (test code = 1538) [facility], [address]: Systems Testing Laboratory Technician/Technic alli ID = [id number] for MOHINI THURMAN [id number] 22:06:00 Test Item Value Reference Range Comments POTASSIUM (BEAKER) (test code = 379) 5.1 meq/L 3.5-5.1 Systems Testing Laboratory Technician ID - [id number] 22:06:00 Test Item Value Reference Range Comments MAGNESIUM (BEAKER) (test code = 627) 2.0 mg/dL 1.6-2.6 Systems Testing Laboratory Technician ID - KENNBLOOD [id number] 20:00:00 Test Item Value Reference Range Comments CULTURE (BEAKER) (test code = 1095) No growth in 5 days BLOOD [id number] 20:00:00 Test Item Value Reference Range Comments CULTURE (BEAKER) (test code = 1095) No growth in 5 days OXYGEN SATURATION, [id number] 17:31:00 Test Item Value Reference Range Comments O2 SATURATION (MEASURED) (BEAKER) (test code = 1455) 60.1 % RAD, CHEST, 1 VIEW, NON [id number] 17:23:00Reason for exam:->MAC with PAC placementShould this be performed at the bedside?->YesFINAL REPORT Comparison: 06/13/2019 at 5:02 AM TECHNIQUE: Single view of the ch est FINDINGS: Tip of right internal jugular pulmonary arterial catheter projects in the main pulmonary outflow tract. No pneumothorax. No other significant change from recent previous chest x-ray. Signed: Sarath Randhawa Verified Date/Time: 06/13/2019 17:23:22 Reading Location: [facility] Radiology Reading Room POCT- GLUCOSE [id number] 16:31:00 Test Item Value Reference Range Comments POC-GLUCOSE METER (BEAKER) 122 mg/dL 70-110 : Not ified RN/MD: TESTED AT (test code = 1538) [address], [address]: Systems Testing Laboratory Technician/ Traditional Chinese Herbalist ID = [id number] for JONELLE ARGUETAMARITY [id number] 13:06:00 Test Item Value Reference Range Comments POTASSIUM (BEAKER) (test code = 379) 5.0 meq/L 3.5-5.1 Systems Testing Laboratory Technician ID - TODD [id number] 13:06:00 Test Item Value Reference Range Comments MAGNESIUM (BEAKER) (test code = 627) 2.1 mg/dL 1.6-2.6 Systems Testing Laboratory Technician ID - TODD MPOCT-GLUCOSE [id number] 12:40:00 Test Item Value Reference Range Comments POC-GLUCOSE METER (BEAKER) 100 mg/dL 70-110 : Not ified RN/MD: TESTED AT (test code = 1538) [facility] [address] [facility], [address]: Systems Testing Laboratory Technician/ Traditional Chinese Herbalist ID = [id number] for JONELLE ARGUETA JUANIS POCT-GLUCOSE [id number] 08:03:00 Test Item Value Reference Range Comments POC-GLUCOSE METER (BEAKER) 144 mg/dL 70-110 : KURTIS LINA AT [address] (test code = 1538) [facility], [address]: Systems Testing Laboratory Technician/Technic alli ID = [id number] for TAMMIJEOVANNYBRENDONLILIAN TTY RAD, CHEST, 1 VIEW, NON [id number] 07:32:00Reason for exam:->s/p ACBShould this be performed [...] MDReport Verified Date/Time: 06/13/2019 07:32:29 [facility] [id number] 05:21:00 Test Item Value Reference Range Comments PARTIAL THROMBOPLASTIN TIME (BEAKER) (test code 67.7 seconds 22.5-36.0 = 760) BASIC METABOLIC [id number] 05:16:00 Test Item Value Reference Range Comments SODIUM (BEAKER) (test 130 meq/L 136-145 code = 381) POTASSIUM (BEAKER) (test 5.1 meq/L 3.5-5.1 code = 379) CHLORIDE (BEAKER) (test 102 meq/L 98-107 code = 382) CO2 (BEAKER) (test code = 20 meq/L 22-29 355) BLOOD UREA NITROGEN 63 mg/dL 7-21 (BEAKER) (test code = 354) CREATININE (BEAKER) (test 2.78 mg/dL 0.57-1.25 code = 358) GLUCOSE RANDOM (BEAKER) 102 mg/dL 70-105 (test code = 652) CALCIUM (BEAKER) (test 8.3 mg/dL 8.4-10.2 code = 697) EGFR (BEAKER) (test code 23 mL/min/1.73 sq m EST IMATED GFR IS NOT = 1092) ACCURATE CREA TININE CLEARANCE IN PRE DICTING GLOMERULAR FILTR ATION RATE. ESTIMATED GFR IS NOT APPLICABLE F OR DIALYSIS PATIENT S. Systems Testing Laboratory Technician ID - MARISABEL [id number] 05:15:00 Test Item Value Reference Range Comments PHOSPHORUS (BEAKER) (test code = 604) 3.9 mg/dL 2.3-4.7 Systems Testing Laboratory Technician ID - MARISABEL [id number] 05:15:00 Test Item Value Reference Range Comments MAGNESIUM (BEAKER) (test code = 627) 2.1 mg/dL 1.6-2.6 Systems Testing Laboratory Technician ID - MARISABEL MLACTATE DEHYDROGENASE (LDH)2019-06-13 05:15:00 Test Item Value Reference Range Comments LACTATE DEHYDROGENASE (BEAKER) (test code = 635) 892 U/L 125-220 Systems Testing Laboratory Technician ID - MARISABEL MPH, [id number] 05:06:00 Test Item Value Reference Range Comments PH VENOUS (BEAKER) (test code = 701) 7.51 7.32-7.42 OXYGEN SATURATION, [id number] 05:05:00 Test Item Value Reference Range Comments O2 SATURATION (MEASURED) (BEAKER) (test code = 1455) 72.7 % CBC (HEMOGRAM ONLY)2019-06-13 04:57:00 Test Item Value Reference Range Comments WHITE BLOOD CELL COUNT (BEAKER) (test code = 6.0 K/ L 3.5 -10.5 775) RED BLOOD CELL COUNT (BEAKER) (test code = 761) 2.63 M/ L 4.63-6.08 HEMOGLOBIN (BEAKER) (test code = 410) 7.6 GM/DL 13.7-17.5 HEMATOCRIT (BEAKER) (test code = 411) 23.6 % 40.1-51.0 MEAN CORPUSCULAR VOLUME (BEAKER) (test code = 89.7 fL 79 .0-92.2 753) MEAN CORPUSCULAR HEMOGLOBIN (BEAKER) (test code 28.9 pg 25.7-32.2 = 751) MEAN CORPUSCULAR HEMOGLOBIN CONC (BEAKER) (test 32.2 GM/DL 32.3-36.5 code = 752) RED CELL DISTRIBUTION WIDTH (BEAKER) (test code 17.2 % 11.6-14.4 = 412) PLATELET COUNT (BEAKER) (test code = 756) 231 K/CU MM 150-45 0 MEAN PLATELET VOLUME (BEAKER) (test code = 754) 10.0 fL 9.4-12.4 NUCLEATED RED BLOOD CELLS (BEAKER) (test code = 0 /100 WBC 0-0 413) POCT-GLUCOSE [id number] 22:12:00 Test Item Value Reference Range Comments POC-GLUCOSE METER (BEAKER) 122 mg/dL 70-110 : [facility] LINA AT [facility] [address] [facility] (test code = 1538) [facility], [address]: Systems Testing Laboratory Technician/Technic alli ID = [id number] for MOHINI THURMAN [id number] 21:20:00 Test Item Value Reference Range Comments POTASSIUM (BEAKER) (test code = 379) 5.1 meq/L 3.5-5.1 Systems Testing Laboratory Technician ID - MEERA [id number] 21:20:00 Test Item Value Reference Range Comments MAGNESIUM (BEAKER) (test code = 627) 1.9 mg/dL 1.6-2.6 Systems Testing Laboratory Technician ID - MEERA EOXYGEN SATURATION, [id number] 20:50:00 Test Item Value Reference Range Comments O2 SATURATION (MEASURED) (BEAKER) (test code = 1455) 63.6 % POCT-GLUCOSE [id number] 16:20:00 Test Item Value Reference Range Comments POC-GLUCOSE METER (BEAKER) 118 mg/dL 70-110 : Not ified RN/MD: TESTED AT (test code = 1538) [facility] [address] [facility] [place], [address]: Systems Testing Laboratory Technician/ Traditional Chinese Herbalist ID = [id number] for Griffin morales, Angelika [id number] 13:31:00 Test Item Value Reference Range Comments POTASSIUM (BEAKER) (test code = 379) 5.2 meq/L 3.5-5.1 Systems Testing Laboratory Technician ID - MELLY [id number] 13:31:00 Test Item Value Reference Range Comments MAGNESIUM (BEAKER) (test code = 627) 2.0 mg/dL 1.6-2.6 Systems Testing Laboratory Technician ID - MELLY FPH, [id number] 12:59:00 Test Item Value Reference Range Comments PH VENOUS (BEAKER) (test code = 701) 7.42 7.32-7.42 OXYGEN SATURATION, [id number] 12:58:00 Test Item Value Reference Range Comments O2 SATURATION (MEASURED) (BEAKER) (test code = 1455) 66.3 % POCT-GLUCOSE [id number] 12:46:00 Test Item Value Reference Range Comments POC-GLUCOSE METER (BEAKER) 145 mg/dL 70-110 : Not ified RN/MD: TESTED AT (test code = 1538) [facility] [address] [facility], [address]: Systems Testing Laboratory Technician/ Traditional Chinese Herbalist ID = [id number] for Chandana Cortésquel POCT-GLUCOSE [id number] 08:16:00 Test Item Value Reference Range Comments POC-GLUCOSE METER (BEAKER) 101 mg/dL 70-110 : Not ified RN/MD: TESTED AT (test code = 1538) [facility] [address] [facility] [address]: Systems Testing Laboratory Technician/ Traditional Chinese Herbalist ID = [id number] for Simmo ns, Angelika RAD, CHEST, 1 VIEW, NON [id number] 07:44:00Reason for exam:->s/p ACBShould this be performed at the bedside?->YesFINAL REPORT RAD, CHEST, 1 VIEW, NON DEPT INDICATION: s/p ACB COMPARISON: Prior day's exam FINDINGS: Portable frontal view of the chest. IMPRESSION: Limited by exclusion of theleft costophrenic sulcus.Support Lines: Right IJ sheath has been removed. Remaining support hardwareis stable. Lungs and pleura: Mild interstitial congestion. Trace effusions. No pneumothorax.Heart and mediastinum: Stable contours. Stable surgical changes.Additional findings: None. Signed: JR Mckeon Robert MDReport Verified Date/Time: 06/12/2019 07:44:25 [facility] OXYGEN SATURATION, MEASURED 2019-06-12 05:16:00 Test Item Value Reference Range Comments O2 SATURATION (MEASURED) (BEAKER) (test code = 1455) 70.8 % [id number] 04:55:00 Test Item Value Reference Range Comments PARTIAL THROMBOPLASTIN TIME (BEAKER) (test code 86.6 seconds 22.5-36.0 = 760) BASIC METABOLIC [id number] 04:54:00 Test Item Value Reference Range Comments SODIUM (BEAKER) (test 129 meq/L 136-145 code = 381) POTASSIUM (BEAKER) (test 5.2 meq/L 3.5-5.1 code = 379) CHLORIDE (BEAKER) (test 100 meq/L 98-107 code = 382) CO2 (BEAKER) (test code = 22 meq/L 22-29 355) BLOOD UREA NITROGEN 68 mg/dL 7-21 (BEAKER) (test code = 354) CREATININE (BEAKER) (test 2.79 mg/dL 0.57-1.25 code = 358) GLUCOSE RANDOM (BEAKER) 109 mg/dL 70-105 (test code = 652) CALCIUM (BEAKER) (test 8.1 mg/dL 8.4-10.2 code = 697) EGFR (BEAKER) (test code 23 mL/min/1.73 sq m EST IMATED GFR IS NOT = 1092) ACCURATE CREA TININE CLEARANCE IN PRE DICTING GLOMERULAR FILTR ATION RATE. ESTIMATED GFR IS NOT APPLICABLE F OR DIALYSIS PATIENT S. Systems Testing Laboratory Technician ID - FREDERICK [id number] 04:47:00 Test Item Value Reference Range Comments PHOSPHORUS (BEAKER) (test code = 604) 4.2 mg/dL 2.3-4.7 Systems Testing Laboratory Technician ID - FREDERICK [id number] 04:47:00 Test Item Value Reference Range Comments MAGNESIUM (BEAKER) (test code = 627) 2.1 mg/dL 1.6-2.6 Systems Testing Laboratory Technician ID - FREDERICK WLACTATE DEHYDROGENASE (LDH)2019-06-12 04:47:00 Test Item Value Reference Range Comments LACTATE DEHYDROGENASE (BEAKER) (test code = 635) 943 U/L 125-220 Systems Testing Laboratory Technician ID - FREDERICK WCBC (HEMOGRAM ONLY)2019-06-12 04:28:00 Test Item Value Reference Range Comments WHITE BLOOD CELL COUNT (BEAKER) (test code = 5.7 K/ L 3.5 -10.5 775) RED BLOOD CELL COUNT (BEAKER) (test code = 761) 2.60 M/ L 4.63-6.08 HEMOGLOBIN (BEAKER) (test code = 410) 7.6 GM/DL 13.7-17.5 HEMATOCRIT (BEAKER) (test code = 411) 23.0 % 40.1-51.0 MEAN CORPUSCULAR VOLUME (BEAKER) (test code = 88.5 fL 79 .0-92.2 753) MEAN CORPUSCULAR HEMOGLOBIN (BEAKER) (test code 29.2 pg 25.7-32.2 = 751) MEAN CORPUSCULAR HEMOGLOBIN CONC (BEAKER) (test 33.0 GM/DL 32.3-36.5 code = 752) RED CELL DISTRIBUTION WIDTH (BEAKER) (test code 17.0 % 11.6-14.4 = 412) PLATELET COUNT (BEAKER) (test code = 756) 215 K/CU MM 150-45 0 MEAN PLATELET VOLUME (BEAKER) (test code = 754) 10.2 fL 9.4-12.4 NUCLEATED RED BLOOD CELLS (BEAKER) (test code = 0 /100 WBC 0-0 413) [id number] 22:34:00 Test Item Value Reference Range Comments POTASSIUM (BEAKER) (test code = 379) 5.0 meq/L 3.5-5.1 Systems Testing Laboratory Technician ID - MARIBEL [id number] 22:34:00 Test Item Value Reference Range Comments MAGNESIUM (BEAKER) (test code = 627) 2.1 mg/dL 1.6-2.6 Systems Testing Laboratory Technician ID - MARIBEL WPOCT-GLUCOSE [id number] 18:38:00 Test Item Value Reference Range Comments POC-GLUCOSE METER (BEAKER) 150 mg/dL 70-110 : [facility] LINA AT [facility] [address] [facility] (test code = 1538) [place], [address]: Systems Testing Laboratory Technician/Technic alli ID = [id number] for ALEKSEY HOLLIDAY OXYGEN SATURATION, [id number] 17:20:00 Test Item Value Reference Range Comments O2 SATURATION (MEASURED) (BEAKER) (test code = 1455) 60.7 % BASIC METABOLIC [id number] 16:49:00 Test Item Value Reference Range Comments SODIUM (BEAKER) (test 127 meq/L 136-145 code = 381) POTASSIUM (BEAKER) (test 4.9 meq/L 3.5-5.1 code = 379) CHLORIDE (BEAKER) (test 100 meq/L 98-107 code = 382) CO2 (BEAKER) (test code = 21 meq/L 22-29 355) BLOOD UREA NITROGEN 68 mg/dL 7-21 (BEAKER) (test code = 354) CREATININE (BEAKER) (test 2.70 mg/dL 0.57-1.25 code = 358) GLUCOSE RANDOM (BEAKER) 134 mg/dL 70-105 (test code = 652) CALCIUM (BEAKER) (test 7.7 mg/dL 8.4-10.2 code = 697) EGFR (BEAKER) (test code 23 mL/min/1.73 sq m EST IMATED GFR IS NOT = 1092) ACCURATE CREA TININE CLEARANCE IN PRE DICTING GLOMERULAR FILTR ATION RATE. ESTIMATED GFR IS NOT APPLICABLE F OR DIALYSIS PATIENT S. Systems Testing Laboratory Technician ID - MARIBEL WLACTATE DEHYDROGENASE (LDH)2019-06-11 12:22:00 Test Item Value Reference Range Comments LACTATE DEHYDROGENASE (BEAKER) 1099 U/L 125-220 S pecimen slightly hemolyzed (test code = 635) Systems Testing Laboratory Technician ID - TOOGBASIC METABOLIC [id number] 12:22:00 Test Item Value Reference Range Comments SODIUM (BEAKER) (test 126 meq/L 136-145 code = 381) POTASSIUM (BEAKER) (test 5.4 meq/L 3.5-5.1 Specime n slightly code = 379) hemolyzed CHLORIDE (BEAKER) (test 99 meq/L 98-107 code = 382) CO2 (BEAKER) (test code = 18 meq/L 22-29 355) BLOOD UREA NITROGEN 70 mg/dL 7-21 (BEAKER) (test code = 354) CREATININE (BEAKER) (test 2.82 mg/dL 0.57-1.25 Specim en slightly code = 358) hemolyzed GLUCOSE RANDOM (BEAKER) 107 mg/dL 70-105 (test code = 652) CALCIUM (BEAKER) (test 8.2 mg/dL 8.4-10.2 code = 697) EGFR (BEAKER) (test code 22 mL/min/1.73 sq m EST IMATED GFR IS NOT = 1092) ACCURATE CREA TININE CLEARANCE IN PRE DICTING GLOMERULAR FILTR ATION RATE. ESTIMATED GFR IS NOT APPLICABLE F OR DIALYSIS PATIENT S. Systems Testing Laboratory Technician ID - TOOJARADOCT-GLUCOSE [id number] 12:01:00 Test Item Value Reference Range Comments POC-GLUCOSE METER (BEAKER) 97 mg/dL 70-110 : [facility] LINA AT [facility] [address] (test code = 1538) [place], [address]: Systems Testing Laboratory Technician/Technic alli ID = [id number] for ALEKSEY HOLLIDAY CBC (HEMOGRAM ONLY)2019-06-11 11:40:00 Test Item Value Reference Range Comments WHITE BLOOD CELL COUNT (BEAKER) (test code = 7.6 K/ L 3.5 -10.5 775) RED BLOOD CELL COUNT (BEAKER) (test code = 761) 2.70 M/ L 4.63-6.08 HEMOGLOBIN (BEAKER) (test code = 410) 7.9 GM/DL 13.7-17.5 HEMATOCRIT (BEAKER) (test code = 411) 23.7 % 40.1-51.0 MEAN CORPUSCULAR VOLUME (BEAKER) (test code = 87.8 fL 79 .0-92.2 753) MEAN CORPUSCULAR HEMOGLOBIN (BEAKER) (test code 29.3 pg 25.7-32.2 = 751) MEAN CORPUSCULAR HEMOGLOBIN CONC (BEAKER) (test 33.3 GM/DL 32.3-36.5 code = 752) RED CELL DISTRIBUTION WIDTH (BEAKER) (test code 16.9 % 11.6-14.4 = 412) PLATELET COUNT (BEAKER) (test code = 756) 210 K/CU MM 150-45 0 MEAN PLATELET VOLUME (BEAKER) (test code = 754) 10.0 fL 9.4-12.4 NUCLEATED RED BLOOD CELLS (BEAKER) (test code = 0 /100 WBC 0-0 413) POCT-GLUCOSE [id number] 07:41:00 Test Item Value Reference Range Comments POC-GLUCOSE METER (BEAKER) 118 mg/dL 70-110 : [facility] LINA AT [facility] [address] [facility] (test code = 1538) [facility], [address]: Systems Testing Laboratory Technician/Technic alli ID = [id number] for ALEKSEY HOLLIDAY RAD, CHEST, 1 VIEW, NON [id number] 06:30:00Reason for exam:->s/p ACBShould this be performed [...] Stable surgical changes.Additional findings: None. Signed: Lilliana Tejedaeport Verified Date/Time: 06/11/2019 06:30:25 OXYGEN SATURATION, [id number] 06:19:00 Test Item Value Reference Range Comments O2 SATURATION (MEASURED) (BEAKER) (test code = 1455) 63.9 % [id number] 05:08:00 Test Item Value Reference Range Comments PHOSPHORUS (BEAKER) (test code = 604) 4.4 mg/dL 2.3-4.7 Systems Testing Laboratory Technician ID - FREDERICK WLACTATE DEHYDROGENASE (LDH)2019-06-11 05:08:00 Test Item Value Reference Range Comments LACTATE DEHYDROGENASE (BEAKER) (test code = 635) 908 U/L 125-220 Systems Testing Laboratory Technician ID - FREDERICK [id number] 05:07:00 Test Item Value Reference Range Comments PARTIAL THROMBOPLASTIN TIME (BEAKER) (test code 80.3 seconds 22.5-36.0 = 760) POCT-GLUCOSE [id number] 00:38:00 Test Item Value Reference Range Comments POC-GLUCOSE METER (BEAKER) 127 mg/dL 70-110 : KURTIS LINA AT [facility] [address] (test code = 1538) [facility], [address]: Systems Testing Laboratory Technician/Technic alli ID = [id number] for YAYA MEADOWS IA BASIC METABOLIC [id number] 19:03:00 Test Item Value Reference Range Comments SODIUM (BEAKER) (test 128 meq/L 136-145 code = 381) POTASSIUM (BEAKER) (test 4.9 meq/L 3.5-5.1 code = 379) CHLORIDE (BEAKER) (test 98 meq/L 98-107 code = 382) CO2 (BEAKER) (test code = 21 meq/L 22-29 355) BLOOD UREA NITROGEN 73 mg/dL 7-21 (BEAKER) (test code = 354) CREATININE (BEAKER) (test 2.92 mg/dL 0.57-1.25 code = 358) GLUCOSE RANDOM (BEAKER) 119 mg/dL 70-105 (test code = 652) CALCIUM (BEAKER) (test 8.5 mg/dL 8.4-10.2 code = 697) EGFR (BEAKER) (test code 21 mL/min/1.73 sq m EST IMATED GFR IS NOT = 1092) ACCURATE CREA TININE CLEARANCE IN PRE DICTING GLOMERULAR FILTR ATION RATE. ESTIMATED GFR IS NOT APPLICABLE F OR DIALYSIS PATIENT S. Systems Testing Laboratory Technician ID - MARISABEL [id number] 18:42:00 Test Item Value Reference Range Comments MAGNESIUM (BEAKER) (test code = 627) 2.4 mg/dL 1.6-2.6 Systems Testing Laboratory Technician ID - MARISABEL MLACTATE DEHYDROGENASE (LDH)2019-06-10 18:42:00 Test Item Value Reference Range Comments LACTATE DEHYDROGENASE (BEAKER) (test code = 635) 1075 U/L 125-220 Systems Testing Laboratory Technician ID - MARISABEL MOXYGEN SATURATION, [id number] 18:05:00 Test Item Value Reference Range Comments O2 SATURATION (MEASURED) (BEAKER) (test code = 1455) 57.4 % CBC (HEMOGRAM ONLY)2019-06-10 16:33:00 Test Item Value Reference Range Comments WHITE BLOOD CELL COUNT (BEAKER) (test code = 9.9 K/ L 3.5 -10.5 775) RED BLOOD CELL COUNT (BEAKER) (test code = 761) 2.71 M/ L 4.63-6.08 HEMOGLOBIN (BEAKER) (test code = 410) 7.9 GM/DL 13.7-17.5 HEMATOCRIT (BEAKER) (test code = 411) 23.7 % 40.1-51.0 MEAN CORPUSCULAR VOLUME (BEAKER) (test code = 87.5 fL 79 .0-92.2 753) MEAN CORPUSCULAR HEMOGLOBIN (BEAKER) (test code 29.2 pg 25.7-32.2 = 751) MEAN CORPUSCULAR HEMOGLOBIN CONC (BEAKER) (test 33.3 GM/DL 32.3-36.5 code = 752) RED CELL DISTRIBUTION WIDTH (BEAKER) (test code 16.8 % 11.6-14.4 = 412) PLATELET COUNT (BEAKER) (test code = 756) 197 K/CU MM 150-45 0 MEAN PLATELET VOLUME (BEAKER) (test code = 754) 9.9 fL 9.4-12.4 NUCLEATED RED BLOOD CELLS (BEAKER) (test code = 0 /100 WBC 0-0 413) POCT-GLUCOSE [id number] 10:47:00 Test Item Value Reference Range Comments POC-GLUCOSE METER (BEAKER) 113 mg/dL 70-110 : KURTIS LINA AT [facility] [address] (test code = 1538) [place], [address]: Systems Testing Laboratory Technician/Technic alli ID = [id number] for GENARO VÁZQUEZ, CHEST, 1 VIEW, NON [id number] 08:41:00Reason for exam:->s/p ACBShould this be performed [...] right lung base. No other significant change. Signed: Ellen Ropereport Verified Date/Time: 06/10/2019 08:41:34 Reading Location: [address] Ortho Consult Reading Room RAD, ABDOMEN/KUB, 1 VIEW [id number] 07:43:00Reason for exam:->abdominal pain.FINAL REPORT Abdomen. HISTORY: Abdominal pain. COMPARISON STUDY: June 09. FINDINGS: Two supine views of the abdomen demonstrates gas-filled nondistended loops of large and small bowel. No gas is seen in the rectum. Degenerative changes are seen. This film is insensitivefor the detection of free air. IMPRESSION: Gas-filled nondistended loops of bowel, similar to previous. Signed: Ellen Roper MDReport Verified Date/Time: 06/10/2019 07:43:03 Reading Location: [facility] B1 [id number] Ortho Consult Reading Room BASIC METABOLIC PANEL 2019-06-10 06:11:00 Test Item Value Reference Range Comments SODIUM (BEAKER) (test 126 meq/L 136-145 code = 381) POTASSIUM (BEAKER) (test 4.8 meq/L 3.5-5.1 code = 379) CHLORIDE (BEAKER) (test 96 meq/L 98-107 code = 382) CO2 (BEAKER) (test code = 20 meq/L 22-29 355) BLOOD UREA NITROGEN 75 mg/dL 7-21 (BEAKER) (test code = 354) CREATININE (BEAKER) (test 3.07 mg/dL 0.57-1.25 code = 358) GLUCOSE RANDOM (BEAKER) 110 mg/dL 70-105 (test code = 652) CALCIUM (BEAKER) (test 8.2 mg/dL 8.4-10.2 code = 697) EGFR (BEAKER) (test code 20 mL/min/1.73 sq m EST IMATED GFR IS NOT = 1092) ACCURATE CREA TININE CLEARANCE IN PRE DICTING GLOMERULAR FILTR ATION RATE. ESTIMATED GFR IS NOT APPLICABLE F OR DIALYSIS PATIENT S. Systems Testing Laboratory Technician ID - MARISABEL [id number] 06:06:00 Test Item Value Reference Range Comments MAGNESIUM (BEAKER) (test code = 627) 2.3 mg/dL 1.6-2.6 Systems Testing Laboratory Technician ID - MARISABEL [id number] 05:51:00 Test Item Value Reference Range Comments PARTIAL THROMBOPLASTIN TIME (BEAKER) (test code 84.1 seconds 22.5-36.0 = 760) CBC (HEMOGRAM ONLY)2019-06-10 05:45:00 Test Item Value Reference Range Comments WHITE BLOOD CELL COUNT (BEAKER) (test code = 13.0 K/ L 3.5 -10.5 775) RED BLOOD CELL COUNT (BEAKER) (test code = 761) 2.73 M/ L 4.63-6.08 HEMOGLOBIN (BEAKER) (test code = 410) 8.0 GM/DL 13.7-17.5 HEMATOCRIT (BEAKER) (test code = 411) 24.1 % 40.1-51.0 MEAN CORPUSCULAR VOLUME (BEAKER) (test code = 88.3 fL 79 .0-92.2 753) MEAN CORPUSCULAR HEMOGLOBIN (BEAKER) (test code 29.3 pg 25.7-32.2 = 751) MEAN CORPUSCULAR HEMOGLOBIN CONC (BEAKER) (test 33.2 GM/DL 32.3-36.5 code = 752) RED CELL DISTRIBUTION WIDTH (BEAKER) (test code 16.6 % 11.6-14.4 = 412) PLATELET COUNT (BEAKER) (test code = 756) 203 K/CU MM 150-45 0 MEAN PLATELET VOLUME (BEAKER) (test code = 754) 9.9 fL 9.4-12.4 NUCLEATED RED BLOOD CELLS (BEAKER) (test code = 0 /100 WBC 0-0 413) OXYGEN SATURATION, [id number] 05:08:00 Test Item Value Reference Range Comments O2 SATURATION (MEASURED) (BEAKER) (test code = 1455) 74.4 % [id number] 02:41:00 Test Item Value Reference Range Comments MAGNESIUM (BEAKER) (test code = 2.3 mg/dL 1.6-2.6 Specimen slightly hemolyzed 627) Systems Testing Laboratory Technician AMY - MEERA [id number] 02:41:00 Test Item Value Reference Range Comments POTASSIUM (BEAKER) (test code = 4.9 meq/L 3.5-5.1 Specimen slightly hemolyzed 379) Systems Testing Laboratory Technician AMY ESTES EBASIC METABOLIC [id number] 22:27:00 Test Item Value Reference Range Comments SODIUM (BEAKER) (test 127 meq/L 136-145 code = 381) POTASSIUM (BEAKER) (test 4.6 meq/L 3.5-5.1 code = 379) CHLORIDE (BEAKER) (test 96 meq/L 98-107 code = 382) CO2 (BEAKER) (test code = 22 meq/L 22-29 355) BLOOD UREA NITROGEN 73 mg/dL 7-21 (BEAKER) (test code = 354) CREATININE (BEAKER) (test 3.12 mg/dL 0.57-1.25 code = 358) GLUCOSE RANDOM (BEAKER) 122 mg/dL 70-105 (test code = 652) CALCIUM (BEAKER) (test 7.8 mg/dL 8.4-10.2 code = 697) EGFR (BEAKER) (test code 20 mL/min/1.73 sq m EST IMATED GFR IS NOT = 1092) ACCURATE CREA TININE CLEARANCE IN PRE DICTING GLOMERULAR FILTR ATION RATE. ESTIMATED GFR IS NOT APPLICABLE F OR DIALYSIS PATIENT S. Systems Testing Laboratory Technician ID - [id number] 22:24:00 Test Item Value Reference Range Comments MAGNESIUM (BEAKER) (test code = 627) 2.4 mg/dL 1.6-2.6 Systems Testing Laboratory Technician ID - BSPOCT-GLUCOSE [id number] 22:16:00 Test Item Value Reference Range Comments POC-GLUCOSE METER (BEAKER) 109 mg/dL 70-110 : [facility] [address] [facility] (test code = 1538) [facility], [address]: Systems Testing Laboratory Technician/Technic alli ID = [id number] for MOHINI THURMAN CBC (HEMOGRAM ONLY)2019-06-09 21:57:00 Test Item Value Reference Range Comments WHITE BLOOD CELL COUNT (BEAKER) (test code = 14.6 K/ L 3.5 -10.5 775) RED BLOOD CELL COUNT (BEAKER) (test code = 761) 2.71 M/ L 4.63-6.08 HEMOGLOBIN (BEAKER) (test code = 410) 7.8 GM/DL 13.7-17.5 HEMATOCRIT (BEAKER) (test code = 411) 23.9 % 40.1-51.0 MEAN CORPUSCULAR VOLUME (BEAKER) (test code = 88.2 fL 79 .0-92.2 753) MEAN CORPUSCULAR HEMOGLOBIN (BEAKER) (test code 28.8 pg 25.7-32.2 = 751) MEAN CORPUSCULAR HEMOGLOBIN CONC (BEAKER) (test 32.6 GM/DL 32.3-36.5 code = 752) RED CELL DISTRIBUTION WIDTH (BEAKER) (test code 16.6 % 11.6-14.4 = 412) PLATELET COUNT (BEAKER) (test code = 756) 205 K/CU MM 150-45 0 MEAN PLATELET VOLUME (BEAKER) (test code = 754) 10.2 fL 9.4-12.4 NUCLEATED RED BLOOD CELLS (BEAKER) (test code = 0 /100 WBC 0-0 413) BASIC METABOLIC [id number] 15:57:00 Test Item Value Reference Range Comments SODIUM (BEAKER) (test 129 meq/L 136-145 code = 381) POTASSIUM (BEAKER) (test 4.8 meq/L 3.5-5.1 code = 379) CHLORIDE (BEAKER) (test 98 meq/L 98-107 code = 382) CO2 (BEAKER) (test code = 24 meq/L 22-29 355) BLOOD UREA NITROGEN 82 mg/dL 7-21 (BEAKER) (test code = 354) CREATININE (BEAKER) (test 3.21 mg/dL 0.57-1.25 code = 358) GLUCOSE RANDOM (BEAKER) 145 mg/dL 70-105 (test code = 652) CALCIUM (BEAKER) (test 8.7 mg/dL 8.4-10.2 code = 697) EGFR (BEAKER) (test code 19 mL/min/1.73 sq m EST IMATED GFR IS NOT = 1092) ACCURATE CREA TININE CLEARANCE IN PRE DICTING GLOMERULAR FILTR ATION RATE. ESTIMATED GFR IS NOT APPLICABLE F OR DIALYSIS PATIENT S. Systems Testing Laboratory Technician ID - MEERA [id number] 15:52:00 Test Item Value Reference Range Comments MAGNESIUM (BEAKER) (test code = 627) 2.6 mg/dL 1.6-2.6 Systems Testing Laboratory Technician ID - MEERA ELACTATE DEHYDROGENASE (LDH)2019-06-09 15:52:00 Test Item Value Reference Range Comments LACTATE DEHYDROGENASE (BEAKER) (test code = 635) 1283 U/L 125-220 Systems Testing Laboratory Technician ID - MEERA ECBC (HEMOGRAM ONLY)2019-06-09 15:36:00 Test Item Value Reference Range Comments WHITE BLOOD CELL COUNT (BEAKER) (test code = 15.5 K/ L 3.5 -10.5 775) RED BLOOD CELL COUNT (BEAKER) (test code = 761) 2.83 M/ L 4.63-6.08 HEMOGLOBIN (BEAKER) (test code = 410) 8.3 GM/DL 13.7-17.5 HEMATOCRIT (BEAKER) (test code = 411) 24.7 % 40.1-51.0 MEAN CORPUSCULAR VOLUME (BEAKER) (test code = 87.3 fL 79 .0-92.2 753) MEAN CORPUSCULAR HEMOGLOBIN (BEAKER) (test code 29.3 pg 25.7-32.2 = 751) MEAN CORPUSCULAR HEMOGLOBIN CONC (BEAKER) (test 33.6 GM/DL 32.3-36.5 code = 752) RED CELL DISTRIBUTION WIDTH (BEAKER) (test code 16.6 % 11.6-14.4 = 412) PLATELET COUNT (BEAKER) (test code = 756) 211 K/CU MM 150-45 0 MEAN PLATELET VOLUME (BEAKER) (test code = 754) 10.6 fL 9.4-12.4 NUCLEATED RED BLOOD CELLS (BEAKER) (test code = 0 /100 WBC 0-0 413) POCT-GLUCOSE [id number] 12:43:00 Test Item Value Reference Range Comments POC-GLUCOSE METER (BEAKER) 123 mg/dL 70-110 : Not ified RN/MD: TESTED AT (test code = 1538) [place] [id number] [facility], [address]: Systems Testing Laboratory Technician/ Traditional Chinese Herbalist ID = [id number] for JUANIS FOX RAD, ABDOMEN/KUB, 1 VIEW [id number] 09:37:00Reason for exam:->stool impactionFINAL REPORT RAD, ABDOMEN/KUB, 1 VIEW AP CLINICAL INDICATION: stool impaction COMPARISON: None TECHNIQUE: Single, frontal radiograph of the abdomen. FINDINGS: The bowel gas pattern is nonspecific, but nonobstructive. The regional skeleton is intact. IMPRESSION: Nonspecific, nonobstructive bowel gas pattern. Colon is air and stool filled. Stool is present within the rectum. Signed: Marcella Burdick MDReport Verified Date/Time: 06/09/2019 09:37:05 [facility] Rad[facility] RAD, CHEST, 1 VIEW, NON [id number] 08:29:00Reason for exam:->s/p ACBShould this be performed at the bedside?->YesFINAL REPORT RAD, CHEST, 1 VIEW, NON DEPT INDICATION: s/p ACB COMPARISON: Prior day's exam FINDINGS: Portable frontal view of the chest. IMPRESSION: Support Lines: Stable. Lungs and pleura: Unchanged airspace and pleural opacities. No pneumothorax.Heart and mediastinum: Stable contours. Stable surgical changes.Additional findings: None. Signed: Marcella Burdick Verified Date/Time: 06/09/2019 08:29:29 Reading [facility] Rad[facility] Reading Room POCT-GLUCOSE [id number] 08:23:00 Test Item Value Reference Range Comments POC-GLUCOSE METER (BEAKER) 133 mg/dL 70-110 : Not ified RN/MD: TESTED AT (test code = 1538) [address], [address]: Systems Testing Laboratory Technician/ Traditional Chinese Herbalist ID = [id number] for JUANIS FOX OXYGEN SATURATION, [id number] 06:33:00 Test Item Value Reference Range Comments O2 SATURATION (MEASURED) (BEAKER) (test code = 1455) 58.0 % CBC W/PLT COUNT & AUTO [id number] 04:45:00 Test Item Value Reference Range Comments WHITE BLOOD CELL COUNT (BEAKER) (test code = 19.7 K/ L 3.5 -10.5 775) RED BLOOD CELL COUNT (BEAKER) (test code = 761) 2.82 M/ L 4.63-6.08 HEMOGLOBIN (BEAKER) (test code = 410) 8.3 GM/DL 13.7-17.5 HEMATOCRIT (BEAKER) (test code = 411) 24.4 % 40.1-51.0 MEAN CORPUSCULAR VOLUME (BEAKER) (test code = 86.5 fL 79 .0-92.2 753) MEAN CORPUSCULAR HEMOGLOBIN (BEAKER) (test code 29.4 pg 25.7-32.2 = 751) MEAN CORPUSCULAR HEMOGLOBIN CONC (BEAKER) (test 34.0 GM/DL 32.3-36.5 code = 752) RED CELL DISTRIBUTION WIDTH (BEAKER) (test code 16.2 % 11.6-14.4 = 412) PLATELET COUNT (BEAKER) (test code = 756) 197 K/CU MM 150-45 0 MEAN PLATELET VOLUME (BEAKER) (test code = 754) 10.2 fL 9.4-12.4 NUCLEATED RED BLOOD CELLS (BEAKER) (test code = 0 /100 WBC 0-0 413) NEUTROPHILS RELATIVE PERCENT (BEAKER) (test code 88 % = 429) LYMPHOCYTES RELATIVE PERCENT (BEAKER) (test code 4 % = 430) MONOCYTES RELATIVE PERCENT (BEAKER) (test code = 6 % 431) EOSINOPHILS RELATIVE PERCENT (BEAKER) (test code 1 % = 432) BASOPHILS RELATIVE PERCENT (BEAKER) (test code = 0 % 437) NEUTROPHILS ABSOLUTE COUNT (BEAKER) (test code = 17.31 K/ L 1.78-5.38 670) LYMPHOCYTES ABSOLUTE COUNT (BEAKER) (test code = 0.75 K/ L 1.32-3.57 414) MONOCYTES ABSOLUTE COUNT (BEAKER) (test code = 1.21 K/ L 0 .30-0.82 415) EOSINOPHILS ABSOLUTE COUNT (BEAKER) (test code = 0.20 K/ L 0.04-0.54 416) BASOPHILS ABSOLUTE COUNT (BEAKER) (test code = 0.04 K/ L 0 .01-0.08 417) IMMATURE GRANULOCYTES-RELATIVE PERCENT (BEAKER) 1 % 0-1 (test code = 2801) [id number] 04:23:00 Test Item Value Reference Range Comments PROTIME (BEAKER) (test code = 759) 20.5 seconds 11.9-14.2 INR (BEAKER) (test code = 370) 1.8 <=5.9 PARTIAL THROMBOPLASTIN TIME (BEAKER) (test code 89.0 seconds 22.5-36.0 = 760) Effective 10/12/2018: PT Reference Range ChangeNew: 11.9-14.2 Previous: 11.7- 14.7RECOMMENDED COUMADIN/WARFARIN INR THERAPY RANGESSTANDARD DOSE: 2.0-3.0 Includes: PROPHYLAXIS for venous thrombosis, systemic embolization; TREATMENT for venous thrombosis and/or pulmonary embolus.HIGH RISK: Target INR is2.5-3.5 for patients wiht mechanical heart valves.BASIC METABOLIC [id number] 04:11:00 Test Item Value Reference Range Comments SODIUM (BEAKER) (test 126 meq/L 136-145 code = 381) POTASSIUM (BEAKER) (test 4.7 meq/L 3.5-5.1 code = 379) CHLORIDE (BEAKER) (test 95 meq/L 98-107 code = 382) CO2 (BEAKER) (test code = 23 meq/L 22-29 355) BLOOD UREA NITROGEN 70 mg/dL 7-21 (BEAKER) (test code = 354) CREATININE (BEAKER) (test 3.00 mg/dL 0.57-1.25 code = 358) GLUCOSE RANDOM (BEAKER) 121 mg/dL 70-105 (test code = 652) CALCIUM (BEAKER) (test 8.1 mg/dL 8.4-10.2 code = 697) EGFR (BEAKER) (test code 21 mL/min/1.73 sq m EST IMATED GFR IS NOT = 1092) ACCURATE CREA TININE CLEARANCE IN PRE DICTING GLOMERULAR FILTR ATION RATE. ESTIMATED GFR IS NOT APPLICABLE F OR DIALYSIS PATIENT S. Systems Testing Laboratory Technician ID - MARISABEL [id number] 04:09:00 Test Item Value Reference Range Comments PHOSPHORUS (BEAKER) (test code = 604) 3.7 mg/dL 2.3-4.7 Systems Testing Laboratory Technician ID - MARISABEL [id number] 04:09:00 Test Item Value Reference Range Comments MAGNESIUM (BEAKER) (test code = 627) 2.1 mg/dL 1.6-2.6 Systems Testing Laboratory Technician ID - MARISABEL MLACTATE DEHYDROGENASE (LDH)2019-06-09 04:09:00 Test Item Value Reference Range Comments LACTATE DEHYDROGENASE (BEAKER) (test code = 635) 1092 U/L 125-220 Systems Testing Laboratory Technician ID - MARISABEL [id number] 01:08:00 Test Item Value Reference Range Comments POTASSIUM (BEAKER) (test code = 379) 4.7 meq/L 3.5-5.1 Systems Testing Laboratory Technician ID - MARY [id number] 00:36:00 Test Item Value Reference Range Comments MAGNESIUM (BEAKER) (test code = 627) 2.1 mg/dL 1.6-2.6 Systems Testing Laboratory Technician ID - MARY BBASIC METABOLIC [id number] 19:01:00 Test Item Value Reference Range Comments SODIUM (BEAKER) (test 124 meq/L 136-145 code = 381) POTASSIUM (BEAKER) (test 4.5 meq/L 3.5-5.1 code = 379) CHLORIDE (BEAKER) (test 94 meq/L 98-107 code = 382) CO2 (BEAKER) (test code = 24 meq/L 22-29 355) BLOOD UREA NITROGEN 69 mg/dL 7-21 (BEAKER) (test code = 354) CREATININE (BEAKER) (test 2.93 mg/dL 0.57-1.25 code = 358) GLUCOSE RANDOM (BEAKER) 126 mg/dL 70-105 (test code = 652) CALCIUM (BEAKER) (test 7.9 mg/dL 8.4-10.2 code = 697) EGFR (BEAKER) (test code 21 mL/min/1.73 sq m EST IMATED GFR IS NOT = 1092) ACCURATE CREA TININE CLEARANCE IN PRE DICTING GLOMERULAR FILTR ATION RATE. ESTIMATED GFR IS NOT APPLICABLE F OR DIALYSIS PATIENT S. Systems Testing Laboratory Technician ID - [id number] 18:49:00 Test Item Value Reference Range Comments MAGNESIUM (BEAKER) (test code = 627) 2.1 mg/dL 1.6-2.6 Systems Testing Laboratory Technician ID - AAHAMIDLACTATE DEHYDROGENASE (LDH)2019-06-08 18:49:00 Test Item Value Reference Range Comments LACTATE DEHYDROGENASE (BEAKER) (test code = 635) 1097 U/L 125-220 Systems Testing Laboratory Technician ID - AAHAMIDCBC (HEMOGRAM ONLY)2019-06-08 18:23:00 Test Item Value Reference Range Comments WHITE BLOOD CELL COUNT (BEAKER) (test code = 20.2 K/ L 3.5 -10.5 775) RED BLOOD CELL COUNT (BEAKER) (test code = 761) 2.76 M/ L 4.63-6.08 HEMOGLOBIN (BEAKER) (test code = 410) 8.2 GM/DL 13.7-17.5 HEMATOCRIT (BEAKER) (test code = 411) 23.9 % 40.1-51.0 MEAN CORPUSCULAR VOLUME (BEAKER) (test code = 86.6 fL 79 .0-92.2 753) MEAN CORPUSCULAR HEMOGLOBIN (BEAKER) (test code 29.7 pg 25.7-32.2 = 751) MEAN CORPUSCULAR HEMOGLOBIN CONC (BEAKER) (test 34.3 GM/DL 32.3-36.5 code = 752) RED CELL DISTRIBUTION WIDTH (BEAKER) (test code 16.5 % 11.6-14.4 = 412) PLATELET COUNT (BEAKER) (test code = 756) 192 K/CU MM 150-45 0 MEAN PLATELET VOLUME (BEAKER) (test code = 754) 10.2 fL 9.4-12.4 NUCLEATED RED BLOOD CELLS (BEAKER) (test code = 0 /100 WBC 0-0 413) CT, CHEST, WITHOUT [id number] 16:45:00FINAL REPORT CT scan of the chest, abdomen and pelvis. MEDICAL HISTORY: Acute abdominal pain. Rule out bowel obstruction. COMPARISON STUDY: [...] noted. Bone windows demonstrate poststernotomy changes and de generative changes. IMPRESSION:1. Bilateral small pleural effusions with [...] MDReport Verified Date/Time: 06/08/2019 16:45:20 Reading Location: [facility] Diagnostic Imaging Reading Room- [place] [address] [address], ABDOMEN, WITHOUT [id number] 16:45:00With PO contrastFINAL REPORT CT scan of the chest, abdomen and pelvis. MEDICAL HISTORY: Acute abdominal pain. Rule out bowel obstruction. COMPARISON STUDY: [...] noted. Bone windows demonstrate poststernotomy changes and de generative changes. IMPRESSION:1. Bilateral small pleural effusions with [...] MDReport Verified Date/Time: 06/08/2019 16:45:20 Reading Location: [facility] Diagnostic Imaging Reading Room- [place] [address] [address], PELVIS, WO [id number] 16:45:00FINAL REPORT CT scan of the chest, [...] catheter is present the bladder. An infrarenal a bdominal aortic aneurysm is seen measuring 4.1 x [...] above. No evidence of bowel obstruction. Signed: Ellne Ropere port Verified Date/Time: 06/08/2019 16:45:20 Reading Location: [facility] Diagnostic Imaging Reading Room- [place] [address] BASIC METABOLIC [id number] 12:00:00 Test Item Value Reference Range Comments SODIUM (BEAKER) (test 124 meq/L 136-145 code = 381) POTASSIUM (BEAKER) (test 4.7 meq/L 3.5-5.1 code = 379) CHLORIDE (BEAKER) (test 94 meq/L 98-107 code = 382) CO2 (BEAKER) (test code = 22 meq/L 22-29 355) BLOOD UREA NITROGEN 71 mg/dL 7-21 (BEAKER) (test code = 354) CREATININE (BEAKER) (test 2.79 mg/dL 0.57-1.25 code = 358) GLUCOSE RANDOM (BEAKER) 123 mg/dL 70-105 (test code = 652) CALCIUM (BEAKER) (test 7.9 mg/dL 8.4-10.2 code = 697) EGFR (BEAKER) (test code 23 mL/min/1.73 sq m EST IMATED GFR IS NOT = 1092) ACCURATE CREA TININE CLEARANCE IN PRE DICTING GLOMERULAR FILTR ATION RATE. ESTIMATED GFR IS NOT APPLICABLE F OR DIALYSIS PATIENT S. Systems Testing Laboratory Technician ID - [id number] 11:53:00 Test Item Value Reference Range Comments MAGNESIUM (BEAKER) (test code = 627) 2.2 mg/dL 1.6-2.6 Systems Testing Laboratory Technician ID - BSBLOOD GAS, [id number] 11:49:00 Test Item Value Reference Range Comments PH ARTERIAL (BEAKER) (test code = 383) 7.52 7.35-7.45 PCO2 ARTERIAL (BEAKER) (test code = 384) 30 mmHg 35-45 PO2 ARTERIAL (BEAKER) (test code = 385) 100 mmHg 80-90 O2 SATURATION ARTERIAL (BEAKER) (test code = 386) 98.1 % 96.0-97.0 HCO3 ARTERIAL (BEAKER) (test code = 388) 24 mmol/L 21-29 BASE EXCESS ARTERIAL (BEAKER) (test code = 387) 1.8 mmol/L -2.0-3.0 PATIENT TEMPERATURE (BEAKER) (test code = 1818) 37.5 C FIO2 (BEAKER) (test code = 1819) 36.0 % OXYGEN SATURATION, [id number] 11:47:00 Test Item Value Reference Range Comments O2 SATURATION (MEASURED) (BEAKER) (test code = 1455) 62.0 % CBC (HEMOGRAM ONLY)2019-06-08 11:34:00 Test Item Value Reference Range Comments WHITE BLOOD CELL COUNT (BEAKER) (test code = 21.6 K/ L 3.5 -10.5 775) RED BLOOD CELL COUNT (BEAKER) (test code = 761) 2.88 M/ L 4.63-6.08 HEMOGLOBIN (BEAKER) (test code = 410) 8.6 GM/DL 13.7-17.5 HEMATOCRIT (BEAKER) (test code = 411) 24.8 % 40.1-51.0 MEAN CORPUSCULAR VOLUME (BEAKER) (test code = 86.1 fL 79 .0-92.2 753) MEAN CORPUSCULAR HEMOGLOBIN (BEAKER) (test code 29.9 pg 25.7-32.2 = 751) MEAN CORPUSCULAR HEMOGLOBIN CONC (BEAKER) (test 34.7 GM/DL 32.3-36.5 code = 752) RED CELL DISTRIBUTION WIDTH (BEAKER) (test code 16.4 % 11.6-14.4 = 412) PLATELET COUNT (BEAKER) (test code = 756) 210 K/CU MM 150-45 0 MEAN PLATELET VOLUME (BEAKER) (test code = 754) 10.1 fL 9.4-12.4 NUCLEATED RED BLOOD CELLS (BEAKER) (test code = 0 /100 WBC 0-0 413) RAD, CHEST, 1 VIEW, NON [id number] 08:14:00Reason for exam:->s/p ACBShould this be performed at the bedside?->YesFINAL REPORT TECHNIQUE: Frontal and lateral chest radiographs dated 06/08/2019. CLINICAL HISTORY: S/P ACB COMPARISON STUDY: Chest radiograph dated 06/07/2019 IMPRESSION:Right-sided [place] catheter has been replaced by a vascular [...] [place] Verified Date/Time: 06/08/2019 08:14:47 Reading Location: [facility] Reading Room [id number] 06:12:00 Test Item Value Reference Range Comments PHOSPHORUS (BEAKER) (test code = 604) 2.3 mg/dL 2.3-4.7 Systems Testing Laboratory Technician ID - FREDERICK [id number] 06:12:00 Test Item Value Reference Range Comments MAGNESIUM (BEAKER) (test code = 627) 2.2 mg/dL 1.6-2.6 Systems Testing Laboratory Technician ID - FREDERICK WLACTATE DEHYDROGENASE (LDH)2019-06-08 06:12:00 Test Item Value Reference Range Comments LACTATE DEHYDROGENASE (BEAKER) (test code = 635) 1147 U/L 125-220 Systems Testing Laboratory Technician ID - FREDERICK WBASIC METABOLIC [id number] 05:02:00 Test Item Value Reference Range Comments SODIUM (BEAKER) (test 125 meq/L 136-145 code = 381) POTASSIUM (BEAKER) (test 4.5 meq/L 3.5-5.1 code = 379) CHLORIDE (BEAKER) (test 94 meq/L 98-107 code = 382) CO2 (BEAKER) (test code = 20 meq/L 22-29 355) BLOOD UREA NITROGEN 72 mg/dL 7-21 (BEAKER) (test code = 354) CREATININE (BEAKER) (test 2.72 mg/dL 0.57-1.25 code = 358) GLUCOSE RANDOM (BEAKER) 157 mg/dL 70-105 (test code = 652) CALCIUM (BEAKER) (test 8.0 mg/dL 8.4-10.2 code = 697) EGFR (BEAKER) (test code 23 mL/min/1.73 sq m EST IMATED GFR IS NOT = 1092) ACCURATE CREA TININE CLEARANCE IN PRE DICTING GLOMERULAR FILTR ATION RATE. ESTIMATED GFR IS NOT APPLICABLE F OR DIALYSIS PATIENT S. Systems Testing Laboratory Technician ID - [id number] 04:27:00 Test Item Value Reference Range Comments PARTIAL THROMBOPLASTIN TIME (BEAKER) (test code 86.1 seconds 22.5-36.0 = 760) OXYGEN SATURATION, [id number] 04:25:00 Test Item Value Reference Range Comments O2 SATURATION (MEASURED) (BEAKER) (test code = 1455) 44.7 % CBC (HEMOGRAM ONLY)2019-06-08 04:16:00 Test Item Value Reference Range Comments WHITE BLOOD CELL COUNT (BEAKER) (test code = 17.3 K/ L 3.5 -10.5 775) RED BLOOD CELL COUNT (BEAKER) (test code = 761) 2.94 M/ L 4.63-6.08 HEMOGLOBIN (BEAKER) (test code = 410) 8.6 GM/DL 13.7-17.5 HEMATOCRIT (BEAKER) (test code = 411) 25.5 % 40.1-51.0 MEAN CORPUSCULAR VOLUME (BEAKER) (test code = 86.7 fL 79 .0-92.2 753) MEAN CORPUSCULAR HEMOGLOBIN (BEAKER) (test code 29.3 pg 25.7-32.2 = 751) MEAN CORPUSCULAR HEMOGLOBIN CONC (BEAKER) (test 33.7 GM/DL 32.3-36.5 code = 752) RED CELL DISTRIBUTION WIDTH (BEAKER) (test code 16.1 % 11.6-14.4 = 412) PLATELET COUNT (BEAKER) (test code = 756) 214 K/CU MM 150-45 0 MEAN PLATELET VOLUME (BEAKER) (test code = 754) 10.1 fL 9.4-12.4 NUCLEATED RED BLOOD CELLS (BEAKER) (test code = 0 /100 WBC 0-0 413) [id number] 02:13:00 Test Item Value Reference Range Comments POTASSIUM (BEAKER) (test code = 379) 4.3 meq/L 3.5-5.1 Systems Testing Laboratory Technician ID - FREDERICK [id number] 00:11:00 Test Item Value Reference Range Comments MAGNESIUM (BEAKER) (test code = 627) 2.0 mg/dL 1.6-2.6 Systems Testing Laboratory Technician ID - BSOXYGEN SATURATION, [id number] 20:12:00 Test Item Value Reference Range Comments O2 SATURATION (MEASURED) (BEAKER) (test code = 1455) 69.5 % BASIC METABOLIC [id number] 17:41:00 Test Item Value Reference Range Comments SODIUM (BEAKER) (test 127 meq/L 136-145 code = 381) POTASSIUM (BEAKER) (test 4.3 meq/L 3.5-5.1 code = 379) CHLORIDE (BEAKER) (test 95 meq/L 98-107 code = 382) CO2 (BEAKER) (test code = 23 meq/L 22-29 355) BLOOD UREA NITROGEN 68 mg/dL 7-21 (BEAKER) (test code = 354) CREATININE (BEAKER) (test 2.68 mg/dL 0.57-1.25 code = 358) GLUCOSE RANDOM (BEAKER) 113 mg/dL 70-105 (test code = 652) CALCIUM (BEAKER) (test 8.2 mg/dL 8.4-10.2 code = 697) EGFR (BEAKER) (test code 24 mL/min/1.73 sq m EST IMATED GFR IS NOT = 1092) ACCURATE CREA TININE CLEARANCE IN PRE DICTING GLOMERULAR FILTR ATION RATE. ESTIMATED GFR IS NOT APPLICABLE F OR DIALYSIS PATIENT S. Systems Testing Laboratory Technician ID - [id number] 17:36:00 Test Item Value Reference Range Comments MAGNESIUM (BEAKER) (test code = 627) 2.0 mg/dL 1.6-2.6 Systems Testing Laboratory Technician ID - BSLACTATE DEHYDROGENASE (LDH)2019-06-07 17:36:00 Test Item Value Reference Range Comments LACTATE DEHYDROGENASE (BEAKER) (test code = 635) 1259 U/L 125-220 Systems Testing Laboratory Technician ID - BSCBC (HEMOGRAM ONLY)2019-06-07 17:01:00 Test Item Value Reference Range Comments WHITE BLOOD CELL COUNT (BEAKER) (test code = 12.0 K/ L 3.5 -10.5 775) RED BLOOD CELL COUNT (BEAKER) (test code = 761) 3.17 M/ L 4.63-6.08 HEMOGLOBIN (BEAKER) (test code = 410) 9.1 GM/DL 13.7-17.5 HEMATOCRIT (BEAKER) (test code = 411) 27.5 % 40.1-51.0 MEAN CORPUSCULAR VOLUME (BEAKER) (test code = 86.8 fL 79 .0-92.2 753) MEAN CORPUSCULAR HEMOGLOBIN (BEAKER) (test code 28.7 pg 25.7-32.2 = 751) MEAN CORPUSCULAR HEMOGLOBIN CONC (BEAKER) (test 33.1 GM/DL 32.3-36.5 code = 752) RED CELL DISTRIBUTION WIDTH (BEAKER) (test code 15.9 % 11.6-14.4 = 412) PLATELET COUNT (BEAKER) (test code = 756) 219 K/CU MM 150-45 0 MEAN PLATELET VOLUME (BEAKER) (test code = 754) 9.8 fL 9.4-12.4 NUCLEATED RED BLOOD CELLS (BEAKER) (test code = 0 /100 WBC 0-0 413) RAD, ABDOMEN/KUB, 1 VIEW [id number] 16:52:00Reason for exam:->Evaluate for SBOFINAL REPORT EXAM: [...] MDReport Verified Date/Time: 06/07/2019 16:52:41 Reading Location: [facility] Reading Room BLOOD GAS, [id number] 16:48:00 Test Item Value Reference Range Comments PH ARTERIAL (BEAKER) (test code = 383) 7.51 7.35-7.45 PCO2 ARTERIAL (BEAKER) (test code = 384) 29 mmHg 35-45 PO2 ARTERIAL (BEAKER) (test code = 385) 85 mmHg 80-90 O2 SATURATION ARTERIAL (BEAKER) (test code = 386) 97.4 % 96.0-97.0 HCO3 ARTERIAL (BEAKER) (test code = 388) 23 mmol/L 21-29 BASE EXCESS ARTERIAL (BEAKER) (test code = 387) 0.3 mmol/L -2.0-3.0 PATIENT TEMPERATURE (BEAKER) (test code = 1818) 36.5 C FIO2 (BEAKER) (test code = 1819) 21.0 % OXYGEN SATURATION, [id number] 16:47:00 Test Item Value Reference Range Comments O2 SATURATION (MEASURED) (BEAKER) (test code = 1455) 34.9 % OXYGEN SATURATION, [id number] 13:12:00 Test Item Value Reference Range Comments O2 SATURATION (MEASURED) (BEAKER) (test code = 1455) 45.0 % [id number] 06:24:00 Test Item Value Reference Range Comments THYROID STIMULATING HORMONE (BEAKER) (test code 2.27 uIU/mL 0.35-4.94 = 772) Systems Testing Laboratory Technician ID - MARISABEL MLACTATE DEHYDROGENASE (LDH)2019-06-07 06:04:00 Test Item Value Reference Range Comments LACTATE DEHYDROGENASE (BEAKER) 1360 U/L 125-220 S pecimen slightly hemolyzed (test code = 635) Systems Testing Laboratory Technician ID - MARISABEL MBASIC METABOLIC [id number] 06:04:00 Test Item Value Reference Range Comments SODIUM (BEAKER) (test 129 meq/L 136-145 code = 381) POTASSIUM (BEAKER) (test 4.5 meq/L 3.5-5.1 Specime n slightly code = 379) hemolyzed CHLORIDE (BEAKER) (test 96 meq/L 98-107 code = 382) CO2 (BEAKER) (test code = 24 meq/L 22-29 355) BLOOD UREA NITROGEN 74 mg/dL 7-21 (BEAKER) (test code = 354) CREATININE (BEAKER) (test 2.68 mg/dL 0.57-1.25 Specim en slightly code = 358) hemolyzed GLUCOSE RANDOM (BEAKER) 114 mg/dL 70-105 (test code = 652) CALCIUM (BEAKER) (test 8.1 mg/dL 8.4-10.2 code = 697) EGFR (BEAKER) (test code 24 mL/min/1.73 sq m EST IMATED GFR IS NOT = 1092) ACCURATE CREA TININE CLEARANCE IN PRE DICTING GLOMERULAR FILTR ATION RATE. ESTIMATED GFR IS NOT APPLICABLE F OR DIALYSIS PATIENT S. Systems Testing Laboratory Technician ID - MARISABEL [id number] 06:02:00 Test Item Value Reference Range Comments MAGNESIUM (BEAKER) (test code = 2.3 mg/dL 1.6-2.6 Specimen slightly hemolyzed 627) Systems Testing Laboratory Technician ID - MARISABEL [id number] 06:02:00 Test Item Value Reference Range Comments PHOSPHORUS (BEAKER) (test code 3.1 mg/dL 2.3-4.7 S pecimen slightly hemolyzed = 604) Systems Testing Laboratory Technician ID - MARISABEL MCBC W/PLT COUNT & AUTO [id number] 05:49:00 Test Item Value Reference Range Comments WHITE BLOOD CELL COUNT (BEAKER) (test code = 9.0 K/ L 3.5 -10.5 775) RED BLOOD CELL COUNT (BEAKER) (test code = 761) 2.91 M/ L 4.63-6.08 HEMOGLOBIN (BEAKER) (test code = 410) 8.4 GM/DL 13.7-17.5 HEMATOCRIT (BEAKER) (test code = 411) 25.0 % 40.1-51.0 MEAN CORPUSCULAR VOLUME (BEAKER) (test code = 85.9 fL 79 .0-92.2 753) MEAN CORPUSCULAR HEMOGLOBIN (BEAKER) (test code 28.9 pg 25.7-32.2 = 751) MEAN CORPUSCULAR HEMOGLOBIN CONC (BEAKER) (test 33.6 GM/DL 32.3-36.5 code = 752) RED CELL DISTRIBUTION WIDTH (BEAKER) (test code 15.8 % 11.6-14.4 = 412) PLATELET COUNT (BEAKER) (test code = 756) 188 K/CU MM 150-45 0 MEAN PLATELET VOLUME (BEAKER) (test code = 754) 10.4 fL 9.4-12.4 NUCLEATED RED BLOOD CELLS (BEAKER) (test code = 0 /100 WBC 0-0 413) NEUTROPHILS RELATIVE PERCENT (BEAKER) (test code 78 % = 429) LYMPHOCYTES RELATIVE PERCENT (BEAKER) (test code 7 % = 430) MONOCYTES RELATIVE PERCENT (BEAKER) (test code = 10 % 431) EOSINOPHILS RELATIVE PERCENT (BEAKER) (test code 3 % = 432) BASOPHILS RELATIVE PERCENT (BEAKER) (test code = 0 % 437) NEUTROPHILS ABSOLUTE COUNT (BEAKER) (test code = 7.00 K/ L 1.78-5.38 670) LYMPHOCYTES ABSOLUTE COUNT (BEAKER) (test code = 0.63 K/ L 1.32-3.57 414) MONOCYTES ABSOLUTE COUNT (BEAKER) (test code = 0.93 K/ L 0 .30-0.82 415) EOSINOPHILS ABSOLUTE COUNT (BEAKER) (test code = 0.30 K/ L 0.04-0.54 416) BASOPHILS ABSOLUTE COUNT (BEAKER) (test code = 0.02 K/ L 0 .01-0.08 417) IMMATURE GRANULOCYTES-RELATIVE PERCENT (BEAKER) 1 % 0-1 (test code = 2801) [id number] 05:46:00 Test Item Value Reference Range Comments PROTIME (BEAKER) (test code = 759) 18.6 seconds 11.9-14.2 INR (BEAKER) (test code = 370) 1.6 <=5.9 PARTIAL THROMBOPLASTIN TIME (BEAKER) (test code 86.0 seconds 22.5-36.0 = 760) Effective 10/12/2018: PT Reference Range ChangeNew: 11.9-14.2 Previous: 11.7- 14.7RECOMMENDED COUMADIN/WARFARIN INR THERAPY RANGESSTANDARD DOSE: 2.0-3.0 Includes: PROPHYLAXIS for venous thrombosis, systemic embolization; TREATMENT for venous thrombosis and/or pulmonary embolus.HIGH RISK: Target INR is2.5-3.5 for patients wiht mechanical heart valves.PH, [id number] 05:42:00 Test Item Value Reference Range Comments PH VENOUS (BEAKER) (test code = 701) 7.48 7.32-7.42 BLOOD GAS, [id number] 05:39:00 Test Item Value Reference Range Comments PH ARTERIAL (BEAKER) (test code = 383) 7.53 7.35-7.45 PCO2 ARTERIAL (BEAKER) (test code = 384) 31 mmHg 35-45 PO2 ARTERIAL (BEAKER) (test code = 385) 113 mmHg 80-90 O2 SATURATION ARTERIAL (BEAKER) (test code = 386) 98.6 % 96.0-97.0 HCO3 ARTERIAL (BEAKER) (test code = 388) 25 mmol/L 21-29 BASE EXCESS ARTERIAL (BEAKER) (test code = 387) 2.9 mmol/L -2.0-3.0 PATIENT TEMPERATURE (BEAKER) (test code = 1818) 37.0 C FIO2 (BEAKER) (test code = 1819) 36.0 % OXYGEN SATURATION, [id number] 05:09:00 Test Item Value Reference Range Comments O2 SATURATION (MEASURED) (BEAKER) (test code = 1455) 61.0 % RAD, CHEST, 1 VIEW, NON [id number] 04:54:00Reason for exam:->s/p ACBShould this be performed at the bedside?->YesFINAL REPORT RAD, CHEST, 1 VIEW, NON DEPT INDICATION: s/p ACB COMPARISON: Prior day's exam FINDINGS: Portable frontal view of the chest. IMPRESSION: Support Lines: Stable. Lungs and pleura: Improved aeration of the bilateral lung bases with persistent discoid atelectasis in the bilateral perihilar and infrahilar region. Small bilateral pleural effusions. No pneumothorax.Heart and mediastinum: Stable contours. Stable surgical changes.Additional findings: None. Signed: Divya Bar Verified Date/Time: 06/07/2019 04:54:22 ATE DEHYDROGENASE (LDH)2019-06-06 22:13:00 Test Item Value Reference Range Comments LACTATE DEHYDROGENASE (BEAKER) (test code = 635) 1170 U/L 125-220 Systems Testing Laboratory Technician ID - BSBASIC METABOLIC [id number] 22:05:00 Test Item Value Reference Range Comments SODIUM (BEAKER) (test 128 meq/L 136-145 code = 381) POTASSIUM (BEAKER) (test 3.8 meq/L 3.5-5.1 code = 379) CHLORIDE (BEAKER) (test 94 meq/L 98-107 code = 382) CO2 (BEAKER) (test code = 23 meq/L 22-29 355) BLOOD UREA NITROGEN 78 mg/dL 7-21 (BEAKER) (test code = 354) CREATININE (BEAKER) (test 2.90 mg/dL 0.57-1.25 code = 358) GLUCOSE RANDOM (BEAKER) 135 mg/dL 70-105 (test code = 652) CALCIUM (BEAKER) (test 8.0 mg/dL 8.4-10.2 code = 697) EGFR (BEAKER) (test code 22 mL/min/1.73 sq m EST IMATED GFR IS NOT = 1092) ACCURATE CREA TININE CLEARANCE IN PRE DICTING GLOMERULAR FILTR ATION RATE. ESTIMATED GFR IS NOT APPLICABLE F OR DIALYSIS PATIENT S. Systems Testing Laboratory Technician ID - [id number] 21:58:00 Test Item Value Reference Range Comments MAGNESIUM (BEAKER) (test code = 627) 2.4 mg/dL 1.6-2.6 Systems Testing Laboratory Technician ID - [id number] 21:26:00 Test Item Value Reference Range Comments PARTIAL THROMBOPLASTIN TIME (BEAKER) (test code 87.9 seconds 22.5-36.0 = 760) CBC (HEMOGRAM ONLY)2019-06-06 21:15:00 Test Item Value Reference Range Comments WHITE BLOOD CELL COUNT (BEAKER) (test code = 9.1 K/ L 3.5 -10.5 775) RED BLOOD CELL COUNT (BEAKER) (test code = 761) 2.92 M/ L 4.63-6.08 HEMOGLOBIN (BEAKER) (test code = 410) 8.4 GM/DL 13.7-17.5 HEMATOCRIT (BEAKER) (test code = 411) 25.6 % 40.1-51.0 MEAN CORPUSCULAR VOLUME (BEAKER) (test code = 87.7 fL 79 .0-92.2 753) MEAN CORPUSCULAR HEMOGLOBIN (BEAKER) (test code 28.8 pg 25.7-32.2 = 751) MEAN CORPUSCULAR HEMOGLOBIN CONC (BEAKER) (test 32.8 GM/DL 32.3-36.5 code = 752) RED CELL DISTRIBUTION WIDTH (BEAKER) (test code 15.5 % 11.6-14.4 = 412) PLATELET COUNT (BEAKER) (test code = 756) 195 K/CU MM 150-45 0 MEAN PLATELET VOLUME (BEAKER) (test code = 754) 10.2 fL 9.4-12.4 NUCLEATED RED BLOOD CELLS (BEAKER) (test code = 0 /100 WBC 0-0 413) [id number] 16:45:00 Test Item Value Reference Range Comments MAGNESIUM (BEAKER) (test code = 627) 1.9 mg/dL 1.6-2.6 Systems Testing Laboratory Technician ID - [id number] 16:29:00 Test Item Value Reference Range Comments PARTIAL THROMBOPLASTIN TIME (BEAKER) (test code 75.1 seconds 22.5-36.0 = 760) HEPARIN [id number] 14:48:00 Test Item Value Reference Range Comments HEPARIN ANTIBODY (BEAKER) (test code = 646) Negative Nega tive HEPARIN ANTIBODY OD (BEAKER) (test code = 2659) 0.171 <0.400 4T TOTAL SCORE (BEAKER) (test code = 2661) 5 Probability of HIT based on scoring system: 6-8 = High probability; 4-5 = intermediate probability;0-3 = low probabilityOXYGEN SATURATION, MEASURED 2019-06-06 12:29:00 Test Item Value Reference Range Comments O2 SATURATION (MEASURED) (BEAKER) (test code = 1455) 55.1 % RAD, CHEST, 1 VIEW, NON [id number] 08:23:00Reason for exam:->s/p ACBShould this be performed at the bedside?->YesFINAL REPORT TECHNIQUE: Frontal chest radiograph dated 06/06/2019. CLINICAL HISTORY: S/P ACB COMPARISON STUDY: Chest radiograph dated 06/05/2019 IMPRESSION:Life support tubes, lines and devices are stable. No change in interstitial and airspace disease bilaterally. Stable right pleural effusion. No pneumothorax. Cardiomediastinal silhouette is stable in size. Midline sternotomy wires are intact and well aligned. Signed: Janes Dsouza Verified Date/Time: 06/06/2019 08:23:36 Reading Location: [facility] Mammo Reading Room ATE DEHYDROGENASE (LDH)2019-06-06 07:34:00 Test Item Value Reference Range Comments LACTATE DEHYDROGENASE (BEAKER) (test code = 635) 1201 U/L 125-220 Systems Testing Laboratory Technician ID - [id number] 05:07:00 Test Item Value Reference Range Comments PHOSPHORUS (BEAKER) (test code = 604) 3.8 mg/dL 2.3-4.7 Systems Testing Laboratory Technician ID - [id number] 05:07:00 Test Item Value Reference Range Comments MAGNESIUM (BEAKER) (test code = 627) 1.9 mg/dL 1.6-2.6 Systems Testing Laboratory Technician ID - LABASIC METABOLIC [id number] 05:07:00 Test Item Value Reference Range Comments SODIUM (BEAKER) (test 129 meq/L 136-145 code = 381) POTASSIUM (BEAKER) (test 3.6 meq/L 3.5-5.1 code = 379) CHLORIDE (BEAKER) (test 93 meq/L 98-107 code = 382) CO2 (BEAKER) (test code = 27 meq/L 22-29 355) BLOOD UREA NITROGEN 72 mg/dL 7-21 (BEAKER) (test code = 354) CREATININE (BEAKER) (test 2.93 mg/dL 0.57-1.25 code = 358) GLUCOSE RANDOM (BEAKER) 118 mg/dL 70-105 (test code = 652) CALCIUM (BEAKER) (test 8.3 mg/dL 8.4-10.2 code = 697) EGFR (BEAKER) (test code 21 mL/min/1.73 sq m EST IMATED GFR IS NOT = 1092) ACCURATE CREA TININE CLEARANCE IN PRE DICTING GLOMERULAR FILTR ATION RATE. ESTIMATED GFR IS NOT APPLICABLE F OR DIALYSIS PATIENT S. Systems Testing Laboratory Technician ID - LAOXYGEN SATURATION, [id number] 04:48:00 Test Item Value Reference Range Comments O2 SATURATION (MEASURED) (BEAKER) (test code = 1455) 65.2 % CALCIUM, [id number] 04:45:00 Test Item Value Reference Range Comments CALCIUM IONIZED (BEAKER) (test code = 698) 1.07 mmol/L 1.12- 1.27 PH, BLOOD (BEAKER) (test code = 1810) 7.47 CBC (HEMOGRAM ONLY)2019-06-06 04:45:00 Test Item Value Reference Range Comments WHITE BLOOD CELL COUNT (BEAKER) (test code = 9.6 K/ L 3.5 -10.5 775) RED BLOOD CELL COUNT (BEAKER) (test code = 761) 2.98 M/ L 4.63-6.08 HEMOGLOBIN (BEAKER) (test code = 410) 8.6 GM/DL 13.7-17.5 HEMATOCRIT (BEAKER) (test code = 411) 25.5 % 40.1-51.0 MEAN CORPUSCULAR VOLUME (BEAKER) (test code = 85.6 fL 79 .0-92.2 753) MEAN CORPUSCULAR HEMOGLOBIN (BEAKER) (test code 28.9 pg 25.7-32.2 = 751) MEAN CORPUSCULAR HEMOGLOBIN CONC (BEAKER) (test 33.7 GM/DL 32.3-36.5 code = 752) RED CELL DISTRIBUTION WIDTH (BEAKER) (test code 15.4 % 11.6-14.4 = 412) PLATELET COUNT (BEAKER) (test code = 756) 191 K/CU MM 150-45 0 MEAN PLATELET VOLUME (BEAKER) (test code = 754) 10.2 fL 9.4-12.4 NUCLEATED RED BLOOD CELLS (BEAKER) (test code = 0 /100 WBC 0-0 413) BLOOD GAS, [id number] 04:44:00 Test Item Value Reference Range Comments PH ARTERIAL (BEAKER) (test code = 383) 7.48 7.35-7.45 PCO2 ARTERIAL (BEAKER) (test code = 384) 38 mmHg 35-45 PO2 ARTERIAL (BEAKER) (test code = 385) 79 mmHg 80-90 O2 SATURATION ARTERIAL (BEAKER) (test code = 386) 96.5 % 96.0-97.0 HCO3 ARTERIAL (BEAKER) (test code = 388) 28 mmol/L 21-29 BASE EXCESS ARTERIAL (BEAKER) (test code = 387) 3.8 mmol/L -2.0-3.0 PATIENT TEMPERATURE (BEAKER) (test code = 1818) 36.7 C FIO2 (BEAKER) (test code = 1819) 36.0 % [id number] 02:44:00 Test Item Value Reference Range Comments PARTIAL THROMBOPLASTIN TIME (BEAKER) (test code 81.9 seconds 22.5-36.0 = 760) BASIC METABOLIC [id number] 23:02:00 Test Item Value Reference Range Comments SODIUM (BEAKER) (test 127 meq/L 136-145 code = 381) POTASSIUM (BEAKER) (test 3.6 meq/L 3.5-5.1 code = 379) CHLORIDE (BEAKER) (test 93 meq/L 98-107 code = 382) CO2 (BEAKER) (test code = 24 meq/L 22-29 355) BLOOD UREA NITROGEN 82 mg/dL 7-21 (BEAKER) (test code = 354) CREATININE (BEAKER) (test 3.01 mg/dL 0.57-1.25 code = 358) GLUCOSE RANDOM (BEAKER) 129 mg/dL 70-105 (test code = 652) CALCIUM (BEAKER) (test 8.3 mg/dL 8.4-10.2 code = 697) EGFR (BEAKER) (test code 21 mL/min/1.73 sq m EST IMATED GFR IS NOT = 1092) ACCURATE CREA TININE CLEARANCE IN PRE DICTING GLOMERULAR FILTR ATION RATE. ESTIMATED GFR IS NOT APPLICABLE F OR DIALYSIS PATIENT S. Systems Testing Laboratory Technician ID - [id number] 22:50:00 Test Item Value Reference Range Comments MAGNESIUM (BEAKER) (test code = 627) 2.0 mg/dL 1.6-2.6 Systems Testing Laboratory Technician ID - BSOXYGEN SATURATION, [id number] 22:39:00 Test Item Value Reference Range Comments O2 SATURATION (MEASURED) (BEAKER) (test code = 1455) 57.2 % CBC (HEMOGRAM ONLY)2019-06-05 22:31:00 Test Item Value Reference Range Comments WHITE BLOOD CELL COUNT (BEAKER) (test code = 9.8 K/ L 3.5 -10.5 775) RED BLOOD CELL COUNT (BEAKER) (test code = 761) 3.04 M/ L 4.63-6.08 HEMOGLOBIN (BEAKER) (test code = 410) 8.9 GM/DL 13.7-17.5 HEMATOCRIT (BEAKER) (test code = 411) 26.0 % 40.1-51.0 MEAN CORPUSCULAR VOLUME (BEAKER) (test code = 85.5 fL 79 .0-92.2 753) MEAN CORPUSCULAR HEMOGLOBIN (BEAKER) (test code 29.3 pg 25.7-32.2 = 751) MEAN CORPUSCULAR HEMOGLOBIN CONC (BEAKER) (test 34.2 GM/DL 32.3-36.5 code = 752) RED CELL DISTRIBUTION WIDTH (BEAKER) (test code 15.2 % 11.6-14.4 = 412) PLATELET COUNT (BEAKER) (test code = 756) 183 K/CU MM 150-45 0 MEAN PLATELET VOLUME (BEAKER) (test code = 754) 10.2 fL 9.4-12.4 NUCLEATED RED BLOOD CELLS (BEAKER) (test code = 0 /100 WBC 0-0 413) OXYGEN SATURATION, [id number] 15:52:00 Test Item Value Reference Range Comments O2 SATURATION (MEASURED) (BEAKER) (test code = 1455) 49.7 % [id number] 15:43:00 Test Item Value Reference Range Comments MAGNESIUM (BEAKER) (test code = 627) 2.0 mg/dL 1.6-2.6 Systems Testing Laboratory Technician ID - [id number] 15:42:00 Test Item Value Reference Range Comments PARTIAL THROMBOPLASTIN TIME (BEAKER) (test code 84.7 seconds 22.5-36.0 = 760) Draw baseline aPTT prior to infusionCBC (HEMOGRAM ONLY)2019-06-05 15:24:00 Test Item Value Reference Range Comments WHITE BLOOD CELL COUNT (BEAKER) (test code = 10.9 K/ L 3.5 -10.5 775) RED BLOOD CELL COUNT (BEAKER) (test code = 761) 2.96 M/ L 4.63-6.08 HEMOGLOBIN (BEAKER) (test code = 410) 8.7 GM/DL 13.7-17.5 HEMATOCRIT (BEAKER) (test code = 411) 25.4 % 40.1-51.0 MEAN CORPUSCULAR VOLUME (BEAKER) (test code = 85.8 fL 79 .0-92.2 753) MEAN CORPUSCULAR HEMOGLOBIN (BEAKER) (test code 29.4 pg 25.7-32.2 = 751) MEAN CORPUSCULAR HEMOGLOBIN CONC (BEAKER) (test 34.3 GM/DL 32.3-36.5 code = 752) RED CELL DISTRIBUTION WIDTH (BEAKER) (test code 15.1 % 11.6-14.4 = 412) PLATELET COUNT (BEAKER) (test code = 756) 201 K/CU MM 150-45 0 MEAN PLATELET VOLUME (BEAKER) (test code = 754) 10.2 fL 9.4-12.4 NUCLEATED RED BLOOD CELLS (BEAKER) (test code = 0 /100 WBC 0-0 413) CREATININE, RANDOM [id number] 13:58:00 Test Item Value Reference Range Comments CREATININE URINE (BEAKER) (test code = 375) 22.9 mg/dL Reference Range: No NormalsOperator ID - NTPOSMOLALITY, [id number] 13:46:00 Test Item Value Reference Range Comments OSMOLALITY URINE (BEAKER) (test code = 614) 298 mOsm/kg 40-1 ,400 OXYGEN SATURATION, [id number] 12:16:00 Test Item Value Reference Range Comments O2 SATURATION (MEASURED) (BEAKER) (test code = 1455) 46.8 % LACTATE DEHYDROGENASE (LDH)2019-06-05 11:49:00 Test Item Value Reference Range Comments LACTATE DEHYDROGENASE (BEAKER) (test code = 635) 1289 U/L 125-220 Systems Testing Laboratory Technician ID - NTPPLASMA FREE [id number] 10:20:00 Test Item Value Reference Range Comments HEMOGLOBIN PLASMA (BEAKER) (test code = 1054) 120.0 mg/dl 0. 0-30.0 CHLORIDE, RANDOM [id number] 09:51:00 Test Item Value Reference Range Comments CHLORIDE URINE (BEAKER) (test code = 682) 94 meq/L Reference Range: No NormalsOperator ID - NTPPOTASSIUM, RANDOM [id number] 09:51:00 Test Item Value Reference Range Comments POTASSIUM URINE (BEAKER) (test code = 195) 19.7 meq/L Reference Range: No NormalsOperator ID - NTPSODIUM, RANDOM [id number] 09:51:00 Test Item Value Reference Range Comments SODIUM URINE (BEAKER) (test code = 243) 83 meq/L Reference Range: No NormalsOperator ID - NTPUREA NITROGEN, RANDOM URINE 2019-06-05 09:51:00 Test Item Value Reference Range Comments UREA NITROGEN URINE (BEAKER) (test code = 538) 209 mg/dL Reference Range: No NormalsOperator ID - NTPURIC ACID, RANDOM [id number] 09:51:00 Test Item Value Reference Range Comments URIC ACID, URINE (BEAKER) (test code = 1572) 12.5 mg/dL Reference Range: No NormalsOperator ID - NTPOperator ID - NTPHEPARIN ASSAY - LOW MOLECULAR [id number] 09:34:00 Test Item Value Reference Range Comments LOVENOX-ANTI 10A (BEAKER) (test code = 1605) 0.15 u/ml 0.6 0-2.00 Anti-Factor 10-A Level (Heparin Assay for Low Molecular Weight Heparin)Monitoring Guidelines: Blood samples should be obtained 4 hours post subcutaneous injection (time of Peak level) Therapeutic Peak Levels: 0.6-1.0 units/mL twice daily enoxaparin 1.0-2.0 units/mL once daily enoxaparinRef: CHEST 2012;[id number] (TEG)2019-06-05 09:30:00 Test Item Value Reference Range Comments TEG ACTIVATED CLOTTING TIME (BEAKER) (test code 13.1 minutes 4.0-7.0 = 1407) TEG FIBRINOGEN ACTIVITY (BEAKER) (test code = 46.9 degrees 61 .0-73.0 1408) TEG PLT. AGGREGATION (BEAKER) (test code = 78.6 MM 55.0- 65.0 1409) TEG FIBRINOLYSIS (BEAKER) (test code = 1410) 0.0 % 0.0 -5.0 TGH ACTIVATED CLOTTING TIME (BEAKER) (test code 5.8 minutes 4.0-7.0 = 1411) TGH FIBRINOGEN ACTIVITY (BEAKER) (test code = 77.0 degrees 61 .0-73.0 1412) TGH PLT. AGGREGATION (BEAKER) (test code = 76.0 MM 55.0- 65.0 1413) TGH FIBRINOLYSIS (BEAKER) (test code = 1414) 1.4 % 0.0 -5.0 BLOOD GAS, [id number] 09:02:00 Test Item Value Reference Range Comments PH ARTERIAL (BEAKER) (test code = 383) 7.51 7.35-7.45 PCO2 ARTERIAL (BEAKER) (test code = 384) 34 mmHg 35-45 PO2 ARTERIAL (BEAKER) (test code = 385) 119 mmHg 80-90 O2 SATURATION ARTERIAL (BEAKER) (test code = 386) 98.7 % 96.0-97.0 HCO3 ARTERIAL (BEAKER) (test code = 388) 26 mmol/L 21-29 BASE EXCESS ARTERIAL (BEAKER) (test code = 387) 2.8 mmol/L -2.0-3.0 PATIENT TEMPERATURE (BEAKER) (test code = 1818) 36.6 C FIO2 (BEAKER) (test code = 1819) 44.0 % BASIC METABOLIC [id number] 08:42:00 Test Item Value Reference Range Comments SODIUM (BEAKER) (test 128 meq/L 136-145 code = 381) POTASSIUM (BEAKER) (test 3.5 meq/L 3.5-5.1 code = 379) CHLORIDE (BEAKER) (test 92 meq/L 98-107 code = 382) CO2 (BEAKER) (test code = 26 meq/L 22-29 355) BLOOD UREA NITROGEN 72 mg/dL 7-21 (BEAKER) (test code = 354) CREATININE (BEAKER) (test 2.97 mg/dL 0.57-1.25 code = 358) GLUCOSE RANDOM (BEAKER) 126 mg/dL 70-105 (test code = 652) CALCIUM (BEAKER) (test 9.0 mg/dL 8.4-10.2 code = 697) EGFR (BEAKER) (test code 21 mL/min/1.73 sq m EST IMATED GFR IS NOT = 1092) ACCURATE CREA TININE CLEARANCE IN PRE DICTING GLOMERULAR FILTR ATION RATE. ESTIMATED GFR IS NOT APPLICABLE F OR DIALYSIS PATIENT S. [employer] Laboratory Technician ID - [id number] 08:33:00 Test Item Value Reference Range Comments MAGNESIUM (BEAKER) (test code = 627) 2.1 mg/dL 1.6-2.6 Systems Testing Laboratory Technician ID - [id number] 08:26:00 Test Item Value Reference Range Comments PROTIME (BEAKER) (test code = 759) 15.1 seconds 11.9-14.2 INR (BEAKER) (test code = 370) 1.2 <=5.9 PARTIAL THROMBOPLASTIN TIME (BEAKER) (test code 71.2 seconds 22.5-36.0 = 760) Effective 10/12/2018: PT Reference Range ChangeNew: 11.9-14.2 Previous: 11.7- 14.7RECOMMENDED COUMADIN/WARFARIN INR THERAPY RANGESSTANDARD DOSE: 2.0-3.0 Includes: PROPHYLAXIS for venous thrombosis, systemic embolization; TREATMENT for venous thrombosis and/or pulmonary embolus.HIGH RISK: Target INR is2.5-3.5 for patients wiht mechanical heart valves.CBC W/PLT COUNT & AUTO [id number] 08:21:00 Test Item Value Reference Range Comments WHITE BLOOD CELL COUNT (BEAKER) (test code = 10.0 K/ L 3.5 -10.5 775) RED BLOOD CELL COUNT (BEAKER) (test code = 761) 2.80 M/ L 4.63-6.08 HEMOGLOBIN (BEAKER) (test code = 410) 8.2 GM/DL 13.7-17.5 HEMATOCRIT (BEAKER) (test code = 411) 23.9 % 40.1-51.0 MEAN CORPUSCULAR VOLUME (BEAKER) (test code = 85.4 fL 79 .0-92.2 753) MEAN CORPUSCULAR HEMOGLOBIN (BEAKER) (test code 29.3 pg 25.7-32.2 = 751) MEAN CORPUSCULAR HEMOGLOBIN CONC (BEAKER) (test 34.3 GM/DL 32.3-36.5 code = 752) RED CELL DISTRIBUTION WIDTH (BEAKER) (test code 15.6 % 11.6-14.4 = 412) PLATELET COUNT (BEAKER) (test code = 756) 201 K/CU MM 150-45 0 MEAN PLATELET VOLUME (BEAKER) (test code = 754) 10.1 fL 9.4-12.4 NUCLEATED RED BLOOD CELLS (BEAKER) (test code = 0 /100 WBC 0-0 413) NEUTROPHILS RELATIVE PERCENT (BEAKER) (test code 81 % = 429) LYMPHOCYTES RELATIVE PERCENT (BEAKER) (test code 5 % = 430) MONOCYTES RELATIVE PERCENT (BEAKER) (test code = 10 % 431) EOSINOPHILS RELATIVE PERCENT (BEAKER) (test code 3 % = 432) BASOPHILS RELATIVE PERCENT (BEAKER) (test code = 0 % 437) NEUTROPHILS ABSOLUTE COUNT (BEAKER) (test code = 8.08 K/ L 1.78-5.38 670) LYMPHOCYTES ABSOLUTE COUNT (BEAKER) (test code = 0.54 K/ L 1.32-3.57 414) MONOCYTES ABSOLUTE COUNT (BEAKER) (test code = 0.97 K/ L 0 .30-0.82 415) EOSINOPHILS ABSOLUTE COUNT (BEAKER) (test code = 0.28 K/ L 0.04-0.54 416) BASOPHILS ABSOLUTE COUNT (BEAKER) (test code = 0.02 K/ L 0 .01-0.08 417) IMMATURE GRANULOCYTES-RELATIVE PERCENT (BEAKER) 1 % 0-1 (test code = 2801) BASIC METABOLIC [id number] 07:24:00 Test Item Value Reference Range Comments SODIUM (BEAKER) (test 129 meq/L 136-145 code = 381) POTASSIUM (BEAKER) (test 3.7 meq/L 3.5-5.1 code = 379) CHLORIDE (BEAKER) (test 94 meq/L 98-107 code = 382) CO2 (BEAKER) (test code = 25 meq/L 22-29 355) BLOOD UREA NITROGEN 74 mg/dL 7-21 (BEAKER) (test code = 354) CREATININE (BEAKER) (test 2.96 mg/dL 0.57-1.25 code = 358) GLUCOSE RANDOM (BEAKER) 121 mg/dL 70-105 (test code = 652) CALCIUM (BEAKER) (test 8.6 mg/dL 8.4-10.2 code = 697) EGFR (BEAKER) (test code 21 mL/min/1.73 sq m EST IMATED GFR IS NOT = 1092) ACCURATE CREA TININE CLEARANCE IN PRE DICTING GLOMERULAR FILTR ATION RATE. ESTIMATED GFR IS NOT APPLICABLE F OR DIALYSIS PATIENT S. Systems Testing Laboratory Technician ID - NTPVANCOMYCIN LEVEL, [id number] 03:59:00 Test Item Value Reference Range Comments VANCOMYCIN RANDOM (BEAKER) (test code = 523) 17.8 ug/mL Reference Range: No NormalsOperator ID - RUDI [id number] 03:52:00 Test Item Value Reference Range Comments PHOSPHORUS (BEAKER) (test code = 604) 4.4 mg/dL 2.3-4.7 Systems Testing Laboratory Technician ID - RUDI LLACTATE DEHYDROGENASE (LDH)2019-06-05 03:52:00 Test Item Value Reference Range Comments LACTATE DEHYDROGENASE (BEAKER) (test code = 635) 968 U/L 125-220 Systems Testing Laboratory Technician ID - RUDI ZULUAGAACTIC ACID, [id number] 03:48:00 Test Item Value Reference Range Comments LACTATE BLOOD ARTERIAL (2) 0.8 mmol/L 0.5-2.2 Speci men slightly hemolyzed (BEAKER) (test code = 2874) Systems Testing Laboratory Technician ID - RUDI [id number] 03:44:00 Test Item Value Reference Range Comments PARTIAL THROMBOPLASTIN TIME (BEAKER) (test code 78.3 seconds 22.5-36.0 = 760) OXYGEN SATURATION, [id number] 03:42:00 Test Item Value Reference Range Comments O2 SATURATION (MEASURED) (BEAKER) (test code = 1455) 57.9 % RAD, CHEST, 1 VIEW, NON [id number] 03:35:00Reason for exam:->s/p ACBShould this be performed at the bedside?->YesFINAL REPORT RAD, CHEST, 1 VIEW, NON DEPT INDICATION: s/p ACB COMPARISON: Prior day's exam FINDINGS: Portable frontal view of the chest. IMPRESSION: Support Lines: Right IJ [place] loops within the mid SVC level with [...] MDReport Verified Date/Time: 06/05/2019 03:35:51 CBC (HEMOGRAM ONLY)2019-06-05 03:30:00 Test Item Value Reference Range Comments WHITE BLOOD CELL COUNT (BEAKER) (test code = 9.5 K/ L 3.5 -10.5 775) RED BLOOD CELL COUNT (BEAKER) (test code = 761) 2.63 M/ L 4.63-6.08 HEMOGLOBIN (BEAKER) (test code = 410) 7.7 GM/DL 13.7-17.5 HEMATOCRIT (BEAKER) (test code = 411) 22.5 % 40.1-51.0 MEAN CORPUSCULAR VOLUME (BEAKER) (test code = 85.6 fL 79 .0-92.2 753) MEAN CORPUSCULAR HEMOGLOBIN (BEAKER) (test code 29.3 pg 25.7-32.2 = 751) MEAN CORPUSCULAR HEMOGLOBIN CONC (BEAKER) (test 34.2 GM/DL 32.3-36.5 code = 752) RED CELL DISTRIBUTION WIDTH (BEAKER) (test code 15.6 % 11.6-14.4 = 412) PLATELET COUNT (BEAKER) (test code = 756) 197 K/CU MM 150-45 0 MEAN PLATELET VOLUME (BEAKER) (test code = 754) 10.3 fL 9.4-12.4 NUCLEATED RED BLOOD CELLS (BEAKER) (test code = 0 /100 WBC 0-0 413) BASIC METABOLIC [id number] 01:17:00 Test Item Value Reference Range Comments SODIUM (BEAKER) (test 127 meq/L 136-145 code = 381) POTASSIUM (BEAKER) (test 3.8 meq/L 3.5-5.1 Specime n slightly code = 379) hemolyzed CHLORIDE (BEAKER) (test 93 meq/L 98-107 code = 382) CO2 (BEAKER) (test code = 23 meq/L 22-29 355) BLOOD UREA NITROGEN 75 mg/dL 7-21 (BEAKER) (test code = 354) CREATININE (BEAKER) (test 2.92 mg/dL 0.57-1.25 Specim en slightly code = 358) hemolyzed GLUCOSE RANDOM (BEAKER) 121 mg/dL 70-105 (test code = 652) CALCIUM (BEAKER) (test 8.4 mg/dL 8.4-10.2 code = 697) EGFR (BEAKER) (test code 21 mL/min/1.73 sq m EST IMATED GFR IS NOT = 1092) ACCURATE CREA TININE CLEARANCE IN PRE DICTING GLOMERULAR FILTR ATION RATE. ESTIMATED GFR IS NOT APPLICABLE F OR DIALYSIS PATIENT S. Systems Testing Laboratory Technician ID - RUDI [id number] 01:01:00 Test Item Value Reference Range Comments MAGNESIUM (BEAKER) (test code = 2.1 mg/dL 1.6-2.6 Specimen slightly hemolyzed 627) Systems Testing Laboratory Technician ID - RUDI LBASIC METABOLIC [id number] 16:20:00 Test Item Value Reference Range Comments SODIUM (BEAKER) (test 130 meq/L 136-145 code = 381) POTASSIUM (BEAKER) (test 3.4 meq/L 3.5-5.1 code = 379) CHLORIDE (BEAKER) (test 95 meq/L 98-107 code = 382) CO2 (BEAKER) (test code = 25 meq/L 22-29 355) BLOOD UREA NITROGEN 73 mg/dL 7-21 (BEAKER) (test code = 354) CREATININE (BEAKER) (test 3.02 mg/dL 0.57-1.25 code = 358) GLUCOSE RANDOM (BEAKER) 137 mg/dL 70-105 (test code = 652) CALCIUM (BEAKER) (test 8.3 mg/dL 8.4-10.2 code = 697) EGFR (BEAKER) (test code 21 mL/min/1.73 sq m EST IMATED GFR IS NOT = 1092) ACCURATE CREA TININE CLEARANCE IN PRE DICTING GLOMERULAR FILTR ATION RATE. ESTIMATED GFR IS NOT APPLICABLE F OR DIALYSIS PATIENT S. Systems Testing Laboratory Technician ID - [facility] [id number] 16:14:00 Test Item Value Reference Range Comments MAGNESIUM (BEAKER) (test code = 627) 2.1 mg/dL 1.6-2.6 Systems Testing Laboratory Technician ID - [facility] [id number] 16:05:00 Test Item Value Reference Range Comments PARTIAL THROMBOPLASTIN TIME (BEAKER) (test code 75.2 seconds 22.5-36.0 = 760) OXYGEN SATURATION, [id number] 14:17:00 Test Item Value Reference Range Comments O2 SATURATION (MEASURED) (BEAKER) (test code = 1455) 59.0 % LACTATE DEHYDROGENASE (LDH)2019-06-04 13:18:00 Test Item Value Reference Range Comments LACTATE DEHYDROGENASE (BEAKER) (test code = 635) 767 U/L 125-220 Systems Testing Laboratory Technician ID - [facility] [id number] 11:17:00 Test Item Value Reference Range Comments PARTIAL THROMBOPLASTIN TIME (BEAKER) (test code 75.1 seconds 22.5-36.0 = 760) VANCOMYCIN LEVEL, [id number] 10:21:00 Test Item Value Reference Range Comments VANCOMYCIN RANDOM (BEAKER) (test code = 523) 24.3 ug/mL Reference Range: No NormalsOperator ID - [facility] CBASIC METABOLIC [id number] 06:10:00 Test Item Value Reference Range Comments SODIUM (BEAKER) (test 131 meq/L 136-145 code = 381) POTASSIUM (BEAKER) (test 3.7 meq/L 3.5-5.1 code = 379) CHLORIDE (BEAKER) (test 96 meq/L 98-107 code = 382) CO2 (BEAKER) (test code = 22 meq/L 22-29 355) BLOOD UREA NITROGEN 76 mg/dL 7-21 (BEAKER) (test code = 354) CREATININE (BEAKER) (test 3.28 mg/dL 0.57-1.25 code = 358) GLUCOSE RANDOM (BEAKER) 133 mg/dL 70-105 (test code = 652) CALCIUM (BEAKER) (test 8.7 mg/dL 8.4-10.2 code = 697) EGFR (BEAKER) (test code 19 mL/min/1.73 sq m EST IMATED GFR IS NOT = 1092) ACCURATE CREA TININE CLEARANCE IN PRE DICTING GLOMERULAR FILTR ATION RATE. ESTIMATED GFR IS NOT APPLICABLE F OR DIALYSIS PATIENT S. Systems Testing Laboratory Technician ID - RUDI [id number] 06:07:00 Test Item Value Reference Range Comments PHOSPHORUS (BEAKER) (test code = 604) 5.7 mg/dL 2.3-4.7 Systems Testing Laboratory Technician ID - RUDI [id number] 06:07:00 Test Item Value Reference Range Comments MAGNESIUM (BEAKER) (test code = 627) 2.2 mg/dL 1.6-2.6 Systems Testing Laboratory Technician ID - RUDI LLACTATE DEHYDROGENASE (LDH)2019-06-04 06:07:00 Test Item Value Reference Range Comments LACTATE DEHYDROGENASE (BEAKER) (test code = 635) 732 U/L 125-220 Systems Testing Laboratory Technician ID - RUDI LOXYGEN SATURATION, [id number] 05:12:00 Test Item Value Reference Range Comments O2 SATURATION (MEASURED) (BEAKER) (test code = 1455) 61.9 % LACTIC ACID, [id number] 05:09:00 Test Item Value Reference Range Comments LACTATE BLOOD ARTERIAL (2) (BEAKER) (test code = 1.0 mmol/L 0.5-2.2 2874) Systems Testing Laboratory Technician ID - RUDI LBLOOD GAS, [id number] 05:06:00 Test Item Value Reference Range Comments PH ARTERIAL (BEAKER) (test code = 383) 7.50 7.35-7.45 PCO2 ARTERIAL (BEAKER) (test code = 384) 32 mmHg 35-45 PO2 ARTERIAL (BEAKER) (test code = 385) 81 mmHg 80-90 O2 SATURATION ARTERIAL (BEAKER) (test code = 386) 97.0 % 96.0-97.0 HCO3 ARTERIAL (BEAKER) (test code = 388) 24 mmol/L 21-29 BASE EXCESS ARTERIAL (BEAKER) (test code = 387) 0.9 mmol/L -2.0-3.0 PATIENT TEMPERATURE (BEAKER) (test code = 1818) 36.8 C FIO2 (BEAKER) (test code = 1819) 60.0 % [id number] 05:05:00 Test Item Value Reference Range Comments PARTIAL THROMBOPLASTIN TIME (BEAKER) (test code 63.1 seconds 22.5-36.0 = 760) CBC (HEMOGRAM ONLY)2019-06-04 05:02:00 Test Item Value Reference Range Comments WHITE BLOOD CELL COUNT (BEAKER) (test code = 9.3 K/ L 3.5 -10.5 775) RED BLOOD CELL COUNT (BEAKER) (test code = 761) 2.87 M/ L 4.63-6.08 HEMOGLOBIN (BEAKER) (test code = 410) 8.5 GM/DL 13.7-17.5 HEMATOCRIT (BEAKER) (test code = 411) 24.5 % 40.1-51.0 MEAN CORPUSCULAR VOLUME (BEAKER) (test code = 85.4 fL 79 .0-92.2 753) MEAN CORPUSCULAR HEMOGLOBIN (BEAKER) (test code 29.6 pg 25.7-32.2 = 751) MEAN CORPUSCULAR HEMOGLOBIN CONC (BEAKER) (test 34.7 GM/DL 32.3-36.5 code = 752) RED CELL DISTRIBUTION WIDTH (BEAKER) (test code 15.4 % 11.6-14.4 = 412) PLATELET COUNT (BEAKER) (test code = 756) 217 K/CU MM 150-45 0 MEAN PLATELET VOLUME (BEAKER) (test code = 754) 10.2 fL 9.4-12.4 NUCLEATED RED BLOOD CELLS (BEAKER) (test code = 0 /100 WBC 0-0 413) RAD, CHEST, 1 VIEW, NON [id number] 04:21:00Reason for exam:->s/p ACBShould this be performed at the bedside?->YesFINAL REPORT RAD, CHEST, 1 VIEW, NON DEPT INDICATION: s/p ACB COMPARISON: Prior day's exam FINDINGS: Portable frontal view of the chest. IMPRESSION: Support Lines: Extubation.Removal of enteric tube. Right PICC, intraventricular assist device, and right IJ [place] catheterstable. Lungs and pleura: Increased pulmonary edema. Bilateral pleural effusions and basilar atelectasis are stable in appearance. No pneumothorax.Heart and mediastinum: Stable cardiomegaly. Additionalfindings: None. Signed: Luis Fernando Grey MDReport Verified Date/Time: 06/04/2019 04:21:15 BASIC METABOLIC [id number] 00:28:00 Test Item Value Reference Range Comments SODIUM (BEAKER) (test 130 meq/L 136-145 code = 381) POTASSIUM (BEAKER) (test 3.8 meq/L 3.5-5.1 code = 379) CHLORIDE (BEAKER) (test 95 meq/L 98-107 code = 382) CO2 (BEAKER) (test code = 23 meq/L 22-29 355) BLOOD UREA NITROGEN 78 mg/dL 7-21 (BEAKER) (test code = 354) CREATININE (BEAKER) (test 3.42 mg/dL 0.57-1.25 code = 358) GLUCOSE RANDOM (BEAKER) 144 mg/dL 70-105 (test code = 652) CALCIUM (BEAKER) (test 8.3 mg/dL 8.4-10.2 code = 697) EGFR (BEAKER) (test code 18 mL/min/1.73 sq m EST IMATED GFR IS NOT = 1092) ACCURATE CREA TININE CLEARANCE IN PRE DICTING GLOMERULAR FILTR ATION RATE. ESTIMATED GFR IS NOT APPLICABLE F OR DIALYSIS PATIENT S. Systems Testing Laboratory Technician ID - [id number] 00:22:00 Test Item Value Reference Range Comments PARTIAL THROMBOPLASTIN TIME (BEAKER) (test 108.8 seconds 22.5- 36.0 code = 760) [id number] 00:08:00 Test Item Value Reference Range Comments MAGNESIUM (BEAKER) (test code = 627) 2.2 mg/dL 1.6-2.6 Systems Testing Laboratory Technician ID - BSOXYGEN SATURATION, [id number] 18:47:00 Test Item Value Reference Range Comments O2 SATURATION (MEASURED) (BEAKER) (test code = 1455) 60.0 % BLOOD GAS, [id number] 18:28:00 Test Item Value Reference Range Comments PH ARTERIAL (BEAKER) (test code = 383) 7.49 7.35-7.45 PCO2 ARTERIAL (BEAKER) (test code = 384) 31 mmHg 35-45 PO2 ARTERIAL (BEAKER) (test code = 385) 95 mmHg 80-90 O2 SATURATION ARTERIAL (BEAKER) (test code = 386) 97.7 % 96.0-97.0 HCO3 ARTERIAL (BEAKER) (test code = 388) 23 mmol/L 21-29 BASE EXCESS ARTERIAL (BEAKER) (test code = 387) 0.2 mmol/L -2.0-3.0 PATIENT TEMPERATURE (BEAKER) (test code = 1818) 37.4 C FIO2 (BEAKER) (test code = 1819) 80.0 % BASIC METABOLIC [id number] 17:29:00 Test Item Value Reference Range Comments SODIUM (BEAKER) (test 130 meq/L 136-145 code = 381) POTASSIUM (BEAKER) (test 3.9 meq/L 3.5-5.1 code = 379) CHLORIDE (BEAKER) (test 97 meq/L 98-107 code = 382) CO2 (BEAKER) (test code = 23 meq/L 22-29 355) BLOOD UREA NITROGEN 73 mg/dL 7-21 (BEAKER) (test code = 354) CREATININE (BEAKER) (test 3.56 mg/dL 0.57-1.25 code = 358) GLUCOSE RANDOM (BEAKER) 143 mg/dL 70-105 (test code = 652) CALCIUM (BEAKER) (test 8.5 mg/dL 8.4-10.2 code = 697) EGFR (BEAKER) (test code 17 mL/min/1.73 sq m EST IMATED GFR IS NOT = 1092) ACCURATE CREA TININE CLEARANCE IN PRE DICTING GLOMERULAR FILTR ATION RATE. ESTIMATED GFR IS NOT APPLICABLE F OR DIALYSIS PATIENT S. Systems Testing Laboratory Technician ID - [id number] 17:27:00 Test Item Value Reference Range Comments MAGNESIUM (BEAKER) (test code = 627) 2.3 mg/dL 1.6-2.6 Systems Testing Laboratory Technician ID - [id number] 17:12:00 Test Item Value Reference Range Comments PARTIAL THROMBOPLASTIN TIME (BEAKER) (test code 93.2 seconds 22.5-36.0 = 760) BLOOD GAS, [id number] 12:33:00 Test Item Value Reference Range Comments PH ARTERIAL (BEAKER) (test code = 383) 7.49 7.35-7.45 PCO2 ARTERIAL (BEAKER) (test code = 384) 32 mmHg 35-45 PO2 ARTERIAL (BEAKER) (test code = 385) 89 mmHg 80-90 O2 SATURATION ARTERIAL (BEAKER) (test code = 386) 97.2 % 96.0-97.0 HCO3 ARTERIAL (BEAKER) (test code = 388) 24 mmol/L 21-29 BASE EXCESS ARTERIAL (BEAKER) (test code = 387) 0.8 mmol/L -2.0-3.0 PATIENT TEMPERATURE (BEAKER) (test code = 1818) 37.8 C FIO2 (BEAKER) (test code = 1819) 80.0 % OXYGEN SATURATION, [id number] 11:47:00 Test Item Value Reference Range Comments O2 SATURATION (MEASURED) (BEAKER) (test code = 1455) 47.0 % BLOOD GAS, [id number] 11:34:00 Test Item Value Reference Range Comments PH ARTERIAL (BEAKER) (test code = 383) 7.51 7.35-7.45 PCO2 ARTERIAL (BEAKER) (test code = 384) 32 mmHg 35-45 PO2 ARTERIAL (BEAKER) (test code = 385) 64 mmHg 80-90 O2 SATURATION ARTERIAL (BEAKER) (test code = 386) 93.7 % 96.0-97.0 HCO3 ARTERIAL (BEAKER) (test code = 388) 24 mmol/L 21-29 BASE EXCESS ARTERIAL (BEAKER) (test code = 387) 1.8 mmol/L -2.0-3.0 PATIENT TEMPERATURE (BEAKER) (test code = 1818) 37.9 C FIO2 (BEAKER) (test code = 1819) 44.0 % [id number] 09:56:00 Test Item Value Reference Range Comments PARTIAL THROMBOPLASTIN TIME (BEAKER) (test code 39.8 seconds 22.5-36.0 = 760) 6 hours after starting heparin infusion and as indicated per sliding scaleBASIC METABOLIC [id number] 08:39:00 Test Item Value Reference Range Comments SODIUM (BEAKER) (test 129 meq/L 136-145 code = 381) POTASSIUM (BEAKER) (test 4.4 meq/L 3.5-5.1 code = 379) CHLORIDE (BEAKER) (test 94 meq/L 98-107 code = 382) CO2 (BEAKER) (test code = 23 meq/L 22-29 355) BLOOD UREA NITROGEN 75 mg/dL 7-21 (BEAKER) (test code = 354) CREATININE (BEAKER) (test 3.65 mg/dL 0.57-1.25 code = 358) GLUCOSE RANDOM (BEAKER) 134 mg/dL 70-105 (test code = 652) CALCIUM (BEAKER) (test 8.4 mg/dL 8.4-10.2 code = 697) EGFR (BEAKER) (test code 17 mL/min/1.73 sq m EST IMATED GFR IS NOT = 1092) ACCURATE CREA TININE CLEARANCE IN PRE DICTING GLOMERULAR FILTR ATION RATE. ESTIMATED GFR IS NOT APPLICABLE F OR DIALYSIS PATIENT S. Systems Testing Laboratory Technician ID - [facility] [id number] 08:37:00 Test Item Value Reference Range Comments MAGNESIUM (BEAKER) (test code = 627) 2.3 mg/dL 1.6-2.6 Systems Testing Laboratory Technician ID - [facility] CRAD, CHEST, 1 VIEW, NON [id number] 07:39:00Reason for exam:->s/p ACBShould this be performed [...] MDReport Verified Date/Time: 06/03/2019 07:39:25 Reading Location: [facility] [id number] Ortho Consult Reading Room BASIC METABOLIC [id number] 06:11:00 Test Item Value Reference Range Comments SODIUM (BEAKER) (test 128 meq/L 136-145 code = 381) POTASSIUM (BEAKER) (test 4.4 meq/L 3.5-5.1 code = 379) CHLORIDE (BEAKER) (test 96 meq/L 98-107 code = 382) CO2 (BEAKER) (test code = 21 meq/L 22-29 355) BLOOD UREA NITROGEN 70 mg/dL 7-21 (BEAKER) (test code = 354) CREATININE (BEAKER) (test 3.48 mg/dL 0.57-1.25 code = 358) GLUCOSE RANDOM (BEAKER) 140 mg/dL 70-105 (test code = 652) CALCIUM (BEAKER) (test 8.8 mg/dL 8.4-10.2 code = 697) EGFR (BEAKER) (test code 17 mL/min/1.73 sq m EST IMATED GFR IS NOT = 1092) ACCURATE CREA TININE CLEARANCE IN PRE DICTING GLOMERULAR FILTR ATION RATE. ESTIMATED GFR IS NOT APPLICABLE F OR DIALYSIS PATIENT S. Systems Testing Laboratory Technician ID - MARISABEL [id number] 05:02:00 Test Item Value Reference Range Comments PHOSPHORUS (BEAKER) (test code = 604) 6.0 mg/dL 2.3-4.7 Systems Testing Laboratory Technician ID - MARISABEL [id number] 05:02:00 Test Item Value Reference Range Comments MAGNESIUM (BEAKER) (test code = 627) 2.5 mg/dL 1.6-2.6 Systems Testing Laboratory Technician ID - MARISABEL MLACTATE DEHYDROGENASE (LDH)2019-06-03 05:02:00 Test Item Value Reference Range Comments LACTATE DEHYDROGENASE (BEAKER) (test code = 635) 496 U/L 125-220 Systems Testing Laboratory Technician ID - MARISABEL MBLOOD GAS, [id number] 04:18:00 Test Item Value Reference Range Comments PH ARTERIAL (BEAKER) (test code = 383) 7.48 7.35-7.45 PCO2 ARTERIAL (BEAKER) (test code = 384) 32 mmHg 35-45 PO2 ARTERIAL (BEAKER) (test code = 385) 83 mmHg 80-90 O2 SATURATION ARTERIAL (BEAKER) (test code = 386) 96.6 % 96.0-97.0 HCO3 ARTERIAL (BEAKER) (test code = 388) 23 mmol/L 21-29 BASE EXCESS ARTERIAL (BEAKER) (test code = 387) 0.5 mmol/L -2.0-3.0 PATIENT TEMPERATURE (BEAKER) (test code = 1818) 37.9 C FIO2 (BEAKER) (test code = 1819) 40.0 % OXYGEN SATURATION, [id number] 04:17:00 Test Item Value Reference Range Comments O2 SATURATION (MEASURED) (BEAKER) (test code = 1455) 50.3 % CALCIUM, [id number] 04:16:00 Test Item Value Reference Range Comments CALCIUM IONIZED (BEAKER) (test code = 698) 1.13 mmol/L 1.12- 1.27 PH, BLOOD (BEAKER) (test code = 1810) 7.50 LACTIC ACID, [id number] 04:16:00 Test Item Value Reference Range Comments LACTATE BLOOD ARTERIAL (2) (BEAKER) (test code = 1.0 mmol/L 0.5-2.2 5734) Systems Testing Laboratory Technician ID - MARISABEL [id number] 04:14:00 Test Item Value Reference Range Comments PARTIAL THROMBOPLASTIN TIME (BEAKER) (test code 37.8 seconds 22.5-36.0 = 760) CBC (HEMOGRAM ONLY)2019-06-03 04:06:00 Test Item Value Reference Range Comments WHITE BLOOD CELL COUNT (BEAKER) (test code = 9.2 K/ L 3.5 -10.5 775) RED BLOOD CELL COUNT (BEAKER) (test code = 761) 3.14 M/ L 4.63-6.08 HEMOGLOBIN (BEAKER) (test code = 410) 9.2 GM/DL 13.7-17.5 HEMATOCRIT (BEAKER) (test code = 411) 26.9 % 40.1-51.0 MEAN CORPUSCULAR VOLUME (BEAKER) (test code = 85.7 fL 79 .0-92.2 753) MEAN CORPUSCULAR HEMOGLOBIN (BEAKER) (test code 29.3 pg 25.7-32.2 = 751) MEAN CORPUSCULAR HEMOGLOBIN CONC (BEAKER) (test 34.2 GM/DL 32.3-36.5 code = 752) RED CELL DISTRIBUTION WIDTH (BEAKER) (test code 15.3 % 11.6-14.4 = 412) PLATELET COUNT (BEAKER) (test code = 756) 239 K/CU MM 150-45 0 MEAN PLATELET VOLUME (BEAKER) (test code = 754) 10.2 fL 9.4-12.4 NUCLEATED RED BLOOD CELLS (BEAKER) (test code = 0 /100 WBC 0-0 413) LACTIC ACID, [id number] 02:53:00 Test Item Value Reference Range Comments LACTATE BLOOD ARTERIAL (2) (BEAKER) (test code = 1.0 mmol/L 0.5-2.2 8974) Systems Testing Laboratory Technician ID - GALAPBASIC METABOLIC [id number] 00:37:00 Test Item Value Reference Range Comments SODIUM (BEAKER) (test 128 meq/L 136-145 code = 381) POTASSIUM (BEAKER) (test 4.5 meq/L 3.5-5.1 code = 379) CHLORIDE (BEAKER) (test 96 meq/L 98-107 code = 382) CO2 (BEAKER) (test code = 21 meq/L 22-29 355) BLOOD UREA NITROGEN 70 mg/dL 7-21 (BEAKER) (test code = 354) CREATININE (BEAKER) (test 3.64 mg/dL 0.57-1.25 code = 358) GLUCOSE RANDOM (BEAKER) 138 mg/dL 70-105 (test code = 652) CALCIUM (BEAKER) (test 9.1 mg/dL 8.4-10.2 code = 697) EGFR (BEAKER) (test code 17 mL/min/1.73 sq m EST IMATED GFR IS NOT = 1092) ACCURATE CREA TININE CLEARANCE IN PRE DICTING GLOMERULAR FILTR ATION RATE. ESTIMATED GFR IS NOT APPLICABLE F OR DIALYSIS PATIENT S. [facility] Laboratory Technician ID - [id number] 00:30:00 Test Item Value Reference Range Comments MAGNESIUM (BEAKER) (test code = 627) 1.9 mg/dL 1.6-2.6 Systems Testing Laboratory Technician ID - GALAPBLOOD GAS, [id number] 00:25:00 Test Item Value Reference Range Comments PH ARTERIAL (BEAKER) (test code = 383) 7.47 7.35-7.45 PCO2 ARTERIAL (BEAKER) (test code = 384) 33 mmHg 35-45 PO2 ARTERIAL (BEAKER) (test code = 385) 89 mmHg 80-90 O2 SATURATION ARTERIAL (BEAKER) (test code = 386) 97.0 % 96.0-97.0 HCO3 ARTERIAL (BEAKER) (test code = 388) 23 mmol/L 21-29 BASE EXCESS ARTERIAL (BEAKER) (test code = 387) 0.3 mmol/L -2.0-3.0 PATIENT TEMPERATURE (BEAKER) (test code = 1818) 37.9 C FIO2 (BEAKER) (test code = 1819) 60.0 % OXYGEN SATURATION, [id number] 00:24:00 Test Item Value Reference Range Comments O2 SATURATION (MEASURED) (BEAKER) (test code = 1455) 48.0 % CBC W/PLT COUNT & AUTO [id number] 23:07:00 Test Item Value Reference Range Comments WHITE BLOOD CELL COUNT (BEAKER) (test code = 9.1 K/ L 3.5 -10.5 775) RED BLOOD CELL COUNT (BEAKER) (test code = 761) 3.06 M/ L 4.63-6.08 HEMOGLOBIN (BEAKER) (test code = 410) 8.9 GM/DL 13.7-17.5 HEMATOCRIT (BEAKER) (test code = 411) 26.3 % 40.1-51.0 MEAN CORPUSCULAR VOLUME (BEAKER) (test code = 85.9 fL 79 .0-92.2 753) MEAN CORPUSCULAR HEMOGLOBIN (BEAKER) (test code 29.1 pg 25.7-32.2 = 751) MEAN CORPUSCULAR HEMOGLOBIN CONC (BEAKER) (test 33.8 GM/DL 32.3-36.5 code = 752) RED CELL DISTRIBUTION WIDTH (BEAKER) (test code 15.2 % 11.6-14.4 = 412) PLATELET COUNT (BEAKER) (test code = 756) 236 K/CU MM 150-45 0 MEAN PLATELET VOLUME (BEAKER) (test code = 754) 10.1 fL 9.4-12.4 NUCLEATED RED BLOOD CELLS (BEAKER) (test code = 0 /100 WBC 0-0 413) NEUTROPHILS RELATIVE PERCENT (BEAKER) (test code 81 % = 429) LYMPHOCYTES RELATIVE PERCENT (BEAKER) (test code 5 % = 430) MONOCYTES RELATIVE PERCENT (BEAKER) (test code = 11 % 431) EOSINOPHILS RELATIVE PERCENT (BEAKER) (test code 2 % = 432) BASOPHILS RELATIVE PERCENT (BEAKER) (test code = 0 % 437) NEUTROPHILS ABSOLUTE COUNT (BEAKER) (test code = 7.40 K/ L 1.78-5.38 670) LYMPHOCYTES ABSOLUTE COUNT (BEAKER) (test code = 0.43 K/ L 1.32-3.57 414) MONOCYTES ABSOLUTE COUNT (BEAKER) (test code = 1.04 K/ L 0 .30-0.82 415) EOSINOPHILS ABSOLUTE COUNT (BEAKER) (test code = 0.20 K/ L 0.04-0.54 416) BASOPHILS ABSOLUTE COUNT (BEAKER) (test code = 0.02 K/ L 0 .01-0.08 417) IMMATURE GRANULOCYTES-RELATIVE PERCENT (BEAKER) 0 % 0-1 (test code = 2801) BLOOD GAS, [id number] 21:37:00 Test Item Value Reference Range Comments PH ARTERIAL (BEAKER) (test code = 383) 7.47 7.35-7.45 PCO2 ARTERIAL (BEAKER) (test code = 384) 32 mmHg 35-45 PO2 ARTERIAL (BEAKER) (test code = 385) 96 mmHg 80-90 O2 SATURATION ARTERIAL (BEAKER) (test code = 97.5 % 96. 0-97.0 386) HCO3 ARTERIAL (BEAKER) (test code = 388) 23 mmol/L 21-29 BASE EXCESS ARTERIAL (BEAKER) (test code = 387) -0.3 mmol/L -2.0-3.0 PATIENT TEMPERATURE (BEAKER) (test code = 1818) 37.8 C FIO2 (BEAKER) (test code = 1819) 60.0 % GLUCOSE-STAT [id number] 21:37:00 Test Item Value Reference Range Comments GLUCOSE RANDOM (BEAKER) (test code = 652) 141 mg/dL 70-110 SODIUM NA-STAT [id number] 21:37:00 Test Item Value Reference Range Comments SODIUM (BEAKER) (test code = 381) 126 meq/L 135-148 HGB/HCT (H&H) - STAT [id number] 21:37:00 Test Item Value Reference Range Comments HEMOGLOBIN (BEAKER) (test code = 410) 9.6 g/dL 13.0-16.8 HEMATOCRIT (BEAKER) (test code = 411) 28.0 % 40.0-50.0 POTASSIUM-STAT [id number] 21:33:00 Test Item Value Reference Range Comments POTASSIUM (BEAKER) (test code = 379) 4.2 meq/L 3.6-5.5 OXYGEN SATURATION, [id number] 21:32:00 Test Item Value Reference Range Comments O2 SATURATION (MEASURED) (BEAKER) (test code = 1455) 47.8 % THROMBOELASTOGRAPH (TEG)2019-06-02 18:42:00 Test Item Value Reference Range Comments TEG ACTIVATED CLOTTING TIME (BEAKER) (test code 4.1 minutes 4.0-7.0 = 1407) TEG FIBRINOGEN ACTIVITY (BEAKER) (test code = 78.4 degrees 61 .0-73.0 1408) TEG PLT. AGGREGATION (BEAKER) (test code = 78.2 MM 55.0- 65.0 1409) TEG FIBRINOLYSIS (BEAKER) (test code = 1410) 0.0 % 0.0 -5.0 TGH ACTIVATED CLOTTING TIME (BEAKER) (test code 3.8 minutes 4.0-7.0 = 1411) TGH FIBRINOGEN ACTIVITY (BEAKER) (test code = 78.0 degrees 61 .0-73.0 1412) TGH PLT. AGGREGATION (BEAKER) (test code = 76.2 MM 55.0- 65.0 1413) TGH FIBRINOLYSIS (BEAKER) (test code = 1414) 0.2 % 0.0 -5.0 [id number] 17:46:00 Test Item Value Reference Range Comments PARTIAL THROMBOPLASTIN TIME (BEAKER) (test code 41.9 seconds 22.5-36.0 = 760) BASIC METABOLIC [id number] 17:46:00 Test Item Value Reference Range Comments SODIUM (BEAKER) (test 130 meq/L 136-145 code = 381) POTASSIUM (BEAKER) (test 4.4 meq/L 3.5-5.1 code = 379) CHLORIDE (BEAKER) (test 95 meq/L 98-107 code = 382) CO2 (BEAKER) (test code = 25 meq/L 22-29 355) BLOOD UREA NITROGEN 68 mg/dL 7-21 (BEAKER) (test code = 354) CREATININE (BEAKER) (test 3.70 mg/dL 0.57-1.25 code = 358) GLUCOSE RANDOM (BEAKER) 158 mg/dL 70-105 (test code = 652) CALCIUM (BEAKER) (test 9.6 mg/dL 8.4-10.2 code = 697) EGFR (BEAKER) (test code 16 mL/min/1.73 sq m EST IMATED GFR IS NOT = 1092) ACCURATE CREA TININE CLEARANCE IN PRE DICTING GLOMERULAR FILTR ATION RATE. ESTIMATED GFR IS NOT APPLICABLE F OR DIALYSIS PATIENT S. Systems Testing Laboratory Technician AMY ESTES [id number] 17:25:00 Test Item Value Reference Range Comments MAGNESIUM (BEAKER) (test code = 627) 1.8 mg/dL 1.6-2.6 Systems Testing Laboratory Technician AMY - MEERA [id number] 16:37:00 Test Item Value Reference Range Comments ACTIVATED CLOTTING TIME 213 sec Referenc e Range: 74-137 (BEAKER) (test code = 441) [facility], Baseline/TESTED AT [address] [address] [id number] 16:37:00 Test Item Value Reference Range Comments ACTIVATED CLOTTING TIME 158 sec Referenc e Range: 74-137 (BEAKER) (test code = 441) [facility], Baseline/TESTED AT [address] [address] THROMBOELASTOGRAPH (TEG)2019-06-02 14:24:00 Test Item Value Reference Range Comments TEG ACTIVATED CLOTTING TIME (BEAKER) 61.4 minutes 4.0-7.0 NO CLOT DETECTED (test code = 1407) TEG FIBRINOGEN ACTIVITY (BEAKER) (test NO CLOT DETECTED code = 1408) TEG PLT. AGGREGATION (BEAKER) (test NO CLOT DETECTED code = 1409) TEG FIBRINOLYSIS (BEAKER) (test code = NO CLOT DETECTED 1410) TGH ACTIVATED CLOTTING TIME (BEAKER) 8.4 minutes 4.0-7.0 (test code = 1411) TGH FIBRINOGEN ACTIVITY (BEAKER) (test 75.2 degrees 61.0-73.0 code = 1412) TGH PLT. AGGREGATION (BEAKER) (test 72.4 MM 55.0-65.0 code = 1413) TGH FIBRINOLYSIS (BEAKER) (test code = 0.8 % 0.0-5.0 1414) TROPONIN [id number] 12:53:00 Test Item Value Reference Range Comments TROPONIN I (BEAKER) (test code = 397) 1.18 ng/mL 0.00-0.03 Troponin I (TnI) levels [...] failure, acidosis, acute neurological disease, and persistent tachyarrhythmia.Systems Testing Laboratory Technician ID - MELLY MUNROE, CHEST, 1 VIEW, NON [id number] 12:45:00Reason for exam:->s/p intubationShould this be performed at the bedside?->YesFINAL REPORT CLINICAL HISTORY: s/p intubation TECHNIQUE: 1 view of the chest. COMPARISON: 06/02/2019 IMPRESSION: There is a new ETT terminating approximately 9 cm above the scarlet. There is a new nasogastric tube below the diaphragm. There is a new [place] catheter with the tip in the pulmonary outflow tract There is a new Impella device in the left lower heart. The right PICC line is unchanged. Bilateral airspace opacities and right greater than left pleural effusions are again seen. The cardiomediastinal silhouette is magnified by technique with sternotomy wires and a pacemaker. Signed: Blanquita Posada MDReport Verified Date/Time: 06/02/2019 12:45:16 [facility] Rad[facility] Reading Room BASIC METABOLIC [id number] 12:41:00 Test Item Value Reference Range Comments SODIUM (BEAKER) (test 127 meq/L 136-145 code = 381) POTASSIUM (BEAKER) (test 4.1 meq/L 3.5-5.1 code = 379) CHLORIDE (BEAKER) (test 94 meq/L 98-107 code = 382) CO2 (BEAKER) (test code = 25 meq/L 22-29 355) BLOOD UREA NITROGEN 69 mg/dL 7-21 (BEAKER) (test code = 354) CREATININE (BEAKER) (test 3.75 mg/dL 0.57-1.25 code = 358) GLUCOSE RANDOM (BEAKER) 153 mg/dL 70-105 (test code = 652) CALCIUM (BEAKER) (test 9.4 mg/dL 8.4-10.2 code = 697) EGFR (BEAKER) (test code 16 mL/min/1.73 sq m EST IMATED GFR IS NOT = 1092) ACCURATE CREA TININE CLEARANCE IN PRE DICTING GLOMERULAR FILTR ATION RATE. ESTIMATED GFR IS NOT APPLICABLE F OR DIALYSIS PATIENT S. Systems Testing Laboratory Technician ID - MELLY FPT/[id number] 12:41:00 Test Item Value Reference Range Comments PROTIME (BEAKER) (test code = 759) 18.7 seconds 11.9-14.2 INR (BEAKER) (test code = 370) 1.6 <=5.9 PARTIAL THROMBOPLASTIN TIME (BEAKER) (test code > seconds 22.5-36.0 = 760) Effective 10/12/2018: PT Reference Range ChangeNew: 11.9-14.2 Previous: 11.7- 14.7RECOMMENDED COUMADIN/WARFARIN INR THERAPY RANGESSTANDARD DOSE: 2.0-3.0 Includes: PROPHYLAXIS for venous thrombosis, systemic embolization; TREATMENT for venous thrombosis and/or pulmonary embolus.HIGH RISK: Target INR is2.5-3.5 for patients wiht mechanical heart valves.[id number] 12:38:00 Test Item Value Reference Range Comments PHOSPHORUS (BEAKER) (test code = 604) 6.1 mg/dL 2.3-4.7 Systems Testing Laboratory Technician ID Sharmila PICKARD [id number] 12:38:00 Test Item Value Reference Range Comments MAGNESIUM (BEAKER) (test code = 627) 2.0 mg/dL 1.6-2.6 Systems Testing Laboratory Technician ID Sharmila PICKARD FHEPATIC FUNCTION [id number] 12:38:00 Test Item Value Reference Range Comments TOTAL PROTEIN (BEAKER) (test code = 770) 5.7 gm/dL 6.0-8.3 ALBUMIN (BEAKER) (test code = 1145) 2.8 g/dL 3.5-5.0 BILIRUBIN TOTAL (BEAKER) (test code = 377) 1.3 mg/dL 0.2-1 .2 BILIRUBIN DIRECT (BEAKER) (test code = 706) 0.9 mg/dL 0.1- 0.5 ALKALINE PHOSPHATASE (BEAKER) (test code = 346) 117 U/L 40-150 AST (SGOT) (BEAKER) (test code = 353) 31 U/L 5-34 ALT (SGPT) (BEAKER) (test code = 347) 58 U/L 6-55 Systems Testing Laboratory Technician ID Sharmila PICKARD FCBC (HEMOGRAM ONLY)2019-06-02 12:22:00 Test Item Value Reference Range Comments WHITE BLOOD CELL COUNT (BEAKER) (test code = 9.1 K/ L 3.5 -10.5 775) RED BLOOD CELL COUNT (BEAKER) (test code = 761) 3.03 M/ L 4.63-6.08 HEMOGLOBIN (BEAKER) (test code = 410) 9.0 GM/DL 13.7-17.5 HEMATOCRIT (BEAKER) (test code = 411) 26.6 % 40.1-51.0 MEAN CORPUSCULAR VOLUME (BEAKER) (test code = 87.8 fL 79 .0-92.2 753) MEAN CORPUSCULAR HEMOGLOBIN (BEAKER) (test code 29.7 pg 25.7-32.2 = 751) MEAN CORPUSCULAR HEMOGLOBIN CONC (BEAKER) (test 33.8 GM/DL 32.3-36.5 code = 752) RED CELL DISTRIBUTION WIDTH (BEAKER) (test code 15.5 % 11.6-14.4 = 412) PLATELET COUNT (BEAKER) (test code = 756) 233 K/CU MM 150-45 0 MEAN PLATELET VOLUME (BEAKER) (test code = 754) 10.6 fL 9.4-12.4 NUCLEATED RED BLOOD CELLS (BEAKER) (test code = 0 /100 WBC 0-0 413) LACTIC ACID, [id number] 12:21:00 Test Item Value Reference Range Comments LACTATE BLOOD ARTERIAL (2) (BEAKER) (test code = 1.0 mmol/L 0.5-2.2 6194) Systems Testing Laboratory Technician ID - [id number] 12:19:00 Test Item Value Reference Range Comments FIBRINOGEN LEVEL (BEAKER) (test code = 658) 485 mg/dl 225- 434 OXYGEN SATURATION, [id number] 12:11:00 Test Item Value Reference Range Comments O2 SATURATION (MEASURED) (BEAKER) (test code = 1455) 65.3 % CALCIUM, [id number] 12:09:00 Test Item Value Reference Range Comments CALCIUM IONIZED (BEAKER) (test code = 698) 1.26 mmol/L 1.12- 1.27 PH, BLOOD (BEAKER) (test code = 1810) 7.42 BLOOD GAS, [id number] 12:07:00 Test Item Value Reference Range Comments PH ARTERIAL (BEAKER) (test code = 383) 7.42 7.35-7.45 PCO2 ARTERIAL (BEAKER) (test code = 384) 38 mmHg 35-45 PO2 ARTERIAL (BEAKER) (test code = 385) 132 mmHg 80-90 O2 SATURATION ARTERIAL (BEAKER) (test code = 98.7 % 96. 0-97.0 386) HCO3 ARTERIAL (BEAKER) (test code = 388) 24 mmol/L 21-29 BASE EXCESS ARTERIAL (BEAKER) (test code = 387) -0.5 mmol/L -2.0-3.0 PATIENT TEMPERATURE (BEAKER) (test code = 1818) 37.2 C FIO2 (BEAKER) (test code = 1819) 100.0 % SODIUM NA-STAT [id number] 12:07:00 Test Item Value Reference Range Comments SODIUM (BEAKER) (test code = 381) 125 meq/L 135-148 GLUCOSE-STAT [id number] 12:07:00 Test Item Value Reference Range Comments GLUCOSE RANDOM (BEAKER) (test code = 652) 151 mg/dL 70-110 HGB/HCT (H&H) - STAT [id number] 12:07:00 Test Item Value Reference Range Comments HEMOGLOBIN (BEAKER) (test code = 410) 9.9 g/dL 13.0-16.8 HEMATOCRIT (BEAKER) (test code = 411) 29.0 % 40.0-50.0 POTASSIUM-STAT [id number] 12:04:00 Test Item Value Reference Range Comments POTASSIUM (BEAKER) (test code = 379) 4.0 meq/L 3.6-5.5 OXYGEN SATURATION, [id number] 10:01:00 Test Item Value Reference Range Comments O2 SATURATION (MEASURED) (BEAKER) (test code = 1455) 61.4 % HGB/HCT (H&H) - STAT [id number] 09:57:00 Test Item Value Reference Range Comments HEMOGLOBIN (BEAKER) (test code = 410) 8.6 g/dL 13.0-16.8 HEMATOCRIT (BEAKER) (test code = 411) 25.0 % 40.0-50.0 CALCIUM, [id number] 09:56:00 Test Item Value Reference Range Comments CALCIUM IONIZED (BEAKER) (test code = 698) 1.08 mmol/L 1.12- 1.27 PH, BLOOD (BEAKER) (test code = 1810) 7.37 BLOOD GAS, [id number] 09:56:00 Test Item Value Reference Range Comments PH ARTERIAL (BEAKER) (test code = 383) 7.39 7.35-7.45 PCO2 ARTERIAL (BEAKER) (test code = 384) 42 mmHg 35-45 PO2 ARTERIAL (BEAKER) (test code = 385) 83 mmHg 80-90 O2 SATURATION ARTERIAL (BEAKER) (test code = 96.6 % 96. 0-97.0 386) HCO3 ARTERIAL (BEAKER) (test code = 388) 25 mmol/L 21-29 BASE EXCESS ARTERIAL (BEAKER) (test code = 387) -0.3 mmol/L -2.0-3.0 PATIENT TEMPERATURE (BEAKER) (test code = 1818) 35.7 C FIO2 (BEAKER) (test code = 1819) 100.0 % POTASSIUM-STAT [id number] 09:56:00 Test Item Value Reference Range Comments POTASSIUM (BEAKER) (test code = 379) 3.9 meq/L 3.6-5.5 SODIUM NA-STAT [id number] 09:56:00 Test Item Value Reference Range Comments SODIUM (BEAKER) (test code = 381) 125 meq/L 135-148 GLUCOSE-STAT [id number] 09:56:00 Test Item Value Reference Range Comments GLUCOSE RANDOM (BEAKER) (test code = 652) 142 mg/dL 70-110 RAD, CHEST, 1 VIEW, NON [id number] 08:43:00Reason for exam:->s/p ACBShould this be performed [...] Randhawa Verified Date/Time: 06/02/2019 08:43:27 Reading Location: [facility] Radiology Reading Room [id number] 05:54:00 Test Item Value Reference Range Comments PROTIME (BEAKER) (test code = 759) 16.4 seconds 11.9-14.2 INR (BEAKER) (test code = 370) 1.4 <=5.9 PARTIAL THROMBOPLASTIN TIME (BEAKER) (test code 37.6 seconds 22.5-36.0 = 760) Effective 10/12/2018: PT Reference Range ChangeNew: 11.9-14.2 Previous: 11.7- 14.7RECOMMENDED COUMADIN/WARFARIN INR THERAPY RANGESSTANDARD DOSE: 2.0-3.0 Includes: PROPHYLAXIS for venous thrombosis, systemic embolization; TREATMENT for venous thrombosis and/or pulmonary embolus.HIGH RISK: Target INR is2.5-3.5 for patients wiht mechanical heart valves.PROTHROMBIN TIME/[id number] 05:53:00 Test Item Value Reference Range Comments PROTIME (BEAKER) (test code = 759) 16.4 seconds 11.9-14.2 INR (BEAKER) (test code = 370) 1.4 <=5.9 Effective 10/12/2018: PT Reference Range ChangeNew: 11.9-14.2 Previous: 11.7- 14.7RECOMMENDED COUMADIN/WARFARIN INR THERAPY RANGESSTANDARD DOSE: 2.0-3.0 Includes: PROPHYLAXIS for venous thrombosis, systemic embolization; TREATMENT for venous thrombosis and/or pulmonary embolus.HIGH RISK: Target INR is2.5-3.5 for patients wiht mechanical heart valves.BASIC METABOLIC [id number] 05:37:00 Test Item Value Reference Range Comments SODIUM (BEAKER) (test 127 meq/L 136-145 code = 381) POTASSIUM (BEAKER) (test 3.9 meq/L 3.5-5.1 code = 379) CHLORIDE (BEAKER) (test 93 meq/L 98-107 code = 382) CO2 (BEAKER) (test code = 24 meq/L 22-29 355) BLOOD UREA NITROGEN 64 mg/dL 7-21 (BEAKER) (test code = 354) CREATININE (BEAKER) (test 3.65 mg/dL 0.57-1.25 code = 358) GLUCOSE RANDOM (BEAKER) 126 mg/dL 70-105 (test code = 652) CALCIUM (BEAKER) (test 7.9 mg/dL 8.4-10.2 code = 697) EGFR (BEAKER) (test code 17 mL/min/1.73 sq m EST IMATED GFR IS NOT = 1092) ACCURATE CREA TININE CLEARANCE IN PRE DICTING GLOMERULAR FILTR ATION RATE. ESTIMATED GFR IS NOT APPLICABLE F OR DIALYSIS PATIENT S. Systems Testing Laboratory Technician ID - [id number] 05:26:00 Test Item Value Reference Range Comments PHOSPHORUS (BEAKER) (test code = 604) 4.6 mg/dL 2.3-4.7 Systems Testing Laboratory Technician ID - [id number] 05:26:00 Test Item Value Reference Range Comments MAGNESIUM (BEAKER) (test code = 627) 1.9 mg/dL 1.6-2.6 Systems Testing Laboratory Technician ID - DBOXYGEN SATURATION, [id number] 05:25:00 Test Item Value Reference Range Comments O2 SATURATION (MEASURED) (BEAKER) (test code = 1455) 54.6 % LACTIC ACID, [id number] 05:19:00 Test Item Value Reference Range Comments LACTATE BLOOD ARTERIAL (2) (BEAKER) (test code = 0.8 mmol/L 0.5-2.2 2874) Systems Testing Laboratory Technician ID - FREDERICK WBLOOD GAS, [id number] 05:11:00 Test Item Value Reference Range Comments PH ARTERIAL (BEAKER) (test code = 383) 7.51 7.35-7.45 PCO2 ARTERIAL (BEAKER) (test code = 384) 32 mmHg 35-45 PO2 ARTERIAL (BEAKER) (test code = 385) 98 mmHg 80-90 O2 SATURATION ARTERIAL (BEAKER) (test code = 386) 98.0 % 96.0-97.0 HCO3 ARTERIAL (BEAKER) (test code = 388) 25 mmol/L 21-29 BASE EXCESS ARTERIAL (BEAKER) (test code = 387) 1.7 mmol/L -2.0-3.0 PATIENT TEMPERATURE (BEAKER) (test code = 1818) 37.0 C FIO2 (BEAKER) (test code = 1819) 100.0 % CBC (HEMOGRAM ONLY)2019-06-02 05:07:00 Test Item Value Reference Range Comments WHITE BLOOD CELL COUNT (BEAKER) (test code = 7.0 K/ L 3.5 -10.5 775) RED BLOOD CELL COUNT (BEAKER) (test code = 761) 2.71 M/ L 4.63-6.08 HEMOGLOBIN (BEAKER) (test code = 410) 7.8 GM/DL 13.7-17.5 HEMATOCRIT (BEAKER) (test code = 411) 23.5 % 40.1-51.0 MEAN CORPUSCULAR VOLUME (BEAKER) (test code = 86.7 fL 79 .0-92.2 753) MEAN CORPUSCULAR HEMOGLOBIN (BEAKER) (test code 28.8 pg 25.7-32.2 = 751) MEAN CORPUSCULAR HEMOGLOBIN CONC (BEAKER) (test 33.2 GM/DL 32.3-36.5 code = 752) RED CELL DISTRIBUTION WIDTH (BEAKER) (test code 15.6 % 11.6-14.4 = 412) PLATELET COUNT (BEAKER) (test code = 756) 235 K/CU MM 150-45 0 MEAN PLATELET VOLUME (BEAKER) (test code = 754) 10.5 fL 9.4-12.4 NUCLEATED RED BLOOD CELLS (BEAKER) (test code = 0 /100 WBC 0-0 413) HEMOGLOBIN AND [id number] 01:01:00 Test Item Value Reference Range Comments HEMOGLOBIN (BEAKER) (test code = 410) 7.6 GM/DL 13.7-17.5 HEMATOCRIT (BEAKER) (test code = 411) 22.7 % 40.1-51.0 Systems Testing Laboratory Technician ID - 6000BASIC METABOLIC [id number] 00:55:00 Test Item Value Reference Range Comments SODIUM (BEAKER) (test 125 meq/L 136-145 code = 381) POTASSIUM (BEAKER) (test 4.1 meq/L 3.5-5.1 code = 379) CHLORIDE (BEAKER) (test 93 meq/L 98-107 code = 382) CO2 (BEAKER) (test code = 23 meq/L 22-29 355) BLOOD UREA NITROGEN 63 mg/dL 7-21 (BEAKER) (test code = 354) CREATININE (BEAKER) (test 3.56 mg/dL 0.57-1.25 code = 358) GLUCOSE RANDOM (BEAKER) 137 mg/dL 70-105 (test code = 652) CALCIUM (BEAKER) (test 7.7 mg/dL 8.4-10.2 code = 697) EGFR (BEAKER) (test code 17 mL/min/1.73 sq m EST IMATED GFR IS NOT = 1092) ACCURATE CREA TININE CLEARANCE IN PRE DICTING GLOMERULAR FILTR ATION RATE. ESTIMATED GFR IS NOT APPLICABLE F OR DIALYSIS PATIENT S. Systems Testing Laboratory Technician ID - DBOXYGEN SATURATION, [id number] 00:54:00 Test Item Value Reference Range Comments O2 SATURATION (MEASURED) (BEAKER) (test code = 1455) 45.4 % BLOOD GAS, [id number] 00:54:00 Test Item Value Reference Range Comments PH ARTERIAL (BEAKER) (test code = 383) 7.49 7.35-7.45 PCO2 ARTERIAL (BEAKER) (test code = 384) 30 mmHg 35-45 PO2 ARTERIAL (BEAKER) (test code = 385) 77 mmHg 80-90 O2 SATURATION ARTERIAL (BEAKER) (test code = 96.5 % 96. 0-97.0 386) HCO3 ARTERIAL (BEAKER) (test code = 388) 23 mmol/L 21-29 BASE EXCESS ARTERIAL (BEAKER) (test code = 387) -0.2 mmol/L -2.0-3.0 PATIENT TEMPERATURE (BEAKER) (test code = 1818) 37.0 C FIO2 (BEAKER) (test code = 1819) 100.0 % [id number] 00:52:00 Test Item Value Reference Range Comments MAGNESIUM (BEAKER) (test code = 627) 1.9 mg/dL 1.6-2.6 Systems Testing Laboratory Technician ID - DBBASIC METABOLIC [id number] 17:53:00 Test Item Value Reference Range Comments SODIUM (BEAKER) (test 125 meq/L 136-145 code = 381) POTASSIUM (BEAKER) (test 4.5 meq/L 3.5-5.1 code = 379) CHLORIDE (BEAKER) (test 94 meq/L 98-107 code = 382) CO2 (BEAKER) (test code = 23 meq/L 22-29 355) BLOOD UREA NITROGEN 63 mg/dL 7-21 (BEAKER) (test code = 354) CREATININE (BEAKER) (test 3.53 mg/dL 0.57-1.25 code = 358) GLUCOSE RANDOM (BEAKER) 119 mg/dL 70-105 (test code = 652) CALCIUM (BEAKER) (test 8.0 mg/dL 8.4-10.2 code = 697) EGFR (BEAKER) (test code 17 mL/min/1.73 sq m EST IMATED GFR IS NOT = 1092) ACCURATE CREA TININE CLEARANCE IN PRE DICTING GLOMERULAR FILTR ATION RATE. ESTIMATED GFR IS NOT APPLICABLE F OR DIALYSIS PATIENT S. Systems Testing Laboratory Technician ID - BSOXYGEN SATURATION, [id number] 17:31:00 Test Item Value Reference Range Comments O2 SATURATION (MEASURED) (BEAKER) (test code = 1455) 45.2 % [id number] 14:57:00 Test Item Value Reference Range Comments POTASSIUM (BEAKER) (test code = 4.6 meq/L 3.5-5.1 Specimen slightly hemolyzed 379) Systems Testing Laboratory Technician ID - BSPRN - repeat potassium levels every 1 hour until glucose level is less than 450 mg/[id number] 14:53:00 Test Item Value Reference Range Comments MAGNESIUM (BEAKER) (test code = 2.0 mg/dL 1.6-2.6 Specimen slightly hemolyzed 627) Systems Testing Laboratory Technician ID - BSPRN - repeat potassium levels every 1 hour until glucose level is less than 450 mg/dLLACTIC ACID, [id number] 06:47:00 Test Item Value Reference Range Comments LACTATE BLOOD ARTERIAL (2) (BEAKER) (test code = 0.8 mmol/L 0.5-2.2 2874) Systems Testing Laboratory Technician ID - FREDERICK WBASIC METABOLIC [id number] 06:02:00 Test Item Value Reference Range Comments SODIUM (BEAKER) (test 123 meq/L 136-145 code = 381) POTASSIUM (BEAKER) (test 4.1 meq/L 3.5-5.1 code = 379) CHLORIDE (BEAKER) (test 93 meq/L 98-107 code = 382) CO2 (BEAKER) (test code = 21 meq/L 22-29 355) BLOOD UREA NITROGEN 61 mg/dL 7-21 (BEAKER) (test code = 354) CREATININE (BEAKER) (test 3.46 mg/dL 0.57-1.25 code = 358) GLUCOSE RANDOM (BEAKER) 145 mg/dL 70-105 (test code = 652) CALCIUM (BEAKER) (test 7.4 mg/dL 8.4-10.2 code = 697) EGFR (BEAKER) (test code 18 mL/min/1.73 sq m EST IMATED GFR IS NOT = 1092) ACCURATE CREA TININE CLEARANCE IN PRE DICTING GLOMERULAR FILTR ATION RATE. ESTIMATED GFR IS NOT APPLICABLE F OR DIALYSIS PATIENT S. Systems Testing Laboratory Technician ID - RUDI [id number] 05:56:00 Test Item Value Reference Range Comments PHOSPHORUS (BEAKER) (test code = 604) 3.4 mg/dL 2.3-4.7 Systems Testing Laboratory Technician ID - PITOO [id number] 05:56:00 Test Item Value Reference Range Comments MAGNESIUM (BEAKER) (test code = 627) 2.1 mg/dL 1.6-2.6 Systems Testing Laboratory Technician ID - RUDI LRAD, CHEST, 1 VIEW, NON [id number] 05:25:00Reason for exam:->s/p ACBShould this be performed [...] Comments WHITE BLOOD CELL COUNT (BEAKER) (test code = 8.4 K/ L 3.5 -10.5 775) RED BLOOD CELL COUNT (BEAKER) (test code = 761) 2.66 M/ L 4.63-6.08 HEMOGLOBIN (BEAKER) (test code = 410) 7.9 GM/DL 13.7-17.5 HEMATOCRIT (BEAKER) (test code = 411) 23.1 % 40.1-51.0 MEAN CORPUSCULAR VOLUME (BEAKER) (test code = 86.8 fL 79 .0-92.2 753) MEAN CORPUSCULAR HEMOGLOBIN (BEAKER) (test code 29.7 pg 25.7-32.2 = 751) MEAN CORPUSCULAR HEMOGLOBIN CONC (BEAKER) (test 34.2 GM/DL 32.3-36.5 code = 752) RED CELL DISTRIBUTION WIDTH (BEAKER) (test code 15.6 % 11.6-14.4 = 412) PLATELET COUNT (BEAKER) (test code = 756) 178 K/CU MM 150-45 0 MEAN PLATELET VOLUME (BEAKER) (test code = 754) 11.0 fL 9.4-12.4 NUCLEATED RED BLOOD CELLS (BEAKER) (test code = 0 /100 WBC 0-0 413) OXYGEN SATURATION, [id number] 04:54:00 Test Item Value Reference Range Comments O2 SATURATION (MEASURED) (BEAKER) (test code = 1455) 60.2 % BLOOD GAS, [id number] 04:29:00 Test Item Value Reference Range Comments PH ARTERIAL (BEAKER) (test code = 383) 7.51 7.35-7.45 PCO2 ARTERIAL (BEAKER) (test code = 384) 29 mmHg 35-45 PO2 ARTERIAL (BEAKER) (test code = 385) 109 mmHg 80-90 O2 SATURATION ARTERIAL (BEAKER) (test code = 386) 98.4 % 96.0-97.0 HCO3 ARTERIAL (BEAKER) (test code = 388) 23 mmol/L 21-29 BASE EXCESS ARTERIAL (BEAKER) (test code = 387) 0.3 mmol/L -2.0-3.0 PATIENT TEMPERATURE (BEAKER) (test code = 1818) 37.0 C FIO2 (BEAKER) (test code = 1819) 100.0 % BASIC METABOLIC [id number] 20:37:00 Test Item Value Reference Range Comments SODIUM (BEAKER) (test 124 meq/L 136-145 code = 381) POTASSIUM (BEAKER) (test 4.5 meq/L 3.5-5.1 Specime n slightly code = 379) hemolyzed CHLORIDE (BEAKER) (test 93 meq/L 98-107 code = 382) CO2 (BEAKER) (test code = 22 meq/L 22-29 355) BLOOD UREA NITROGEN 61 mg/dL 7-21 (BEAKER) (test code = 354) CREATININE (BEAKER) (test 3.43 mg/dL 0.57-1.25 Specim en slightly code = 358) hemolyzed GLUCOSE RANDOM (BEAKER) 118 mg/dL 70-105 (test code = 652) CALCIUM (BEAKER) (test 7.4 mg/dL 8.4-10.2 code = 697) EGFR (BEAKER) (test code 18 mL/min/1.73 sq m EST IMATED GFR IS NOT = 1092) ACCURATE CREA TININE CLEARANCE IN PRE DICTING GLOMERULAR FILTR ATION RATE. ESTIMATED GFR IS NOT APPLICABLE F OR DIALYSIS PATIENT S. Systems Testing Laboratory Technician ID - MARY BLACTIC ACID, [id number] 20:33:00 Test Item Value Reference Range Comments LACTATE BLOOD ARTERIAL (2) (BEAKER) (test code = 0.8 mmol/L 0.5-2.2 2874) Systems Testing Laboratory Technician ID - MARY BOXYGEN SATURATION, [id number] 19:55:00 Test Item Value Reference Range Comments O2 SATURATION (MEASURED) (BEAKER) (test code = 1455) 53.4 % BLOOD GAS, [id number] 19:54:00 Test Item Value Reference Range Comments PH ARTERIAL (BEAKER) (test code = 383) 7.54 7.35-7.45 PCO2 ARTERIAL (BEAKER) (test code = 384) 28 mmHg 35-45 PO2 ARTERIAL (BEAKER) (test code = 385) 84 mmHg 80-90 O2 SATURATION ARTERIAL (BEAKER) (test code = 386) 97.4 % 96.0-97.0 HCO3 ARTERIAL (BEAKER) (test code = 388) 24 mmol/L 21-29 BASE EXCESS ARTERIAL (BEAKER) (test code = 387) 1.5 mmol/L -2.0-3.0 PATIENT TEMPERATURE (BEAKER) (test code = 1818) 37.0 C FIO2 (BEAKER) (test code = 1819) 100.0 % RAD, CHEST, 1 VIEW, NON [id number] 19:10:00Reason for exam:->piccShould this be performed at the bedside?->YesFINAL REPORT Chest, one view. HISTORY: picc COMPARISON: Radiograph from 05/31/2019 IMPRESSION: Interval insertion of a right PICC with [...] abnormality. Signed: Colette Veloz MDReport Verified Date/Time: 05/31/2019 19:10:18 Reading Location: [address] Consult Reading Room RAD, CHEST, 1 VIEW, NON [id number] 08:55:00 Reason for exam:->s/p ACBShould this be performed at the bedside?->Yes FINAL REPORT CLINICAL HISTORY: s/p ACB TECHNIQUE: 1 view of the chest. COMPARISON: 05/30/2019 IMPRESSION: There is a new left chest wall dual-lead pacemaker without pneumothorax. The right jugular sheath is unchanged. Bilateral airspace opacities and right greater than left pleural effusions are grossly unchanged. Cardiomegaly is again seen poststernotomy. Signed: Blanquita Posada MDReport Verified Date/Time: 05/31/2019 08:55:28 Reading Location: [facility] Radiology Reading Room [id number] 06:13:00 Test Item Value Reference Range Comments PHOSPHORUS (BEAKER) (test code = 604) 3.2 mg/dL 2.3-4.7 Systems Testing Laboratory Technician ID - [id number] 06:13:00 Test Item Value Reference Range Comments MAGNESIUM (BEAKER) (test code = 627) 2.1 mg/dL 1.6-2.6 Systems Testing Laboratory Technician ID - LABASIC METABOLIC [id number] 06:13:00 Test Item Value Reference Range Comments SODIUM (BEAKER) (test 127 meq/L 136-145 code = 381) POTASSIUM (BEAKER) (test 4.2 meq/L 3.5-5.1 code = 379) CHLORIDE (BEAKER) (test 95 meq/L 98-107 code = 382) CO2 (BEAKER) (test code = 25 meq/L 22-29 355) BLOOD UREA NITROGEN 55 mg/dL 7-21 (BEAKER) (test code = 354) CREATININE (BEAKER) (test 3.37 mg/dL 0.57-1.25 code = 358) GLUCOSE RANDOM (BEAKER) 135 mg/dL 70-105 (test code = 652) CALCIUM (BEAKER) (test 7.6 mg/dL 8.4-10.2 code = 697) EGFR (BEAKER) (test code 18 mL/min/1.73 sq m EST IMATED GFR IS NOT = 1092) ACCURATE CREA TININE CLEARANCE IN PRE DICTING GLOMERULAR FILTR ATION RATE. ESTIMATED GFR IS NOT APPLICABLE F OR DIALYSIS PATIENT S. Systems Testing Laboratory Technician ID - LACBC (HEMOGRAM ONLY)2019-05-31 05:23:00 Test Item Value Reference Range Comments WHITE BLOOD CELL COUNT (BEAKER) (test code = 8.0 K/ L 3.5 -10.5 775) RED BLOOD CELL COUNT (BEAKER) (test code = 761) 2.95 M/ L 4.63-6.08 HEMOGLOBIN (BEAKER) (test code = 410) 8.5 GM/DL 13.7-17.5 HEMATOCRIT (BEAKER) (test code = 411) 26.4 % 40.1-51.0 MEAN CORPUSCULAR VOLUME (BEAKER) (test code = 89.5 fL 79 .0-92.2 753) MEAN CORPUSCULAR HEMOGLOBIN (BEAKER) (test code 28.8 pg 25.7-32.2 = 751) MEAN CORPUSCULAR HEMOGLOBIN CONC (BEAKER) (test 32.2 GM/DL 32.3-36.5 code = 752) RED CELL DISTRIBUTION WIDTH (BEAKER) (test code 15.8 % 11.6-14.4 = 412) PLATELET COUNT (BEAKER) (test code = 756) 165 K/CU MM 150-45 0 MEAN PLATELET VOLUME (BEAKER) (test code = 754) 10.7 fL 9.4-12.4 NUCLEATED RED BLOOD CELLS (BEAKER) (test code = 0 /100 WBC 0-0 413) RAD, CHEST, 1 VIEW, NON [id number] 08:02:00Reason for exam:->s/p ACBShould this be performed at the bedside?->YesFINAL REPORT CLINICAL HISTORY: s/p ACB TECHNIQUE: 1 view of the chest. COMPARISON: 05/29/2019 IMPRESSION: The [place] catheter has been removed. The right jugular sheath remains. There are diffusely increased bilateral airspace opacities and pleural effusions. Cardiomegaly is again seen unchanged post sternotomy. Signed: Blanquita Posada MDReport Verified Date/Time: 05/30/2019 08:02:43 Reading [facility] Reading Room B-TYPE NATRIURETIC FACTOR (BNP) 2019-05-30 06:24:00 Test Item Value Reference Range Comments B-TYPE NATRIURETIC PEPTIDE (BEAKER) (test code = 2342 pg/mL 0-100 700) Systems Testing Laboratory Technician ID - LABASIC METABOLIC [id number] 05:48:00 Test Item Value Reference Range Comments SODIUM (BEAKER) (test 130 meq/L 136-145 code = 381) POTASSIUM (BEAKER) (test 3.8 meq/L 3.5-5.1 code = 379) CHLORIDE (BEAKER) (test 97 meq/L 98-107 code = 382) CO2 (BEAKER) (test code = 25 meq/L 22-29 355) BLOOD UREA NITROGEN 51 mg/dL 7-21 (BEAKER) (test code = 354) CREATININE (BEAKER) (test 2.95 mg/dL 0.57-1.25 code = 358) GLUCOSE RANDOM (BEAKER) 91 mg/dL 70-105 (test code = 652) CALCIUM (BEAKER) (test 7.6 mg/dL 8.4-10.2 code = 697) EGFR (BEAKER) (test code 21 mL/min/1.73 sq m EST IMATED GFR IS NOT = 1092) ACCURATE CREA TININE CLEARANCE IN PRE DICTING GLOMERULAR FILTR ATION RATE. ESTIMATED GFR IS NOT APPLICABLE F OR DIALYSIS PATIENT S. Systems Testing Laboratory Technician ID - MARISABEL MURIC [id number] 05:43:00 Test Item Value Reference Range Comments URIC ACID (BEAKER) (test code = 773) 10.7 mg/dL 2.6-7.2 Systems Testing Laboratory Technician ID - MARISABEL [id number] 05:43:00 Test Item Value Reference Range Comments MAGNESIUM (BEAKER) (test code = 627) 2.1 mg/dL 1.6-2.6 Systems Testing Laboratory Technician ID - MARISABEL [id number] 05:43:00 Test Item Value Reference Range Comments PHOSPHORUS (BEAKER) (test code = 604) 2.8 mg/dL 2.3-4.7 Systems Testing Laboratory Technician ID - MARISABEL MCBC W/PLT COUNT & AUTO [id number] 05:30:00 Test Item Value Reference Range Comments WHITE BLOOD CELL COUNT (BEAKER) (test code = 6.8 K/ L 3.5 -10.5 775) RED BLOOD CELL COUNT (BEAKER) (test code = 761) 3.16 M/ L 4.63-6.08 HEMOGLOBIN (BEAKER) (test code = 410) 9.1 GM/DL 13.7-17.5 HEMATOCRIT (BEAKER) (test code = 411) 27.8 % 40.1-51.0 MEAN CORPUSCULAR VOLUME (BEAKER) (test code = 88.0 fL 79 .0-92.2 753) MEAN CORPUSCULAR HEMOGLOBIN (BEAKER) (test code 28.8 pg 25.7-32.2 = 751) MEAN CORPUSCULAR HEMOGLOBIN CONC (BEAKER) (test 32.7 GM/DL 32.3-36.5 code = 752) RED CELL DISTRIBUTION WIDTH (BEAKER) (test code 15.5 % 11.6-14.4 = 412) PLATELET COUNT (BEAKER) (test code = 756) 146 K/CU MM 150-45 0 MEAN PLATELET VOLUME (BEAKER) (test code = 754) 10.5 fL 9.4-12.4 NUCLEATED RED BLOOD CELLS (BEAKER) (test code = 0 /100 WBC 0-0 413) NEUTROPHILS RELATIVE PERCENT (BEAKER) (test code 73 % = 429) LYMPHOCYTES RELATIVE PERCENT (BEAKER) (test code 11 % = 430) MONOCYTES RELATIVE PERCENT (BEAKER) (test code = 13 % 431) EOSINOPHILS RELATIVE PERCENT (BEAKER) (test code 2 % = 432) BASOPHILS RELATIVE PERCENT (BEAKER) (test code = 0 % 437) NEUTROPHILS ABSOLUTE COUNT (BEAKER) (test code = 4.95 K/ L 1.78-5.38 670) LYMPHOCYTES ABSOLUTE COUNT (BEAKER) (test code = 0.76 K/ L 1.32-3.57 414) MONOCYTES ABSOLUTE COUNT (BEAKER) (test code = 0.86 K/ L 0 .30-0.82 415) EOSINOPHILS ABSOLUTE COUNT (BEAKER) (test code = 0.13 K/ L 0.04-0.54 416) BASOPHILS ABSOLUTE COUNT (BEAKER) (test code = 0.02 K/ L 0 .01-0.08 417) IMMATURE GRANULOCYTES-RELATIVE PERCENT (BEAKER) 0 % 0-1 (test code = 2801) CBC (HEMOGRAM ONLY)2019-05-30 05:30:00 Test Item Value Reference Range Comments WHITE BLOOD CELL COUNT (BEAKER) (test code = 6.8 K/ L 3.5 -10.5 775) RED BLOOD CELL COUNT (BEAKER) (test code = 761) 3.16 M/ L 4.63-6.08 HEMOGLOBIN (BEAKER) (test code = 410) 9.1 GM/DL 13.7-17.5 HEMATOCRIT (BEAKER) (test code = 411) 27.8 % 40.1-51.0 MEAN CORPUSCULAR VOLUME (BEAKER) (test code = 88.0 fL 79 .0-92.2 753) MEAN CORPUSCULAR HEMOGLOBIN (BEAKER) (test code 28.8 pg 25.7-32.2 = 751) MEAN CORPUSCULAR HEMOGLOBIN CONC (BEAKER) (test 32.7 GM/DL 32.3-36.5 code = 752) RED CELL DISTRIBUTION WIDTH (BEAKER) (test code 15.5 % 11.6-14.4 = 412) PLATELET COUNT (BEAKER) (test code = 756) 146 K/CU MM 150-45 0 MEAN PLATELET VOLUME (BEAKER) (test code = 754) 10.5 fL 9.4-12.4 NUCLEATED RED BLOOD CELLS (BEAKER) (test code = 0 /100 WBC 0-0 413) CBC W/PLT COUNT & AUTO [id number] 21:42:00 Test Item Value Reference Range Comments WHITE BLOOD CELL COUNT (BEAKER) (test code = 6.3 K/ L 3.5 -10.5 775) RED BLOOD CELL COUNT (BEAKER) (test code = 761) 2.84 M/ L 4.63-6.08 HEMOGLOBIN (BEAKER) (test code = 410) 8.1 GM/DL 13.7-17.5 HEMATOCRIT (BEAKER) (test code = 411) 24.8 % 40.1-51.0 MEAN CORPUSCULAR VOLUME (BEAKER) (test code = 87.3 fL 79 .0-92.2 753) MEAN CORPUSCULAR HEMOGLOBIN (BEAKER) (test code 28.5 pg 25.7-32.2 = 751) MEAN CORPUSCULAR HEMOGLOBIN CONC (BEAKER) (test 32.7 GM/DL 32.3-36.5 code = 752) RED CELL DISTRIBUTION WIDTH (BEAKER) (test code 15.5 % 11.6-14.4 = 412) PLATELET COUNT (BEAKER) (test code = 756) 129 K/CU MM 150-45 0 MEAN PLATELET VOLUME (BEAKER) (test code = 754) 10.4 fL 9.4-12.4 NUCLEATED RED BLOOD CELLS (BEAKER) (test code = 0 /100 WBC 0-0 413) NEUTROPHILS RELATIVE PERCENT (BEAKER) (test code 76 % = 429) LYMPHOCYTES RELATIVE PERCENT (BEAKER) (test code 9 % = 430) MONOCYTES RELATIVE PERCENT (BEAKER) (test code = 13 % 431) EOSINOPHILS RELATIVE PERCENT (BEAKER) (test code 2 % = 432) BASOPHILS RELATIVE PERCENT (BEAKER) (test code = 0 % 437) NEUTROPHILS ABSOLUTE COUNT (BEAKER) (test code = 4.80 K/ L 1.78-5.38 670) LYMPHOCYTES ABSOLUTE COUNT (BEAKER) (test code = 0.55 K/ L 1.32-3.57 414) MONOCYTES ABSOLUTE COUNT (BEAKER) (test code = 0.79 K/ L 0 .30-0.82 415) EOSINOPHILS ABSOLUTE COUNT (BEAKER) (test code = 0.10 K/ L 0.04-0.54 416) BASOPHILS ABSOLUTE COUNT (BEAKER) (test code = 0.01 K/ L 0 .01-0.08 417) IMMATURE GRANULOCYTES-RELATIVE PERCENT (BEAKER) 1 % 0-1 (test code = 2801) [id number] 13:50:00 Test Item Value Reference Range Comments POTASSIUM (BEAKER) (test code = 379) 3.7 meq/L 3.5-5.1 Systems Testing Laboratory Technician ID - MARISABEL MCBC W/PLT COUNT & AUTO [id number] 12:30:00 Test Item Value Reference Range Comments WHITE BLOOD CELL COUNT (BEAKER) (test code = 7.8 K/ L 3.5 -10.5 775) RED BLOOD CELL COUNT (BEAKER) (test code = 761) 3.32 M/ L 4.63-6.08 HEMOGLOBIN (BEAKER) (test code = 410) 9.6 GM/DL 13.7-17.5 HEMATOCRIT (BEAKER) (test code = 411) 28.6 % 40.1-51.0 MEAN CORPUSCULAR VOLUME (BEAKER) (test code = 86.1 fL 79 .0-92.2 753) MEAN CORPUSCULAR HEMOGLOBIN (BEAKER) (test code 28.9 pg 25.7-32.2 = 751) MEAN CORPUSCULAR HEMOGLOBIN CONC (BEAKER) (test 33.6 GM/DL 32.3-36.5 code = 752) RED CELL DISTRIBUTION WIDTH (BEAKER) (test code 15.7 % 11.6-14.4 = 412) PLATELET COUNT (BEAKER) (test code = 756) 148 K/CU MM 150-45 0 MEAN PLATELET VOLUME (BEAKER) (test code = 754) 10.6 fL 9.4-12.4 NUCLEATED RED BLOOD CELLS (BEAKER) (test code = 0 /100 WBC 0-0 413) NEUTROPHILS RELATIVE PERCENT (BEAKER) (test code 83 % = 429) LYMPHOCYTES RELATIVE PERCENT (BEAKER) (test code 7 % = 430) MONOCYTES RELATIVE PERCENT (BEAKER) (test code = 9 % 431) EOSINOPHILS RELATIVE PERCENT (BEAKER) (test code 0 % = 432) BASOPHILS RELATIVE PERCENT (BEAKER) (test code = 0 % 437) NEUTROPHILS ABSOLUTE COUNT (BEAKER) (test code = 6.44 K/ L 1.78-5.38 670) LYMPHOCYTES ABSOLUTE COUNT (BEAKER) (test code = 0.57 K/ L 1.32-3.57 414) MONOCYTES ABSOLUTE COUNT (BEAKER) (test code = 0.70 K/ L 0 .30-0.82 415) EOSINOPHILS ABSOLUTE COUNT (BEAKER) (test code = 0.03 K/ L 0.04-0.54 416) BASOPHILS ABSOLUTE COUNT (BEAKER) (test code = 0.00 K/ L 0 .01-0.08 417) IMMATURE GRANULOCYTES-RELATIVE PERCENT (BEAKER) 1 % 0-1 (test code = 2801) POCT-GLUCOSE [id number] 12:12:00 Test Item Value Reference Range Comments POC-GLUCOSE METER (BEAKER) 128 mg/dL 70-110 : [facility] AT [facility] [address] [facility] (test code = 1538) [facility], [address]: Systems Testing Laboratory Technician/Technic alli ID = [id number] for RIVKA CURIEL BASIC METABOLIC [id number] 07:40:00 Test Item Value Reference Range Comments SODIUM (BEAKER) (test 132 meq/L 136-145 code = 381) POTASSIUM (BEAKER) (test 3.8 meq/L 3.5-5.1 code = 379) CHLORIDE (BEAKER) (test 96 meq/L 98-107 code = 382) CO2 (BEAKER) (test code = 24 meq/L 22-29 355) BLOOD UREA NITROGEN 55 mg/dL 7-21 (BEAKER) (test code = 354) CREATININE (BEAKER) (test 3.38 mg/dL 0.57-1.25 code = 358) GLUCOSE RANDOM (BEAKER) 106 mg/dL 70-105 (test code = 652) CALCIUM (BEAKER) (test 7.9 mg/dL 8.4-10.2 code = 697) EGFR (BEAKER) (test code 18 mL/min/1.73 sq m EST IMATED GFR IS NOT = 1092) ACCURATE CREA TININE CLEARANCE IN PRE DICTING GLOMERULAR FILTR ATION RATE. ESTIMATED GFR IS NOT APPLICABLE F OR DIALYSIS PATIENT S. Systems Testing Laboratory Technician ID - [id number] 07:22:00 Test Item Value Reference Range Comments PHOSPHORUS (BEAKER) (test code = 604) 4.4 mg/dL 2.3-4.7 Systems Testing Laboratory Technician ID - [id number] 07:22:00 Test Item Value Reference Range Comments MAGNESIUM (BEAKER) (test code = 627) 2.2 mg/dL 1.6-2.6 Systems Testing Laboratory Technician ID - SUE, CHEST, 1 VIEW, NON [id number] 05:01:00Reason for exam:->s/p ACBShould this be performed at the bedside?->YesFINAL REPORT Chest one view. Clinical history: s/p ACB Comparison: Chest radiograph 05/28/2019, 5:59 PM. Technique: A single frontal view of the chest was obtained. Findings:There is a right IJ [place] catheter with tip in the right pulmonary [...] There is no pneumothorax. Signed: Theodore Mccormick [facility] Verified Date/Time: 05/29/2019 05:01:58 OXYGEN SATURATION, [id number] 04:35:00 Test Item Value Reference Range Comments O2 SATURATION (MEASURED) (BEAKER) (test code = 1455) 55.0 % SODIUM NA-STAT [id number] 04:23:00 Test Item Value Reference Range Comments SODIUM (BEAKER) (test code = 381) 128 meq/L 135-148 HGB/HCT (H&H) - STAT [id number] 04:23:00 Test Item Value Reference Range Comments HEMOGLOBIN (BEAKER) (test code = 410) 10.4 g/dL 13.0-16.8 HEMATOCRIT (BEAKER) (test code = 411) 31.0 % 40.0-50.0 CALCIUM, [id number] 04:23:00 Test Item Value Reference Range Comments CALCIUM IONIZED (BEAKER) (test code = 698) 1.05 mmol/L 1.12- 1.27 PH, BLOOD (BEAKER) (test code = 1810) 7.50 BLOOD GAS, [id number] 04:22:00 Test Item Value Reference Range Comments PH ARTERIAL (BEAKER) (test code = 383) 7.50 7.35-7.45 PCO2 ARTERIAL (BEAKER) (test code = 384) 34 mmHg 35-45 PO2 ARTERIAL (BEAKER) (test code = 385) 78 mmHg 80-90 O2 SATURATION ARTERIAL (BEAKER) (test code = 386) 96.3 % 96.0-97.0 HCO3 ARTERIAL (BEAKER) (test code = 388) 26 mmol/L 21-29 BASE EXCESS ARTERIAL (BEAKER) (test code = 387) 2.6 mmol/L -2.0-3.0 PATIENT TEMPERATURE (BEAKER) (test code = 1818) 37.4 C FIO2 (BEAKER) (test code = 1819) 100.0 % GLUCOSE-STAT [id number] 03:56:00 Test Item Value Reference Range Comments GLUCOSE RANDOM (BEAKER) (test code = 652) 109 mg/dL 70-110 POTASSIUM-STAT [id number] 03:56:00 Test Item Value Reference Range Comments POTASSIUM (BEAKER) (test code = 379) 3.8 meq/L 3.6-5.5 CBC (HEMOGRAM ONLY)2019-05-29 03:46:00 Test Item Value Reference Range Comments WHITE BLOOD CELL COUNT (BEAKER) (test code = 8.7 K/ L 3.5 -10.5 775) RED BLOOD CELL COUNT (BEAKER) (test code = 761) 3.32 M/ L 4.63-6.08 HEMOGLOBIN (BEAKER) (test code = 410) 9.8 GM/DL 13.7-17.5 HEMATOCRIT (BEAKER) (test code = 411) 28.1 % 40.1-51.0 MEAN CORPUSCULAR VOLUME (BEAKER) (test code = 84.6 fL 79 .0-92.2 753) MEAN CORPUSCULAR HEMOGLOBIN (BEAKER) (test code 29.5 pg 25.7-32.2 = 751) MEAN CORPUSCULAR HEMOGLOBIN CONC (BEAKER) (test 34.9 GM/DL 32.3-36.5 code = 752) RED CELL DISTRIBUTION WIDTH (BEAKER) (test code 15.7 % 11.6-14.4 = 412) PLATELET COUNT (BEAKER) (test code = 756) 141 K/CU MM 150-45 0 MEAN PLATELET VOLUME (BEAKER) (test code = 754) 10.5 fL 9.4-12.4 NUCLEATED RED BLOOD CELLS (BEAKER) (test code = 0 /100 WBC 0-0 413) BASIC METABOLIC [id number] 22:22:00 Test Item Value Reference Range Comments SODIUM (BEAKER) (test 126 meq/L 136-145 code = 381) POTASSIUM (BEAKER) (test 3.3 meq/L 3.5-5.1 code = 379) CHLORIDE (BEAKER) (test 94 meq/L 98-107 code = 382) CO2 (BEAKER) (test code = 22 meq/L 22-29 355) BLOOD UREA NITROGEN 55 mg/dL 7-21 (BEAKER) (test code = 354) CREATININE (BEAKER) (test 3.52 mg/dL 0.57-1.25 code = 358) GLUCOSE RANDOM (BEAKER) 129 mg/dL 70-105 (test code = 652) CALCIUM (BEAKER) (test 7.8 mg/dL 8.4-10.2 code = 697) EGFR (BEAKER) (test code 17 mL/min/1.73 sq m EST IMATED GFR IS NOT = 1092) ACCURATE CREA TININE CLEARANCE IN PRE DICTING GLOMERULAR FILTR ATION RATE. ESTIMATED GFR IS NOT APPLICABLE F OR DIALYSIS PATIENT S. Systems Testing Laboratory Technician ID - KENNRAD, CHEST, 1 VIEW, NON [id number] 18:28:00Reason for exam:->pulm edemaFINAL REPORT RAD, CHEST, 1 VIEW, NON DEPT INDICATION: pulm edema COMPARISON: Prior day's exam FINDINGS: Portable frontal view of the chest. IMPRESSION: Support Lines: [place] tip overlies the pulmonary outflow tract. Sternotomy wires. Lungs and pleura: Unchanged airspace and pleural opacities. No pneumothorax.Heart and mediastinum: Stable contours. Stable surgical changes.Additional findings: None. Signed: Marcella Burdick MDReport Verified Date/Time: 05/28/2019 18:28:02 Reading Location: [address] Neuro Reading Room LACTIC ACID, [id number] 17:17:00 Test Item Value Reference Range Comments LACTATE BLOOD ARTERIAL (2) 1.1 mmol/L 0.5-2.2 Speci men slightly hemolyzed (BEAKER) (test code = 2874) Systems Testing Laboratory Technician ID - MELLY FPOCT-GLUCOSE [id number] 16:43:00 Test Item Value Reference Range Comments POC-GLUCOSE METER (BEAKER) 118 mg/dL 70-110 : [facility] AT [facility] [address] [facility] (test code = 1538) [place], [address]: Systems Testing Laboratory Technician/Technic alli ID = [id number] for CASIMIRO HURTADO CBC W/PLT COUNT & AUTO [id number] 16:37:00 Test Item Value Reference Range Comments WHITE BLOOD CELL COUNT (BEAKER) (test code = 10.6 K/ L 3.5 -10.5 775) RED BLOOD CELL COUNT (BEAKER) (test code = 761) 3.14 M/ L 4.63-6.08 HEMOGLOBIN (BEAKER) (test code = 410) 9.3 GM/DL 13.7-17.5 HEMATOCRIT (BEAKER) (test code = 411) 27.0 % 40.1-51.0 MEAN CORPUSCULAR VOLUME (BEAKER) (test code = 86.0 fL 79 .0-92.2 753) MEAN CORPUSCULAR HEMOGLOBIN (BEAKER) (test code 29.6 pg 25.7-32.2 = 751) MEAN CORPUSCULAR HEMOGLOBIN CONC (BEAKER) (test 34.4 GM/DL 32.3-36.5 code = 752) RED CELL DISTRIBUTION WIDTH (BEAKER) (test code 15.7 % 11.6-14.4 = 412) PLATELET COUNT (BEAKER) (test code = 756) 165 K/CU MM 150-45 0 MEAN PLATELET VOLUME (BEAKER) (test code = 754) 10.8 fL 9.4-12.4 NUCLEATED RED BLOOD CELLS (BEAKER) (test code = 0 /100 WBC 0-0 413) NEUTROPHILS RELATIVE PERCENT (BEAKER) (test code 81 % = 429) LYMPHOCYTES RELATIVE PERCENT (BEAKER) (test code 9 % = 430) MONOCYTES RELATIVE PERCENT (BEAKER) (test code = 10 % 431) EOSINOPHILS RELATIVE PERCENT (BEAKER) (test code 0 % = 432) BASOPHILS RELATIVE PERCENT (BEAKER) (test code = 0 % 437) NEUTROPHILS ABSOLUTE COUNT (BEAKER) (test code = 8.54 K/ L 1.78-5.38 670) LYMPHOCYTES ABSOLUTE COUNT (BEAKER) (test code = 0.90 K/ L 1.32-3.57 414) MONOCYTES ABSOLUTE COUNT (BEAKER) (test code = 1.04 K/ L 0 .30-0.82 415) EOSINOPHILS ABSOLUTE COUNT (BEAKER) (test code = 0.01 K/ L 0.04-0.54 416) BASOPHILS ABSOLUTE COUNT (BEAKER) (test code = 0.01 K/ L 0 .01-0.08 417) IMMATURE GRANULOCYTES-RELATIVE PERCENT (BEAKER) 1 % 0-1 (test code = 2801) BLOOD GAS, [id number] 16:36:00 Test Item Value Reference Range Comments PH ARTERIAL (BEAKER) (test code = 383) 7.47 7.35-7.45 PCO2 ARTERIAL (BEAKER) (test code = 384) 32 mmHg 35-45 PO2 ARTERIAL (BEAKER) (test code = 385) 60 mmHg 80-90 O2 SATURATION ARTERIAL (BEAKER) (test code = 92.1 % 96. 0-97.0 386) HCO3 ARTERIAL (BEAKER) (test code = 388) 22 mmol/L 21-29 BASE EXCESS ARTERIAL (BEAKER) (test code = 387) -0.7 mmol/L -2.0-3.0 PATIENT TEMPERATURE (BEAKER) (test code = 1818) 37.6 C FIO2 (BEAKER) (test code = 1819) 100.0 % OXYGEN SATURATION, [id number] 16:33:00 Test Item Value Reference Range Comments O2 SATURATION (MEASURED) (BEAKER) (test code = 1455) 46.3 % LACTIC ACID, [id number] 13:39:00 Test Item Value Reference Range Comments LACTATE BLOOD ARTERIAL (2) (BEAKER) (test code = 0.9 mmol/L 0.5-2.2 2874) Systems Testing Laboratory Technician ID - MELLY FPOCT-GLUCOSE [id number] 13:09:00 Test Item Value Reference Range Comments POC-GLUCOSE METER (BEAKER) 112 mg/dL 70-110 : [facility] AT [facility] [address] (test code = 1538) [place], [address]: Systems Testing Laboratory Technician/Technic alli ID = [id number] for CASIMIRO HURTADO CALCIUM, [id number] 12:35:00 Test Item Value Reference Range Comments CALCIUM IONIZED (BEAKER) (test code = 698) 1.05 mmol/L 1.12- 1.27 PH, BLOOD (BEAKER) (test code = 1810) 7.48 OXYGEN SATURATION, [id number] 12:34:00 Test Item Value Reference Range Comments O2 SATURATION (MEASURED) (BEAKER) (test code = 1455) 59.9 % BLOOD GAS, [id number] 12:34:00 Test Item Value Reference Range Comments PH ARTERIAL (BEAKER) (test code = 383) 7.47 7.35-7.45 PCO2 ARTERIAL (BEAKER) (test code = 384) 30 mmHg 35-45 PO2 ARTERIAL (BEAKER) (test code = 385) 72 mmHg 80-90 O2 SATURATION ARTERIAL (BEAKER) (test code = 95.5 % 96. 0-97.0 386) HCO3 ARTERIAL (BEAKER) (test code = 388) 21 mmol/L 21-29 BASE EXCESS ARTERIAL (BEAKER) (test code = 387) -1.6 mmol/L -2.0-3.0 PATIENT TEMPERATURE (BEAKER) (test code = 1818) 37.3 C FIO2 (BEAKER) (test code = 1819) 100.0 % CBC W/PLT COUNT & AUTO [id number] 09:27:00 Test Item Value Reference Range Comments WHITE BLOOD CELL COUNT (BEAKER) (test code = 9.7 K/ L 3.5 -10.5 775) RED BLOOD CELL COUNT (BEAKER) (test code = 761) 2.69 M/ L 4.63-6.08 HEMOGLOBIN (BEAKER) (test code = 410) 8.1 GM/DL 13.7-17.5 HEMATOCRIT (BEAKER) (test code = 411) 23.8 % 40.1-51.0 MEAN CORPUSCULAR VOLUME (BEAKER) (test code = 88.5 fL 79 .0-92.2 753) MEAN CORPUSCULAR HEMOGLOBIN (BEAKER) (test code 30.1 pg 25.7-32.2 = 751) MEAN CORPUSCULAR HEMOGLOBIN CONC (BEAKER) (test 34.0 GM/DL 32.3-36.5 code = 752) RED CELL DISTRIBUTION WIDTH (BEAKER) (test code 15.2 % 11.6-14.4 = 412) PLATELET COUNT (BEAKER) (test code = 756) 129 K/CU MM 150-45 0 MEAN PLATELET VOLUME (BEAKER) (test code = 754) 10.9 fL 9.4-12.4 NUCLEATED RED BLOOD CELLS (BEAKER) (test code = 0 /100 WBC 0-0 413) NEUTROPHILS RELATIVE PERCENT (BEAKER) (test code 81 % = 429) LYMPHOCYTES RELATIVE PERCENT (BEAKER) (test code 9 % = 430) MONOCYTES RELATIVE PERCENT (BEAKER) (test code = 8 % 431) EOSINOPHILS RELATIVE PERCENT (BEAKER) (test code 0 % = 432) BASOPHILS RELATIVE PERCENT (BEAKER) (test code = 0 % 437) NEUTROPHILS ABSOLUTE COUNT (BEAKER) (test code = 7.88 K/ L 1.78-5.38 670) LYMPHOCYTES ABSOLUTE COUNT (BEAKER) (test code = 0.88 K/ L 1.32-3.57 414) MONOCYTES ABSOLUTE COUNT (BEAKER) (test code = 0.81 K/ L 0 .30-0.82 415) EOSINOPHILS ABSOLUTE COUNT (BEAKER) (test code = 0.03 K/ L 0.04-0.54 416) BASOPHILS ABSOLUTE COUNT (BEAKER) (test code = 0.01 K/ L 0 .01-0.08 417) IMMATURE GRANULOCYTES-RELATIVE PERCENT (BEAKER) 1 % 0-1 (test code = 2801) POCT-GLUCOSE [id number] 08:09:00 Test Item Value Reference Range Comments POC-GLUCOSE METER (BEAKER) 109 mg/dL 70-110 : [facility] AT [facility] [address] (test code = 1538) [facility], [address]: Systems Testing Laboratory Technician/Technic alli ID = [id number] for GENESIS, SEEM A RAD, CHEST, 1 VIEW, NON [id number] 07:02:00Reason for exam:->s/p ACBShould this be performed at the bedside?->YesFINAL REPORT Chest, one view. HISTORY: s/p ACB COMPARISON: Radiograph from IMPRESSION: The chest tubes have been removed. PA catheter is unchanged in position. Prior left atrial appendage clipping. The small right pleural effusion and left basilar atelectasis are unchanged. Unchanged interstitial pulmonary edema. The cardiac silhouette is unchanged. No acute bony abnormality. Signed: Colette Veloz MDReport Verified Date/Time: 05/28/2019 07:02:44 Reading Location: [address] Body Reading Room CBC (HEMOGRAM ONLY)2019-05-28 05:39:00 Test Item Value Reference Range Comments WHITE BLOOD CELL COUNT (BEAKER) (test code = 9.8 K/ L 3.5 -10.5 775) RED BLOOD CELL COUNT (BEAKER) (test code = 761) 2.71 M/ L 4.63-6.08 HEMOGLOBIN (BEAKER) (test code = 410) 8.1 GM/DL 13.7-17.5 HEMATOCRIT (BEAKER) (test code = 411) 23.6 % 40.1-51.0 MEAN CORPUSCULAR VOLUME (BEAKER) (test code = 87.1 fL 79 .0-92.2 753) MEAN CORPUSCULAR HEMOGLOBIN (BEAKER) (test code 29.9 pg 25.7-32.2 = 751) MEAN CORPUSCULAR HEMOGLOBIN CONC (BEAKER) (test 34.3 GM/DL 32.3-36.5 code = 752) RED CELL DISTRIBUTION WIDTH (BEAKER) (test code 15.1 % 11.6-14.4 = 412) PLATELET COUNT (BEAKER) (test code = 756) 143 K/CU MM 150-45 0 MEAN PLATELET VOLUME (BEAKER) (test code = 754) 11.0 fL 9.4-12.4 NUCLEATED RED BLOOD CELLS (BEAKER) (test code = 0 /100 WBC 0-0 413) CALCIUM, [id number] 04:59:00 Test Item Value Reference Range Comments CALCIUM IONIZED (BEAKER) (test code = 698) 1.03 mmol/L 1.12- 1.27 PH, BLOOD (BEAKER) (test code = 1810) 7.50 TROPONIN [id number] 04:15:00 Test Item Value Reference Range Comments TROPONIN I (BEAKER) (test code = 397) 2.22 ng/mL 0.00-0.03 Troponin I (TnI) levels [...] failure, acidosis, acute neurological disease, and persistent tachyarrhythmia.Systems Testing Laboratory Technician ID - MARISABEL MBASIC METABOLIC [id number] 04:13:00 Test Item Value Reference Range Comments SODIUM (BEAKER) (test 130 meq/L 136-145 code = 381) POTASSIUM (BEAKER) (test 4.0 meq/L 3.5-5.1 code = 379) CHLORIDE (BEAKER) (test 98 meq/L 98-107 code = 382) CO2 (BEAKER) (test code = 21 meq/L 22-29 355) BLOOD UREA NITROGEN 52 mg/dL 7-21 (BEAKER) (test code = 354) CREATININE (BEAKER) (test 3.23 mg/dL 0.57-1.25 code = 358) GLUCOSE RANDOM (BEAKER) 112 mg/dL 70-105 (test code = 652) CALCIUM (BEAKER) (test 7.7 mg/dL 8.4-10.2 code = 697) EGFR (BEAKER) (test code 19 mL/min/1.73 sq m EST IMATED GFR IS NOT = 1092) ACCURATE CREA TININE CLEARANCE IN PRE DICTING GLOMERULAR FILTR ATION RATE. ESTIMATED GFR IS NOT APPLICABLE F OR DIALYSIS PATIENT S. Systems Testing Laboratory Technician ID - MARISABEL [id number] 04:03:00 Test Item Value Reference Range Comments PHOSPHORUS (BEAKER) (test code = 604) 4.8 mg/dL 2.3-4.7 Systems Testing Laboratory Technician ID - MARISABEL [id number] 04:03:00 Test Item Value Reference Range Comments MAGNESIUM (BEAKER) (test code = 627) 2.2 mg/dL 1.6-2.6 Systems Testing Laboratory Technician ID - MARISABEL MTROPONIN [id number] 19:48:00 Test Item Value Reference Range Comments TROPONIN I (BEAKER) (test code = 397) 2.64 ng/mL 0.00-0.03 Troponin I (TnI) levels [...] failure, acidosis, acute neurological disease, and persistent tachyarrhythmia.Systems Testing Laboratory Technician ID - TANESHAGIOASIC METABOLIC PANEL 2019-05-27 19:41:00 Test Item Value Reference Range Comments SODIUM (BEAKER) (test 130 meq/L 136-145 code = 381) POTASSIUM (BEAKER) (test 4.3 meq/L 3.5-5.1 code = 379) CHLORIDE (BEAKER) (test 100 meq/L 98-107 code = 382) CO2 (BEAKER) (test code = 21 meq/L 22-29 355) BLOOD UREA NITROGEN 49 mg/dL 7-21 (BEAKER) (test code = 354) CREATININE (BEAKER) (test 3.12 mg/dL 0.57-1.25 code = 358) GLUCOSE RANDOM (BEAKER) 115 mg/dL 70-105 (test code = 652) CALCIUM (BEAKER) (test 8.0 mg/dL 8.4-10.2 code = 697) EGFR (BEAKER) (test code 20 mL/min/1.73 sq m EST IMATED GFR IS NOT = 1092) ACCURATE CREA TININE CLEARANCE IN PRE DICTING GLOMERULAR FILTR ATION RATE. ESTIMATED GFR IS NOT APPLICABLE F OR DIALYSIS PATIENT S. Systems Testing Laboratory Technician ID - TANESHANLACTIC ACID, [id number] 19:34:00 Test Item Value Reference Range Comments LACTATE BLOOD ARTERIAL (2) (BEAKER) (test code = 1.0 mmol/L 0.5-2.2 7274) Systems Testing Laboratory Technician ID - TANESHANCBC W/PLT COUNT & AUTO [id number] 19:23:00 Test Item Value Reference Range Comments WHITE BLOOD CELL COUNT (BEAKER) (test code = 10.8 K/ L 3.5 -10.5 775) RED BLOOD CELL COUNT (BEAKER) (test code = 761) 2.67 M/ L 4.63-6.08 HEMOGLOBIN (BEAKER) (test code = 410) 8.0 GM/DL 13.7-17.5 HEMATOCRIT (BEAKER) (test code = 411) 23.9 % 40.1-51.0 MEAN CORPUSCULAR VOLUME (BEAKER) (test code = 89.5 fL 79 .0-92.2 753) MEAN CORPUSCULAR HEMOGLOBIN (BEAKER) (test code 30.0 pg 25.7-32.2 = 751) MEAN CORPUSCULAR HEMOGLOBIN CONC (BEAKER) (test 33.5 GM/DL 32.3-36.5 code = 752) RED CELL DISTRIBUTION WIDTH (BEAKER) (test code 15.4 % 11.6-14.4 = 412) PLATELET COUNT (BEAKER) (test code = 756) 133 K/CU MM 150-45 0 MEAN PLATELET VOLUME (BEAKER) (test code = 754) 10.8 fL 9.4-12.4 NUCLEATED RED BLOOD CELLS (BEAKER) (test code = 0 /100 WBC 0-0 413) NEUTROPHILS RELATIVE PERCENT (BEAKER) (test code 81 % = 429) LYMPHOCYTES RELATIVE PERCENT (BEAKER) (test code 9 % = 430) MONOCYTES RELATIVE PERCENT (BEAKER) (test code = 9 % 431) EOSINOPHILS RELATIVE PERCENT (BEAKER) (test code 0 % = 432) BASOPHILS RELATIVE PERCENT (BEAKER) (test code = 0 % 437) NEUTROPHILS ABSOLUTE COUNT (BEAKER) (test code = 8.73 K/ L 1.78-5.38 670) LYMPHOCYTES ABSOLUTE COUNT (BEAKER) (test code = 0.96 K/ L 1.32-3.57 414) MONOCYTES ABSOLUTE COUNT (BEAKER) (test code = 1.00 K/ L 0 .30-0.82 415) EOSINOPHILS ABSOLUTE COUNT (BEAKER) (test code = 0.00 K/ L 0.04-0.54 416) BASOPHILS ABSOLUTE COUNT (BEAKER) (test code = 0.01 K/ L 0 .01-0.08 417) IMMATURE GRANULOCYTES-RELATIVE PERCENT (BEAKER) 1 % 0-1 (test code = 2801) BLOOD GAS, [id number] 19:20:00 Test Item Value Reference Range Comments PH ARTERIAL (BEAKER) (test code = 383) 7.45 7.35-7.45 PCO2 ARTERIAL (BEAKER) (test code = 384) 31 mmHg 35-45 PO2 ARTERIAL (BEAKER) (test code = 385) 90 mmHg 80-90 O2 SATURATION ARTERIAL (BEAKER) (test code = 97.4 % 96. 0-97.0 386) HCO3 ARTERIAL (BEAKER) (test code = 388) 21 mmol/L 21-29 BASE EXCESS ARTERIAL (BEAKER) (test code = 387) -2.5 mmol/L -2.0-3.0 PATIENT TEMPERATURE (BEAKER) (test code = 1818) 36.7 C FIO2 (BEAKER) (test code = 1819) 36.0 % OXYGEN SATURATION, [id number] 19:16:00 Test Item Value Reference Range Comments O2 SATURATION (MEASURED) (BEAKER) (test code = 1455) 35.8 % OXYGEN SATURATION, [id number] 16:48:00 Test Item Value Reference Range Comments O2 SATURATION (MEASURED) (BEAKER) (test code = 1455) 35.0 % OXYGEN SATURATION, [id number] 13:44:00 Test Item Value Reference Range Comments O2 SATURATION (MEASURED) (BEAKER) (test code = 1455) 28.7 % HEMOGLOBIN AND [id number] 13:36:00 Test Item Value Reference Range Comments HEMOGLOBIN (BEAKER) (test code = 410) 8.3 GM/DL 13.7-17.5 HEMATOCRIT (BEAKER) (test code = 411) 24.9 % 40.1-51.0 Systems Testing Laboratory Technician ID - [id number] SATURATION, [id number] 10:37:00 Test Item Value Reference Range Comments O2 SATURATION (MEASURED) (BEAKER) (test code = 1455) 39.1 % OXYGEN SATURATION, [id number] 09:45:00 Test Item Value Reference Range Comments O2 SATURATION (MEASURED) (BEAKER) (test code = 1455) 28.0 % RAD, CHEST, 1 VIEW, NON [id number] 08:03:00Reason for exam:->s/p ACBShould this be performed at the bedside?->YesFINAL REPORT RAD, CHEST, 1 VIEW, NON DEPT INDICATION: s/p ACB COMPARISON: Prior day's exam FINDINGS: Portable frontal view of the chest. IMPRESSION: Support Lines: [place] tip overlies the pulmonary outflow tract. Mediastinal drains. Lungs and pleura: Small right effusion and interstitial edema are unchanged. Trace left effusion. No pneumothorax.Heart and mediastinum: Stable contours. Stable surgical changes.Additional findings: None. Signed: Marcella Burdickeport Verified Date/Time: 05/27/2019 08:03:19 Reading Location: [address] Neuro Reading Room POCT-GLUCOSE [id number] 06:38:00 Test Item Value Reference Range Comments POC-GLUCOSE METER (BEAKER) 134 mg/dL 70-110 : [facility] LINA AT [facility] [address] [facility] (test code = 1538) [facility], [address]: Systems Testing Laboratory Technician/Technic alli ID = [id number] for SOURAV CARPIO CALCIUM, [id number] 04:05:00 Test Item Value Reference Range Comments CALCIUM IONIZED (BEAKER) (test code = 698) 1.11 mmol/L 1.12- 1.27 PH, BLOOD (BEAKER) (test code = 1810) 7.41 OXYGEN SATURATION, [id number] 04:04:00 Test Item Value Reference Range Comments O2 SATURATION (MEASURED) (BEAKER) (test code = 1455) 40.6 % BLOOD GAS, [id number] 04:04:00 Test Item Value Reference Range Comments PH ARTERIAL (BEAKER) (test code = 383) 7.41 7.35-7.45 PCO2 ARTERIAL (BEAKER) (test code = 384) 34 mmHg 35-45 PO2 ARTERIAL (BEAKER) (test code = 385) 82 mmHg 80-90 O2 SATURATION ARTERIAL (BEAKER) (test code = 96.5 % 96. 0-97.0 386) HCO3 ARTERIAL (BEAKER) (test code = 388) 21 mmol/L 21-29 BASE EXCESS ARTERIAL (BEAKER) (test code = 387) -3.1 mmol/L -2.0-3.0 PATIENT TEMPERATURE (BEAKER) (test code = 1818) 36.7 C FIO2 (BEAKER) (test code = 1819) 36.0 % BASIC METABOLIC [id number] 04:02:00 Test Item Value Reference Range Comments SODIUM (BEAKER) (test 134 meq/L 136-145 code = 381) POTASSIUM (BEAKER) (test 4.5 meq/L 3.5-5.1 code = 379) CHLORIDE (BEAKER) (test 103 meq/L 98-107 code = 382) CO2 (BEAKER) (test code = 21 meq/L 22-29 355) BLOOD UREA NITROGEN 36 mg/dL 7-21 (BEAKER) (test code = 354) CREATININE (BEAKER) (test 2.89 mg/dL 0.57-1.25 code = 358) GLUCOSE RANDOM (BEAKER) 132 mg/dL 70-105 (test code = 652) CALCIUM (BEAKER) (test 8.0 mg/dL 8.4-10.2 code = 697) EGFR (BEAKER) (test code 22 mL/min/1.73 sq m EST IMATED GFR IS NOT = 1092) ACCURATE CREA TININE CLEARANCE IN PRE DICTING GLOMERULAR FILTR ATION RATE. ESTIMATED GFR IS NOT APPLICABLE F OR DIALYSIS PATIENT S. Systems Testing Laboratory Technician ID - MARISABEL [id number] 03:52:00 Test Item Value Reference Range Comments PHOSPHORUS (BEAKER) (test code = 604) 4.6 mg/dL 2.3-4.7 Systems Testing Laboratory Technician ID - MARISABEL [id number] 03:52:00 Test Item Value Reference Range Comments MAGNESIUM (BEAKER) (test code = 627) 2.4 mg/dL 1.6-2.6 Systems Testing Laboratory Technician ID - MARISABEL [id number] 03:49:00 Test Item Value Reference Range Comments PROTIME (BEAKER) (test code = 759) 16.6 seconds 11.9-14.2 INR (BEAKER) (test code = 370) 1.4 <=5.9 PARTIAL THROMBOPLASTIN TIME (BEAKER) (test code 52.6 seconds 22.5-36.0 = 760) Effective 10/12/2018: PT Reference Range ChangeNew: 11.9-14.2 Previous: 11.7- 14.7RECOMMENDED COUMADIN/WARFARIN INR THERAPY RANGESSTANDARD DOSE: 2.0-3.0 Includes: PROPHYLAXIS for venous thrombosis, systemic embolization; TREATMENT for venous thrombosis and/or pulmonary embolus.HIGH RISK: Target INR is2.5-3.5 for patients wiht mechanical heart valves.CBC W/PLT COUNT & AUTO [id number] 03:47:00 Test Item Value Reference Range Comments WHITE BLOOD CELL COUNT (BEAKER) (test code = 8.7 K/ L 3.5 -10.5 775) RED BLOOD CELL COUNT (BEAKER) (test code = 761) 2.66 M/ L 4.63-6.08 HEMOGLOBIN (BEAKER) (test code = 410) 8.0 GM/DL 13.7-17.5 HEMATOCRIT (BEAKER) (test code = 411) 23.6 % 40.1-51.0 MEAN CORPUSCULAR VOLUME (BEAKER) (test code = 88.7 fL 79 .0-92.2 753) MEAN CORPUSCULAR HEMOGLOBIN (BEAKER) (test code 30.1 pg 25.7-32.2 = 751) MEAN CORPUSCULAR HEMOGLOBIN CONC (BEAKER) (test 33.9 GM/DL 32.3-36.5 code = 752) RED CELL DISTRIBUTION WIDTH (BEAKER) (test code 15.5 % 11.6-14.4 = 412) PLATELET COUNT (BEAKER) (test code = 756) 114 K/CU MM 150-45 0 MEAN PLATELET VOLUME (BEAKER) (test code = 754) 10.6 fL 9.4-12.4 NUCLEATED RED BLOOD CELLS (BEAKER) (test code = 0 /100 WBC 0-0 413) NEUTROPHILS RELATIVE PERCENT (BEAKER) (test code 79 % = 429) LYMPHOCYTES RELATIVE PERCENT (BEAKER) (test code 9 % = 430) MONOCYTES RELATIVE PERCENT (BEAKER) (test code = 11 % 431) EOSINOPHILS RELATIVE PERCENT (BEAKER) (test code 0 % = 432) BASOPHILS RELATIVE PERCENT (BEAKER) (test code = 0 % 437) NEUTROPHILS ABSOLUTE COUNT (BEAKER) (test code = 6.91 K/ L 1.78-5.38 670) LYMPHOCYTES ABSOLUTE COUNT (BEAKER) (test code = 0.81 K/ L 1.32-3.57 414) MONOCYTES ABSOLUTE COUNT (BEAKER) (test code = 0.93 K/ L 0 .30-0.82 415) EOSINOPHILS ABSOLUTE COUNT (BEAKER) (test code = 0.00 K/ L 0.04-0.54 416) BASOPHILS ABSOLUTE COUNT (BEAKER) (test code = 0.01 K/ L 0 .01-0.08 417) IMMATURE GRANULOCYTES-RELATIVE PERCENT (BEAKER) 1 % 0-1 (test code = 2801) POCT-GLUCOSE [id number] 01:56:00 Test Item Value Reference Range Comments POC-GLUCOSE METER (BEAKER) 125 mg/dL 70-110 : [facility] LINA AT [facility] [address] [facility] (test code = 1538) [facility], [address]: Systems Testing Laboratory Technician/Technic alli ID = [id number] for SOURAV CARPIO BASIC METABOLIC [id number] 21:41:00 Test Item Value Reference Range Comments SODIUM (BEAKER) (test 135 meq/L 136-145 code = 381) POTASSIUM (BEAKER) (test 4.7 meq/L 3.5-5.1 code = 379) CHLORIDE (BEAKER) (test 105 meq/L 98-107 code = 382) CO2 (BEAKER) (test code = 21 meq/L 22-29 355) BLOOD UREA NITROGEN 33 mg/dL 7-21 (BEAKER) (test code = 354) CREATININE (BEAKER) (test 2.88 mg/dL 0.57-1.25 code = 358) GLUCOSE RANDOM (BEAKER) 120 mg/dL 70-105 (test code = 652) CALCIUM (BEAKER) (test 7.9 mg/dL 8.4-10.2 code = 697) EGFR (BEAKER) (test code 22 mL/min/1.73 sq m EST IMATED GFR IS NOT = 1092) ACCURATE CREA TININE CLEARANCE IN PRE DICTING GLOMERULAR FILTR ATION RATE. ESTIMATED GFR IS NOT APPLICABLE F OR DIALYSIS PATIENT S. Systems Testing Laboratory Technician ID - [id number] 21:38:00 Test Item Value Reference Range Comments MAGNESIUM (BEAKER) (test code = 627) 2.3 mg/dL 1.6-2.6 Systems Testing Laboratory Technician ID - DBLACTIC ACID, [id number] 21:36:00 Test Item Value Reference Range Comments LACTATE BLOOD ARTERIAL (2) 1.5 mmol/L 0.5-2.2 Speci men moderately hemolyzed (BEAKER) (test code = 2874) Systems Testing Laboratory Technician ID - DBHEMOGLOBIN AND [id number] 21:25:00 Test Item Value Reference Range Comments HEMOGLOBIN (BEAKER) (test code = 410) 8.2 GM/DL 13.7-17.5 HEMATOCRIT (BEAKER) (test code = 411) 24.6 % 40.1-51.0 Systems Testing Laboratory Technician ID - [id number], [id number] 20:58:00 Test Item Value Reference Range Comments CALCIUM IONIZED (BEAKER) (test code = 698) 1.08 mmol/L 1.12- 1.27 PH, BLOOD (BEAKER) (test code = 1810) 7.42 POCT-GLUCOSE [id number] 16:35:00 Test Item Value Reference Range Comments POC-GLUCOSE METER (BEAKER) 93 mg/dL 70-110 : Not ified RN/MD: TESTED AT (test code = 1538) [facility] [address] [facility], [address]: Systems Testing Laboratory Technician/ Traditional Chinese Herbalist ID = [id number] for AUBREE RAIWILFREDMaldonado CBC W/PLT COUNT & AUTO [id number] 14:27:00 Test Item Value Reference Range Comments WHITE BLOOD CELL COUNT (BEAKER) (test code = 9.0 K/ L 3.5 -10.5 775) RED BLOOD CELL COUNT (BEAKER) (test code = 761) 2.93 M/ L 4.63-6.08 HEMOGLOBIN (BEAKER) (test code = 410) 8.7 GM/DL 13.7-17.5 HEMATOCRIT (BEAKER) (test code = 411) 25.8 % 40.1-51.0 MEAN CORPUSCULAR VOLUME (BEAKER) (test code = 88.1 fL 79 .0-92.2 753) MEAN CORPUSCULAR HEMOGLOBIN (BEAKER) (test code 29.7 pg 25.7-32.2 = 751) MEAN CORPUSCULAR HEMOGLOBIN CONC (BEAKER) (test 33.7 GM/DL 32.3-36.5 code = 752) RED CELL DISTRIBUTION WIDTH (BEAKER) (test code 14.8 % 11.6-14.4 = 412) PLATELET COUNT (BEAKER) (test code = 756) 153 K/CU MM 150-45 0 MEAN PLATELET VOLUME (BEAKER) (test code = 754) 10.7 fL 9.4-12.4 NUCLEATED RED BLOOD CELLS (BEAKER) (test code = 0 /100 WBC 0-0 413) NEUTROPHILS RELATIVE PERCENT (BEAKER) (test code 81 % = 429) LYMPHOCYTES RELATIVE PERCENT (BEAKER) (test code 8 % = 430) MONOCYTES RELATIVE PERCENT (BEAKER) (test code = 11 % 431) EOSINOPHILS RELATIVE PERCENT (BEAKER) (test code 0 % = 432) BASOPHILS RELATIVE PERCENT (BEAKER) (test code = 0 % 437) NEUTROPHILS ABSOLUTE COUNT (BEAKER) (test code = 7.24 K/ L 1.78-5.38 670) LYMPHOCYTES ABSOLUTE COUNT (BEAKER) (test code = 0.75 K/ L 1.32-3.57 414) MONOCYTES ABSOLUTE COUNT (BEAKER) (test code = 0.94 K/ L 0 .30-0.82 415) EOSINOPHILS ABSOLUTE COUNT (BEAKER) (test code = 0.00 K/ L 0.04-0.54 416) BASOPHILS ABSOLUTE COUNT (BEAKER) (test code = 0.01 K/ L 0 .01-0.08 417) IMMATURE GRANULOCYTES-RELATIVE PERCENT (BEAKER) 0 % 0-1 (test code = 2801) POCT-GLUCOSE [id number] 14:18:00 Test Item Value Reference Range Comments POC-GLUCOSE METER (BEAKER) 96 mg/dL 70-110 : Not ified RN/MD: TESTED AT (test code = 1538) [facility] [address] [facility], [address]: Systems Testing Laboratory Technician/ Traditional Chinese Herbalist ID = [id number] for MONE RAI POCT-GLUCOSE [id number] 12:04:00 Test Item Value Reference Range Comments POC-GLUCOSE METER (BEAKER) 132 mg/dL 70-110 : Not ified RN/MD: TESTED AT (test code = 1538) [facility] [address] [facility], [address]: Systems Testing Laboratory Technician/ Traditional Chinese Herbalist ID = [id number] for TIM MACIE MONE PLATELET AGGREGATION: FUNCTION [id number] 10:31:00 Test Item Value Reference Range Comments [id number] (BEAKER) Lourdes Nielson MD (test code = 2622) (electronic signature) PLATELET COUNT AGG (BEAKER) 189 K/CU MM 150-450 (test code = 2656) PLATELET RICH PLASMA(BEAKER) 242 k/cu mm 200-300 (test code = 2134) PLATELET FUNCTION SCREEN Normal aggregation results INTERPRETATION (BEAKER) (test with ADP. No evidence of code = 4655) platelet dysfunction or P2Y12 inhibitor effect. Platelet Function Screen results may be falsely low with platelet counts<75,000/cu mm.Systems Testing Laboratory Technician ID- [id number]-GLUCOSE [id number] 10:01:00 Test Item Value Reference Range Comments POC-GLUCOSE METER (BEAKER) 161 mg/dL 70-110 : [facility]TIS LINA AT [facility] [address] [facility] (test code = 1538) [facility], [address]: Systems Testing Laboratory Technician/Technic alli ID = [id number] for Jt TERRAZAS RAD, CHEST, 1 VIEW, NON [id number] 08:11:00Reason for exam:->s/p ACBShould this be performed at the bedside?->YesFINAL REPORT RAD, CHEST, 1 VIEW, NON DEPT INDICATION: s/p ACB COMPARISON: Prior day's exam FINDINGS: Portable frontal view of the chest. IMPRESSION: Support Lines: [place] tip overlies the pulmonary outflow tract. Cardiac valvular prosthesis. Sternotomy wires. Lungs and pleura: Diffuse interstitial opacities and trace right effusion, favored to represent interstitial edema. Superimposed infection may be excluded clinically. No pneumothorax.Heart and mediastinum: Stable contours. Stable surgical changes.Additional findings: None. Signed: Marcella Burdick VerifiedDate/Time: 05/26/2019 08:11:34 [facility] POCT-GLUCOSE [id number] 07:34:00 Test Item Value Reference Range Comments POC-GLUCOSE METER (BEAKER) 179 mg/dL 70-110 : Not ified RN/MD: TESTED AT (test code = 1538) [facility] [address] [place], [address]: Systems Testing Laboratory Technician/ Traditional Chinese Herbalist ID = [id number] for MONE RAI CALCIUM, [id number] 07:09:00 Test Item Value Reference Range Comments CALCIUM IONIZED (BEAKER) (test code = 698) 1.04 mmol/L 1.12- 1.27 PH, BLOOD (BEAKER) (test code = 1810) 7.42 THROMBOELASTOGRAPH (TEG)2019-05-26 06:52:00 Test Item Value Reference Range Comments TEG ACTIVATED CLOTTING TIME (BEAKER) (test code 5.1 minutes 4.0-7.0 = 1407) TEG FIBRINOGEN ACTIVITY (BEAKER) (test code = 75.1 degrees 61 .0-73.0 1408) TEG PLT. AGGREGATION (BEAKER) (test code = 65.8 MM 55.0- 65.0 1409) TEG FIBRINOLYSIS (BEAKER) (test code = 1410) 2.3 % 0.0 -5.0 TGH ACTIVATED CLOTTING TIME (BEAKER) (test code 4.8 minutes 4.0-7.0 = 1411) TGH FIBRINOGEN ACTIVITY (BEAKER) (test code = 76.4 degrees 61 .0-73.0 1412) TGH PLT. AGGREGATION (BEAKER) (test code = 71.7 MM 55.0- 65.0 1413) TGH FIBRINOLYSIS (BEAKER) (test code = 1414) 0.0 % 0.0 -5.0 [id number] 06:19:00 Test Item Value Reference Range Comments FIBRINOGEN LEVEL (BEAKER) (test code = 658) 305 mg/dl 225- 434 [id number] 06:19:00 Test Item Value Reference Range Comments PARTIAL THROMBOPLASTIN TIME (BEAKER) (test code 44.3 seconds 22.5-36.0 = 760) PROTHROMBIN [id number] 06:18:00 Test Item Value Reference Range Comments PROTIME (BEAKER) (test code = 759) 17.8 seconds 11.9-14.2 INR (BEAKER) (test code = 370) 1.5 <=5.9 Effective 10/12/2018: PT Reference Range ChangeNew: 11.9-14.2 Previous: 11.7- 14.7RECOMMENDED COUMADIN/WARFARIN INR THERAPY RANGESSTANDARD DOSE: 2.0-3.0 Includes: PROPHYLAXIS for venous thrombosis, systemic embolization; TREATMENT for venous thrombosis and/or pulmonary embolus.HIGH RISK: Target INR is2.5-3.5 for patients wiht mechanical heart valves.BASIC METABOLIC [id number] 06:16:00 Test Item Value Reference Range Comments SODIUM (BEAKER) (test 140 meq/L 136-145 code = 381) POTASSIUM (BEAKER) (test 4.8 meq/L 3.5-5.1 code = 379) CHLORIDE (BEAKER) (test 110 meq/L 98-107 code = 382) CO2 (BEAKER) (test code = 20 meq/L 22-29 355) BLOOD UREA NITROGEN 27 mg/dL 7-21 (BEAKER) (test code = 354) CREATININE (BEAKER) (test 2.38 mg/dL 0.57-1.25 code = 358) GLUCOSE RANDOM (BEAKER) 215 mg/dL 70-105 (test code = 652) CALCIUM (BEAKER) (test 7.5 mg/dL 8.4-10.2 code = 697) EGFR (BEAKER) (test code 27 mL/min/1.73 sq m EST IMATED GFR IS NOT = 1092) ACCURATE CREA TININE CLEARANCE IN PRE DICTING GLOMERULAR FILTR ATION RATE. ESTIMATED GFR IS NOT APPLICABLE F OR DIALYSIS PATIENT S. Systems Testing Laboratory Technician ID - MARISABEL [id number] 06:14:00 Test Item Value Reference Range Comments PHOSPHORUS (BEAKER) (test code = 604) 4.0 mg/dL 2.3-4.7 Systems Testing Laboratory Technician ID - MARISABEL [id number] 06:14:00 Test Item Value Reference Range Comments MAGNESIUM (BEAKER) (test code = 627) 2.4 mg/dL 1.6-2.6 Systems Testing Laboratory Technician ID - MARISABEL MHEPATIC FUNCTION [id number] 06:14:00 Test Item Value Reference Range Comments TOTAL PROTEIN (BEAKER) (test code = 770) 5.3 gm/dL 6.0-8.3 ALBUMIN (BEAKER) (test code = 1145) 3.4 g/dL 3.5-5.0 BILIRUBIN TOTAL (BEAKER) (test code = 377) 0.7 mg/dL 0.2-1 .2 BILIRUBIN DIRECT (BEAKER) (test code = 706) 0.4 mg/dL 0.1- 0.5 ALKALINE PHOSPHATASE (BEAKER) (test code = 346) 68 U/L 40-150 AST (SGOT) (BEAKER) (test code = 353) 20 U/L 5-34 ALT (SGPT) (BEAKER) (test code = 347) 12 U/L 6-55 Systems Testing Laboratory Technician ID - MARISABEL MPLATELET [id number] 06:00:00 Test Item Value Reference Range Comments PLATELET COUNT (BEAKER) (test code = 756) 180 K/CU MM 150-45 0 Systems Testing Laboratory Technician ID - [id number] AND [id number] 06:00:00 Test Item Value Reference Range Comments HEMOGLOBIN (BEAKER) (test code = 410) 8.5 GM/DL 13.7-17.5 HEMATOCRIT (BEAKER) (test code = 411) 25.2 % 40.1-51.0 Systems Testing Laboratory Technician ID - [id number]-GLUCOSE [id number] 05:43:00 Test Item Value Reference Range Comments POC-GLUCOSE METER (BEAKER) 199 mg/dL 70-110 : [facility] AT [facility] [address] [facility] (test code = 1538) [facility], [address]: Systems Testing Laboratory Technician/Technic alli ID = [id number] for SOURAV CARPIO OXYGEN SATURATION, [id number] 04:19:00 Test Item Value Reference Range Comments O2 SATURATION (MEASURED) (BEAKER) (test code = 1455) 50.7 % [id number] 04:10:00 Test Item Value Reference Range Comments PROTIME (BEAKER) (test code = 759) 18.2 seconds 11.9-14.2 INR (BEAKER) (test code = 370) 1.6 <=5.9 PARTIAL THROMBOPLASTIN TIME (BEAKER) (test code 44.8 seconds 22.5-36.0 = 760) Effective 10/12/2018: PT Reference Range ChangeNew: 11.9-14.2 Previous: 11.7- 14.7RECOMMENDED COUMADIN/WARFARIN INR THERAPY RANGESSTANDARD DOSE: 2.0-3.0 Includes: PROPHYLAXIS for venous thrombosis, systemic embolization; TREATMENT for venous thrombosis and/or pulmonary embolus.HIGH RISK: Target INR is2.5-3.5 for patients wiht mechanical heart valves.CBC W/PLT COUNT & AUTO [id number] 04:05:00 Test Item Value Reference Range Comments WHITE BLOOD CELL COUNT (BEAKER) (test code = 8.4 K/ L 3.5 -10.5 775) RED BLOOD CELL COUNT (BEAKER) (test code = 761) 2.84 M/ L 4.63-6.08 HEMOGLOBIN (BEAKER) (test code = 410) 8.5 GM/DL 13.7-17.5 HEMATOCRIT (BEAKER) (test code = 411) 25.6 % 40.1-51.0 MEAN CORPUSCULAR VOLUME (BEAKER) (test code = 90.1 fL 79 .0-92.2 753) MEAN CORPUSCULAR HEMOGLOBIN (BEAKER) (test code 29.9 pg 25.7-32.2 = 751) MEAN CORPUSCULAR HEMOGLOBIN CONC (BEAKER) (test 33.2 GM/DL 32.3-36.5 code = 752) RED CELL DISTRIBUTION WIDTH (BEAKER) (test code 13.9 % 11.6-14.4 = 412) PLATELET COUNT (BEAKER) (test code = 756) 188 K/CU MM 150-45 0 MEAN PLATELET VOLUME (BEAKER) (test code = 754) 10.3 fL 9.4-12.4 NUCLEATED RED BLOOD CELLS (BEAKER) (test code = 0 /100 WBC 0-0 413) NEUTROPHILS RELATIVE PERCENT (BEAKER) (test code 80 % = 429) LYMPHOCYTES RELATIVE PERCENT (BEAKER) (test code 9 % = 430) MONOCYTES RELATIVE PERCENT (BEAKER) (test code = 11 % 431) EOSINOPHILS RELATIVE PERCENT (BEAKER) (test code 0 % = 432) BASOPHILS RELATIVE PERCENT (BEAKER) (test code = 0 % 437) NEUTROPHILS ABSOLUTE COUNT (BEAKER) (test code = 6.76 K/ L 1.78-5.38 670) LYMPHOCYTES ABSOLUTE COUNT (BEAKER) (test code = 0.74 K/ L 1.32-3.57 414) MONOCYTES ABSOLUTE COUNT (BEAKER) (test code = 0.89 K/ L 0 .30-0.82 415) EOSINOPHILS ABSOLUTE COUNT (BEAKER) (test code = 0.01 K/ L 0.04-0.54 416) BASOPHILS ABSOLUTE COUNT (BEAKER) (test code = 0.02 K/ L 0 .01-0.08 417) IMMATURE GRANULOCYTES-RELATIVE PERCENT (BEAKER) 0 % 0-1 (test code = 2801) [id number] 04:00:00 Test Item Value Reference Range Comments FIBRINOGEN LEVEL (BEAKER) (test code = 658) 271 mg/dl 225- 434 BLOOD GAS, [id number] 03:52:00 Test Item Value Reference Range Comments PH ARTERIAL (BEAKER) (test code = 383) 7.42 7.35-7.45 PCO2 ARTERIAL (BEAKER) (test code = 384) 32 mmHg 35-45 PO2 ARTERIAL (BEAKER) (test code = 385) 81 mmHg 80-90 O2 SATURATION ARTERIAL (BEAKER) (test code = 96.3 % 96. 0-97.0 386) HCO3 ARTERIAL (BEAKER) (test code = 388) 20 mmol/L 21-29 BASE EXCESS ARTERIAL (BEAKER) (test code = 387) -3.6 mmol/L -2.0-3.0 PATIENT TEMPERATURE (BEAKER) (test code = 1818) 36.8 C FIO2 (BEAKER) (test code = 1819) 36.0 % POCT-GLUCOSE [id number] 02:18:00 Test Item Value Reference Range Comments POC-GLUCOSE METER (BEAKER) 215 mg/dL 70-110 : KURTIS LIAN AT [facility] [address] (test code = 1538) [facility], [address]: Systems Testing Laboratory Technician/Technic alli ID = [id number] for SOURAV CARPIO LACTIC ACID, [id number] 02:12:00 Test Item Value Reference Range Comments LACTATE BLOOD ARTERIAL (2) (BEAKER) (test code = 4.2 mmol/L 0.5-2.2 8614) Systems Testing Laboratory Technician ID - MARISABEL MHEMOGLOBIN AND [id number] 00:17:00 Test Item Value Reference Range Comments HEMOGLOBIN (BEAKER) (test code = 410) 7.2 GM/DL 13.7-17.5 HEMATOCRIT (BEAKER) (test code = 411) 22.0 % 40.1-51.0 Systems Testing Laboratory Technician ID - 6000BLOOD GAS, [id number] 00:17:00 Test Item Value Reference Range Comments PH ARTERIAL (BEAKER) (test code = 383) 7.45 7.35-7.45 PCO2 ARTERIAL (BEAKER) (test code = 384) 32 mmHg 35-45 PO2 ARTERIAL (BEAKER) (test code = 385) 85 mmHg 80-90 O2 SATURATION ARTERIAL (BEAKER) (test code = 96.9 % 96. 0-97.0 386) HCO3 ARTERIAL (BEAKER) (test code = 388) 22 mmol/L 21-29 BASE EXCESS ARTERIAL (BEAKER) (test code = 387) -1.8 mmol/L -2.0-3.0 PATIENT TEMPERATURE (BEAKER) (test code = 1818) 36.8 C FIO2 (BEAKER) (test code = 1819) 40.0 % [id number] 22:32:00 Test Item Value Reference Range Comments PARTIAL THROMBOPLASTIN TIME (BEAKER) (test code 92.6 seconds 22.5-36.0 = 760) [id number] 22:31:00 Test Item Value Reference Range Comments FIBRINOGEN LEVEL (BEAKER) (test code = 658) 251 mg/dl 225- 434 PROTHROMBIN [id number] 22:30:00 Test Item Value Reference Range Comments PROTIME (BEAKER) (test code = 759) 17.6 seconds 11.9-14.2 INR (BEAKER) (test code = 370) 1.5 <=5.9 Effective 10/12/2018: PT Reference Range ChangeNew: 11.9-14.2 Previous: 11.7- 14.7RECOMMENDED COUMADIN/WARFARIN INR THERAPY RANGESSTANDARD DOSE: 2.0-3.0 Includes: PROPHYLAXIS for venous thrombosis, systemic embolization; TREATMENT for venous thrombosis and/or pulmonary embolus.HIGH RISK: Target INR is2.5-3.5 for patients wiht mechanical heart valves.CBC (HEMOGRAM ONLY)2019-05-25 22:23:00 Test Item Value Reference Range Comments WHITE BLOOD CELL COUNT (BEAKER) (test code = 9.1 K/ L 3.5 -10.5 775) RED BLOOD CELL COUNT (BEAKER) (test code = 761) 2.68 M/ L 4.63-6.08 HEMOGLOBIN (BEAKER) (test code = 410) 8.2 GM/DL 13.7-17.5 HEMATOCRIT (BEAKER) (test code = 411) 23.9 % 40.1-51.0 MEAN CORPUSCULAR VOLUME (BEAKER) (test code = 89.2 fL 79 .0-92.2 753) MEAN CORPUSCULAR HEMOGLOBIN (BEAKER) (test code 30.6 pg 25.7-32.2 = 751) MEAN CORPUSCULAR HEMOGLOBIN CONC (BEAKER) (test 34.3 GM/DL 32.3-36.5 code = 752) RED CELL DISTRIBUTION WIDTH (BEAKER) (test code 14.2 % 11.6-14.4 = 412) PLATELET COUNT (BEAKER) (test code = 756) 212 K/CU MM 150-45 0 MEAN PLATELET VOLUME (BEAKER) (test code = 754) 10.0 fL 9.4-12.4 NUCLEATED RED BLOOD CELLS (BEAKER) (test code = 0 /100 WBC 0-0 413) LACTIC ACID, [id number] 21:52:00 Test Item Value Reference Range Comments LACTATE BLOOD ARTERIAL (2) (BEAKER) (test code = 4.2 mmol/L 0.5-2.2 2874) Systems Testing Laboratory Technician ID - MEERA EGLUCOSE-STAT [id number] 21:41:00 Test Item Value Reference Range Comments GLUCOSE RANDOM (BEAKER) (test code = 652) 197 mg/dL 70-110 HGB/HCT (H&H) - STAT [id number] 21:41:00 Test Item Value Reference Range Comments HEMOGLOBIN (BEAKER) (test code = 410) 8.7 g/dL 13.0-16.8 HEMATOCRIT (BEAKER) (test code = 411) 26.0 % 40.0-50.0 SODIUM NA-STAT [id number] 21:40:00 Test Item Value Reference Range Comments SODIUM (BEAKER) (test code = 381) 137 meq/L 135-148 POTASSIUM-STAT [id number] 21:40:00 Test Item Value Reference Range Comments POTASSIUM (BEAKER) (test code = 379) 4.5 meq/L 3.6-5.5 BLOOD GAS, [id number] 21:40:00 Test Item Value Reference Range Comments PH ARTERIAL (BEAKER) (test code = 383) 7.43 7.35-7.45 PCO2 ARTERIAL (BEAKER) (test code = 384) 34 mmHg 35-45 PO2 ARTERIAL (BEAKER) (test code = 385) 82 mmHg 80-90 O2 SATURATION ARTERIAL (BEAKER) (test code = 96.6 % 96. 0-97.0 386) HCO3 ARTERIAL (BEAKER) (test code = 388) 22 mmol/L 21-29 BASE EXCESS ARTERIAL (BEAKER) (test code = 387) -1.6 mmol/L -2.0-3.0 PATIENT TEMPERATURE (BEAKER) (test code = 1818) 36.7 C FIO2 (BEAKER) (test code = 1819) 40.0 % LACTIC ACID, [id number] 19:53:00 Test Item Value Reference Range Comments LACTATE BLOOD ARTERIAL (2) (BEAKER) (test code = 5.8 mmol/L 0.5-2.2 2874) Systems Testing Laboratory Technician ID - MEERA GAMBINOANGI GAS, [id number] 19:29:00 Test Item Value Reference Range Comments PH ARTERIAL (BEAKER) (test code = 383) 7.36 7.35-7.45 PCO2 ARTERIAL (BEAKER) (test code = 384) 31 mmHg 35-45 PO2 ARTERIAL (BEAKER) (test code = 385) 68 mmHg 80-90 O2 SATURATION ARTERIAL (BEAKER) (test code = 93.7 % 96. 0-97.0 386) HCO3 ARTERIAL (BEAKER) (test code = 388) 17 mmol/L 21-29 BASE EXCESS ARTERIAL (BEAKER) (test code = 387) -7.9 mmol/L -2.0-3.0 PATIENT TEMPERATURE (BEAKER) (test code = 1818) 36.2 C FIO2 (BEAKER) (test code = 1819) 40.0 % CALCIUM, [id number] 19:28:00 Test Item Value Reference Range Comments CALCIUM IONIZED (BEAKER) (test code = 698) 1.10 mmol/L 1.12- 1.27 PH, BLOOD (BEAKER) (test code = 1810) 7.36 RAD, CHEST, 1 VIEW, NON [id number] 19:01:00FINAL REPORT Chest, portable AP view History: Status post ACD Comparison: 05/24/2019 IMPRESSION: The tip of endotracheal tube is at the level of the clavicles. The heart is stably enlarged. Patient status post median sternotomy. Right IJ [place] catheter tip projects over the pulmonary artery. Mediastinal drains are in place. A enteric tube is present with distal tip well below the diaphragm. Bibasilar atelectasis is present. No sizable pleural effusion or pneumothorax. Signed: [facility]iel [facility] Ver[facility] Date/Time: 05/25/2019 19:01:50 Reading Location: [address] Reading Room LACTIC ACID, [id number] 18:38:00 Test Item Value Reference Range Comments LACTATE BLOOD ARTERIAL (2) (BEAKER) (test code = 2.9 mmol/L 0.5-2.2 2874) Systems Testing Laboratory Technician ID - MEERA AUBREYOD GAS, [id number] 18:05:00 Test Item Value Reference Range Comments PH ARTERIAL (BEAKER) (test code = 383) 7.35 7.35-7.45 PCO2 ARTERIAL (BEAKER) (test code = 384) 39 mmHg 35-45 PO2 ARTERIAL (BEAKER) (test code = 385) 79 mmHg 80-90 O2 SATURATION ARTERIAL (BEAKER) (test code = 95.6 % 96. 0-97.0 386) HCO3 ARTERIAL (BEAKER) (test code = 388) 21 mmol/L 21-29 BASE EXCESS ARTERIAL (BEAKER) (test code = 387) -4.3 mmol/L -2.0-3.0 PATIENT TEMPERATURE (BEAKER) (test code = 1818) 36.2 C FIO2 (BEAKER) (test code = 1819) 40.0 % CBC W/PLT COUNT & AUTO [id number] 16:55:00 Test Item Value Reference Range Comments WHITE BLOOD CELL COUNT (BEAKER) (test code = 12.5 K/ L 3.5 -10.5 775) RED BLOOD CELL COUNT (BEAKER) (test code = 761) 3.51 M/ L 4.63-6.08 HEMOGLOBIN (BEAKER) (test code = 410) 10.5 GM/DL 13.7-17.5 HEMATOCRIT (BEAKER) (test code = 411) 31.6 % 40.1-51.0 MEAN CORPUSCULAR VOLUME (BEAKER) (test code = 90.0 fL 79 .0-92.2 753) MEAN CORPUSCULAR HEMOGLOBIN (BEAKER) (test code 29.9 pg 25.7-32.2 = 751) MEAN CORPUSCULAR HEMOGLOBIN CONC (BEAKER) (test 33.2 GM/DL 32.3-36.5 code = 752) RED CELL DISTRIBUTION WIDTH (BEAKER) (test code 14.1 % 11.6-14.4 = 412) PLATELET COUNT (BEAKER) (test code = 756) 207 K/CU MM 150-45 0 MEAN PLATELET VOLUME (BEAKER) (test code = 754) 9.9 fL 9.4-12.4 NUCLEATED RED BLOOD CELLS (BEAKER) (test code = 0 /100 WBC 0-0 413) NEUTROPHILS RELATIVE PERCENT (BEAKER) (test code 84 % = 429) LYMPHOCYTES RELATIVE PERCENT (BEAKER) (test code 6 % = 430) MONOCYTES RELATIVE PERCENT (BEAKER) (test code = 10 % 431) EOSINOPHILS RELATIVE PERCENT (BEAKER) (test code 0 % = 432) BASOPHILS RELATIVE PERCENT (BEAKER) (test code = 0 % 437) NEUTROPHILS ABSOLUTE COUNT (BEAKER) (test code = 10.45 K/ L 1.78-5.38 670) LYMPHOCYTES ABSOLUTE COUNT (BEAKER) (test code = 0.73 K/ L 1.32-3.57 414) MONOCYTES ABSOLUTE COUNT (BEAKER) (test code = 1.19 K/ L 0 .30-0.82 415) EOSINOPHILS ABSOLUTE COUNT (BEAKER) (test code = 0.04 K/ L 0.04-0.54 416) BASOPHILS ABSOLUTE COUNT (BEAKER) (test code = 0.02 K/ L 0 .01-0.08 417) IMMATURE GRANULOCYTES-RELATIVE PERCENT (BEAKER) 0 % 0-1 (test code = 2801) BLOOD GAS, [id number] 16:41:00 Test Item Value Reference Range Comments PH ARTERIAL (BEAKER) (test code = 383) 7.38 7.35-7.45 PCO2 ARTERIAL (BEAKER) (test code = 384) 31 mmHg 35-45 PO2 ARTERIAL (BEAKER) (test code = 385) 107 mmHg 80-90 O2 SATURATION ARTERIAL (BEAKER) (test code = 98.1 % 96. 0-97.0 386) HCO3 ARTERIAL (BEAKER) (test code = 388) 18 mmol/L 21-29 BASE EXCESS ARTERIAL (BEAKER) (test code = 387) -6.8 mmol/L -2.0-3.0 PATIENT TEMPERATURE (BEAKER) (test code = 1818) 36.0 C FIO2 (BEAKER) (test code = 1819) 40.0 % THROMBOELASTOGRAPH (TEG)2019-05-25 15:52:00 Test Item Value Reference Range Comments TEG ACTIVATED CLOTTING TIME (BEAKER) (test code 5.4 minutes 4.0-7.0 = 1407) TEG FIBRINOGEN ACTIVITY (BEAKER) (test code = 66.6 degrees 61 .0-73.0 1408) TEG PLT. AGGREGATION (BEAKER) (test code = 56.2 MM 55.0- 65.0 1409) TEG FIBRINOLYSIS (BEAKER) (test code = 1410) 0.0 % 0.0 -5.0 TGH ACTIVATED CLOTTING TIME (BEAKER) (test code 5.8 minutes 4.0-7.0 = 1411) TGH FIBRINOGEN ACTIVITY (BEAKER) (test code = 70.3 degrees 61 .0-73.0 1412) TGH PLT. AGGREGATION (BEAKER) (test code = 65.8 MM 55.0- 65.0 1413) TGH FIBRINOLYSIS (BEAKER) (test code = 1414) 0.0 % 0.0 -5.0 [id number] 13:39:00 Test Item Value Reference Range Comments PHOSPHORUS (BEAKER) (test code = 604) 3.3 mg/dL 2.3-4.7 Systems Testing Laboratory Technician ID - [id number] 13:39:00 Test Item Value Reference Range Comments MAGNESIUM (BEAKER) (test code = 627) 1.7 mg/dL 1.6-2.6 Systems Testing Laboratory Technician ID - NTPBASIC METABOLIC [id number] 13:39:00 Test Item Value Reference Range Comments SODIUM (BEAKER) (test 136 meq/L 136-145 code = 381) POTASSIUM (BEAKER) (test 4.6 meq/L 3.5-5.1 code = 379) CHLORIDE (BEAKER) (test 108 meq/L 98-107 code = 382) CO2 (BEAKER) (test code = 20 meq/L 22-29 355) BLOOD UREA NITROGEN 25 mg/dL 7-21 (BEAKER) (test code = 354) CREATININE (BEAKER) (test 2.14 mg/dL 0.57-1.25 code = 358) GLUCOSE RANDOM (BEAKER) 168 mg/dL 70-105 (test code = 652) CALCIUM (BEAKER) (test 8.3 mg/dL 8.4-10.2 code = 697) EGFR (BEAKER) (test code 31 mL/min/1.73 sq m EST IMATED GFR IS NOT = 1092) ACCURATE CREA TININE CLEARANCE IN PRE DICTING GLOMERULAR FILTR ATION RATE. ESTIMATED GFR IS NOT APPLICABLE F OR DIALYSIS PATIENT S. Systems Testing Laboratory Technician ID - NTPLACTIC ACID, [id number] 13:30:00 Test Item Value Reference Range Comments LACTATE BLOOD ARTERIAL (2) (BEAKER) (test code = 1.2 mmol/L 0.5-2.2 2874) Systems Testing Laboratory Technician ID - [id number] 13:24:00 Test Item Value Reference Range Comments PARTIAL THROMBOPLASTIN TIME (BEAKER) (test code 61.6 seconds 22.5-36.0 = 760) CBC W/PLT COUNT & AUTO [id number] 13:23:00 Test Item Value Reference Range Comments WHITE BLOOD CELL COUNT (BEAKER) (test code = 10.2 K/ L 3.5 -10.5 775) RED BLOOD CELL COUNT (BEAKER) (test code = 761) 3.89 M/ L 4.63-6.08 HEMOGLOBIN (BEAKER) (test code = 410) 11.4 GM/DL 13.7-17.5 HEMATOCRIT (BEAKER) (test code = 411) 34.7 % 40.1-51.0 MEAN CORPUSCULAR VOLUME (BEAKER) (test code = 89.2 fL 79 .0-92.2 753) MEAN CORPUSCULAR HEMOGLOBIN (BEAKER) (test code 29.3 pg 25.7-32.2 = 751) MEAN CORPUSCULAR HEMOGLOBIN CONC (BEAKER) (test 32.9 GM/DL 32.3-36.5 code = 752) RED CELL DISTRIBUTION WIDTH (BEAKER) (test code 14.2 % 11.6-14.4 = 412) PLATELET COUNT (BEAKER) (test code = 756) 176 K/CU MM 150-45 0 MEAN PLATELET VOLUME (BEAKER) (test code = 754) 9.7 fL 9.4-12.4 NUCLEATED RED BLOOD CELLS (BEAKER) (test code = 0 /100 WBC 0-0 413) NEUTROPHILS RELATIVE PERCENT (BEAKER) (test code 83 % = 429) LYMPHOCYTES RELATIVE PERCENT (BEAKER) (test code 9 % = 430) MONOCYTES RELATIVE PERCENT (BEAKER) (test code = 7 % 431) EOSINOPHILS RELATIVE PERCENT (BEAKER) (test code 1 % = 432) BASOPHILS RELATIVE PERCENT (BEAKER) (test code = 0 % 437) NEUTROPHILS ABSOLUTE COUNT (BEAKER) (test code = 8.45 K/ L 1.78-5.38 670) LYMPHOCYTES ABSOLUTE COUNT (BEAKER) (test code = 0.94 K/ L 1.32-3.57 414) MONOCYTES ABSOLUTE COUNT (BEAKER) (test code = 0.67 K/ L 0 .30-0.82 415) EOSINOPHILS ABSOLUTE COUNT (BEAKER) (test code = 0.11 K/ L 0.04-0.54 416) BASOPHILS ABSOLUTE COUNT (BEAKER) (test code = 0.01 K/ L 0 .01-0.08 417) IMMATURE GRANULOCYTES-RELATIVE PERCENT (BEAKER) 1 % 0-1 (test code = 2801) PROTHROMBIN [id number] 13:23:00 Test Item Value Reference Range Comments PROTIME (BEAKER) (test code = 759) 18.8 seconds 11.9-14.2 INR (BEAKER) (test code = 370) 1.6 <=5.9 Effective 10/12/2018: PT Reference Range ChangeNew: 11.9-14.2 Previous: 11.7- 14.7RECOMMENDED COUMADIN/WARFARIN INR THERAPY RANGESSTANDARD DOSE: 2.0-3.0 Includes: PROPHYLAXIS for venous thrombosis, systemic embolization; TREATMENT for venous thrombosis and/or pulmonary embolus.HIGH RISK: Target INR is2.5-3.5 for patients wiht mechanical heart valves.[id number] 13:23:00 Test Item Value Reference Range Comments FIBRINOGEN LEVEL (BEAKER) (test code = 658) 286 mg/dl 225- 434 BLOOD GAS, [id number] 13:12:00 Test Item Value Reference Range Comments PH ARTERIAL (BEAKER) (test code = 383) 7.36 7.35-7.45 PCO2 ARTERIAL (BEAKER) (test code = 384) 36 mmHg 35-45 PO2 ARTERIAL (BEAKER) (test code = 385) 155 mmHg 80-90 O2 SATURATION ARTERIAL (BEAKER) (test code = 99.0 % 96. 0-97.0 386) HCO3 ARTERIAL (BEAKER) (test code = 388) 20 mmol/L 21-29 BASE EXCESS ARTERIAL (BEAKER) (test code = 387) -5.0 mmol/L -2.0-3.0 PATIENT TEMPERATURE (BEAKER) (test code = 1818) 35.9 C FIO2 (BEAKER) (test code = 1819) 60.0 % CALCIUM, [id number] 13:12:00 Test Item Value Reference Range Comments CALCIUM IONIZED (BEAKER) (test code = 698) 1.11 mmol/L 1.12- 1.27 PH, BLOOD (BEAKER) (test code = 1810) 7.34 OXYGEN SATURATION, [id number] 13:09:00 Test Item Value Reference Range Comments O2 SATURATION (MEASURED) (BEAKER) (test code = 1455) 75.1 % [id number] 12:17:00 Test Item Value Reference Range Comments ACTIVATED CLOTTING TIME 103 sec Referenc e Range: 74-137 (BEAKER) (test code = 441) maxon ds, Baseline/TESTED AT [place] [address] [id number] 12:17:00 Test Item Value Reference Range Comments ACTIVATED CLOTTING TIME 461 sec Referenc e Range: 74-137 (BEAKER) (test code = 441) secon ds, Baseline/TESTED AT [place] [address] [id number] 12:17:00 Test Item Value Reference Range Comments ACTIVATED CLOTTING TIME 411 sec Referenc e Range: 74-137 (BEAKER) (test code = 441) seckeely ds, Baseline/TESTED AT [place] [address] [id number] 12:17:00 Test Item Value Reference Range Comments ACTIVATED CLOTTING TIME 439 sec Referenc e Range: 74-137 (BEAKER) (test code = 441) secon ds, Baseline/TESTED AT [address] [address] [id number] 12:17:00 Test Item Value Reference Range Comments ACTIVATED CLOTTING TIME 373 sec Referenc e Range: 74-137 (BEAKER) (test code = 441) secon ds, Baseline/TESTED AT [address] [address] [id number] 12:17:00 Test Item Value Reference Range Comments ACTIVATED CLOTTING TIME 114 sec Referenc e Range: 74-137 (BEAKER) (test code = 441) secon ds, Baseline/TESTED AT [address] [address] CALCIUM, [id number] 12:02:00 Test Item Value Reference Range Comments CALCIUM IONIZED (BEAKER) (test code = 698) 1.10 mmol/L 1.12- 1.27 PH, BLOOD (BEAKER) (test code = 1810) 7.36 BLOOD GAS, [id number] 11:48:00 Test Item Value Reference Range Comments PH ARTERIAL (BEAKER) (test code = 383) 7.37 7.35-7.45 PCO2 ARTERIAL (BEAKER) (test code = 384) 37 mmHg 35-45 PO2 ARTERIAL (BEAKER) (test code = 385) 97 mmHg 80-90 O2 SATURATION ARTERIAL (BEAKER) (test code = 97.5 % 96. 0-97.0 386) HCO3 ARTERIAL (BEAKER) (test code = 388) 21 mmol/L 21-29 BASE EXCESS ARTERIAL (BEAKER) (test code = 387) -4.0 mmol/L -2.0-3.0 PATIENT TEMPERATURE (BEAKER) (test code = 1818) 35.9 C FIO2 (BEAKER) (test code = 1819) 57.0 % GLUCOSE-STAT [id number] 11:48:00 Test Item Value Reference Range Comments GLUCOSE RANDOM (BEAKER) (test code = 652) 165 mg/dL 70-110 HGB/HCT (H&H) - STAT [id number] 11:48:00 Test Item Value Reference Range Comments HEMOGLOBIN (BEAKER) (test code = 410) 10.7 g/dL 13.0-16.8 HEMATOCRIT (BEAKER) (test code = 411) 31.0 % 40.0-50.0 SODIUM NA-STAT [id number] 11:47:00 Test Item Value Reference Range Comments SODIUM (BEAKER) (test code = 381) 135 meq/L 135-148 POTASSIUM-STAT [id number] 11:47:00 Test Item Value Reference Range Comments POTASSIUM (BEAKER) (test code = 379) 4.3 meq/L 3.6-5.5 BLOOD GAS, [id number] 10:43:00 Test Item Value Reference Range Comments PH ARTERIAL (BEAKER) (test code = 383) 7.34 7.35-7.45 PCO2 ARTERIAL (BEAKER) (test code = 384) 48 mmHg 35-45 PO2 ARTERIAL (BEAKER) (test code = 385) 308 mmHg 80-90 O2 SATURATION ARTERIAL (BEAKER) (test code = 99.7 % 96. 0-97.0 386) HCO3 ARTERIAL (BEAKER) (test code = 388) 26 mmol/L 21-29 BASE EXCESS ARTERIAL (BEAKER) (test code = 387) -0.9 mmol/L -2.0-3.0 PATIENT TEMPERATURE (BEAKER) (test code = 1818) 34.2 C FIO2 (BEAKER) (test code = 1819) 70.0 % SODIUM NA-STAT [id number] 10:43:00 Test Item Value Reference Range Comments SODIUM (BEAKER) (test code = 381) 134 meq/L 135-148 GLUCOSE-STAT [id number] 10:43:00 Test Item Value Reference Range Comments GLUCOSE RANDOM (BEAKER) (test code = 652) 162 mg/dL 70-110 HGB/HCT (H&H) - STAT [id number] 10:43:00 Test Item Value Reference Range Comments HEMOGLOBIN (BEAKER) (test code = 410) 10.1 g/dL 13.0-16.8 HEMATOCRIT (BEAKER) (test code = 411) 30.0 % 40.0-50.0 POTASSIUM-STAT [id number] 10:42:00 Test Item Value Reference Range Comments POTASSIUM (BEAKER) (test code = 379) 5.0 meq/L 3.6-5.5 BLOOD GAS, [id number] 10:22:00 Test Item Value Reference Range Comments PH ARTERIAL (BEAKER) (test code = 383) 7.36 7.35-7.45 PCO2 ARTERIAL (BEAKER) (test code = 384) 34 mmHg 35-45 PO2 ARTERIAL (BEAKER) (test code = 385) 405 mmHg 80-90 O2 SATURATION ARTERIAL (BEAKER) (test code = 99.8 % 96. 0-97.0 386) HCO3 ARTERIAL (BEAKER) (test code = 388) 20 mmol/L 21-29 BASE EXCESS ARTERIAL (BEAKER) (test code = 387) -6.2 mmol/L -2.0-3.0 PATIENT TEMPERATURE (BEAKER) (test code = 1818) 32.6 C FIO2 (BEAKER) (test code = 1819) 80.0 % SODIUM NA-STAT [id number] 10:22:00 Test Item Value Reference Range Comments SODIUM (BEAKER) (test code = 381) 126 meq/L 135-148 POTASSIUM-STAT [id number] 10:22:00 Test Item Value Reference Range Comments POTASSIUM (BEAKER) (test code = 379) 5.7 meq/L 3.6-5.5 GLUCOSE-STAT [id number] 10:22:00 Test Item Value Reference Range Comments GLUCOSE RANDOM (BEAKER) (test code = 652) 191 mg/dL 70-110 HGB/HCT (H&H) - STAT [id number] 10:22:00 Test Item Value Reference Range Comments HEMOGLOBIN (BEAKER) (test code = 410) 10.1 g/dL 13.0-16.8 HEMATOCRIT (BEAKER) (test code = 411) 30.0 % 40.0-50.0 GLUCOSE-STAT [id number] 09:50:00 Test Item Value Reference Range Comments GLUCOSE RANDOM (BEAKER) (test code = 652) 139 mg/dL 70-110 SODIUM NA-STAT [id number] 09:50:00 Test Item Value Reference Range Comments SODIUM (BEAKER) (test code = 381) 131 meq/L 135-148 HGB/HCT (H&H) - STAT [id number] 09:50:00 Test Item Value Reference Range Comments HEMOGLOBIN (BEAKER) (test code = 410) 13.3 g/dL 13.0-16.8 HEMATOCRIT (BEAKER) (test code = 411) 39.0 % 40.0-50.0 CALCIUM, [id number] 09:49:00 Test Item Value Reference Range Comments CALCIUM IONIZED (BEAKER) (test code = 698) 1.18 mmol/L 1.12- 1.27 PH, BLOOD (BEAKER) (test code = 1810) 7.32 BLOOD GAS, [id number] 09:49:00 Test Item Value Reference Range Comments PH ARTERIAL (BEAKER) (test code = 383) 7.34 7.35-7.45 PCO2 ARTERIAL (BEAKER) (test code = 384) 39 mmHg 35-45 PO2 ARTERIAL (BEAKER) (test code = 385) 221 mmHg 80-90 O2 SATURATION ARTERIAL (BEAKER) (test code = 99.4 % 96. 0-97.0 386) HCO3 ARTERIAL (BEAKER) (test code = 388) 21 mmol/L 21-29 BASE EXCESS ARTERIAL (BEAKER) (test code = 387) -4.9 mmol/L -2.0-3.0 PATIENT TEMPERATURE (BEAKER) (test code = 1818) 35.5 C FIO2 (BEAKER) (test code = 1819) 51.0 % POTASSIUM-STAT [id number] 09:48:00 Test Item Value Reference Range Comments POTASSIUM (BEAKER) (test code = 379) 4.9 meq/L 3.6-5.5 PLATELET AGGREGATION: FUNCTION [id number] 09:44:00 Test Item Value Reference Range Comments [id number] (BEAKER) Ashlie Shoemaker MD (test code = 2622) (electronic signature) PLATELET COUNT AGG (BEAKER) 252 K/CU MM 150-450 (test code = 2656) PLATELET RICH PLASMA(BEAKER) 255 k/cu mm 200-300 (test code = 2134) PLATELET FUNCTION SCREEN Decreased aggregation with INTERPRETATION (BEAKER) (test ADP which indicates platelet code = 1608) dysfunction that may be due to medication effect, uremia, or other platelet function disorders. Clinical correlation is required. Platelet Function Screen results may be falsely low with platelet counts<75,000/cu mm.BLOOD GAS, [id number] 08:35:00 Test Item Value Reference Range Comments PH ARTERIAL (BEAKER) (test code = 383) 7.35 7.35-7.45 PCO2 ARTERIAL (BEAKER) (test code = 384) 42 mmHg 35-45 PO2 ARTERIAL (BEAKER) (test code = 385) 249 mmHg 80-90 O2 SATURATION ARTERIAL (BEAKER) (test code = 99.5 % 96. 0-97.0 386) HCO3 ARTERIAL (BEAKER) (test code = 388) 23 mmol/L 21-29 BASE EXCESS ARTERIAL (BEAKER) (test code = 387) -3.1 mmol/L -2.0-3.0 PATIENT TEMPERATURE (BEAKER) (test code = 1818) 36.2 C FIO2 (BEAKER) (test code = 1819) 100.0 % SODIUM NA-STAT [id number] 08:35:00 Test Item Value Reference Range Comments SODIUM (BEAKER) (test code = 381) 131 meq/L 135-148 GLUCOSE-STAT [id number] 08:35:00 Test Item Value Reference Range Comments GLUCOSE RANDOM (BEAKER) (test code = 652) 112 mg/dL 70-110 CALCIUM, [id number] 08:34:00 Test Item Value Reference Range Comments CALCIUM IONIZED (BEAKER) (test code = 698) 1.19 mmol/L 1.12- 1.27 PH, BLOOD (BEAKER) (test code = 1810) 7.33 POTASSIUM-STAT [id number] 08:33:00 Test Item Value Reference Range Comments POTASSIUM (BEAKER) (test code = 379) 4.2 meq/L 3.6-5.5 HGB/HCT (H&H) - STAT [id number] 08:33:00 Test Item Value Reference Range Comments HEMOGLOBIN (BEAKER) (test code = 410) 13.5 g/dL 13.0-16.8 HEMATOCRIT (BEAKER) (test code = 411) 40.0 % 40.0-50.0 CALCIUM, [id number] 05:20:00 Test Item Value Reference Range Comments CALCIUM IONIZED (BEAKER) (test code = 698) 1.20 mmol/L 1.12- 1.27 PH, BLOOD (BEAKER) (test code = 1810) 7.44 BASIC METABOLIC [id number] 05:16:00 Test Item Value Reference Range Comments SODIUM (BEAKER) (test 132 meq/L 136-145 code = 381) POTASSIUM (BEAKER) (test 4.3 meq/L 3.5-5.1 code = 379) CHLORIDE (BEAKER) (test 105 meq/L 98-107 code = 382) CO2 (BEAKER) (test code = 20 meq/L 22-29 355) BLOOD UREA NITROGEN 29 mg/dL 7-21 (BEAKER) (test code = 354) CREATININE (BEAKER) (test 2.41 mg/dL 0.57-1.25 code = 358) GLUCOSE RANDOM (BEAKER) 103 mg/dL 70-105 (test code = 652) CALCIUM (BEAKER) (test 9.1 mg/dL 8.4-10.2 code = 697) EGFR (BEAKER) (test code 27 mL/min/1.73 sq m EST IMATED GFR IS NOT = 1092) ACCURATE CREA TININE CLEARANCE IN PRE DICTING GLOMERULAR FILTR ATION RATE. ESTIMATED GFR IS NOT APPLICABLE F OR DIALYSIS PATIENT S. URIC [id number] 05:15:00 Test Item Value Reference Range Comments URIC ACID (BEAKER) (test code = 773) 8.3 mg/dL 2.6-7.2 [id number] 05:15:00 Test Item Value Reference Range Comments MAGNESIUM (BEAKER) (test code = 627) 1.9 mg/dL 1.6-2.6 [id number] 05:15:00 Test Item Value Reference Range Comments PHOSPHORUS (BEAKER) (test code = 604) 3.7 mg/dL 2.3-4.7 PTH, [id number] 05:06:00 Test Item Value Reference Range Comments PARATHYROID HORMONE INTACT (BEAKER) (test code = 64.0 pg/mL 8.5-72.5 577) CBC W/PLT COUNT & AUTO [id number] 04:46:00 Test Item Value Reference Range Comments WHITE BLOOD CELL COUNT (BEAKER) (test code = 5.4 K/ L 3.5 -10.5 775) RED BLOOD CELL COUNT (BEAKER) (test code = 761) 4.43 M/ L 4.63-6.08 HEMOGLOBIN (BEAKER) (test code = 410) 13.0 GM/DL 13.7-17.5 HEMATOCRIT (BEAKER) (test code = 411) 39.3 % 40.1-51.0 MEAN CORPUSCULAR VOLUME (BEAKER) (test code = 88.7 fL 79 .0-92.2 753) MEAN CORPUSCULAR HEMOGLOBIN (BEAKER) (test code 29.3 pg 25.7-32.2 = 751) MEAN CORPUSCULAR HEMOGLOBIN CONC (BEAKER) (test 33.1 GM/DL 32.3-36.5 code = 752) RED CELL DISTRIBUTION WIDTH (BEAKER) (test code 13.9 % 11.6-14.4 = 412) PLATELET COUNT (BEAKER) (test code = 756) 247 K/CU MM 150-45 0 MEAN PLATELET VOLUME (BEAKER) (test code = 754) 9.5 fL 9.4-12.4 NUCLEATED RED BLOOD CELLS (BEAKER) (test code = 0 /100 WBC 0-0 413) NEUTROPHILS RELATIVE PERCENT (BEAKER) (test code 59 % = 429) LYMPHOCYTES RELATIVE PERCENT (BEAKER) (test code 24 % = 430) MONOCYTES RELATIVE PERCENT (BEAKER) (test code = 11 % 431) EOSINOPHILS RELATIVE PERCENT (BEAKER) (test code 5 % = 432) BASOPHILS RELATIVE PERCENT (BEAKER) (test code = 1 % 437) NEUTROPHILS ABSOLUTE COUNT (BEAKER) (test code = 3.21 K/ L 1.78-5.38 670) LYMPHOCYTES ABSOLUTE COUNT (BEAKER) (test code = 1.30 K/ L 1.32-3.57 414) MONOCYTES ABSOLUTE COUNT (BEAKER) (test code = 0.59 K/ L 0 .30-0.82 415) EOSINOPHILS ABSOLUTE COUNT (BEAKER) (test code = 0.27 K/ L 0.04-0.54 416) BASOPHILS ABSOLUTE COUNT (BEAKER) (test code = 0.03 K/ L 0 .01-0.08 417) IMMATURE GRANULOCYTES-RELATIVE PERCENT (BEAKER) 0 % 0-1 (test code = 2801) [id number] 21:48:00 Test Item Value Reference Range Comments PARTIAL THROMBOPLASTIN TIME (BEAKER) (test code 63.1 seconds 22.5-36.0 = 760) PROTHROMBIN TIME/[id number] 21:47:00 Test Item Value Reference Range Comments PROTIME (BEAKER) (test code = 759) 15.2 seconds 11.9-14.2 INR (BEAKER) (test code = 370) 1.2 <=5.9 Effective 10/12/2018: PT Reference Range ChangeNew: 11.9-14.2 Previous: 11.7- 14.7RECOMMENDED COUMADIN/WARFARIN INR THERAPY RANGESSTANDARD DOSE: 2.0-3.0 Includes: PROPHYLAXIS for venous thrombosis, systemic embolization; TREATMENT for venous thrombosis and/or pulmonary embolus.HIGH RISK: Target INR is2.5-3.5 for patients wiht mechanical heart valves.CREATININE, RANDOM [id number] 19:14:00 Test Item Value Reference Range Comments CREATININE URINE (BEAKER) (test code = 375) 119.9 mg/dL Reference Range: No NormalsPROTEIN, RANDOM [id number] 19:14:00 Test Item Value Reference Range Comments PROTEIN, URINE (BEAKER) (test code = 1569) 37 mg/dL 0-14 PLATELET AGGREGATION: FUNCTION [id number] 19:04:00 Test Item Value Reference Range Comments [id number] ([facility]) Ashlie Shoemaker MD (test code = 2622) (electronic signature) PLATELET COUNT AGG (BEAKER) 251 K/CU MM 150-450 (test code = 2656) PLATELET RICH PLASMA(BEAKER) 243 k/cu mm 200-300 (test code = 2134) PLATELET FUNCTION SCREEN Decreased aggregation with INTERPRETATION (BEAKER) (test ADP which indicates platelet code = 4655) dysfunction that may be due to medication effect, uremia, or other platelet function disorders. Clinical correlation is required. Platelet Function Screen results may be falsely low with platelet counts<75,000/cu mm.PLATELET AGGREGATION: FUNCTION [id number] 19:03:00 Test Item Value Reference Range Comments [id number] ([facility]) Ashlie Shoemaker MD (test code = 2622) (electronic signature) PLATELET COUNT AGG (BEAKER) 283 K/CU MM 150-450 (test code = 2656) PLATELET RICH PLASMA(BEAKER) 294 k/cu mm 200-300 (test code = 2134) PLATELET FUNCTION SCREEN Decreased aggregation with INTERPRETATION (BEAKER) (test ADP which indicates platelet code = 4655) dysfunction that may be due to medication effect, uremia, or other platelet function disorders. Clinical correlation is required. Platelet Function Screen results may be falsely low with platelet counts<75,000/cu mm.U/S, RENAL WITH [id number] 17:06:00Reason for exam:->ckd with doppler-attn size and echogenicity Should this be performed at the bedside?->NoFINAL REPORT Renal ultrasound and Duplex Doppler ultrasound [...] of the right kidney. Signed: Lilliana Martinez MDReport Verified Date/Time: 05/24/2019 17:06:43 Reading Location: [address] Radiology Reading Room [id number] 15:00:00 Test Item Value Reference Range Comments PARTIAL THROMBOPLASTIN TIME (BEAKER) (test code 66.3 seconds 22.5-36.0 = 760) RAD, CHEST, 1 VIEW, NON [id number] 10:47:00Reason for exam:->sobShould this be performed at the bedside?->YesFINAL REPORT INDICATION: sob COMPARISON: September 01, 2003 TECHNIQUE: Single frontal view of the chest. FINDINGS: Lungs and pleura: Clear lungs. No effusion.Heart and mediastinum: Normal heart size. Unremarkable mediastinal contours.Osseous structures: No acute abnormality.Other: None. IMPRESSION: No acute intrathoracic abnormality. Signed: Marcella Burdick Verified Date/Time: 05/24/2019 10:47:42 [facility] C METABOLIC [id number] 07:45:00 Test Item Value Reference Range Comments SODIUM (BEAKER) (test 134 meq/L 136-145 code = 381) POTASSIUM (BEAKER) (test 4.9 meq/L 3.5-5.1 code = 379) CHLORIDE (BEAKER) (test 105 meq/L 98-107 code = 382) CO2 (BEAKER) (test code = 22 meq/L 22-29 355) BLOOD UREA NITROGEN 28 mg/dL 7-21 (BEAKER) (test code = 354) CREATININE (BEAKER) (test 2.34 mg/dL 0.57-1.25 code = 358) GLUCOSE RANDOM (BEAKER) 100 mg/dL 70-105 (test code = 652) CALCIUM (BEAKER) (test 9.3 mg/dL 8.4-10.2 code = 697) EGFR (BEAKER) (test code 28 mL/min/1.73 sq m EST IMATED GFR IS NOT = 1092) ACCURATE CREA TININE CLEARANCE IN PRE DICTING GLOMERULAR FILTR ATION RATE. ESTIMATED GFR IS NOT APPLICABLE F OR DIALYSIS PATIENT S. HEPATIC FUNCTION [id number] 07:06:00 Test Item Value Reference Range Comments TOTAL PROTEIN (BEAKER) (test code = 770) 7.2 gm/dL 6.0-8.3 ALBUMIN (BEAKER) (test code = 1145) 3.8 g/dL 3.5-5.0 BILIRUBIN TOTAL (BEAKER) (test code = 377) 0.7 mg/dL 0.2-1 .2 BILIRUBIN DIRECT (BEAKER) (test code = 706) 0.4 mg/dL 0.1- 0.5 ALKALINE PHOSPHATASE (BEAKER) (test code = 346) 16 U/L 40-150 AST (SGOT) (BEAKER) (test code = 353) 18 U/L 5-34 ALT (SGPT) (BEAKER) (test code = 347) 16 U/L 6-55 [id number] 07:01:00 Test Item Value Reference Range Comments PHOSPHORUS (BEAKER) (test code = 604) 3.9 mg/dL 2.3-4.7 [id number] 07:01:00 Test Item Value Reference Range Comments MAGNESIUM (BEAKER) (test code = 627) 1.8 mg/dL 1.6-2.6 LACTIC ACID, [id number] 06:33:00 Test Item Value Reference Range Comments LACTATE BLOOD ARTERIAL (2) (BEAKER) (test code = 1.2 mmol/L 0.5-2.2 2874) [id number] 06:29:00 Test Item Value Reference Range Comments PARTIAL THROMBOPLASTIN TIME (BEAKER) (test code 52.7 seconds 22.5-36.0 = 760) CBC W/PLT COUNT & AUTO [id number] 06:24:00 Test Item Value Reference Range Comments WHITE BLOOD CELL COUNT (BEAKER) (test code = 6.0 K/ L 3.5 -10.5 775) RED BLOOD CELL COUNT (BEAKER) (test code = 761) 4.96 M/ L 4.63-6.08 HEMOGLOBIN (BEAKER) (test code = 410) 14.8 GM/DL 13.7-17.5 HEMATOCRIT (BEAKER) (test code = 411) 44.7 % 40.1-51.0 MEAN CORPUSCULAR VOLUME (BEAKER) (test code = 90.1 fL 79 .0-92.2 753) MEAN CORPUSCULAR HEMOGLOBIN (BEAKER) (test code 29.8 pg 25.7-32.2 = 751) MEAN CORPUSCULAR HEMOGLOBIN CONC (BEAKER) (test 33.1 GM/DL 32.3-36.5 code = 752) RED CELL DISTRIBUTION WIDTH (BEAKER) (test code 13.9 % 11.6-14.4 = 412) PLATELET COUNT (BEAKER) (test code = 756) 248 K/CU MM 150-45 0 MEAN PLATELET VOLUME (BEAKER) (test code = 754) 10.0 fL 9.4-12.4 NUCLEATED RED BLOOD CELLS (BEAKER) (test code = 0 /100 WBC 0-0 413) NEUTROPHILS RELATIVE PERCENT (BEAKER) (test code 59 % = 429) LYMPHOCYTES RELATIVE PERCENT (BEAKER) (test code 25 % = 430) MONOCYTES RELATIVE PERCENT (BEAKER) (test code = 11 % 431) EOSINOPHILS RELATIVE PERCENT (BEAKER) (test code 4 % = 432) BASOPHILS RELATIVE PERCENT (BEAKER) (test code = 1 % 437) NEUTROPHILS ABSOLUTE COUNT (BEAKER) (test code = 3.55 K/ L 1.78-5.38 670) LYMPHOCYTES ABSOLUTE COUNT (BEAKER) (test code = 1.52 K/ L 1.32-3.57 414) MONOCYTES ABSOLUTE COUNT (BEAKER) (test code = 0.63 K/ L 0 .30-0.82 415) EOSINOPHILS ABSOLUTE COUNT (BEAKER) (test code = 0.23 K/ L 0.04-0.54 416) BASOPHILS ABSOLUTE COUNT (BEAKER) (test code = 0.04 K/ L 0 .01-0.08 417) IMMATURE GRANULOCYTES-RELATIVE PERCENT (BEAKER) 0 % 0-1 (test code = 2801) CALCIUM, [id number] 06:17:00 Test Item Value Reference Range Comments CALCIUM IONIZED (BEAKER) (test code = 698) 1.23 mmol/L 1.12- 1.27 PH, BLOOD (BEAKER) (test code = 1810) 7.40 [id number] 00:32:00 Test Item Value Reference Range Comments PARTIAL THROMBOPLASTIN TIME (BEAKER) (test code 42.1 seconds 22.5-36.0 = 760) HEMOGLOBIN [id number] 17:23:00 Test Item Value Reference Range Comments HEMOGLOBIN A1C (BEAKER) (test code = 368) 5.7 % 4.3-6. 1 THROMBOELASTOGRAPH (TEG)2019-05-23 16:08:00 Test Item Value Reference Range Comments TEG ACTIVATED CLOTTING TIME (BEAKER) (test code 3.9 minutes 4.0-7.0 = 1407) TEG FIBRINOGEN ACTIVITY (BEAKER) (test code = 71.9 degrees 61 .0-73.0 1408) TEG PLT. AGGREGATION (BEAKER) (test code = 69.9 MM 55.0- 65.0 1409) TEG FIBRINOLYSIS (BEAKER) (test code = 1410) 0.0 % 0.0 -5.0 TGH ACTIVATED CLOTTING TIME (BEAKER) (test code 4.3 minutes 4.0-7.0 = 1411) TGH FIBRINOGEN ACTIVITY (BEAKER) (test code = 72.2 degrees 61 .0-73.0 1412) TGH PLT. AGGREGATION (BEAKER) (test code = 73.4 MM 55.0- 65.0 1413) TGH FIBRINOLYSIS (BEAKER) (test code = 1414) 1.7 % 0.0 -5.0 TSH/FREE T4 IF [id number] 15:55:00 Test Item Value Reference Range Comments THYROID STIMULATING HORMONE (BEAKER) (test code 1.69 uIU/mL 0.35-4.94 = 772) B-TYPE NATRIURETIC FACTOR (BNP)2019-05-23 15:41:00 Test Item Value Reference Range Comments B-TYPE NATRIURETIC PEPTIDE (BEAKER) (test code = 1951 pg/mL 0-100 700) [id number] 15:34:00 Test Item Value Reference Range Comments PHOSPHORUS (BEAKER) (test code = 604) 3.4 mg/dL 2.3-4.7 [id number] 15:34:00 Test Item Value Reference Range Comments MAGNESIUM (BEAKER) (test code = 627) 1.9 mg/dL 1.6-2.6 BASIC METABOLIC [id number] 15:34:00 Test Item Value Reference Range Comments SODIUM (BEAKER) (test 133 meq/L 136-145 code = 381) POTASSIUM (BEAKER) (test 4.5 meq/L 3.5-5.1 code = 379) CHLORIDE (BEAKER) (test 104 meq/L 98-107 code = 382) CO2 (BEAKER) (test code = 18 meq/L 22-29 355) BLOOD UREA NITROGEN 21 mg/dL 7-21 (BEAKER) (test code = 354) CREATININE (BEAKER) (test 2.09 mg/dL 0.57-1.25 code = 358) GLUCOSE RANDOM (BEAKER) 88 mg/dL 70-105 (test code = 652) CALCIUM (BEAKER) (test 9.5 mg/dL 8.4-10.2 code = 697) EGFR (BEAKER) (test code 31 mL/min/1.73 sq m EST IMATED GFR IS NOT = 1092) ACCURATE CREA TININE CLEARANCE IN PRE DICTING GLOMERULAR FILTR ATION RATE. ESTIMATED GFR IS NOT APPLICABLE F OR DIALYSIS PATIENT S. HEPATIC FUNCTION [id number] 15:34:00 Test Item Value Reference Range Comments TOTAL PROTEIN (BEAKER) (test code = 770) 7.2 gm/dL 6.0-8.3 ALBUMIN (BEAKER) (test code = 1145) 3.8 g/dL 3.5-5.0 BILIRUBIN TOTAL (BEAKER) (test code = 377) 0.9 mg/dL 0.2-1 .2 BILIRUBIN DIRECT (BEAKER) (test code = 706) 0.5 mg/dL 0.1- 0.5 ALKALINE PHOSPHATASE (BEAKER) (test code = 346) 133 U/L 40-150 AST (SGOT) (BEAKER) (test code = 353) 18 U/L 5-34 ALT (SGPT) (BEAKER) (test code = 347) 16 U/L 6-55 [id number] 15:20:00 Test Item Value Reference Range Comments PARTIAL THROMBOPLASTIN TIME (BEAKER) (test code 33.3 seconds 22.5-36.0 = 760) PROTHROMBIN [id number] 15:19:00 Test Item Value Reference Range Comments PROTIME (BEAKER) (test code = 759) 14.8 seconds 11.9-14.2 INR (BEAKER) (test code = 370) 1.2 <=5.9 Effective 10/12/2018: PT Reference Range ChangeNew: 11.9-14.2 Previous: 11.7- 14.7RECOMMENDED COUMADIN/WARFARIN INR THERAPY RANGESSTANDARD DOSE: 2.0-3.0 Includes: PROPHYLAXIS for venous thrombosis, systemic embolization; TREATMENT for venous thrombosis and/or pulmonary embolus.HIGH RISK: Target INR is2.5-3.5 for patients wiht mechanical heart valves.LACTIC ACID, [id number] 15:19:00 Test Item Value Reference Range Comments LACTATE BLOOD ARTERIAL (2) 0.9 mmol/L 0.5-2.2 Speci men slightly hemolyzed (BEAKER) (test code = 2874) [id number] 15:19:00 Test Item Value Reference Range Comments FIBRINOGEN LEVEL (BEAKER) (test code = 658) 463 mg/dl 225- 434 PLATELET [id number] 15:06:00 Test Item Value Reference Range Comments PLATELET COUNT (BEAKER) (test code = 756) 281 K/CU MM 150-45 0 CBC W/PLT COUNT & AUTO [id number] 15:06:00 Test Item Value Reference Range Comments WHITE BLOOD CELL COUNT (BEAKER) (test code = 5.4 K/ L 3.5 -10.5 775) RED BLOOD CELL COUNT (BEAKER) (test code = 761) 4.82 M/ L 4.63-6.08 HEMOGLOBIN (BEAKER) (test code = 410) 14.3 GM/DL 13.7-17.5 HEMATOCRIT (BEAKER) (test code = 411) 42.6 % 40.1-51.0 MEAN CORPUSCULAR VOLUME (BEAKER) (test code = 88.4 fL 79 .0-92.2 753) MEAN CORPUSCULAR HEMOGLOBIN (BEAKER) (test code 29.7 pg 25.7-32.2 = 751) MEAN CORPUSCULAR HEMOGLOBIN CONC (BEAKER) (test 33.6 GM/DL 32.3-36.5 code = 752) RED CELL DISTRIBUTION WIDTH (BEAKER) (test code 14.0 % 11.6-14.4 = 412) PLATELET COUNT (BEAKER) (test code = 756) 281 K/CU MM 150-45 0 MEAN PLATELET VOLUME (BEAKER) (test code = 754) 9.8 fL 9.4-12.4 NUCLEATED RED BLOOD CELLS (BEAKER) (test code = 0 /100 WBC 0-0 413) NEUTROPHILS RELATIVE PERCENT (BEAKER) (test code 67 % = 429) LYMPHOCYTES RELATIVE PERCENT (BEAKER) (test code 20 % = 430) MONOCYTES RELATIVE PERCENT (BEAKER) (test code = 10 % 431) EOSINOPHILS RELATIVE PERCENT (BEAKER) (test code 2 % = 432) BASOPHILS RELATIVE PERCENT (BEAKER) (test code = 0 % 437) NEUTROPHILS ABSOLUTE COUNT (BEAKER) (test code = 3.63 K/ L 1.78-5.38 670) LYMPHOCYTES ABSOLUTE COUNT (BEAKER) (test code = 1.07 K/ L 1.32-3.57 414) MONOCYTES ABSOLUTE COUNT (BEAKER) (test code = 0.56 K/ L 0 .30-0.82 415) EOSINOPHILS ABSOLUTE COUNT (BEAKER) (test code = 0.13 K/ L 0.04-0.54 416) BASOPHILS ABSOLUTE COUNT (BEAKER) (test code = 0.02 K/ L 0 .01-0.08 417) IMMATURE GRANULOCYTES-RELATIVE PERCENT (BEAKER) 0 % 0-1 (test code = 2801) CALCIUM, [id number] 14:58:00 Test Item Value Reference Range Comments CALCIUM IONIZED (BEAKER) (test code = 698) 1.23 mmol/L 1.12- 1.27 PH, BLOOD (BEAKER) (test code = 1810) 7.42 CBC (HEMOGRAM ONLY)2019-05-14 04:11:00 Test Item Value Reference Range Comments WHITE BLOOD CELL COUNT (BEAKER) (test code = 5.4 K/ L 3.5 -10.5 775) RED BLOOD CELL COUNT (BEAKER) (test code = 761) 4.72 M/ L 4.63-6.08 HEMOGLOBIN (BEAKER) (test code = 410) 13.9 GM/DL 13.7-17.5 HEMATOCRIT (BEAKER) (test code = 411) 41.7 % 40.1-51.0 MEAN CORPUSCULAR VOLUME (BEAKER) (test code = 88.3 fL 79 .0-92.2 753) MEAN CORPUSCULAR HEMOGLOBIN (BEAKER) (test code 29.4 pg 25.7-32.2 = 751) MEAN CORPUSCULAR HEMOGLOBIN CONC (BEAKER) (test 33.3 GM/DL 32.3-36.5 code = 752) RED CELL DISTRIBUTION WIDTH (BEAKER) (test code 13.7 % 11.6-14.4 = 412) PLATELET COUNT (BEAKER) (test code = 756) 252 K/CU MM 150-45 0 MEAN PLATELET VOLUME (BEAKER) (test code = 754) 9.9 fL 9.4-12.4 NUCLEATED RED BLOOD CELLS (BEAKER) (test code = 0 /100 WBC 0-0 413) [id number] 06:10:00 Test Item Value Reference Range Comments MAGNESIUM (BEAKER) (test code = 627) 2.0 mg/dL 1.6-2.6 BASIC METABOLIC [id number] 06:10:00 Test Item Value Reference Range Comments SODIUM (BEAKER) (test 134 meq/L 136-145 code = 381) POTASSIUM (BEAKER) (test 4.4 meq/L 3.5-5.1 code = 379) CHLORIDE (BEAKER) (test 107 meq/L 98-107 code = 382) CO2 (BEAKER) (test code = 19 meq/L 22-29 355) BLOOD UREA NITROGEN 27 mg/dL 7-21 (BEAKER) (test code = 354) CREATININE (BEAKER) (test 1.94 mg/dL 0.57-1.25 code = 358) GLUCOSE RANDOM (BEAKER) 94 mg/dL 70-105 (test code = 652) CALCIUM (BEAKER) (test 9.2 mg/dL 8.4-10.2 code = 697) EGFR (BEAKER) (test code 34 mL/min/1.73 sq m EST IMATED GFR IS NOT = 1092) ACCURATE CREA TININE CLEARANCE IN PRE DICTING GLOMERULAR FILTR ATION RATE. ESTIMATED GFR IS NOT APPLICABLE F OR DIALYSIS PATIENT S. CBC (HEMOGRAM ONLY)2019-05-13 05:22:00 Test Item Value Reference Range Comments WHITE BLOOD CELL COUNT (BEAKER) (test code = 5.2 K/ L 3.5 -10.5 775) RED BLOOD CELL COUNT (BEAKER) (test code = 761) 4.72 M/ L 4.63-6.08 HEMOGLOBIN (BEAKER) (test code = 410) 13.7 GM/DL 13.7-17.5 HEMATOCRIT (BEAKER) (test code = 411) 41.7 % 40.1-51.0 MEAN CORPUSCULAR VOLUME (BEAKER) (test code = 88.3 fL 79 .0-92.2 753) MEAN CORPUSCULAR HEMOGLOBIN (BEAKER) (test code 29.0 pg 25.7-32.2 = 751) MEAN CORPUSCULAR HEMOGLOBIN CONC (BEAKER) (test 32.9 GM/DL 32.3-36.5 code = 752) RED CELL DISTRIBUTION WIDTH (BEAKER) (test code 13.7 % 11.6-14.4 = 412) PLATELET COUNT (BEAKER) (test code = 756) 239 K/CU MM 150-45 0 MEAN PLATELET VOLUME (BEAKER) (test code = 754) 9.7 fL 9.4-12.4 NUCLEATED RED BLOOD CELLS (BEAKER) (test code = 0 /100 WBC 0-0 413) [id number] 12:42:00 Test Item Value Reference Range Comments PARTIAL THROMBOPLASTIN TIME (BEAKER) (test code 82.0 seconds 22.5-36.0 = 760) [id number] 05:57:00 Test Item Value Reference Range Comments MAGNESIUM (BEAKER) (test code = 627) 2.2 mg/dL 1.6-2.6 BASIC METABOLIC [id number] 05:57:00 Test Item Value Reference Range Comments SODIUM (BEAKER) (test 136 meq/L 136-145 code = 381) POTASSIUM (BEAKER) (test 4.4 meq/L 3.5-5.1 code = 379) CHLORIDE (BEAKER) (test 106 meq/L 98-107 code = 382) CO2 (BEAKER) (test code = 20 meq/L 22-29 355) BLOOD UREA NITROGEN 30 mg/dL 7-21 (BEAKER) (test code = 354) CREATININE (BEAKER) (test 2.13 mg/dL 0.57-1.25 code = 358) GLUCOSE RANDOM (BEAKER) 100 mg/dL 70-105 (test code = 652) CALCIUM (BEAKER) (test 8.9 mg/dL 8.4-10.2 code = 697) EGFR (BEAKER) (test code 31 mL/min/1.73 sq m EST IMATED GFR IS NOT = 1092) ACCURATE CREA TININE CLEARANCE IN PRE DICTING GLOMERULAR FILTR ATION RATE. ESTIMATED GFR IS NOT APPLICABLE F OR DIALYSIS PATIENT S. [id number] 05:48:00 Test Item Value Reference Range Comments PARTIAL THROMBOPLASTIN TIME (BEAKER) (test code 97.6 seconds 22.5-36.0 = 760) CBC (HEMOGRAM ONLY)2019-05-12 05:37:00 Test Item Value Reference Range Comments WHITE BLOOD CELL COUNT (BEAKER) (test code = 5.6 K/ L 3.5 -10.5 775) RED BLOOD CELL COUNT (BEAKER) (test code = 761) 4.46 M/ L 4.63-6.08 HEMOGLOBIN (BEAKER) (test code = 410) 13.0 GM/DL 13.7-17.5 HEMATOCRIT (BEAKER) (test code = 411) 40.0 % 40.1-51.0 MEAN CORPUSCULAR VOLUME (BEAKER) (test code = 89.7 fL 79 .0-92.2 753) MEAN CORPUSCULAR HEMOGLOBIN (BEAKER) (test code 29.1 pg 25.7-32.2 = 751) MEAN CORPUSCULAR HEMOGLOBIN CONC (BEAKER) (test 32.5 GM/DL 32.3-36.5 code = 752) RED CELL DISTRIBUTION WIDTH (BEAKER) (test code 13.9 % 11.6-14.4 = 412) PLATELET COUNT (BEAKER) (test code = 756) 246 K/CU MM 150-45 0 MEAN PLATELET VOLUME (BEAKER) (test code = 754) 9.9 fL 9.4-12.4 NUCLEATED RED BLOOD CELLS (BEAKER) (test code = 0 /100 WBC 0-0 413) [id number] 21:34:00 Test Item Value Reference Range Comments PARTIAL THROMBOPLASTIN TIME (BEAKER) (test code 54.7 seconds 22.5-36.0 = 760) [id number] 12:22:00 Test Item Value Reference Range Comments PARTIAL THROMBOPLASTIN TIME (BEAKER) (test code 62.7 seconds 22.5-36.0 = 760) TROPONIN [id number] 09:48:00 Test Item Value Reference Range Comments TROPONIN I (BEAKER) (test code = 397) 0.79 ng/mL 0.00-0.03 Troponin I (TnI) levels [...] acidosis, acute neurological disease, and persistent tachyarrhythmia.TROPONIN [id number] 05:58:00 Test Item Value Reference Range Comments TROPONIN I (BEAKER) (test code = 397) 0.88 ng/mL 0.00-0.03 Troponin I (TnI) levels [...] acute neurological disease, and persistent tachyarrhythmia.BASIC METABOLIC [id number] 05:57:00 Test Item Value Reference Range Comments SODIUM (BEAKER) (test 138 meq/L 136-145 code = 381) POTASSIUM (BEAKER) (test 4.6 meq/L 3.5-5.1 Specime n slightly code = 379) hemolyzed CHLORIDE (BEAKER) (test 106 meq/L 98-107 code = 382) CO2 (BEAKER) (test code = 21 meq/L 22-29 355) BLOOD UREA NITROGEN 34 mg/dL 7-21 (BEAKER) (test code = 354) CREATININE (BEAKER) (test 2.55 mg/dL 0.57-1.25 Specim en slightly code = 358) hemolyzed GLUCOSE RANDOM (BEAKER) 99 mg/dL 70-105 (test code = 652) CALCIUM (BEAKER) (test 8.7 mg/dL 8.4-10.2 code = 697) EGFR (BEAKER) (test code 25 mL/min/1.73 sq m EST IMATED GFR IS NOT = 1092) ACCURATE CREA TININE CLEARANCE IN PRE DICTING GLOMERULAR FILTR ATION RATE. ESTIMATED GFR IS NOT APPLICABLE F OR DIALYSIS PATIENT S. [id number] 05:51:00 Test Item Value Reference Range Comments MAGNESIUM (BEAKER) (test code = 2.7 mg/dL 1.6-2.6 Specimen slightly hemolyzed 627) [id number] 05:43:00 Test Item Value Reference Range Comments PARTIAL THROMBOPLASTIN TIME (BEAKER) (test code 95.4 seconds 22.5-36.0 = 760) CBC (HEMOGRAM ONLY)2019-05-11 05:28:00 Test Item Value Reference Range Comments WHITE BLOOD CELL COUNT (BEAKER) (test code = 5.1 K/ L 3.5 -10.5 775) RED BLOOD CELL COUNT (BEAKER) (test code = 761) 4.14 M/ L 4.63-6.08 HEMOGLOBIN (BEAKER) (test code = 410) 12.2 GM/DL 13.7-17.5 HEMATOCRIT (BEAKER) (test code = 411) 37.7 % 40.1-51.0 MEAN CORPUSCULAR VOLUME (BEAKER) (test code = 91.1 fL 79 .0-92.2 753) MEAN CORPUSCULAR HEMOGLOBIN (BEAKER) (test code 29.5 pg 25.7-32.2 = 751) MEAN CORPUSCULAR HEMOGLOBIN CONC (BEAKER) (test 32.4 GM/DL 32.3-36.5 code = 752) RED CELL DISTRIBUTION WIDTH (BEAKER) (test code 14.2 % 11.6-14.4 = 412) PLATELET COUNT (BEAKER) (test code = 756) 227 K/CU MM 150-45 0 MEAN PLATELET VOLUME (BEAKER) (test code = 754) 10.0 fL 9.4-12.4 NUCLEATED RED BLOOD CELLS (BEAKER) (test code = 0 /100 WBC 0-0 413) TROPONIN [id number] 21:33:00 Test Item Value Reference Range Comments TROPONIN I (BEAKER) (test code = 397) 0.81 ng/mL 0.00-0.03 Troponin I (TnI) levels [...] disease, and persistent tachyarrhythmia.B-TYPE NATRIURETIC FACTOR (BNP) 2019-05-10 21:27:00 Test Item Value Reference Range Comments B-TYPE NATRIURETIC PEPTIDE (BEAKER) (test code = 1922 pg/mL 0-100 700) [id number] 21:21:00 Test Item Value Reference Range Comments MAGNESIUM (BEAKER) (test code = 627) 2.0 mg/dL 1.6-2.6 CREATINE KINASE (CK)2019-05-10 21:21:00 Test Item Value Reference Range Comments CREATINE KINASE TOTAL (BEAKER) (test code = 380) 58 U/L 29-200 BASIC METABOLIC [id number] 21:21:00 Test Item Value Reference Range Comments SODIUM (BEAKER) (test 136 meq/L 136-145 code = 381) POTASSIUM (BEAKER) (test 4.5 meq/L 3.5-5.1 code = 379) CHLORIDE (BEAKER) (test 109 meq/L 98-107 code = 382) CO2 (BEAKER) (test code = 18 meq/L 22-29 355) BLOOD UREA NITROGEN 30 mg/dL 7-21 (BEAKER) (test code = 354) CREATININE (BEAKER) (test 2.28 mg/dL 0.57-1.25 code = 358) GLUCOSE RANDOM (BEAKER) 115 mg/dL 70-105 (test code = 652) CALCIUM (BEAKER) (test 8.9 mg/dL 8.4-10.2 code = 697) EGFR (BEAKER) (test code 28 mL/min/1.73 sq m EST IMATED GFR IS NOT = 1092) ACCURATE CREA TININE CLEARANCE IN PRE DICTING GLOMERULAR FILTR ATION RATE. ESTIMATED GFR IS NOT APPLICABLE F OR DIALYSIS PATIENT S. PT/[id number] 21:03:00 Test Item Value Reference Range Comments PROTIME (BEAKER) (test code = 759) 14.6 seconds 11.9-14.2 INR (BEAKER) (test code = 370) 1.2 <=5.9 PARTIAL THROMBOPLASTIN TIME (BEAKER) (test code 40.5 seconds 22.5-36.0 = 760) Effective 10/12/2018: PT Reference Range ChangeNew: 11.9-14.2 Previous: 11.7- 14.7RECOMMENDED COUMADIN/WARFARIN INR THERAPY RANGESSTANDARD DOSE: 2.0-3.0 Includes: PROPHYLAXIS for venous thrombosis, systemic embolization; TREATMENT for venous thrombosis and/or pulmonary embolus.HIGH RISK: Target INR is2.5-3.5 for patients wiht mechanical heart valves.CBC W/PLT COUNT & AUTO [id number] 20:54:00 Test Item Value Reference Range Comments WHITE BLOOD CELL COUNT (BEAKER) (test code = 5.2 K/ L 3.5 -10.5 775) RED BLOOD CELL COUNT (BEAKER) (test code = 761) 4.21 M/ L 4.63-6.08 HEMOGLOBIN (BEAKER) (test code = 410) 12.4 GM/DL 13.7-17.5 HEMATOCRIT (BEAKER) (test code = 411) 38.9 % 40.1-51.0 MEAN CORPUSCULAR VOLUME (BEAKER) (test code = 92.4 fL 79 .0-92.2 753) MEAN CORPUSCULAR HEMOGLOBIN (BEAKER) (test code 29.5 pg 25.7-32.2 = 751) MEAN CORPUSCULAR HEMOGLOBIN CONC (BEAKER) (test 31.9 GM/DL 32.3-36.5 code = 752) RED CELL DISTRIBUTION WIDTH (BEAKER) (test code 14.3 % 11.6-14.4 = 412) PLATELET COUNT (BEAKER) (test code = 756) 238 K/CU MM 150-45 0 MEAN PLATELET VOLUME (BEAKER) (test code = 754) 10.0 fL 9.4-12.4 NUCLEATED RED BLOOD CELLS (BEAKER) (test code = 0 /100 WBC 0-0 413) NEUTROPHILS RELATIVE PERCENT (BEAKER) (test code 61 % = 429) LYMPHOCYTES RELATIVE PERCENT (BEAKER) (test code 27 % = 430) MONOCYTES RELATIVE PERCENT (BEAKER) (test code = 8 % 431) EOSINOPHILS RELATIVE PERCENT (BEAKER) (test code 3 % = 432) BASOPHILS RELATIVE PERCENT (BEAKER) (test code = 1 % 437) NEUTROPHILS ABSOLUTE COUNT (BEAKER) (test code = 3.17 K/ L 1.78-5.38 670) LYMPHOCYTES ABSOLUTE COUNT (BEAKER) (test code = 1.38 K/ L 1.32-3.57 414) MONOCYTES ABSOLUTE COUNT (BEAKER) (test code = 0.40 K/ L 0 .30-0.82 415) EOSINOPHILS ABSOLUTE COUNT (BEAKER) (test code = 0.16 K/ L 0.04-0.54 416) BASOPHILS ABSOLUTE COUNT (BEAKER) (test code = 0.03 K/ L 0 .01-0.08 417) IMMATURE GRANULOCYTES-RELATIVE PERCENT (BEAKER) 0 % 0-1 (test code = 2801)
[2019-09-05] MEDS ORDERED: DOPAMINE/D5W 400 MG/250 ML BAG IV ONE (12:57)
[2019-09-05 13:29] LABS: Absolute Lymphocytes (CBC) 1.6 K/uL (0.7-4.9); Basophils % 0.7 % (0-1.3); Hematocrit 26.7 % (39.6-49.0); MPV 8.8 fL (7.6-11.3); RBC Red Blood Cell Count 3.29 M/uL (4.33-5.43)
[2019-09-05 13:35] LABS: Protime INR 1.64
--- NOTE | 2019-09-05 13:36 | RAD REPORT ---
EXAM DESCRIPTION: RAD - Chest Single View - 09/05/2019 1:28 pm CLINICAL HISTORY: CPR Chest pain. COMPARISON: Chest Pa And Lat (2 Views) dated 09/01/2019; Chest Single View dated 07/11/2019; Chest Pa And Lat (2 Views) dated 07/02/2019; Chest Single View dated 06/30/2019 FINDINGS: Portable technique limits examination quality. Moderate bilateral pulmonary opacities are present with a small right pleural effusion, likely repres enting pulmonary edema or pneumonia. The heart is moderately enlarged in size with sternotomy wires p resent. Pacemaker device is present. ET tube tip is above the scarlet. Right-sided venous catheter has tip in the SVC. Enteric tube descends into the upper abdomen.
[2019-09-05 13:48] LABS: Bilirubin Direct 0.3 mg/dL (0-0.2); CKMB Creatine Kinase MB 3.6 ng/mL (0.3-3.6); Potassium 4.1 mmol/L (3.5-5.1); Protein, Total 5.2 g/dL (6.4-8.2); Troponin (Emerg Dept Use Only) 0.13 ng/mL (0.0-0.045)
[2019-09-05 13:53] LABS: Bilirubin Total 0.5 mg/dL (0.2-1.0)
[2019-09-05 14:01] LABS: Arterial Blood Carboxyhemoglob 1.9 % (0-1.5); Blood Gas Oxyhemoglobin 90.3 % (94-97); Blood O2 Saturation 92.8 % (92-98.5)
--- NOTE | 2019-09-05 14:07 | ER ---
Nurse's Notes [facility] Name: Neftaly Varghese Age: 73 yrs Sex: Male : 1945 Arrival Date: 09/05/2019 Time: 12:42 Bed 3 Private MD: Diagnosis: Syncope and collapse;CPR with Spont Return of Circulation Presentation: 09/04 12:40 Chief complaint: EMS states: Witnessed arrest at dialysis, CPR initiated, 1 round epi ph administered by EMS approx 20 min ED EDUCATIONAL AIDE. Initial Sepsis Screen: Does the patient meet any 2 criteria? No. Patient's initial sepsis screen is negative. Does the patient have a suspected source of infection? No. Patient's initial sepsis screen is negative. Onset of symptoms was September 05, 2019. 12:40 Care prior to arrival: Oral intubation, CPR via thumper performed by bystander ph Medication(s) given: Epinephrine x 1 Oxygen administered. via AMBU bag. Compressions began prior to arrival. 12:42 Coronavirus screen: Ebola Screen: No symptoms or risks identified at this time. ph 12:42 Method Of Arrival: EMS: [facility] ph 13:03 Initial Sepsis Screen:. Risk Assessment: Do you want to hurt yourself or someone else? ph Unable to obtain. 13:03 Acuity: DEVONTE 1 ph Historical: - Allergies: 13:05 Codeine; ph - PMHx: 13:05 Atrial Fib; Hyperlipidemia; Hypertension; Myocardial infarction; TIA; ph - PSHx: 13:05 CABG; Kidney stents; PROSTATE SX; PACEMAKER; CARDIAC STENTS; ph - Immunization history:: Adult Immunizations unknown. - Social history:: Smoking status: unknown. Screenin:05 Abuse screen: Denies threats or abuse. Denies injuries from another. Nutritional ph screening: No deficits noted. Tuberculosis screening: No symptoms or risk factors identified. Fall Risk None identified. Assessment: 12:40 Cardiac rhythm is Sinus rhythm, femoral pulse palpable. ph 12:40 General: Behavior is unresponsive. Neuro: Level of Consciousness is unresponsive, ph Oriented to none. Cardiovascular: Capillary refill is > 3 seconds in bilateral fingers Dialysis shunt: in the anterior aspect of right upper chest. Respiratory: Airway is patent via oral intubation Trachea midline Respiratory pattern is symmetrical, Ventilator assessment: ET Tube: 7.5 23 cm at gum line. Derm: Skin is intact, Skin is dusky, Skin temperature is cool. 12:40 GI: NGT to L nare 14 Fr. ph 12:40 CPR assessment: unresponsive, intubated, Ambu ventilation. ph 13:40 Respiratory: Ventilator assessment: ET Tube: 7.5 23 cm at gum line. Ventilator Mode: sv Assist Control (AC) Respiratory Rate: 20 FiO2: 100%. PEEP: 10 HOB > 30 degrees. TV 460. 14:16 Reassessment: Patient appears in no apparent distress at this time. Patient and/or ph family updated on plan of care and expected duration. Pain level reassessed. Hospitalist at bedside speaking w/ family. 15:27 Reassessment: Patient appears in no apparent distress at this time. No changes from ph previously documented assessment. Patient and/or family updated on plan of care and expected duration. Pain level reassessed. Report called to Madison JALLOH. Vital Signs: 12:42 BP 96 / 61; Pulse 80; Resp 24; Pulse Ox 100% on ETT ambu; ph 13:06 BP 87 / 65; Pulse 80; Resp 16; Pulse Ox 87% on ETT vent; ph 13:23 Weight 80 kg; ph 13:25 BP 94 / 59; Pulse 80; Resp 18; Pulse Ox 100% on 100% FiO2 ETT vent; ph 13:33 Temp 91.2; ph 13:36 BP 98 / 58; Pulse 80; Resp 18; Temp 92.8; Pulse Ox 99% on 100% FiO2 ETT vent; sv 14:00 BP 97 / 58; Pulse 80; Resp 18; Temp 93.9(C); Pulse Ox 99% on 100% FiO2 ETT vent; sv 14:26 BP 96 / 64; Pulse 80; Resp 20; Temp 93.9(C); Pulse Ox 97% on 100% FiO2 ETT vent; ph 15:00 BP 105 / 71; Pulse 80; Resp 18; Temp 94.3; Pulse Ox 98% on 100% FiO2 ETT vent; ph ED Course: 12:42 Patient arrived in ED. em1 12:52 Assisted provider with central line placement. Set up central line tray. Triple lumen ph line placed in right femoral. Line placed by Umair Rosenbaum MD Placement verified by blood return, Dressed with 4X4s, Tegaderm, Blood was collected. Patient tolerated well. Before procedure, did Practitioner(s) obtain informed consent? No. Patient \T\ family education about procedure, CLABSI prevention and S/S of infection? No. Time-out/Briefing performed prior to start of procedure? Yes. Was handwashing/sanitizing done immediately prior to procedure? Yes. Was patient positioned to in a way to prevent air embolism? Yes. Was procedure site sterilized? Yes, with Was the site allowed to dry? Yes. Was local anesthetic and/or sedation utilized? No. During the procedure, did the Practitioner(s) maintain a sterile field? Yes. Were unused ports clamped during insertion? Yes. Was a 2nd qualified MD obtained after 3 unsuccessful insertion attempts? No. Was blood aspirated from each lumen? Yes. After the procedure, did the Practitioner(s) clean the site and apply a sterile dressing? Yes. Patient admitted, IV remains in place. 13:02 Amira Hutchinson RN is Primary Nurse. ph 13:04 Triage completed. ph 13:04 Umair Rosenbaum MD is Attending Physician. kdr 13:12 Arm band placed on Patient placed in an exam room, on a stretcher, on oxygen, on ph hospital monitor, on pulse oximetry. 13:13 Patient has correct armband on for positive identification. Bed in low position. Call ph light in reach. Side rails up X2. panel monitor on. Pulse ox on. NIBP on. 13:25 Melara cath inserted, using sterile technique, 16 Fr., by line crew supervisor, balloon inflated, to ph gravity drainage. 13:29 Chest Single View XRAY In Process Unspecified. EDMS 13:30 Thermoregulation: Mohini blanket applied. sv 13:42 Amylase, Serum Sent. sv 13:42 Basic Metabolic Panel Sent. sv 13:42 Blood Culture Adult (2) Sent. sv 13:42 CBC with Diff Sent. sv 14:04 Chan Elliott DO is Hospitalizing Provider. kdr 14:06 Notified ED physician of a critical lab result(s). hemoglobin-7.9. sv Administered Medications: 12:53 Drug: NS 0.9% (30 ml/kg) 30 ml/kg Route: IV; Rate: bolus; Site: right femoral; ph 14:30 Follow up: Response: No adverse reaction; IV Status: Completed infusion; IV Intake: ph 1000ml 12:55 Drug: Dopamine drip 5 mcg/kg/min - (DOPamine 400 mg, D5W 250 ml) Route: IV; Rate: ph calculated rate; Site: right femoral; 13:20 Follow up: Rate change 10 mcg/kg/min ph 13:30 Follow up: Rate change 15 calculated rate sv 15:00 Follow up: Response: No adverse reaction; IV Status: Infusion continued upon admission ph 14:59 Drug: Rocephin 1 grams Route: IV; Rate: calculated rate; Site: right femoral; ph 15:25 Follow up: Response: No adverse reaction; IV Status: Completed infusion ph Intake: 14:30 IV: 1000ml; Total: 1000ml. ph Outcome: 14:06 Decision to Hospitalize by Provider. kdr 15:48 Patient left the ED. sv 15:48 Admitted to ICU accompanied by nurse, accompanied by tech, via stretcher, room 3, with ph oxygen, on monitor, with chart, Other accompanied by RT Report called to YEIMI Wallace 15:48 critical Signatures: Dispatcher [employer] Maya Angeles, RN RN Umair Rosenbaum MD MD kdr Martinez, Eric Amira Chatterjee RN RN ph
--- NOTE | 2019-09-05 14:07 | EDPHYS ---
Physician Documentation [facility] Name: Neftaly Varghese Age: 73 yrs Sex: Male : 1945 Arrival Date: 09/05/2019 Time: 12:42 Bed 3 Private MD: ED Physician Umair Rosenbaum HPI: 09/04 15:06 This 73 yrs old Male presents to ER via EMS with complaints of CPR. kdr 15:06 Preceding the arrest, the patient collapsed. The arrest occurred Dialysis. Pre-hospital kdr course: The arrest was witnessed Bystanders at the scene performed CPR. EMS care prior to arrival: initiation of ACLS, peripheral IV, intubation oxygen, Other The patient had been unresponsive for about 45 minutes prior to arrival. Last report was pulseless. ACLS details: Initial rhythm was Paced The presenting rhythm is paced Airway: oral intubation, Medications given by EMS prior to arrival - Epinephrine IV x 4 doses. The patient was there for his first dialysis session when two minutes into the session, he collapsed and became unresponsive. CPR was started immediately. He did not regain consciousness at any time. Onset: The symptoms/episode began/occurred acutely, just prior to arrival. Severity of symptoms: At their worst the symptoms were incapacitating in the emergency department the symptoms are unchanged. The patient has not experienced similar symptoms in the past. The patient has been recently seen by a physician: the patient's primary care provider. Historical: - Allergies: 13:05 Codeine; ph - PMHx: 13:05 Atrial Fib; Hyperlipidemia; Hypertension; Myocardial infarction; TIA; ph - PSHx: 13:05 CABG; Kidney stents; PROSTATE SX; PACEMAKER; CARDIAC STENTS; ph - Immunization history:: Adult Immunizations unknown. - Social history:: Smoking status: unknown. ROS: 15:06 Constitutional: Unobtainable due to the patinet being unresponsive and familywas not kdr immedately available Eyes: Negative for injury, pain, redness, and discharge. 15:06 Unable to obtain ROS due to comatose state, obtunded state. Exam: 15:06 Constitutional: This is a well developed, well nourished patient who is awake, alert, kdr and in no acute distress. Head/Face: Normocephalic, atraumatic. Neck: Trachea midline, no thyromegaly or masses palpated, and no cervical lymphadenopathy. Supple, full range of motion without nuchal rigidity, or vertebral point tenderness. No Meningismus. Chest/axilla: Normal chest wall appearance and motion. Nontender with no deformity. No lesions are appreciated. Cardiovascular: Regular rate and rhythm with a normal S1 and S2. No gallops, murmurs, or rubs. Normal PMI, no JVD. No pulse deficits. Abdomen/GI: Soft, non-tender, with normal bowel sounds. No distension or tympany. No guarding or rebound. No evidence of tenderness throughout. Back: No spinal tenderness. No costovertebral tenderness. Full range of motion. Skin: Warm, dry with normal turgor. Normal color with no rashes, no lesions, and no evidence of cellulitis. MS/ Extremity: Pulses equal, no cyanosis. Neurovascular intact. Full, normal range of motion. Neuro: Awake and alert, GCS 15, oriented to person, place, time, and situation. Cranial nerves II-XII grossly intact. Motor strength 5/5 in all extremities. Sensory grossly intact. Cerebellar exam normal. Normal gait. Psych: Awake, alert, with orientation to person, place and time. Behavior, mood, and affect are within normal limits. 15:06 Respiratory: Respirations: Occasional agonal brearthing. Vital Signs: 12:42 BP 96 / 61; Pulse 80; Resp 24; Pulse Ox 100% on ETT ambu; ph 13:06 BP 87 / 65; Pulse 80; Resp 16; Pulse Ox 87% on ETT vent; ph 13:23 Weight 80 kg; ph 13:25 BP 94 / 59; Pulse 80; Resp 18; Pulse Ox 100% on 100% FiO2 ETT vent; ph 13:33 Temp 91.2; ph 13:36 BP 98 / 58; Pulse 80; Resp 18; Temp 92.8; Pulse Ox 99% on 100% FiO2 ETT vent; sv 14:00 BP 97 / 58; Pulse 80; Resp 18; Temp 93.9(C); Pulse Ox 99% on 100% FiO2 ETT vent; sv 14:26 BP 96 / 64; Pulse 80; Resp 20; Temp 93.9(C); Pulse Ox 97% on 100% FiO2 ETT vent; ph 15:00 BP 105 / 71; Pulse 80; Resp 18; Temp 94.3; Pulse Ox 98% on 100% FiO2 ETT vent; ph Procedures: 15:20 Central Line: the site was prepped with Betadine, in sterile fashion, a triple lumen kdr catheter was inserted, in the right femoral vein, in 1 attempts. placement was verified, by blood return, the site was dressed with Tegaderm, using sterile technique, the patient tolerated the procedure, well. MDM: 14:06 Patient medically screened. kdr 15:14 Data reviewed: vital signs, nurses notes, lab test result(s). Counseling: I had a kdr detailed discussion with the patient and/or guardian regarding: the historical points, exam findings, and any diagnostic results supporting the discharge/admit diagnosis, lab results, radiology results, the need for further work-up and treatment in the hospital. ED course: The patient remained in stable but critical condition in the ED. Family was not immediately available but when arrived, Dr. Elliott learned that the patient was DNR. 09/04 13:03 Order name: Amylase, Serum ph 09/04 13:03 Order name: Basic Metabolic Panel ph 09/04 13:03 Order name: Blood Culture Adult (2) ph 09/04 13:03 Order name: CBC with Diff ph 09/04 13:03 Order name: Ckmb ph 09/04 13:03 Order name: CPK ph 09/04 13:03 Order name: Lactate; Complete Time: 13:56 ph 09/04 13:03 Order name: LFT's ph 09/04 13:03 Order name: Lipase ph 09/04 13:03 Order name: Procalcitonin ph 09/04 13:03 Order name: Protime (+inr); Complete Time: 13:56 ph 09/04 13:03 Order name: Ptt, Activated; Complete Time: 13:56 ph 09/04 13:03 Order name: Troponin (emerg Dept Use Only) ph 09/04 13:03 Order name: Urine Microscopic Only ph 09/04 13:03 Order name: Chest Single View XRAY; Complete Time: 13:56 ph 09/04 13:03 Order name: Accucheck; Complete Time: 13:12 ph 09/04 13:03 Order name: Cardiac monitoring; Complete Time: 13:12 ph 09/04 13:03 Order name: EKG - Nurse/Tech; Complete Time: 13:12 ph 09/04 13:03 Order name: IV Saline Lock - Large Bore; Complete Time: 13:12 ph 09/04 13:03 Order name: Labs collected and sent; Complete Time: 13:12 ph 09/04 13:03 Order name: O2 Per Protocol; Complete Time: 13:12 ph 09/04 13:05 Order name: Amylase Level EDMS 09/04 13:05 Order name: Basic Metabolic Panel EDMS 09/04 13:05 Order name: Blood Culture EDMS 09/04 13:05 Order name: CBC with Automated Diff EDMS 09/04 14:01 Order name: ABG Arterial Blood Gas EDMS 09/04 14:20 Order name: EKG Electrocardiogram EDMS 09/04 13:03 Order name: O2 Sat Monitoring; Complete Time: 13:12 ph Administered Medications: 12:53 Drug: NS 0.9% (30 ml/kg) 30 ml/kg Route: IV; Rate: bolus; Site: right femoral; ph 14:30 Follow up: Response: No adverse reaction; IV Status: Completed infusion; IV Intake: ph 1000ml 12:55 Drug: Dopamine drip 5 mcg/kg/min - (DOPamine 400 mg, D5W 250 ml) Route: IV; Rate: ph calculated rate; Site: right femoral; 13:20 Follow up: Rate change 10 mcg/kg/min ph 13:30 Follow up: Rate change 15 calculated rate sv 15:00 Follow up: Response: No adverse reaction; IV Status: Infusion continued upon admission ph 14:59 Drug: Rocephin 1 grams Route: IV; Rate: calculated rate; Site: right femoral; ph 15:25 Follow up: Response: No adverse reaction; IV Status: Completed infusion ph Disposition: 15:14 Critical Care:. kdr Disposition: 09/05/19 14:06 Hospitalization ordered by Chan Elliott for Inpatient Admission. Preliminary diagnosis are Syncope and collapse, CPR with Spont Return of Circulation. - Bed requested for Intensive Care Unit. - Status is Inpatient Admission. sv - Condition is Critical. - Problem is new. - Symptoms are unchanged. Critical care time excluding procedures: 15:14 Critical care time: Bedside Care: 30 minutes, Consultation: 10 minutes. Total time: 40 kdr minutes Signatures: Dispatcher [employer] Maya Angeles RN RN sv Umair Rosenbaum MD MD kdr Smirch, Shelby RN RN ss Amira Hutchinson, RN RN Francisco Hamilton, RN RN ja1 Corrections: (The following items were deleted from the chart) 14:50 14:06 Hospitalization Ordered by Chan Elliott DO for Inpatient Admission. Preliminary ja1 diagnosis is Syncope and collapse; CPR with Spont Return of Circulation. Bed requested for Intensive Care Unit. Status is Inpatient Admission. Condition is Critical. Problem is new. Symptoms are unchanged. kdr 15:48 14:50 09/05/2019 14:06 Hospitalization Ordered by Chan Elliott DO for Inpatient sv Admission. Preliminary diagnosis is Syncope and collapse; CPR with Spont Return of Circulation. Bed requested for Intensive Care Unit. Status is Inpatient Admission. Condition is Critical. Problem is new. Symptoms are unchanged. ja1
[2019-09-05] MEDS ORDERED: CEFTRIAXONE/SWI 1gm 1 GM/10 ML SYR ONE (15:09)
[2019-09-05] MEDS ORDERED: ACETAMINOPHEN 650MG/RECT SUPP PR PRN (15:16)
[2019-09-05] MEDS ORDERED: ACETAMINOPHEN 500 MG TAB PO PRN (15:16)
[2019-09-05] MEDS ORDERED: DOPAMINE/D5W 400 MG/250 ML BAG IV PRN (15:16)
[2019-09-05] MEDS ORDERED: ONDANSETRON 4 MG/2 ML VIAL IV PRN (15:16)
--- NOTE | 2019-09-05 16:09 | P.HP ---
Certification for Inpatient Patient admitted to: Inpatient With expected LOS: >2 Midnights Patient will require the following post-hospital care: Hospice Practitioner: I am a practitioner with admitting privileges, knowledge of patient current condition, hospital course, and medical plan of care. Services: Services provided to patient in accordance with Admission requirements found in Title 42 Section 412.3 of the Code of Federal Regulations Patient History Date of Service: 09/05/19 Primary Care Provider: Dr. Morales Reason for admission: Syncope, Cardiac arrest History of Present Illness: 73-year-old male with multiple medical problems including end-stage renal disease on hemodialysis, systolic congestive heart failure with ejection fraction 19%, CAD, hypertension. Recently in May patient had heart catheterization. Right Coronary had ostial subtotal stenosis. His LAD stent. The diagonal branch from the stented portion low was 70% stenosis. Lad, circumflex and very large ramus were free of significant disease. No further intervention was required. Patient also recently started dialysis today. While in dialysis patient had syncopal episode leading to cardiac arrest. Patient was pulseless. Patient required bystander CPR. When EMS arrived CPR continued. Patient was given epinephrine x1. When the patient arrived to the ER there was some question of the patient being pulseless for quite some time. There were able to get a pulse back. Patient intubated. On lab white count 5.4, hemoglobin 7.9. Sodium 137, potassium 4.1, BUN of 61, creatinine 4.6 with a GFR of 13. Glucose 165. Troponin 0.13. Lactic acid 4.0. Chest x-ray shows volume overload. Patient has been stabilize. Patient required dopamine due to low blood pressure. Patient currently on the ventilator. Patient stable at this time. Patient admitted for ICU evaluation and treatment. When I saw the patient, he has been without sedation. Patient remains on the ventilator without sedation. No significant response to pain noted. Family at bedside. 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 Current status also addressed. Nephrology and Cardiology report patient has multiple medical issues with critical heart disease, atrial fibrillation, end-stage renal disease, hypertension and significant CHF. Allergies codeine Adverse Reaction (Mild, Verified 07/11/19 22:10) Nausea/Vomiting Home medications list reviewed: Yes Home Medications: Amiodarone HCl [Cordarone*] 200 mg PO DAILY 06/29/19 Atorvastatin Calcium [Lipitor] 80 mg PO BEDTIME 06/29/19 Cholecalciferol (Vitamin D3) [Vitamin D3] 2,000 unit PO DAILY 06/29/19 Clopidogrel Bisulfate [Plavix] 75 mg PO DAILY 06/29/19 Esomeprazole Magnesium 40 mg PO DAILY 06/29/19 Ezetimibe 10 mg PO BEDTIME 06/29/19 Famotidine 10 mg PO BEDTIME 06/29/19 Folic Acid 0.4 mg PO DAILY 06/29/19 Metoclopramide [Reglan*] 10 mg PO TID 06/29/19 Metoprolol Tartrate 25 mg PO BID 06/29/19 Nitroglycerin [Nitrostat*] 0.4 mg SL SEECOM 06/29/19 [place]-3/Dha/Epa/Fish Oil [Fish Oil 1,000 mg Softgel] 2 each PO DAILY 06/29/19 Tamsulosin [Flomax*] 2 cap PO DAILY 06/29/19 Trazodone [Desyrel*] 50 mg PO BEDTIME 06/29/19 Calcitrol [Rocaltrol*] 0.5 mcg PO DAILY 07/12/19 Furosemide [Lasix] 40 mg PO DAILY 07/12/19 Sertraline HCl 1 tab PO DAILY 07/12/19 Apixaban [Eliquis *] 2.5 mg PO BID #60 tablet 07/14/19 - Past Medical/Surgical History Diabetic: No -: HTN -: BPH -: CAD, [place], Stent to the heart, Cardiology-Dr. 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 no response to pain sedation.) HEENT: Atraumatic Neck: Supple Respiratory: Crackles/rales (The bases) Cardiovascular: Normal pulses, Regular rate/rhythm Gastrointestinal: Normal bowel sounds Neurological: Other (patient is intubated. ) - Studies Laboratory Data (last 24 hrs) 09/05/19 12:55: PT 19.2 H, INR 1.64, APTT 46.7 H 09/05/19 12:55: WBC 5.4, Hgb 7.9 L*, Hct 26.7 L, Plt Count 192 09/05/19 12:55: Sodium 137, Potassium 4.1, BUN 68 H, Creatinine 4.63 H, Glucose 165 H, Total Bilirubin 0.5, AST 55 H, ALT 46, Alkaline Phosphatase 143 H, Amylase 31, Lipase 107 Assessment and Plan - Plan Impression: Syncope with cardiac arrest now with acute respiratory failure with cardiogenic shock complicated with acute on chronic systolic CHF, CAD End-stage renal disease on hemodialysis Anemia of chronic disease History of atrial fibrillation Plan: Syncope with cardiac arrest now with acute respiratory failure with cardiogenic shock complicated with acute on chronic systolic CHF, CAD: The patient will be added to ICU. Patient currently on dopamine. Will maintain map of 65. Will provide DVT prophylaxis. Patient with history of systolic CHF with ejection fraction of 19%. Patient with severe CAD. Patient currently intubated. Continue vent protocol. Will consult pulmonology to further address. Case discussed at length with nephrology and cardiology. Patient with poor prognosis. Patient started today with dialysis. Likely with uremia. Cardiology also expressed patient has poor prognosis and medical problems. This was addressed in detail with and family. Advanced directives address in detail. Patient had expressed that he wanted to be DNR. wants to respect this. Will continue with advanced directives as DNR. Will continue to monitor closely. Respiratory to help with ventilation. If his condition continues to decline may need to consider withdrawal of care. This was addressed in detail with family. understands. Will continue to reassess and monitor closely. Will further discuss with nephrology and cardiology. Nephrology does plan for dialysis today. End-stage renal disease on hemodialysis: Continue with recommendations by nephrology. Patient will likely require dialysis today. Anemia of chronic disease: Will monitor closely. Patient may require transfusion. History of atrial fibrillation: Need to obtain and restart home medication. Critical care including advanced care planning and discussion with family and specialty care: 60 min. Discharge Plan: Home Plan to discharge in: Greater than 2 days - Advance Directives Does patient have a Living Will: No Does patient have a Durable POA for Healthcare: No - Code Status/Comfort Care Code Status Assessed: Yes (Discuss with and family. Patient is do not resuscitate. ) Time Spent Managing Pts Care (In Minutes): 55
[2019-09-05] MEDS ORDERED: MANNITOL 25% 12.5 GM/50 ML VIAL IV PRN (18:21)
[2019-09-05] MEDS ORDERED: NA CHLORIDE 0.9% 1,000 ML IV PRN (18:21)
[2019-09-05] MEDS ORDERED: ALBUMIN HUMAN 25% 50 ML IV SCH (19:00)
[2019-09-05] MEDS: EPOETIN ALFA-EPBX 10,000 UNIT/ML VIAL SQ ONE ×2 (19:00→20:52)
[2019-09-05] MEDS ORDERED: propofoL 1,000 MG/100 ML VIAL IV PRN (20:39)
[2019-09-05] MEDS ORDERED: HALOPERIDOL LACT 5 MG/ML INJ IV PRN (20:39)
[2019-09-05] MEDS ORDERED: NA CHLORIDE 0.9% 250 ML IV PRN (20:39)
[2019-09-05] MEDS ORDERED: MIDAZOLAM HCL 2 MG/2 ML INJ IV PRN (20:39)
--- NOTE | 2019-09-05 20:41 | P.CNS ---
Date of Consult: 09/05/19 Reason for Consult: ESRD Requesting Physician: Chan Elliott Primary Care Provider: Dr. Morales Chief Complaint: Syncope, Cardiac arrest History of Present Illness: 73 yo WM CAD, CKD presented to the ER from dialysis following a cardiac arrest in the first 5-10 minutes of dialysis. CPR was performed and EMS was called. 73-year-old male with multiple medical problems including end-stage renal disease on hemodialysis, systolic congestive heart failure with ejection fraction 19%, CAD, hypertension. Recently in May patient had heart catheterization. Right Coronary had ostial subtotal stenosis. His LAD stent. The diagonal branch from the stented portion low was 70% stenosis. Lad, circumflex and very large ramus were free of significant disease. No further intervention was required. Patient also recently started dialysis today. While in dialysis patient had syncopal episode leading to cardiac arrest. Patient was pulseless. Patient required bystander CPR. When EMS arrived CPR continued. Patient was given epinephrine x1. When the patient arrived to the ER there was some question of the patient being pulseless for quite some time. There were able to get a pulse back. Patient intubated. 15:06 This 73 yrs old Male presents to ER via EMS with complaints of CPR. kdr 15:06 Preceding the arrest, the patient collapsed. The arrest occurred Dialysis. Pre-hospital kdr course: The arrest was witnessed Bystanders at the scene performed CPR. EMS care prior to arrival: initiation of ACLS, peripheral IV, intubation oxygen, Other The patient had been unresponsive for about 45 minutes prior to arrival. Last report was pulseless. ACLS details: Initial rhythm was Paced The presenting rhythm is paced Airway: oral intubation, Medications given by EMS prior to arrival - Epinephrine IV x 4 doses. The patient was there for his first dialysis session when two minutes into the session, he collapsed and became unresponsive. CPR was started immediately. He did not regain consciousness at any time. Onset: The symptoms/episode began/occurred acut kacie, just prior to arrival. Severity of symptoms: At their worst the symptoms were incapacitating in the emergency department the symptoms are unchanged. The patient has not experienced similar symptoms in the past. The patient has been recently seen by a physician: the patient's primary care provider. Allergies codeine Adverse Reaction (Mild, Verified 07/11/19 22:10) Nausea/Vomiting Home medications list reviewed: Yes Home Medications: Amiodarone HCl [Cordarone*] 200 mg PO DAILY 06/29/19 Atorvastatin Calcium [Lipitor] 80 mg PO BEDTIME 06/29/19 Cholecalciferol (Vitamin D3) [Vitamin D3] 1 cap PO DAILY 06/29/19 Clopidogrel Bisulfate [Plavix] 75 mg PO DAILY 06/29/19 Ezetimibe 10 mg PO BEDTIME 06/29/19 Famotidine 40 mg PO BEDTIME 06/29/19 Nitroglycerin [Nitrostat*] 0.4 mg SL SEECOM 06/29/19 [place]-3/Dha/Epa/Fish Oil [Fish Oil 1,000 mg Softgel] 2 each PO DAILY 06/29/19 Tamsulosin [Flomax*] 2 cap PO DAILY 06/29/19 Trazodone [Desyrel*] 50 mg PO BEDTIME 06/29/19 Calcitrol [Rocaltrol*] 0.5 mcg PO DAILY 07/12/19 Furosemide [Lasix] 40 mg PO BID 07/12/19 Sertraline HCl 1 tab PO DAILY 07/12/19 Apixaban [Eliquis *] 2.5 mg PO BID 09/05/19 Cyanocobalamin [Vitamin B-12*] 1,000 mcg PO DAILY 09/05/19 Fluticasone Propionate [24 Hour Allergy] 1 spray ANTONIETTA BID 09/05/19 Gabapentin 100 mg PO TID 09/05/19 Omeprazole [Prilosec] 40 mg PO DAILY 09/05/19 - Past Medical/Surgical History Diabetic: No -: HTN -: BPH -: CAD, [place], Stent to the heart, Cardiology-Dr. 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 moist/pink Neck: Supple, JVD distended Respiratory: Normal air movement Cardiovascular: Regular rate/rhythm, Edema Gastrointestinal: Soft and benign, Non-distended Musculoskeletal: No clubbing, No contractures Integumentary: No rashes, No cyanosis Neurological: Abnormal speech, Abnormal affect Urinary: Dialysis catheter Laboratory Data (last 24 hrs) 09/05/19 12:55: PT 19.2 H, INR 1.64, APTT 46.7 H 09/05/19 12:55: WBC 5.4, Hgb 7.9 L*, Hct 26.7 L, Plt Count 192 09/05/19 12:55: Sodium 137, Potassium 4.1, BUN 68 H, Creatinine 4.63 H, Glucose 165 H, Total Bilirubin 0.5, AST 55 H, ALT 46, Alkaline Phosphatase 143 H, Amylase 31, Lipase 107 Imagings Data: EXAM DESCRIPTION: RAD - Chest Single View - 09/05/2019 1:28 pm CLINICAL HISTORY: CPR Chest pain. COMPARISON: Chest Pa And Lat (2 Views) dated 09/01/2019; Chest Single View dated 07/11/2019; Chest Pa And Lat (2 Views) dated 07/02/2019; Chest Single View dated 06/30/2019 FINDINGS: Portable technique limits examination quality. Moderate bilateral pulmonary opacities are present with a small right pleural effusion, likely representing pulmonary edema or pneumonia. The heart is moderately enlarged in size with sternotomy wires present. Pacemaker device is present. ET tube tip is above the scarlet. Right-sided venous catheter has tip in the SVC. Enteric tube descends into the upper abdomen. Conclusions/Impression: A/ ESRD. First HD 09-05-19. Acidosis. Hypocalcemia. HTN complicated by hypotension. Systolic CHF, A/C. CAD/ PAD with YUE. Anemia in CKD. Acute hypoxic respiratory failure. Cardiac arrest with possible anoxic brain injury. P/ Continue current POC and Medications. Acute HD as ordered. Pressor therapy as needed. Ventilatory support as ordered. Give Retacrit. Restart home medications as indicated. No NSAIDs. AM labs. Daily weight. Thank you kindly for the consultation. Case reviewed with Dr. Elliott. Case reviewed with the patient's . Critical Care: Yes (Greater than 30min patient care.)
[2019-09-05] MEDS: HEPARIN 5000 UNIT/ML 1 ML VIAL SQ SCH (22:44)
[2019-09-05] MEDS: FAMOTIDINE 20 MG/2 ML VIAL IV SCH (22:44)
[2019-09-05 22:51] LABS: CKMB Creatine Kinase MB 17.5 ng/mL (0.3-3.6); Troponin I 0.7 ng/mL (0.0-0.045)
[2019-09-06 05:29] LABS: Arterial Blood Carboxyhemoglob 1.8 % (0-1.5); Blood O2 Saturation 95.7 % (92-98.5)
[2019-09-06 05:48] LABS: Absolute Lymphocytes (CBC) 0.5 K/uL (0.7-4.9); Basophils % 0.3 % (0-1.3); Hematocrit 26.1 % (39.6-49.0); Lymphocytes % 8.6 % (15.3-44.8); MPV 8.3 fL (7.6-11.3); RBC Red Blood Cell Count 3.35 M/uL (4.33-5.43)
[2019-09-06 05:49] LABS: Albumin 2.6 g/dL (3.4-5.0); Magnesium 2.2 mg/dL (1.8-2.4); Potassium 4.1 mmol/L (3.5-5.1); Protein, Total 6.3 g/dL (6.4-8.2)
[2019-09-06 05:53] LABS: Bilirubin Total 1.1 mg/dL (0.2-1.0)
[2019-09-06 06:18] LABS: CKMB Creatine Kinase MB 9.6 ng/mL (0.3-3.6)
[2019-09-06 06:20] LABS: Troponin I 0.61 ng/mL (0.0-0.045)
[2019-09-06 06:54] LABS: Anisocytosis 2+; Blood Morphology Comment NOTED (NOT SEEN); Platelet Estimate ADEQ; Urine White Blood Cell Casts OK
[2019-09-06 06:55] LABS: Burr Cells 2+; Hypochromasia 1+
--- NOTE | 2019-09-06 08:31 | RAD REPORT ---
EXAM DESCRIPTION: RAD - Chest Single View - 09/06/2019 5:42 am CLINICAL HISTORY: intubation Chest pain. COMPARISON: Chest Single View dated 09/05/2019; Chest Pa And Lat (2 Views) dated 09/01/2019; Chest Sin gle View dated 07/11/2019; Chest Pa And Lat (2 Views) dated 07/02/2019 FINDINGS: Portable technique limits examination quality. Bilateral pulmonary opacities are again noted, slightly progressive on the right since comparative st udy. The heart is moderately enlarged with dual lead pacer device present. Tip of the ET tube is abov e the scarlet. Enteric tube tip appears to be in the distal esophagus. Right-sided venous catheter is unchanged position.
[2019-09-06] MEDS: HEPARIN 5000 UNIT/ML 1 ML VIAL SQ SCH ×2 (08:46→21:07)
[2019-09-06] MEDS: FAMOTIDINE 20 MG/2 ML VIAL IV SCH (08:46)
--- NOTE | 2019-09-06 08:47 | RAD REPORT ---
EXAM DESCRIPTION: CT - Head Brain Wo Cont - 09/06/2019 8:39 am CLINICAL HISTORY: encephalopathy, s/p cardiac arrest Headache, drowsiness COMPARISON: Head Brain Wo Cont dated 07/12/2019; HEAD BRAIN W O CONTRAST dated 06/25/2013 TECHNIQUE: All CT scans are performed using dose optimization technique as appropriate and may inclu de automated exposure control or mA/KV adjustment according to patient size. FINDINGS: No intracranial hemorrhage, hydrocephalus or extra-axial fluid collection.Mild generalized brain atrophy is present with moderate periventricular and deep white matter chronic microvascular i schemic changes.No areas of brain edema or evidence of midline shift. The paranasal sinuses and mastoids are clear. The calvarium is intact. IMPRESSION: No acute intracranial abnormality.
--- NOTE | 2019-09-06 08:51 | PN ---
Date of Progress Note: 09/06/2019 Mr. Varghese is a 73, who was admitted yesterday to the ICU following a cardiac arrest. He has multip le medical problems including ejection fraction of 19%. He has acute on chronic systolic congestive heart failure, end-stage renal disease, status post dialysis yesterday. He has a history of hyperten jatinder, dyslipidemia, TIA, renal artery stenosis, status post pacemaker, status post CABG, history of v entricular tachycardia in the past, and atrial fibrillation for which he takes amiodarone and Eliquis . Today, he remains obtunded. He had some good reflexes, but does not respond to verbal command, bu t he does withdraw to painful stimuli. O2 saturation is adequate today. His last creatinine is 4.63 . His blood pressure is 117/75. Hemoglobin is 8.2. His last blood gas is of 72 pO2, pCO2 of 28, an d pH of 7.47. He is receiving dopamine and albumin. Case was discussed with the family and Dr. Earl roe. Plan to get an EEG today and CT scan of the head today. Echocardiogram is pending today. He wi ll continue to follow. No change in medical therapy for now. NB/MODL Voice ID: [id number] Report ID: [id number]
--- NOTE | 2019-09-06 09:51 | CON ---
Date of Consultation: 09/05/2019 Reason For Consultation: Status post cardiac arrest. History Of Present Illness: Mr. Varghese is a 73-year-old white male with a very complicated past car diovascular history and medical history. He started his first session of dialysis and 5 minutes into it he went into cardiac arrest with asystole, received CPR, initial oral intubation for injection of epinephrine, was down for about 35 minute before he was back in normal rhythm and fully intubated me chanically in the emergency room and transferred to the ICU from the emergency room. Prior to the ep isode of his arrest there was no report of chest pain or palpitations. Patient prior to his dialysis has been feeling weak, short of breath with PND, orthopnea, and pedal edema. He has developed renal failure recently. He also recently had coronary artery bypass surgery to his RCA in [place]. His l ast ejection fraction was less than 20%. He does have a pacemaker that was placed for atrial fibrill ation. He was supposed to have a defibrillator sometime in September or October depending what his ejection f raction does. His PO2 now is 85 with pCO2 of 46 and pH of 7.22. He is in sinus rhythm with a blood pressure of 96 to 64 with a mean last hemoglobin of 7.9. INR was 1.64, creatinine is 4.63. His lact ic acid was 4.8. The troponin was 0.13. Chest x-ray showed congestive heart failure versus pneumoni a. Past Medical History: 1.Extensive and include acute chronic systolic congestive heart failure, ejection fraction of 19%. 2.Coronary artery disease status post CABG. 3.End-stage renal disease, just started dialysis. 4.Status post renal stents in the past. 5.Status post carotid stents. 6.Status post coronary stent in the past. 7.High blood pressure. 8.Dyslipidemia. 9.Tobacco use. 10.History of TIA. 11.History of pacemaker placement. Review of Systems: Negative. Social History: Unremarkable. Family History: Noncontributory. Medications: At home include amiodarone, Eliquis, Lipitor, Plavix, Zetia, Lasix, and metoprolol 25 m g b.i.d. Physical Examination: General: He is intubated. O2 saturation adequate. Sinus rhythm. Vital Signs: Blood pressure is 96/64, unresponsive to command. HEENT: Negative. Neck: Supple with no bruits. Chest: Reveals rales bilaterally at the base. Cardiac: Revealed tachycardia with an S3 gallop. Abdomen: Benign. Extremities: Revealed no clubbing, cyanosis, or edema. Diagnostic Data: As stated earlier. Impression And Plan: Status post cardiac arrest with asystole, status post epinephrine. Pacemaker i s functioning normally, now is back in normal rhythm, intubated with adequate O2 saturations, normal blood pressure, sinus rhythm on dopamine. He is off any sedatives. Mental status still blunted. Ne urology is involved. I think we will need to continue his present regimen as it is. Nephrology cons ultation, neurology consultation, and pulmonary consultation has been obtained. I think a CT scan in the morning and an EEG is added before making any final decision regarding ventilatory support or wi thdrawal of support. He is do not resuscitate. His other problems are multiple and obviously includ es renal failure on dialysis. He received dialysis yesterday and about a liter of fluid withdrawn. He still sounds wet and may need more dialysis today. I will leave that up to Nephrology. He has an ejection fraction of 19%. Another echocardiogram is pending today. He has a history of CAD, VT, at rial fibrillation, hypertension, dyslipidemia, history of TIA, history of renal artery stenosis and p acemaker, those issues are stable at this point. The case was discussed with Mr. Varghese and Dr. Elliott and I will continue to follow the patient. GIO/DAWIT Voice ID: [id number] Report ID: [id number]
--- NOTE | 2019-09-06 12:18 | P.CNS ---
Date of Consult: 09/06/19 Primary Care Provider: Dr. Morales Chief Complaint: Syncope, Cardiac arrest History of Present Illness: Patient is 73 years of age multiple medical problems and stage renal disease severe congestive heart failure coronary artery disease admitted with cardiac a rrest currently CPR was done for considerable time this currently hemodynamically stable may be minimally responsive very brisk plantar reflexes downward gaze on his eyes Allergies codeine Adverse Reaction (Mild, Verified 07/11/19 22:10) Nausea/Vomiting Home Medications: Amiodarone HCl [Cordarone*] 200 mg PO DAILY 06/29/19 Atorvastatin Calcium [Lipitor] 80 mg PO BEDTIME 06/29/19 Cholecalciferol (Vitamin D3) [Vitamin D3] 1 cap PO DAILY 06/29/19 Clopidogrel Bisulfate [Plavix] 75 mg PO DAILY 06/29/19 Ezetimibe 10 mg PO BEDTIME 06/29/19 Famotidine 40 mg PO BEDTIME 06/29/19 Nitroglycerin [Nitrostat*] 0.4 mg SL SEECOM 06/29/19 [place]-3/Dha/Epa/Fish Oil [Fish Oil 1,000 mg Softgel] 2 each PO DAILY 06/29/19 Tamsulosin [Flomax*] 2 cap PO DAILY 06/29/19 Trazodone [Desyrel*] 50 mg PO BEDTIME 06/29/19 Calcitrol [Rocaltrol*] 0.5 mcg PO DAILY 07/12/19 Furosemide [Lasix] 40 mg PO BID 07/12/19 Sertraline HCl 1 tab PO DAILY 07/12/19 Apixaban [Eliquis *] 2.5 mg PO BID 09/05/19 Cyanocobalamin [Vitamin B-12*] 1,000 mcg PO DAILY 09/05/19 Fluticasone Propionate [24 Hour Allergy] 1 spray ANTONIETTA BID 09/05/19 Gabapentin 100 mg PO TID 09/05/19 Omeprazole [Prilosec] 40 mg PO DAILY 09/05/19 - Past Medical/Surgical History Diabetic: No -: HTN -: BPH -: CAD, [place], Stent to the heart, Cardiology-Dr. 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 - Family History Mother Medical History: Hypertension, Kidney disease Father Medical History: Heart disease, Hypertension, Kidney disease Notes: hx: HD Sister Medical History: Diabetes - Social History Smoking Status: Unknown if ever smoked Alcohol use: Yes CD- Drugs: No Caffeine use: Yes Place of Residence: Home Review of Systems is unable to be obtained Physical Examination Temp Pulse Resp BP Pulse Ox 99.2 F 80 16 105/74 100 09/06/19 10:00 09/06/19 10:00 09/06/19 10:00 09/06/19 10:00 09/06/19 10:00 General: Unresponsive, Comatose Respiratory: Clear to auscultation bilaterally, Crackles/rales (Crackles right worse than the left) Cardiovascular: No edema, Normal S1 S2 Neurological: Other (comatosed very brisk plantar reflexes his arms appeared to be extended) Laboratory Data (last 24 hrs) 09/05/19 12:55: PT 19.2 H, INR 1.64, APTT 46.7 H 09/05/19 12:55: WBC 5.4, Hgb 7.9 L*, Hct 26.7 L, Plt Count 192 09/05/19 12:55: Sodium 137, Potassium 4.1, BUN 68 H, Creatinine 4.63 H, Glucose 165 H, Total Bilirubin 0.5, AST 55 H, ALT 46, Alkaline Phosphatase 143 H, Amylase 31, Lipase 107 09/05/19 09:40: Troponin I 0.70 H* - Problems (1) Cardiopulmonary arrest Current Visit: Yes Status: Acute Plan: Patient is 73 years of age admitted with cardiac arrest and had another cautery of and appears to have some pulmonary edema patient is hemodynamically stable oxygenation satisfactory change him over to SIMV pressure support titrate sat to 95% head CT negative discuss with Nephrology will hold on dialysis is more awake, more responsive but tomorrow may resume firs want to withdraw care
--- NOTE | 2019-09-06 13:00 | PN ---
Date of Progress Note: 09/06/2019 Subjective: Patient was seen and examined at bedside. He is intubated. He is completely off sedati on. He does not have major response, but he is trying to move his extremities today. He also has a brisk plantar reflex. He has a mild gag reflex and also tries to swallow for me. Objective: Vital Signs: Have been reviewed. He is completely off pressors at this time. Blood pre ssure is stable. He is on ventilator with O2 saturation in the 90s with FiO2 of 60%. General: He appears intubated. HEENT: Atraumatic head. Lungs: Clear to auscultation anteriorly. Abdomen: Soft. Extremities: Showed no evidence of edema. Laboratory Data: Showing creatinine of 4.38, BUN of 53, sodium of 137, potassium of 4.1. CBC showin g hemoglobin of 8.2, hematocrit of 26.1, and platelet count of 166. Current Medications: Have been reviewed in detail. Impression: 1.End stage renal disease, currently has been started on dialysis. He only got 1 treatment, had car diac arrest during his first treatment. 2.Status post cardiac arrest, concern for anoxic brain injury. The patient is being evaluated with EEG and he is completely off sedation. We will try to monitor his neurological status and monitor cl osely. 3.Anemia secondary to end stage renal disease. Patient received some blood transfusion and also rec eived an Epogen. His hemoglobin is stable at this time. 4.Mild pulmonary edema. Patient has mild pulmonary edema. We will plan for dialysis tomorrow and t ry to get some ultrafiltration off and if he is neurologically responding, we will probably try extub ation and monitor him closely. Plan: Overall the patient is hemodynamically more stable today and we will continue to monitor him c losely. We will plan for dialysis tomorrow and plan for ultrafiltration and extubation if possible. We are continuing to monitor for neurological recovery at this time. Plan was discussed with enoch guerrero's nurse at bedside and also discussed with Dr. Steinberg. VV/MODL Voice ID: [id number] Report ID: [id number]
--- NOTE | 2019-09-06 16:43 | P.PN ---
Subjective Date of Service: 09/06/19 Primary Care Provider: Dr. Morales Chief Complaint: Syncope, Cardiac arrest Subjective: Other (Patient intubated. Still without sedation medication with minimal response.) Physical Examination - Vital Signs Temperature: 99.3 F Blood Pressure: 117/74 Pulse: 80 Respirations: 16 Pulse Ox (%): 100 - Physical Exam General: Other (Patient intubated.) Respiratory: Crackles/rales Cardiovascular: Normal pulses, Regular rate/rhythm Neurological: Other (Up going reflexes to the feet. Minimal response to pain) - Studies Laboratory Data (last 24 hrs) 09/05/19 12:55: Sodium 137, Potassium 4.1, BUN 68 H, Creatinine 4.63 H, Glucose 165 H, Total Bilirubin 0.5, AST 55 H, ALT 46, Alkaline Phosphatase 143 H, Amylase 31, Lipase 107 09/05/19 09:40: Troponin I 0.70 H* Medications List Reviewed: Yes Assessment & Plan Discharge Plan: Home Plan to discharge in: Greater than 2 days Physician Review Additional Text: Impression: Syncope with cardiac arrest now with acute respiratory failure with cardiogenic shock complicated with acute on chronic systolic CHF, CAD End-stage renal disease on hemodialysis Anemia of chronic disease History of atrial fibrillation Plan: Syncope with cardiac arrest now with acute respiratory failure with cardiogenic shock complicated with acute on chronic systolic CHF, CAD: The patient remained stable in ICU. Continue current medications. Prior ejection fraction 19%. Case discussed with pulmonology, nephrology and cardiology. Patient with poor prognosis. Case also discuss with Neurology. EEG moderate to severe abnormality. Will continue to reassess. Family considering withdrawal of care if no significant change or improvement. Patient remains DNR. Will continue mo nitor closely. Patient received dialysis yesterday. Will discuss further with specialty team. Plan of care discussed with family. End-stage renal disease on hemodialysis: Continue with recommendations by nephrology. Patient will likely require dialysis today. Anemia of chronic disease: Will monitor closely. Patient may require transfusion. History of atrial fibrillation: Need to obtain and restart home medication. Time Spent Managing Pts Care (In Minutes): 55
[2019-09-06] MEDS ORDERED: EPINEPHrine 1 MG/10 ML SYR IV ONE (17:53)
[2019-09-06] MEDS ORDERED: NA CHLORIDE 0.9% 1,000 ML IV ONE (17:53)
--- NOTE | 2019-09-06 18:34 | EKG ---
Test Date: 2019-09-05 Test Time: 12:53:09 Film [place]: PH MEASUREMENT RESULTS: Intervals: Rate: 80 MO: QRSD: 130 QT: 402 QTc: 463 [place]: P: MO: QRS: 80 T: 252 INTERPRETIVE STATEMENTS: nsr Nonspecific intraventricular block Nonspecific T wave abnormality Abnormal ECG Compared to ECG 07/11/2019 15:07:29 T-wave abnormality now present Atrial-paced complex(es) or rhythm no longer present ST (T wave) deviation no longer present Possible ischemia no longer present Prolonged QT interval no longer present Electronically Signed On 09-06-19 18:32:01 CDT by John Garber
--- NOTE | 2019-09-06 23:12 | CON ---
Reason For Consultation: Unresponsiveness after syncope and cardiac arrest. History Of Present Illness: Mr. Varghese is a 73-year-old patient with end-stage renal disease, newly diagnosed, on hemodialysis, systolic congestive heart failure with low ejection fraction of 90%, coronary artery disease, hypertension, who was having dialysis on the when he suddenly had a severe drop in blood pressure and had coding. He was resuscitated with 1 round of epinephrine; however, he was found to be pulseless for some time. After intubation, pH recorded at 7.22. Since his intubation, the patient has had some ability to breathe over the ventilator. He does appear to move the left more than right lower extremity, but no movement of the upper extremities. He does seem to grimace when suctioned, but does not respond to verbal stimulation or tactile stimulation of the upper extremities. Family members were at the bedside at the time of my evaluation, that is his and son, and they attested that he did not respond to them verbally or with stimulation of the upper extremities, but noted that he would withdraw his foot on either side locally to stimulation and the toes were upgoing. His head CT scan showed no acute ischemic or hemorrhagic change. His EEG was remarkable for [id number] diffusely slow background that was minimally reactive to external stimulation. The EEG did have episodes of generalized attenuation from 1 to 4 seconds; however, it is not classic burst suppression pattern. His most recent chest x-ray showed bilateral pulmonary opacities, slightly progressive on the right from on 09/05, compared to one done earlier in the day. Heart was moderately enlarged and dual-lead pacemaker device was present and his ET tube was above the scarlet. Enteric tube was in the distal esophagus and there was a right-sided venous catheter that was in position. His laboratory studies did show a very low hemoglobin of 7.9, white blood cell count 6.1. His INR was 1.64. Most recent blood gas showed pH of 7.47, and chemistries showed lactic acid being elevated yesterday to 4.6 as he was going through his resuscitation. His creatine kinase did increase to 485, CK-MB to 9.6, troponin to 0.61. Procalcitonin remained normal at 0.5. Creatinine was 4.63. Past Medical History: As indicated, in addition to myocardial infarction and cardiac stents performed by Dr. Baradhi, benign prostatic hypertrophy, carotid occlusive disease with stenting, renal artery stenosis with stenting, dyslipidemia, transient ischemic attack, chronic insomnia, alcohol abuse. Procedures: Carotid stent, coronary artery stents, renal artery stent. Social History: Patient is 31 years. Has 3 children. 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 Family History: Positive for kidney disease and hypertension in mother and father, with heart disease as well in father. Sister with diabetes. Social History: Patient does drink alcohol. No caffeine use. Resides at home with family. Allergies: CODEINE CAUSES NAUSEA. Medications At Home: Cordarone 200 mg daily, Lipitor 80 mg at bedtime, vitamin D3 2000 units daily, Plavix 75 mg daily, magnesium 400 mg daily, ezetimibe 10 mg at bedtime, famotidine 10 mg at bedtime, folic acid 0.4 mg daily, Reglan 10 mg 3 times daily, metoprolol 25 mg twice daily, Nitrostat 0.4 mg sublingual as needed, omega-3 fish oil 1000 mg soft gel daily, Flomax 0.4 mg daily, Desyrel 50 mg at bedtime, Rocaltrol 0.5 mcg daily, Lasix 40 mg daily, sertraline 25 mg at bedtime, Eliquis 2.5 mg twice daily. Review of Systems: Not possible. Patient is intubated. Physical Examination: Vital Signs: Blood pressure 117/74, pulse 80, respiratory rate 16, temperature 99.3, oxygen saturation 100%. Patient is intubated. Weight 168 pounds, height 5 feet 9 inches, BMI 24.9. Mr. Varghese, as indicated, is intubated. He has not had sedation since his intubation 24 hours ago. He does have some spontaneous movement of the left more than right lower extremity. No spontaneous movement noted in the upper extremities. He does have some grimacing type actions in the face and forehead and while suctioning, he did have a strong gag reflex. He did locally withdraw to stimulation in the lower extremities, but not in the upper extremities. He did not respond to verbal stimulation or tactile stimulation in the upper extremities. His tone is normal in upper and lower extremities. Unable to assess sensory examination. Reflexes are symmetric. Unable to assess gait, coordination, or strength. Assessment: Mr. Varghese is a 73-year-old patient with hypoxic ischemic encephalopathy, status post cardiac arrest with hypoperfusion and hypo- oxygenation. PH after resuscitation 7.22 was predictive of fairly poor prognosis. His EEG was diffusely slow and that also at this stage, which is about 24 hours out, is not a very good prognosis. However, it does not suggest also that the patient does not have brain activity, which he obviously has. Head CT scan shows no acute changes. No loss of rehman-white junction. Plan: 1. Continue supportive care. 2. Repeat EEG in [address] scan repeat in 24 hours. 4. Continue supportive care. 5. The patient will probably require long-term support. This was discussed with the family, the options including the patient actually not wanting to be intubated or having heroic measures to sustain life. He had indicated he did not want them, but did not sign paperwork prior to his arrest, but the family will discuss the possibility of withdrawing care depending on how he does in the next 24-48 hours. We may repeat EEG and head CT scan at that time, and if unchanged, we will again discuss with the patient's family the possibility of withdrawing care. If he actually improves, obviously that will not be needed. 6. Patient will be seen again once the studies are done in about 48 hours. GINGER/DAWIT Voice ID: [id number] Report ID: [id number] SHAWN
[2019-09-07 06:26] LABS: Absolute Lymphocytes (CBC) 0.5 K/uL (0.7-4.9); Basophils % 0.2 % (0-1.3); Hematocrit 26.9 % (39.6-49.0); Lymphocytes % 6.4 % (15.3-44.8); MPV 8.6 fL (7.6-11.3); RBC Red Blood Cell Count 3.44 M/uL (4.33-5.43)
[2019-09-07 06:48] LABS: Albumin 2.7 g/dL (3.4-5.0); Bilirubin Total 1.2 mg/dL (0.2-1.0); Magnesium 2.4 mg/dL (1.8-2.4); Potassium 4.5 mmol/L (3.5-5.1); Protein, Total 6.7 g/dL (6.4-8.2)
[2019-09-07] MEDS ORDERED: VANCOMYCIN/NS 1 gm 1 GM/250 ML BAG IV ONE (08:00)
[2019-09-07] MEDS ORDERED: VANCOMYCIN 1 GM in NA CHLORIDE 0.9% 500 ML IVPB ONE (08:00)
--- NOTE | 2019-09-07 08:11 | ECHO ---
HEIGHT: 5 ft 9 in WEIGHT: 164 lb 7 oz DATE OF STUDY: 09/06/[address]: Chan Elliott DO 2-DIMENSIONAL: YES M.MODE: YES DOPPLER: YES COLOR FLOW: YES TDS: PORTABLE: YES DEFINITY: BUBBLE STUDY: DIAGNOSIS: CONGESTIVE HEART FAILURE, CARDIAC ARREST CARDIAC HISTORY: CATHERIZATION: YES SURGERY: YES PROSTHETIC VALVE: NO PACEMAKER: YES MEASUREMENTS (cm) DIASTOLIC (NORMALS) SYSTOLIC (NORMALS) IVSd 1.1 (0.6-1.2) LA Diam 3.7 (1.9-4.0) LVEF 16% LVIDd 5.1 (3.5-5.7) LVIDs 4.7 (2.0-3.5) %FS 7% LVPWd 1.0 (0.6-1.2) Ao Diam 3.4 (2.0-3.7) 2 DIMENSIONAL ASSESSMENT: RIGHT ATRIUM: NORMAL LEFT ATRIUM: NORMAL RIGHT VENTRICLE: NORMAL LEFT VENTRICLE: NORMAL SIZE TRICUSPID VALVE: NORMAL MITRAL VALVE: NORMAL PULMONIC VALVE: NORMAL AORTIC VALVE: NORMAL PERICARDIAL EFFUSION: NONE AORTIC ROOT: NORMAL LEFT VENTRICULAR WALL MOTION: SEVERE GLOBAL HYPOKINESIS DOPPLER/COLOR FLOW: NORMAL COMMENTS: SEVERE GLOBAL HYPOKINESIS. EJECTION FRACTION 16%. NO THROMBUS. NO EFFUSION. TECHNOLOGIST: ROWAN HOBSON
--- NOTE | 2019-09-07 08:19 | EEG ---
CHART: [id number] TEST ID#: [id number] DATE OF STUDY: 09/06/2019 THE EEG WAS RECORDED PORTABLE IN THE ICU ON A 14 CHANNEL MACHINE. ELECTRODES WERE APPLIED IN THE USUAL MANNER USING THE INTERNATIONAL 10-20 SYSTEM. THE WAKING BACKGROUND RHYTHM IN THIS RECORD CONSISTS OF VERY PORLY DEVELOPED AND POORLY ORGANIZED WAVES OF 4-5 HZ., IN A WIDE DISTRIBUTION WHICH DO NOT ATTENUATE NORMALLY WITH EYE OPENING. EPISODES OF GENERALZIED VOLTAGE ATTENUATION LAST 1-4 SECONDS SEPARATE INTERVALS OF MODERATE VOLTAGE 3-5 ACTIVITY DIFFUSELY EXPRESSED IN ALL REGIONS. SPONTANEOUS CHEWING IS ASSOCIATED WITH MUSCLE ARTIFACT. THERE ARE NO FOCAL OR LATERALIZING FEATURES. NO EPILEPTIFORM ACTIVITY APPEARS. SLEEP DID NOT OCCUR. HYPERVENTILATION WAS NOT PERFORMED. PHOTIC STIMULATION PRODUCED WAS NOT PERFORMED. IMPRESSION: THIS IS A MODERATELY TO SEVERELY ABNORMAL ROUTINE AWAKE EEG DUE TO THE PRESENCE OF MODERATELY TO SEVERELY SLOW BACKGROUND. MINIMAL REACTIVITY TO EXTERNAL STIMULATION IS NOTED IN THE STUDY. THESE ARE NON-SPECIFIC FINDINGS INDICATING THE PRESENCE OF A MODERATE TO SEVERE DIFFUSE DISTURBANCE IN CEREBRAL ACTIVITY DUE TO HYPOXIC/ ISCHEMIC OR TOXIC/METABOLIC ETIOLOGIES.
[2019-09-07] MEDS: HEPARIN 5000 UNIT/ML 1 ML VIAL SQ SCH ×2 (08:48→21:17)
[2019-09-07] MEDS: FAMOTIDINE 20 MG/2 ML VIAL IV SCH (08:48)
--- NOTE | 2019-09-07 10:59 | P.PN ---
Subjective Date of Service: 09/07/19 Primary Care Provider: Dr. Morales Chief Complaint: Syncope, Cardiac arrest Subjective: Other (Patient moving extremities spontaneously. Still no significant response to voice or pain.) Physical Examination - Vital Signs Temperature: 99.3 F Blood Pressure: 135/87 Pulse: 80 Respirations: 17 Pulse Ox (%): 100 - Physical Exam General: Other (Patient without sedation. Still no response to pain or voice. Patient spontaneously moves extremities.) Neck: Supple Respiratory: Diminished (To the bases) Cardiovascular: Normal pulses, Regular rate/rhythm Gastrointestinal: Normal bowel sounds, Soft and benign, Non-distended Neurological: Normal strength at 5/5 x4 extr, Abnormal affect - Studies Medications List Reviewed: Yes Assessment & Plan Discharge Plan: Home Plan to discharge in: Greater than 2 days Physician Review Additional Text: Impression: Syncope with cardiac arrest now with acute respiratory failure with cardiogenic shock complicated with acute on chronic systolic CHF, CAD End-stage renal disease on hemodialysis Anemia of chronic disease History of atrial fibrillation Plan: Syncope with cardiac arrest now with acute respiratory failure with cardiogenic shock complicated with acute on chronic systolic CHF, CAD: Patient remains in ICU. Patient able to move extremities and body. But still no response to pain or voice. Case discussed at length with Neurology, cardiology and nephrology yesterday. Also discuss with pulmonology. EEG showed moderate to severe abnormality. Will need to continue to monitor closely. Ejection fraction around 19%. Spoke with family about plan of care. Will continue to monitor over the next 24 hr. Will extubate once more alert. If his current condition continues or declines family is thinking about hospice and withdrawal of care. Patient remains DNR. Will discuss further with specialty team concerning his current issues. Patient will get dialysis today. Will Re discuss with Neurology, Cardiology and pulmonology as well. End-stage renal disease on hemodialysis: Continue with recommendations by nephrology. Patient will likely require dialysis today. Anemia of chronic disease: Will monitor closely. Patient may require transfusion. History of atrial fibrillation: Need to obtain and restart home medication. Time Spent Managing Pts Care (In Minutes): 55
--- NOTE | 2019-09-07 22:25 | P.PN ---
Date of Service: 09/07/19 Vital Signs Temp Pulse Resp BP Pulse Ox 99.2 F 80 16 127/80 98 09/07/19 20:00 09/07/19 21:00 09/07/19 21:00 09/07/19 21:00 09/07/19 21:00 Medications Acetaminophen (Tylenol -Extra Strength) 500 mg PO Q4HP PRN PRN Reason: TEMP > 101' F Stop: 10/05/19 15:17 Acetaminophen (Tylenol Suppository) 650 mg [place] Q6HP PRN PRN Reason: TEMP > 101' F Stop: 10/05/19 15:17 Famotidine (Pepcid) 20 mg IV DAILY [facility]; Protocol Stop: 10/07/19 09:01 Last Admin: 09/07/19 08:48 Dose: 20 mg Documented by: Fentanyl Citrate (Sublimaze) 25 mcg IV Q4HP PRN PRN Reason: Pain scale 8-10 (Severe) Stop: 10/05/19 20:40 Haloperidol Lactate (Haldol) 2 mg IV Q4HP PRN PRN Reason: AGITATION Stop: 10/05/19 20:40 Heparin Sodium (Porcine) (Heparin 5,000 Units/Ml) 5,000 unit SQ Q12HR YAJAIRA Stop: 10/05/19 21:01 Last Admin: 09/07/19 21:17 Dose: 5,000 unit Documented by: Heparin Sodium (Porcine) (Heparin 1,000 Units/Ml) 6,000 unit IV EVERY HD PRN PRN Reason: AFTER EACH Stop: 10/05/19 18:22 Last Admin: 09/05/19 20:53 Dose: 6,000 unit Documented by: Dopamine HCl/Dextrose (Dopamine 400 Mg/250 Ml D5w (Premix)) 400 mg in 250 mls @ 0 mls/hr IV PRN PRN; Protocol PRN Reason: Hemodynamic Parameters Stop: 10/05/19 15:17 Albumin Human (Albumin 25%) 50 mls @ 100 mls/hr IV EVERY HD [facility] Stop: 10/05/19 19:01 Sodium Chloride (Sodium Chloride) 250 mls @ 999 mls/hr IV Q15M PRN PRN Reason: HYPOTENSION Stop: 10/05/19 20:40 Lorazepam (Ativan) 2 mg IV Q2HP PRN PRN Reason: SEDATION Stop: 10/05/19 20:40 Mannitol (Mannitol 12.5 Gm/50 Ml Vial) 12.5 gm IV EVERY HD PRN PRN Reason: for BP support at HD Stop: 10/05/19 18:22 Midazolam HCl (Versed) 2 mg IV Q2HP PRN PRN Reason: SEDATION Stop: 10/05/19 20:40 Ondansetron HCl (Zofran) 4 mg IV Q6HP PRN PRN Reason: NAUSEA / VOMITING Stop: 10/05/19 15:17 Sodium Chloride (Normal Saline Flush) 10 ml IV BID YAJAIRA Stop: 10/05/19 21:01 Last Admin: 09/07/19 21:17 Dose: 10 ml Documented by: Microbiology Results 09/05/19 12:55 Blood - Blood Aerobic Blood Culture - Preliminary 09/05/19 12:55 Blood - Blood Blood Culture Gram Stain - Preliminary 09/05/19 12:55 Blood - Blood Anaerobic Blood Culture - Preliminary No growth in 24 hours. 09/05/19 13:10 Blood - Blood Aerobic Blood Culture - Preliminary No growth in 24 hours. 09/05/19 13:10 Blood - Blood Anaerobic Blood Culture - Preliminary No growth in 24 hours. Assessment/ Plan: Nephrology Limited IH/ ROS due to AMS. CPS stable without CP. Acute respiratory failure sp intubation. Case reviewed with the family at the bedside. Vitals, medications, blood work and imaging reviewed in the chart. General: Unresponsive HEENT: Atraumatic, Normocephalic, Mucous membr. moist/pink Neck: Supple, JVD distended Respiratory: Normal air movement Cardiovascular: Regular rate/rhythm, Edema Gastrointestinal: Soft and benign, Non-distended Musculoskeletal: No clubbing, No contractures Integumentary: No rashes, No cyanosis Neurological: Abnormal speech, Abnormal affect Urinary: Dialysis catheter Laboratory Data (last 24 hrs) 09/05/19 12:55: PT 19.2 H, INR 1.64, APTT 46.7 H 09/05/19 12:55: WBC 5.4, Hgb 7.9 L*, Hct 26.7 L, Plt Count 192 09/05/19 12:55: Sodium 137, Potassium 4.1, BUN 68 H, Creatinine 4.63 H, Glucose 165 H, Total Bilirubin 0.5, AST 55 H, ALT 46, Alkaline Phosphatase 143 H, Amylase 31, Lipase 107 Imagings Data: EXAM DESCRIPTION: RAD - Chest Single View - 09/05/2019 1:28 pm CLINICAL HISTORY: CPR Chest pain. COMPARISON: Chest Pa And Lat (2 Views) dated 09/01/2019; Chest Single View dated 07/11/2019; Chest Pa And Lat (2 Views) dated 07/02/2019; Chest Single View dated 06/30/2019 FINDINGS: Portable technique limits examination quality. Moderate bilateral pulmonary opacities are present with a small right pleural effusion, likely representing pulmonary edema or pneumonia. The heart is moderately enlarged in size with sternotomy wires present. Pacemaker device is present. ET tube tip is above the scarlet. Right-sided venous catheter has tip in the SVC. Enteric tube descends into the upper abdomen. Conclusions/Impression: A/ ESRD. First HD 09-05-19. Acidosis. Hypocalcemia. HTN complicated by hypotension. Systolic CHF, A/C. CAD/ PAD with YUE. Anemia in CKD. Acute hypoxic respiratory failure. Cardiac arrest with possible anoxic brain injury. P/ Continue current POC and Medications. Acute HD as ordered today. Pressor therapy as needed. Ventilatory support as ordered. Possible extubation soon. Follow up with neurology. EEG results reviewed. No NSAIDs. AM labs. Daily weight. Case reviewed with Dr. Elliott. HD reviewed with the HD nurse during acute HD. Greater than 30min patient care.
[2019-09-07] MEDS: FENTANYL CITR 100 MCG/2 ML IV PRN (23:17)
[2019-09-08 05:30] LABS: Absolute Lymphocytes (CBC) 0.6 K/uL (0.7-4.9); Hematocrit 26.2 % (39.6-49.0); Lymphocytes % 8.8 % (15.3-44.8); MPV 8.5 fL (7.6-11.3); RBC Red Blood Cell Count 3.33 M/uL (4.33-5.43)
[2019-09-08 05:50] LABS: Albumin 2.6 g/dL (3.4-5.0); Bilirubin Total 1.6 mg/dL (0.2-1.0); Magnesium 2.4 mg/dL (1.8-2.4); Potassium 4.7 mmol/L (3.5-5.1); Protein, Total 6.7 g/dL (6.4-8.2)
[2019-09-08] MEDS: HEPARIN 5000 UNIT/ML 1 ML VIAL SQ SCH ×2 (08:26→21:03)
[2019-09-08] MEDS: FAMOTIDINE 20 MG/2 ML VIAL IV SCH (08:27)
[2019-09-08] MEDS: LORazepam 2 MG/ML VIAL IV PRN ×2 (10:53→16:54)
--- NOTE | 2019-09-08 11:35 | RAD REPORT ---
EXAM DESCRIPTION: [place] Single View09/08/2019 11:22 am CLINICAL HISTORY: Shortness of breath COMPARISON: September 06, 2019 FINDINGS: Postsurgical changes involve the chest. Endotracheal tube has its tip well above the scarlet. Central venous line has its tip in the superior vena cava. Mild to moderate bilateral pulmonary opacities. Small to moderate right pleural effusion. Heart remai ns enlarged. Pacemaker leads in place IMPRESSION: Mild to moderate CHF minimally improved from the prior exam
--- NOTE | 2019-09-08 11:58 | P.PN ---
Subjective Date of Service: 09/08/19 Primary Care Provider: Dr. Morales Chief Complaint: Syncope, Cardiac arrest Subjective: Improving (Patient is more alert is opens his eyes moving his extremity agitated) Review of Systems is unable to be obtained Physical Examination - Vital Signs Temperature: 98.1 F Blood Pressure: 126/84 Pulse: 80 Respirations: 18 Pulse Ox (%): 94 - Physical Exam General: Alert Respiratory: Clear to auscultation bilaterally, Diminished (Diminished on the right side) Cardiovascular: No edema, Regular rate/rhythm - Studies Microbiology Data (last 24 hrs): 09/05/19 12:55 Blood - Blood Blood Culture Gram Stain - Final Medications List Reviewed: Yes Assessment & Plan - Problems (Diagnosis) (1) Cardiopulmonary arrest Current Visit: Yes Status: Acute Plan: Patient is status post cardiac arrest does open his eyes 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
[2019-09-08] MEDS ORDERED: EPOETIN ALFA-EPBX 10,000 UNIT/ML VIAL SQ ONE (12:15)
[2019-09-08 14:48] LABS: HBsAG Nonreactive (Nonreactive)
--- NOTE | 2019-09-08 15:09 | P.PN ---
Subjective Date of Service: 09/08/19 Primary Care Provider: Dr. Morales Chief Complaint: Syncope, Cardiac arrest Subjective: Other (Exam unchanged.) Physical Examination - Vital Signs Temperature: 99.1 F Blood Pressure: 122/86 Pulse: 80 Respirations: 15 Pulse Ox (%): 100 - Physical Exam General: Other (Patient moving around on his own but still no purposeful movement) Neck: Supple Respiratory: Crackles/rales Cardiovascular: Normal pulses, Regular rate/rhythm - Studies Microbiology Data (last 24 hrs): 09/05/19 12:55 Blood - Blood Blood Culture Gram Stain - Final Medications List Reviewed: Yes Assessment & Plan Discharge Plan: Other (Hospice likely) Plan to discharge in: 48 Hours Physician Review Additional Text: Impression: Syncope with cardiac arrest now with acute respiratory failure with cardiogenic shock complicated with acute on chronic systolic CHF, CAD End-stage renal disease on hemodialysis Anemia of chronic disease History of atrial fibrillation Plan: Syncope with cardiac arrest now with acute respiratory failure with cardiogenic shock complicated with acute on chronic systolic CHF, CAD: Patient remains in ICU. Patient able to move extremities and body. But still no response to pain or voice. No response to purpose. Case discussed with son. Case also discussed at length with Neurology, cardiology and nephrology yesterday. Still no significant change. Will need to discuss with family about plan of care. EEG done today. Will discuss further with Neurology concern EEG and likely outcome. Options include: Continue to monitor, consider withdrawal with hospice, or long-term acute care facility. Will discuss with family. End-stage renal disease on hemodialysis: Continue with recommendations by nephrology. Patient will likely require dialysis today again. Anemia of chronic disease: Will monitor closely. Patient may require transfusion. History of atrial fibrillation: Will monitor closely Time Spent Managing Pts Care (In Minutes): 55
[2019-09-08] MEDS: FENTANYL CITR 100 MCG/2 ML IV PRN ×2 (18:23→22:05)
--- NOTE | 2019-09-08 21:52 | P.PN ---
Date of Service: 09/08/19 Vital Signs Temp Pulse Resp BP Pulse Ox 98.4 F 79 15 119/74 100 09/08/19 20:00 09/08/19 20:00 09/08/19 20:00 09/08/19 20:00 09/08/19 20:00 Medications Acetaminophen (Tylenol -Extra Strength) 500 mg PO Q4HP PRN PRN Reason: TEMP > 101' F Stop: 10/05/19 15:17 Acetaminophen (Tylenol Suppository) 650 mg [place] Q6HP PRN PRN Reason: TEMP > 101' F Stop: 10/05/19 15:17 Famotidine (Pepcid) 20 mg IV DAILY [facility]; Protocol Stop: 10/07/19 09:01 Last Admin: 09/08/19 08:27 Dose: 20 mg Documented by: Fentanyl Citrate (Sublimaze) 25 mcg IV Q4HP PRN PRN Reason: Pain scale 8-10 (Severe) Stop: 10/05/19 20:40 Last Admin: 09/08/19 18:23 Dose: 25 mcg Documented by: Haloperidol Lactate (Haldol) 2 mg IV Q4HP PRN PRN Reason: AGITATION Stop: 10/05/19 20:40 Heparin Sodium (Porcine) (Heparin 5,000 Units/Ml) 5,000 unit SQ Q12HR [facility] Stop: 10/05/19 21:01 Last Admin: 09/08/19 21:03 Dose: 5,000 unit Documented by: Heparin Sodium (Porcine) (Heparin 1,000 Units/Ml) 6,000 unit IV EVERY HD PRN PRN Reason: AFTER EACH Stop: 10/05/19 18:22 Last Admin: 09/08/19 18:08 Dose: 6,000 unit Documented by: Dopamine HCl/Dextrose (Dopamine 400 Mg/250 Ml D5w (Premix)) 400 mg in 250 mls @ 0 mls/hr IV PRN PRN; Protocol PRN Reason: Hemodynamic Parameters Stop: 10/05/19 15:17 Albumin Human (Albumin 25%) 50 mls @ 100 mls/hr IV EVERY HD [facility] Stop: 10/05/19 19:01 Sodium Chloride (Sodium Chloride) 250 mls @ 999 mls/hr IV Q15M PRN PRN Reason: HYPOTENSION Stop: 10/05/19 20:40 Lorazepam (Ativan) 2 mg IV Q2HP PRN PRN Reason: SEDATION Stop: 10/05/19 20:40 Last Admin: 09/08/19 16:54 Dose: 2 mg Documented by: Mannitol (Mannitol 12.5 Gm/50 Ml Vial) 12.5 gm IV EVERY HD PRN PRN Reason: for BP support at HD Stop: 10/05/19 18:22 Midazolam HCl (Versed) 2 mg IV Q2HP PRN PRN Reason: SEDATION Stop: 10/05/19 20:40 Ondansetron HCl (Zofran) 4 mg IV Q6HP PRN PRN Reason: NAUSEA / VOMITING Stop: 10/05/19 15:17 Last Admin: 09/08/19 18:23 Dose: 4 mg Documented by: Sodium Chloride (Normal Saline Flush) 10 ml IV BID YAJAIRA Stop: 10/05/19 21:01 Last Admin: 09/08/19 21:03 Dose: 10 ml Documented by: Microbiology Results 09/05/19 12:55 Blood - Blood Aerobic Blood Culture - Preliminary 09/05/19 12:55 Blood - Blood Blood Culture Gram Stain - Final 09/05/19 12:55 Blood - Blood Anaerobic Blood Culture - Preliminary No growth in 24 hours. 09/05/19 13:10 Blood - Blood Aerobic Blood Culture - Preliminary No growth in 24 hours. 09/05/19 13:10 Blood - Blood Anaerobic Blood Culture - Preliminary No growth in 24 hours. Assessment/ Plan: Nephrology Limited IH/ ROS due to AMS. CPS stable. Acute respiratory failure sp intubation. No acute events overnight. Tolerated HD yesterday well. Vitals, medications, blood work and imaging reviewed in the chart. General: Unresponsive HEENT: Atraumatic, Normocephalic, Mucous membr. moist/pink Neck: Supple, JVD distended Respiratory: Normal air movement Cardiovascular: Regular rate/rhythm, Edema Gastrointestinal: Soft and benign, Non-distended Musculoskeletal: No clubbing, No contractures Integumentary: No rashes, No cyanosis Neurological: Abnormal speech, Abnormal affect Urinary: Dialysis catheter Laboratory Data (last 24 hrs) 09/05/19 12:55: PT 19.2 H, INR 1.64, APTT 46.7 H 09/05/19 12:55: WBC 5.4, Hgb 7.9 L*, Hct 26.7 L, Plt Count 192 09/05/19 12:55: Sodium 137, Potassium 4.1, BUN 68 H, Creatinine 4.63 H, Glucose 165 H, Total Bilirubin 0.5, AST 55 H, ALT 46, Alkaline Phosphatase 143 H, Amylase 31, Lipase 107 Imagings Data: EXAM DESCRIPTION: RAD - Chest Single View - 09/05/2019 1:28 pm CLINICAL HISTORY: CPR Chest pain. COMPARISON: Chest Pa And Lat (2 Views) dated 09/01/2019; Chest Single View dated 07/11/2019; Chest Pa And Lat (2 Views) dated 07/02/2019; Chest Single View dated 06/30/2019 FINDINGS: Portable technique limits examination quality. Moderate bilateral pulmonary opacities are present with a small right pleural effusion, likely representing pulmonary edema or pneumonia. The heart is moderately enlarged in size with sternotomy wires present. Pacemaker device is present. ET tube tip is above the scarlet. Right-sided venous catheter has tip in the SVC. Enteric tube descends into the upper abdomen. Conclusions/Impression: A/ ESRD. First HD 09-05-19. Acidosis. Hypocalcemia. HTN complicated by hypotension. Systolic CHF, A/C. CAD/ PAD with YUE. Anemia in CKD. Acute hypoxic respiratory failure. Cardiac arrest with possible anoxic brain injury. P/ Continue current POC and Medications. Acute HD as ordered today. Will reevaluate daily for dialysis need. Pressor therapy as needed. Ventilatory support as ordered. Possible extubation soon. Follow up with neurology. Repeat EEG pending. No NSAIDs. AM labs. Daily weight. Case reviewed with dialysis and ICU nursing. Greater than 30min patient care.
[2019-09-09] MEDS: FENTANYL CITR 100 MCG/2 ML IV PRN (03:01)
[2019-09-09 05:31] VITALS: BMI 23.3
[2019-09-09] MEDS: FAMOTIDINE 20 MG/2 ML VIAL IV SCH (09:17)
[2019-09-09] MEDS: HEPARIN 5000 UNIT/ML 1 ML VIAL SQ SCH ×2 (09:17→21:00)
--- NOTE | 2019-09-09 10:34 | P.PN ---
Subjective Date of Service: 09/09/19 Primary Care Provider: Dr. Morales Chief Complaint: Syncope, Cardiac arrest Subjective: Other (Patient intubated) Physical Examination - Vital Signs Temperature: 97.9 F Blood Pressure: 132/69 Pulse: 80 Respirations: 15 Pulse Ox (%): 94 - Physical Exam General: Other (Patient intubated. Still no purposeful response. Able to move extremities.) Respiratory: Clear to auscultation bilaterally Cardiovascular: Normal pulses, Regular rate/rhythm - Studies Microbiology Data (last 24 hrs): 09/05/19 12:55 Blood - Blood Aerobic Blood Culture - Final 09/05/19 12:55 Blood - Blood Blood Culture Gram Stain - Final Medications List Reviewed: Yes Assessment & Plan Discharge Plan: Other (Anticipate hospice) Plan to discharge in: 48 Hours Physician Review Additional Text: Impression: Syncope with cardiac arrest now with acute respiratory failure with cardiogenic shock complicated with acute on chronic systolic CHF, CAD End-stage renal disease on hemodialysis Anemia of chronic disease History of atrial fibrillation Plan: Syncope with cardiac arrest now with acute respiratory failure with cardiogenic shock complicated with acute on chronic systolic CHF, CAD: Patient remains in ICU. Still able to move extremities some body. Still no purposeful clear response to pain or voice. Case discussed at length with Neurology, cardiology and nephrology yesterday. Also spoke to family and . Family spoke to Cardiology for well. Family planning to withdrawal care and see how he does off ventilator. I anticipate no further intervention for pre intubation/CPR. Anticipate likely hospice. Await final decision with family. End-stage renal disease on hemodialysis: Continue with recommendations by nephrology. Patient received dialysis yesterday Anemia of chronic disease: Will monitor closely. History of atrial fibrillation: Will monitor closely Time Spent Managing Pts Care (In Minutes): 55
--- NOTE | 2019-09-09 11:10 | P.PN ---
Subjective Date of Service: 09/09/19 Primary Care Provider: Dr. Morales Chief Complaint: Syncope, Cardiac arrest Patient is agitated unresponsive Review of Systems is unable to be obtained Physical Examination - Vital Signs Temperature: 97.9 F Blood Pressure: 132/69 Pulse: 80 Respirations: 15 Pulse Ox (%): 94 - Physical Exam General: Unresponsive, Other (Patient is very agitated) HEENT: Abnormal EOM Neck: Supple Respiratory: Clear to auscultation bilaterally - Studies Microbiology Data (last 24 hrs): 09/05/19 12:55 Blood - Blood Aerobic Blood Culture - Final 09/05/19 12:55 Blood - Blood Blood Culture Gram Stain - Final Medications List Reviewed: Yes Assessment & Plan - Problems (Diagnosis) (1) Cardiopulmonary arrest Current Visit: Yes Status: Acute Plan: Patient is status post cardiac his arrest very poor ejection fraction [place] 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
[2019-09-09] MEDS: LORazepam 2 MG/ML VIAL IV PRN ×3 (13:16→22:15)
[2019-09-09] MEDS ORDERED: SCOPOLAMINE HYDROBROMIDE PATCH TD SCH (14:00)
--- NOTE | 2019-09-09 14:19 | P.PN ---
Subjective Date of Service: 09/09/19 Primary Care Provider: Dr. Morales Chief Complaint: Syncope, Cardiac arrest patient unresponsive. sbp in 120s and pulse in 80s. s/p cardiac arrest. family has reviewed with hospitalist. they dont want any cpr/recusitation and no further dialysis. goal is to keep patient comfortable. they understand that this may be the last chapter for patient's life. advised them about symptoms of uremia and they understand that it cant be predicted how long patient will take before moving on. they will communicate with nurse if there is any concern about patient being uncomfortable. patient looks comfortable currently. family does not want any dialysis. ok with nephrology signing off. Physical Examination - Vital Signs Temperature: 98.7 F Blood Pressure: 144/74 Pulse: 80 Respirations: 15 Pulse Ox (%): 100 - Studies Microbiology Data (last 24 hrs): 09/05/19 12:55 Blood - Blood Aerobic Blood Culture - Final 09/05/19 12:55 Blood - Blood Blood Culture Gram Stain - Final Medications List Reviewed: Yes Assessment & Plan Physician Review Additional Text: Impression: Syncope with cardiac arrest now with acute respiratory failure with cardiogenic shock complicated with acute on chronic systolic CHF, CAD End-stage renal disease on hemodialysis Anemia of chronic disease History of atrial fibrillation Plan: Syncope with cardiac arrest now with acute respiratory failure with cardiogenic shock complicated with acute on chronic systolic CHF, CAD: Patient remains in ICU. Still able to move extremities some body. Still no purposeful clear response to pain or voice. Case discussed at length with Neurology, cardiology and nephrology yesterday. Also spoke to family and . Family spoke to Cardiology for well. Family planning to withdrawal care and see how he does off ventilator. I anticipate no further intervention for pre intubation/CPR. Anticipate likely hospice. Await final decision with family. End-stage renal disease on hemodialysis: Continue with recommendations by nephrology. Patient received dialysis yesterday Anemia of chronic disease: Will monitor closely. History of atrial fibrillation: Will monitor closely
[2019-09-09] MEDS: MORPHINE 2 MG/ML SYR IV PRN ×2 (14:55→20:18)
[2019-09-10] MEDS: MORPHINE 2 MG/ML SYR IV PRN ×3 (01:15→15:20)
[2019-09-10] MEDS: LORazepam 2 MG/ML VIAL IV PRN (02:35)
[2019-09-10 04:26] VITALS: BP 125/68; TEMP 97.8
[2019-09-10] MEDS: HEPARIN 5000 UNIT/ML 1 ML VIAL SQ SCH (08:30)
[2019-09-10 08:46] VITALS: O2SAT 93
--- NOTE | 2019-09-10 14:27 | P.DS ---
Admission Date: 09/05/19 Discharge Date: 09/10/19 Primary Care Provider: Dr. Morales Disposition: HOSPICE-HOME Discharge Condition: GOOD Reason for Admission: Syncope, Cardiac arrest Consultations: Cardiology-Dr. Garber Nephrology-Dr. Morales Pulmonary-Dr. Herman Neurology-Dr. Kim Procedures: CXR: FINDINGS: Postsurgical changes involve the chest. Endotracheal tube has its tip well above the scarlet. Central venous line has its tip in the superior vena cava. Mild to moderate bilateral pulmonary opacities. Small to moderate right pleural effusion. Heart remains enlarged. Pacemaker leads in place IMPRESSION: Mild to moderate CHF minimally improved from the prior exam CT Head: FINDINGS: No intracranial hemorrhage, hydrocephalus or extra-axial fluid collection.Mild generalized brain atrophy is present with moderate periventricular and deep white matter chronic microvascular ischemic changes.No areas of brain edema or evidence of midline shift. The paranasal sinuses and mastoids are clear. The calvarium is intact. IMPRESSION: No acute intracranial abnormality. ECHO: Ejection fraction 16% LEFT VENTRICULAR WALL MOTION: SEVERE GLOBAL HYPOKINESIS DOPPLER/COLOR FLOW: NORMAL COMMENTS: SEVERE GLOBAL HYPOKINESIS. EJECTION FRACTION 16%. NO THROMBUS. NO EFFUSION. EEG: IMPRESSION: THIS IS A MODERATELY TO SEVERELY ABNORMAL ROUTINE AWAKE EEG DUE TO THE PRESENCE OF MODERATELY TO SEVERELY SLOW BACKGROUND. MINIMAL REACTIVITY TO EXTERNAL STIMULATION IS NOTED IN THE STUDY. THESE ARE NON-SPECIFIC FINDINGS INDICATING THE PRESENCE OF A MODERATE TO SEVERE DIFFUSE DISTURBANCE IN CEREBRAL ACTIVITY DUE TO HYPOXIC/ ISCHEMIC OR TOXIC/METABOLIC ETIOLOGIES Medical Problem List: Syncope with cardiac arrest now with acute respiratory failure with cardiogenic shock complicated with acute on chronic systolic CHF, CAD Encephalopathy related to above End-stage renal disease on hemodialysis Anemia of chronic disease History of atrial fibrillation Brief History of Present Illness: 73-year-old male with multiple medical problems including end-stage renal disease on hemodialysis, systolic congestive heart failure with ejection fraction 19%, CAD, hypertension. Recently in May patient had heart catheterization. Right Coronary had ostial subtotal stenosis. His LAD stent. The diagonal branch from the stented portion low was 70% stenosis. Lad, circumflex and very large ramus were free of significant disease. No further intervention was required. Patient also recently started dialysis today. While in dialysis patient had syncopal episode leading to cardiac arrest. Patient was pulseless. Patient required bystander CPR. When EMS arrived CPR continued. Patient was given epinephrine x1. When the patient arrived to the ER there was some question of the patient being pulseless for quite some time. There were able to get a pulse back. Patient intubated. On lab white count 5.4, hemoglobin 7.9. Sodium 137, potassium 4.1, BUN of 61, creatinine 4.6 with a GFR of 13. Glucose 165. Troponin 0.13. Lactic acid 4.0. Chest x-ray shows volume overload. Patient has been stabilize. Patient required dopamine due to low blood pressure. Patient currently on the ventilator. Patient stable at this time. Patient admitted for ICU evaluation and treatment. When I saw the patient, he has been without sedation. Patient remains on the ventilator without sedation. No significant response to pain noted. Family at bedside. 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 Current status also addressed. Nephrology and Cardiology report patient has multiple medical issues with critical heart disease, atrial fibrillation, end-stage renal disease, hypertension and significant CHF. Hospital Course: Please daily notes for details. Patient with multiple medical problems including end-stage renal disease, systolic CHF with EF of 19%, CAD, hypertension. Patient started on hemodialysis on the day of admission. Patient had syncope with cardiac arrest. Patient with send asystole. CPR was initiat ed. Patient received epinephrine. Patient came in to the ER intubated with acute respiratory failure with cardiogenic shock. This was further complicated with acute on chronic systolic CHF and underlying CAD. The course of his stay was complicated. Patient was evaluated for encephalopathy. There was some concern of anoxic brain injury. The patient was seen by multiple specialists including pulmonology, cardiology, neurology and Nephrology. His condition continued to decline. His mentation did not improve. CT scan showed no acute stroke. EEG was abnormal. After several days of no improvement, plan of care was discussed in detail with family. Advanced care planning was also address. Patient was made DNR upon admission. After extensive discussion family decided to withdrawal care as the patient would not have wanted continue treatment. also expressed that the patient would not have wanted further CPR, PEG tube. Patient was extubated. The patient remained stable. At discharge hospice at home was arranged. Patient will go home with hospice at home with comfort measures only. Vital Signs/Physical Exam: Temp Pulse Resp BP Pulse Ox 97.8 F 80 19 125/68 96 09/10/19 04:00 09/10/19 04:00 09/10/19 04:00 09/10/19 04:00 09/10/19 04:00 General: Other (Patient unresponsive to pain) Respiratory: Diminished, Crackles/rales Cardiovascular: Regular rate/rhythm Laboratory Data at Discharge: WBC 6.8 K/uL (4.3-10.9) 09/08/19 04:45 Hgb 8.2 g/dL (13.6-17.9) L 09/08/19 04:45 Hct 26.2 % (39.6-49.0) L 09/08/19 04:45 Plt Count 191 K/uL (152-406) 09/08/19 04:45 PT 19.2 SECONDS (9.5-12.5) H 09/05/19 12:55 INR 1.64 09/05/19 12:55 APTT 46.7 SECONDS (24.3-36.9) H 09/05/19 12:55 Sodium 137 mmol/L (136-145) 09/08/19 04:45 Potassium 4.7 mmol/L (3.5-5.1) 09/08/19 04:45 BUN 52 mg/dL (7-18) H 09/08/19 04:45 Creatinine 4.62 mg/dL (0.55-1.3) H 09/08/19 04:45 Glucose 107 mg/dL (74-106) H 09/08/19 04:45 Magnesium 2.4 mg/dL (1.8-2.4) 09/08/19 04:45 Total Bilirubin 1.6 mg/dL (0.2-1.0) H 09/08/19 04:45 AST 118 U/L (15-37) H 09/08/19 04:45 ALT 100 U/L (12-78) H 09/08/19 04:45 Alkaline Phosphatase 181 U/L (45-117) H 09/08/19 04:45 Troponin I 0.61 ng/mL (0.0-0.045) H* 09/06/19 05:00 Triglycerides 85 mg/dL (<150) 09/06/19 05:00 Cholesterol 81 mg/dL (<200) 09/06/19 05:00 HDL Cholesterol 50 mg/dL (40-60) 09/06/19 05:00 Cholesterol/HDL Ratio 1.62 09/06/19 05:00 Amylase 31 U/L (25-115) 09/05/19 12:55 Lipase 107 U/L (73-393) 09/05/19 12:55 Home Medications: Amiodarone HCl [Cordarone*] 200 mg PO DAILY 06/29/19 Atorvastatin Calcium [Lipitor] 80 mg PO BEDTIME 06/29/19 Cholecalciferol (Vitamin D3) [Vitamin D3] 1 cap PO DAILY 06/29/19 Clopidogrel Bisulfate [Plavix] 75 mg PO DAILY 06/29/19 Ezetimibe 10 mg PO BEDTIME 06/29/19 Famotidine 40 mg PO BEDTIME 06/29/19 Nitroglycerin [Nitrostat*] 0.4 mg SL SEECOM 06/29/19 [place]-3/Dha/Epa/Fish Oil [Fish Oil 1,000 mg Softgel] 2 each PO DAILY 06/29/19 Tamsulosin [Flomax*] 2 cap PO DAILY 06/29/19 Trazodone [Desyrel*] 50 mg PO BEDTIME 06/29/19 Calcitrol [Rocaltrol*] 0.5 mcg PO DAILY 07/12/19 Furosemide [Lasix] 40 mg PO BID 07/12/19 Sertraline HCl 1 tab PO DAILY 07/12/19 Apixaban [Eliquis *] 2.5 mg PO BID 09/05/19 Cyanocobalamin [Vitamin B-12*] 1,000 mcg PO DAILY 09/05/19 Fluticasone Propionate [24 Hour Allergy] 1 spray [place] BID 09/05/19 Gabapentin 100 mg PO TID 09/05/19 Omeprazole [Prilosec] 40 mg PO DAILY 09/05/19 Patient Discharge Instructions: Patient will go home on hospice with comfort measures. Diet: NPO Activity: Bedrest Time spent managing pt's care (in minutes): 55
--- NOTE | 2019-09-11 09:34 | EEG ---
CHART: [id number] TEST ID#: [id number] DATE OF STUDY: 09/08/2019 THE EEG WAS RECORDED PORTABLE IN THE ICU ON A 14 CHANNEL MACHINE. ELECTRODES WERE APPLIED IN THE USUAL MANNER USING THE INTERNATIONAL 10-20 SYSTEM. THE WAKING BACKGROUND RHYTHM IN THIS RECORD CONSISTS OF POORLY DEVELOPED AND POORLY ORGANIZED WAVES OF 4-5 HZ., IN A WIDE DISTRIBUTION WHICH DO NOT ATTENUATE NORMALLY WITH EYE OPENING. MODERATE VOLTAGE 1.5-3 HZ ACTIVITY IS EXPRESSED IN THE FRONTAL AND CENTRAL REGIONS. THERE ARE NO FOCAL OR LATERALIZING FEATURES. NO EPILEPTIFORM ACTIVITY APPEARS. SLEEP DID NOT OCCUR. HYPERVENTILATION WAS NOT PERFORMED. PHOTIC STIMULATION WAS NOT PERFORMED. IMPRESSION: THIS IS A MODERATELY ABNORMAL EEG WHICH HAS IMPROVED VERY SLIGHTLY COMPARED TO THE PREVIOUS EEG DONE 09/06/2019. HOWEVER, THE FINDING ARE CONSISTENT WITH A MODERATE NON-SPECIFIC DIFFUSE DISTURBANCE IN CEREBRAL ACTIVITY. THE DIFFERENTIAL DIAGNOISIS STILL INCLUDE HYPOXIC/ ISCHEMIC IR TOXIC/ METABOLIC CAUSES.
== END 2019-09-10 15:43 | disposition hospice, home (50) | DRG 291 ==
LOC: ER 12:40 → ERHOLD 14:37 → 3RD-ICU 15:27 → 2ND 09-10 05:42
PROVIDERS: ADMIT Family Medicine; ATTEND Family Medicine
PROC: 5A1945Z Respiratory Ventilation, 24-96 Consecutive Hours (ICD-10-PCS; principal; 2019-09-05)
PROC: 0BH17EZ Insertion of Endotracheal Airway into Trachea, Via Natural or Artificial Opening (ICD-10-PCS; 2019-09-05)
PROC: 5A1D70Z Performance of Urinary Filtration, Intermittent, Less than 6 Hours Per Day (ICD-10-PCS; 2019-09-05)
PROC: 02HV33Z Insertion of Infusion Device into Superior Vena Cava, Percutaneous Approach (ICD-10-PCS; 2019-09-05)
PROC: 5A1D70Z Performance of Urinary Filtration, Intermittent, Less than 6 Hours Per Day (ICD-10-PCS; 2019-09-07)
PROC: 5A1D70Z Performance of Urinary Filtration, Intermittent, Less than 6 Hours Per Day (ICD-10-PCS; 2019-09-08)
DX: R57.0 Cardiogenic shock (principal); J96.00 Acute respiratory failure, unspecified whether with hypoxia or hypercapnia; I50.23 Acute on chronic systolic (congestive) heart failure; N18.6 End stage renal disease; J96.01 Acute respiratory failure with hypoxia; G93.40 Encephalopathy, unspecified; I13.2 Hypertensive heart and chronic kidney disease with heart failure and with stage 5 chronic kidney disease, or end stage renal disease; E87.2 Acidosis; I25.10 Atherosclerotic heart disease of native coronary artery without angina pectoris; T68.XXXA Hypothermia, initial encounter; D63.8 Anemia in other chronic diseases classified elsewhere; Z95.5 Presence of coronary angioplasty implant and graft; Z66 Do not resuscitate; Z79.899 Other long term (current) drug therapy; Z79.02 Long term (current) use of antithrombotics/antiplatelets; Z79.01 Long term (current) use of anticoagulants; Z88.5 Allergy status to narcotic agent; E78.5 Hyperlipidemia, unspecified; I25.2 Old myocardial infarction; Z86.73 Personal history of transient ischemic attack (TIA), and cerebral infarction without residual deficits; Z95.1 Presence of aortocoronary bypass graft; Z95.0 Presence of cardiac pacemaker; E83.51 Hypocalcemia; I73.9 Peripheral vascular disease, unspecified; D63.1 Anemia in chronic kidney disease
CPT/HCPCS: 36415; 51702; 70450; 71045; 80048; 80053; 80061; 80076; 82150; 82550; 82553; 82805; 83605; 83690; 83735; 84145; 84484; 85025; 85610; 85730; 86317; 87040; 87205; 87340; 90935; 92950; 93005; 93306; 94002; 94003; 95816; 96365; 96367; 99291; J0171; J0696; J1265; J1644; J2270; J2405; J3010; J3370; J7030; Q5106